=== PATIENT | female | born 1990 | race African-American/Black ===

== ENCOUNTER 2023-04-03 21:06 | Outpatient (REF) | payer BC, SELFPAY ==
[2023-04-09 07:13] LABS: Age Gdln ACOG Testing Note (.); HPV Aptima Positive (Negative); HPV Genotype 16 Negative (Negative); HPV Genotype 18,45 Negative (Negative); IGP, Aptima HPV, rfx 16/18,45 Note (.)
== END 2023-04-03 21:07 | disposition home or self-care (01) ==
LOC: LAB 21:06
PROVIDERS: Visit Provider Obstetrics & Gynecology
DX: Z12.4 Encounter for screening for malignant neoplasm of cervix (principal)
CPT/HCPCS: G0145

== ENCOUNTER 2023-09-17 10:33 | Outpatient (OUT) | payer BC, SELFPAY ==
[2023-09-17 11:14] LABS: Basophils Absolute Auto 0.1 10^3/uL (0.0-0.1); Basophils Percent Auto 1.3 % (0.2-2.0); Eosinophils Absolute Auto 0.1 10^3/uL (0.0-0.7); Eosinophils Percent Auto 1.5 % (0.9-7.0); Hematocrit 30.3 % (36.0-48.0); Hemoglobin 8.8 g/dL (12.0-16.0); Immature Granulocytes Abs Auto 0.02 10^3/uL (0.00-0.03); Immature Granulocytes Pct Auto 0.3 % (0.0-0.5); Lymphocytes Absolute Auto 2.3 10^3/uL (1.2-3.8); Lymphocytes Percent Auto 29.8 % (20.5-60.0); Mean Corpuscular Hemoglobin 23.9 pg (26.7-34.0); Mean Corpuscular Volume 82.3 fL (81.0-99.0); Mean Platelet Volume 10.5 fL (9.5-13.5); Monocytes Absolute Auto 0.7 10^3/uL (0.3-0.8); Monocytes Percent Auto 9.2 % (1.7-12.0); Neutrophils Absolute Auto 4.5 10^3/uL (1.4-6.5); Neutrophils Percent Auto 57.9 % (43.0-75.0); Platelet Count 381 10^3/uL (150-450); Red Blood Count 3.68 10^6/uL (4.20-5.40); Red Cell Distribution Width 15.2 % (11.0-15.0); White Blood Count 7.8 10^3/uL (4.0-11.0)
[2023-09-17 11:23] LABS: Estimated Average Glucose 114 mg/dL; Glycohemoglobin A1C 5.6 % (4.5-6.2)
[2023-09-17 12:00] LABS: Alanine Aminotransferase 21 U/L (14-59); Albumin Globulin Ratio 0.8; Albumin Level 3.2 g/dL (3.4-5.0); Alkaline Phosphatase 67 U/L (46-116); Anion Gap 13.1; Aspartate Amino Transferase 16 U/L (15-37); BUN Creatinine Ratio 15.6; Bilirubin Total 0.2 mg/dL (0.2-1.0); Calcium 8.5 mg/dL (8.5-10.1); Carbon Dioxide 24.8 mmol/L (21.0-32.0); Chloride 108 mmol/L (98-107); Chol HDL Ratio 3.2; Cholesterol 193 mg/dL (<=200); Estimated GFR (African America >60 (>=60); Estimated GFR (Non-African Ame >60 (>=60); Globulin 4.2 g/dL; Glucose 92 mg/dL (74-106); HDL Cholesterol 61 mg/dL (40-60); Potassium 3.9 mmol/L (3.5-5.1); Sodium 142 mmol/L (136-145); Thyroid Stimulating Hormone 0.494 uIU/mL (0.358-3.740); Total Protein 7.4 g/dL (6.4-8.2); Triglycerides 116 mg/dL (<=150); VLDL CHOLESTEROL 23.2 mg/dL
== END 2023-09-17 10:34 | disposition home or self-care (01) ==
LOC: LAB 10:35
PROVIDERS: Visit Provider Nurse Practitioner
DX: Z00.00 Encounter for general adult medical examination without abnormal findings (principal)
CPT/HCPCS: 36415; 80053; 80061; 83036; 84443; 85025

== ENCOUNTER 2023-09-20 03:13 | Outpatient (OUT) | payer BC, SELFPAY ==
--- OUTSIDE RECORDS SUMMARY | 2023-09-20 03:17 | XMS_ITS | CCD ---
Author Name Unknown Address [address] [place] [id number] Organization [facility] Care Team Providers Care Spool Tender Name Role Phone Alice Tamez Unavailable DIPESH, DR JANET Johnson Primary Care Unavailable KARASIK, DR MENJIVAR Admitting Unavailable KARASIK, DR MENJIVAR Attending Unavailable KARASIK, DR MENJIVAR Consulting Unavailable LANDON, DR JANET Johnson Primary Care Unavailable KARASIK, DR MENJIVAR Admitting Unavailable KARASIK, DR MENJIVAR Attending Unavailable KARASIK, DR MENJIVAR Consulting Unavailable HOY, DR SOSA Consulting Unavailable LANDON, DR JANET Johnson Primary Care Unavailable HOY, DR SOSA Admitting Unavailable HOY, DR SOSA Attending Unavailable LANDON, DR JANET Johnson Admitting Unavailable LANDON, DR JANET Johnson Attending Unavailable LANDON, DR JANET Johnson Consulting Unavailable DIPESH, DR JANET Johnson Primary Care Unavailable Oly Reed Unavailable KASSANDRA HODGES Attending Unavailable Medications Current Medications Medication Drug Class(es) Dates Sig (Normalized) Sig (Original) 08/10 (3 sources) 08/10 No t-Taking 08/10 Ac tive montelukast 10 mg oral tablet (5 sources) Leukotriene Receptor Antagonist Start: 06-11-2023 take 1 tablet by mouth every twenty-four hours Montelukast Sodium 10 MG 1 tablet Orally Once a day for 30 day(s) May, Active predniSONE 20 mg oral tablet (3 sources) Start: 06-11-2023 take 1 tablet by mouth every twelve hours predniSONE 20 MG 1 tablet Orally bid for 5 day(s) Jun, Active Completed/Discontinued Medications Medication Drug Class(es) Dates Sig (Normalized) Sig (Original) dextromethorphan hydrobromide 1.5 mg/ml / pyrilamine maleate 1.5 mg/ml oral solution (2 sources) Uncompetitive U-vdhyks-F-aspartat e Receptor Antagonist, Sigma-1 Agonist Start: 06-11-2023 take 10 mL by mouth every eight hours [place] DM 7.5-7.5 MG/5ML 10 mL Orally every 8 hours for 5 days May, Not-Taking {21 (ethinyl estradiol 0.035 MG / ethynodiol diacetate 1 MG Oral Tablet) / (inert ingredients 1 MG Oral Tablet) } Pack [Kelnor 1/35 Day] (2 sources) Progestin, Estrogen take 1 tablet by mouth every twenty-four hours Kelnor 1/35 1-35 MG-MCG 1 tablet Orally Once a day Not-Taking take 1 tablet by connie th every twenty-four hours Kelnor 1/35 1-35 MG-MCG 1 tablet Orally Once a day Active methylPREDNISolone (3 sources) Corticosteroid Start: 06-07-2017 Depo-Medrol 40 mg May, 40 mg penicillin v potassium 500 mg oral tablet (3 sources) Start: 10-12-2021 take 1 tablet by mouth every twelve hours Penicillin V Potassium 500 MG 1 tablet Orally Twice a day for 10 day(s) Sep, Not-Taking Problems Active Problems Problem Classification Problem Date Documented Date Episodic/Chronic Other female genital disorders (4 sources) Other specified noninflammatory disorders of vagina; Translations: [OTH SPEC NONINFLAMMATORY D/O VAGINA] Onset: 08-01-2022 Episodic Other upper respiratory infections (4 sources) Streptococcal pharyngitis; Translations: [Acute upper respiratory infection, unspecified] Onset: 10-12-2021 Resolved: 10-12-2021 Episodic Past or Other Problems Problem Classification Problem Date Documented Date Episodic/Chronic Immunizations and screening for infectious disease (6 sources) Contact with and (suspected) exposure to other viral communicable diseases; Translations: [Encounter for screening for human papillomavirus (HPV)] Onset: 10-05-2021 Resolved: 10-12-2021 Episodic Other screening for suspected conditions (not mental disorders or infectious disease) (4 sources) Encounter for screening for malignant neoplasm of cervix; Translations: [ENC SCREENING MALIG NEOPLASM CERV] Onset: 03-05-2022 Episodic Unclassified (1 source) Contact with and (suspected) exposure to covid-19 Z20.822 Results Test Name Value Interpretation Reference Range Facility [facility] 06-24-2023 S. pyogenes Org specific cx Ql (Throat) Negative [facility] [employer] Other Quick Strep [facility] [employer] Other COVID/FLU/RSV RT-PCRon 06-11 SARS-CoV-2 (COVID-19) RNA NATALIIA+probe Ql (Unsp spec) Negative [facility] [employer] Other COVID/FLU/RSV RT-PCR Negative [facility] [employer] Other CHLAMYDIA/GONOCOCCUS NATALIIA (SW AB/URINE/PAPon 08-03-2022 Chlamydia trachomatis, NATALIIA Negative Normal Negative [facility] Comment on above: Performed By: #### C T/NGNA #### [facility] [address] [place] [address] Dr. Anahy Sarah Neisseria gonorrhoeae, NATALIIA Negative Normal Negative [facility] Comment on above: Performed By: #### C T/NGNA #### [facility] [address] [place] [address] Dr. Anahy Sarah VAGINITIS/VAGINOSIS DNA PROB Omar 08-02-2022 Radha species Positive Abnormal Negative [facility] Comment on above: Performed By: #### V AGINT #### [facility] [address] [place] [address] Dr. Anahy Sarah Gardnerella vaginalis Negative Normal Negative [facility] Comment on above: Performed By: #### V AGINT #### [facility] [address] [place] [address] Dr. Anahy Sarah Trichomonas vaginalis Negative Normal Negative [facility] Comment on above: Performed By: #### V AGINT #### [facility] [address] [place] [address] Dr. Anahy Sarah CBC AUTO DIFFon 04-12-2022 BASO # 0.1 103/ul Normal 0.0-0.1 [facility] Comment on above: Performed By: #### C BC #### [facility] [address] [place] [address] Dr. Anahy Sarah Basophils/100 WBC (Bld) 0.9 % Normal 0.2-2.0 [facility] Comment on above: Performed By: #### C BC #### [facility] [address] [place] [address] Dr. Anahy Sarah EO # 0.1 103/ul Normal 0.0-0.7 [facility] Comment on above: Performed By: #### C BC #### [facility] [address] [place] [address] Dr. Anahy Sarah Eosinophils/100 WBC (Bld) 1.3 % Normal 0.9-7.0 [facility] Comment on above: Performed By: #### C BC #### [facility] [address] [place] [address] Dr. Anahy Sarah Erythrocyte distribution width (RBC) [Ratio] 12.6 % Normal 11.0-15.0 [facility] Comment on above: Performed By: #### C BC #### [facility] [address] [place] [address] Dr. Anahy Sarah Hematocrit (Bld) [Volume fraction] 35.5 % Critically low 36.0-48.0 [facility] Comment on above: Performed By: #### C BC #### [facility] [address] [place] [address] Dr. Anahy Sarah Hemoglobin (Bld) [Mass/Vol] 11.5 g/dL Critically low 12.0-16.0 [facility] Comment on above: Performed By: #### C BC #### [facility] [address] [place] [address] Dr. Anahy Sarah IG # 0.02 10e3/ul Normal 0.00-0.03 [facility] Comment on above: Performed By: #### C BC #### [facility] [address] [place] [address] Dr. Anahy Sarah IG % 0.2 % Normal 0.0-0.5 [facility] Comment on above: Performed By: #### C BC #### [facility] [address] [place] [address] Dr. Anahy Sarah LYMPH # 2.5 103/ul Normal 1.2-3.8 [facility] Comment on above: Performed By: #### C BC #### [facility] [address] [place] [address] Dr. Anahy Sarah Lymphocytes/100 WBC (Bld) 26.3 % Normal 20.5-60.0 [facility] Comment on above: Performed By: #### C BC #### [facility] [address] [place] [address] Dr. Anahy Sarah MANUAL DIFF REQ NO Normal [facility] Comment on above: Performed By: #### C BC #### [facility] [address] [place] [address] Dr. Anahy Sarah MCH (RBC) [Entitic mass] 28.8 pg Normal 26.7-34.0 [facility] Comment on above: Performed By: #### C BC #### [facility] [address] [place] [address] Dr. Anahy Sarah MCHC (RBC) [Mass/Vol] 32.4 g/dL Normal 29.9-35.2 [facility] Comment on above: Performed By: #### C BC #### [facility] [address] [place] [address] Dr. Anahy Sarah MCV (RBC) [Entitic vol] 88.8 fL Normal 81.0-99.0 [facility] Comment on above: Performed By: #### C BC #### [facility] [address] [place] [address] Dr. Anahy Sarah MONO # 0.7 103/ul Normal 0.3-0.8 [facility] Comment on above: Performed By: #### C BC #### [facility] [address] [place] [address] Dr. Anahy Sarah Monocytes/100 WBC (Bld) 7.1 % Normal 1.7-12.0 [facility] Comment on above: Performed By: #### C BC #### [facility] [address] [place] [address] Dr. Anahy Sarah NEUT # 6.0 103/ul Normal 1.4-6.5 [facility] Comment on above: Performed By: #### C BC #### [facility] [address] [place] [address] Dr. Anahy Sarah Neutrophils/100 WBC (Bld) 64.2 % Normal 43.0-75.0 [facility] Comment on above: Performed By: #### C BC #### [facility] [address] [place] [address] Dr. Anahy Sarah Platelet mean volume (Bld) [Entitic vol] 10.1 fL Normal 9.5-13.5 [facility] Comment on above: Performed By: #### C BC #### [facility] [address] [place] [address] Dr. Anahy Sarah PLT 287 103/ul Normal 150-450 [facility] Comment on above: Performed By: #### C BC #### [facility] [address] [place] [address] Dr. Anahy Sarah RBC 4.00 106/ul Critically low 4.20-5.40 [facility] Comment on above: Performed By: #### C BC #### [facility] [address] [place] [address] Dr. Anahy Sarah WBC 9.4 103/ul Normal 4.0-11.0 [facility] Comment on above: Performed By: #### C BC #### [facility] [address] [place] [address] Dr. Anahy Sarah GLYCOHEMOGLOBIN A1Con 2021 ADA RECOMMENDATION SEE BELOW Normal [facility] Comment on above: Result Comment: ADA RECOMMENDED LIMIT 4.0 - 6.0 ADA THERAPEUTIC TARGET < 7.0 ACTION SUGGESTED > 7.0 Performed By: #### A 1C #### [facility] [address] [place] [address] Dr. Anahy Sarah Glucose [Mass/Vol] 111 mg/dL Normal [facility] Comment on above: Performed By: #### A 1C #### [facility] [address] [place] [address] Dr. Anahy Sarah HbA1c (Bld) [Mass fraction] 5.5 % Normal 4.5-6.2 [facility] Comment on above: Performed By: #### A 1C #### [facility] [address] [address] [address] Anahy Sarah LIPID PROFILEon 04-12-2022 CHOL-HDL RATIO NORM SEE BELOW Normal [facility] Comment on above: Result Comment: 3.3 - 4.4 LOW RISK 4.4 - 7.1 AVERAGE RISK 7.1 - 11.0 MODERATE RISK >11.0 HIGH RISK Performed By: #### C MP, LIPID #### [facility] [address] [address] [address] Anahy Sarah Cholesterol [Mass/Vol] 168 mg/dL Normal <=200 [facility] Comment on above: Performed By: #### C MP, LIPID #### [facility] [address] [address] [address] Anahy Sarah Cholesterol in HDL [Mass/Vol] 47 mg/dL Normal 40-60 [facility] Comment on above: Performed By: #### C MP, LIPID #### [facility] [address] [address] [address] Anahy Sarah Cholesterol in LDL [Mass/Vol] 81.8 mg/dL Normal [facility] Comment on above: Performed By: #### C MP, LIPID #### [facility] [address] [address] [address] Anahy Sarah Cholesterol.total/Ch olesterol in HDL [Mass ratio] 3.6 {ratio} Normal [facility] Comment on above: Performed By: #### C MP, LIPID #### [facility] [address] [address] [address] Anahy Sarah HDL NORMAL > or = 60 mg/dl - LOW CARDIOVASCULAR RISK <40 mg/dl - HIGH CARDIOVASCULAR RISK Normal [facility] Comment on above: Performed By: #### C MP, LIPID #### [facility] [address] [address] [address] Anahy Sarah LDL CALC NORMAL SEE BELOW Normal [facility] Comment on above: Result Comment: <100 mg/dl OPTIMAL 100 - 129 mg/dl NEAR OR ABOVE OPTIMAL 130 - 159 mg/dl BORDERLINE HIGH 160 - 189 mg/dl HIGH >190 mg/dl VERY HIGH Performed By: #### C MP, LIPID #### [facility] [address] [place] [address] Dr. Anahy Sarah Triglyceride [Mass/Vol] 196 mg/dL Critically high <=150 [facility] Comment on above: Performed By: #### C MP, LIPID #### [facility] [address] [place] [address] Dr. Anahy Sarah VLDL CALC 39.2 mg/dL Normal [facility] Comment on above: Performed By: #### C MP, LIPID #### [facility] [address] [place] [address] Dr. Anahy Sarah PROF 14(COMP METB)on 022 Albumin [Mass/Vol] 3.5 g/dL Normal 3.4-5.0 [facility] Comment on above: Performed By: #### C MP, LIPID #### [facility] [address] [place] [address] Dr. Anahy Sarah Albumin/Globulin [Mass ratio] 0.9 {ratio} Normal [facility] Comment on above: Performed By: #### C MP, LIPID #### [facility] [address] [place] [address] Dr. Anahy Sarah ALP [Catalytic activity/Vol] 54 U/L Normal 46-116 [facility] Comment on above: Performed By: #### C MP, LIPID #### [facility] [address] [place] [address] Dr. Anahy Sarah ALT [Catalytic activity/Vol] 21 U/L Normal 14-59 [facility] Comment on above: Performed By: #### C MP, LIPID #### [facility] [address] [place] [address] Dr. Anahy Sarah Anion gap [Moles/Vol] 13.3 mmol/L Normal [facility] Comment on above: Performed By: #### C MP, LIPID #### [facility] [address] [place] [address] Dr. Anahy Sarah AST [Catalytic activity/Vol] 14 U/L Critically low 15-37 [facility] Comment on above: Performed By: #### C MP, LIPID #### [facility] [address] [place] [address] Dr. Anahy Sarah Bilirubin [Mass/Vol] 0.4 mg/dL Normal 0.2-1.0 [facility] Comment on above: Performed By: #### C MP, LIPID #### [facility] [address] [place] [address] Dr. Anahy Sarah Calcium [Mass/Vol] 8.5 mg/dL Normal 8.5-10.1 [facility] Comment on above: Performed By: #### C MP, LIPID #### [facility] [address] [place] [address] Dr. Anahy Sarah Chloride [Moles/Vol] 105 mmol/L Normal 98-107 [facility] Comment on above: Performed By: #### C MP, LIPID #### [facility] [address] [place] [address] Dr. Anahy Sarah CO2 [Moles/Vol] 23.4 mmol/L Normal 21.0-32.0 [facility] Comment on above: Performed By: #### C MP, LIPID #### [facility] [address] [place] [address] Dr. Anahy Sarah Creatinine [Mass/Vol] 0.74 mg/dL Normal 0.55-1.02 [facility] Comment on above: Performed By: #### C MP, LIPID #### [facility] [address] [place] [address] Dr. Anahy Sarah EGFR-AF GAMBIAN >60 Normal >=60 [facility] Comment on above: Performed By: #### C MP, LIPID #### [facility] [address] [place] [address] Dr. Anahy Sarah EGFR-NON AF GAMBIAN >60 Normal >=60 [facility] Comment on above: Performed By: #### C MP, LIPID #### [facility] [address] [place] [address] Dr. Anahy Sarah Globulin (S) [Mass/Vol] 3.7 g/dL Normal [facility] Comment on above: Performed By: #### C MP, LIPID #### [facility] [address] [place] [address] Dr. Anahy Sarah Glucose [Mass/Vol] 96 mg/dL Normal 74-106 [facility] Comment on above: Performed By: #### C MP, LIPID #### [facility] [address] [place] [address] Dr. Anahy Sarah Potassium [Moles/Vol] 3.7 mmol/L Normal 3.5-5.1 [facility] Comment on above: Performed By: #### C MP, LIPID #### [facility] [address] [place] [address] Dr. Anahy Sarah Protein [Mass/Vol] 7.2 g/dL Normal 6.4-8.2 [facility] Comment on above: Performed By: #### C MP, LIPID #### [facility] [address] [place] [address] Dr. Anahy Sarah Sodium [Moles/Vol] 138 mmol/L Normal 136-145 [facility] Comment on above: Performed By: #### C MP, LIPID #### [facility] [address] [place] [address] Dr. Anahy Sarah Urea nitrogen [Mass/Vol] 6.0 mg/dL Critically low 7.0-18.0 [facility] Comment on above: Performed By: #### C MP, LIPID #### [facility] [address] [place] [address] Dr. Anahy Sarah Urea nitrogen/Creatinine [Mass ratio] 8.1 mg/mg Normal [facility] Comment on above: Performed By: #### C MP, LIPID #### [facility] [address] [place] [address] Dr. Anahy Sarah PAP ACOG PANEL 2: 30 to 65on 03-09-2022 . . Normal [facility] Comment on above: Result Comment: Perf ormed at: WB Performed By: #### [id number] #### [facility] [address] [place] [address] Dr. Anahy Sarah Age Gdln ACOG Testing 30-65 Normal [facility] Comment on above: Performed By: #### [id number] #### [facility] [address] [place] [address] Dr. Anahy Sarah DIAGNOSIS: Comment Normal [facility] Comment on above: Result Comment: NEGA TIVE FOR INTRAEPITHELIAL LESION OR MALIGNANCY. Performed at: WB Performed By: #### [id number] #### [facility] [address] [place] [address] Dr. Anahy Sarah HPV Aptima Negative Normal Negative [facility] Comment on above: Result Comment: This nucleic acid amplification test detects fourteen high-risk HPV types (16,18,31,33,35,39,45,51,52,56,58,59,66,68) without differentiation. Performed at: =G Performed By: #### [id number] #### [facility] [address] [place] [address] Dr. Anahy Sarah Methodology: Comment Normal [facility] Comment on above: Result Comment: This liquid based ThinPrep(R) pap test was screened with the use of an image guided system. Performed at: WB Performed By: #### [id number] #### [facility] [address] [place] [address] Dr. Anahy Sarah Note: Comment Normal [facility] Comment on above: Result Comment: The Pap smear is a screening test designed to aid in the detection of premalignant and malignant conditions of the uterine cervix. It is not a diagnostic procedure and should not be used as the sole means of detecting cervical cancer. Both false-positive and false-negative reports do occur. . Performed at: WB Performed By: #### [id number] #### [facility] [address] [place] [address] Dr. Anahy Sarah Performed by: Comment Normal [facility] Comment on above: Result Comment: Nayla Gacria, Bird Raiser (ASCP) Performed at: WB Performed By: #### [id number] #### [facility] [address] [place] [address] Dr. Anahy Sarah Specimen adequacy: Comment Normal [facility] Comment on above: Result Comment: Sati sfactory for evaluation. Endocervical and/or squamous metaplastic cells (endocervical component) are present. Performed at: WB Performed By: #### [id number] #### [facility] [address] [address] [address] Anahy Sarah COVID Quick Testingon 2021 Result Negative [facility] Other Quick Fluon 10-12-2021 FLUAV Ab CF (S) [Titer] Negative [facility] Other FLUBV Ab CF (S) [Titer] Negative [facility] Other S. pyogenes Ag Ql (Throat)on 10-12-2021 S. pyogenes Org specific cx Ql (Throat) Positive [facility] Other Vital Signs Date Time Vital Sign Value Performing Clinician Facility 06-24-2023 11:15-0500 Body height 167.64 cm Oly Cervantesmond Other [facility] Other 06-24-2023 11:15-0500 Body mass index (BMI) [Ratio] 38.73 kg/m2 Oly Brianna Other [facility] Other 06-24-2023 11:15-0500 Body temperature 99.8 [degF] Olytrent Reed Other [facility] Other 06-24-2023 11:15-0500 Body weight 108.86 kg Oly Brianna Other [facility] Other 06-24-2023 11:15-0500 Respiratory rate 19 /min Oly Reed Other [facility] Other 06-24-2023 11:15-0500 SaO2% (BldA) [Mass fraction] 98 % Oly Reed Other [facility] Other 06-11-2023 12:20-0500 Body height 167.64 cm Alice Tamez Other [facility] Other 06-11-2023 12:20-0500 Body mass index (BMI) [Ratio] 39.25 kg/m2 Alice Tamez Other [facility] Other 06-11-2023 12:20-0500 Body temperature 98.4 [degF] Alcie Tamez Other [facility] Other 06-11-2023 12:20-0500 Body weight 110.32 kg Alice Tamez Other [facility] Other 06-11-2023 12:20-0500 Diastolic blood pressure 93 mm[Hg] Alice Atmez Other [facility] Other 06-11-2023 12:20-0500 Respiratory rate 18 /min Alice Tamez Other [facility] Other 06-11-2023 12:20-0500 SaO2% (BldA) [Mass fraction] 97 % Alice Tamez Other [facility] Other 06-11-2023 12:20-0500 Systolic blood pressure 144 mm[Hg] Alice Tamez Other [facility] Other 10-12-2021 10:20-0400 Body height 167.64 cm Alice Tamez Other [facility] Other 10-12-2021 10:20-0400 Body mass index (BMI) [Ratio] 38.73 kg/m2 Alice Taemz Other [facility] Other 10-12-2021 10:20-0400 Body temperature 98.3 [degF] Alice Tamez Other [facility] Other 10-12-2021 10:20-0400 Body weight 108.86 kg Alice Tamez Other [facility] Other 10-12-2021 10:20-0400 Respiratory rate 18 /min Alice Forteler Other [facility] Other 10-12-2021 10:20-0400 SaO2% (BldA) [Mass fraction] 97 % Alice Forteler Other [facility] Other Encounters Encounter Date Encounter Type Care Provider Facility Start: 08-22-2023 End: 08-22-2023 ambulatory KASSANDRA SPARKSSILVANO Not Available Start: 06-24-2023 End: 06-24-2023 ambulatory Oly Reed Other [facility] Other Start: 06-24-2023 Office outpatient vi sit 15 minutes Oly Reed [facility] Start: 06-11-2023 End: 06-11-2023 ambulatory Alice Tamez Other [facility] Other Start: 06-11-2023 Office outpatient vi sit 25 minutes Alice Tamez [facility] Start: 08-01-2022 End: 08-01-[address] JANET LANDON Facility:[facility] Start: 04-17-2022 Encounter for genera l adult medical examination without abnormal findings DR JANET LANDON [facility] Start: 04-12-2022 End: 04-13-[address] JANET LANDON Facility:[facility] Start: 04-12-2022 End: 04-13-2022 Encounter for general adult medical examination without abnormal findings DR JANET LANDON Facility:[facility] Start: 03-05-2022 End: 03-05-[address] JANET LANDON Facility:[facility] Start: 10-12-2021 End: 10-12-2021 ambulatory Alice Tamez Other [facility] Other Start: 10-12-2021 Office outpatient vi sit 15 minutes Alice Tamez [facility] Start: 10-05-2021 End: 10-06-[address] SHEILA LYONS Facility:[facility] Payers Date Payer Category Payer Unknown [id number] 2019 Unknown [id number] 1991 Unknown [id number] 2.16.84 [id number] 1991 Unknown [id number] 2.16.84 [id number] 1991 Unknown [id number] 2.16.84 [id number] 1991 Unknown [id number] 2.16.84 [id number] 1959 Self-pay [id number] Unknown [id number] 2.16.84 [id number] Social History Date Type Detail Facility Unknown if ever smoked [facility] [employer] Other Sex Assigned At Sex Assigned At Bir th [employer] Other Evaluation note 06-24-2023 Note Date & Type Note Facility 06-24-2023 Evaluation note Encounter Date Diagnosis Assessment Notes Jun, Sore throat (ICD-10 - J02.9) Jun, Laryngitis (ICD-10 - J04.0) Laryngitis home care material was printed Drink plenty fluids, get plenty of rest. Take the prednisone as prescribed until gone. Take Tylenol or Motrin as needed for aches pains or fevers. Run a coolmist humidifier at the bedside. Follow-up with your family physician if no improvement in 2 to 3 days [employer] Other Evaluation note 06-11-2023 Note Date & Type Note Facility 06-11-2023 Evaluation note Encounter Date Diagnosis Assessment Notes May, Contact with and (suspected) exposure to covid-19 (ICD-10 - Z20.822) May, Viral URI with cough (ICD-10 - J06.9) Advised patient that COVID/Influenza A/B/RSV PCR test was negative today in office. Advised that we will treat as viral URI. Advised that viral illnesses may last 7-10 days, antibiotics are not indicated at this time. Encouraged supportive care as directed, increase fluids and rest, Tylenol as directed, rx of [place] and prednisone, OTC Flonase, cool mist humidifier, throat lozenges. Patient requested refill of Singulair, states that PCP has retired and that she is on a wait list for a new one. Will send in 30-day supply with no refills. Discussed infection control practices such as good hand washing and mask wearing. Work note provided, no extension allowed. Patient to follow up with PCP if symptoms persist or worsen despite treatment. Immediate eval for SOB, difficulty breathing, chest pain, fevers that do not break with antipyretic or any other concerning symptoms as reviewed on patient education handout. Patient verbalizes understanding and is agreeable to treatment plan. Patient left in stable condition [employer] Other Evaluation note 10-12-2021 Note Date & Type Note Facility 10-12-2021 Evaluation note Encounter Date Diagnosis Assessment Notes Sep, Contact with and (suspected) exposure to other viral communicable diseases (ICD-10 - Z20.828) Sep, Strep pharyngitis (ICD-10 - J02.0) Advised patient that rapid strep test was positive. Advised that rapid COVID antigen and Influenza A/B test was negative. Will treat today with antibiotic. Reviewed allergies and recent antibiotic use. Instructed patient to take antibiotic as prescribed, with food and plenty of water, complete entire course even if feeling better. Advised patient that they are contagious for 24 hours after starting antibiotic. Discussed infection control and good hand hygiene. New tooth brush in 2-3 days after starting antibiotic. Supportive care as directed. Push fluids and rest, Tylenol or Motrin as needed for fever or discomfort, warm salt water gargles, throat lozenges as needed. Patients symptoms should improve in the next 48 hours, eval by PCP or UC if symptoms have not improved with treatment. Discussed in depth warning symptoms that require immediate eval. Patient verbalizes understanding and is agreeable to treatment plan Sep, Other Additional time spent conducting pre-visit phone call, screening for symptoms, instructions on social distancing, application and removal of PPE, and cleaning of examination room, equipment and supplies was preformed. Patient education given for testing methodology and results. Patient care instructions given in writting by [facility] At Home document [employer] Other History general Narrative - Reported Note Date & Type Note Facility History general Narrative - Reported Type Medical History asthma Surgical History cyst removal 2004 Hospitalization History See Above Hospitalization History covid 2020 [employer] Other Summary Purpose Family History No Family History Records FoundNo Family History Records Found Advance Directives No Advanced Directives Records FoundNo Advanced Directives Records Found Additional Source Comments REASON FOR VISIT (unrecogniz ed section and content) BLACK JOURDAN, SORE THRAOT, B/A, FEVERWHEEZING AND SORE THROAT, COUGHSORE THROAT, VOICE IS LEAVING INFORMATION SOURCE (unrecogn ized section and content) DATE CREATED AUTHOR 08/03/2022 [facility] DATE CREATED AUTHOR 'S ORGANIZ ATION 08/23/2023 [facility] FOR RECORDS PERTAINING TO PATIENTS WHO ARE OR HAVE BEEN ENROLLED IN A CHEMICAL DEPENDENCY/SUBSTANCEABUSE PROGRAM, SOME INFORMATION MAY BE OMITTED. This clinical summary was aggregated from multiple sources. Caution should be exercised in using it in the provision of clinical care. This summary normalizes information from multiple sources, and as a consequence, information in this document may materially change the coding, format and clinical context of patient data. In addition, data may be omitted in some cases. CLINICAL DECISIONS SHOULD BE BASED ON THE PRIMARY CLINICAL RECORDS. [facility] [employer] [facility]. provides no warranty or guarantee of the accuracy or completeness of information in this document.
== END 2023-09-20 03:14 | disposition home or self-care (01) ==
LOC: LAB 03:14
PROVIDERS: Visit Provider Nurse Practitioner
DX: D64.89 Other specified anemias (principal)
CPT/HCPCS: 36415; 82607; 82728; 83540

== ENCOUNTER 2023-10-17 10:53 | Outpatient (OUT) | payer BC, SELFPAY ==
--- NOTE | 2023-10-17 10:55 | US_ITS ---
The [address] [address] Patient Name: CHRIS GARIBAY MRN: [id number] date: 1990 Sex: F Assigned Patient Location: [facility] Current Patient Location: [facility] Accession/Order Number: [id number] Exam Date: 10/17/2023 10:56 Report Date: 10/17/2023 13:47 At the request of: JENNY HAMMER Procedure: US pelvis w/ transvaginal EXAMINATION: US pelvis w/ transvaginal HISTORY: HEAVY IRREGULAR PERIODS COMPARISON: No relevant comparison available. FINDINGS: Transabdominal and transvaginal images The uterus is prominent in size, normal in contour, the uterus measures 10.4 x 4.8 x 7.2 cm. the uterus is anteverted, anteflexed. Heterogeneous myometrium with a 1.2 cm hypoechogenic mass in the fundal myometrium The endometrium measures 15 mm, heterogeneous. The right ovary measures 3.0 x 1.8 x 2.9. Normal color flow. Normal subcentimeter follicles. The left ovary is seen on transabdominal imaging only measuring 3.2 x 2.2 x 2.9 cm. Normal color flow US/US pelvis w/ transvaginal IMPRESSION: Heterogeneous myometrium is a 1.2 cm fundal mass. Fibroid is favored Prominent heterogeneous endometrium, correlate with the menstrual cycle Electronically authenticated by: MAREN STEPHENSON Date: 10/17/2023 13:47
== END 2023-10-17 10:54 | disposition home or self-care (01) ==
LOC: NOMS 10:54
PROVIDERS: PCP Family Medicine; Visit Provider Obstetrics & Gynecology
DX: N92.6 Irregular menstruation, unspecified (principal); E88.819 Insulin resistance, unspecified
CPT/HCPCS: 76830; 76856

== ENCOUNTER 2023-10-24 10:39 | Outpatient (OUT) | payer BC, SELFPAY ==
[2023-10-24 11:07] LABS: Basophils Absolute Auto 0.1 10^3/uL (0.0-0.1); Basophils Percent Auto 1.2 % (0.2-2.0); Eosinophils Absolute Auto 0.1 10^3/uL (0.0-0.7); Eosinophils Percent Auto 1.4 % (0.9-7.0); Hematocrit 34.4 % (36.0-48.0); Hemoglobin 10.4 g/dL (12.0-16.0); Immature Granulocytes Abs Auto 0.01 10^3/uL (0.00-0.03); Immature Granulocytes Pct Auto 0.1 % (0.0-0.5); Lymphocytes Absolute Auto 2.3 10^3/uL (1.2-3.8); Lymphocytes Percent Auto 29.1 % (20.5-60.0); Mean Corpuscular HGB Conc 30.2 g/dL (29.9-35.2); Mean Corpuscular Hemoglobin 26.2 pg (26.7-34.0); Mean Corpuscular Volume 86.6 fL (81.0-99.0); Mean Platelet Volume 10.3 fL (9.5-13.5); Monocytes Absolute Auto 0.7 10^3/uL (0.3-0.8); Neutrophils Absolute Auto 4.6 10^3/uL (1.4-6.5); Neutrophils Percent Auto 59.2 % (43.0-75.0); Platelet Count 259 10^3/uL (150-450); Red Blood Count 3.97 10^6/uL (4.20-5.40); Red Cell Distribution Width 18.8 % (11.0-15.0); White Blood Count 7.8 10^3/uL (4.0-11.0)
== END 2023-10-24 10:40 | disposition home or self-care (01) ==
PROVIDERS: PCP Nurse Practitioner; Visit Provider Nurse Practitioner
DX: D50.9 Iron deficiency anemia, unspecified (principal)
CPT/HCPCS: 36415; 85025

== ENCOUNTER 2023-11-12 11:12 | Outpatient (REF) | payer BC, SELFPAY | END 2023-11-12 11:13 | disposition home or self-care (01) | LOC: LAB 11:12 | PROVIDERS: PCP Nurse Practitioner; Visit Provider Obstetrics & Gynecology | DX: N92.0 Excessive and frequent menstruation with regular cycle (principal) | CPT/HCPCS: 88305 ==

== ENCOUNTER 2023-12-25 10:01 | Outpatient (OUT) | payer BC, SELFPAY ==
--- NOTE | 2023-12-25 10:05 | US_ITS ---
[address] [address] Patient Name: CHRIS GARIBAY MRN: [id number] date: 1990 Sex: F Assigned Patient Location: [facility] Current Patient Location: [facility] Accession/Order Number: [id number] Exam Date: 12/25/2023 10:05 Report Date: 12/25/2023 11:26 At the request of: JENNY HAMMER Procedure: US pelvis transvaginal EXAMINATION: US pelvis transvaginal HISTORY: IRREGULAR BLEEDING WITH IUD COMPARISON: No relevant comparison available. TECHNIQUE: Transabdominal and/or transvaginal sonographic examination was performed as indicated by examination type. FINDINGS: UTERUS: Contains multiple myometrial masses suspected represent leiomyomas, please include a 6.0 cm, 5.9 cm, 3.2 cm, 1.9 cm and a 1.6 cm mass. The largest mass is suspected to contact the endometrial lining. Uterus size: 10.5 x 5.2 x 7.0 cm ENDOMETRIUM: Abnormally thickened. Endometrial thickness: 18 mm RIGHT OVARY: Normal size and appearance. Duplex Doppler demonstrates normal waveform and flow; resistive index 0.5. Ovary size: 3.5 x 2.4 x 3.6 cm LEFT OVARY: Not seen. CUL-DE-SAC: Unremarkable. No significant free fluid. BLADDER: Unremarkable. OTHER: None. US/US pelvis transvaginal IMPRESSION: 1. Multiple masses within the uterus favoring leiomyomas. One of these appears to contact the endometrial lining which could contribute to patient's irregular bleeding. 2. Abnormally thickened endometrial, 18 mm. 3. No IUD visible within the endometrial cavity. Electronically authenticated by: BULMARO MEJIAS Date: 12/25/2023 11:26
== END 2023-12-25 10:02 | disposition home or self-care (01) ==
LOC: NOMS 10:02
PROVIDERS: PCP Nurse Practitioner; Visit Provider Obstetrics & Gynecology
DX: N92.6 Irregular menstruation, unspecified (principal); Z30.431 Encounter for routine checking of intrauterine contraceptive device; N93.9 Abnormal uterine and vaginal bleeding, unspecified; D25.9 Leiomyoma of uterus, unspecified
CPT/HCPCS: 76830

== ENCOUNTER 2023-12-30 12:52 | Outpatient (OUT) | payer BC, SELFPAY ==
--- OUTSIDE RECORDS SUMMARY | 2023-12-30 12:57 | XMS_ITS ---
Patient Summarization (C-CDA 2.1 CCD) Created on: December 30, 2023 CHRIS GARIBAY~PHOENIX PEREZ : 1990 Sex: Female Author Organization Sample organization Care Team Providers Care Linux System Administrator Name Role Phone Alice Tamez Unavailable DIPESH, DR JANET Johnson Primary Care Unavailable KARASIK, DR MENJIVAR Admitting Unavailable KARASIK, DR MENJIVAR Attending Unavailable KARASIK, DR MENJIVAR Consulting Unavailable LANDON, DR JANET Johnson Primary Care Unavailable KARASIK, DR MENJIVAR Admitting Unavailable KARASIK, DR MENJIVAR Attending Unavailable KARASIK, DR MENJIVAR Consulting Unavailable HOY, DR SOSA Consulting Unavailable DIPESH, DR JANET Johnson Primary Care Unavailable HOY, DR SOSA Admitting Unavailable HOY, DR SOSA Attending Unavailable LANDON, DR JANET Johnson Admitting Unavailable LANDON, DR JANET Johnson Attending Unavailable LANDON, DR JANET Johnson Consulting Unavailable LANDON, DR JANET Johnson Primary Care Unavailable Oly Reed Unavailable NO FAMILY, PHYSICIAN Primary Care Provider Unava ilable Jenny Alvarez Attending Provider NO FAMILY, PHYSICIAN Primary Care Unavailable Jenny Alvarez Attending Unavailable Adrienne Alvarezy Admitting Unavailable KASSANDRA HODGES Attending Unavailable KASSANDRA HODGES Attending Unavailable HARMANADRIENNEY Attending Unavailable HARMAN, JENNY Attending Unavailable HARMAN, JENNY Attending Unavailable HARMAN, JENNY Attending Unavailable Encounters Encounter Date Encounter Type Care Provider Facility Start: 12-23-2023 End: 12-23-2023 ambulatory JENNY HARMAN Not Available Start: 11-25-2023 End: 11-25-2023 ambulatory JENNY HARMAN Not Available Start: 11-12-2023 End: 11-12-2023 ambulatory PHYSICIAN NO [facility] Facility:[facility] Start: 11-12-2023 End: 11-12-2023 Departed Referred PHYSICIAN NO [facility] Start: 11-12-2023 End: 11-12-2023 ambulatory PHYSICIAN TWIN [facility] Work Phone: Start: 10-14-2023 End: 10-14-2023 ambulatory JENNY ALVAREZ Not Available Start: 10-01-2023 End: 10-01-2023 ambulatory KASSANDRA AICHHOLZ Not Available Start: 08-22-2023 End: 08-22-2023 ambulatory KASSANDRA AICHHOLZ Not Available Start: 06-24-2023 End: 06-24-2023 ambulatory Oly Reed Other [facility] Other Start: 06-24-2023 Office outpatient vi sit 15 minutes Oly Reed [facility] Start: 06-11-2023 End: 06-11-2023 ambulatory Alice Tamez Other [facility] Other Start: 06-11-2023 Office outpatient vi sit 25 minutes Alice Tamez [facility] Start: 08-01-2022 End: 08-01-[address] JANET LANDON Facility:[facility] Start: 04-17-2022 Encounter for genera l adult medical examination without abnormal findings DR JANET LANDON [facility] Start: 04-12-2022 End: 04-13-[address] JANET LANDON Facility:[facility] Start: 04-12-2022 End: 04-13-2022 Encounter for general adult medical examination without abnormal findings DR JANET LANDON Facility:[facility] Start: 03-05-2022 End: 03-05-[address] JANET LANDON Facility:[facility] Start: 10-12-2021 End: 10-12-2021 ambulatory Alice Tamez Other [facility] Other Start: 10-12-2021 Office outpatient vi sit 15 minutes Alice Tamez [facility] Start: 10-05-2021 End: 10-06-[address] SHEILA LYONS Facility:[facility] Medications Current Medications Medication Drug Class(es) Dates [...] 1.5 mg/ml oral solution (2 sources) Uncompetitive I-otfkuq-Z-aspartat e Receptor Antagonist, Sigma-1 Agonist Start: 06-11-2023 take 10 mL by mouth every eight hours [place] DM 7.5-7.5 MG/5ML 10 mL Orally every 8 hours for 5 days May, Not-Taking { (ethinyl estradiol 0.035 MG / ethynodiol diacetate [...] a day for 10 day(s) Sep, Not-Taking Payers Date Payer Category Payer Self-pay 2022 Unknown [id number] 2019 Unknown [id number] 2. [id number] 1990 Unknown [id number] 2.16.84 [id number] 1990 Unknown [id number] 2.16.84 [id number] 1990 Unknown [id number] 2.16.84 [id number] 1990 Unknown [id number] 2.16.84 [id number] 1990 Unknown [id number] 2.16.84 [id number] 1990 Unknown [id number] 2.16.84 [id number] 1990 Unknown [id number] 2.16.84 [id number] 1990 Unknown [id number] 2.16.84 [id number] 1990 Unknown [id number] 2.16.84 [id number] 1958 Self-pay [id number] Unknown [id number] 2.16.84 [id number] Problems Active Problems Problem Classification Problem Date [...] Test Name Value Interpretation Reference Range Facility [facility] 11-12-2023 L Specimen: [id number] Received: 11/13/23 Status: AGNES Brown Num: [id number] Spec Type: Surgical Subm Dr: Jenny Alvarez Tissues: A Endometrium - Biopsy (EMB) Procedures: HE/2, Gross/Micro L4 Age/ Patient Sex Location Account Attending Physician Chris Garibay Juan 33/F [place] [id number] Jenny Alvarez SPEC NUM: [id number] RECD: 11/13/23 STATUS: AGNES BROWN NUM: [id number] LASHELL: 11/12/23 DR: Jenny Alvarez ENTERED: 11/13/[address] [facility] [address]: Laurie,Lab SPEC TYPE: Surgical DEPT: JEANE SILVERIO ORDERED: HE/2, Gross/Micro L4 ORDERED: HE/2, Gross/Micro L4 Pathological Diagnosis Endometrium, biopsy: Benign endometrium with stromal breakdown. Gross Description The specimen is received in formalin, labeled with the patient's name and endometrial biopsy (per requisition). It consist of an aggregate of trujillo tissue, blood clot and mucus collectively measuring 2.0 x 1.3 x 0.3 cm, entirely submitted in A1. Clinical history: Menorrhagia CPT Codes 14957 Specimen: [id number] Received: 11/13/23 Status: AGNES Brown Num: [id number] Spec Type: Surgical Subm Dr: Jenny Alvarez Tissues: A Endometrium - Biopsy (EMB) Procedures: HE/2, Gross/Micro L4 Patient: Chris Garibay [id number] (Continued) Signed (signature on file) Jazmin Andrews MD 11/14/23 1547 Normal [facility] Quick Strepon 06-24-2023 S. pyogenes Org specific cx Ql (Throat) Negative [facility] Other Quick Strep [facility] Other COVID/FLU/RSV RT-PCRon 06-11 SARS-CoV-2 (COVID-19) RNA NATALIIA+probe Ql (Unsp spec) Negative [facility] Other COVID/FLU/RSV RT-PCR Negative [facility] [place] Other CHLAMYDIA/GONOCOCCUS NATALIIA (SW AB/URINE/PAPon 08-03-2022 Chlamydia trachomatis, NATALIIA Negative Normal Negative [facility] Comment on above: Performed By: #### C T/NGNA #### [facility] [address] [place] [address] Dr. Anahy Sarah Neisseria gonorrhoeae, NATALIIA Negative Normal Negative [facility] Comment on above: Performed By: #### C T/NGNA #### [facility] [address] [place] [address] Dr. Anahy Sarah VAGINITIS/VAGINOSIS DNA PROB Omar 08-02-2022 Radha species Positive Abnormal Negative [facility] Comment on above: Performed By: #### V AGINT #### [facility] [address] [place] [address] Dr. Anahy Sarah Gardnerella vaginalis Negative Normal Negative [facility] Comment on above: Performed By: #### V AGINT #### [facility] [address] [place] [address] Dr. Anahy Sarah Trichomonas vaginalis Negative Normal Negative [facility] Comment on above: Performed By: #### V AGINT #### [facility] [address] [place] [address] Dr. Anahy Sarah CBC AUTO DIFFon 04-12-2022 BASO # 0.1 103/ul Normal 0.0-0.1 [facility] Comment on above: Performed By: #### C BC #### [facility] [address] [place] [address] Dr. Anahy Sarah Basophils/100 WBC (Bld) 0.9 % Normal 0.2-2.0 [facility] Comment on above: Performed By: #### C BC #### [facility] [address] [place] [address] Dr. Anahy Sarah EO # 0.1 103/ul Normal 0.0-0.[address] [facility] Comment on above: Performed By: #### C BC #### [facility] [address] [place] [address] Dr. Anahy Sarah Eosinophils/100 WBC (Bld) 1.3 % Normal 0.9-7.0 [facility] Comment on above: Performed By: #### C BC #### [facility] [address] [place] [address] Dr. Anahy Sarah Erythrocyte distribution width (RBC) [Ratio] 12.6 % Normal 11.0-15.0 [facility] Comment on above: Performed By: #### C BC #### [facility] [address] [place] [address] Dr. Anahy Sarah Hematocrit (Bld) [Volume fraction] 35.5 % Critically low 36.0-48.0 [facility] Comment on above: Performed By: #### C BC #### [facility] [address] [place] [address] Dr. Anahy Sarah Hemoglobin (Bld) [Mass/Vol] 11.5 g/dL Critically low 12.0-16.0 [facility] Comment on above: Performed By: #### C BC #### [facility] [address] [place] [address] Dr. Anahy Sarah IG # 0.02 10e3/ul Normal 0.00-0.03 [facility] Comment on above: Performed By: #### C BC #### [facility] [address] [place] [address] Dr. Anahy Sarah IG % 0.2 % Normal 0.0-0.5 [facility] Comment on above: Performed By: #### C BC #### [facility] [address] [place] [address] Dr. Anahy Sarah LYMPH # 2.5 103/ul Normal 1.2-3.[address] [facility] Comment on above: Performed By: #### C BC #### [facility] [address] [place] [address] Dr. Anahy Sarah Lymphocytes/100 WBC (Bld) 26.3 % Normal 20.5-60.[address] [facility] Comment on above: Performed By: #### C BC #### [facility] [address] [place] [address] Dr. Anahy Sarah MANUAL DIFF REQ NO Normal [facility] Comment on above: Performed By: #### C BC #### [facility] [address] [place] [address] Dr. Anahy Sarah MCH (RBC) [Entitic mass] 28.8 pg Normal 26.7-34.0 [facility] Comment on above: Performed By: #### C BC #### [facility] [address] [place] [address] Dr. Anahy Sarah MCHC (RBC) [Mass/Vol] 32.4 g/dL Normal 29.9-35.2 [facility] Comment on above: Performed By: #### C BC #### [facility] [address] [place] [address] Dr. Anahy Sarah MCV (RBC) [Entitic vol] 88.8 fL Normal 81.0-99.0 [facility] Comment on above: Performed By: #### C BC #### [facility] [address] [place] [address] Dr. Anahy Sarah MONO # 0.7 103/ul Normal 0.3-0.8 [facility] Comment on above: Performed By: #### C BC #### [facility] [address] [place] [address] Dr. Anahy Sarah Monocytes/100 WBC (Bld) 7.1 % Normal 1.7-12.0 [facility] Comment on above: Performed By: #### C BC #### [facility] [address] [place] [address] Dr. Anahy Sarah NEUT # 6.0 103/ul Normal 1.4-6.5 [facility] Comment on above: Performed By: #### C BC #### [facility] [address] [place] [address] Dr. Anahy Sarah Neutrophils/100 WBC (Bld) 64.2 % Normal 43.0-75.[address] [facility] Comment on above: Performed By: #### C BC #### [facility] [address] [place] [address] Dr. Anahy Sarah Platelet mean volume (Bld) [Entitic vol] 10.1 fL Normal 9.5-13.[address] [facility] Comment on above: Performed By: #### C BC #### [facility] [address] [place] [address] Dr. Anahy Sarah PLT 287 103/ul Normal 150-[address] [facility] Comment on above: Performed By: #### C BC #### [facility] [address] [address] [address] Anahy Sarah RBC 4.00 106/ul Critically low 4.20-5.40 [facility] Comment on above: Performed By: #### C BC #### [facility] [address] [address] [address] Anahy Sarah WBC 9.4 103/ul Normal 4.0-11.0 [facility] Comment on above: Performed By: #### C BC #### [facility] [address] [place] [address] Dr. Anahy Sarah GLYCOHEMOGLOBIN A1Con 2021 ADA RECOMMENDATION SEE BELOW Normal [facility] Comment on above: Result Comment: ADA RECOMMENDED LIMIT 4.0 - 6.0 ADA THERAPEUTIC TARGET < 7.0 ACTION SUGGESTED > 7.0 Performed By: #### A 1C #### [facility] [address] [place] [address] Dr. Anahy Sarah Glucose [Mass/Vol] 111 mg/dL Normal [facility] Comment on above: Performed By: #### A 1C #### [facility] [address] [place] [address] Dr. Anahy Sarah HbA1c (Bld) [Mass fraction] 5.5 % Normal 4.5-6.2 [facility] Comment on above: Performed By: #### A 1C #### [facility] [address] [place] [address] Dr. Anahy Sarah LIPID PROFILEon 04-12-2022 CHOL-HDL RATIO NORM SEE BELOW Normal [facility] Comment on above: Result Comment: 3.3 - 4.4 LOW RISK 4.4 - 7.1 AVERAGE RISK 7.1 - 11.0 MODERATE RISK >11.0 HIGH RISK Performed By: #### C MP, LIPID #### [facility] [address] [place] [address] Dr. Anahy Sarah Cholesterol [Mass/Vol] 168 mg/dL Normal <=200 [facility] Comment on above: Performed By: #### C MP, LIPID #### [facility] [address] [address] [address] Anahy Sarah Cholesterol in HDL [Mass/Vol] 47 mg/dL Normal 40-60 [facility] Comment on above: Performed By: #### C MP, LIPID #### [facility] [address] [address] [address] Anahy Sarah Cholesterol in LDL [Mass/Vol] 81.8 mg/dL Normal [facility] Comment on above: Performed By: #### C MP, LIPID #### [facility] [address] [address] [address] Anahy Sarah Cholesterol.total/Ch olesterol in HDL [Mass ratio] 3.6 {ratio} Normal [facility] Comment on above: Performed By: #### C MP, LIPID #### [facility] [address] [address] [address] Anahy Sarah HDL NORMAL > or = 60 mg/dl - LOW CARDIOVASCULAR RISK <40 mg/dl - HIGH CARDIOVASCULAR RISK Normal [facility] Comment on above: Performed By: #### C MP, LIPID #### [facility] [address] [place] [address] Dr. Anahy Sarah LDL CALC NORMAL SEE BELOW Normal [facility] Comment on above: Result Comment: <100 mg/dl OPTIMAL 100 - 129 mg/dl NEAR OR ABOVE OPTIMAL 130 - 159 mg/dl BORDERLINE HIGH 160 - 189 mg/dl HIGH >190 mg/dl VERY HIGH Performed By: #### C MP, LIPID #### [facility] [address] [address] [address] Anahy Sarah Triglyceride [Mass/Vol] 196 mg/dL Critically high <=[address] [facility] Comment on above: Performed By: #### C MP, LIPID #### [facility] [address] [address] [address] Anahy Sarah VLDL CALC 39.2 mg/dL Normal [facility] Comment on above: Performed By: #### C MP, LIPID #### [facility] [address] [address] [address] Anahy Sarah PROF 14(COMP METB)on 022 Albumin [Mass/Vol] 3.5 g/dL Normal 3.4-5.[address] [facility] Comment on above: Performed By: #### C MP, LIPID #### [facility] [address] [address] [address] Anahy Sarah Albumin/Globulin [Mass ratio] 0.9 {ratio} Normal [facility] Comment on above: Performed By: #### C MP, LIPID #### [facility] [address] [address] [address] Anahy Sarah ALP [Catalytic activity/Vol] 54 U/L Normal 46-116 [facility] Comment on above: Performed By: #### C MP, LIPID #### [facility] [address] [place] [address] Dr. Anahy Sarah ALT [Catalytic activity/Vol] 21 U/L Normal 14-59 [facility] Comment on above: Performed By: #### C MP, LIPID #### [facility] [address] [address] [address] Anahy Sarah Anion gap [Moles/Vol] 13.3 mmol/L Normal [facility] Comment on above: Performed By: #### C MP, LIPID #### [facility] [address] [address] [address] Anahy Sarah AST [Catalytic activity/Vol] 14 U/L Critically low 15-37 [facility] Comment on above: Performed By: #### C MP, LIPID #### [facility] [address] [address] [address] Anahy Sarah Bilirubin [Mass/Vol] 0.4 mg/dL Normal 0.2-1.0 [facility] Comment on above: Performed By: #### C MP, LIPID #### [facility] [address] [address] [address] Anahy Sarah Calcium [Mass/Vol] 8.5 mg/dL Normal 8.5-10.1 [facility] Comment on above: Performed By: #### C MP, LIPID #### [facility] [address] [address] [address] Anahy Sarah Chloride [Moles/Vol] 105 mmol/L Normal 98-107 [facility] Comment on above: Performed By: #### C MP, LIPID #### [facility] [address] [place] [address] Dr. Anahy Sarah CO2 [Moles/Vol] 23.4 mmol/L Normal 21.0-32.0 [facility] Comment on above: Performed By: #### C MP, LIPID #### [facility] [address] [place] [address] Dr. Anahy Sarah Creatinine [Mass/Vol] 0.74 mg/dL Normal 0.55-1.[address] [facility] Comment on above: Performed By: #### C MP, LIPID #### [facility] [address] [place] [address] Dr. Anahy Sarah EGFR-AF TURKS AND CAICOS ISLANDER >60 Normal >=60 [facility] Comment on above: Performed By: #### C MP, LIPID #### [facility] [address] [place] [address] Dr. Anahy Sarah EGFR-NON AF TURKS AND CAICOS ISLANDER >60 Normal >=60 [facility] Comment on above: Performed By: #### C MP, LIPID #### [facility] [address] [place] [address] Dr. Anahy Sarah Globulin (S) [Mass/Vol] 3.7 g/dL Normal [facility] Comment on above: Performed By: #### C MP, LIPID #### [facility] [address] [address] [address] Anahy Sarah Glucose [Mass/Vol] 96 mg/dL Normal 74-106 [facility] Comment on above: Performed By: #### C MP, LIPID #### [facility] [address] [place] [address] Dr. Anahy Sarah Potassium [Moles/Vol] 3.7 mmol/L Normal 3.5-5.1 [facility] Comment on above: Performed By: #### C MP, LIPID #### [facility] [address] [place] [address] Dr. Anahy Sarah Protein [Mass/Vol] 7.2 g/dL Normal 6.4-8.[address] [facility] Comment on above: Performed By: #### C MP, LIPID #### [facility] [address] [place] [address] Dr. Anahy Sarah Sodium [Moles/Vol] 138 mmol/L Normal 136-145 [facility] Comment on above: Performed By: #### C MP, LIPID #### [facility] [address] [address] [address] Anahy Sarah Urea nitrogen [Mass/Vol] 6.0 mg/dL Critically low 7.0-18.0 [facility] Comment on above: Performed By: #### C MP, LIPID #### [facility] [address] [place] [address] Dr. Anahy Sarah Urea nitrogen/Creatinine [Mass ratio] 8.1 mg/mg Normal [facility] Comment on above: Performed By: #### C MP, LIPID #### [facility] [address] [place] [address] Dr. Anahy Sarah PAP ACOG PANEL 2: 30 to 65on 03-09-2022 . . Normal [facility] Comment on above: Result Comment: Perf ormed at: WB Performed By: #### [id number] #### [facility] [address] [place] [address] Dr. Anahy Sarah Age Gdln ACOG Testing 30-65 Normal [facility] Comment on above: Performed By: #### [id number] #### [facility] [address] [place] [address] Dr. Anahy Sarah DIAGNOSIS: Comment Normal [facility] Comment on above: Result Comment: NEGA TIVE FOR INTRAEPITHELIAL LESION OR MALIGNANCY. Performed at: WB Performed By: #### [id number] #### [facility] [address] [place] [address] Dr. Anahy Sarah HPV Aptima Negative Normal Negative [facility] Comment on above: Result Comment: This nucleic acid amplification test detects fourteen high-risk HPV types (16,18,31,33,35,39,45,51,52,56,58,59,66,68) without differentiation. Performed at: =G Performed By: #### [id number] #### [facility] [address] [place] [address] Dr. Anahy Sarah Methodology: Comment Normal [facility] Comment on above: Result Comment: This liquid based ThinPrep(R) pap test was screened with the use of an image guided system. Performed at: WB Performed By: #### [id number] #### [facility] [address] [place] [address] Dr. Anahy Sarah Note: Comment Normal [facility] Comment on above: Result Comment: The Pap smear is a screening test designed to aid in the detection of premalignant and malignant conditions of the uterine cervix. It is not a diagnostic procedure and should not be used as the sole means of detecting cervical cancer. Both false-positive and false-negative reports do occur. . Performed at: WB Performed By: #### [id number] #### [facility] [address] [place] [address] Dr. Anahy Sarah Performed by: Comment Normal [facility] Comment on above: Result Comment: Nayla Garcia, Powder Blender (ASCP) Performed at: WB Performed By: #### [id number] #### [facility] [address] [place] [address] Dr. Anahy Sarah Specimen adequacy: Comment Normal [facility] Comment on above: Result Comment: Sati sfactory for evaluation. Endocervical and/or squamous metaplastic cells (endocervical component) are present. Performed at: WB Performed By: #### [id number] #### [facility] [address] [place] [address] Dr. Anahy Sarah COVID Quick Testingon 2021 Result Negative [facility] Other Quick Fluon 10-12-2021 FLUAV Ab CF (S) [Titer] Negative [facility] Other FLUBV Ab CF (S) [Titer] Negative [facility] Other S. pyogenes Ag Ql (Throat)on 10-12-2021 S. pyogenes Org specific cx Ql (Throat) Positive [facility] Other Social History Date Type Detail Facility Start: 11-13-2023 Tobacco smoking status NHIS Never smoked tobacco (finding) [facility] Start: 1990 Sex Assigned At Female F [facility] Unknown if ever smoked [facility] Other Sex Assigned At Sex Assigned At Bir th [facility] Other Vital Signs Date Time Vital Sign Value Performing Clinician Facility 06-24-2023 11:15-0500 Body height 167.64 cm Oly Brianna Other [facility] Other 06-24-2023 11:15-0500 Body mass index (BMI) [Ratio] 38.73 kg/m2 Oly Brianna Other [facility] Other 06-24-2023 11:15-0500 Body temperature 99.8 [degF] Oly Reed Other [facility] Other 06-24-2023 11:15-0500 Body weight 108.86 kg Oly Cervantesmond Other [facility] Other 06-24-2023 11:15-0500 Respiratory rate 19 /min Oly Brianna Other [facility] Other 06-24-2023 11:15-0500 SaO2% (BldA) [Mass fraction] 98 % Oly Cervantesmond Other [facility] Other 06-11-2023 12:20-0500 Body height 167.64 cm Alice Tamez Other [facility] Other 06-11-2023 12:20-0500 Body mass index (BMI) [Ratio] 39.25 kg/m2 Alice Tamez Other [facility] Other 06-11-2023 12:20-0500 Body temperature 98.4 [degF] Alice Tamez Other [facility] Other 06-11-2023 12:20-0500 Body weight 110.32 kg Alice Tamez Other [facility] Other 06-11-2023 12:20-0500 Diastolic blood pressure 93 mm[Hg] Alice Tamez Other [facility] Other 06-11-2023 12:20-0500 Respiratory rate 18 /min Alice Tamez Other [facility] Other 06-11-2023 12:20-0500 SaO2% (BldA) [Mass fraction] 97 % Alice Tamez Other [facility] Other 06-11-2023 12:20-0500 Systolic blood pressure 144 mm[Hg] Alice Tamez Other [facility] Other 10-12-2021 10:20-0400 Body height 167.64 cm Alice Tamez Other [facility] Other 10-12-2021 10:20-0400 Body mass index (BMI) [Ratio] 38.73 kg/m2 Alice Tamez Other [facility] Other 10-12-2021 10:20-0400 Body temperature 98.3 [degF] Alice Tamez Other [facility] Other 10-12-2021 10:20-0400 Body weight 108.86 kg Alice Tamez Other [facility] Other 10-12-2021 10:20-0400 Respiratory rate 18 /min Alice Tamez Other [facility] Other 10-12-2021 10:20-0400 SaO2% (BldA) [Mass fraction] 97 % Alice Tamez Other [facility] Other Evaluation note 06-24-2023 Note Date & [...] no improvement in 2 to 3 days [facility] Other Evaluation note 06-11-2023 Note Date & [...] and rest, Tylenol as directed, rx of [place] and prednisone, OTC Flonase, cool mist humidifier, [...] treatment plan. Patient left in stable condition [facility] Other Evaluation note 10-12-2021 Note Date & [...] Patient care instructions given in writting by [facility] document [facility] Other Evaluation note Note Date & Type Note Facility Evaluation note No assessment information availa [facility] Work Phone: History general Narrative - Reported Note Date & Type Note Facility History general Narrative - Reported Type Medical History asthma Surgical History cyst removal 2004 Hospitalization History See Above Hospitalization History covid 2020 [facility] Other Summary Purpose Family History No Family History Records Found Relationship Condition Age at Onset Recorded Date/T boubacar father Hypertension Unknown Advance Directives No Advanced Directives Records FoundNo Advanced Directives Records FoundNo Advanced Directives Records Found Additional Source Comments REASON FOR VISIT (unrecogniz ed section and content) BLACK JOURDAN, SORE THRAOT, B/A, FEVERWHEEZING AND SORE THROAT, COUGHSORE THROAT, VOICE IS LEAVING INFORMATION SOURCE (unrecogn ized section and content) DATE CREATED AUTHOR 08/03/2022 [facility] DATE CREATED AUTHOR AUTHOR'S ORGANIZ ATION 11/15/2023 [facility] DATE CREATED AUTHOR AUTHOR'S ORGANIZ ATION 12/23/2023 [facility] EPIC Care Teams (unrecognized sec tion and content) Team Status: Active Member Role Status Dates PHYSICIAN NO FAMILY Primary Care Provider Active Team Status: Inactive Member Role Status Dates PHYSICIAN NO FAMILY Primary Care Provider Active Start: November 12, 2023 End: November 12, 2023 Jenny Alvarez Attending Provider Active Start: 2023 End: November 12, 2023 Goals (unrecognized section and content) Goals may be documented in a n alternate section FOR RECORDS PERTAINING TO PATIENTS WHO ARE [...] BE BASED ON THE PRIMARY CLINICAL RECORDS. [facility] [employer] [facility]. provides no warranty or guarantee of the accuracy or completeness of information in this document.
--- NOTE | 2023-12-30 13:06 | XR_ITS ---
The [address] [address] Patient Name: CHRIS GARIBAY MRN: [id number] date: 1990 Sex: F Assigned Patient Location: [place] Current Patient Location: Accession/Order Number: [id number] Exam Date: 12/30/2023 13:18 Report Date: 12/31/2023 07:04 At the request of: JENNY HAMMER Procedure: XR abdomen 1V EXAMINATION: XR abdomen 1V HISTORY: Fibroids, Heavy Bleeding COMPARISON: No relevant comparison available. FINDINGS: BOWEL GAS PATTERN: No abnormal dilation or deviation. CALCIFICATIONS: None significant. OTHER: IUD projects over the mid pelvis XR/XR abdomen 1V IMPRESSION: Nonobstructive bowel gas pattern Electronically authenticated by: MAREN STEPHENSON Date: 12/31/2023 07:04
== END 2023-12-30 12:53 | disposition home or self-care (01) ==
LOC: US 12:52
PROVIDERS: PCP Nurse Practitioner; Visit Provider Obstetrics & Gynecology
DX: N93.9 Abnormal uterine and vaginal bleeding, unspecified (principal); D21.9 Benign neoplasm of connective and other soft tissue, unspecified
CPT/HCPCS: 74018

== ENCOUNTER 2024-01-08 14:20 | Outpatient (OUT) | payer BC, SELFPAY ==
--- OUTSIDE RECORDS SUMMARY | 2024-01-08 14:43 | XMS_ITS | CCD ---
Author Organization [facility] CliniSyaz Care Team Providers Care Retail Gift Card Merchandising Name Role Phone Alice Tamez Unavailable DIPESH, [...] Provider Unava ilable Jenny Alvarez Attending Provider [phone] NO FAMILY, PHYSICIAN Primary Care Unavailable Jenny Alvarez Attending Unavailable Jenny Alvarez Admitting Unavailable KASSANDRA HODGES Attending Unavailable KASSANDRA HODGES Attending Unavailable JENNY ALVAREZ Attending Unavailable JENNY ALVAREZ Attending Unavailable JENNY ALVAREZ Attending Unavailable JENNY ALVAREZ Attending Unavailable Medications Current Medications Medication Drug [...] 1.5 mg/ml oral solution (2 sources) Uncompetitive X-ztymuo-G-aspartat e Receptor Antagonist, Sigma-1 Agonist Start: 06-11-2023 take 10 mL by mouth every eight hours [place] DM 7.5-7.5 MG/5ML 10 mL Orally every [...] Test Name Value Interpretation Reference Range Facility [facility] 11-12-2023 L Specimen: [id number] Received: 11/13/23 Status: AGNES Conroyeliane Num: [id number] Spec Type: Surgical Subm Dr: Jenny Alvarez Tissues: A Endometrium - Biopsy (EMB) Procedures: HE/2, Gross/Micro L4 Age/ Patient Sex Location Account Attending Physician Chris Garibay 33/F [place] [id number] Jenny Alvarez SPEC NUM: [id number] RECD: 11/13/23 STATUS: AGNES CONROYElaine NUM: [id number] LASHELL: 11/12/23- SUBM DR: Jenny Alvarez ENTERED: 11/13/[address] [facility] DR: Laurie,Lab SPEC TYPE: Surgical DEPT: JEANE [...] in A1. Clinical history: Menorrhagia CPT Codes 11833 Specimen: [id number] Received: 11/13/23 Status: AGNES Brown Num: [id number] Spec Type: Surgical Subm Dr: Jenny Alvarez Tissues: A Endometrium - Biopsy (EMB) Procedures: HE/Elizabeth, Felicia/Amanda L4 Patient: Chris Garibay [id number] (Continued) Signed (signature on file) Jazmin Andrews MD 11/14/23 1547 Normal [facility] Quick Strepon 06-24-2023 S. pyogenes Org specific cx Ql (Throat) Negative [facility] Other Quick Strep [facility] Other COVID/FLU/RSV RT-PCRon 06-11 SARS-CoV-2 (COVID-19) RNA NATALIIA+probe Ql (Unsp spec) Negative [facility] Other COVID/FLU/RSV RT-PCR Negative [facility] Other CHLAMYDIA/GONOCOCCUS NATALIIA (SW AB/URINE/PAPon 08-03-2022 Chlamydia trachomatis, NATALIIA Negative Normal Negative [facility] Comment on above: Performed By: #### C T/NGNA #### [facility] [address] [place] [address] Dr. Anahy Sarah Neisseria gonorrhoeae, NATALIIA Negative Normal Negative [facility] Comment on above: Performed By: #### C T/NGNA #### [facility] [address] [place] [address] Dr. Anahy Sarah VAGINITIS/VAGINOSIS DNA PROB Omar 08-02-2022 Radha species Positive Abnormal Negative [facility] Comment on above: Performed By: #### V AGINT #### [facility] [address] [place] [address] Dr. Anahy Sarah Gardnerella vaginalis Negative Normal Negative [facility] Comment on above: Performed By: #### V AGINT #### [facility] [address] [place] [address] Dr. Anahy Sarah Trichomonas vaginalis Negative Normal Negative [facility] Comment on above: Performed By: #### V AGINT #### [facility] [address] [place] [address] Dr. Anahy Sarah CBC AUTO DIFFon 04-12-2022 BASO # 0.1 103/ul Normal 0.0-0.1 [facility] Comment on above: Performed By: #### C BC #### [facility] [address] [place] [address] Dr. Anahy Sarah Basophils/100 WBC (Bld) 0.9 % Normal 0.2-2.0 [facility] Comment on above: Performed By: #### C BC #### [facility] [address] [place] [address] Dr. Anahy Sarah EO # 0.1 103/ul Normal 0.0-0.7 [facility] Comment on above: Performed By: #### C BC #### [facility] [address] [place] [address] Dr. Anahy Sarah Eosinophils/100 WBC (Bld) 1.3 % Normal 0.9-7.0 [facility] Comment on above: Performed By: #### C BC #### [facility] [address] [place] [address] Dr. Anahy Sarah Erythrocyte distribution width (RBC) [Ratio] 12.6 % Normal 11.0-15.0 [facility] Comment on above: Performed By: #### C BC #### [facility] [address] [place] [address] Dr. Anahy Sarah Hematocrit (Bld) [Volume fraction] 35.5 % Critically low 36.0-48.0 [facility] Comment on above: Performed By: #### C BC #### [facility] [address] [place] [address] Dr. Anahy Sarah Hemoglobin (Bld) [Mass/Vol] 11.5 g/dL Critically low 12.0-16.0 [facility] Comment on above: Performed By: #### C BC #### [facility] [address] [place] [address] Dr. Anahy Sarah IG # 0.02 10e3/ul Normal 0.00-0.03 [facility] Comment on above: Performed By: #### C BC #### [facility] [address] [place] [address] Dr. Anahy Sarah IG % 0.2 % Normal 0.0-0.5 [facility] Comment on above: Performed By: #### C BC #### [facility] [address] [place] [address] Dr. Anahy Sarah LYMPH # 2.5 103/ul Normal 1.2-3.8 [facility] Comment on above: Performed By: #### C BC #### [facility] [address] [place] [address] Dr. Anahy Sarah Lymphocytes/100 WBC (Bld) 26.3 % Normal 20.5-60.0 [facility] Comment on above: Performed By: #### C BC #### [facility] [address] [place] [address] Dr. Anahy Sarah MANUAL DIFF REQ NO Normal [facility] Comment on above: Performed By: #### C BC #### [facility] [address] [place] [address] Dr. Anahy Sarah MCH (RBC) [Entitic mass] 28.8 pg Normal 26.7-34.0 [facility] Comment on above: Performed By: #### C BC #### [facility] [address] [place] [address] Dr. Anahy Sarah MCHC (RBC) [Mass/Vol] 32.4 g/dL Normal 29.9-35.2 [facility] Comment on above: Performed By: #### C BC #### [facility] [address] [place] [address] Dr. Anahy Sarah MCV (RBC) [Entitic vol] 88.8 fL Normal 81.0-99.0 [facility] Comment on above: Performed By: #### C BC #### [facility] [address] [place] [address] Dr. Anahy Sarah MONO # 0.7 103/ul Normal 0.3-0.8 [facility] Comment on above: Performed By: #### C BC #### [facility] [address] [place] [address] Dr. Anahy Sarah Monocytes/100 WBC (Bld) 7.1 % Normal 1.7-12.0 [facility] Comment on above: Performed By: #### C BC #### [facility] [address] [place] [address] Dr. Anahy Sarah NEUT # 6.0 103/ul Normal 1.4-6.5 [facility] Comment on above: Performed By: #### C BC #### [facility] [address] [place] [address] Dr. Anahy Sarah Neutrophils/100 WBC (Bld) 64.2 % Normal 43.0-75.0 [facility] Comment on above: Performed By: #### C BC #### [facility] [address] [place] [address] Dr. Anahy Sarah Platelet mean volume (Bld) [Entitic vol] 10.1 fL Normal 9.5-13.5 [facility] Comment on above: Performed By: #### C BC #### [facility] [address] [address] [address] Anahy Sarah PLT 287 103/ul Normal 150-450 [facility] Comment on above: Performed By: #### C BC #### [facility] [address] [id number] [address] Anahy Sarah RBC 4.00 106/ul Critically low 4.20-5.40 [facility] Comment on above: Performed By: #### C BC #### [facility] [address] [address] [address] Anahy Sarah WBC 9.4 103/ul Normal 4.0-11.0 [facility] Comment on above: Performed By: #### C BC #### [facility] [address] [address] [address] Anahy Sarah GLYCOHEMOGLOBIN A1Con 2021 ADA RECOMMENDATION SEE BELOW Normal [facility] Comment on above: Result Comment: ADA RECOMMENDED LIMIT 4.0 - 6.0 ADA THERAPEUTIC TARGET < 7.0 ACTION SUGGESTED > 7.0 Performed By: #### A 1C #### [facility] [address] [place] [address] Dr. Anahy Sarah Glucose [Mass/Vol] 111 mg/dL Normal [facility] Comment on above: Performed By: #### A 1C #### [facility] [address] [address] [address] Anahy Sarah HbA1c (Bld) [Mass fraction] 5.5 % Normal 4.5-6.2 [facility] Comment on above: Performed By: #### A 1C #### [facility] [address] [address] [address] Anahy Sarah LIPID PROFILEon 04-12-2022 CHOL-HDL RATIO NORM SEE BELOW Normal [facility] Comment on above: Result Comment: 3.3 - 4.4 LOW RISK 4.4 - 7.1 AVERAGE RISK 7.1 - 11.0 MODERATE RISK >11.0 HIGH RISK Performed By: #### C MP, LIPID #### [facility] [address] [address] [address] Anahy Sarah Cholesterol [Mass/Vol] 168 mg/dL Normal <=200 [facility] Comment on above: Performed By: #### C MP, LIPID #### [facility] [address] [address] [address] Anahy Sarah Cholesterol in HDL [Mass/Vol] 47 mg/dL Normal 40-60 [facility] Comment on above: Performed By: #### C MP, LIPID #### [facility] [address] [address] [address] Anahy Sarah Cholesterol in LDL [Mass/Vol] 81.8 mg/dL Normal [facility] Comment on above: Performed By: #### C MP, LIPID #### [facility] [address] [address] [address] Anahy Sarah Cholesterol.total/Ch olesterol in HDL [Mass ratio] 3.6 {ratio} Normal [facility] Comment on above: Performed By: #### C MP, LIPID #### [facility] [address] [place] [address] Dr. Anahy Sarah HDL NORMAL > or = 60 mg/dl - LOW CARDIOVASCULAR RISK <40 mg/dl - HIGH CARDIOVASCULAR RISK Normal [facility] Comment on above: Performed By: #### C MP, LIPID #### [facility] [address] [place] [address] Dr. Anahy Sarah LDL CALC NORMAL SEE BELOW Normal [facility] Comment on above: Result Comment: <100 mg/dl OPTIMAL 100 - 129 mg/dl NEAR OR ABOVE OPTIMAL 130 - 159 mg/dl BORDERLINE HIGH 160 - 189 mg/dl HIGH >190 mg/dl VERY HIGH Performed By: #### C MP, LIPID #### [facility] [address] [address] [address] Anahy Sarah Triglyceride [Mass/Vol] 196 mg/dL Critically high <=150 [facility] Comment on above: Performed By: #### C MP, LIPID #### [facility] [address] [address] [address] Anahy Sarah VLDL CALC 39.2 mg/dL Normal [facility] Comment on above: Performed By: #### C MP, LIPID #### [facility] [address] [address] [address] Anahy Sarah PROF 14(COMP METB)on 022 Albumin [Mass/Vol] 3.5 g/dL Normal 3.4-5.0 [facility] Comment on above: Performed By: #### C MP, LIPID #### [facility] [address] [address] [address] Anahy Sarah Albumin/Globulin [Mass ratio] 0.9 {ratio} Normal [facility] Comment on above: Performed By: #### C MP, LIPID #### [facility] [address] [place] [address] Dr. Anahy Sarah ALP [Catalytic activity/Vol] 54 U/L Normal 46-116 [facility] Comment on above: Performed By: #### C MP, LIPID #### [facility] [address] [place] [address] Dr. Anahy Sarah ALT [Catalytic activity/Vol] 21 U/L Normal 14-59 [facility] Comment on above: Performed By: #### C MP, LIPID #### [facility] [address] [place] [address] Dr. Anahy Sarah Anion gap [Moles/Vol] 13.3 mmol/L Normal [facility] Comment on above: Performed By: #### C MP, LIPID #### [facility] [address] [address] [address] Anahy Sarah AST [Catalytic activity/Vol] 14 U/L Critically low 15-37 [facility] Comment on above: Performed By: #### C MP, LIPID #### [facility] [address] [address] [address] Anahy Sarah Bilirubin [Mass/Vol] 0.4 mg/dL Normal 0.2-1.0 [facility] Comment on above: Performed By: #### C MP, LIPID #### [facility] [address] [place] [address] Dr. Anahy Sarah Calcium [Mass/Vol] 8.5 mg/dL Normal 8.5-10.1 [facility] Comment on above: Performed By: #### C MP, LIPID #### [facility] [address] [address] [address] Anahy Sarah Chloride [Moles/Vol] 105 mmol/L Normal 98-107 [facility] Comment on above: Performed By: #### C MP, LIPID #### [facility] [address] [address] [address] Anahy Sarah CO2 [Moles/Vol] 23.4 mmol/L Normal 21.0-32.[address] [facility] Comment on above: Performed By: #### C MP, LIPID #### [facility] [address] [address] [address] Anahy Sarah Creatinine [Mass/Vol] 0.74 mg/dL Normal 0.55-1.02 [facility] Comment on above: Performed By: #### C MP, LIPID #### [facility] [address] [address] [address] Anahy Sarah EGFR-AF SRI LANKAN >60 Normal >=60 [facility] Comment on above: Performed By: #### C MP, LIPID #### [facility] [address] [address] [address] Anahy Sarah EGFR-NON AF SRI LANKAN >60 Normal >=60 [facility] Comment on above: Performed By: #### C MP, LIPID #### [facility] [address] [address] [address] nAahy Sarah Globulin (S) [Mass/Vol] 3.7 g/dL Normal [facility] Comment on above: Performed By: #### C MP, LIPID #### [facility] [address] [address] [address] Anahy Sarah Glucose [Mass/Vol] 96 mg/dL Normal 74-106 [facility] Comment on above: Performed By: #### C MP, LIPID #### [facility] [address] [address] [address] Anahy Sarah Potassium [Moles/Vol] 3.7 mmol/L Normal 3.5-5.1 [facility] Comment on above: Performed By: #### C MP, LIPID #### [facility] [address] [address] [address] Anahy Sarah Protein [Mass/Vol] 7.2 g/dL Normal 6.4-8.2 [facility] Comment on above: Performed By: #### C MP, LIPID #### [facility] [address] [address] [address] Anahy Sarah Sodium [Moles/Vol] 138 mmol/L Normal 136-145 [facility] Comment on above: Performed By: #### C MP, LIPID #### [facility] [address] [address] [address] Anahy Sarah Urea nitrogen [Mass/Vol] 6.0 mg/dL Critically low 7.0-18.0 [facility] Comment on above: Performed By: #### C MP, LIPID #### [facility] [address] [address] [address] Anahy Sarah Urea nitrogen/Creatinine [Mass ratio] 8.1 mg/mg [facility] Comment on above: Performed By: #### C MP, LIPID #### [facility] [address] [address] [address] Anahy Sarah PAP ACOG PANEL 2: 30 to 65on 03-09-2022 . . Normal [facility] Comment on above: Result Comment: Perf ormed at: WB Performed By: #### [id number] #### [facility] [address] [address] [address] Anahy Sarah Age Gdln ACOG Testing -66 Normal [facility] Comment on above: Performed By: #### [id number] #### [facility] [address] [address] [address] Anahy Sarah DIAGNOSIS: Comment Normal [facility] Comment on above: Result Comment: NEGA TIVE FOR INTRAEPITHELIAL LESION OR MALIGNANCY. Performed at: [facility] Performed By: #### [id number] #### [facility] [address] [address] [address] Anahy Sarah HPV Aptima Negative Normal Negative [facility] Comment on above: Result Comment: This nucleic acid amplification test detects fourteen high-risk HPV types (16,18,31,33,35,39,45,51,52,56,58,59,66,68) without differentiation. Performed at: =G Performed By: #### [id number] #### [facility] [address] [place] [address] Dr. Anahy Sarah Methodology: Comment Normal [facility] Comment on above: Result Comment: This liquid based ThinPrep(R) pap test was screened with the use of an image guided system. Performed at: WB Performed By: #### [id number] #### [facility] [address] [place] [address] Dr. Anahy Sarah Note: Comment Normal [facility] Comment on above: Result Comment: The Pap smear is a screening test designed to aid in the detection of premalignant and malignant conditions of the uterine cervix. It is not a diagnostic procedure and should not be used as the sole means of detecting cervical cancer. Both false-positive and false-negative reports do occur. . Performed at: WB Performed By: #### [id number] #### [facility] [address] [place] [address] Dr. Anahy Sarah Performed by: Comment Normal [facility] Comment on above: Result Comment: Nayla Garcia, Computer Customer Support Specialist (ASCP) Performed at: WB Performed By: #### [id number] #### [facility] [address] [place] [address] Dr. Anahy Sarah Specimen adequacy: Comment Normal [facility] Comment on above: Result Comment: Sati sfactory for evaluation. Endocervical and/or squamous metaplastic cells (endocervical component) are present. Performed at: WB Performed By: #### [id number] #### [facility] [address] [place] [address] Dr. Anahy Sarah COVID Quick Testingon 2021 Result Negative [facility] Other Quick Fluon 10-12-2021 FLUAV Ab CF (S) [Titer] Negative [facility] Other FLUBV Ab CF (S) [Titer] Negative [facility] Other S. pyogenes Ag Ql (Throat)on 10-12-2021 S. pyogenes Org specific cx Ql (Throat) Positive [facility] Other Vital Signs Date Time Vital Sign Value Performing Clinician Facility 06-24-2023 11:15-0500 Body height 167.64 cm Oly Reed Other [facility] Other 06-24-2023 11:15-0500 Body mass index (BMI) [Ratio] 38.73 kg/m2 Oly Reed Other [facility] Other 06-24-2023 11:15-0500 Body temperature 99.8 [degF] Oly Reed Other [facility] Other 06-24-2023 11:15-0500 Body weight 108.86 kg Oly Reed Other [facility] Other 06-24-2023 11:15-0500 Respiratory rate 19 /min Oly Reed Other [facility] Other 06-24-2023 11:15-0500 SaO2% (BldA) [Mass fraction] 98 % Oly Cervantesmond Other [facility] Other 06-11-2023 12:20-0500 Body height 167.64 cm Alice Tamez Other [facility] Other 06-11-2023 12:20-0500 Body mass index (BMI) [Ratio] 39.25 kg/m2 Alice Tamez Other [facility] Other 06-11-2023 12:20-0500 Body temperature 98.4 [degF] Alice Tamez Other [facility] Other 06-11-2023 12:20-0500 Body weight 110.32 kg Alice Tamez Other [facility] Other 06-11-2023 12:20-0500 Diastolic blood pressure 93 mm[Hg] Alice Tamez Other [facility] Other 06-11-2023 12:20-0500 Respiratory rate 18 /min Alice Tamez Other [facility] Other 06-11-2023 12:20-0500 SaO2% (BldA) [Mass fraction] 97 % Alice Tamez Other [facility] Other 06-11-2023 12:20-0500 Systolic blood pressure 144 mm[Hg] Alice Tamez Other [facility] Other 10-12-2021 10:20-0400 Body height 167.64 cm Alice Tamez Other [facility] Other 10-12-2021 10:20-0400 Body mass index (BMI) [Ratio] 38.73 kg/m2 Alice Tamez Other [facility] Other 10-12-2021 10:20-0400 Body temperature 98.3 [degF] Alice Tamez Other [facility] Other 10-12-2021 10:20-0400 Body weight 108.86 kg Alice Tamez Other [facility] Other 10-12-2021 10:20-0400 Respiratory rate 18 /min Laice Tamez Other [facility] Other 10-12-2021 10:20-0400 SaO2% (BldA) [Mass fraction] 97 % Alice Tamez Other [facility] Other Encounters Encounter Date Encounter Type Care Provider Facility Start: 12-23-2023 End: 12-23-2023 ambulatory JENNY HARMAN Not Available Start: 11-25-2023 End: 11-25-2023 ambulatory JENNY HARMAN Not Available Start: 11-12-2023 End: 11-12-2023 ambulatory PHYSICIAN NO FAMILY Facility:[facility] Start: 11-12-2023 End: 11-12-2023 Departed Referred PHYSICIAN NO [facility] Start: 11-12-2023 End: 11-12-2023 ambulatory PHYSICIAN NO [facility] Work Phone: Start: 10-14-2023 End: 10-14-2023 ambulatory JENNY HARMAN Not Available Start: 10-01-2023 End: 10-01-2023 ambulatory KASSANDRA AICHHOLZ Not Available Start: 08-22-2023 End: 08-22-2023 ambulatory KASSANDRA AICHHOLZ Not Available Start: 06-24-2023 End: 06-24-2023 ambulatory Oly Reed Other [facility] Other Start: 06-24-2023 Office outpatient vi sit 15 minutes Oly Reed [facility] Start: 06-11-2023 End: 06-11-2023 ambulatory Alice Tamez Other [facility] Other Start: 06-11-2023 Office outpatient vi sit 25 minutes Alice Tamez [facility] Start: 08-01-2022 End: 08-01-[address] JANET LANDON Facility:[facility] Start: 04-17-2022 Encounter for genera l adult medical examination without abnormal findings DR JANET LANDON [facility] Start: 04-12-2022 End: 04-13-[address] JANET LANDON Facility:[facility] Start: 04-12-2022 End: 04-13-2022 Encounter for general adult medical examination without abnormal findings DR JANET LANDON Facility:[facility] Start: 03-05-2022 End: 03-05-[address] JANET LANDON Facility:[facility] Start: 10-12-2021 End: 10-12-2021 ambulatory Alice Tamez Other [facility] Other Start: 10-12-2021 Office outpatient vi sit 15 minutes Alice Tamez [facility] Start: 10-05-2021 End: 10-06-[address] SHEILA LYONS Facility:[facility] Payers Date Payer Category Payer Self-pay 2022 Unknown [id number] 2019 Unknown [id number] 1991 Unknown [id number] 1991 Unknown [id number] 2.16.84 0.1.002018.3.579.2.593 1991 Unknown [id number] 2.16.84 0.1.608113.3.579.2.593 1991 Unknown [id number] 2.16.84 0.1.648736.3.579.2.1259 1991 Unknown [id number] 2.16.84 0.1.119405.3.579.2.1259 1991 Unknown [id number] 2.16.84 0.1.522809.3.579.2.1258 1991 Unknown [id number] 2.16.84 0.1.707704.3.579.2.1259 1991 Unknown [id number] 2.16.84 0.1.964561.3.579.2.9 1991 Unknown [id number] 2.16.84 0.1.868356.3.579.2.1259 1959 Self-pay [id number] Unknown [id number] 2.16.84 0.1.328772.3.579.2.593 Social History Date Type Detail Facility Unknown if ever smoked [facility] Other Sex Assigned At Sex Assigned At Bir th [facility] Other Start: 11-13-2023 Tobacco smoking status NHIS Never smoked tobacco (finding) [facility] Start: 1990 Sex Assigned At Female F [facility] Evaluation note 06-24-2023 Note Date & Type [...] no improvement in 2 to 3 days [facility] Other Evaluation note 06-11-2023 Note Date & [...] and rest, Tylenol as directed, [facility] [place] and prednisone, OTC Flonase, cool mist humidifier, [...] treatment plan. Patient left in stable condition [facility] Other Evaluation note 10-12-2021 Note Date & [...] Patient care instructions given in writting by [facility] At Home document [facility] Other Evaluation note Note Date & Type Note Facility Evaluation note No assessment information availa [facility] Work Phone: History general Narrative - Reported Note Date & Type Note Facility History general Narrative - Reported Type Medical History asthma Surgical History cyst removal 2004 Hospitalization History See Above Hospitalization History covid 2020 [facility] [employer] Other Summary Purpose Family History No Family [...] and content) DATE CREATED AUTHOR 08/03/2022 [facility] DATE CREATED AUTHOR AUTHOR'S ORGANIZ ATION 11/15/2023 [facility] DATE CREATED AUTHOR AUTHOR'S ORGANIZ ATION 12/23/2023 [facility] [employer] Care Teams (unrecognized sec tion and content) Team Status: Active Member Role Status Dates PHYSICIAN NO FAMILY Primary Care Provider Active Team Status: Inactive Member Role Status Dates PHYSICIAN NO FAMILY Primary Care Provider Active Start: November 12, 2023 End: November 12, 2023 Jenny Alvarez Attending Provider Active Start: Ap 2023 End: November 12, 2023 Goals (unrecognized [...] BE BASED ON THE PRIMARY CLINICAL RECORDS. [facility] [employer] [facility]. provides no warranty or guarantee of the accuracy or completeness of information in this document.
[2024-01-08 15:03] LABS: Basophils Absolute Auto 0.1 10^3/uL (0.0-0.1); Basophils Percent Auto 1.1 % (0.2-2.0); Eosinophils Absolute Auto 0.1 10^3/uL (0.0-0.7); Eosinophils Percent Auto 2.1 % (0.9-7.0); Hematocrit 31.3 % (36.0-48.0); Immature Granulocytes Abs Auto 0.01 10^3/uL (0.00-0.03); Immature Granulocytes Pct Auto 0.2 % (0.0-0.5); Lymphocytes Absolute Auto 2.1 10^3/uL (1.2-3.8); Lymphocytes Percent Auto 30.8 % (20.5-60.0); Mean Corpuscular HGB Conc 31.9 g/dL (29.9-35.2); Mean Corpuscular Hemoglobin 28.2 pg (26.7-34.0); Mean Corpuscular Volume 88.2 fL (81.0-99.0); Mean Platelet Volume 10.1 fL (9.5-13.5); Monocytes Absolute Auto 0.5 10^3/uL (0.3-0.8); Monocytes Percent Auto 7.1 % (1.7-12.0); Neutrophils Absolute Auto 3.9 10^3/uL (1.4-6.5); Neutrophils Percent Auto 58.7 % (43.0-75.0); Platelet Count 296 10^3/uL (150-450); Red Blood Count 3.55 10^6/uL (4.20-5.40); Red Cell Distribution Width 13.4 % (11.0-15.0); White Blood Count 6.7 10^3/uL (4.0-11.0)
== END 2024-01-08 14:21 | disposition home or self-care (01) ==
LOC: PST 14:21
PROVIDERS: PCP Nurse Practitioner; Visit Provider Obstetrics & Gynecology
DX: Z01.812 Encounter for preprocedural laboratory examination (principal)
CPT/HCPCS: 85025

== ENCOUNTER 2024-01-17 06:48 | Day surgery (SDC) | payer BC, SELFPAY ==
[2024-01-08 14:32] VITALS: BP 124/86; PULSE 92; TEMP 36.5; O2SAT 98; BMI 39.4
--- OUTSIDE RECORDS SUMMARY | 2024-01-17 06:50 | XMS_ITS ---
Patient Summarization (C-CDA 2.1 CCD) Created on: January 17, 2024 CHRIS GARIBAY~PHOEN[place] PEREZ : 1990 Sex: Female Author Organization Sample organization Care Team Providers Care Fine Unhairer Name Role Phone Alice Tamez Unavailable DIPESH, [...] Provider NO FAMILY, PHYSICIAN Primary Care Unavailable Kim, Jenny Attending Unavailable Kim, Jenny Admitting Unavailable AICHHOLZ KASSANDRA Attending Unavailable AICHHOLZ KASSANDRA Attending Unavailable KIM, EJNNY Attending Unavailable KIM, JENNY Attending Unavailable KIM, JENNY Attending Unavailable KIM, JENNY Attending Unavailable KIM, JENNY Attending Unavailable Encounters Encounter Date Encounter Type Care Provider Facility Start: 01-07-2024 End: 01-07-2024 ambulatory JENNY KIM Not Available Start: 12-23-2023 End: 12-23-2023 ambulatory JENNY KIM Not Available Start: 11-25-2023 End: 11-25-2023 ambulatory JENNY KIM Not Available Start: 11-12-2023 End: 11-12-2023 ambulatory PHYSICIAN NO FAMILY Facility:[facility] Start: 11-12-2023 End: 11-12-2023 Departed Referred PHYSICIAN NO [facility] Path Spec [facility] Start: 11-12-2023 End: 11-12-2023 ambulatory PHYSICIAN NO [facility] Work Phone: Start: 10-14-2023 End: 10-14-2023 ambulatory JENNY ALVAREZ Not Available Start: 10-01-2023 End: 10-01-2023 ambulatory KASSANDRA AICJazminHOLZ Not Available Start: 08-22-2023 End: 08-22-2023 ambulatory KASSANDRA AICHHOLZ Not Available Start: 06-24-2023 End: 06-24-2023 ambulatory Oly Reed Other [facility] Other Start: 06-24-2023 Office outpatient vi sit 15 minutes Olytrent Reed [facility] Start: 06-11-2023 End: 06-11-2023 ambulatory Alice Tamez Other [facility] Other Start: 06-11-2023 Office outpatient vi sit 25 minutes Alice Dashawn [facility] Start: 08-01-2022 End: 08-01-[address] JANET LANDON Facility:[facility] Start: 04-17-2022 Encounter for genera l adult medical examination without abnormal findings DR JANET LANDON [facility] Start: 04-12-2022 End: 04-13-[address] JANET LANDON Facility:[facility] Start: 04-12-2022 End: 04-13-2022 Encounter for general adult medical examination without abnormal findings DR JANET LANDON Facility:[facility] Start: 03-05-2022 End: 03-05-[address] JANET LANDON Facility:[facility] Start: 10-12-2021 End: 10-12-2021 ambulatory Alice Tamez Other [facility] Other Start: 10-12-2021 Office outpatient vi sit [...] 1.5 mg/ml oral solution (2 sources) Uncompetitive E-tydhud-D-aspartat e Receptor Antagonist, Sigma-1 Agonist Start: 06-11-2023 take 10 mL by mouth every eight hours [place] DM 7.5-7.5 MG/5ML 10 mL Orally every [...] Date Payer Category Payer Self-pay 2022 Unknown [id number] 2019 Unknown [id number] 2. [id number] 1990 Unknown [id number] 2.16.84 [id number] 1990 Unknown [id number] 2.16.84 [id number] 1990 Unknown [id number] 2.16.84 [id number] 1990 Unknown [id number] 2.16.84 [id number] 1990 Unknown [id number] 2.16.84 0.1.263261.3.579.2.9 1990 Unknown [id number] 2.16.84 0.1.025759.3.579.2.9 1990 Unknown [id number] 2.16.84 0.1.365859.3.579.2.9 1990 Unknown [id number] 2.16.84 [id number] 1990 Unknown [id number] 2.16.84 0.1.158908.3.579.2.9 1990 Unknown [id number] 2.16.84 [id number] 1958 Self-pay [id number] Unknown [id number] 2.16.84 [id number] Problems Active Problems Problem Classification Problem Date [...] Test Name Value Interpretation Reference Range Facility [facility] 11-12-2023 L Specimen: [id number] Received: 11/13/23 Status: AGNES Brown Num: [id number] Spec Type: Surgical Subm Dr: Jenny Alvarez Tissues: A Endometrium - Biopsy (EMB) Procedures: HE/2, Gross/Micro L4 Age/ Patient Sex Location Account Attending Physician Chris Garibay 33/F LABELL [id number] Jenny Alvarez SPEC NUM: [id number] RECD: 11/13/23 STATUS: AGNES BROWN NUM: [id number] LASHELL: 11/12/23 DR: Jenny Alvarez ENTERED: 11/13/[address] [facility] [address]: Laurie,Lab SPEC TYPE: Surgical DEPT: JEANE [...] in A1. Clinical history: Menorrhagia CPT Codes 86209 Specimen: [id number] Received: 11/13/23 Status: AGNES Brown Num: [id number] Spec Type: Surgical Subm Dr: Jenny Alvarez Tissues: A Endometrium - Biopsy (EMB) Procedures: HE/2, Gross/Micro L4 Patient: Chris Garibay [id number] (Continued) Signed (signature on file) Jazmin Andrews MD 11/14/23 1547 Normal [facility] Quick Strepon 06-24-2023 S. pyogenes Org specific cx Ql (Throat) Negative [facility] Other Quick Strep [facility] Other COVID/FLU/RSV RT-PCRon 06-11 SARS-CoV-2 (COVID-19) RNA NATALIIA+probe Ql (Unsp spec) Negative [facility] Other COVID/FLU/RSV RT-PCR Negative [employer] Lot18 Other CHLAMYDIA/GONOCOCCUS NATALIIA (SW AB/URINE/PAPon 08-03-2022 Chlamydia trachomatis, NATALIIA Negative Normal Negative [facility] Comment on above: Performed By: #### C T/NGNA #### [facility] [address] [place] [address] Dr. Anahy Sarah Neisseria gonorrhoeae, NATALIIA Negative Normal Negative [facility] Comment on above: Performed By: #### C T/NGNA #### [facility] [address] [place] [address] Dr. Anahy Sarah VAGINITIS/VAGINOSIS DNA PROB Omar 08-02-2022 Radha species Positive Abnormal Negative [facility] Comment on above: Performed By: #### V AGINT #### [facility] [address] [place] [address] Dr. Anahy Sarah Gardnerella vaginalis Negative Normal Negative [facility] Comment on above: Performed By: #### V AGINT #### [facility] [address] [place] [address] Dr. Anahy Sarah Trichomonas vaginalis Negative Normal Negative [facility] Comment on above: Performed By: #### V AGINT #### [facility] [address] [place] [address] Dr. Anahy Sarah CBC AUTO DIFFon 04-12-2022 BASO # 0.1 103/ul Normal 0.0-0.1 [facility] Comment on above: Performed By: #### C BC #### [facility] [address] [place] [address] Dr. Anahy Sarah Basophils/100 WBC (Bld) 0.9 % Normal 0.2-2.0 [facility] Comment on above: Performed By: #### C BC #### [facility] [address] [place] [address] Dr. Anahy Sarah EO # 0.1 103/ul Normal 0.0-0.7 [facility] Comment on above: Performed By: #### C BC #### [facility] [address] [place] [address] Dr. Anahy Sarah Eosinophils/100 WBC (Bld) 1.3 % Normal 0.9-7.0 [facility] Comment on above: Performed By: #### C BC #### [facility] [address] [place] [address] Dr. Anahy Sarah Erythrocyte distribution width (RBC) [Ratio] 12.6 % Normal 11.0-15.0 [facility] Comment on above: Performed By: #### C BC #### [facility] [address] [place] [address] Dr. Anahy Sarah Hematocrit (Bld) [Volume fraction] 35.5 % Critically low 36.0-48.0 [facility] Comment on above: Performed By: #### C BC #### [facility] [address] [place] [address] Dr. Anahy Sarah Hemoglobin (Bld) [Mass/Vol] 11.5 g/dL Critically low 12.0-16.0 [facility] Comment on above: Performed By: #### C BC #### [facility] [address] [place] [address] Dr. Anahy Sarah IG # 0.02 10e3/ul Normal 0.00-0.03 [facility] Comment on above: Performed By: #### C BC #### [facility] [address] [place] [address] Dr. Anahy Sarah IG % 0.2 % Normal 0.0-0.5 [facility] Comment on above: Performed By: #### C BC #### [facility] [address] [place] [address] Dr. Anahy Sarah LYMPH # 2.5 103/ul Normal 1.2-3.8 [facility] Comment on above: Performed By: #### C BC #### [facility] [address] [place] [address] Dr. Anahy Sarah Lymphocytes/100 WBC (Bld) 26.3 % Normal 20.5-60.0 [facility] Comment on above: Performed By: #### C BC #### [facility] [address] [place] [address] Dr. Anahy Sarah MANUAL DIFF REQ NO Normal [facility] Comment on above: Performed By: #### C BC #### [facility] [address] [place] [address] Dr. Anahy Sarah MCH (RBC) [Entitic mass] 28.8 pg Normal 26.7-34.0 [facility] Comment on above: Performed By: #### C BC #### [facility] [address] [place] [address] Dr. Anahy Sarah MCHC (RBC) [Mass/Vol] 32.4 g/dL Normal 29.9-35.2 [facility] Comment on above: Performed By: #### C BC #### [facility] [address] [place] [address] Dr. Anahy Sarah MCV (RBC) [Entitic vol] 88.8 fL Normal 81.0-99.0 [facility] Comment on above: Performed By: #### C BC #### [facility] [address] [place] [address] Dr. Anahy Sarah MONO # 0.7 103/ul Normal 0.3-0.8 [facility] Comment on above: Performed By: #### C BC #### [facility] [address] [place] [address] Dr. Anahy Sarah Monocytes/100 WBC (Bld) 7.1 % Normal 1.7-12.0 [facility] Comment on above: Performed By: #### C BC #### [facility] [address] [place] [address] Dr. Anahy Sarah NEUT # 6.0 103/ul Normal 1.4-6.5 [facility] Comment on above: Performed By: #### C BC #### [facility] [address] [place] [address] Dr. Anahy Sarah Neutrophils/100 WBC (Bld) 64.2 % Normal 43.0-75.0 [facility] Comment on above: Performed By: #### C BC #### [facility] [address] [place] [address] Dr. Anahy Sarah Platelet mean volume (Bld) [Entitic vol] 10.1 fL Normal 9.5-13.5 [facility] Comment on above: Performed By: #### C BC #### [facility] [address] [place] [address] Dr. Anahy Sarah PLT 287 103/ul Normal 150-450 [facility] Comment on above: Performed By: #### C BC #### [facility] [address] [place] [address] Dr. Anahy Sarah RBC 4.00 106/ul Critically low 4.20-5.40 [facility] Comment on above: Performed By: #### C BC #### [facility] [address] [place] [address] Dr. Anahy Sarah WBC 9.4 103/ul Normal 4.0-11.0 [facility] Comment on above: Performed By: #### C BC #### [facility] [address] [place] [address] Dr. Anahy Sarah GLYCOHEMOGLOBIN A1Con 2021 ADA RECOMMENDATION SEE BELOW Normal [facility] Comment on above: Result Comment: ADA RECOMMENDED LIMIT 4.0 - 6.0 ADA THERAPEUTIC TARGET < 7.0 ACTION SUGGESTED > 7.0 Performed By: #### A 1C #### [facility] [address] [place] [address] Dr. Anahy Sarah Glucose [Mass/Vol] 111 mg/dL Normal The [facility] Comment on above: Performed By: #### A 1C #### [facility] [address] [place] [address] Dr. Anahy Sarah HbA1c (Bld) [Mass fraction] 5.5 % Normal 4.5-6.2 [facility] Comment on above: Performed By: #### A 1C #### [facility] [address] [place] [address] Dr. Anahy Sarah LIPID PROFILEon 04-12-2022 CHOL-HDL RATIO NORM SEE BELOW Normal [facility] Comment on above: Result Comment: 3.3 - 4.4 LOW RISK 4.4 - 7.1 AVERAGE RISK 7.1 - 11.0 MODERATE RISK >11.0 HIGH RISK Performed By: #### C MP, LIPID #### [facility] [address] [address] [address] Anahy Sarah Cholesterol [Mass/Vol] 168 mg/dL Normal <=200 [facility] Comment on above: Performed By: #### C MP, LIPID #### [facility] [address] [address] [address] Anahy Sarah Cholesterol in HDL [Mass/Vol] 47 mg/dL Normal 40-60 [facility] Comment on above: Performed By: #### C MP, LIPID #### [facility] [address] [address] [address] Anahy Sarah Cholesterol in LDL [Mass/Vol] 81.8 mg/dL Normal [facility] Comment on above: Performed By: #### C MP, LIPID #### [facility] [address] [place] [address] Dr. Anahy Sarah Cholesterol.total/Ch olesterol in HDL [Mass ratio] 3.6 {ratio} Normal [facility] Comment on above: Performed By: #### C MP, LIPID #### [facility] [address] [address] [address] Anahy Sarah HDL NORMAL > or = 60 mg/dl - LOW CARDIOVASCULAR RISK <40 mg/dl - HIGH CARDIOVASCULAR RISK Normal [facility] Comment on above: Performed By: #### C MP, LIPID #### [facility] [address] [address] [address] Anahy Sarah LDL CALC NORMAL SEE BELOW Normal [facility] Comment on above: Result Comment: <100 mg/dl OPTIMAL 100 - 129 mg/dl NEAR OR ABOVE OPTIMAL 130 - 159 mg/dl BORDERLINE HIGH 160 - 189 mg/dl HIGH >190 mg/dl VERY HIGH Performed By: #### C MP, LIPID #### [facility] [address] [place] [address] Dr. Anahy Sarah Triglyceride [Mass/Vol] 196 mg/dL Critically high <=150 [facility] Comment on above: Performed By: #### C MP, LIPID #### [facility] [address] [place] [address] Dr. Anahy Sarah VLDL CALC 39.2 mg/dL Normal [facility] Comment on above: Performed By: #### C MP, LIPID #### [facility] [address] [place] [address] Dr. Anahy Sarah PROF 14(COMP METB)on 022 Albumin [Mass/Vol] 3.5 g/dL Normal 3.4-5.0 [facility] Comment on above: Performed By: #### C MP, LIPID #### [facility] [address] [place] [address] Dr. Anahy Sarah Albumin/Globulin [Mass ratio] 0.9 {ratio} Normal [facility] Comment on above: Performed By: #### C MP, LIPID #### [facility] [address] [place] [address] Dr. Anahy Sarah ALP [Catalytic activity/Vol] 54 U/L Normal 46-116 [facility] Comment on above: Performed By: #### C MP, LIPID #### [facility] [address] [place] [address] Dr. Anahy Sarah ALT [Catalytic activity/Vol] 21 U/L Normal 14-59 [facility] Comment on above: Performed By: #### C MP, LIPID #### [facility] [address] [place] [address] Dr. Anahy Sarah Anion gap [Moles/Vol] 13.3 mmol/L Normal [facility] Comment on above: Performed By: #### C MP, LIPID #### [facility] [address] [place] [address] Dr. Anahy Sarah AST [Catalytic activity/Vol] 14 U/L Critically low 15-37 [facility] Comment on above: Performed By: #### C MP, LIPID #### [facility] [address] [place] [address] Dr. Anahy Sarah Bilirubin [Mass/Vol] 0.4 mg/dL Normal 0.2-1.0 [facility] Comment on above: Performed By: #### C MP, LIPID #### [facility] [address] [place], [place] [id number] Dr. Anahy Sarah Calcium [Mass/Vol] 8.5 mg/dL Normal 8.5-10.1 [facility] Comment on above: Performed By: #### C MP, LIPID #### [facility] [address] [place] [address] Dr. Anahy Sarah Chloride [Moles/Vol] 105 mmol/L Normal 98-107 [facility] Comment on above: Performed By: #### C MP, LIPID #### [facility] [address] [place] [address] Dr. Anahy Sarah CO2 [Moles/Vol] 23.4 mmol/L Normal 21.0-32.0 [facility] Comment on above: Performed By: #### C MP, LIPID #### [facility] [address] [place] [address] Dr. Anahy Sarah Creatinine [Mass/Vol] 0.74 mg/dL Normal 0.55-1.02 [facility] Comment on above: Performed By: #### C MP, LIPID #### [facility] [address] [place] [address] Dr. Anahy Sarah EGFR-AF MICRONESIAN >60 Normal >=60 [facility] Comment on above: Performed By: #### C MP, LIPID #### [facility] [address] [place] [address] Dr. Anahy Sarah EGFR-NON AF MICRONESIAN >60 Normal >=60 [facility] Comment on above: Performed By: #### C MP, LIPID #### [facility] [address] [place] [address] Dr. Anahy Sarah Globulin (S) [Mass/Vol] 3.7 g/dL Normal [facility] Comment on above: Performed By: #### C MP, LIPID #### [facility] [address] [place] [address] Dr. Anahy Sarah Glucose [Mass/Vol] 96 mg/dL Normal 74-106 [facility] Comment on above: Performed By: #### C MP, LIPID #### [facility] [address] [place] [address] Dr. Anahy Sarah Potassium [Moles/Vol] 3.7 mmol/L Normal 3.5-5.1 [facility] Comment on above: Performed By: #### C MP, LIPID #### [facility] [address] [address] [address] Anahy Sarah Protein [Mass/Vol] 7.2 g/dL Normal 6.4-8.2 [facility] Comment on above: Performed By: #### C MP, LIPID #### [facility] [address] [address] [address] Anahy Sarah Sodium [Moles/Vol] 138 mmol/L Normal 136-145 [facility] Comment on above: Performed By: #### C MP, LIPID #### [facility] [address] [address] [address] Anahy Sarah Urea nitrogen [Mass/Vol] 6.0 mg/dL Critically low 7.0-18.0 [facility] Comment on above: Performed By: #### C MP, LIPID #### [facility] [address] [place] [address] Dr. Anahy Sarah Urea nitrogen/Creatinine [Mass ratio] 8.1 mg/mg Normal [facility] Comment on above: Performed By: #### C MP, LIPID #### [facility] [address] [place] [address] Dr. Anahy Sarah PAP ACOG PANEL 2: 30 to 65on 03-09-2022 . . Normal [facility] Comment on above: Result Comment: Perf ormed at: WB Performed By: #### [id number] #### [facility] [address] [place] [address] Dr. Anahy Sarah Age Gdln ACOG Testing 30-65 [facility] Comment on above: Performed By: #### [id number] #### [facility] [address] [place] [address] Dr. Anahy Sarah DIAGNOSIS: Comment Normal [facility] Comment on above: Result Comment: NEGA TIVE FOR INTRAEPITHELIAL LESION OR MALIGNANCY. Performed at: WB Performed By: #### [id number] #### [facility] [address] [place] [address] Dr. Anahy Sarah HPV Aptima Negative Normal Negative [facility] Comment on above: Result Comment: This nucleic acid amplification test detects fourteen high-risk HPV types (16,18,31,33,35,39,45,51,52,56,58,59,66,68) without differentiation. Performed at: =G Performed By: #### [id number] #### [facility] [address] [place] [address] Dr. Anahy Sarah Methodology: Comment Normal [facility] Comment on above: Result Comment: This liquid based ThinPrep(R) pap test was screened with the use of an image guided system. Performed at: WB Performed By: #### [id number] #### [facility] [address] [place] [address] Dr. Anahy Sarah Note: Comment Normal [facility] Comment on above: Result Comment: The Pap smear is a screening test designed to aid in the detection of premalignant and malignant conditions of the uterine cervix. It is not a diagnostic procedure and should not be used as the sole means of detecting cervical cancer. Both false-positive and false-negative reports do occur. . Performed at: WB Performed By: #### [id number] #### [facility] [address] [place] [address] Dr. Anahy Sarah Performed by: Comment Normal [facility] Comment on above: Result Comment: Nayla Garcia, Radio Interference Trouble Shooter (ASCP) Performed at: WB Performed By: #### [id number] #### [facility] [address] [place] [address] Dr. Anahy Sarah Specimen adequacy: Comment Normal [facility] Comment on above: Result Comment: Sati sfactory for evaluation. Endocervical and/or squamous metaplastic cells (endocervical component) are present. Performed at: WB Performed By: #### [id number] #### [facility] [address] [place] [address] Dr. Anahy Sarah COVID Quick Testingon 2021 Result Negative [facility] Other Quick Fluon 10-12-2021 FLUAV Ab CF (S) [Titer] Negative [facility] Other FLUBV Ab CF (S) [Titer] Negative [facility] Other S. pyogenes Ag Ql (Throat)on 10-12-2021 S. pyogenes Org specific cx Ql (Throat) Positive [facility] Other Social History Date Type Detail Facility Start: 11-13-2023 Tobacco smoking status NHIS Never smoked tobacco (finding) [facility] Start: 1990 Sex Assigned At Female [facility] Unknown if ever smoked [facility] Other Sex Assigned At Sex Assigned At Bir th [facility] Other Vital Signs Date Time Vital Sign Value Performing Clinician Facility 06-24-2023 11:15-0500 Body height 167.64 cm Oly Brianna Other [facility] Other 06-24-2023 11:15-0500 Body mass index (BMI) [Ratio] 38.73 kg/m2 Oly Brianna Other [facility] Other 06-24-2023 11:15-0500 Body temperature 99.8 [degF] Oyl Cervantesmond Other [facility] Other 06-24-2023 11:15-0500 Body weight 108.86 kg Oly Brianna Other [facility] Other 06-24-2023 11:15-0500 Respiratory rate 19 /min Oly Brianna Other [facility] Other 06-24-2023 11:15-0500 SaO2% (BldA) [Mass fraction] 98 % Oly Brianna Other [facility] Other 06-11-2023 12:20-0500 Body height 167.64 cm Alice Tamez Other [facility] Other 06-11-2023 12:20-0500 Body mass index (BMI) [Ratio] 39.25 kg/m2 Alice Tamez Other [facility] Other 06-11-2023 12:20-0500 Body temperature 98.4 [degF] Alice Tamez Other [facility] Other 06-11-2023 12:20-0500 Body weight 110.32 kg Alice Tamez Other [facility] Other 06-11-2023 12:20-0500 Diastolic blood pressure 93 mm[Hg] Alice Tamez Other [facility] Other 06-11-2023 12:20-0500 Respiratory rate 18 /min Alice Tamez Other [facility] Other 06-11-2023 12:20-0500 SaO2% (BldA) [Mass fraction] 97 % Alice Tamez Other [facility] Other 06-11-2023 12:20-0500 Systolic blood pressure 144 mm[Hg] Alice Tamez Other [facility] Other 10-12-2021 10:20-0400 Body height 167.64 cm Alice Tamez Other [facility] Other 10-12-2021 10:20-0400 Body mass index (BMI) [Ratio] 38.73 kg/m2 Alice Tamez Other [facility] Other 10-12-2021 10:20-0400 Body temperature 98.3 [degF] Alice Tamez Other [facility] Other 10-12-2021 10:20-0400 Body weight 108.86 kg Alice Tamez Other [facility] Other 10-12-2021 10:20-0400 Respiratory rate 18 /min Alice Tamez Other [facility] Other 10-12-2021 10:20-0400 SaO2% (BldA) [Mass fraction] 97 % Alice Tamez Other [facility] Other Evaluation note 06-24-2023 Note Date & [...] no improvement in 2 to 3 days [facility] Other Evaluation note 06-11-2023 Note Date & [...] and rest, Tylenol as directed, rx of [place] and prednisone, OTC Flonase, cool mist humidifier, [...] treatment plan. Patient left in stable condition [facility] Other Evaluation note 10-12-2021 Note Date & [...] Patient care instructions given in writting by [facility] At Home document [facility] Other Evaluation note Note Date & Type Note Facility Evaluation note No assessment information availa [facility] Work Phone: History general Narrative - Reported Note Date & Type Note Facility History general Narrative - Reported Type Medical History asthma Surgical History cyst removal 2004 Hospitalization History See Above Hospitalization History covid 2020 [facility] Other Summary Purpose Family History No Family [...] CREATED AUTHOR AUTHOR'S ORGANIZ ATION 11/15/2023 [facility] DATE CREATED AUTHOR AUTHOR'S ORGANIZ ATION 01/09/2024 [facility] EPIC Care Teams (unrecognized sec tion and content) Team Status: Active Member Role Status Dates PHYSICIAN NO FAMILY Primary Care Provider Active Team Status: Inactive Member Role Status Dates PHYSICIAN NO FAMILY Primary Care Provider Active Start: November 12, 2023 End: November 12, 2023 Jenny Alvarez Attending Provider Active Start: [facility] 2023 End: November 12, 2023 Goals (unrecognized [...] BE BASED ON THE PRIMARY CLINICAL RECORDS. [employer] provides no warranty or guarantee of the accuracy or completeness of information in this document.
[2024-01-17 06:59] LABS: Basophils Percent Auto 0.1 % (0.2-2.0); Hematocrit 35.2 % (36.0-48.0); Hemoglobin 11.1 g/dL (12.0-16.0); Immature Granulocytes Abs Auto 0.05 10^3/uL (0.00-0.03); Immature Granulocytes Pct Auto 0.3 % (0.0-0.5); Lymphocytes Absolute Auto 1.6 10^3/uL (1.2-3.8); Lymphocytes Percent Auto 10.8 % (20.5-60.0); Mean Corpuscular HGB Conc 31.5 g/dL (29.9-35.2); Mean Corpuscular Hemoglobin 28.3 pg (26.7-34.0); Mean Corpuscular Volume 89.8 fL (81.0-99.0); Mean Platelet Volume 10.5 fL (9.5-13.5); Monocytes Absolute Auto 0.3 10^3/uL (0.3-0.8); Monocytes Percent Auto 2.1 % (1.7-12.0); Neutrophils Absolute Auto 12.9 10^3/uL (1.4-6.5); Neutrophils Percent Auto 86.7 % (43.0-75.0); Platelet Count 341 10^3/uL (150-450); Red Blood Count 3.92 10^6/uL (4.20-5.40); Red Cell Distribution Width 14.5 % (11.0-15.0); White Blood Count 14.9 10^3/uL (4.0-11.0)
[2024-01-17 07:00] VITALS: BP 149/93; PULSE 92; TEMP 36.2; O2SAT 95; BMI 40.0
[2024-01-17 07:17] LABS: Glucometer 118 mg/dL (74-106)
[2024-01-17 07:19] LABS: HCG Quantitative 2 mIU/mL
[2024-01-17] MEDS: LACTATED RINGER'S SOLUTION 1,000 ML 50 ML IV (07:28)
--- NOTE | 2024-01-27 13:52 | PC.NURSE ---
Addendum entered by Amy Solis 01/27/24 13:55: 01/17/2024 Original Note: pt cancelled per due to pts elevated WBC. spoke with pt and explained the risks of proceeding due to elevated WBC count, pt voices understanding. pt to be reschedule at a later date.
== END 2024-01-17 12:00 | disposition home or self-care (01) ==
PROVIDERS: PCP Nurse Practitioner; Visit Provider Obstetrics & Gynecology
DX: R93.89 Abnormal findings on diagnostic imaging of other specified body structures (principal); Z53.8 Procedure and treatment not carried out for other reasons; D25.9 Leiomyoma of uterus, unspecified; N92.1 Excessive and frequent menstruation with irregular cycle
CPT/HCPCS: 49320; 36415; 82948; 84702; 85025

== ENCOUNTER 2024-01-22 05:25 | Outpatient (OUT) | payer BC, SELFPAY ==
--- OUTSIDE RECORDS SUMMARY | 2024-01-22 05:28 | XMS_ITS | CCD ---
Author Organization [facility] Care Team Providers Care Makeup Instructor Name Role Phone Alice Tamez Unavailable DIPESH, [...] 1.5 mg/ml oral solution (2 sources) Uncompetitive I-kncgiq-N-aspartat e Receptor Antagonist, Sigma-1 Agonist Start: 06-11-2023 take 10 mL by mouth every eight hours Sumrall DM 7.5-7.5 MG/5ML 10 mL Orally every [...] Name Value Interpretation Reference Range Facility [facility] 11-12-2023 L Specimen: [id number] Received: 11/13/23 Status: AGNES Reelaine Num: [id number] Spec Type: Surgical Subm Dr: Jenny Alvarez Tissues: A Endometrium - Biopsy (EMB) Procedures: HE/2, Gross/Micro L4 Age/ Patient Sex Location Account Attending Physician Chris Garibay 33/F LABELL [id number] Jenny Alvarez SPEC NUM: [id number] RECD: 11/13/23 STATUS: AGNES BROWN NUM: [id number] LASHELL: 11/12/23- SUBM DR: Jenny Alvarez ENTERED: 11/13/23 [facility] DR: Laurie,Lab SPEC TYPE: Surgical DEPT: JEANE [...] in A1. Clinical history: Menorrhagia CPT Codes 30362 Specimen: [id number] Received: 11/13/23 Status: AGNES Brown Num: [id number] Spec Type: Surgical Subm Dr: Jenny Alvarez Tissues: A Endometrium - Biopsy (EMB) Procedures: Felicia ADDISON/Amanda L4 Patient: Chris Garibay [id number] (Continued) Signed (signature on file) Jazmin Andrews MD 11/14/23 1547 Normal [facility] Quick Strepon 06-24-2023 S. pyogenes Org specific cx Ql (Throat) Negative [facility] Other Quick Strep [facility] Other COVID/FLU/RSV RT-PCRon 06-11 SARS-CoV-2 (COVID-19) RNA NATALIIA+probe Ql (Unsp spec) Negative [facility] Other COVID/FLU/RSV RT-PCR Negative [facility] Other CHLAMYDIA/GONOCOCCUS NATALIIA (SW AB/URINE/PAPon 08-03-2022 Chlamydia trachomatis, NATALIIA Negative Normal Negative [facility] Comment on above: Performed By: #### C T/NGNA #### [facility] [address] [place] [address] Dr. Anahy Sarah Neisseria gonorrhoeae, NATALIIA Negative Normal Negative [facility] Comment on above: Performed By: #### C T/NGNA #### [facility] [address] [place] [address] Dr. Anahy Sarah VAGINITIS/VAGINOSIS DNA PROB Omar 08-02-2022 Radha species Positive Abnormal Negative [facility] Comment on above: Performed By: #### V AGINT #### [facility] [address] [place] [address] Dr. Anahy Sarah Gardnerella vaginalis Negative Normal Negative [facility] Comment on above: Performed By: #### V AGINT #### [facility] [address] [place] [address] Dr. Anahy Sarah Trichomonas vaginalis Negative Normal Negative [facility] Comment on above: Performed By: #### V AGINT #### [facility] [address] [place] [address] Dr. Anahy Sarah CBC AUTO DIFFon 04-12-2022 BASO # 0.1 103/ul Normal 0.0-0.1 [facility] Comment on above: Performed By: #### C BC #### [facility] [address] [place] [address] Dr. Anahy Sarah Basophils/100 WBC (Bld) 0.9 % Normal 0.2-2.0 [facility] Comment on above: Performed By: #### C BC #### [facility] [address] [place] [address] Dr. Anahy Sarah EO # 0.1 103/ul Normal 0.0-0.7 [facility] Comment on above: Performed By: #### C BC #### [facility] [address] [place] [address] Dr. Anahy Sarah Eosinophils/100 WBC (Bld) 1.3 % Normal 0.9-7.0 [facility] Comment on above: Performed By: #### C BC #### [facility] [address] [place] [address] Dr. Anahy Sarah Erythrocyte distribution width (RBC) [Ratio] 12.6 % Normal 11.0-15.0 [facility] Comment on above: Performed By: #### C BC #### [facility] [address] [place] [address] Dr. Anahy Sarah Hematocrit (Bld) [Volume fraction] 35.5 % Critically low 36.0-48.0 [facility] Comment on above: Performed By: #### C BC #### [facility] [address] [place] [address] Dr. Anahy Sarah Hemoglobin (Bld) [Mass/Vol] 11.5 g/dL Critically low 12.0-16.0 [facility] Comment on above: Performed By: #### C BC #### [facility] [address] [place] [address] Dr. Anahy Sarah IG # 0.02 10e3/ul Normal 0.00-0.03 [facility] Comment on above: Performed By: #### C BC #### [facility] [address] [place] [address] Dr. Anahy Sarah IG % 0.2 % Normal 0.0-0.5 [facility] Comment on above: Performed By: #### C BC #### [facility] [address] [place] [address] Dr. Anahy Sarah LYMPH # 2.5 103/ul Normal 1.2-3.8 [facility] Comment on above: Performed By: #### C BC #### [facility] [address] [place] [address] Dr. Anahy Sarah Lymphocytes/100 WBC (Bld) 26.3 % Normal 20.5-60.0 [facility] Comment on above: Performed By: #### C BC #### [facility] [address] [place] [address] Dr. Anahy Sarah MANUAL DIFF REQ NO Normal [facility] Comment on above: Performed By: #### C BC #### [facility] [address] [address] [address] Anahy Sarah MCH (RBC) [Entitic mass] 28.8 pg Normal 26.7-34.0 [facility] Comment on above: Performed By: #### C BC #### [facility] [address] [address] [address] Anahy Sarah MCHC (RBC) [Mass/Vol] 32.4 g/dL Normal 29.9-35.2 [facility] Comment on above: Performed By: #### C BC #### [facility] [address] [place] [address] Dr. Anahy Sarah MCV (RBC) [Entitic vol] 88.8 fL Normal 81.0-99.0 [facility] Comment on above: Performed By: #### C BC #### [facility] [address] [place] [address] Dr. Anahy Sarah MONO # 0.7 103/ul Normal 0.3-0.8 [facility] Comment on above: Performed By: #### C BC #### [facility] [address] [place] [address] Dr. Anahy Sarah Monocytes/100 WBC (Bld) 7.1 % Normal 1.7-12.0 [facility] Comment on above: Performed By: #### C BC #### [facility] [address] [place] [address] Dr. Anahy Sarah NEUT # 6.0 103/ul Normal 1.4-6.5 [facility] Comment on above: Performed By: #### C BC #### [facility] [address] [place] [address] Dr. Anahy Sarah Neutrophils/100 WBC (Bld) 64.2 % Normal 43.0-75.0 [facility] Comment on above: Performed By: #### C BC #### [facility] [address] [place] [address] Dr. Anahy Sarah Platelet mean volume (Bld) [Entitic vol] 10.1 fL Normal 9.5-13.5 [facility] Comment on above: Performed By: #### C BC #### [facility] [address] [address] [address] Anahy Sarah PLT 287 103/ul Normal 150-450 [facility] Comment on above: Performed By: #### C BC #### [facility] [address] [address] [address] Anahy Sarah RBC 4.00 106/ul Critically low 4.20-5.40 [facility] Comment on above: Performed By: #### C BC #### [facility] [address] [address] [address] Anahy Sarah WBC 9.4 103/ul Normal 4.0-11.0 [facility] Comment on above: Performed By: #### C BC #### [facility] [address] [address] [address] Anahy Sarah GLYCOHEMOGLOBIN A1Con 2021 ADA RECOMMENDATION SEE BELOW Normal [facility] Comment on above: Result Comment: ADA RECOMMENDED LIMIT 4.0 - 6.0 ADA THERAPEUTIC TARGET < 7.0 ACTION SUGGESTED > 7.0 Performed By: #### A 1C #### [facility] [address] [address] [address] Anahy Sarah Glucose [Mass/Vol] 111 mg/dL Normal [facility] Comment on above: Performed By: #### A 1C #### [facility] [address] [address] [address] Anahy Sarah HbA1c (Bld) [Mass fraction] 5.5 % Normal 4.5-6.2 [facility] Comment on above: Performed By: #### A 1C #### [facility] [address] [address] [address] Anahy Sarah LIPID PROFILEon 04-12-2022 CHOL-HDL RATIO NORM SEE BELOW Normal [facility] Comment on above: Result Comment: 3.3 - 4.4 LOW RISK 4.4 - 7.1 AVERAGE RISK 7.1 - 11.0 MODERATE RISK >11.0 HIGH RISK Performed By: #### C MP, LIPID #### [facility] [address] [address] [address] Anahy Sarah Cholesterol [Mass/Vol] 168 mg/dL Normal <=200 [facility] Comment on above: Performed By: #### C MP, LIPID #### [facility] [address] [address] [address] Anahy Sarah Cholesterol in HDL [Mass/Vol] 47 mg/dL Normal 40-60 [facility] Comment on above: Performed By: #### C MP, LIPID #### [facility] [address] [address] [address] Anahy Sarah Cholesterol in LDL [Mass/Vol] 81.8 mg/dL Normal [facility] Comment on above: Performed By: #### C MP, LIPID #### [facility] [address] [address] [address] Anahy Sarah Cholesterol.total/Ch olesterol in HDL [Mass ratio] 3.6 {ratio} Normal [facility] Comment on above: Performed By: #### C MP, LIPID #### [facility] [address] [address] [address] Anahy Sarah HDL NORMAL > or = 60 mg/dl - LOW CARDIOVASCULAR RISK <40 mg/dl - HIGH CARDIOVASCULAR RISK Normal [facility] Comment on above: Performed By: #### C MP, LIPID #### [facility] [address] [address] [address] Anahy Sarah LDL CALC NORMAL SEE BELOW Normal [facility] Comment on above: Result Comment: <100 mg/dl OPTIMAL 100 - 129 mg/dl NEAR OR ABOVE OPTIMAL 130 - 159 mg/dl BORDERLINE HIGH 160 - 189 mg/dl HIGH >190 mg/dl VERY HIGH Performed By: #### C MP, LIPID #### [facility] [address] [address] [address] Anahy Sarah Triglyceride [Mass/Vol] 196 mg/dL Critically high <=150 [facility] Comment on above: Performed By: #### C MP, LIPID #### [facility] [address] [address] [address] Anahy Sarah VLDL CALC 39.2 mg/dL Normal [facility] Comment on above: Performed By: #### C MP, LIPID #### [facility] [address] [address] [address] Anahy Sarah PROF 14(COMP METB)on 022 Albumin [Mass/Vol] 3.5 g/dL Normal 3.4-5.0 [facility] Comment on above: Performed By: #### C MP, LIPID #### [facility] [address] [place] [address] Dr. Anahy Sarah Albumin/Globulin [Mass ratio] 0.9 {ratio} Normal [facility] Comment on above: Performed By: #### C MP, LIPID #### [facility] [address] [place] [address] Dr. Anahy Sarah ALP [Catalytic activity/Vol] 54 U/L Normal 46-116 [facility] Comment on above: Performed By: #### C MP, LIPID #### [facility] [address] [place] [address] Dr. Anahy Sarah ALT [Catalytic activity/Vol] 21 U/L Normal 14-59 [facility] Comment on above: Performed By: #### C MP, LIPID #### [facility] [address] [place] [address] Dr. Aanhy Sarah Anion gap [Moles/Vol] 13.3 mmol/L Normal [facility] Comment on above: Performed By: #### C MP, LIPID #### [facility] [address] [place] [address] Dr. Anahy Sarah AST [Catalytic activity/Vol] 14 U/L Critically low 15-37 [facility] Comment on above: Performed By: #### C MP, LIPID #### [facility] [address] [place] [address] Dr. Anahy Sarah Bilirubin [Mass/Vol] 0.4 mg/dL Normal 0.2-1.0 [facility] Comment on above: Performed By: #### C MP, LIPID #### [facility] [address] [place] [address] Dr. Anahy Sarah Calcium [Mass/Vol] 8.5 mg/dL Normal 8.5-10.1 [facility] Comment on above: Performed By: #### C MP, LIPID #### [facility] [address] [place] [address] Dr. Anahy Sarah Chloride [Moles/Vol] 105 mmol/L Normal 98-107 [facility] Comment on above: Performed By: #### C MP, LIPID #### [facility] [address] [address] [address] Anahy Sarah CO2 [Moles/Vol] 23.4 mmol/L Normal 21.0-32.0 [facility] Comment on above: Performed By: #### C MP, LIPID #### [facility] [address] [place] [address] Dr. Anahy Sarah Creatinine [Mass/Vol] 0.74 mg/dL Normal 0.55-1.02 [facility] Comment on above: Performed By: #### C MP, LIPID #### [facility] [address] [place] [address] Dr. Anahy Sarah EGFR-AF TUVALUAN >60 Normal >=60 [facility] Comment on above: Performed By: #### C MP, LIPID #### [facility] [address] [place] [address] Dr. Anahy Sarah EGFR-NON AF TUVALUAN >60 Normal >=60 [facility] Comment on above: Performed By: #### C MP, LIPID #### [facility] [address] [place] [address] Dr. Anahy Sarah Globulin (S) [Mass/Vol] 3.7 g/dL Normal [facility] Comment on above: Performed By: #### C MP, LIPID #### [facility] [address] [place] [address] Dr. Anahy Sarah Glucose [Mass/Vol] 96 mg/dL Normal 74-106 [facility] Comment on above: Performed By: #### C MP, LIPID #### [facility] [address] [place] [address] Dr. Anahy Sarah Potassium [Moles/Vol] 3.7 mmol/L Normal 3.5-5.1 [facility] Comment on above: Performed By: #### C MP, LIPID #### [facility] [address] [address] [address] Anahy Sarah Protein [Mass/Vol] 7.2 g/dL Normal 6.4-8.2 [facility] Comment on above: Performed By: #### C MP, LIPID #### [facility] [address] [address] [address] Anahy Sarah Sodium [Moles/Vol] 138 mmol/L Normal 136-145 [facility] Comment on above: Performed By: #### C MP, LIPID #### [facility] [address] [address] [address] Anahy Sarah Urea nitrogen [Mass/Vol] 6.0 mg/dL Critically low 7.0-18.0 [facility] Comment on above: Performed By: #### C MP, LIPID #### [facility] [address] [address] [address] Anahy Sarah Urea nitrogen/Creatinine [Mass ratio] 8.1 mg/mg Normal [facility] Comment on above: Performed By: #### C MP, LIPID #### [facility] [address] [address] [address] Anahy Sarah PAP ACOG PANEL 2: 30 to 65on 03-09-2022 . . Normal [facility] Comment on above: Result Comment: Perf ormed at: WB Performed By: #### [id number] #### [facility] [address] [address] [address] Anahy Sarah Age Gdln ACOG Testing 30-65 Normal [facility] Comment on above: Performed By: #### [id number] #### [facility] [address] [address] [address] Anahy Sarah DIAGNOSIS: Comment Normal [facility] Comment on above: Result Comment: NEGA TIVE FOR INTRAEPITHELIAL LESION OR MALIGNANCY. Performed at: WB Performed By: #### [id number] #### [facility] [address] [address] [address] Anahy Sarah HPV Aptima Negative Normal Negative [facility] Comment on above: Result Comment: This nucleic acid amplification test detects fourteen high-risk HPV types (16,18,31,33,35,39,45,51,52,56,58,59,66,68) without differentiation. Performed at: =G Performed By: #### [id number] #### [facility] [address] [place] [address] Dr. Anahy Sarah Methodology: Comment Normal [facility] Comment on above: Result Comment: This liquid based ThinPrep(R) pap test was screened with the use of an image guided system. Performed at: WB Performed By: #### [id number] #### [facility] [address] [place] [address] Dr. Anahy Sarah Note: Comment Normal [facility] Comment on above: Result Comment: The Pap smear is a screening test designed to aid in the detection of premalignant and malignant conditions of the uterine cervix. It is not a diagnostic procedure and should not be used as the sole means of detecting cervical cancer. Both false-positive and false-negative reports do occur. . Performed at: WB Performed By: #### [id number] #### [facility] [address] [place] [address] Dr. Anahy Sarah Performed by: Comment Normal [facility] Comment on above: Result Comment: Nayla Garcia, Lien Searcher (ASCP) Performed at: WB Performed By: #### [id number] #### [facility] [address] [place] [address] Dr. Anahy Sarah Specimen adequacy: Comment Normal [facility] Comment on above: Result Comment: Sati sfactory for evaluation. Endocervical and/or squamous metaplastic cells (endocervical component) are present. Performed at: WB Performed By: #### [id number] #### [facility] [address] [place] [address] Dr. Anahy Sarah COVID Quick Testingon 2021 Result Negative [facility] Other Quick Fluon 10-12-2021 FLUAV Ab CF (S) [Titer] Negative [facility] Other FLUBV Ab CF (S) [Titer] Negative [facility] Other S. pyogenes Ag Ql (Throat)on 10-12-2021 S. pyogenes Org specific cx Ql (Throat) Positive [facility] Other Vital Signs Date Time Vital Sign Value Performing Clinician Facility 06-24-2023 11:15-0500 Body height 167.64 cm Oly Reed Other [facility] Other 06-24-2023 11:15-0500 Body mass index (BMI) [Ratio] 38.73 kg/m2 Oly Reed Other [facility] Other 06-24-2023 11:15-0500 Body temperature 99.8 [degF] Oly Reed Other [facility] Other 06-24-2023 11:15-0500 Body weight 108.86 kg Oly Reed Other [facility] Other 06-24-2023 11:15-0500 Respiratory rate 19 /min Oly Reed Other [facility] Other 06-24-2023 11:15-0500 SaO2% (BldA) [Mass fraction] 98 % Oly Reed Other [facility] Other 06-11-2023 12:20-0500 Body height 167.64 cm Alice Tamez Other [facility] Other 06-11-2023 12:20-0500 Body mass index (BMI) [Ratio] 39.25 kg/m2 Alice Tamez Other [facility] Other 06-11-2023 12:20-0500 Body temperature 98.4 [degF] Alice Tamez Other [facility] Other 06-11-2023 12:20-0500 Body weight 110.32 kg Alice Tamez Other [facility] Other 06-11-2023 12:20-0500 Diastolic blood pressure 93 mm[Hg] Alice Tamez Other [facility] Other 06-11-2023 12:20-0500 Respiratory rate 18 /min Alice Tamez Other [facility] Other 06-11-2023 12:20-0500 SaO2% (BldA) [Mass fraction] 97 % Alice Tamez Other [facility] Other 06-11-2023 12:20-0500 Systolic blood pressure 144 mm[Hg] Alice Tamez Other [facility] Other 10-12-2021 10:20-0400 Body height 167.64 cm Alice Tamez Other [facility] Other 10-12-2021 10:20-0400 Body mass index (BMI) [Ratio] 38.73 kg/m2 Alice Tamez Other [facility] Other 10-12-2021 10:20-0400 Body temperature 98.3 [degF] Alice Tamez Other [facility] Other 10-12-2021 10:20-0400 Body weight 108.86 kg Alice Tamez Other [facility] Other 10-12-2021 10:20-0400 Respiratory rate 18 /min Alice Tamez Other [facility] Other 10-12-2021 10:20-0400 SaO2% (BldA) [Mass fraction] 97 % Alice Tamez Other [facility] Other Encounters Encounter Date Encounter Type Care Provider Facility Start: 01-07-2024 End: 01-07-2024 ambulatory JENNY HARMAN Not Available Start: 12-23-2023 End: 12-23-2023 ambulatory JENNY HARMAN Not Available Start: 11-25-2023 End: 11-25-2023 ambulatory JENNY HARMAN Not Available Start: 11-12-2023 End: 11-12-2023 ambulatory PHYSICIAN NO [facility] Facility:[facility] Start: 11-12-2023 End: 11-12-2023 Departed Referred PHYSICIAN [facility] Start: 11-12-2023 End: 11-12-2023 ambulatory PHYSICIAN [facility] Work Phone: Start: 10-14-2023 End: 10-14-2023 ambulatory JENNY HARMAN Not Available Start: 10-01-2023 End: 10-01-2023 ambulatory KASSANDRA AICHHOLZ Not Available Start: 08-22-2023 End: 08-22-2023 ambulatory KASSANDRA AICHHOLZ Not Available Start: 06-24-2023 End: 06-24-2023 ambulatory Oly Reed Other [facility] Other Start: 06-24-2023 Office outpatient vi sit 15 minutes Oly Reed [facility] Start: 06-11-2023 End: 06-11-2023 ambulatory Alice Tamez Other [facility] Other Start: 06-11-2023 Office outpatient vi sit 25 minutes Alice Tamez [facility] Start: 08-01-2022 End: 08-01-[address] JANET LANDON Facility:[facility] Start: 04-17-2022 Encounter for genera l adult medical examination without abnormal findings DR JANET LANDON [facility] Start: 04-12-2022 End: 04-13-[address] JANET LANDON Facility:[facility] Start: 04-12-2022 End: 04-13-2022 Encounter for general adult medical examination without abnormal findings DR JANET LANDON Facility:[facility] Start: 03-05-2022 End: 03-05-[address] JANET LANDON Facility:[facility] Start: 10-12-2021 End: 10-12-2021 ambulatory Alice Tamez Other [facility] Other Start: 10-12-2021 Office outpatient vi sit 15 minutes Aliec Tamez [facility] Start: 10-05-2021 End: 10-06-[address] SHEILA LYONS Facility:[facility] Payers Date Payer Category Payer Self-pay 2022 Unknown [id number] 2019 Unknown [id number] 2. [id number] 1991 Unknown [id number] 2.16.84 [id number] 1991 Unknown [id number] 2.16.84 [id number] 1991 Unknown [id number] 2.16.84 [id number] 1991 Unknown [id number] 2.16.84 [id number] 1991 Unknown [id number] 2.16.84 [id number] 1991 Unknown [id number] 2.16.84 [id number] 1991 Unknown [id number] 2.16.84 0.1.548034.3.579.2.9 1991 Unknown [id number] 2.16.84 [id number] 1991 Unknown [id number] 2.16.84 [id number] 1991 Unknown [id number] 2.16.84 [id number] 1959 Self-pay [id number] Unknown [id number] 2.16.84 [id number] Social History Date Type Detail Facility Unknown if ever smoked [facility] Other Sex Assigned At Sex Assigned At Bir th [facility] Other Start: 11-13-2023 Tobacco smoking status NHIS Never smoked tobacco (finding) [facility] Start: 1990 Sex Assigned At Female F [facility] Evaluation note 06-24-2023 Note Date & Type [...] no improvement in 2 to 3 days [employer] Other Evaluation note 06-11-2023 Note Date & [...] and rest, Tylenol as directed, rx of Sumrall and prednisone, OTC Flonase, cool mist humidifier, [...] treatment plan. Patient left in stable condition [employer] Other Evaluation note 10-12-2021 Note Date & [...] Patient care instructions given in writting by [facility] document [employer] Other Evaluation note Note Date & Type Note Facility Evaluation note No assessment information availa [facility] Work Phone: History general Narrative - Reported Note Date & Type Note Facility History general Narrative - Reported Type Medical History asthma Surgical History cyst removal 2004 Hospitalization History See Above Hospitalization History covid 2020 [facility] [employer] Other Summary Purpose Family History No Family [...] CREATED AUTHOR AUTHOR'S ORGANIZ ATION 11/15/2023 [facility] DATE CREATED AUTHOR AUTHOR'S ORGANIZ ATION 01/09/2024 [facility] [employer] Care Teams (unrecognized sec tion and content) Team Status: Active Member Role Status Dates PHYSICIAN NO FAMILY Primary Care Provider Active Team Status: Inactive Member Role Status Dates PHYSICIAN NO FAMILY Primary Care Provider Active Start: November 12, 2023 End: November 12, 2023 Jenny Alvarez Attending Provider Active Start: [facility] 2023 End: November 12, 2023 Goals (unrecognized [...] BE BASED ON THE PRIMARY CLINICAL RECORDS. [employer] provides no warranty or guarantee of the accuracy or completeness of information in this document.
[2024-01-22 05:39] LABS: Basophils Absolute Auto 0.1 10^3/uL (0.0-0.1); Basophils Percent Auto 0.7 % (0.2-2.0); Eosinophils Absolute Auto 0.2 10^3/uL (0.0-0.7); Eosinophils Percent Auto 1.5 % (0.9-7.0); Hematocrit 36.5 % (36.0-48.0); Hemoglobin 11.6 g/dL (12.0-16.0); Immature Granulocytes Abs Auto 0.01 10^3/uL (0.00-0.03); Immature Granulocytes Pct Auto 0.1 % (0.0-0.5); Lymphocytes Percent Auto 24.9 % (20.5-60.0); Mean Corpuscular HGB Conc 31.8 g/dL (29.9-35.2); Mean Corpuscular Hemoglobin 28.8 pg (26.7-34.0); Mean Corpuscular Volume 90.6 fL (81.0-99.0); Mean Platelet Volume 9.9 fL (9.5-13.5); Monocytes Percent Auto 8.2 % (1.7-12.0); Neutrophils Absolute Auto 7.8 10^3/uL (1.4-6.5); Neutrophils Percent Auto 64.6 % (43.0-75.0); Platelet Count 323 10^3/uL (150-450); Red Blood Count 4.03 10^6/uL (4.20-5.40); Red Cell Distribution Width 13.9 % (11.0-15.0)
== END 2024-01-22 05:26 | disposition home or self-care (01) ==
LOC: LAB 05:26
PROVIDERS: PCP Nurse Practitioner; Visit Provider Obstetrics & Gynecology
DX: D72.829 Elevated white blood cell count, unspecified (principal)
CPT/HCPCS: 36415; 85025

== ENCOUNTER 2024-01-24 08:47 | Day surgery (SDC) | payer BC, SELFPAY ==
[2024-01-24] VITALS (9 sets, daily range): BP systolic 107–134; BP diastolic 46–93; PULSE 82–98; TEMP 36.3–36.8; O2SAT 89–96; BMI 39.5
--- OUTSIDE RECORDS SUMMARY | 2024-01-24 08:51 | XMS_ITS | CCD ---
Author Organization [facility] Care Team Providers Care Plate Corrector Name Role Phone Alice Tamez Unavailable DIPESH, [...] Admitting Unavailable HOY, DR SOSA Attending Unavailable LNADON, DR JANET Johnson Admitting Unavailable LANDON, DR [...] 1.5 mg/ml oral solution (2 sources) Uncompetitive P-vimsgh-C-aspartat e Receptor Antagonist, Sigma-1 Agonist Start: 06-11-2023 take 10 mL by mouth every eight hours [place] DM 7.5-7.5 MG/5ML 10 mL Orally every [...] Test Name Value Interpretation Reference Range Facility [facility] 11-12-2023 L Specimen: [id number] Received: 11/13/23 Status: AGNES Reelaine Num: [id number] Spec Type: Surgical Subm Dr: Jenny Alvarez Tissues: A Endometrium - Biopsy (EMB) Procedures: HE/2, Gross/Micro L4 Age/ Patient Sex Location Account Attending Physician Chris Garibay 33/F LABE[facility] [id number] Jenny Alvarez SPEC NUM: [id number] RECD: 11/13/23 STATUS: AGNES BROWN NUM: [id number] LASHELL: 11/12/23- SUBM DR: Jenny Alvarez ENTERED: 11/13/[address] [facility] DR: Laurie,Lab SPEC TYPE: Surgical DEPT: JEANE [...] in A1. Clinical history: Menorrhagia CPT Codes 48897 Specimen: [id number] Received: 11/13/23 Status: AGNES Brown Num: [id number] Spec Type: Surgical Subm Dr: Jenny Alvarez Tissues: A Endometrium - Biopsy (EMB) Procedures: Felicia ADDISON/Amanda L4 Patient: Chris Garibay [id number] (Continued) Signed (signature on file) Jazmin Andrews MD 11/14/23 1547 Normal [facility] Quick Strepon 06-24-2023 S. pyogenes Org specific cx Ql (Throat) Negative [facility] Other Quick Strep [facility] Other COVID/FLU/RSV RT-PCRon 06-11 SARS-CoV-2 (COVID-19) RNA NATALIIA+probe Ql (Unsp spec) Negative [facility] Other COVID/FLU/RSV RT-PCR Negative [facility] Other CHLAMYDIA/GONOCOCCUS NATALIIA (SW AB/URINE/PAPon 08-03-2022 Chlamydia trachomatis, NATALIIA Negative Normal Negative [facility] Comment on above: Performed By: #### C T/NGNA #### [facility] [address] [place] [address] Dr. Anahy Sarah Neisseria gonorrhoeae, NATALIIA Negative Normal Negative [facility] Comment on above: Performed By: #### C T/NGNA #### [facility] [address] [place] [address] Dr. Anahy Sarah VAGINITIS/VAGINOSIS DNA PROB Omar 08-02-2022 Radha species Positive Abnormal Negative [facility] Comment on above: Performed By: #### V AGINT #### [facility] [address] [place] [address] Dr. Anahy Sarah Gardnerella vaginalis Negative Normal Negative [facility] Comment on above: Performed By: #### V AGINT #### [facility] [address] [place] [address] Dr. Anahy Sarah Trichomonas vaginalis Negative Normal Negative [facility] Comment on above: Performed By: #### V AGINT #### [facility] [address] [place] [address] Dr. Anahy Sarah CBC AUTO DIFFon 04-12-2022 BASO # 0.1 103/ul Normal 0.0-0.1 [facility] Comment on above: Performed By: #### C BC #### [facility] [address] [place] [address] Dr. Anahy Sarah Basophils/100 WBC (Bld) 0.9 % Normal 0.2-2.0 [facility] Comment on above: Performed By: #### C BC #### [facility] [address] [place] [address] Dr. Anahy Sarah EO # 0.1 103/ul Normal 0.0-0.7 [facility] Comment on above: Performed By: #### C BC #### [facility] [address] [place] [address] Dr. Anahy Sarah Eosinophils/100 WBC (Bld) 1.3 % Normal 0.9-7.0 [facility] Comment on above: Performed By: #### C BC #### [facility] [address] [place] [address] Dr. Anahy Sarah Erythrocyte distribution width (RBC) [Ratio] 12.6 % Normal 11.0-15.0 [facility] Comment on above: Performed By: #### C BC #### [facility] [address] [place] [address] Dr. Anahy Sarah Hematocrit (Bld) [Volume fraction] 35.5 % Critically low 36.0-48.0 [facility] Comment on above: Performed By: #### C BC #### [facility] [address] [place] [address] Dr. Anahy Sarah Hemoglobin (Bld) [Mass/Vol] 11.5 g/dL Critically low 12.0-16.0 [facility] Comment on above: Performed By: #### C BC #### [facility] [address] [place] [address] Dr. Anahy Sarah IG # 0.02 10e3/ul Normal 0.00-0.03 [facility] Comment on above: Performed By: #### C BC #### [facility] [address] [place] [address] Dr. Anahy Sarah IG % 0.2 % Normal 0.0-0.5 [facility] Comment on above: Performed By: #### C BC #### [facility] [address] [place] [address] Dr. Anahy Sarah LYMPH # 2.5 103/ul Normal 1.2-3.8 [facility] Comment on above: Performed By: #### C BC #### [facility] [address] [place] [address] Dr. Anahy Sarah Lymphocytes/100 WBC (Bld) 26.3 % Normal 20.5-60.0 [facility] Comment on above: Performed By: #### C BC #### [facility] [address] [place] [address] Dr. Anahy Sarah MANUAL DIFF REQ NO Normal [facility] Comment on above: Performed By: #### C BC #### [facility] [address] [address] [address] Anahy Sarah MCH (RBC) [Entitic mass] 28.8 pg Normal 26.7-34.0 [facility] Comment on above: Performed By: #### C BC #### [facility] [address] [address] [address] Anahy Sarah MCHC (RBC) [Mass/Vol] 32.4 g/dL Normal 29.9-35.2 [facility] Comment on above: Performed By: #### C BC #### [facility] [address] [place] [address] Dr. Anahy Sarah MCV (RBC) [Entitic vol] 88.8 fL Normal 81.0-99.0 [facility] Comment on above: Performed By: #### C BC #### [facility] [address] [place] [address] Dr. Anahy Sarah MONO # 0.7 103/ul Normal 0.3-0.8 [facility] Comment on above: Performed By: #### C BC #### [facility] [address] [place] [address] Dr. Anahy Sarah Monocytes/100 WBC (Bld) 7.1 % Normal 1.7-12.0 [facility] Comment on above: Performed By: #### C BC #### [facility] [address] [place] [address] Dr. Anahy Sarah NEUT # 6.0 103/ul Normal 1.4-6.5 [facility] Comment on above: Performed By: #### C BC #### [facility] [address] [place] [address] Dr. Anahy Sarah Neutrophils/100 WBC (Bld) 64.2 % Normal 43.0-75.0 [facility] Comment on above: Performed By: #### C BC #### [facility] [address] [place] [address] Dr. Anahy Sarah Platelet mean volume (Bld) [Entitic vol] 10.1 fL Normal 9.5-13.5 [facility] Comment on above: Performed By: #### C BC #### [facility] [address] [address] [address] Anahy Sarah PLT 287 103/ul Normal 150-450 [facility] Comment on above: Performed By: #### C BC #### [facility] [address] [address] [address] Anahy Sarah RBC 4.00 106/ul Critically low 4.20-5.40 [facility] Comment on above: Performed By: #### C BC #### [facility] [address] [address] [address] Anahy Sarah WBC 9.4 103/ul Normal 4.0-11.0 [facility] Comment on above: Performed By: #### C BC #### [facility] [address] [address] [address] Anahy Sarah GLYCOHEMOGLOBIN A1Con 2021 ADA RECOMMENDATION SEE BELOW Normal [facility] Comment on above: Result Comment: ADA RECOMMENDED LIMIT 4.0 - 6.0 ADA THERAPEUTIC TARGET < 7.0 ACTION SUGGESTED > 7.0 Performed By: #### A 1C #### [facility] [address] [address] [address] Anahy Sarah Glucose [Mass/Vol] 111 mg/dL Normal [facility] Comment on above: Performed By: #### A 1C #### [facility] [address] [address] [address] Anahy Sarah HbA1c (Bld) [Mass fraction] 5.5 % Normal 4.5-6.2 [facility] Comment on above: Performed By: #### A 1C #### [facility] [address] [address] [address] Anahy Sarah LIPID PROFILEon 04-12-2022 CHOL-HDL RATIO NORM SEE BELOW Normal [facility] Comment on above: Result Comment: 3.3 - 4.4 LOW RISK 4.4 - 7.1 AVERAGE RISK 7.1 - 11.0 MODERATE RISK >11.0 HIGH RISK Performed By: #### C MP, LIPID #### [facility] [address] [address] [address] Anahy Sarah Cholesterol [Mass/Vol] 168 mg/dL Normal <=200 [facility] Comment on above: Performed By: #### C MP, LIPID #### [facility] [address] [address] [address] Anahy Sarah Cholesterol in HDL [Mass/Vol] 47 mg/dL Normal 40-60 [facility] Comment on above: Performed By: #### C MP, LIPID #### [facility] [address] [address] [address] Anahy Sarah Cholesterol in LDL [Mass/Vol] 81.8 mg/dL Normal [facility] Comment on above: Performed By: #### C MP, LIPID #### [facility] [address] [address] [address] Anahy Sarah Cholesterol.total/Ch olesterol in HDL [Mass ratio] 3.6 {ratio} Normal [facility] Comment on above: Performed By: #### C MP, LIPID #### [facility] [address] [address] [address] Anahy Sarah HDL NORMAL > or = 60 mg/dl - LOW CARDIOVASCULAR RISK <40 mg/dl - HIGH CARDIOVASCULAR RISK Normal [facility] Comment on above: Performed By: #### C MP, LIPID #### [facility] [address] [address] [address] Anahy Sarah LDL CALC NORMAL SEE BELOW Normal [facility] Comment on above: Result Comment: <100 mg/dl OPTIMAL 100 - 129 mg/dl NEAR OR ABOVE OPTIMAL 130 - 159 mg/dl BORDERLINE HIGH 160 - 189 mg/dl HIGH >190 mg/dl VERY HIGH Performed By: #### C MP, LIPID #### [facility] [address] [address] [address] Anahy Sarah Triglyceride [Mass/Vol] 196 mg/dL Critically high <=150 [facility] Comment on above: Performed By: #### C MP, LIPID #### [facility] [address] [address] [address] Anahy Sarah VLDL CALC 39.2 mg/dL Normal [facility] Comment on above: Performed By: #### C MP, LIPID #### [facility] [address] [address] [address] Anahy Sarah PROF 14(COMP METB)on 022 Albumin [Mass/Vol] 3.5 g/dL Normal 3.4-5.0 [facility] Comment on above: Performed By: #### C MP, LIPID #### [facility] [address] [place] [address] Dr. Anahy Sarah Albumin/Globulin [Mass ratio] 0.9 {ratio} Normal [facility] Comment on above: Performed By: #### C MP, LIPID #### [facility] [address] [place] [address] Dr. Anahy Sarah ALP [Catalytic activity/Vol] 54 U/L Normal 46-116 [facility] Comment on above: Performed By: #### C MP, LIPID #### [facility] [address] [place] [address] Dr. Anahy Sarah ALT [Catalytic activity/Vol] 21 U/L Normal 14-59 [facility] Comment on above: Performed By: #### C MP, LIPID #### [facility] [address] [place] [address] Dr. Anahy Sarah Anion gap [Moles/Vol] 13.3 mmol/L Normal [facility] Comment on above: Performed By: #### C MP, LIPID #### [facility] [address] [place] [address] Dr. Anahy Sarah AST [Catalytic activity/Vol] 14 U/L Critically low 15-37 [facility] Comment on above: Performed By: #### C MP, LIPID #### [facility] [address] [place] [address] Dr. Anahy Sarah Bilirubin [Mass/Vol] 0.4 mg/dL Normal 0.2-1.0 [facility] Comment on above: Performed By: #### C MP, LIPID #### [facility] [address] [place] [address] Dr. Anahy Sarah Calcium [Mass/Vol] 8.5 mg/dL Normal 8.5-10.1 [facility] Comment on above: Performed By: #### C MP, LIPID #### [facility] [address] [place] [address] Dr. Anahy Sarah Chloride [Moles/Vol] 105 mmol/L Normal 98-107 [facility] Comment on above: Performed By: #### C MP, LIPID #### [facility] [address] [address] [address] Anahy Sarah CO2 [Moles/Vol] 23.4 mmol/L Normal 21.0-32.0 [facility] Comment on above: Performed By: #### C MP, LIPID #### [facility] [address] [place] [address] Dr. Anahy Sarah Creatinine [Mass/Vol] 0.74 mg/dL Normal 0.55-1.02 [facility] Comment on above: Performed By: #### C MP, LIPID #### [facility] [address] [place] [address] Dr. Anahy Sarah EGFR-AF [place]THER[place]ISH >60 Normal >=60 [facility] Comment on above: Performed By: #### C MP, LIPID #### [facility] [address] [place] [address] Dr. Anahy Sarah EGFR-NON AF [place]THER[place]ISH >60 Normal >=60 [facility] Comment on above: Performed By: #### C MP, LIPID #### [facility] [address] [place] [address] Dr. Anahy Sarah Globulin (S) [Mass/Vol] 3.7 g/dL Normal [facility] Comment on above: Performed By: #### C MP, LIPID #### [facility] [address] [place] [address] Dr. Anahy Sarah Glucose [Mass/Vol] 96 mg/dL Normal 74-106 [facility] Comment on above: Performed By: #### C MP, LIPID #### [facility] [address] [place] [address] Dr. Anahy Sarah Potassium [Moles/Vol] 3.7 mmol/L Normal 3.5-5.1 [facility] Comment on above: Performed By: #### C MP, LIPID #### [facility] [address] [address] [address] Anahy Sarah Protein [Mass/Vol] 7.2 g/dL Normal 6.4-8.2 [facility] Comment on above: Performed By: #### C MP, LIPID #### [facility] [address] [address] [address] Anahy Sarah Sodium [Moles/Vol] 138 mmol/L Normal 136-145 [facility] Comment on above: Performed By: #### C MP, LIPID #### [facility] [address] [address] [address] Anahy Sarah Urea nitrogen [Mass/Vol] 6.0 mg/dL Critically low 7.0-18.0 [facility] Comment on above: Performed By: #### C MP, LIPID #### [facility] [address] [address] [address] Anahy Sarah Urea nitrogen/Creatinine [Mass ratio] 8.1 mg/mg Normal [facility] Comment on above: Performed By: #### C MP, LIPID #### [facility] [address] [address] [address] Anahy Sarah PAP ACOG PANEL 2: 30 to 65on 03-09-2022 . . Normal [facility] Comment on above: Result Comment: Perf ormed at: WB Performed By: #### [id number] #### [facility] [address] [address] [address] Anahy Sarah Age Gdln ACOG Testing 30-65 Normal [facility] Comment on above: Performed By: #### [id number] #### [facility] [address] [address] [address] Anahy Sarah DIAGNOSIS: Comment Normal [facility] Comment on above: Result Comment: NEGA TIVE FOR INTRAEPITHELIAL LESION OR MALIGNANCY. Performed at: [facility] Performed By: #### [id number] #### [facility] [address] [address] [address] Anahy Sarah HPV Aptima Negative Normal Negative [facility] Comment on above: Result Comment: This nucleic acid amplification test detects fourteen high-risk HPV types (16,18,31,33,35,39,45,51,52,56,58,59,66,68) without differentiation. Performed at: =G Performed By: #### [id number] #### [facility] [address] [place] [address] Dr. Anahy Sarah Methodology: Comment Normal [facility] Comment on above: Result Comment: This liquid based ThinPrep(R) pap test was screened with the use of an image guided system. Performed at: WB Performed By: #### [id number] #### [facility] [address] [place] [address] Dr. Anahy Sarah Note: Comment Normal [facility] Comment on above: Result Comment: The Pap smear is a screening test designed to aid in the detection of premalignant and malignant conditions of the uterine cervix. It is not a diagnostic procedure and should not be used as the sole means of detecting cervical cancer. Both false-positive and false-negative reports do occur. . Performed at: WB Performed By: #### [id number] #### [facility] [address] [place] [address] Dr. Anahy Sarah Performed by: Comment Normal [facility] Comment on above: Result Comment: Nayla Garcia, Aircraft Restorer (ASCP) Performed at: WB Performed By: #### [id number] #### [facility] [address] [place] [address] Dr. Anahy Sarah Specimen adequacy: Comment Normal [facility] Comment on above: Result Comment: Sati sfactory for evaluation. Endocervical and/or squamous metaplastic cells (endocervical component) are present. Performed at: WB Performed By: #### [id number] #### [facility] [address] [place] [address] Dr. Anahy Sarah COVID Quick Testingon 2021 Result Negative [facility] Other Quick Fluon 10-12-2021 FLUAV Ab CF (S) [Titer] Negative [facility] Other FLUBV Ab CF (S) [Titer] Negative [facility] Other S. pyogenes Ag Ql (Throat)on 10-12-2021 S. pyogenes Org specific cx Ql (Throat) Positive [facility] Other Vital Signs Date Time Vital Sign Value Performing Clinician Facility 06-24-2023 11:15-0500 Body height 167.64 cm Oly Reed Other [facility] Other 06-24-2023 11:15-0500 Body mass index (BMI) [Ratio] 38.73 kg/m2 Oly Reed Other [facility] Other 06-24-2023 11:15-0500 Body temperature 99.8 [degF] Oly Reed Other [facility] Other 06-24-2023 11:15-0500 Body weight 108.86 kg Oly Reed Other [facility] Other 06-24-2023 11:15-0500 Respiratory rate 19 /min Oly Reed Other [facility] Other 06-24-2023 11:15-0500 SaO2% (BldA) [Mass fraction] 98 % Oly Reed Other [facility] Other 06-11-2023 12:20-0500 Body height 167.64 cm Alice Tamez Other [facility] Other 06-11-2023 12:20-0500 Body mass index (BMI) [Ratio] 39.25 kg/m2 Alice Tamez Other [facility] Other 06-11-2023 12:20-0500 Body temperature 98.4 [degF] Alice Tamez Other [facility] Other 06-11-2023 12:20-0500 Body weight 110.32 kg Alice Tamez Other [facility] Other 06-11-2023 12:20-0500 Diastolic blood pressure 93 mm[Hg] Alice Tamez Other [facility] Other 06-11-2023 12:20-0500 Respiratory rate 18 /min Alice Tamez Other [facility] Other 06-11-2023 12:20-0500 SaO2% (BldA) [Mass fraction] 97 % Alice Tamez Other [facility] Other 06-11-2023 12:20-0500 Systolic blood pressure 144 mm[Hg] Alice Tamez Other [facility] Other 10-12-2021 10:20-0400 Body height 167.64 cm Alice Tamez Other [facility] Other 10-12-2021 10:20-0400 Body mass index (BMI) [Ratio] 38.73 kg/m2 Alice Tamez Other [facility] Other 10-12-2021 10:20-0400 Body temperature 98.3 [degF] Alice Tamez Other [facility] Other 10-12-2021 10:20-0400 Body weight 108.86 kg Alice Tamez Other [facility] Other 10-12-2021 10:20-0400 Respiratory rate 18 /min Alice Tamez Other [facility] Other 10-12-2021 10:20-0400 SaO2% (BldA) [Mass fraction] 97 % Alice Tamez Other [facility] Other Encounters Encounter Date Encounter Type Care Provider Facility Start: 01-07-2024 End: 01-07-2024 ambulatory JENNY HARMAN Not Available Start: 12-23-2023 End: 12-23-2023 ambulatory JENNY HARMAN Not Available Start: 11-25-2023 End: 11-25-2023 ambulatory JENNY HARMAN Not Available Start: 11-12-2023 End: 11-12-2023 ambulatory PHYSICIAN NO [facility] Facility:[facility] Start: 11-12-2023 End: 11-12-2023 Departed Referred PHYSICIAN NO [facility] Start: 11-12-2023 End: 11-12-2023 ambulatory PHYSICIAN NO [facility] Work Phone: Start: 10-14-2023 End: 10-14-2023 ambulatory JENNY HARMAN Not Available Start: 10-01-2023 End: 10-01-2023 ambulatory KASSANDRA AICHHOLZ Not Available Start: 08-22-2023 End: 08-22-2023 ambulatory KASSANDRA AICHHOLZ Not Available Start: 06-24-2023 End: 06-24-2023 ambulatory Oly Reed Other [facility] Other Start: 06-24-2023 Office outpatient vi sit 15 minutes Oly Reed [facility] Start: 06-11-2023 End: 06-11-2023 ambulatory Alice Tamez Other [facility] Other Start: 06-11-2023 Office outpatient vi sit 25 minutes Alice Tamez [facility] Start: 08-01-2022 End: 08-01-[address] JANET LANDON Facility:[facility] Start: 04-17-2022 Encounter for genera l adult medical examination without abnormal findings DR JANET LANDON [facility] Start: 04-12-2022 End: 04-13-[address] JANET LANDON Facility:[facility] Start: 04-12-2022 End: 04-13-2022 Encounter for general adult medical examination without abnormal findings DR JANET LANDON Facility:[facility] Start: 03-05-2022 End: 03-05-[address] JANET LANDON Facility:[facility] Start: 10-12-2021 End: 10-12-2021 ambulatory Alice Tamez Other [facility] Other Start: 10-12-2021 Office outpatient vi sit 15 minutes Alice Tamez [facility] Start: 10-05-2021 End: 10-06-[address] SHEILA LYONS Facility:[facility] Payers Date Payer Category Payer Self-pay 2022 Unknown [id number] 2019 Unknown [id number]. [id number] 1991 Unknown [id number] 2.16.84 [id number] 1991 Unknown [id number] 2.16.84 [id number] 1991 Unknown [id number] 2.16.84 [id number] 1991 Unknown [id number] 2.16.84 [id number] 1991 Unknown [id number] 2.16.84 [id number] 1991 Unknown [id number] 2.16.84 [id number] 1991 Unknown [id number] 2.16.84 0.1.697901.3.579.2.9 1991 Unknown [id number] 2.16.84 0.1.037090.3.579.2.1259 1991 Unknown [id number] 2.16.84 0.1.396820.3.579.2.1259 1991 Unknown [id number] 2.16.84 [id number] 1959 Self-pay [id number] Unknown [id number] 2.16.84 [id number] Social History Date Type Detail Facility Unknown if ever smoked [facility] Other Sex Assigned At Sex Assigned At Bir th [facility] Other Start: 11-13-2023 Tobacco smoking status NHIS Never smoked tobacco (finding) [facility] Start: 1990 Sex Assigned At Female F [facility] Evaluation note 06-24-2023 Note Date & Type [...] no improvement in 2 to 3 days [facility] Other Evaluation note 06-11-2023 Note Date & [...] and rest, Tylenol as directed, rx of [place] and prednisone, OTC Flonase, cool mist humidifier, [...] treatment plan. Patient left in stable condition [facility] Other Evaluation note 10-12-2021 Note Date & [...] Patient care instructions given in writting by [facility] document [facility] Other Evaluation note Note Date & Type Note Facility Evaluation note No assessment information availa juma [facility] Work Phone: History general Narrative - Reported Note Date & Type Note Facility History general Narrative - Reported Type Medical History asthma Surgical History cyst removal 2004 Hospitalization History See Above Hospitalization History covid 2020 [facility] Other Summary Purpose Family History No Family [...] CREATED AUTHOR AUTHOR'S ORGANIZ ATION 11/15/2023 [facility] DATE CREATED AUTHOR AUTHOR'S ORGANIZ ATION 01/09/2024 [facility] Care Teams (unrecognized sec tion and content) Team Status: Active Member Role Status Dates PHYSICIAN NO FAMILY Primary Care Provider Active Team Status: Inactive Member Role Status Dates PHYSICIAN NO FAMILY Primary Care Provider Active Start: November 12, 2023 End: November 12, 2023 Jenny Alvarez Attending Provider Active Start: [facility] 2023 End: November 12, 2023 Goals (unrecognized [...] BE BASED ON THE PRIMARY CLINICAL RECORDS. [email or web address] provides no warranty or guarantee of the accuracy or completeness of information in this document.
[2024-01-24 08:56] LABS: Basophils Absolute Auto 0.1 10^3/uL (0.0-0.1); Basophils Percent Auto 0.9 % (0.2-2.0); Eosinophils Absolute Auto 0.1 10^3/uL (0.0-0.7); Eosinophils Percent Auto 1.4 % (0.9-7.0); Hematocrit 35.7 % (36.0-48.0); Hemoglobin 11.4 g/dL (12.0-16.0); Immature Granulocytes Abs Auto 0.02 10^3/uL (0.00-0.03); Immature Granulocytes Pct Auto 0.2 % (0.0-0.5); Lymphocytes Absolute Auto 2.1 10^3/uL (1.2-3.8); Lymphocytes Percent Auto 22.5 % (20.5-60.0); Mean Corpuscular HGB Conc 31.9 g/dL (29.9-35.2); Mean Corpuscular Hemoglobin 29.3 pg (26.7-34.0); Mean Corpuscular Volume 91.8 fL (81.0-99.0); Mean Platelet Volume 9.6 fL (9.5-13.5); Monocytes Absolute Auto 0.8 10^3/uL (0.3-0.8); Monocytes Percent Auto 8.4 % (1.7-12.0); Neutrophils Absolute Auto 6.1 10^3/uL (1.4-6.5); Neutrophils Percent Auto 66.6 % (43.0-75.0); Platelet Count 258 10^3/uL (150-450); Red Blood Count 3.89 10^6/uL (4.20-5.40); Red Cell Distribution Width 13.6 % (11.0-15.0); White Blood Count 9.2 10^3/uL (4.0-11.0)
[2024-01-24 09:16] LABS: HCG Quantitative <1 mIU/mL
[2024-01-24] MEDS: LACTATED RINGER'S SOLUTION 1,000 ML 50 ML IV ×2 (09:56→13:37)
--- NOTE | 2024-01-24 13:53 | PM.ONB ---
Brief Operative Note Date of procedure: 01/24/24 Pre-op diagnosis general: aub, pelvic pain, uterine fibroids Post-op diagnosis: other (multiple large intramural uterine fibroid, muliple large subserosal uterine fibroids) Procedure: NAME OF PROCEDURE: [ D&c hysteroscopy with myosure, diagnostic laparoscopy findings-several large intramural uterine fiboids, along with large fibroids seen that were punduculated and subserosal PROCEDURE: The patient was taken back to the Operating Room where she was prepped and draped in normal sterile fashion after being placed under general anesthesia without difficulty. She was also placed in the dorsal lithotomy position. A weighted speculum was placed in the patient?s vagina. The anterior lip of the cervix was identified and grasped with a single tooth tenaculum. The patient?s uterus was then sounded roughly to [? 9] cm. The patient was then gently dilated using Hegar dilators. The hysteroscope was passed through the patient?s cervix into the uterus. Both ostia were identified. fluffy appearing endometrium. several large intramural uterine fiboids were identified. The myosure apparatus was placed through the scope, The myosure was engaged and endometrial curretting were removed. however dt how fracisco the firoids the myosure could not be used. The hysteroscope was then removed from the uterus. The endometrial curettings were sent out to pathology. The single tooth tenaculum was then removed from the patient's anterior lip of the cervix where excellent hemostasis was noted. All instruments were removed from the patient?s vagina. A sponge stick was placed into the patient's vagina. Attention was turned to the patient's abdomen, where a small umbilical incision was made. The fascia was tented using Teri clamps and the fascia was entered sharply. Confirmation of intraabdominal placement of the 10 mm port was confirmed under direct visualization using a laparoscope. The patient's abdomen was then insufflated using CO2 gas with approximately 4 liters. A second port was placed left laterally, this was done under direct visualization with a 5 mm port. Survey of the patient's abdomen demonstrated normal liver and gallbladder. Survey of the patient's pelvic anatomy demonstrated normal appearing rt and lt ovary and tubes as well as several large uterine fibroids in the fundal region as well as a large pendunculated fibroid. No endometrial implants could be noted, no evidence of any pelvic disease was seen, normal appearing pelvic cavity. All instruments were removed from the patient's abdomen. The patient's abdomen was deinsufflated of CO2 gas. The patient tolerated the procedure well. Sponge stick was removed from the patient's vagina. The patient's infraumbilical fascia was closed using #0 Vicryl on a GI needle. The patient's skin was closed laterally and infraumbilically using 4-0 Vicryl. The patient tolerated the procedure well. Sponge, lap and needle counts were correct x 2. The patient was taken to Recovery Room in stable condition. Anesthesia: PETERSON Surgeon: Abel Alvarez Primary Special Educator: Lo Noriega Estimated blood loss (mL): 10 Pathology: other (endometrial currettings) Condition: stable Disposition: PACU Urinary Catheter Management Urinary Catheter Management Urethral: Cath placed during this visit: no
[2024-01-24] MEDS: HYDROCODONE/ACET 5-325 MG TABLET 1 TAB PO (14:31)
--- NOTE | 2024-01-24 15:34 | PC.NURSE ---
Up to bathroom and voids without dificulty clear yellow; peripad changed for medium amount bleeding without clots
== END 2024-01-24 15:35 | disposition home or self-care (01) ==
PROVIDERS: PCP Nurse Practitioner; Visit Provider Obstetrics & Gynecology
PROC: (CPT 840; principal; 2024-01-24 10:15)
PROC: (CPT 840; 2024-01-24 10:15)
DX: R93.89 Abnormal findings on diagnostic imaging of other specified body structures (principal); D25.9 Leiomyoma of uterus, unspecified; N92.1 Excessive and frequent menstruation with irregular cycle; N93.9 Abnormal uterine and vaginal bleeding, unspecified; E78.5 Hyperlipidemia, unspecified; D64.9 Anemia, unspecified; Z86.16 Personal history of COVID-19; J45.20 Mild intermittent asthma, uncomplicated
CPT/HCPCS: 49320; 58558; 36415; 84702; 85025; 88305; J1100; J1170; J1885; J2250; J2405; J2704; J3010

== ENCOUNTER 2024-03-18 06:38 | Outpatient (OUT) | payer BC, SELFPAY ==
--- OUTSIDE RECORDS SUMMARY | 2024-03-18 06:41 | XMS_ITS | CCD ---
Author Organization [facility] Care Team Providers Care Speech Therapy Teacher Name Role Phone Alice Tamez Unavailable DIPESH, [...] Provider Unava ilable Jenny Alvarez Attending Provider [phone] DO Jenny Alvarez Attending Provider Jenny Alvarez Attending Unavailable NO FAMILY, PHYSICIAN Primary Care Unavailable Jenny Alvarez Admitting Unavailable NO FAMILY, PHYSICIAN Primary Care Unavailable Jenny Alvarez Admitting Unavailable Jenny Alvarez Attending Unavailable KASSANDRA HODGES Attending Unavailable KASSANDRA HODGES Attending Unavailable JENNY ALVAREZ Attending Unavailable JENNY ALVAREZ Attending Unavailable JENNY ALVAREZ Attending Unavailable JENNY ALVAREZ Attending Unavailable JENNY ALVAREZ Attending Unavailable BENJI MURRAY Attending Unavailable KASSANDRA HODGES Attending Unavailable Medications Current [...] 1.5 mg/ml oral solution (2 sources) Uncompetitive G-atskfx-Y-aspartat e Receptor Antagonist, Sigma-1 Agonist Start: 06-11-2023 take 10 mL by mouth every eight hours [place] DM 7.5-7.5 MG/5ML 10 mL Orally every [...] Name Value Interpretation Reference Range Facility [facility] 01-24-2024 L Specimen: [id number] Received: 01/27/24 Status: AGNES Brown Num: [id number] Spec Type: Surgical Subm Dr: Jenny Alvarez Tissues: A Endometrium - Curettings (EMC) Procedures: HE/2, Gross/Micro L4 Age/ Patient Sex Location Account Attending Physician Chris Garibay 33/F [place] [id number] Jenny Alvarez SPEC NUM: [id number] RECD: 01/27/24 STATUS: AGNES BROWN NUM: [id number] LASHELL: 01/24/[address]: Jenny Alvarez ENTERED: 01/27/24 [facility] DR: Laurie,Lab SPEC TYPE: Surgical DEPT: JEANE SILVERIO ORDERED: HE/2, Gross/Micro L4 ORDERED: HE/2, Gross/Micro L4 Pathological Diagnosis Endometrial curettings: -Blood clot with multiple small biopsy strips of submucosal fibroid leiomyoma, and only scant limited portions of benign endometrial and endocervical glandular elements for assessment, and without hyperplasia or atypia identified Clinical Information Uterine fibroids, pelvic pain, abnormal bleeding Gross Description Received in formalin labeled with the patient's name, date of and endometrial curettings are multiple trujillo-brown tissue fragments admixed with clotted blood on a Telfa pad measuring in aggregate 2.6 x 2.1 x 0.3 cm, entirely submitted in A1. Microscopic Description Microscopic examinations are performed supporting the above interpretation Specimen: [id number] Received: 01/27/24 Status: AGNES Leyvaelaine Num: [id number] Spec Type: Surgical Subm Dr: Jenny Alvarez Tissues: A Endometrium - Curettings (EMC) Procedures: HE/2, Gross/Micro L4 Patient: Chris Garibay [id number] (Continued) Specimen: [id number] Received: 01/27/24 (Continued) Signed (signature on file) Ani Sarah MD 01/28/24 1607 Specimen: [id number] Received: 01/27/24 Status: AGNES Brown Num: [id number] Spec Type: Surgical Subm Dr: Jenny Rubio: A Endometrium - Curettings (EMC) Procedures: HE/2, Gross/Amanda L4 Patient: [place] [id number] (Continued) Specimen: [id number] Received: 01/27/24 (Continued) CPT Codes 68433 Specimen: [id number] Received: 01/27/24 Status: AGNES Brown Num: [id number] Spec Type: Surgical Subm Dr: Jenny Kim Tissues: A Endometrium - Curettings (EMC) Procedures: HE/2, Gross/Micro L4 Patient: Chris Garibay [id number] (Continued) Signed (signature on file) Ani Sarah MD 01/28/24 1607 [facility] 11-12-2023 L Specimen: [id number] Received: 11/13/23 Status: AGNES Brown Num: [id number] Spec Type: Surgical Subm Dr: Jenny Alvarez Tissues: A Endometrium - Biopsy (EMB) Procedures: HE/2, Gross/Micro L4 Age/ Patient Sex Location Account Attending Physician Chris Garibay 33/F [place] [id number] Jenny Alvarez SPEC NUM: [id number] RECD: 11/13/23 STATUS: AGNES BROWN NUM: [id number] LASHELL: 11/12/23- SUBM DR: Jenny Alvarez ENTERED: 11/13/23 [facility] DR: Laurie,Lab SPEC TYPE: Surgical DEPT: [...] in A1. Clinical history: Menorrhagia CPT Codes 08738 Specimen: [id number] Received: 11/13/23 Status: AGNES Leyvaelaine Num: [id number] Spec Type: Surgical Subm Dr: Jenny Alvarez Tissues: A Endometrium - Biopsy (EMB) Procedures: CYN, Felicia/Amanda L4 Patient: Chris Garibay [id number] (Continued) Signed (signature on file) Jazmin Andrews MD 11/14/23 1547 Normal [facility] Quick Strepon 06-24-2023 S. pyogenes Org specific cx Ql (Throat) Negative [facility] Other Quick Strep [facility] Other COVID/FLU/RSV RT-PCRon 06-11 SARS-CoV-2 (COVID-19) RNA NATALIIA+probe Ql (Unsp spec) Negative [facility] Other COVID/FLU/RSV RT-PCR Negative [facility] Other CHLAMYDIA/GONOCOCCUS NATALIIA (SW AB/URINE/PAPon 08-03-2022 Chlamydia trachomatis, NATALIIA Negative Normal Negative [facility] Comment on above: Performed By: #### C T/NGNA #### [facility] [address] [place] [address] Dr. Anahy Sarah Neisseria gonorrhoeae, NATALIIA Negative Normal Negative [facility] Comment on above: Performed By: #### C T/NGNA #### [facility] [address] [place] [address] Dr. Anahy Sarah VAGINITIS/VAGINOSIS DNA PROB Omar 08-02-2022 Radha species Positive Abnormal Negative [facility] Comment on above: Performed By: #### V AGINT #### [facility] [address] [place] [address] Dr. Anahy Sarah Gardnerella vaginalis Negative Normal Negative [facility] Comment on above: Performed By: #### V AGINT #### [facility] [address] [place] [address] Dr. Anahy Sarah Trichomonas vaginalis Negative Normal Negative [facility] Comment on above: Performed By: #### V AGINT #### [facility] [address] [place] [address] Dr. Anahy Sarah CBC AUTO DIFFon 04-12-2022 BASO # 0.1 103/ul Normal 0.0-0.1 [facility] Comment on above: Performed By: #### C BC #### [facility] [address] [address] [address] nAahy Sarah Basophils/100 WBC (Bld) 0.9 % Normal 0.2-2.0 [facility] Comment on above: Performed By: #### C BC #### [facility] [address] [address] [address] Anahy Sarah EO # 0.1 103/ul Normal 0.0-0.7 [facility] Comment on above: Performed By: #### C BC #### [facility] [address] [address] [address] Anahy Sarah Eosinophils/100 WBC (Bld) 1.3 % Normal 0.9-7.0 [facility] Comment on above: Performed By: #### C BC #### [facility] [address] [place] [address] Dr. Anahy Sarah Erythrocyte distribution width (RBC) [Ratio] 12.6 % Normal 11.0-15.0 [facility] Comment on above: Performed By: #### C BC #### [facility] [address] [place] [address] Dr. Anahy Sarah Hematocrit (Bld) [Volume fraction] 35.5 % Critically low 36.0-48.0 [facility] Comment on above: Performed By: #### C BC #### [facility] [address] [place] [address] Dr. Anahy Sarah Hemoglobin (Bld) [Mass/Vol] 11.5 g/dL Critically low 12.0-16.0 [facility] Comment on above: Performed By: #### C BC #### [facility] [address] [place] [address] Dr. Anahy Sarah IG # 0.02 10e3/ul Normal 0.00-0.03 [facility] Comment on above: Performed By: #### C BC #### [facility] [address] [address] [address] Anahy Sarah IG % 0.2 % Normal 0.0-0.5 [facility] Comment on above: Performed By: #### C BC #### [facility] [address] [place] [address] Dr. Anahy Sarah LYMPH # 2.5 103/ul Normal 1.2-3.8 [facility] Comment on above: Performed By: #### C BC #### [facility] [address] [place] [address] Dr. Anahy Sarah Lymphocytes/100 WBC (Bld) 26.3 % Normal 20.5-60.0 [facility] Comment on above: Performed By: #### C BC #### [facility] [address] [place] [address] Dr. Anahy Sarah MANUAL DIFF REQ NO Normal [facility] Comment on above: Performed By: #### C BC #### [facility] [address] [place] [address] Dr. Anahy Sarah MCH (RBC) [Entitic mass] 28.8 pg Normal 26.7-34.0 [facility] Comment on above: Performed By: #### C BC #### [facility] [address] [place] [address] Dr. Anahy Sarah MCHC (RBC) [Mass/Vol] 32.4 g/dL Normal 29.9-35.2 [facility] Comment on above: Performed By: #### C BC #### [facility] [address] [place] [address] Dr. Anahy Sarah MCV (RBC) [Entitic vol] 88.8 fL Normal 81.0-99.0 [facility] Comment on above: Performed By: #### C BC #### [facility] [address] [place] [address] Dr. Anahy Sarah MONO # 0.7 103/ul Normal 0.3-0.8 [facility] Comment on above: Performed By: #### C BC #### [facility] [address] [place] [address] Dr. Anahy Sarah Monocytes/100 WBC (Bld) 7.1 % Normal 1.7-12.0 [facility] Comment on above: Performed By: #### C BC #### [facility] [address] [address] [address] Anahy Sarah NEUT # 6.0 103/ul Normal 1.4-6.5 [facility] Comment on above: Performed By: #### C BC #### [facility] [address] [address] [address] Anahy Sarah Neutrophils/100 WBC (Bld) 64.2 % Normal 43.0-75.0 [facility] Comment on above: Performed By: #### C BC #### [facility] [address] [address] [address] Anahy Sarah Platelet mean volume (Bld) [Entitic vol] 10.1 fL Normal 9.5-13.5 [facility] Comment on above: Performed By: #### C BC #### [facility] [address] [place] [address] Dr. Anahy Sarah PLT 287 103/ul Normal 150-450 [facility] Comment on above: Performed By: #### C BC #### [facility] [address] [place] [address] Dr. Anahy Sarah RBC 4.00 106/ul Critically low 4.20-5.40 [facility] Comment on above: Performed By: #### C BC #### [facility] [address] [place] [address] Dr. Anahy Sarah WBC 9.4 103/ul Normal 4.0-11.0 [facility] Comment on above: Performed By: #### C BC #### [facility] [address] [place] [address] Dr. Anahy Sarah GLYCOHEMOGLOBIN A1Con 2021 ADA RECOMMENDATION SEE BELOW Normal [facility] Comment on above: Result Comment: ADA RECOMMENDED LIMIT 4.0 - 6.0 ADA THERAPEUTIC TARGET < 7.0 ACTION SUGGESTED > 7.0 Performed By: #### A 1C #### [facility] [address] [place] [address] Dr. Anahy Sarah Glucose [Mass/Vol] 111 mg/dL Normal [facility] Comment on above: Performed By: #### A 1C #### [facility] [address] [place] [address] Dr. Anahy Sarah HbA1c (Bld) [Mass fraction] 5.5 % Normal 4.5-6.2 [facility] Comment on above: Performed By: #### A 1C #### [facility] [address] [place] [address] Dr. Anahy Sarah LIPID PROFILEon 04-12-2022 CHOL-HDL RATIO NORM SEE BELOW Normal [facility] Comment on above: Result Comment: 3.3 - 4.4 LOW RISK 4.4 - 7.1 AVERAGE RISK 7.1 - 11.0 MODERATE RISK >11.0 HIGH RISK Performed By: #### C MP, LIPID #### [facility] [address] [place] [address] Dr. Anahy Sarah Cholesterol [Mass/Vol] 168 mg/dL Normal <=200 [facility] Comment on above: Performed By: #### C MP, LIPID #### [facility] [address] [place] [address] Dr. Anahy Sarah Cholesterol in HDL [Mass/Vol] 47 mg/dL Normal 40-60 [facility] Comment on above: Performed By: #### C MP, LIPID #### [facility] [address] [place] [address] Dr. Anahy Sarah Cholesterol in LDL [Mass/Vol] 81.8 mg/dL Normal [facility] Comment on above: Performed By: #### C MP, LIPID #### [facility] [address] [place] [address] Dr. Anahy Sarah Cholesterol.total/Ch olesterol in HDL [Mass ratio] 3.6 {ratio} Normal [facility] Comment on above: Performed By: #### C MP, LIPID #### [facility] [address] [place] [address] Dr. Anahy Sarah HDL NORMAL > or = 60 mg/dl - LOW CARDIOVASCULAR RISK <40 mg/dl - HIGH CARDIOVASCULAR RISK Normal [facility] Comment on above: Performed By: #### C MP, LIPID #### [facility] [address] [place] [address] Dr. Anahy Sarah LDL CALC NORMAL SEE BELOW Normal [facility] Comment on above: Result Comment: <100 mg/dl OPTIMAL 100 - 129 mg/dl NEAR OR ABOVE OPTIMAL 130 - 159 mg/dl BORDERLINE HIGH 160 - 189 mg/dl HIGH >190 mg/dl VERY HIGH Performed By: #### C MP, LIPID #### [facility] [address] [address] [address] Anahy Sarah Triglyceride [Mass/Vol] 196 mg/dL Critically high <=150 [facility] Comment on above: Performed By: #### C MP, LIPID #### [facility] [address] [address] [address] Anahy Sarah VLDL CALC 39.2 mg/dL Normal [facility] Comment on above: Performed By: #### C MP, LIPID #### [facility] [address] [address] [address] Anahy Sarah PROF 14(COMP METB)on 022 Albumin [Mass/Vol] 3.5 g/dL Normal 3.4-5.0 [facility] Comment on above: Performed By: #### C MP, LIPID #### [facility] [address] [address] [address] Anahy Sarah Albumin/Globulin [Mass ratio] 0.9 {ratio} Normal [facility] Comment on above: Performed By: #### C MP, LIPID #### [facility] [address] [address] [address] Anahy Sarah ALP [Catalytic activity/Vol] 54 U/L Normal 46-116 [facility] Comment on above: Performed By: #### C MP, LIPID #### [facility] [address] [address] [address] Anahy Sarah ALT [Catalytic activity/Vol] 21 U/L Normal 14-59 [facility] Comment on above: Performed By: #### C MP, LIPID #### [facility] [address] [address] [address] Anahy Sarah Anion gap [Moles/Vol] 13.3 mmol/L Normal [facility] Comment on above: Performed By: #### C MP, LIPID #### [facility] [address] [address] [address] Anahy Sarah AST [Catalytic activity/Vol] 14 U/L Critically low 15-37 [facility] Comment on above: Performed By: #### C MP, LIPID #### [facility] [address] [address] [address] Anahy Sarah Bilirubin [Mass/Vol] 0.4 mg/dL Normal 0.2-1.0 [facility] Comment on above: Performed By: #### C MP, LIPID #### [facility] [address] [address] [address] Anahy Sarah Calcium [Mass/Vol] 8.5 mg/dL Normal 8.5-10.1 [facility] Comment on above: Performed By: #### C MP, LIPID #### [facility] [address] [address] [address] Anahy Sarah Chloride [Moles/Vol] 105 mmol/L Normal 98-107 [facility] Comment on above: Performed By: #### C MP, LIPID #### [facility] [address] [address] [address] Anahy Sarah CO2 [Moles/Vol] 23.4 mmol/L Normal 21.0-32.0 [facility] Comment on above: Performed By: #### C MP, LIPID #### [facility] [address] [address] [address] Anahy Sarah Creatinine [Mass/Vol] 0.74 mg/dL Normal 0.55-1.02 [facility] Comment on above: Performed By: #### C MP, LIPID #### [facility] [address] [address] [address] Anahy Sarah EGFR-AF FRENCH >60 Normal >=60 [facility] Comment on above: Performed By: #### C MP, LIPID #### [facility] [address] [address] [address] Anahy Sarah EGFR-NON AF FRENCH >60 Normal >=60 [facility] Comment on above: Performed By: #### C MP, LIPID #### [facility] [address] [address] [address] Anahy Sarah Globulin (S) [Mass/Vol] 3.7 g/dL Normal [facility] Comment on above: Performed By: #### C MP, LIPID #### [facility] [address] [address] [address] Anahy Sarah Glucose [Mass/Vol] 96 mg/dL Normal 74-106 [facility] Comment on above: Performed By: #### C MP, LIPID #### [facility] [address] [address] [address] Anahy Sarah Potassium [Moles/Vol] 3.7 mmol/L Normal 3.5-5.1 [facility] Comment on above: Performed By: #### C MP, LIPID #### [facility] [address] [place] [address] Dr. Anahy Sarah Protein [Mass/Vol] 7.2 g/dL Normal 6.4-8.2 [facility] Comment on above: Performed By: #### C MP, LIPID #### [facility] [address] [address] [address] Anahy Sarah Sodium [Moles/Vol] 138 mmol/L Normal 136-145 [facility] Comment on above: Performed By: #### C MP, LIPID #### [facility] [address] [place] [address] Dr. Anahy Sarah Urea nitrogen [Mass/Vol] 6.0 mg/dL Critically low 7.0-18.0 [facility] Comment on above: Performed By: #### C MP, LIPID #### [facility] [address] [place] [address] Dr. Anahy Sarah Urea nitrogen/Creatinine [Mass ratio] 8.1 mg/mg Normal [facility] Comment on above: Performed By: #### C MP, LIPID #### [facility] [address] [place] [address] Dr. Anahy Sarah PAP ACOG PANEL 2: 30 to 65on 03-09-2022 . . Normal [facility] Comment on above: Result Comment: Perf ormed at: WB Performed By: #### [id number] #### [facility] [address] [address] [address] Anahy Sarah Age Gdln ACOG Testing 30-65 Normal [facility] Comment on above: Performed By: #### [id number] #### [facility] [address] [place] [address] Dr. Anahy Sarah DIAGNOSIS: Comment Normal [facility] Comment on above: Result Comment: NEGA TIVE FOR INTRAEPITHELIAL LESION OR MALIGNANCY. Performed at: WB Performed By: #### [id number] #### [facility] [address] [place] [address] Dr. Anahy Sarah HPV Aptima Negative Normal Negative [facility] Comment on above: Result Comment: This nucleic acid amplification test detects fourteen high-risk HPV types (16,18,31,33,35,39,45,51,52,56,58,59,66,68) without differentiation. Performed at: =G Performed By: #### [id number] #### [facility] [address] [place] [address] Dr. Anahy Sarah Methodology: Comment Normal [facility] Comment on above: Result Comment: This liquid based ThinPrep(R) pap test was screened with the use of an image guided system. Performed at: WB Performed By: #### [id number] #### [facility] [address] [place] [address] Dr. Anahy Sarah Note: Comment Normal [facility] Comment on above: Result Comment: The Pap smear is a screening test designed to aid in the detection of premalignant and malignant conditions of the uterine cervix. It is not a diagnostic procedure and should not be used as the sole means of detecting cervical cancer. Both false-positive and false-negative reports do occur. . Performed at: WB Performed By: #### [id number] #### [facility] [address] [place] [address] Dr. Anahy Sarah Performed by: Comment Normal [facility] Comment on above: Result Comment: Nayla Garcia, Hot Air Furnace Installer And Repairer (ASCP) Performed at: WB Performed By: #### [id number] #### [facility] [address] [address] [address] Anahy Sarah Specimen adequacy: Comment Normal [facility] Comment on above: Result Comment: Sati sfactory for evaluation. Endocervical and/or squamous metaplastic cells (endocervical component) are present. Performed at: WB Performed By: #### [id number] #### [facility] [address] [address] [address] Anahy Sarah COVID Quick Testingon 2021 Result Negative [facility] Other Quick Fluon 10-12-2021 FLUAV Ab CF (S) [Titer] Negative [facility] Other FLUBV Ab CF (S) [Titer] Negative [facility] Other S. pyogenes Ag Ql (Throat)on 10-12-2021 S. pyogenes Org specific cx Ql (Throat) Positive [facility] Other Vital Signs Date Time Vital Sign Value Performing Clinician Facility 06-24-2023 11:15-0500 Body height 167.64 cm Oly Brianna Other [facility] Other 06-24-2023 11:15-0500 Body mass index (BMI) [Ratio] 38.73 kg/m2 Oly Reed Other [facility] Other 06-24-2023 11:15-0500 Body temperature 99.8 [degF] Oly Brianna Other [facility] Other 06-24-2023 11:15-0500 Body weight 108.86 kg Oly Brianna Other [facility] Other 06-24-2023 11:15-0500 Respiratory rate 19 /min Oly Reed Other [facility] Other 06-24-2023 11:15-0500 SaO2% (BldA) [Mass fraction] 98 % Oly Reed Other [facility] Other 06-11-2023 12:20-0500 Body height 167.64 cm Alice Tamez Other [facility] Other 06-11-2023 12:20-0500 Body mass index (BMI) [Ratio] 39.25 kg/m2 Alice Tamez Other [facility] Other 06-11-2023 12:20-0500 Body temperature 98.4 [degF] Alice Tamez Other [facility] Other 06-11-2023 12:20-0500 Body weight 110.32 kg Alice Tamez Other [facility] Other 06-11-2023 12:20-0500 Diastolic blood pressure 93 mm[Hg] Alice Tamez Other [facility] Other 06-11-2023 12:20-0500 Respiratory rate 18 /min Alice Tamez Other [facility] Other 06-11-2023 12:20-0500 SaO2% (BldA) [Mass fraction] 97 % Alice Tamez Other [facility] Other 06-11-2023 12:20-0500 Systolic blood pressure 144 mm[Hg] Alice Tamez Other [facility] Other 10-12-2021 10:20-0400 Body height 167.64 cm Alice Tamez Other [facility] Other 10-12-2021 10:20-0400 Body mass index (BMI) [Ratio] 38.73 kg/m2 Alice Tamez Other [facility] Other 10-12-2021 10:20-0400 Body temperature 98.3 [degF] Alice Tamez Other [facility] Other 10-12-2021 10:20-0400 Body weight 108.86 kg Alice Tamez Other [facility] Other 10-12-2021 10:20-0400 Respiratory rate 18 /min Alice Tamez Other [facility] Other 10-12-2021 10:20-0400 SaO2% (BldA) [Mass fraction] 97 % Alice Tamez Other [facility] Other Encounters Encounter Date Encounter Type Care Provider Facility Start: 03-12-2024 End: 03-12-2024 ambulatory KASSANDRADestiney HODGES Not Available Start: 02-03-2024 End: 02-03-2024 ambulatory BENJI MURRAY Not Available Start: 01-24-2024 End: 01-24-2024 ambulatory PHYSICIAN NO [facility] Work Phone: Start: 01-24-2024 End: 01-24-2024 Departed Referred PHYSICIAN NO [facility] [facility] Start: 01-07-2024 End: 01-07-2024 ambulatory JENNY KIM Not Available Start: 12-23-2023 End: 12-23-2023 ambulatory JENNY KIM Not Available Start: 11-25-2023 End: 11-25-2023 ambulatory JENNY KIM Not Available Start: 11-12-2023 End: 11-12-2023 Departed Referred PHYSICIAN NO [facility] Start: 11-12-2023 End: 11-12-2023 ambulatory PHYSICIAN TWIN [facility] Work Phone: Start: 10-14-2023 End: 10-14-2023 ambulatory JENNY ALVAREZ Not Available Start: 10-01-2023 End: 10-01-2023 ambulatory KASSANDRA AICHHOLZ Not Available Start: 08-22-2023 End: 08-22-2023 ambulatory KASSANDRA AICHHOLZ Not Available Start: 06-24-2023 End: 06-24-2023 ambulatory Oly Reed Other [facility] Other Start: 06-24-2023 Office outpatient vi sit 15 minutes Olytrent Reed [facility] Start: 06-11-2023 End: 06-11-2023 ambulatory Alice Tamez Other [facility] Other Start: 06-11-2023 Office outpatient vi sit 25 minutes Alice Tamez [facility] Start: 08-01-2022 End: 08-01-[address] JANET LANDON Facility:[facility] Start: 04-17-2022 Encounter for genera l adult medical examination without abnormal findings DR JANET LANDON [facility] Start: 04-12-2022 End: 04-13-[address] JANET LANDON Facility:[facility] Start: 04-12-2022 End: 04-13-2022 Encounter for general adult medical examination without abnormal findings DR JANET LANDON Facility:[facility] Start: 03-05-2022 End: 03-05-[address] JANET LANDON Facility:[facility] Start: 10-12-2021 End: 10-12-2021 ambulatory Alice Tamez Other [facility] Other Start: 10-12-2021 Office outpatient vi sit 15 minutes Alice Tamez [facility] Start: 10-05-2021 End: 10-06-[address] SHEILA LYONS Facility:[facility] Payers Date Payer Category Payer Self-pay 2022 Unknown [id number] 2019 Unknown [id number]. [id number] 1991 Unknown [id number] 2.16.84 [id number] 1991 Unknown [id number] 2.16.84 0.1.360186.3.579.2.593 1991 Unknown [id number] 2.16.84 0.1.005787.3.579.2.593 1991 Unknown [id number] 2.16.84 0.1.535976.3.579.2.1259 1991 Unknown [id number] 2.16.84 0.1.384055.3.579.2.1259 1991 Unknown [id number] 2.16.84 0.1.264555.3.579.2.1259 1991 Unknown [id number] 2.16.84 0.1.927398.3.579.2.1259 1991 Unknown [id number] 2.16.84 0.1.557772.3.579.2.1259 1991 Unknown [id number] 2.16.84 0.1.521022.3.579.2.1259 1991 Unknown [id number] 2.16.84 0.1.105012.3.579.2.1259 1991 Unknown [id number] 2.16.84 0.1.886616.3.579.2.1259 1991 Unknown [id number] 2.16.84 0.1.545283.3.579.2.1259 1959 Self-pay [id number] Unknown [id number] 2.16.84 0.1.793507.3.579.2.593 Social History Date Type Detail Facility Unknown if ever smoked [facility] Other Sex Assigned At Sex Assigned At Bir th [facility] Other Start: 11-13-2023 Tobacco smoking status NHIS Never smoked tobacco (finding) [facility] Start: 1990 Sex Assigned At Female F [facility] Evaluation note 06-24-2023 Note Date & [...] no improvement in 2 to 3 days [facility] Other Evaluation note 06-11-2023 Note Date & [...] and rest, Tylenol as directed, rx of [place] and prednisone, OTC Flonase, cool mist humidifier, [...] treatment plan. Patient left in stable condition [facility] Other Evaluation note 10-12-2021 Note Date & [...] Patient care instructions given in writting by [facility] Care At Home document [facility] Other Evaluation note Note Date & Type Note Facility Evaluation note No assessment information [facility] Work Phone: History general Narrative - Reported Note Date & Type Note Facility History general Narrative - Reported Type Medical History asthma Surgical History cyst removal 2004 Hospitalization History See Above Hospitalization History covid 2020 [facility] Other Summary Purpose Family History No Family [...] pital DATE CREATED AUTHOR AUTHOR'S ORGANIZ ATION 02/03/2024 [facility] DATE CREATED AUTHOR AUTHOR'S ORGANIZ ATION 03/14/2024 [facility] [employer] Care Teams (unrecognized sec tion and content) Team Status: Active Member Role Status Dates PHYSICIAN NO FAMILY Primary Care Provider Active Team Status: Inactive Member Role Status Dates PHYSICIAN NO FAMILY Primary Care Provider Active Start: November 12, 2023 End: November 12, 2023 Jenny Alvarez Attending Provider Active Start: Ap 2023 End: November 12, 2023 Team Status: Inactive Member Role Status Dates PHYSICIAN NO FAMILY Primary Care Provider Active Start: November 12, 2023 End: November 12, 2023 Jenny Alvarez DO Attending Provider Active Start : November 12, 2023 End: November 12, 2023 Team Status: Inactive Member Role Status Dates PHYSICIAN NO FAMILY Primary Care Provider Active Start: January 24, 2024 End: January 24, 2024 Jenny Alvarez DO Attending Provider Active Start : January 24, 2024 End: January 24, 2024 Goals (unrecognized section and content) Goals may [...] BE BASED ON THE PRIMARY CLINICAL RECORDS. [employer] provides no warranty or guarantee of the accuracy or completeness of information in this document.
[2024-03-18 08:10] LABS: Basophils Absolute Auto 0.1 10^3/uL (0.0-0.1); Basophils Percent Auto 1.3 % (0.2-2.0); Eosinophils Absolute Auto 0.2 10^3/uL (0.0-0.7); Eosinophils Percent Auto 2.5 % (0.9-7.0); Hematocrit 35.8 % (36.0-48.0); Hemoglobin 11.5 g/dL (12.0-16.0); Immature Granulocytes Abs Auto 0.01 10^3/uL (0.00-0.03); Immature Granulocytes Pct Auto 0.1 % (0.0-0.5); Lymphocytes Absolute Auto 2.4 10^3/uL (1.2-3.8); Lymphocytes Percent Auto 29.8 % (20.5-60.0); Mean Corpuscular HGB Conc 32.1 g/dL (29.9-35.2); Mean Corpuscular Volume 90.4 fL (81.0-99.0); Mean Platelet Volume 11.4 fL (9.5-13.5); Monocytes Absolute Auto 0.7 10^3/uL (0.3-0.8); Monocytes Percent Auto 8.3 % (1.7-12.0); Neutrophils Absolute Auto 4.6 10^3/uL (1.4-6.5); Platelet Count 305 10^3/uL (150-450); Red Blood Count 3.96 10^6/uL (4.20-5.40); Red Cell Distribution Width 12.7 % (11.0-15.0); White Blood Count 7.9 10^3/uL (4.0-11.0)
== END 2024-03-18 06:39 | disposition home or self-care (01) ==
LOC: LAB 06:39
PROVIDERS: PCP Nurse Practitioner; Visit Provider Nurse Practitioner
DX: D50.9 Iron deficiency anemia, unspecified (principal)
CPT/HCPCS: 36415; 82728; 83540; 85025

== ENCOUNTER 2024-06-02 09:37 | Emergency (ER) | payer BC, SELFPAY ==
[2024-06-02 09:41] VITALS: BP 146/97; PULSE 97; TEMP 36.7; O2SAT 100; BMI 40.6
[2024-06-02] MEDS: KETOROLAC TROMETHAMINE 60 MG/2 ML VIAL IM (10:10)
[2024-06-02] MEDS: ORPHENADRINE 60 MG/ 2 ML VIAL IM (10:10)
[2024-06-02 10:20] VITALS: BP 136/88; PULSE 88; O2SAT 98
--- OUTSIDE RECORDS SUMMARY | 2024-06-02 10:23 | XMS_ITS | CCD ---
Author Organization [facility] Care Team Providers Care Senior Engineering Technician Name Role Phone Alice Tamez Unavailable DIPESH, [...] Provider Unava ilable Jenny Alvarez Attending Provider DO Jenny Alvarez Attending Provider [phone] Jenny Alvarez Attending Unavailable NO FAMILY, PHYSICIAN [...] MURRAY Attending Unavailable KASSANDRA HODGES Attending Unavailable Cathy Wood LPN Unavailable Unavailab le Medications Current Medications Medication Drug Class(es) Dates Sig (Normalized) Sig (Original) [id number] 200 actuat albuterol 0.09 mg/actuat metered dose inhaler (1 source) beta2-Adrenergic Agonist Start: 08-22-2023 take 2 puff(s) by inhalation every six hours albuterol 90 mcg/actuation inhaler Inhale 2 puffs every 6 hours if needed. 08/22/2023 Active ferrous sulfate 325 mg delayed release oral tablet (1 source) take 1 tablet by mouth three times daily ferrous sulfate 325 (65 Fe) MG EC tablet Take 65 mg by mouth 3 times daily (morning, midday, late afternoon). Do not crush, chew, or split. Active 08/10 (3 sources) 08/10 Not-Taking 08/10 Ac tive 24 hr metFORMIN hydrochloride 500 mg extended release oral tablet (1 source) Biguanide take 1 tablet by mouth every twenty-four hours at mealtime metFORMIN XR 500 mg 24 hr tablet TAKE 1 TABLET (500 MG) BY MOUTH IN THE EVENING. TAKE WITH MEALS DO NOT CRUSH, CHEW, OR SPLIT. Active montelukast 10 mg oral tablet (6 sources) Leukotriene Receptor Antagonist Start: 02-20-20 End: 05-20-20 24 take 1 tablet by mouth once daily at bedtime montelukast (Singulair) 10 mg tablet Take 1 tablet (10 mg) by mouth once daily at bedtime. 02/20/2024 05/20/2024 Active Start: 06-11-2023 take 1 tablet by connie th every twenty-four hours Montelukast Sodium 10 MG 1 tablet Orally Once a day for 30 day(s) May, Active predniSONE 20 mg oral tablet (3 sources) Start: 06-11-2023 take 1 tablet by mouth every twelve hours predniSONE 20 MG 1 tablet Orally bid for 5 day(s) Jun, Active vitamin b12 1 mg oral capsule (1 source) Vitamin B12 cyanocobalamin, vitamin B-12, 1,000 mcg capsule Take by mouth. Active Completed/Discontinued Medications Medication Drug Class(es) Dates Sig (Normalized) Sig (Original) dextromethorphan hydrobromide 1.5 mg/ml / pyrilamine maleate 1.5 mg/ml oral solution (2 sources) Uncompetitive D-fznvqh-Y-aspartat e Receptor Antagonist, Sigma-1 Agonist Start: 06-11-2023 take 10 mL by mouth every eight hours [place] DM 7.5-7.5 MG/5ML 10 mL Orally every 8 hours for 5 days May, Not-Taking {21 (ethinyl estradiol 0.035 MG / ethynodiol diacetate 1 MG Oral Tablet) / (inert ingredients 1 MG Oral Tablet) } Pack [Kelnor 1/35 28 Day] (2 sources) Progestin, Estrogen take 1 [...] Problem Classification Problem Date Documented Date Episodic/Chronic Benign neoplasm of uterus (2 sources) Uterine leiomyoma; Translations: [Leiomyoma of uterus, unspecified] 05-18-2024 Episodic Contraceptive and procreative management (1 source) Patient encounter status; Translations: [Encounter for fertility testing] 05-18-2024 Episodic Other endocrine disorders (1 source) Polycystic ovary syndrome; Translations: [Polycystic ovarian syndrome] 05-18-2024 Chronic Other female genital disorders (1 source) Abnormal uterine bleeding; Translations: [Abnormal uterine and vaginal bleeding, unspecified] 05-18-2024 Chronic Other female genital disorders (4 sources) Other specified noninflammatory disorders of vagina; Translations: [OTH SPEC NONINFLAMMATORY D/O VAGINA] Onset: 08-01-2022 Episodic Other screening for suspected conditions (not mental disorders or infectious disease) (5 sources) Encounter for screening for malignant neoplasm of cervix; Translations: [Patient encounter status] Onset: 03-05-2022 Episodic Other upper respiratory infections (4 sources) Streptococcal pharyngitis; Translations: [Acute upper respiratory infection, unspecified] Onset: 10-12-2021 Resolved: 10-12-2021 Episodic Past or Other Problems Problem Classification Problem Date Documented Date Episodic/Chronic Immunizations and screening for infectious disease (6 sources) Contact with and (suspected) exposure to other viral communicable diseases; Translations: [Encounter for screening for human papillomavirus (HPV)] Onset: 10-05-2021 Resolved: 10-12-2021 Episodic Unclassified (1 source) Contact with and (suspected) exposure to covid-19 Z20.822 Results Test Name Value Interpretation Reference Range Facility [facility] 01-24-2024 L Specimen: [id number] Received: 01/27/24 Status: AGNES Brown Num: [id number] Spec Type: Surgical Subm Dr: Jenny Alvarez Tissues: A Endometrium - Curettings (EMC) Procedures: HE/2, Gross/Micro L4 Age/ Patient Sex Location Account Attending Physician Barb Estrada 33/F [place] [id number] Jenny Alvarez SPEC NUM: [id number] RECD: 01/27/24 STATUS: AGNES BROWN NUM: [id number] LASHELL: 01/24/[address]: Jenny Alvarez ENTERED: 01/27/[address] [facility] [address]: Laurie,Lab SPEC TYPE: Surgical DEPT: [...] are performed supporting the above interpretation Specimen: [id number] Received: 01/27/24 Status: AGNES Brown Num: [id number] Spec Type: Surgical Subm Dr: Jenny Alvarez Tissues: A Endometrium - Curettings (EMC) Procedures: Felicia ADDISON/Micro L4 Patient: Barb Estrada [id number] (Continued) Specimen: [id number] Received: 01/27/24 (Continued) Signed (signature on file) Ani Sarah MD 01/28/24 1607 Specimen: [id number] Received: 01/27/24 Status: AGNES Brown Num: [id number] Spec Type: Surgical Subm Dr: Jenny Rubio: A Endometrium - Curettings (EMC) Procedures: Felicia ADDISON/Micro L4 Patient: Barb Estrada [id number] (Continued) Specimen: [id number] Received: 01/27/24 (Continued) CPT Codes 16695 Specimen: [id number] Received: 01/27/24 Status: AGNES Brown Num: [id number] Spec Type: Surgical Subm Dr: Jenny Alvarez Tissues: A Endometrium - Curettings (EMC) Procedures: HE/2, Gross/Micro L4 Patient: Barb Estrada [id number] (Continued) Signed (signature on file) Ani Sarah MD 01/28/24 1607 [facility] 11-12-2023 L Specimen: [id number] Received: 11/13/23 Status: AGNES Brown Num: [id number] Spec Type: Surgical Subm Dr: Jenny Alvarez Tissues: A Endometrium - Biopsy (EMB) Procedures: HE/2, Gross/Micro L4 Age/ Patient Sex Location Account Attending Physician Barb Estrada Juan 33/F [place] [id number] Jenny Alvarez SPEC NUM: [id number] RECD: 11/13/23 STATUS: AGNES BROWN NUM: [id number] LASHELL: 11/12/23- SUBM DR: Jenny Alvarez ENTERED: 11/13/[address] [facility] [address]: Laurie,Lab SPEC TYPE: Surgical DEPT: [...] in A1. Clinical history: Menorrhagia CPT Codes 24708 Specimen: [id number] Received: 11/13/23 Status: AGNES Brown Num: [id number] Spec Type: Surgical Subm Dr: Jenny Alvarez Tissues: A Endometrium - Biopsy (EMB) Procedures: Felicia ADDISON/Amanda L4 Patient: Barb Estrada [id number] (Continued) Signed (signature on file) Jazmin Andrews MD 11/14/23 1547 Normal [facility] Tahira Strepjagdish 06-24-2023 S. pyogenes Org specific cx Ql (Throat) Negative [employer] Other Quick Strep STYLIGHT [facility] [employer] Other COVID/FLU/RSV RT-PCRon 06-11 SARS-CoV-2 (COVID-19) RNA NATALIIA+probe Ql (Unsp spec) Negative [facility] [employer] Other COVID/FLU/RSV RT-PCR Negative [facility] [employer] Other CHLAMYDIA/GONOCOCCUS NATALIIA (SW AB/URINE/PAPon 08-03-2022 Chlamydia trachomatis, NATALIIA Negative Normal Negative [facility] Comment on above: Performed By: #### C T/NGNA #### [facility] [address] [place] [address] Dr. Anahy Sarah Neisseria gonorrhoeae, NATALIIA Negative Normal Negative [facility] Comment on above: Performed By: #### C T/NGNA #### [facility] [address] [place] [address] Dr. Anahy Sarah VAGINITIS/VAGINOSIS DNA PROB Omar 08-02-2022 Radha species Positive Abnormal Negative [facility] Comment on above: Performed By: #### V AGINT #### [facility] [address] [place] [address] Dr. Anahy Sarah Gardnerella vaginalis Negative Normal Negative [facility] Comment on above: Performed By: #### V AGINT #### [facility] [address] [place] [address] Dr. Anahy Sarah Trichomonas vaginalis Negative Normal Negative [facility] Comment on above: Performed By: #### V AGINT #### [facility] [address] [place] [address] Dr. Anahy Sarah CBC AUTO DIFFon 04-12-2022 BASO # 0.1 103/ul Normal 0.0-0.1 [facility] Comment on above: Performed By: #### C BC #### [facility] [address] [place] [address] Dr. Anahy Sarah Basophils/100 WBC (Bld) 0.9 % Normal 0.2-2.0 [facility] Comment on above: Performed By: #### C BC #### [facility] [address] [place] [address] Dr. Anahy Sarah EO # 0.1 103/ul Normal 0.0-0.7 [facility] Comment on above: Performed By: #### C BC #### [facility] [address] [place] [address] Dr. Anahy Sarah Eosinophils/100 WBC (Bld) 1.3 % Normal 0.9-7.0 [facility] Comment on above: Performed By: #### C BC #### [facility] [address] [place] [address] Dr. Anahy Sarah Erythrocyte distribution width (RBC) [Ratio] 12.6 % Normal 11.0-15.0 [facility] Comment on above: Performed By: #### C BC #### [facility] [address] [place] [address] Dr. Anahy Sarah Hematocrit (Bld) [Volume fraction] 35.5 % Critically low 36.0-48.0 [facility] Comment on above: Performed By: #### C BC #### [facility] [address] [place] [address] Dr. Anahy Sarah Hemoglobin (Bld) [Mass/Vol] 11.5 g/dL Critically low 12.0-16.0 [facility] Comment on above: Performed By: #### C BC #### [facility] [address] [place] [address] Dr. Anahy Sarah IG # 0.02 10e3/ul Normal 0.00-0.03 [facility] Comment on above: Performed By: #### C BC #### [facility] [address] [place] [address] Dr. Anahy Sarah IG % 0.2 % Normal 0.0-0.5 [facility] Comment on above: Performed By: #### C BC #### [facility] [address] [place] [address] Dr. Anahy Sarah LYMPH # 2.5 103/ul Normal 1.2-3.8 [facility] Comment on above: Performed By: #### C BC #### [facility] [address] [place] [address] Dr. Anahy Sarah Lymphocytes/100 WBC (Bld) 26.3 % Normal 20.5-60.0 [facility] Comment on above: Performed By: #### C BC #### [facility] [address] [place] [address] Dr. Anahy Sarah MANUAL DIFF REQ NO Normal [facility] Comment on above: Performed By: #### C BC #### [facility] [address] [place] [address] Dr. Anahy Sarah MCH (RBC) [Entitic mass] 28.8 pg Normal 26.7-34.0 [facility] Comment on above: Performed By: #### C BC #### [facility] [address] [place] [address] Dr. Anahy Sarah MCHC (RBC) [Mass/Vol] 32.4 g/dL Normal 29.9-35.2 [facility] Comment on above: Performed By: #### C BC #### [facility] [address] [place] [address] Dr. Anahy Sarah MCV (RBC) [Entitic vol] 88.8 fL Normal 81.0-99.0 [facility] Comment on above: Performed By: #### C BC #### [facility] [address] [place] [address] Dr. Anahy Sarah MONO # 0.7 103/ul Normal 0.3-0.8 [facility] Comment on above: Performed By: #### C BC #### [facility] [address] [place] [address] Dr. Anahy Sarah Monocytes/100 WBC (Bld) 7.1 % Normal 1.7-12.0 [facility] Comment on above: Performed By: #### C BC #### [facility] [address] [place] [address] Dr. Anahy Sarah NEUT # 6.0 103/ul Normal 1.4-6.5 [facility] Comment on above: Performed By: #### C BC #### [facility] [address] [address] [address] Anahy Sarah Neutrophils/100 WBC (Bld) 64.2 % Normal 43.0-75.0 [facility] Comment on above: Performed By: #### C BC #### [facility] [address] [address] [address] Anahy Sarah Platelet mean volume (Bld) [Entitic vol] 10.1 fL Normal 9.5-13.5 [facility] Comment on above: Performed By: #### C BC #### [facility] [address] [address] [address] Anahy Sarah PLT 287 103/ul Normal 150-450 [facility] Comment on above: Performed By: #### C BC #### [facility] [address] [place] [address] Dr. Anahy Sarah RBC 4.00 106/ul Critically low 4.20-5.40 [facility] Comment on above: Performed By: #### C BC #### [facility] [address] [address] [address] Anahy Sarah WBC 9.4 103/ul Normal 4.0-11.0 [facility] Comment on above: Performed By: #### C BC #### [facility] [address] [place] [address] Dr. Anahy Sarah GLYCOHEMOGLOBIN A1Con 2021 ADA RECOMMENDATION SEE BELOW Normal [facility] Comment on above: Result Comment: ADA RECOMMENDED LIMIT 4.0 - 6.0 ADA THERAPEUTIC TARGET < 7.0 ACTION SUGGESTED > 7.0 Performed By: #### A 1C #### [facility] [address] [address] [address] Anahy Sarah Glucose [Mass/Vol] 111 mg/dL Normal [facility] Comment on above: Performed By: #### A 1C #### [facility] [address] [place] [address] Dr. Anahy Sarah HbA1c (Bld) [Mass fraction] 5.5 % Normal 4.5-6.2 [facility] Comment on above: Performed By: #### A 1C #### [facility] [address] [address] [address] Anahy Sarah LIPID PROFILEon 04-12-2022 CHOL-HDL RATIO NORM SEE BELOW Normal [facility] Comment on above: Result Comment: 3.3 - 4.4 LOW RISK 4.4 - 7.1 AVERAGE RISK 7.1 - 11.0 MODERATE RISK >11.0 HIGH RISK Performed By: #### C MP, LIPID #### [facility] [address] [address] [address] Anahy Sarah Cholesterol [Mass/Vol] 168 mg/dL Normal <=200 [facility] Comment on above: Performed By: #### C MP, LIPID #### [facility] [address] [address] [address] Anahy Sarah Cholesterol in HDL [Mass/Vol] 47 mg/dL Normal 40-60 [facility] Comment on above: Performed By: #### C MP, LIPID #### [facility] [address] [address] [address] Anahy Sarah Cholesterol in LDL [Mass/Vol] 81.8 mg/dL Normal [facility] Comment on above: Performed By: #### C MP, LIPID #### [facility] [address] [address] [address] Anahy Sarah Cholesterol.total/Ch olesterol in HDL [Mass ratio] 3.6 {ratio} Normal [facility] Comment on above: Performed By: #### C MP, LIPID #### [facility] [address] [address] [address] Anahy Sarah HDL NORMAL > or = 60 mg/dl - LOW CARDIOVASCULAR RISK <40 mg/dl - HIGH CARDIOVASCULAR RISK Normal [facility] Comment on above: Performed By: #### C MP, LIPID #### [facility] [address] [address] [address] Anahy Sarah LDL CALC NORMAL SEE BELOW Normal [facility] Comment on above: Result Comment: <100 mg/dl OPTIMAL 100 - 129 mg/dl NEAR OR ABOVE OPTIMAL 130 - 159 mg/dl BORDERLINE HIGH 160 - 189 mg/dl HIGH >190 mg/dl VERY HIGH Performed By: #### C MP, LIPID #### [facility] [address] [address] [address] Anahy Sarah Triglyceride [Mass/Vol] 196 mg/dL Critically high <=150 [facility] Comment on above: Performed By: #### C MP, LIPID #### [facility] [address] [address] [address] Anahy Sarah VLDL CALC 39.2 mg/dL Normal [facility] Comment on above: Performed By: #### C MP, LIPID #### [facility] [address] [address] [address] Anahy Sarah PROF 14(COMP METB)on 022 Albumin [Mass/Vol] 3.5 g/dL Normal 3.4-5.0 [facility] Comment on above: Performed By: #### C MP, LIPID #### [facility] [address] [place] [address] Dr. Anahy Sarah Albumin/Globulin [Mass ratio] 0.9 {ratio} Normal [facility] Comment on above: Performed By: #### C MP, LIPID #### [facility] [address] [place] [address] Dr. Anahy Sarah ALP [Catalytic activity/Vol] 54 U/L Normal 46-116 [facility] Comment on above: Performed By: #### C MP, LIPID #### [facility] [address] [address] [address] Anahy Sarah ALT [Catalytic activity/Vol] 21 U/L Normal 14-59 [facility] Comment on above: Performed By: #### C MP, LIPID #### [facility] [address] [address] [address] Anahy Sarah Anion gap [Moles/Vol] 13.3 mmol/L Normal [facility] Comment on above: Performed By: #### C MP, LIPID #### [facility] [address] [address] [address] Anahy Sarah AST [Catalytic activity/Vol] 14 U/L Critically low 15-37 [facility] Comment on above: Performed By: #### C MP, LIPID #### [facility] [address] [address] [address] Anahy Sarah Bilirubin [Mass/Vol] 0.4 mg/dL Normal 0.2-1.0 [facility] Comment on above: Performed By: #### C MP, LIPID #### [facility] [address] [place] [address] Dr. Anahy Sarah Calcium [Mass/Vol] 8.5 mg/dL Normal 8.5-10.1 [facility] Comment on above: Performed By: #### C MP, LIPID #### [facility] [address] [place] [address] Dr. Anahy Sarah Chloride [Moles/Vol] 105 mmol/L Normal 98-107 [facility] Comment on above: Performed By: #### C MP, LIPID #### [facility] [address] [place] [address] Dr. Anahy Sarah CO2 [Moles/Vol] 23.4 mmol/L Normal 21.0-32.0 [facility] Comment on above: Performed By: #### C MP, LIPID #### [facility] [address] [place] [address] Dr. Anahy Sarah Creatinine [Mass/Vol] 0.74 mg/dL Normal 0.55-1.02 [facility] Comment on above: Performed By: #### C MP, LIPID #### [facility] [address] [place] [address] Dr. Anahy Sarah EGFR-AF SPANISH >60 Normal >=60 [facility] Comment on above: Performed By: #### C MP, LIPID #### [facility] [address] [place] [address] Dr. Anahy Sarah EGFR-NON AF SPANISH >60 Normal >=60 [facility] Comment on above: Performed By: #### C MP, LIPID #### [facility] [address] [place] [address] Dr. Anahy Sarah Globulin (S) [Mass/Vol] 3.7 g/dL Normal [facility] Comment on above: Performed By: #### C MP, LIPID #### [facility] [address] [address] [address] Anahy Sarah Glucose [Mass/Vol] 96 mg/dL Normal 74-106 [facility] Comment on above: Performed By: #### C MP, LIPID #### [facility] [address] [address] [address] Anahy Sarah Potassium [Moles/Vol] 3.7 mmol/L Normal 3.5-5.1 [facility] Comment on above: Performed By: #### C MP, LIPID #### [facility] [address] [address] [address] nAahy Sarah Protein [Mass/Vol] 7.2 g/dL Normal 6.4-8.2 [facility] Comment on above: Performed By: #### C MP, LIPID #### [facility] [address] [place] [address] Dr. Anahy Sarah Sodium [Moles/Vol] 138 mmol/L Normal 136-145 [facility] Comment on above: Performed By: #### C MP, LIPID #### [facility] [address] [place] [address] Dr. Anahy Sarah Urea nitrogen [Mass/Vol] 6.0 mg/dL Critically low 7.0-18.0 [facility] Comment on above: Performed By: #### C MP, LIPID #### [facility] [address] [place] [address] Dr. Anahy Sarah Urea nitrogen/Creatinine [Mass ratio] 8.1 mg/mg Normal [facility] Comment on above: Performed By: #### C MP, LIPID #### [facility] [address] [place] [address] Dr. Anahy Sarah PAP ACOG PANEL 2: 30 to 65on 03-09-2022 . . Normal [facility] Comment on above: Result Comment: Perf ormed at: WB Performed By: #### [id number] #### [facility] [address] [place] [address] Dr. nAahy Sarah Age Gdln ACOG Testing 30-65 [facility] Comment on above: Performed By: #### [id number] #### [facility] [address] [address] [address] Anahy Sarah DIAGNOSIS: Comment Normal [facility] Comment on above: Result Comment: NEGA TIVE FOR INTRAEPITHELIAL LESION OR MALIGNANCY. Performed at: WB Performed By: #### [id number] #### [facility] [address] [address] [address] Anahy Sarah HPV Aptima Negative Normal Negative [facility] Comment on above: Result Comment: This nucleic acid amplification test detects fourteen high-risk HPV types (16,18,31,33,35,39,45,51,52,56,58,59,66,68) without differentiation. Performed at: =G Performed By: #### [id number] #### [facility] [address] [place] [address] Dr. Anahy Sarah Methodology: Comment Normal [facility] Comment on above: Result Comment: This liquid based ThinPrep(R) pap test was screened with the use of an image guided system. Performed at: WB Performed By: #### [id number] #### [facility] [address] [place] [address] Dr. Anahy Sarah Note: Comment Normal [facility] Comment on above: Result Comment: The Pap smear is a screening test designed to aid in the detection of premalignant and malignant conditions of the uterine cervix. It is not a diagnostic procedure and should not be used as the sole means of detecting cervical cancer. Both false-positive and false-negative reports do occur. . Performed at: WB Performed By: #### [id number] #### [facility] [address] [address] [address] Anahy Sarah Performed by: Comment Normal [facility] Comment on above: Result Comment: Nayla Garcia, Cigarette Vendor (ASCP) Performed at: WB Performed By: #### [id number] #### [facility] [address] [address] [address] Anahy Sarah Specimen adequacy: Comment Normal [facility] Comment on above: Result Comment: Sati sfactory for evaluation. Endocervical and/or squamous metaplastic cells (endocervical component) are present. Performed at: WB Performed By: #### [id number] #### [facility] [address] [place] [address] Dr. Anahy BALDWIN Quick Testingon 2021 Result Negative [employer] Other Quick Fluon 10-12-2021 FLUAV Ab CF (S) [Titer] Negative [employer] Other FLUBV Ab CF (S) [Titer] Negative [employer] Other S. pyogenes Ag Ql (Throat)on 10-12-2021 S. pyogenes Org specific cx Ql (Throat) Positive [employer] Other Vital Signs Date Time Vital Sign Value Performing Clinician Facility 05-18-2024 08:55-0400 Body height 165.1 cm Melani Zaman MD Work Phone: [facility] 05-18-2024 08:55-0400 Body mass index (BMI) [Ratio] 40.6 kg/m2 Melani Zaman MD Work Phone: [facility] 05-18-2024 08:55-0400 Body weight 110.68 kg Melani Zaman MD Work Phone: [facility] 05-18-2024 08:55-0400 Diastolic blood pressure 89 mm[Hg] Melani Zaman MD Work Phone: [facility] 05-18-2024 08:55-0400 Heart rate 85 /min Melani Zaman MD Work Phone: [facility] 05-18-2024 08:55-0400 Systolic blood pressure 146 mm[Hg] Melani Zaman MD Work Phone: [facility] 06-24-2023 11:15-0500 Body height 167.64 cm Oly Reed Other [facility] Other 06-24-2023 11:15-0500 Body mass index (BMI) [Ratio] 38.73 kg/m2 Oly Reed Other [facility] Other 06-24-2023 11:15-0500 Body temperature 99.8 [degF] Oly Reed Other [facility] Other 06-24-2023 11:15-0500 Body weight 108.86 kg Oly Reed Other [facility] Other 06-24-2023 11:15-0500 Respiratory rate 19 /min Oly Reed Other [facility] Other 06-24-2023 11:15-0500 SaO2% (BldA) [Mass fraction] 98 % Oly Reed Other [facility] Other 06-11-2023 12:20-0500 Body height 167.64 cm Alice Tamez Other [facility] Other 06-11-2023 12:20-0500 Body mass index (BMI) [Ratio] 39.25 kg/m2 Alice Tamez Other [facility] Other 06-11-2023 12:20-0500 Body temperature 98.4 [degF] Alice Tamez Other [facility] Other 06-11-2023 12:20-0500 Body weight 110.32 kg Alice Tamez Other [facility] Other 06-11-2023 12:20-0500 Diastolic blood pressure 93 mm[Hg] Alice Tamez Other [facility] Other 06-11-2023 12:20-0500 Respiratory rate 18 /min Alice Tamez Other [facility] Other 06-11-2023 12:20-0500 SaO2% (BldA) [Mass fraction] 97 % Alice Tamez Other [facility] Other 06-11-2023 12:20-0500 Systolic blood pressure 144 mm[Hg] Alice Tamez Other [facility] Other 10-12-2021 10:20-0400 Body height 167.64 cm Alice Tamez Other [facility] Other 10-12-2021 10:20-0400 Body mass index (BMI) [Ratio] 38.73 kg/m2 Alice Tamez Other [facility] Other 10-12-2021 10:20-0400 Body temperature 98.3 [degF] Alice Tamez Other [facility] Other 10-12-2021 10:20-0400 Body weight 108.86 kg Alice Tamez Other [facility] Other 10-12-2021 10:20-0400 Respiratory rate 18 /min Alice Tamze Other [facility] Other 10-12-2021 10:20-0400 SaO2% (BldA) [Mass fraction] 97 % Alice Tamez Other [facility] Other Encounters Encounter Date Encounter Type Care Provider Facility Start: 05-18-2024 End: 05-18-2024 Patient encounter procedure Melani Zaman MD Work Phone: [facility] Comment on above: Uterine leiomyoma, u nspecified location (Primary Dx); PCOS (polycystic ovarian syndrome); Fertility testing; Screening for diabetes mellitus; Abnormal uterine bleeding Start: 03-12-2024 End: 03-12-2024 ambulatory KASSANDRA AICHHOLZ Not Available Start: 02-03-2024 End: 02-03-2024 ambulatory BENJI TERRI Not Available Start: 01-24-2024 End: 01-24-2024 ambulatory PHYSICIAN NO [facility] Work Phone: Start: 01-24-2024 End: 01-24-2024 Departed Referred PHYSICIAN NO [facility] Start: 01-07-2024 End: 01-07-2024 ambulatory JENNY KIM Not Available Start: 12-23-2023 End: 12-23-2023 ambulatory JENNY KIM Not Available Start: 11-25-2023 End: 11-25-2023 ambulatory JENNY KIM Not Available Start: 11-12-2023 End: 11-12-2023 Departed Referred PHYSICIAN NO [facility] Start: 11-12-2023 End: 11-12-2023 ambulatory PHYSICIAN NO [facility] Work Phone: Start: 10-14-2023 End: 10-14-2023 ambulatory JENNY KIM Not Available Start: 10-01-2023 End: 10-01-2023 ambulatory KASSANDRA AICHHOLZ Not Available Start: 08-22-2023 End: 08-22-2023 ambulatory KASSANDRA AICHHOLZ Not Available Start: 06-24-2023 End: 06-24-2023 ambulatory Oly Reed Other [facility] Other Start: 06-24-2023 Office outpatient vi sit 15 minutes Oly Reed [facility] Start: 06-11-2023 End: 06-11-2023 ambulatory Alice Tamez Other [facility] Other Start: 06-11-2023 Office outpatient vi sit 25 minutes Alice Tamez [facility] Start: 08-01-2022 End: 08-01-[address] JANET LANDON Facility:[facility] Start: 04-17-2022 Encounter for genera l adult medical examination without abnormal findings DR JANET LANDON [facility] Start: 04-12-2022 End: 04-13-[address] JANET LANDON Facility:[facility] Start: 04-12-2022 End: 04-13-2022 Encounter for general adult medical examination without abnormal findings DR JANET LANDON Facility:[facility] Start: 03-05-2022 End: 03-05-[address] JANET LANDON Facility:[facility] Start: 10-12-2021 End: 10-12-2021 ambulatory Alice Tamez Other [facility] Other Start: 10-12-2021 Office outpatient vi sit 15 minutes Alice Tamez [facility] Start: 10-05-2021 End: 10-06-[address] SHEILA LYONS Facility:[facility] Procedures Date Procedure Procedure Detail Performing Clinician Start: 04-16-2023 Microscopic observat ion [Identifier] in Cervix by Cyto stain Melani Zaman MD Work Phone: Plan of Treatment Date Care Activity Detail Author Start: 2041 Zoster Vaccines (1 o f 2) Zoster Vaccines (1 of 2) [facility] Start: 04-16-2026 Screening for malign ant neoplasm of cervix [facility] Start: 05-18-2024 End: 05-18-2025 CBC panel - Blood by Automated count CBC Lab Routine Abnormal uterine bleeding Expected: 05/18/2024 (Approximate), Expires: 05/18/2025 [facility] Work Phone: Comment on above: Expected: 05/18/2024 (Approximate), Expires: 05/18/2025 Start: 05-18-2024 End: 05-18-2025 Hemoglobin A1c/Hemoglobin.total in Blood Hemoglobin A1C Lab Routine Screening for diabetes mellitus Expected: 05/18/2024 (Approximate), Expires: 05/18/2025 [facility] Work Phone: Comment on above: Expected: 05/18/2024 (Approximate), Expires: 05/18/2025 Start: 05-18-2024 End: 05-18-2025 MR Pelvis WO and W contrast IV MR pelvis w and wo IV contrast Imaging Routine Uterine leiomyoma, unspecified location Expected: 05/18/2024, Expires: 05/18/2025 [facility] Work Phone: Comment on above: Expected: 05/18/2024 , Expires: 05/18/2025 Start: 05-18-2024 End: 05-18-2025 Mullerian inhibiting substance [Mass/volume] in Serum or Plasma Antimullerian Hormone (Amh) Lab Routine PCOS (polycystic ovarian syndrome) Expected: 05/18/2024 (Approximate), Expires: 05/18/2025 [facility] Service Area Work Phone: Comment on above: Expected: 05/18/2024 (Approximate), Expires: 05/18/2025 Start: 03-22-2024 COVID-19 Vaccine ( season) COVID-19 Vaccine ( season) [facility] Start: 12-30-2021 DTaP/Tdap/Td Vaccine s (2 - Td or Tdap) DTaP/Tdap/Td Vaccines (2 - Td or Tdap) [facility] Start: 02-19-2012 Screening for malign ant neoplasm of cervix HPV/Cotest [facility] Start: 2009 Hepatitis C screening Hepatitis C [facility] Start: 02-19-2004 Varicella vaccination Varicell a Vaccines (1 of 2 - 13+ 2-dose series) [facility] Start: 1997 Pneumococcal Vaccine : Pediatrics (0 to 5 Years) and At-Risk Patients (6 to 64 Years) (1 of 2 - PCV) Pneumococcal Vaccine: Pediatrics (0 to 5 Years) and At-Risk Patients (6 to 64 Years) (1 of 2 - PCV) [facility] Start: 02-19-1992 MMR Vaccines (1 of 1 - Standard series) MMR Vaccines (1 of 1 - Standard series) [facility] Start: 1991 HIV screening HIV Screening [facility] Start: 1991 Lipid panel Lipid Panel [facility] Start: 1991 Yearly Adult Physical Yearly Adult P [facility] Chromotubation ovidu ct w/materials Exploration Laparoscopy with Chromopertubation Intramural, submucous, and subserous leiomyoma of uterus [facility] Hysteroscopy diagnos tic separate procedure HYSTEROSCOPY, DIAGNOSTIC Intramural, submucous, and subserous leiomyoma of uterus [facility] Laps myomectomy exc 5/> myomas >250 grams MYOMECTOMY, LAPAROSCOPIC Intramural, submucous, and subserous leiomyoma of uterus [facility] Payers Date Payer Category Payer Self-pay 2022 [employer] Blue [employer] Managed Care [facility] [id number] 2022 Unknown [id number] 2019 Unknown [id number] 1991 Unknown [id number] [id number]. 593 1991 Unknown [id number] [id number]. 593 1991 Unknown [id number] [id number]. 593 1991 Unknown [id number] [id number]. 1259 1991 Unknown [id number] 2.16.840.1.803787.3.579.2. 9 1991 Unknown [id number] 2.16.840.1.023016.3.579.2. 9 1991 Unknown [id number] 2.16.840.1.531891.3.579.2. 9 1991 Unknown [id number] 2.16.840.1.533747.3.579.2. 1258 1991 Unknown [id number] 2.16.840.1.004549.3.579.2. 9 1991 Unknown [id number] 2.16.840.1.507035.3.579.2. 1258 1991 Unknown [id number] 2.16.840.1.428119.3.579.2. 9 1991 Unknown [id number] [id number]. 9 1959 Self-pay [id number] Unknown [id number] [id number]. 593 Social History Date Type Detail Facility Unknown if ever smoked [facility] [employer] Other Sex Assigned At Sex Assigned At Bir th [facility] Other Start: 11-13-2023 End: 05-18-2024 Tobacco smoking status NHIS Never smoked tobacco (finding) [facility] Start: 1990 Sex Assigned At Female [facility] Start: 05-18-2024 Tobacco use and exposure Smokeless tobacco non-user [facility] Work Phone: Start: 05-18-2024 Alcoholic beverage intake Current drinker of alcohol (finding) [facility] Work Phone: Start: 05-11-2024 Gender identity Identifies as female gender (finding) [facility] Work Phone: Start: 05-11-2024 Sexual orientation Heterosexual (finding) [facility] Work Phone: Start: 05-08-2024 End: 05-18-2024 Exposure to SARS-CoV-2 (event) Not sure [facility] History of Present illness Narrative 05-18-2024 Melani Zaman MD - 05/18/2024 9:00 AM EDT Note Date & Type Note Facility 05-18-2024 History of Present illness Narrative Images from the original note were not included. Visit Type: In Person NEW FERTILITY PATIENT VISIT Referred by: Dr. Alvarez Accompanied today by: Mother Barb Estrada is a 34 y.o. female who presents with Fibroids, heavy irregular periods Patient has been experiencing heavy menses since 2020. She noticed starting in 2020 she was having heavy but regular menses with OCPs. Then in 09/2023 started having irregular/heavy bleeding even on OCPs ([place])- bleeding x 2 weeks. She discontinued OCPs and got IUD in 11/2023, removed in 01/2024 due to worsened bleeding. Then in 01/24/[address] Jenny Alvarez she underwent LSC and HSC with EMB due to thickened EMS (18 mm) and reportedly path was normal. Dx LSC noted multifibroid uterus and [facility] referred the patient for further surgical intervention. Patient also diagnosed previously with PCOS. Have you had any concerns about your fertility treatments so far? What are you goals for today's visit? Referred from hat liner, how to fix irregular heavy bleeding and fibroids PRIOR EVALUATION / TREATMENT [facility] Pelvic Ultrasound: 12/25/2023 FINDINGS: UTERUS: Contains multiple myometrial masses suspected represent leiomyomas, please include a 6.0 cm, 5.9 cm, 3.2 cm, 1.9 cm and a 1.6 cm mass. The largest mass is suspected to contact the endometrial lining. Uterus size: 10.5 x 5.2 x 7.0 cm ENDOMETRIUM: Abnormally thickened. Endometrial thickness: 18 mm Prior Labs Hb 8.8 prior to iron supp (started in October 2023), then 03/18/2024 increased to 11.5 HbA1c 5.6% in 08/2023 OB Hx G0 [facility] HISTORY Have you ever been diagnosed with a sexually transmitted disease? No Please select all that are applicable: Have you ever had Pelvic Inflammatory Disease? No Have you had an abnormal PAP smear? No Date & Result of last PAP smear: 03/2023 normal per patient Have you ever had an abnormal Mammogram? No Date & result of your last mammogram: never Do you have pelvic pain? No How many times per week do you have intercourse? Do you have pain with intercourse? No Do you use lubricants with intercourse? Do you have pain with bowel movements? No Do you have pain with a full bladder? No MENSTRUAL HISTORY LMP: Bled every day of March, stopped early April, then 05/17/2024 Menarche: 5th grade Contraception: none Cycle length: irregular Describe your bleeding: Heavy Dysmenorrhea: Yes ENDOCRINE/INFERTILITY HISTORY Duration of infertility: Not applicable Coital Activity/week: Nipple Discharge: No Vision changes: No Headaches: No Excess hair growth: No Excessive hair loss: No Acne: Yes Oily skin: Yes Recent weight change Weight gain: No Weight loss: No Exercise more than 3 times a week: No PMH Past Medical History: Diagnosis Date Anemia Asthma Fibroids Heavy menstrual period Insulin resistance MEDICATIONS Current Outpatient Medications on File Prior to Visit Medication Sig Dispense Refill albuterol 90 mcg/actuation inhaler Inhale 2 puffs every 6 hours if needed. cyanocobalamin, vitamin B-12, 1,000 mcg capsule Take by mouth. ferrous sulfate 325 (65 Fe) MG EC tablet Take 65 mg by mouth 3 times daily (morning, midday, late afternoon). Do not crush, chew, or split. metFORMIN XR 500 mg 24 hr tablet TAKE 1 TABLET (500 MG) BY MOUTH IN THE EVENING. TAKE WITH MEALS DO NOT CRUSH, CHEW, OR SPLIT. montelukast (Singulair) 10 mg tablet Take 1 tablet (10 mg) by mouth once daily at bedtime. No current facility-administered medications on file prior to visit. PSH Past Surgical History: Procedure Laterality Date CYST REMOVAL In middle school DILATION AND CURETTAGE OF UTERUS 01/24/2024 Laparoscopy and hysteroscopy with EMB in 01/2024 PSYCH HISTORY Have you ever been diagnosed with a mental health Issue? No Have you ever been hospitalized for a mental health disorder? 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 No Do you have a history of domestic violence? No Do you feel safe at home? Yes Do you have a history of any negative sexual experience such as incest or rape? No FAMILY HISTORY Family History Problem Relation Name Age of Onset Ovarian cancer Maternal Grandmother CANCER HISTORY Breast: No Ovarian: Diagnosed in 40s, Grandmother Colon: No Endometrial: No FAMILY VTE HISTORY Family History of Blood Clots: No GENETIC HISTORY Ethnic Background Patient: Bi racial, and white Genetic Disease in Family Patient: No Defects in Family Patient: No Genetic screening performed previously: none BMI: BMI Readings from Last 1 Encounters: 05/18/24 40.60 kg/m VITALS: BP 146/89 (BP Location: Right arm, Patient Position: Sitting, BP Cuff Size: Adult) Pulse 85 Ht 1.651 m (5' 5 ) Wt 111 kg (244 lb) LMP 05/17/2024 (Exact Date) BMI 40.60 kg/m ASSESSMENT Barb Estrada is a 34 y.o. female, with AUB-L, anemia, and PCOS with desire for surgical management of uterine fibroids that preserves fertility. Plan Laparoscopic myomectomy with possible mini-laparotomy, chromopertubation, and diagnostic hysteroscopy Counseling: The patient's history and relevant imaging were discussed at length, and all questions were answered. The patient was counseled that fibroids commonly occur in women of reproductive age, and that there is an increased prevalence as women age. The patient was counseled that fibroids may continue to grow until menopause, at which point they may or may not shrink. Although the vast majority of uterine fibroids are benign, there is a small chance (estimated 1/250 - 07/999) that a malignancy could be present. Risks/benefits/alternatives and details of various treatment options were discussed including observation, medical management, and surgical management. Surgical decisions depend on the severity of symptoms and the degree to which daily life is impacted. Surgical intervention may or may not alleviate symptoms fully. Orders Placed This Encounter Procedures MR pelvis w and wo IV contrast Antimullerian Hormone (Amh) Hemoglobin A1C CBC Case request placed for above procedure Melani Zaman 05/18/2024 9:02 AM documented in this encounter [facility] Work Phone: Evaluation note 06-24-2023 Note Date & Type [...] no improvement in 2 to 3 days [facility] Other Evaluation note 06-11-2023 Note Date & [...] and rest, Tylenol as directed, rx of [place] and prednisone, OTC Flonase, cool mist humidifier, [...] treatment plan. Patient left in stable condition [facility] Other Evaluation note 10-12-2021 Note Date & [...] Patient care instructions given in writting by [facility] Care At Home document [facility] Other Evaluation note Note Date & Type Note Facility Evaluation note No assessment information [facility] Work Phone: Evaluation note Note Date & Type Note Facility Evaluation note Diagnosis Uterine leiomyoma, unspecified location- Primary PCOS (polycystic ovarian syndrome) Polycystic ovaries Fertility testing Screening for diabetes mellitus Abnormal uterine bleeding Unspecified disorder of menstruation and other abnormal bleeding from female genital tract documented in this encounter [facility] Work Phone: History general Narrative - Reported Note Date & Type Note Facility History general Narrative - Reported Type Medical History asthma Surgical History cyst removal 2004 Hospitalization History See Above Hospitalization History covid 2020 [facility] Other Summary Purpose Family History Relationship Condition Age at Onset Recorded Date/T boubacar father Hypertension Unknown Advance Directives No Advanced Directives Records FoundNo Advanced Directives Records FoundNo Advanced Directives Records Found Additional Source Comments REASON FOR VISIT (unrecogniz ed section and content) Reason Comments [facility] INFORMATION SOURCE (unrecogn ized section and content) DATE CREATED AUTHOR 08/03/2022 [facility] DATE CREATED AUTHOR AUTHOR'S ORGANIZ ATION 02/03/2024 [facility] DATE CREATED AUTHOR AUTHOR'S ORGANIZ ATION 03/14/2024 [facility] EPIC Care Teams (unrecognized sec tion and content) Team Status: Active Member Role Status Dates PHYSICIAN NO FAMILY Primary Care Provider Active Team Status: Inactive Member Role Status Dates PHYSICIAN NO FAMILY Primary Care Provider Active Start: November 12, 2023 End: November 12, 2023 Jenny Kim Attending Provider Active Start: Ap 2023 End: November 12, 2023 Team Status: Inactive Member Role Status Dates PHYSICIAN NO FAMILY Primary Care Provider Active Start: November 12, 2023 End: November 12, 2023 Jenny Alvarez , DO Attending Provider Active Start : November 12, 2023 End: November 12, 2023 Team Status: Inactive Member Role Status Dates PHYSICIAN NO FAMILY Primary Care Provider Active Start: January 24, 2024 End: January 24, 2024 Jenny Kim , DO Attending Provider Active Start : January 24, 2024 End: January 24, 2024 Senior Engineering Technician Relationship Specialty Start Date End Date Cathy Wood LPN Licensed Practical Nurse 05/18/24 Goals (unrecognized section and content) Goals may [...] BE BASED ON THE PRIMARY CLINICAL RECORDS. [employer] provides no warranty or guarantee of the accuracy or completeness of information in this document.
--- NOTE | 2024-06-02 12:18 | ED_ITS ---
HPI HPI - General Adult General Chief complaint: Neck Pain/Injury Stated complaint: NECK PAIN Time Seen by Provider: 06/02/24 09:39 Source: patient Mode of arrival: walk-in History of Present Illness HPI narrative: Patient presents ED complaining of neck pain. She said she felt like she slept wrong on it the other night and it still been bothering her. She now has tenderness with moving to the right and left but worse when looking to the right. She said the pain is sort of in the middle but seems deeper in and feels like her neck is stiff. She has worse pain when tipping her head back and it relieves more when looking forward. No trauma no fall no lifting heavy patients or any other injury. Patient has never had neck issues in the past. She denies any weakness numbness or tingling in her upper extremities. No fevers. No vision changes no headache no nausea vomiting. No other complaints at this time no signs of meningitis. Related Data Home Medications ?Medication ?Instructions ?Recorded ?Confirmed albuterol sulfate 90 mcg/actuation 2 inh inhalation Q6H PRN shortness 01/08/24 01/24/24 breath activated powder inhaler of breath or wheezing cyanocobalamin (vitamin B-12) 1,000 mcg PO DAILY 01/08/24 01/24/24 1,000 mcg capsule ferrous sulfate 325 mg (65 mg 325 mg PO BID 01/08/24 01/24/24 iron) tablet (Feosol) metformin 500 mg tablet 500 mg PO DAILY 01/17/24 01/24/24 Previous Rx's ?Medication ?Instructions ?Recorded azithromycin 500 mg tablet See Rx Instructions PO .COMPLEX #6 01/17/24 tabs hydrocodone 5 mg-acetaminophen 325 1 tab PO Q4H PRN pain 4 days #16 01/24/24 mg tablet tabs ibuprofen 800 mg tablet 800 mg PO Q8H PRN pain 14 days #40 01/24/24 tabs methylprednisolone 4 mg tablets in 4 mg PO DAILY #21 ea 06/02/24 a dose pack (Medrol (Tyler)) Allergies Allergy/AdvReac Type Severity Reaction Status Date / Time cat hair extract AdvReac Severe Unknown Uncoded 01/08/24 07:34 Opioid HPI Opioid Management Most Recent Opioid Data: Last Pain Scale 3 01/24/24 14:41 01/24/24 Review of Systems ROS Status of ROS 10 or more systems reviewed and unremark able except as noted in history and below [facility] Medical History (Updated 06/02/24 @ 09:53 by Lizet Mendoza DO) Yeast infection ?B37.9 - Candidiasis, unspecified (ICD-10) Sinus tachycardia ?R00.0 - Tachycardia, unspecified (ICD-10) Fibroids ?D21.9 - Benign neoplasm of connective and other soft tissue, unspecified (ICD-10) Insulin resistance ?E88.819 - Insulin resistance, unspecified (ICD-10) Iron deficiency anemia ?D50.9 - Iron deficiency anemia, unspecified (ICD-10) Hypertriglyceridemia ?E78.1 - Pure hyperglyceridemia (ICD-10) Mild intermittent asthma ?J45.20 - Mild intermittent asthma, uncomplicated (ICD-10) COVID-19 ?U07.1 - COVID-19 (ICD-10) Menorrhagia ?N92.0 - Excessive and frequent menstruation with regular cycle (ICD-10) Uterine leiomyoma ?D25.9 - Leiomyoma of uterus, unspecified (ICD-10) Thickened endometrium ?R93.89 - Abnormal findings on diagnostic imaging of other specified body structures (ICD-10) Surgical History (Updated 01/08/24 @ 07:32 by Ade Suero RN) H/O excision of ganglion cyst ?Z98.890 - Other specified postprocedural states (ICD-10) Family History (Updated 01/08/24 @ 07:34 by Ade Suero, RN) Other Emphysema of lung Family history of cancer Family history of hypertension Legionnaires' disease Social History (Updated 01/08/24 @ 14:38 by Ade Suero, RN) Within the past year, how often did you have a drink containing alcohol: monthly or less Smoking status: Never smoker Second hand tobacco smoke exposure: No Non-prescribed substance use: denies use 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 Respiratory: Lungs CTA, respirations non labored. Extremities: no deformity, no trauma. 5 out of 5 muscle strength x 4 extremities. No weakened lathe turner strength. Normal radial pulses bilaterally. Normal sensation bilaterally Neurological: oriented x 4, LOC appropriate for age. Mild tenderness to palpation in the paraspinal muscles on the C-spine, worse on the right. Decreased range of motion worse when looking towards the right due to pain and worse with extension of the cervical spine due to pain. No signs of meningitis on exam. Constitutional Vital Signs, click to edit/add: Last Vital Signs Temp 98.0 F 06/02/24 09:41 Pulse 88 06/02/24 10:20 Resp 18 06/02/24 10:20 BP 136/88 06/02/24 10:20 Pulse Ox 98 06/02/24 10:20 O2 Del Method Room Air 06/02/24 09:41 Course Vital Signs Vital signs: Vital Signs Temperature 98.0 F 06/02/24 09:41 Pulse Rate 97 H 06/02/24 09:41 Respiratory Rate 18 06/02/24 09:41 Blood Pressure 146/97 H 06/02/24 09:41 Pulse Oximetry 100 06/02/24 09:41 Oxygen Delivery Method Room Air 06/02/24 09:41 Temperature 98.0 F 06/02/24 09:41 Pulse Rate 88 06/02/24 10:20 Respiratory Rate 18 06/02/24 10:20 Blood Pressure 136/88 06/02/24 10:20 Pulse Oximetry 98 06/02/24 10:20 Oxygen Delivery Method Room Air 06/02/24 09:41 Medical Decision Making MDM Narrative Medical decision making narrative: Most likely a musculoskeletal issue from sleeping wrong the other night. Patient did try some anti-inflammatories at home which did not seem to be helping. She also took a muscle relaxer which did not seem to help. At this point I will send her home with a steroid taper. She is not diabetic. Continue Tylenol Motrin and muscle relaxer for pain. Take the steroids as directed. Follow-up with chiropractor or primary doctor. Patient may need PT or an MRI in the future if this is not improving. Patient is comfortable with care plan for home. Differential Diagnosis Differential Diagnosis: Cervical sprain strain cervical radiculopathy Discharge Plan Discharge Chief Complaint: Neck Pain/Injury Clinical Impression: Cervical radiculopathy, Strain of neck muscle Patient Disposition: Home, Self-Care Time of Disposition Decision: 09:53 Condition: Good Mode of Transportation: Private Vehicle Prescriptions / Home Meds: New methylprednisolone [Medrol (Tyler)] 4 mg tablets,dose pack 4 mg PO DAILY Qty: 21 0RF No Action albuterol sulfate 90 mcg/actuation aerosol powdr breath activated 2 inh inhalation Q6H PRN (Reason: shortness of breath or wheezing) cyanocobalamin (vitamin B-12) 1,000 mcg capsule 1,000 mcg PO DAILY ferrous sulfate [Feosol] 325 mg (65 mg iron) tablet 325 mg PO BID metformin 500 mg tablet 500 mg PO DAILY azithromycin 500 mg tablet See Rx Instructions .ROUTE .COMPLEX Qty: 6 0RF Rx Instructions: For 250 mg dose pack: take 500 mg today (day 1), then 250 mg for 4 days (days 2-5) ibuprofen 800 mg tablet 800 mg PO Q8H PRN (Reason: pain) 14 Days Qty: 40 0RF hydrocodone-acetaminophen 5-325 mg tablet 1 tab PO Q4H PRN (Reason: pain) 4 Days Qty: 16 0RF Print Language: Syriac Instructions: Cervical Strain (DC) Referrals: Lucinda Rodriguez PRESCRIPTION BENEFIT SPECIALIST [Primary Care Provider] - 1 week Discharge Date/Time: 06/02/24 10:43
== END 2024-06-02 10:43 | disposition home or self-care (01) ==
PROVIDERS: Emergency Provider Emergency Medicine; PCP Nurse Practitioner
DX: M54.12 Radiculopathy, cervical region (principal); S16.1XXA Strain of muscle, fascia and tendon at neck level, initial encounter; X58.XXXA Exposure to other specified factors, initial encounter
CPT/HCPCS: 96372; 99284; J1885; J2360

== ENCOUNTER 2024-09-23 19:49 | Outpatient (REF) | payer BC, SELFPAY ==
--- OUTSIDE RECORDS SUMMARY | 2024-09-23 19:52 | XMS_ITS | CCD ---
Author Organization [facility] Care Team Providers Care Tufter Hand Name Role Phone Alice Tamez Unavailable DIPESH, [...] FAMILY, PHYSICIAN Primary Care Provider Unava ilable Abel Alvarez Attending Provider DO Abel Alvarez Attending Provider Abel Alvarez Attending Unavailable NO FAMILY, PHYSICIAN Primary Care Unavailable Aebl Alvarez Admitting Unavailable NO FAMILY, PHYSICIAN Primary Care Unavailable Abel Alvarez Admitting Unavailable Abel Alvarez Attending Unavailable Cathy Wood LPN Unavailable Unavailab willie Rodriguez ARMATURE WINDER REPAIR-POWER AND RECOVERY SHIFT ENGINEER, Lucinda Bradley Primary Care Provider Marisol WELCH, Katlyn Cabello Unavailable Casandra WELCH, Chet Primary Care Provider Jennifer CONTINUOUS PROCESS COFFEE ROASTER, Lucinda Unavailable Jennifer CONTINUOUS PROCESS COFFEE ROASTER, Lucinda Unavailable MELANI ZAMAN Referring Unavailable LUCINDA RODRIGUEZ Primary Care Unavailable MELANI ZAMAN Admitting Unavailable MELANI ZAMAN Attending Unavailable MELANI ZAMAN Admitting Unavailable MELANI ZAMAN Attending Unavailable [facility] Primary Care Unavailable AICJazminHOLDavid, LUCINDA Attending Unavailable AICJazminHOLDavid, LUCINDA Attending Unavailable KIM, ABEL Attending Unavailable KIM, ABEL Attending Unavailable KIM, ABEL Attending Unavailable KIM, ABEL Attending Unavailable KIM, ABEL Attending Unavailable SHAMA ASH Attending Unavailable AICHOLDavid, LUCINDA Attending Unavailable Cathy Wood LPN Unavailable Unavailab MELANI Baez Attending Unavailable [facility]A Primary Care Unavailable DARLENE JULIEN Attending Unavailable ADRIANAOLEGARIO, LUCINDA CORA Primary Care Unavailable DARLENE JULIEN Attending Unavailable MELANI ZAMAN Referring Unavailable [facility] Primary Care Unavailable MELANI ZAMAN [facility]ending [facility] Primary Care Unavailable DARLENE JULIEN Attending [facility]available [facility] Primary Care Unavailable MELANI ZAMAN Attending Unavailable [facility] Primary Care Unavailable Allergies Allergy Classification Reported Allergen(s) Allergy Type Date of Onset Reaction(s) Facility (14 sources) Cat Hair Extract Propensity to adverse reactions 4 [facility] Medications Current Medications Medication Drug Class(es) Dates Sig (Normalized) Sig (Original) [id number] 200 actuat albuterol 0.09 mg/actuat metered dose inhaler (20 sources) beta2-Adrenergic Agonist Start: 08-22-2023 take 2 puff(s) by inhalation every six hours albuterol 90 mcg/actuation inhaler Inhale 2 puffs every 6 hours if needed. 08/22/2023 Active Start: 08-22-2023 take 2 puff(s) by in halation every six hours for wheezing albuterol HFA 90 mcg/act inhaler Indications: Mild intermittent asthma, unspecified whether complicated ([facility]) Inhale 2 puffs every 6 (six) hours if needed for wheezing or shortness of breath 18 g 08/22/2023 Active calcium chloride 0.0014 meq/ml / potassium chloride 0.004 meq/ml / sodium chloride 0.103 meq/ml / sodium lactate 0.028 meq/ml injectable solution (1 source) Start: 08-21-2024 End: 08-21-2024 take 100 mL intravenously every hour 100 mL/hr, intravenous, Continuous, Starting on Sat08/21/24 at 1430, For 2 hours, Recovery (only) 2 ml droperidol 2.5 mg/ml injection (1 source) Dopamine-2 Receptor Antagonist Start: 08-21-2024 0.625 mg, intravenous, Once as needed, nausea/vomiting, second line, Starting on Sat08/21/24 at 1413, For 1 dose, Recovery (only), Monitor QTc while on therapy (2 lead monitoring) DO NOT GIVE IF PATIENT HAS PARKINSON'S DISEASE. Ethinyl Estradiol / ethynodiol (3 sources) Progestin, Estrogen Start: 09-15-2024 End: 09-15-2025 ethynodiol diac-eth estradioL (Kelnor 1/35, 28,) 1-35 mg-mcg tablet Indications: Uses control Take 1 tablet by mouth once daily. 28 tablet 2 09/15/2024 09/15/2025 Active take 1 tablet by connie th every twenty-four hours Kelnor 1/35 1-35 MG-MCG 1 tablet Orally Once a day Not-Taking take 1 tablet by connie th every twenty-four hours Kelnor 1/35 1-35 MG-MCG 1 tablet Orally Once a day Active Ethinyl Estradiol / norgestimate (5 sources) Progestin, Estrogen Start: 07-30-2024 End: 07-30-2025 norgestimate-ethinyl estradiol (Ortho-Cyclen) 0.25-35 MG-MCG tablet Take 1 tablet by mouth in the morning. 07/30/2024 07/30/2025 Active Start: 07-30-2024 End: 07-30-2025 take 1 tablet by mouth once daily norgestimate-ethinyl estradiol (Ortho-Cyclen) 0.25-35 mg-mcg tablet Indications: Female infertility Take 1 tablet by mouth once daily. Take active pills only as directed per provider 28 tablet 2 07/30/2024 07/30/2025 Active ferrous sulfate 325 mg oral tablet (18 sources) Start: 09-07-2024 End: 12-06-2024 take 1 tablet by mouth in the morning ferrous sulfate 325 (65 Fe) MG tablet Indications: Iron deficiency anemia, unspecified iron deficiency anemia type Take 1 tablet (325 mg) by mouth in the morning and 1 tablet (325 mg) in the evening. Take before meals. Take with food.. 180 tablet 09/07/2024 12/06/2024 Active Start: 03-09-2024 End: 06-07-2024 take 1 tablet by mouth in the morning Iron, Ferrous Sulfate, 325 (65 Fe) MG tablet Indications: Iron deficiency anemia, unspecified iron deficiency anemia type Take 325 mg by mouth in the morning and 325 mg in the evening. Take with meals. 180 tablet 03/09/2024 06/07/2024 Active take 1 tablet by connie th three times daily ferrous sulfate 325 (65 Fe) MG EC tablet Take 65 mg by mouth 3 times daily (morning, midday, late afternoon). Do not crush, chew, or split. Active 1 ml hydrALAZINE hydrochloride 20 mg/ml injection (1 source) Arteriolar Vasodilator Start: 08-21-2024 5 mg, intravenous, Administer over 2 Minutes, Every 30 min PRN, systolic blood pressure greater than 180 mmHg and heart rate less than 60 BPM, Starting on Sat08/21/24 at 1413, For 2 doses, Recovery (only) 0.5 ml HYDROmorphone hydrochloride 1 mg/ml prefilled syringe (4 sources) Opioid Agonist Start: 08-21-2024 0.5 mg, intrav enous, Every 5 min PRN, pain severe (7-10), first line, Starting on Sat08/21/24 at 1413, Recovery (only), Max total of 4 mg regardless of dose. Start: 08-21-2024 0.25 mg, intra venous, Every 5 min PRN, pain moderate (4-6), first line, Starting on Sat08/21/24 at 1413, Recovery (only), Max total of 4 mg regardless of dose. Start: 06-26-2024 0.5 mg, intrav enous, Every 5 min PRN, pain severe (7-10), first line, Starting on Sat06/26/24 at 1251, Recovery (only), Max total of 4 mg regardless of dose. Start: 06-26-2024 0.2 mg, intrav enous, Every 5 min PRN, pain moderate (4-6), first line, Starting on Sat06/26/24 at 1251, Recovery (only), Max total of 4 mg regardless of dose. 08/10 (3 sources) 08/10 No t-Taking 08/10 Ac tive Meperidine (1 source) Opioid Agonist Start: 06-26-2024 12.5 mg, intravenous, Every 10 min PRN, shivering, Starting on Sat06/26/24 at 1251, Recovery (only) 24 hr metFORMIN hydrochloride 500 mg extended release oral tablet (20 sources) Biguanide Start: 01-20-2024 End: 01-19-2025 take 1 tablet by mouth every twenty-four hours at mealtime metFORMIN XR (Glucophage-XR) 500 MG 24 hr tablet Indications: Encounter for weight management Take 1 tablet (500 mg) by mouth in the evening. Take with meals Do not crush, chew, or split. 30 tablet 01/20/2024 01/19/2025 Active montelukast 10 mg oral tablet (20 sources) Leukotriene Receptor Antagonist Start: 02-20-2024 End: 11-11-2024 take 1 tablet by mouth once daily at bedtime montelukast (Singulair) 10 mg tablet Take 1 tablet (10 mg) by mouth once daily at bedtime. 02/20/2024 Active Start: 06-11-2023 take 1 tablet by connie th every twenty-four hours Montelukast Sodium 10 MG 1 tablet Orally Once a day for 30 day(s) May, Active 2 ml ondansetron 2 mg/ml injection (6 sources) Serotonin-3 Receptor Antagonist Start: 08-21-2024 4 mg, intravenous, O nce as needed, nausea/vomiting, first line, Starting on Sat08/21/24 at 1413, For 1 dose, Recovery (only), When administering via IV Push, administer over 3-5 minutes. Start: 08-21-2024 End: 09-14-2024 take 1 tablet by mouth every six hours for nausea ondansetron (Zofran) 4 mg tablet Indications: Post-operative state Take 1 tablet (4 mg) by mouth every 6 hours if needed for nausea for up to 20 doses. 20 tablet 08/21/2024 09/14/2024 Discontinued (Therapy completed) Start: 06-26-2024 End: 07-07-2024 take 1 tablet by mouth every six hours for nausea ondansetron (Zofran) 4 mg tablet Indications: Post-operative state Take 1 tablet (4 mg) by mouth every 6 hours if needed for nausea for up to 20 doses. 20 tablet 06/26/2024 07/07/2024 Discontinued (Therapy completed) Start: 06-26-2024 4 mg, intraven ous, Once as needed, nausea/vomiting, first line, Starting on Sat06/26/24 at 1251, For 1 dose, Recovery (only), When administering via IV Push, administer over 3-5 minutes. oxyCODONE hydrochloride 5 mg oral tablet (4 sources) Opioid Agonist Start: 08-21-2024 5 mg, oral, Ev gavino 15 min PRN, pain mild (1-3), first line, pain mild (1-3), second line, Starting on Sat08/21/24 at 1413, For 2 doses, Recovery (only), When able to take oral medications., If ordered PRN for pain, nurse is permitted to administer this medication for higher pain scores based on patient preference? Yes Start: 06-26-2024 End: 07-07-2024 take 1 tablet by mouth every six hours for pain oxyCODONE (Roxicodone) 5 mg immediate release tablet Indications: Post-operative state Take 1 tablet (5 mg) by mouth every 6 hours if needed for severe pain (7 - 10) for up to 10 doses. 10 tablet 06/26/2024 07/07/2024 Discontinued (Therapy completed) Start: 06-26-2024 take 1 tablet by connie th every four hours as needed 5 mg, oral, Every 4 hours PRN, pain mild (1-3), first line, Starting on Sat06/26/24 at 1251, Recovery (only), When able to take oral medications., If ordered PRN for pain, nurse is permitted to administer this medication for higher pain scores based on patient preference? Yes oxygen (O2) therapy (2 sources) Start: 08-21-2024 inhalation, Co ntinuous PRN - O2/gases, other, Starting on Sat08/21/24 at 1413, Recovery (only), Titrate to nasal cannula., Device: Simple Face Mask, Rate in Liters per minute: 6 LPM, Keep O2 Sat Above: 92% Start: 06-26-2024 inhalation, Co ntinuous - 02/gases, First dose on Sat06/26/24 at 1315, Recovery (only), Device: Nasal Cannula, Rate in liters per minute: 3 LPM, Keep O2 Sat Above: 92% predniSONE 20 mg oral tablet (3 sources) Start: 06-11-2023 take 1 tablet by mouth every twelve hours predniSONE 20 MG 1 tablet Orally bid for 5 day(s) Jun, Active prochlorperazine 5 mg/ml injectable solution (1 source) Phenothiazine Start: 08-21-2024 5 mg, intravenous, Once as needed, nausea/vomiting, third line, persistent post-op nausea/vomiting, Starting on Sat08/21/24 at 1413, For 1 dose, Recovery (only), DO NOT GIVE IF THE PATIENT HAS PARKINSON'S DISEASE. promethazine (Phenergan) 6.25 mg in sodium chloride 0.9% 50 mL IV (1 source) Start: 06-26-2024 6.25 mg, intravenous, Administer over 15 Minutes, Once as needed, Nausea/vomiting, second line, Starting on Sat06/26/24 at 1251, For 1 dose, Recovery (only) vitamin b12 1 mg oral capsule (20 sources) Vitamin B12 cyanocobalamin, vitamin B-12, 1,000 mcg capsule Take by mouth. Active Completed/Discontinued Medications Medication Drug Class(es) Dates Sig (Normalized) Sig (Original) acetaminophen 325 mg oral tablet (7 sources) Start: 08-21-2024 End: 09-14-2024 take 2 tablets by mouth every six hours for pain acetaminophen (Tylenol) 325 mg tablet Indications: Post-operative state Take 2 tablets (650 mg) by mouth every 6 hours if needed for mild pain (1 - 3) for up to 20 doses. 20 tablet 08/21/2024 09/14/2024 Discontinued (Therapy completed) Start: 08-21-2024 End: 08-21-2024 take 975 mg by mouth once as needed for pain 975 mg, oral, Once, On Sat08/21/24 at 1245, For 1 dose, Preprocedure, If ordered PRN for pain, nurse is permitted to administer this medication for higher pain scores based on patient preference? Yes Start: 06-26-2024 End: 07-07-2024 take 2 tablets by mouth every six hours for pain acetaminophen (Tylenol) 325 mg tablet Indications: Post-operative state Take 2 tablets (650 mg) by mouth every 6 hours if needed for mild pain (1 - 3) for up to 20 doses. 20 tablet 06/26/2024 07/07/2024 Discontinued (Therapy completed) Start: 06-26-2024 End: 06-26-2024 take 1 tablet by mouth once as needed for pain 650 mg, oral, Once, On Sat06/26/24 at 1345, For 1 dose, Administer tablet or oral liquid per patient preference., If ordered PRN for pain, nurse is permitted to administer this medication for higher pain scores based on patient preference? Yes Start: 06-26-2024 End: 06-26-2024 take 975 mg by mouth once as needed for pain 975 mg, oral, Once, On 06/26/24 at 0630, For 1 dose, Preprocedure, If ordered PRN for pain, nurse is permitted to administer this medication for higher pain scores based on patient preference? Yes celecoxib 200 mg oral capsule (2 sources) Nonsteroidal Anti-inflammatory Drug Start: 08-21-2024 End: 08-21-2024 take 1 capsule by mouth once 400 mg, oral, Once, On 08/21/24 at 1245, For 1 dose, Preprocedure, Capsules may be opened and sprinkled on a spoonful of cold or room temperature applesauce. Start: 06-26-2024 End: 06-26-2024 take 1 capsule by mouth once 400 mg, oral, Once, On Fr i 06/26/24 at 0630, For 1 dose, Preprocedure, Capsules may be opened and sprinkled on a spoonful of cold or room temperature applesauce. dextromethorphan hydrobromide 1.5 mg/ml / pyrilamine maleate 1.5 mg/ml oral solution (2 sources) Uncompetitive O-tqzsng-M-aspartate Receptor Antagonist, Sigma-1 Agonist Start: 06-11-2023 take 10 mL by mouth every eight hours [place] DM 7.5-7.5 MG/5ML 10 mL Orally every 8 hours for 5 days May, Not-Taking gabapentin 300 mg oral capsule (2 sources) Anti-epileptic Agent Start: 08-21-2024 End: 08-21-2024 take 1 capsule by mouth once 600 mg, oral, Once, On Sat08/21/24 at 1245, For 1 dose, Preprocedure, Capsules may be opened and sprinkled on food (eg, applesauce, orange juice, pudding). Capsules may be opened and sprinkled on food (eg, applesauce, orange juice, pudding Start: 06-26-2024 End: 06-26-2024 take 1 capsule by mouth once 600 mg, oral, Once, On Fr i 06/26/24 at 0630, For 1 dose, Preprocedure, Capsules may be opened and sprinkled on food (eg, applesauce, orange juice, pudding). Capsules may be opened and sprinkled on food (eg, applesauce, orange juice, pudding gadoterate meglumine (Dotarem) 0.5 mmol/mL contrast injection 22 mL (1 source) Start: 06-03-2024 End: 06-03-2024 22 mL (rounded from 22.2 mL = 0.2 mL/kg 111 kg Order-specific weight), intravenous, Once in imaging, Starting on Sat06/03/24 at 1301, For 1 dose, Administer undiluted as rapid I.V. bolus injection ibuprofen 600 mg oral tablet (6 sources) Nonsteroidal Anti-inflammatory Drug Start: 08-21-2024 End: 09-14-2024 take 1 tablet by mouth every six hours for pain ibuprofen 600 mg tablet Indications: Post-operative state Take 1 tablet (600 mg) by mouth every 6 hours if needed for moderate pain (4 - 6) for up to 20 doses. 20 tablet 08/21/2024 09/14/2024 Discontinued (Therapy completed) Start: 06-26-2024 End: 07-07-2024 take 1 tablet by mouth every six hours for pain ibuprofen 600 mg tablet Indications: Post-operative state Take 1 tablet (600 mg) by mouth every 6 hours if needed for moderate pain (4 - 6) for up to 20 doses. 20 tablet 06/26/2024 07/07/2024 Discontinued (Therapy completed) Start: 01-24-2024 End: 03-12-2024 take 1 tablet by mouth every eight hours ibuprofen 800 MG tablet Take 800 mg by mouth every 8 (eight) hours 01/24/2024 03/12/2024 Discontinued (Therapy completed) levonorgestrel 0.917667 mg/hr intrauterine system (3 sources) Progestin, Progestin-containing Intrauterine Device Start: 11-25-2023 End: 11-23-2028 Levonorgestrel intrauterine device 52 mg methylPREDNISolone (3 sources) Corticosteroid Start: 06-07-2017 Depo-Medrol 40 mg May, 40 mg penicillin v potassium 500 mg oral tablet (3 sources) Start: 10-12-2021 take 1 tablet by mouth every twelve hours Penicillin V Potassium 500 MG 1 tablet Orally Twice a day for 10 day(s) Sep, Not-Taking polyethylene glycol 3350 11534 mg powder for oral solution (4 sources) Osmotic Laxative Start: 08-21-2024 End: 09-14-2024 polyethylene glycol (Glycolax, Miralax) 17 gram packet Indications: Post-operative state Take 17 g by mouth once daily as needed (for constipation) for up to 10 doses. 10 packet 08/21/2024 09/14/2024 Discontinued (Therapy completed) Start: 06-26-2024 End: 07-07-2024 polyethylene glycol (Glycola x, Miralax) 17 gram packet Indications: Post-operative state Take 17 g by mouth once daily as needed (for constipation) for up to 10 doses. 10 packet 06/26/2024 07/07/2024 Discontinued (Therapy completed) Problems Active Problems Problem Classification Problem Date Documented Date Episodic/Chronic Asthma (20 sources) Mild intermittent asthma; Translations: [Mild intermittent asthma, uncomplicated] Onset: 07-25-2023 07-25-2023 Chronic Benign neoplasm of uterus (20 sources) Uterine leiomyoma; Translations: [Leiomyoma of uterus, unspecified] Onset: 05-18-2024 05-18-2024 Episodic Chronic kidney disease (7 sources) Chronic renal insufficiency; Translations: [Chronic kidney disease, unspecified] Onset: 06-26-2024 Resolved: 06-26-2024 06-26-2024 Chronic Disorders of lipid metabolism (14 sources) Hypertriglyceridemia; Translations: [Pure hyperglyceridemia] Onset: 09-18-2023 09-18-2023 Chronic Menstrual disorders (20 sources) Menorrhagia; Translations: [Excessive and frequent menstruation with regular cycle] Onset: 08-22-2023 08-22-2023 Chronic Other aftercare (3 sources) Surgical follow-up; Translations: [Encounter for follow-up examination after completed treatment for conditions other than malignant neoplasm] 07-07-2024 Episodic Other endocrine disorders (15 sources) Polycystic ovary syndrome; Translations: [Polycystic ovarian syndrome] Onset: 06-26-2024 05-18-2024 Chronic Other endocrine disorders (2 sources) Polycystic ovarian syndrome; Translations: [Polycystic ovarian syndrome] Onset: 05-18-2024 Chronic Other female genital disorders (1 source) Abnormal uterine bleeding; Translations: [Abnormal uterine and vaginal bleeding, unspecified] 05-18-2024 Chronic Other female genital disorders (14 sources) Heavy episode of vaginal bleeding; Translations: [Abnormal uterine and vaginal bleeding, unspecified] Onset: 12-25-2023 12-25-2023 Chronic Other female genital disorders (2 sources) Abnormal uterine and vaginal bleeding, unspecified; Translations: [Abnormal uterine and vaginal bleeding, unspecified] Onset: 05-18-2024 Chronic Other female genital disorders (4 sources) Other specified noninflammatory disorders of vagina; Translations: [OTH SPEC NONINFLAMMATORY D/O VAGINA] Onset: 08-01-2022 Episodic Other nutritional; endocrine; and metabolic disorders (16 sources) Insulin resistance; Translations: [Insulin resistance] Onset: 10-14-2023 10-14-2023 Chronic Other nutritional; endocrine; and metabolic disorders (17 sources) Obesity caused by energy imbalance; Translations: [Class 2 obesity due to excess calories without serious comorbidity with body mass index (BMI) of 39.0 to 39.9 in adult] Onset: 03-12-2024 03-12-2024 Chronic Other nutritional; endocrine; and metabolic disorders (8 sources) Obesity; Translations: [Obesity, unspecified] Onset: 06-26-2024 06-26-2024 Chronic Other nutritional; endocrine; and metabolic disorders (6 sources) Body mass index 30+ - obesity; Translations: [Body mass index (BMI) 39.0-39.9, adult] Onset: 09-10-2024 09-10-2024 Chronic Other upper respiratory infections (4 sources) Streptococcal pharyngitis; Translations: [Acute upper respiratory infection, unspecified] Onset: 10-12-2021 Resolved: 10-12-2021 Episodic Residual codes; unclassified (2 sources) Postoperative state; Translations: [Other specified postprocedural states] 06-26-2024 Episodic Unclassified (2 sources) Postop Visit; Translations: [Postop Visit] Onset: 07-07-2024 Past or Other Problems Problem Classification Problem Date Documented Date Episodic/Chronic Cardiac dysrhythmias (14 sources) Sinus tachycardia; Translations: [Tachycardia, unspecified] Onset: 07-25-2023 Resolved: 08-22-2023 08-22-2023 Episodic Contraceptive and procreative management (3 sources) Patient encounter status; Translations: [Encounter for fertility testing] Onset: 05-18-2024 05-18-2024 Episodic Deficiency and other anemia (14 sources) Anemia; Translations: [Other specified anemias] Onset: 09-17-2023 09-17-2023 Episodic Deficiency and other anemia (20 sources) Iron deficiency anemia; Translations: [Iron deficiency anemia, unspecified] Onset: 09-20-2023 09-20-2023 Episodic Immunizations and screening for infectious disease (6 sources) Contact with and (suspected) exposure to other viral communicable diseases; Translations: [Encounter for screening for human papillomavirus (HPV)] Onset: 10-05-2021 Resolved: 10-12-2021 Episodic Other and unspecified benign neoplasm (14 sources) Leiomyoma; Translations: [Benign neoplasm of connective and other soft tissue, unspecified] Onset: 12-25-2023 12-25-2023 Episodic Other circulatory disease (16 sources) Elevated blood pressure; Translations: [Elevated blood-pressure reading, without diagnosis of hypertension] Onset: 08-22-2023 08-22-2023 Episodic Other infections; including parasitic (14 sources) Personal history of other infectious and parasitic diseases; Translations: [History of COVID-19] Onset: 07-25-2023 07-25-2023 Episodic Other nutritional; endocrine; and metabolic disorders (14 sources) Body mass index 40+ - severely obese; Translations: [Body mass index (BMI) 40.0-44.9, adult] Onset: 08-22-2023 Resolved: 03-12-2024 03-12-2024 Chronic Other nutritional; endocrine; and metabolic disorders (14 sources) Severe obesity; Translations: [Class 3 severe obesity with body mass index (BMI) of 40.0 to 44.9 in adult] Onset: 10-01-2023 Resolved: 03-12-2024 03-12-2024 Chronic Other screening for suspected conditions (not mental disorders or infectious disease) (7 sources) Encounter for screening for malignant neoplasm of cervix; Translations: [Patient encounter status] Onset: 03-05-2022 Episodic Unclassified (1 source) Contact with and (suspected) exposure to covid-19 Z20.822 Unclassified (5 sources) Onset: 07-07-2024 Resolved: 09-14-2024 07-07-2024 Results Test Name Value Interpretation Reference Range Facility US SONOHYSTEROGRAMon 025 Source Facility: [facility] Interpreted by: Summer Jacinto Indication ======== Fertility Testing Impression ========= Upon instillation of saline, there are two submucous fibroids noted. Unremarkable pelvic survey otherwise. Transabdominal images were acquired in addition to transvaginal images for optimal visualization of pelvic structures. Follow-up ======== Interval procedure is planned. Uterus ====== Uterus: Visualized Uterus position: anteverted Myometrium: normal Endometrium: trilaminar Cervix details: normal Uterus length 75.5 mm Uterus width 55.4 mm Uterus height 41.6 mm Endometrial thickness, total 6.6 mm Fibroids: Fibroids identified Uterine fibroid D1 17 mm Uterine fibroid D2 14 mm Uterine fibroid D3 14 mm Uterine fibroid mean 15.0 mm Uterine fibroid vol 1.745 cm??? Uterine fibroids findings: Submucosal Uterine fibroid D1 27 mm Uterine fibroid D2 19 mm Uterine fibroid D3 23 mm Uterine fibroid mean 23.0 mm Uterine fibroid vol 6.178 cm??? Uterine fibroids findings: Submucosal Right Ovary ========= Rt ovary: Visualized Rt ovary morphology: normal Rt ovary D1 40.1 mm Rt ovary D2 25.0 mm Rt ovary D3 24.6 mm Rt ovary Vol 12.9 cm??? Rt ovarian follicle(s): Follicles identified Rt ovarian follicles other findings: Antral Follicles 10+<10mm Left Ovary ======== Lt ovary: Visualized Lt ovary morphology: normal Lt ovary D1 29.7 mm Lt ovary D2 29.8 mm Lt ovary D3 23.1 mm Lt ovary Vol 10.7 cm??? Lt ovarian follicle(s): Follicles identified Lt ovarian follicles other findings: Antral Follicles 10+<10mm [place] ========= Visualized. No free fluid visualized Method ====== Transabdominal and transvaginal ultrasound examination. View: Sufficient Radiology, Radiologist, - 09/10/2024 Source Facility: [facility] Interpreted by: Summer Jacinto Indication ======== Fertility Testing Impression ========= Upon instillation of saline, there are two submucous fibroids noted. Unremarkable pelvic survey otherwise. Transabdominal images were acquired in addition to transvaginal images for optimal visualization of pelvic structures. Follow-up ======== Interval procedure is planned. Uterus ====== Uterus: Visualized Uterus position: anteverted Myometrium: normal Endometrium: trilaminar Cervix details: normal Uterus length 75.5 mm Uterus width 55.4 mm Uterus height 41.6 mm Endometrial thickness, total 6.6 mm Fibroids: Fibroids identified Uterine fibroid D1 17 mm Uterine fibroid D2 14 mm Uterine fibroid D3 14 mm Uterine fibroid mean 15.0 mm Uterine fibroid vol 1.745 cm??? Uterine fibroids findings: Submucosal Uterine fibroid D1 27 mm Uterine fibroid D2 19 mm Uterine fibroid D3 23 mm Uterine fibroid mean 23.0 mm Uterine fibroid vol 6.178 cm??? Uterine fibroids findings: Submucosal Right Ovary ========= Rt ovary: Visualized Rt ovary morphology: normal Rt ovary D1 40.1 mm Rt ovary D2 25.0 mm Rt ovary D3 24.6 mm Rt ovary Vol 12.9 cm??? Rt ovarian follicle(s): Follicles identified Rt ovarian follicles other findings: Antral Follicles 10+<10mm Left Ovary ======== Lt ovary: Visualized Lt ovary morphology: normal Lt ovary D1 29.7 mm Lt ovary D2 29.8 mm Lt ovary D3 23.1 mm Lt ovary Vol 10.7 cm??? Lt ovarian follicle(s): Follicles identified Lt ovarian follicles other findings: Antral Follicles 10+<10mm [place] ========= Visualized. No free fluid visualized Method ====== Transabdominal and transvaginal ultrasound examination. View: Sufficient [facility] US SONOHYSTEROGRAMOrdered By : Radiologist Radiology on 09-10-2024 [facility] Work Phone: No Panel Informationon 08-26 SURG1 [facility] SURG SEE COMMENT [facility] SURGICAL PATHOLOGY EXAMon SURG Pathology report.total [facility] SURG Surgical Pathology Case: [id number] [facility] SURG Authorizing Provider: Melani Zaman MD Collected: 08/21/2024 1350 [facility] SURG1 Ordering Location: [facility] OR Received: 08/21/2024 1432 [facility] SURG Pathologist: Flavio Melara MD [facility] SURG Specimen: FIBROID MYOMECTOMY, UTERINE FIBROID [facility] SURG1 Path report.final diagnosis [facility] SURG1 A. Uterine fibroid, myomectomy: [facility] SURG1 --Secretory pattern endometrium [facility] SURG1 --Fragments of smooth muscle with ischemic changes and hyalinization [facility] SURG1 Attending: Bhavani Blackwood S. Avril, R. Redline. [facility] SURG1 [facility] SURG1 Laboratory comment [facility] SURG1 By the signature on this report, the individual or group listed as making the Final Interpretation/Joann gnosis certifies that they have reviewed this case. [facility] SURG1 Path report.relevant Hx [facility] SURG1 Pre-op diagnosis: [facility] SURG1 Submucous uterine fibroid [D25.0] [facility] SURG1 Path report.gross observation [facility] SURG1 A: Received in formalin in 3 mesh socks, labeled with the patient's name and hospital number and UTERINE FIBROID , are multiple friable trujillo-white to yellow fragments of tissue, and minimal clotted blood and mucus, aggregating to 5.0 x 4.0 x 1.2 cm and weighing 8.30 grams. Areas of calcification, necrosis, or softening, are not identified. [facility] Of Pharmacy sections are submitted in 2 cassettes. [facility] SURG1 [facility] Pre-op diagnosis: Submucous uterine fibroid [D25.0] Original Ordering Provider: MELANI ZAMAN [facility] HCG ( test) Ql (U)o n 08-21-2024 Interpretation and review of laboratory results Normal [facility] Work Phone: Preg Test, Ur Negative Negative [facility] Work Phone: [facility] Work Phone: Surgical pathology studyon 0 08-21-2024 Surgical pathology study Pathology report.total SEE COMMENT Surgical Pathology Case: [id number] Authorizing Provider: Melani Zaman MD Collected: 08/21/2024 1350 Ordering Location: [facility] OR Received: 08/21/2024 1432 Pathologist: Flavio Melara MD Specimen: FIBROID MYOMECTOMY, UTERINE FIBROID Path report.final diagnosis SEE COMMENT A. Uterine fibroid, myomectomy: --Secretory pattern endometrium --Fragments of smooth muscle with ischemic changes and hyalinization This case has been reviewed at the [facility] TAPING MACHINE OPERATOR consensus conference via Zoom on 08/26/24. Attending: Bhavani Blackwood S. Avril, R. Redline. Laboratory comment By the signature on this report, the individual or group listed as making the Final Interpretation/Joann gnosis certifies that they have reviewed this case. Path report.relevant Hx SEE COMMENT Pre-op diagnosis: Submucous uterine fibroid [D25.0] Path report.gross observation SEE COMMENT A: Received in formalin in 3 mesh socks, labeled with the patient's name and hospital number and UTERINE FIBROID , are multiple friable trujillo-white to yellow fragments of tissue, and minimal clotted blood and mucus, aggregating to 5.0 x 4.0 x 1.2 cm and weighing 8.30 grams. Areas of calcification, necrosis, or softening, are not identified. Corporate Director Of Pharmacy sections are submitted in 2 cassettes. [facility] Comment on above: Order Comment: Pre-o p diagnosis: Submucous uterine fibroid [D25.0] Basic metabolic 2000 panelon 08-18-2024 Anion gap [Moles/Vol] 12 mmol/L Normal 10-20 [facility] Comment on above: Performed By: #### 2 4321-2 #### KIMBERLY LESTER ([id number]) [facility] [address] [place] [address] 59989 Calcium [Mass/Vol] 9.2 mg/dL Normal 8.6-10.3 [facility] Comment on above: Performed By: #### 2 4321-2 #### KIMBERLY LESTER ([id number]) [facility] [address] [place] [address] 00338 Chloride [Moles/Vol] 106 mmol/L Normal 98-107 [facility] Comment on above: Performed By: #### 2 4321-2 #### KIMBERLY LESTER ([id number]) [facility] [address] [place] [address] 45447 CO2 [Moles/Vol] 23 mmol/L Normal 21-32 [facility] Comment on above: Performed By: #### 2 4321-2 #### KIMBERLY LESTER ([id number]) [facility] [address] [place] [address] 98694 Creatinine [Mass/Vol] 0.72 mg/dL Normal 0.50-1.05 [facility] Comment on above: Performed By: #### 2 4321-2 #### KIMBERLY LESTER ([id number]) [facility] [address] [place] [address] 18158 GFR/1.73 sq M.predicted MDRD (S/P/Bld) [Vol rate/Area] mL/min/{1.73_m2} Normal >60 [facility] Comment on above: Result Comment: Calc ulations of estimated GFR are performed using the 2020 CKD-EPI Study Refit equation without the race variable for the IDMS-Traceable creatinine methods. https://jasn.asnjournals.org/content/ASN.979 2480772 Performed By: #### 2 4321-2 #### KIMEBRLY LESTER ([id number]) [facility] [address] [place] [address] 33143 Glucose [Mass/Vol] 91 mg/dL Normal 74-99 [facility] Comment on above: Performed By: #### 2 4321-2 #### KIMBERLY LESTER ([id number]) [facility] [address] [place] [address] 93979 Potassium [Moles/Vol] 4.2 mmol/L Normal 3.5-5.3 [facility] Comment on above: Performed By: #### 2 4321-2 #### KIMBERLY LESTER ([id number]) [facility] [address] [place] [address] 88212 Sodium [Moles/Vol] 137 mmol/L Normal 136-145 [facility] Comment on above: Performed By: #### 2 4321-2 #### KIMBERLY LESTER ([id number]) [facility] [address] [place] [address] 90667 Urea nitrogen [Mass/Vol] 7 mg/dL Normal 6-23 [facility] Comment on above: Performed By: #### 2 4321-2 #### KIMBERLY LESTER ([id number]) [facility] [address] [place] [address] 67987 Blood type and Indirect anti body screen panel (Bld)on 08-18-2024 ABO group Nom (Bld) O Normal [facility] Comment on above: Performed By: #### 3 4532-2 #### ROBERT NOEL ([id number]) [facility] [address] [place] [address] [place] Blood group antibody screen Ql Negative [facility] Comment on above: Performed By: #### 3 4532-2 #### ROBERT NOEL ([id number]) [facility] ([facility] [address] [place] [address] US D Ag Ql (Bld) Positive [facility] Comment on above: Performed By: #### 3 4532-2 #### ROBERT NOEL ([id number]) [facility] ([facility]) [address] [place] [address] US CBC panel Auto (Bld)on 08-18 Erythrocyte distribution width (RBC) [Ratio] 12.5 % Normal 11.5-14.5 [facility] Comment on above: Performed By: #### 5 8410-2 #### KIMBERLY LESTER ([id number]) [facility] [address] [place] [address] 69669 Hematocrit (Bld) [Volume fraction] 37.3 % Normal 36.0-46.0 [facility] Comment on above: Performed By: #### 5 8410-2 #### KIMBERLY LESTER ([id number]) [facility] ([facility]) [address] [place] [address] 54224 Hemoglobin (Bld) [Mass/Vol] 12.1 g/dL Normal 12.0-16.0 [facility] Comment on above: Performed By: #### 5 8410-2 #### KIMBERLY LESTER ([id number]) [facility] ([facility]) [address] [place] [address] 39987 MCH (RBC) [Entitic mass] 29.3 pg Normal 26.0-34.0 [facility] Comment on above: Performed By: #### 5 8410-2 #### KIMBERLY LESTER ([id number]) [facility] [address] [place] [address] 12570 MCHC (RBC) [Mass/Vol] 32.4 g/dL Normal 32.0-36.0 [facility] Comment on above: Performed By: #### 5 8410-2 #### KIMBERLY LESTER ([id number]) [facility] [address] [place] [address] 44038 MCV (RBC) [Entitic vol] 90 fL Normal 80-100 U [facility] Comment on above: Performed By: #### 5 8410-2 #### KIMBERLY LESTER ([id number]) [facility] [address] [place] [address] 05458 Nucleated RBC/100 WBC (Bld) [Ratio] 0.0 /100 WBCs Normal 0.0-0.0 [facility] Comment on above: Performed By: #### 5 8410-2 #### KIMBERLY LESTER ([id number]) [facility] [address] [place] [address] 23321 Platelets (Bld) [#/Vol] 271 x10*3/uL Normal 150-450 [facility] Comment on above: Performed By: #### 5 8410-2 #### KIMBERLY LESTER ([id number]) [facility] [address] [place] [address] 58668 RBC (Bld) [#/Vol] 4.13 x10*6/uL Normal 4.00-5.20 [facility] Comment on above: Performed By: #### 5 8410-2 #### KIMBERLY LESTER ([id number]) [facility] [address] [place] [address] 50888 WBC (Bld) [#/Vol] 7.9 x10*3/uL Normal 4.4-11.3 [facility] Comment on above: Performed By: #### 5 8410-2 #### KIMBERLY LESTER ([id number]) [facility] [address] [place] [address] HCG ( test) Ql (U)o n 07-24-2024 Preg Test, Ur Negative Negative [facility] Work Phone: No Panel Informationon 07-24 [facility] Work Phone: Sonohysterogramon 07-24-2024 RETA Stratton 07/24/2024 5:15 PM Sonohysterogram Date/Time: 07/24/2024 1:20 PM Performed by: RETA Stratton Authorized by: RETA Stratton Consent: Consent obtained: Verbal and written Consent given by: Patient Patient questions answered: yes Patient agrees, verbalizes understanding, and wants to proceed: yes Instructions and paperwork completed: yes Pre-procedure: Pre-procedure timeout performed: yes Prepped with: Betadine Procedure: Cervix cleaned and prepped: yes Catheter inserted: yes Uterine cavity distended with saline: yes Post-procedure: No complications: no Estimated blood loss (mL): minimal. Post procedure instructions given to patient: yes Patient tolerated procedure well with no complications: yes Comments: Prior to the procedure, the patient was counseled regarding risks, benefits, and alternatives. Saline Ultrasound Findings: Uterus Visualized. Size 75.5 mm x 55.4 mm x 41.6 mm Position: anteverted Myometrium: normal Endometrium: trilaminar. Endometrial thickness, total 6.6 mm Cervix details: normal Fibroid(s) 1. Size 17 mm x 14 mm x 14 mm. Mean 15.0 mm. Vol 1.745 cm . Submucosal 2. Size 27 mm x 19 mm x 23 mm. Mean 23.0 mm. Vol 6.178 cm . Submucosal Right Ovary Visualized. Morphology: normal. Size 40.1 mm x 25.0 mm x 24.6 mm. Vol 12.9 cm Follicle(s) Antral Follicles 10+<10mm Left Ovary Visualized. Morphology: normal. Size 29.7 mm x 29.8 mm x 23.1 mm. Vol 10.7 cm Follicle(s) Antral Follicles 10+<10mm Uterus: normal contour with 2 filling defects/fibroids noted: 1 attached to submucosal fibroids noted: 1 left lateral uterine wall with positive color doppler and 1 not attached mid cavity Bubble Test performed: No Additional Findings: Follow up: Follow up required, chart forwarded to primary MD. Dr. Zaman reviewed the images. Patient is s/p Hysteroscopic myomectomy, Laparoscopic myomectomy, Chromopertubation on 06-26-[address] Zaman- not able to remove all of the fibroids- will need a 2nd staging surgery- patient prefers to have done with Dr. Zaman. Dr. Zaman does not need to see for another pre-op visit. Dr. Zaman will place orders for surgery and food service helper will reach back with date and details. Darlene Julien CNP 07/24/24 5:13 PM [facility] US SONOHYSTEROGRAMon 025 US SONOHYSTEROGRAM Interpreted by: Summer Jacinto Indication ======== Fertility Testing Impression ========= Upon instillation of saline, there are two submucous fibroids noted. Unremarkable pelvic survey otherwise. Transabdominal images were acquired in addition to transvaginal images for optimal visualization of pelvic structures. Follow-up ======== Interval procedure is planned. Uterus ====== Uterus: Visualized Uterus position: anteverted Myometrium: normal Endometrium: trilaminar Cervix details: normal Uterus length 75.5 mm Uterus width 55.4 mm Uterus height 41.6 mm Endometrial thickness, total 6.6 mm Fibroids: Fibroids identified Uterine fibroid D1 17 mm Uterine fibroid D2 14 mm Uterine fibroid D3 14 mm Uterine fibroid mean 15.0 mm Uterine fibroid vol 1.745 cm??? Uterine fibroids findings: Submucosal Uterine fibroid D1 27 mm Uterine fibroid D2 19 mm Uterine fibroid D3 23 mm Uterine fibroid mean 23.0 mm Uterine fibroid vol 6.178 cm??? Uterine fibroids findings: Submucosal Right Ovary ========= Rt ovary: Visualized Rt ovary morphology: normal Rt ovary D1 40.1 mm Rt ovary D2 25.0 mm Rt ovary D3 24.6 mm Rt ovary Vol 12.9 cm??? Rt ovarian follicle(s): Follicles identified Rt ovarian follicles other findings: Antral Follicles 10+<10mm Left Ovary ======== Lt ovary: Visualized Lt ovary morphology: normal Lt ovary D1 29.7 mm Lt ovary D2 29.8 mm Lt ovary D3 23.1 mm Lt ovary Vol 10.7 cm??? Lt ovarian follicle(s): Follicles identified Lt ovarian follicles other findings: Antral Follicles 10+<10mm [place] ========= Visualized. No free fluid visualized Method ====== Transabdominal and transvaginal ultrasound examination. View: Sufficient Normal [facility] Radiology Study observation (narrative) [facility] HCG ( test) Ql (U)o n 06-26-2024 Interpretation and review of laboratory results Abnormal [facility] Work Phone: Preg Test, Ur Negative Abnormal Negative [facility] Work Phone: [facility] Work Phone: Surgical pathology studyon 1 08-27-2023 Surgical pathology study Pathology report.total SEE COMMENT Surgical Pathology Case: [id number] Authorizing Provider: Melani Zaman MD Collected: 06/26/2024 1043 Ordering Location: [facility] OR Received: 06/26/2024 1300 Pathologist: Chelsey Garland MD, MS Specimens: A) - FIBROID MYOMECTOMY, Uterine Fibroid B) - CYST FALLOPIAN TUBE, Left paratubal cyst Path report.final diagnosis SEE COMMENT A. Fibroid myomectomy: - Leiomyoma. - Extensively fragmented proliferative pattern endometrium. See comment. B. Left fallopian tube cyst, excision: - Fragment of fallopian tube with paratubal cysts. Laboratory comment By the signature on this report, the individual or group listed as making the Final Interpretation/Joann gnosis certifies that they have reviewed this case. Path report.comments SEE COMMENT Select slide (A6) was shown at the [facility] TAPING MACHINE OPERATOR consensus conference via Zoom on 07/16/2024 Attending: Jose Almazan, Jose Carr, Nestor Dave. Path report.relevant Hx SEE COMMENT Pre-op diagnosis: Intramural, submucous, and subserous leiomyoma of uterus [D25.1, D25.0, D25.2] Path report.gross observation SEE COMMENT A. Received in formalin, labeled with the patient???s name and hospital number and Uterine fibroid are multiple fragments of nodular tissue, the individual pieces ranging from 0.3 cm diameter to 5.2 x 4 x 3 cm. They measure 10 x 9 x 3 cm and weigh 115 grams in aggregate. The cut surface is trujillo-white, whorled, rubbery, and bulging. Areas of calcification, necrosis, softening, or hemorrhage are not identified. Corporate Director Of Pharmacy sections are submitted in 4 cassettes. In addition, a gauze sac containing multiple white to red soft tissue fragments aggregating to 4 x 2 x 0.3 cm is present. These tissue fragments are entirely submitted in A5 and A6. [facility] Summary of Cassettes: Specimen Label Site A 1-4 Corporate Director Of Pharmacy sections of fibroid A 5-6 Multiple tissue fragments, likely [facility]. [facility] Department of Pathology [address] [place] [address] B. Received in formalin, labeled with the patient???s name and hospital number and Left paratubal cyst is a collapsed translucent cyst 0.7 cm in its collapsed state. The pedicle of the cyst measures 1 x 0.2 x 0.2 cm. No solid areas or excrescences are identified. Cyst wall is 0.1 cm or less in thickness. The tissue fragment is entirely submitted in B1. [facility] Department of Pathology [address] [place] [address] [facility] Comment on above: Order Comment: Pre-o p diagnosis: Intramural, submucous, and subserous leiomyoma of uterus [D25.1, D25.0, D25.2] Blood type and Indirect anti body screen panel (Bld)on 06-25-2024 ABO group Nom (Bld) O Normal [facility] Comment on above: Order Comment: Speci men for compatibility testing requires full first and last name, MRN, , date, time of collection, and dry finisher/bill collector's signature on tube(s) or it will be rejected. Please collect 1 lavender top-KEDTA OR 1 pink top-KEDTA and sign, date and time with the patient's full first and last name, MRN and . Performed By: #### 3 4532-2 #### ROBERT NOEL ([id number]) [facility] [address] [place] [address] Blood group antibody screen Ql Negative [facility] Comment on above: Order Comment: Speci men for compatibility testing requires full first and last name, MRN, , date, time of collection, and dry finisher/bill collector's signature on tube(s) or it will be rejected. Please collect 1 lavender top-KEDTA OR 1 pink top-KEDTA and sign, date and time with the patient's full first and last name, MRN and . Performed By: #### 3 4532-2 #### ROBERT NOEL ([id number]) [facility] [address] [place] [address] US D Ag Ql (Bld) Positive [facility] Comment on above: Order Comment: Speci men for compatibility testing requires full first and last name, MRN, , date, time of collection, and dry finisher/bill collector's signature on tube(s) or it will be rejected. Please collect 1 lavender top-KEDTA OR 1 pink top-KEDTA and sign, date and time with the patient's full first and last name, MRN and . Performed By: #### 3 4532-2 #### ROBERT NOEL ([id number]) [facility] [address] [place] [address] US CBC W Auto Differential pane l (Bld)on 06-25-2024 Basophils (Bld) [#/Vol] 0.07 x10*3/uL Normal 0.00-0.10 [facility] Comment on above: Performed By: #### 5 7021-8 #### ROBERT NOEL ([id number]) [facility] ([facility]) [address] [place] [address] Basophils/100 WBC (Bld) 1.0 % Normal 0.0-2.0 [facility] Comment on above: Performed By: #### 5 7021-8 #### ROBERT NOEL ([id number]) [facility] ([facility]) [address] [place] [address] Eosinophils (Bld) [#/Vol] 0.08 x10*3/uL Normal 0.00-0.70 [facility] Comment on above: Performed By: #### 5 7021-8 #### ROBERT NOEL ([id number]) [facility] ([facility]) [address] [place] [address] Eosinophils/100 WBC (Bld) 1.1 % Normal 0.0-6.0 [facility] Comment on above: Performed By: #### 5 7021-8 #### ROBERT NOEL ([id number]) [facility] ([facility]) [address] [place] [address] Erythrocyte distribution width (RBC) [Ratio] 12.9 % Normal 11.5-14.5 [facility] Comment on above: Performed By: #### 5 7021-8 #### ROBERT NOEL ([id number]) [facility] ([facility]) [address] [place] [address] Hematocrit (Bld) [Volume fraction] 37.9 % Normal 36.0-46.0 [facility] Comment on above: Performed By: #### 5 7021-8 #### ROBERT NOEL ([id number]) [facility] ([facility]) [address] [place] [address] Hemoglobin (Bld) [Mass/Vol] 12.2 g/dL Normal 12.0-16.0 [facility] Comment on above: Performed By: #### 5 7021-8 #### ROBERT NOEL ([id number]) [facility] ([facility]) [address] [place] [address] Immature granulocytes (Bld) [#/Vol] 0.02 x10*3/uL Normal 0.00-0.70 [facility] Comment on above: Performed By: #### 5 7021-8 #### ROBERT NOEL ([id number]) [facility] ([facility]) [address] [place] [address] Immature granulocytes/100 WBC (Bld) 0.3 % Normal 0.0-0.9 [facility] Comment on above: Result Comment: Tamiko ture Granulocyte Count (IG) includes promyelocytes, myelocytes and metamyelocytes but does not include bands. Percent differential counts (%) should be interpreted in the context of the absolute cell counts (cells/UL). Performed By: #### 5 7021-8 #### ROBERT NOEL ([id number]) [facility] ([facility]) [address] [place] [address] Lymphocytes (Bld) [#/Vol] 1.74 x10*3/uL Normal 1.20-4.80 [facility] Comment on above: Performed By: #### 5 7021-8 #### ROBERT NOLE ([id number]) [facility] ([facility]) [address] [place] [address] Lymphocytes/100 WBC (Bld) 24.6 % Normal 13.0-44.0 [facility] Comment on above: Performed By: #### 5 7021-8 #### ROBERT NOEL ([id number]) [facility] ([facility]) [address] [place] [address] MCH (RBC) [Entitic mass] 28.8 pg Normal 26.0-34.0 [facility] Comment on above: Performed By: #### 5 7021-8 #### ROBERT NOEL ([id number]) [facility] ([facility]) [address] [place] [address] MCHC (RBC) [Mass/Vol] 32.2 g/dL Normal 32.0-36.0 [place] Comment on above: Performed By: #### 5 7021-8 #### ROBERT NOEL ([id number]) [facility] LAB ([facility]) [address] [place] [address] MCV (RBC) [Entitic vol] 90 fL Normal 80-100 U [facility] Comment on above: Performed By: #### 5 7021-8 #### ROBERT NOEL ([id number]) [facility] LAB ([facility]) [address] [place] [address] Monocytes (Bld) [#/Vol] 0.61 x10*3/uL Normal 0.10-1.00 [facility] Comment on above: Performed By: #### 5 7021-8 #### ROBERT NOEL ([id number]) [facility] LAB ([facility]) [address] [place] [address] Monocytes/100 WBC (Bld) 8.6 % Normal 2.0-10.0 U [facility] Comment on above: Performed By: #### 5 7021-8 #### ROBERT NOEL ([id number]) [facility] LAB ([facility]) [address] [place] [address] Neutrophils (Bld) [#/Vol] 4.54 x10*3/uL Normal 1.20-7.70 [facility] Comment on above: Result Comment: Perc ent differential counts (%) should be interpreted in the context of the absolute cell counts (cells/uL). Performed By: #### 5 7021-8 #### ROBERT NOEL ([id number]) [facility] LAB ([facility]) [address] [place] [address] Neutrophils/100 WBC (Bld) 64.4 % Normal 40.0-80.0 [facility] Comment on above: Performed By: #### 5 7021-8 #### ROBERT NOEL ([id number]) [facility] LAB ([facility]) [address] [place] [address] Nucleated RBC/100 WBC (Bld) [Ratio] 0.0 /100 WBCs Normal 0.0-0.0 [facility] Comment on above: Performed By: #### 5 7021-8 #### ROBERT NOEL ([id number]) [facility] LAB ([facility]) [address] [place] [address] Platelets (Bld) [#/Vol] 319 x10*3/uL Normal 150-450 [facility] Comment on above: Performed By: #### 5 7021-8 #### ROBERT NOEL ([id number]) [facility] LAB ([facility]) [address] [place] [address] RBC (Bld) [#/Vol] 4.23 x10*6/uL Normal 4.00-5.20 [facility] Comment on above: Performed By: #### 5 7021-8 #### ROBERT NOEL ([id number]) [facility] LAB ([facility]) [address] [place] [address] WBC (Bld) [#/Vol] 7.1 x10*3/uL Normal 4.4-11.3 [facility] Comment on above: Performed By: #### 5 7021-8 #### ROBERT NOEL ([id number]) [facility] LAB ([facility]) [address] CBC AND DIFFERENTIALon Basophils/100 WBC (Bld) 1 % 0.0 - 2.0 % [facility] Eosinophils/100 WBC (Bld) 1.1 % 0.0 - 6.0 % [facility] Erythrocyte distribution width (RBC) [Ratio] 12.9 % 11.5 - 14.5 % [facility] Hematocrit (Bld) [Volume fraction] 37.9 % 36.0 - 46.0 % [facility] Hemoglobin (Bld) [Mass/Vol] 12.2 g/dL 12.0 - 16.0 g/dL [facility] Lymphocytes/100 WBC (Bld) 24.6 % 13.0 - 44.0 % [facility] MCH (RBC) [Entitic mass] 28.8 pg 26. 0 - 34.0 pg [facility] MCHC (RBC) [Mass/Vol] 32.2 g/dL 32.0 - 36.0 g/dL [facility] MCV (RBC) [Entitic vol] 90 fL 80 - 100 fL [facility] Monocytes/100 WBC (Bld) 8.6 % 2.0 - 10.0 % [facility] Neutrophils/100 WBC (Bld) 64.4 % 40.0 - 80.0 % [facility] % AUTOMATED IMMATURE GRAN 0.3 % 0.0 - 0.9 % [facility] Comment on above: Immature Granulocyte Count (IG) includes promyelocytes, myelocytes and metamyelocytes but does not include bands. Percent differential counts (%) should be interpreted in the context of the absolute cell counts (cells/UL). [facility] AUTOMATED IMMATURE GRAN 0.02 [facility] BASOPHIL 0.07 [facility] EOSINOPHIL 0.08 [facility] LYMPHOCYTE 1.74 [facility] MONOCYTE 0.61 [facility] NEUTROPHIL 4.54 [facility] Comment on above: Percent differential counts (%) should be interpreted in the context of the absolute cell counts (cells/uL). 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 ,D25.9 Leiomyoma of uterus, unspecified COMPARISON: None. ACCESSION NUMBER(S): [id number] ORDERING CLINICIAN: MELANI ZAMAN TECHNIQUE: Multiplanar MRI of the pelvis was obtained including axial, sagittal and coronal T2 weighted SSFSE, (para)axial, (para)coronal and sagittal T2 FSE , axial DWI, pre and post gadolinium dynamic T1 GRE sequences in 3 planes. MR angiographic acquisitions were obtained. 22 ML of Dotarem was administered intravenously without complication. FINDINGS: UTERUS: The uterus is anteverted and measures about 10 x 7 x 7 cm. The thickness of the junctional zone is within normal limits estimated at about 5 mm sagittal T2 haste image 11/06.. The endometrium has normal thickness estimated at 3 mm image /18. There is distortion of the endometrial widening due to adjacent leiomyomas.. Multiple marginated enhancing observations related to the uterus compatible with leiomyomatous uterus ranging from subserosal to intracavitary. Findings include a subserosal dominant mass measuring about 6 cm right anterior uterine body axial T2 haste image 318. There is a dominant left-sided fundal region intramural observation estimated about 4 cm image 3. There are 2 adjacent intracavitary observations including fundal region observation measuring about 15 mm sagittal image 4/16 and uterine body intracavitary observation measuring about 3 cm image /18. The vagina and vulva are unremarkable. OVARIES/ADNEXA: The ovaries demonstrate PCOS morphology. The right ovary measures about 4.8 x 2.7 x 4.0 cm coronal T2 image 2/16. The left ovary measures about 3.2 x 2.8 x 2.4 cm image 2/. No suspicious adnexal mass PERITONEAL FLUID: Trace, physiologic amount of pelvic free fluid. PELVIC LYMPH NODES: No abnormally enlarged pelvic lymph nodes are identified. BOWEL: No significant abnormality. The visualized portion of the abdomen demonstrates no significant abnormality. BONES: No focal lesions are noted in the bone. IMPRESSION: 1. Leiomyomatous uterus with leiomyomas ranging from subserosal to intracavitary. 2. PCOS ovary morphology. MACRO: None Signed by: Nicola Multani 06/03/2024 2:50 PM Dictation workstation: [facility] MR Pelvis WO and W contrast Aria 06-03-2024 1. Leiomyomatous uterus with leiomyomas ranging from subserosal to intracavitary. 2. PCOS ovary morphology. 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 ,D25.9 Leiomyoma of uterus, unspecified COMPARISON: None. ACCESSION NUMBER(S): [id number] ORDERING CLINICIAN: MELANI ZAMAN TECHNIQUE: Multiplanar MRI of the pelvis was obtained including axial, sagittal and coronal T2 weighted SSFSE, (para)axial, (para)coronal and sagittal T2 FSE , axial DWI, pre and post gadolinium dynamic T1 GRE sequences in 3 planes. MR angiographic acquisitions were obtained. 22 ML of Dotarem was administered intravenously without complication. FINDINGS: UTERUS: The uterus is anteverted and measures about 10 x 7 x 7 cm. The thickness of the junctional zone is within normal limits estimated at about 5 mm sagittal T2 haste image 11/06.. The endometrium has normal thickness estimated at 3 mm image 4/18. There is distortion of the endometrial widening due to adjacent leiomyomas.. Multiple marginated enhancing observations related to the uterus compatible with leiomyomatous uterus ranging from subserosal to intracavitary. Findings include a subserosal dominant mass measuring about 6 cm right anterior uterine body axial T2 haste image 3/. There is a dominant left-sided fundal region intramural observation estimated about 4 cm image 3/. There are 2 adjacent intracavitary observations including fundal region observation measuring about 15 mm sagittal image /16 and uterine body intracavitary observation measuring about 3 cm image /18. The vagina and vulva are unremarkable. OVARIES/ADNEXA: The ovaries demonstrate PCOS morphology. The right ovary measures about 4.8 x 2.7 x 4.0 cm coronal T2 image 2/. The left ovary measures about 3.2 x 2.8 x 2.4 cm image 2/. No suspicious adnexal mass PERITONEAL FLUID: Trace, physiologic amount of pelvic free fluid. PELVIC LYMPH NODES: No abnormally enlarged pelvic lymph nodes are identified. BOWEL: No significant abnormality. The visualized portion of the abdomen demonstrates no significant abnormality. BONES: No focal lesions are noted in the bone. 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 ,D25.9 Leiomyoma of uterus, unspecified COMPARISON: None. ACCESSION NUMBER(S): [id number] ORDERING CLINICIAN: MELANI ZAMAN TECHNIQUE: Multiplanar MRI of the pelvis was obtained including axial, sagittal and coronal T2 weighted SSFSE, (para)axial, (para)coronal and sagittal T2 FSE , axial DWI, pre and post gadolinium dynamic T1 GRE sequences in 3 planes. MR angiographic acquisitions were obtained. 22 ML of Dotarem was administered intravenously without complication. FINDINGS: UTERUS: The uterus is anteverted and measures about 10 x 7 x 7 cm. The thickness of the junctional zone is within normal limits estimated at about 5 mm sagittal T2 haste image 11/06.. The endometrium has normal thickness estimated at 3 mm image /18. There is distortion of the endometrial widening due to adjacent leiomyomas.. Multiple marginated enhancing observations related to the uterus compatible with leiomyomatous uterus ranging from subserosal to intracavitary. Findings include a subserosal dominant mass measuring about 6 cm right anterior uterine body axial T2 haste image 10/06. There is a dominant left-sided fundal region intramural observation estimated about 4 cm image 09/30. There are 2 adjacent intracavitary observations including fundal region observation measuring about 15 mm sagittal image 11/04 and uterine body intracavitary observation measuring about 3 cm image 11/06. The vagina and vulva are unremarkable. OVARIES/ADNEXA: The ovaries demonstrate PCOS morphology. The right ovary measures about 4.8 x 2.7 x 4.0 cm coronal T2 image 09/06. The left ovary measures about 3.2 x 2.8 x 2.4 cm image 08/30. No suspicious adnexal mass PERITONEAL FLUID: Trace, physiologic amount of pelvic free fluid. PELVIC LYMPH NODES: No abnormally enlarged pelvic lymph nodes are identified. BOWEL: No significant abnormality. The visualized portion of the abdomen demonstrates no significant abnormality. BONES: No focal lesions are noted in the bone. IMPRESSION: 1. Leiomyomatous uterus with leiomyomas ranging from subserosal to intracavitary. 2. PCOS ovary morphology. MACRO: None Signed by: Nicola Multani 06/03/2024 2:50 PM Dictation workstation: [id number] [facility] Work Phone: Radiology Study observation (narrative) [facility] Work Phone: MR Pelvis WO and W contrast IVOrdered By: Nicola Multani on 06-03-2024 [facility] Work Phone: Blood type and Indirect anti body screen panel (Bld)on 05-18-2024 ABO group Nom (Bld) O Normal [facility] Comment on above: Performed By: #### 3 4532-2 #### ROBERT NOEL ([id number]) [facility] (UBB) [address] [place] [address] Blood group antibody screen Ql Negative Normal [facility] Comment on above: Performed By: #### 3 4532-2 #### ROBERT NOEL ([id number]) [facility] (UBB) [address] [place] [address] US D Ag Ql (Bld) Positive Normal [facility] Comment on above: Performed By: #### 3 4532-2 #### ROBERT NOEL ([id number]) [facility] ([facility]BB) [address] [place] [address] US CBC panel Auto (Bld)on 05-18 Erythrocyte distribution width (RBC) [Ratio] 12.8 % Normal 11.5-14.5 [facility] Comment on above: Performed By: #### 5 8410-2 #### ENRIQUE Martinez ([id number]) [facility] [place] [facility] ([facility]) [address] [place] [address] Hematocrit (Bld) [Volume fraction] 37.5 % Normal 36.0-46.0 [facility] Comment on above: Performed By: #### 5 8410-2 #### ENRIQUE Martinez ([id number]) [facility] [place] [facility] ([facility]) [address] [place] [address] Hemoglobin (Bld) [Mass/Vol] 12.1 g/dL Normal 12.0-16.0 [facility] Comment on above: Performed By: #### 5 8410-2 #### ENRIQUE Martinez ([id number]) [facility] [place] [facility] ([facility]) [address] [place] [address] MCH (RBC) [Entitic mass] 29.0 pg Normal 26.0-34.0 [facility] Comment on above: Performed By: #### 5 8410-2 #### ENRIQUE Martinez ([id number]) [facility] [place] [facility] ([facility]) [address] [place] [address] MCHC (RBC) [Mass/Vol] 32.3 g/dL Normal 32.0-36.0 [place] Comment on above: Performed By: #### 5 8410-2 #### ENRIQUE Martinez ([id number]) [facility] [place] [facility] ([facility]) [address] [place] [address] MCV (RBC) [Entitic vol] 90 fL Normal 80-100 U [facility] Comment on above: Performed By: #### 5 8410-2 #### ENRIQUE Martinez ([id number]) [facility] [place] [facility] ([facility]) [address] [place] [address] Nucleated RBC/100 WBC (Bld) [Ratio] 0.0 /100 WBCs Normal 0.0-0.0 [facility] Comment on above: Performed By: #### 5 8410-2 #### ENRIQUE Martinez ([id number]) [facility] [place] [facility] ([facility]) [address] [place] [address] Platelets (Bld) [#/Vol] 275 x10*3/uL Normal 150-450 [facility] Comment on above: Performed By: #### 5 8410-2 #### ENRIQUE Martinez ([id number]) [facility] [place] [facility] ([facility]) [address] [place] [address] RBC (Bld) [#/Vol] 4.17 x10*6/uL Normal 4.00-5.20 [facility] Comment on above: Performed By: #### 5 8410-2 #### ENRIQUE Martinez ([id number]) [facility] [place] [facility] ([facility]) [address] [place] [address] WBC (Bld) [#/Vol] 10.9 x10*3/uL Normal 4.4-11.3 [facility] Comment on above: Performed By: #### 5 8410-2 #### ENRIQUE Martinez ([id number]) [facility] [place] [facility] ([facility]) [address] [place] [address] HbA1c (Bld) [Mass fraction]o n 05-18-2024 Average glucose Estimated from glycated hemoglobin (Bld) [Mass/Vol] 105 mg/dL Normal Not Established [facility] Comment on above: Order Comment: Diagn osis of Diabetes-Adults Non-Diabetic: < or = 5.6% Increased risk for developing diabetes: 5.7-6.4% Diagnostic of diabetes: > or = 6.5% Performed By: #### 4 548-4 #### ENRIQUE Martinez ([id number]) [facility] [place] [facility] ([facility]) [address] [place] [address] Hemoglobin A1c/Hemoglobin.to farideh 05-18-2024 HbA1c (Bld) [Mass fraction] 5.3 % Normal See comment [facility] Comment on above: Order Comment: Diagn osis of Diabetes-Adults Non-Diabetic: < or = 5.6% Increased risk for developing diabetes: 5.7-6.4% Diagnostic of diabetes: > or = 6.5% Performed By: #### 4 548-4 #### ENRIQUE Martinez ([id number]) [facility] [place] [facility] ([facility]) [address] [place] [address] Mullerian inhibiting substan ceon 05-18-2024 Mullerian inhibiting substance [Mass/Vol] 12.400 ng/mL High 0.176-11.705 [facility] Comment on above: Result Comment: INTE RPRETIVE INFORMATION: Anti-Mullerian Hormone FEMALE: 6 months - 14 years: 0.256 - 6.345 ng/mL 15-17 years: 0.861 - 10.451 ng/mL 18-29 years: 0.401 - 16.015 ng/mL 30-39 years: 0.176 - 11.705 ng/mL 40-45 years: 6.282 ng/mL or less 46-50 years: 0.064 ng/mL or less Post-menopausal: 0.003 ng/mL or less MALE: 6-11 months: 56.677 - 495.299 ng/mL 1-6 years: 33.442 - 342.450 ng/mL 7-9 years: 20.245 - 189.781 ng/mL 10-12 years: 2.903 - 178.243 ng/mL 13 years and older: 2.079 - 30.656 ng/mL This test was developed and its performance characteristics determined by [facility]. It has not been cleared or approved by the [place] Food and Drug Administration. This test was performed in a CLIA certified laboratory and is intended for clinical purposes. Performed By: [facility] [address] [place] [address] [place] [address] Front Desk Administrator: Edward Cruz MD, PhD CLIA Number: [id number] Performed By: #### 3 8476-8 #### [facility]) ([id number]) [address] [place] [address] ALL CBC WITH AUTO DIFFon BASOPHILS ABSOLUTE AUTO 0.1 N [facility] Basophils/100 WBC (Bld) 1.3 % 0.2 - 2.0 % [facility] Eosinophils/100 WBC (Bld) 2.5 % 0.9 - 7.0 % [facility] Erythrocyte distribution width (RBC) [Ratio] 12.7 % 11.0 - 15.0 % [facility] Hematocrit (Bld) [Volume fraction] 35.8 % Low 36.0 - 48.0 % [facility] Hemoglobin (Bld) [Mass/Vol] 11.5 g/dL Low 12.0 - 16.0 g/dL [facility] IMMATURE GRANULOCYTES ABS AUTO 0.01 [facility] Immature granulocytes/100 WBC (Bld) 0.1 % 0.0 - 0.5 % [facility] Interpretation and review of laboratory results Abnormal [facility] LYMPHOCYTES ABSOLUTE AUTO 2.4 [facility] Lymphocytes/100 WBC (Bld) 29.8 % 20.5 - 60.0 % [facility] MCH (RBC) [Entitic mass] 29.0 pg 26. 7 - 34.0 pg [facility] MCHC (RBC) [Mass/Vol] 32.1 g/dL 29.9 - 35.2 g/dL [facility] MCV (RBC) [Entitic vol] 90.4 fL 81.0 - 99.0 fL [facility] MONOCYTES ABSOLUTE AUTO 0.7 N [facility] Monocytes/100 WBC (Bld) 8.3 % 1.7 - 12.0 % [facility] NEUTROPHILS ABSOLUTE AUTO 4.6 [facility] Neutrophils/100 WBC (Bld) 58.0 % 43.0 - 75.0 % [facility] Platelet mean volume (Bld) [Entitic vol] 11.4 fL 9.5 - 13.5 fL [facility] TBH EO # 0.2 [facility] PLT 305 [facility] TB RBC 3.96 Low [facility] TB WBC 7.9 [facility] Silas 01-24-2024 L Specimen: [id number] Received: 01/27/24 Status: AGNES Kevin Num: [id number] Spec Type: Surgical Subm Dr: Abel Alvarez Tissues: A Endometrium - Curettings (EMC) Procedures: HE/2, Gross/Micro L4 Age/ Patient Sex Location Account Attending Physician Barb Estrada 33/F LABELL [id number] Abel Alvarez SPEC NUM: [id number] RECD: 01/27/24 STATUS: AGNES MORENO NUM: [id number] LASHELL: 01/24/[address]: Abel Alvarez ENTERED: 01/27/24 [facility] DR: Laurie,Lab SPEC TYPE: Surgical [...] examinations are performed supporting the above interpretation -- Specimen: [id number] Received: 01/27/24 Status: AGNES Moreon Num: [id number] Spec Type: Surgical Subm Dr: Abel Alvarez Tissues: A Endometrium - Curettings (EMC) Procedures: HE/2, Gross/Micro L4 -- Patient: NatalieBarb [id number] (Continued) -- Specimen: [id number] Received: 01/27/24 (Continued) Signed (signatu re on file) Ani Sarah MD 01/28/24 1607 -- Specimen: [id number] Received: 01/27/24 Status: AGNES Moreno Num: [id number] Spec Type: Surgical Subm Dr: Abel Alvarez Tissues: A Endometrium - Curettings (EMC) Procedures: HE/2, Gross/Micro L4 -- Patient: Barb Estrada [id number] (Continued) -- Specimen: [id number] Received: 01/27/24 (Continued) CPT Codes 02162 -- -- Specimen: [id number] Received: 01/27/24 Status: AGNES Moreno Num: [id number] Spec Type: Surgical Subm Dr: Abel Alvarez Tissues: A Endometrium - Curettings (EMC) Procedures: HE/2, Felicia/Amanda L4 -- Patient: Barb Estrada [id number] (Continued) -- Signed (signatu re on file) Ani Sarah MD 01/28/24 1607 Normal [facility] Silas 11-12-2023 L Specimen: [id number] Received: 11/13/23 Status: AGNES Conroysonu Num: [id number] Spec Type: Surgical Subm Dr: Abel Alvarez Tissues: A Endometrium - Biopsy (EMB) Procedures: HE/2, Gross/Micro L4 Age/ Patient Sex Location Account Attending Physician Barb Estrada 33/F LABE[facility] [id number] Abel Alvarez SPEC NUM: [id number] RECD: 11/13/23 STATUS: AGNES CONROYSonu NUM: [id number] LASHELL: 11/12/23 DR: Abel Alvarez ENTERED: 11/13/23 [facility] DR: Laurie,Lab SPEC TYPE: Surgical [...] in A1. Clinical history: Menorrhagia CPT Codes 83007 -- -- Specimen: [id number] Received: 11/13/23 Status: AGNES Kevin Num: [id number] Spec Type: Surgical Subm Dr: Abel Alvarez Tissues: A Endometrium - Biopsy (EMB) Procedures: HE/2, Gross/Micro L4 -- Patient: Barb Estrada [id number] (Continued) -- Signed (signatu re on file) Jazmin Andrews MD 11/14/23 1547 Normal [facility] Quick Strepon 06-24-2023 S. pyogenes Org specific cx Ql (Throat) Negative [facility] Other Quick Strep [facility] Other COVID/FLU/RSV RT-PCRon 06-11 SARS-CoV-2 (COVID-19) RNA NATALIIA+probe Ql (Unsp spec) Negative [facility] Other COVID/FLU/RSV RT-PCR Negative [facility] [employer] Other CHLAMYDIA/GONOCOCCUS NATALIIA (SW AB/URINE/PAPon 08-03-2022 Chlamydia trachomatis, NATALIIA Negative Normal Negative [facility] Comment on above: Performed By: #### C T/NGNA #### [facility] [address] [place] [address] Dr. Anahy Sarah Neisseria gonorrhoeae, NATALIIA Negative Normal Negative [facility] Comment on above: Performed By: #### C T/NGNA #### [facility] [address] [place] [address] Dr. Anahy Sarah VAGINITIS/VAGINOSIS DNA PROB Omar 08-02-2022 Radha species Positive Abnormal Negative [facility] Comment on above: Performed By: #### V AGINT #### [facility] [address] [place] [address] Dr. Anahy Sarah Gardnerella vaginalis Negative Normal Negative [facility] Comment on above: Performed By: #### V AGINT #### [facility] [address] [place] [address] Dr. Anahy Sarah Trichomonas vaginalis Negative Normal Negative [facility] Comment on above: Performed By: #### V AGINT #### [facility] [address] [place] [address] Dr. Anahy Sarah CBC AUTO DIFFon 04-12-2022 BASO # 0.1 103/ul Normal 0.0-0.1 [facility] Comment on above: Performed By: #### C BC #### [facility] [address] [place] [address] Dr. Anahy Sarah Basophils/100 WBC (Bld) 0.9 % Normal 0.2-2.0 [facility] [facility] Comment on above: Performed By: #### C BC #### [facility] [address] [place] [address] Dr. Anahy Sarah EO # 0.1 103/ul Normal 0.0-0.7 [facility] Comment on above: Performed By: #### C BC #### [facility] [address] [place] [address] Dr. Anahy Sarah Eosinophils/100 WBC (Bld) 1.3 % Normal 0.9-7.0 [facility] Comment on above: Performed By: #### C BC #### [facility] [address] [place] [address] Dr. Anahy Sarah Erythrocyte distribution width (RBC) [Ratio] 12.6 % Normal 11.0-15.0 [facility] Comment on above: Performed By: #### C BC #### [facility] [address] [place] [address] Dr. Anahy Sarah Hematocrit (Bld) [Volume fraction] 35.5 % Critically low 36.0-48.0 [facility] Comment on above: Performed By: #### C BC #### [facility] [address] [place] [address] Dr. Anahy Sarah Hemoglobin (Bld) [Mass/Vol] 11.5 g/dL Critically low 12.0-16.0 [facility] Comment on above: Performed By: #### C BC #### [facility] [address] [place] [address] Dr. Anahy Sarah IG # 0.02 10e3/ul Normal 0.00-0.03 [facility] Comment on above: Performed By: #### C BC #### [facility] [address] [place] [address] Dr. Anahy Sarah IG % 0.2 % Normal 0.0-0.5 [facility] Comment on above: Performed By: #### C BC #### [facility] [address] [place] [address] Dr. Anahy Sarah LYMPH # 2.5 103/ul Normal 1.2-3.8 [facility] Comment on above: Performed By: #### C BC #### [facility] [address] [place] [address] Dr. Anahy Sarah Lymphocytes/100 WBC (Bld) 26.3 % Normal 20.5-60.0 [facility] Comment on above: Performed By: #### C BC #### [facility] [address] [place] [address] Dr. Anahy Sarah MANUAL DIFF REQ NO Normal [facility] Comment on above: Performed By: #### C BC #### [facility] [address] [place] [address] Dr. Anahy Sarah MCH (RBC) [Entitic mass] 28.8 pg Normal 26.7-34.0 [facility] Comment on above: Performed By: #### C BC #### [facility] [address] [place] [address] Dr. Anahy Sarah MCHC (RBC) [Mass/Vol] 32.4 g/dL Normal 29.9-35.2 [facility] Comment on above: Performed By: #### C BC #### [facility] [address] [place] [address] Dr. Anahy Sarah MCV (RBC) [Entitic vol] 88.8 fL Normal 81.0-99.0 [facility] Comment on above: Performed By: #### C BC #### [facility] [address] [place] [address] Dr. Anahy Sarah MONO # 0.7 103/ul Normal 0.3-0.8 [facility] Comment on above: Performed By: #### C BC #### [facility] [address] [place] [address] Dr. Anahy Sarah Monocytes/100 WBC (Bld) 7.1 % Normal 1.7-12.0 [facility] Comment on above: Performed By: #### C BC #### [facility] [address] [place] [address] Dr. Anahy Sarah NEUT # 6.0 103/ul Normal 1.4-6.5 [facility] Comment on above: Performed By: #### C BC #### [facility] [address] [place] [address] Dr. Anahy Sarah Neutrophils/100 WBC (Bld) 64.2 % Normal 43.0-75.0 [facility] Comment on above: Performed By: #### C BC #### [facility] [address] [address] [address] Anahy Sarah Platelet mean volume (Bld) [Entitic vol] 10.1 fL Normal 9.5-13.5 [facility] Comment on above: Performed By: #### C BC #### [facility] [address] [address] [address] Anahy Sarah PLT 287 103/ul Normal 150-450 [facility] Comment on above: Performed By: #### C BC #### [facility] [address] [address] [address] Anahy Sarah RBC 4.00 106/ul Critically low 4.20-5.40 [facility] Comment on above: Performed By: #### C BC #### [facility] [address] [place] [address] Dr. Anahy Sarah WBC 9.4 103/ul Normal 4.0-11.0 [facility] Comment on above: Performed By: #### C BC #### [facility] [address] [place] [address] Dr. Anahy Sarah GLYCOHEMOGLOBIN A1Con 2021 ADA RECOMMENDATION SEE BELOW Normal [facility] Comment on above: Result Comment: ADA RECOMMENDED LIMIT 4.0 - 6.0 ADA THERAPEUTIC TARGET < 7.0 ACTION SUGGESTED > 7.0 Performed By: #### A 1C #### [facility] [address] [place] [address] Dr. Anahy Sarah Glucose [Mass/Vol] 111 mg/dL Normal [facility] Comment on above: Performed By: #### A 1C #### [facility] [address] [place] [address] Dr. Anahy Sarah HbA1c (Bld) [Mass fraction] 5.5 % Normal 4.5-6.2 [facility] Comment on above: Performed By: #### A 1C #### [facility] [address] [place] [address] Dr. Anahy Sarah LIPID PROFILEon 04-12-2022 CHOL-HDL RATIO NORM SEE BELOW Normal [facility] Comment on above: Result Comment: 3.3 - 4.4 LOW RISK 4.4 - 7.1 AVERAGE RISK 7.1 - 11.0 MODERATE RISK >11.0 HIGH RISK Performed By: #### C MP, LIPID #### [facility] [address] [address] [address] Anahy Sarah Cholesterol [Mass/Vol] 168 mg/dL Normal <=200 [facility] Comment on above: Performed By: #### C MP, LIPID #### [facility] [address] [address] [address] Anahy Sarah Cholesterol in HDL [Mass/Vol] 47 mg/dL Normal 40-60 [facility] Comment on above: Performed By: #### C MP, LIPID #### [facility] [address] [place] [address] Dr. Anahy Sarah Cholesterol in LDL [Mass/Vol] 81.8 mg/dL Normal [facility] Comment on above: Performed By: #### C MP, LIPID #### [facility] [address] [place] [address] Dr. Anahy Sarah Cholesterol.total/Choles terol in HDL [Mass ratio] 3.6 {ratio} Normal [facility] Comment on above: Performed By: #### C MP, LIPID #### [facility] [address] [place] [address] Dr. Anahy Sarah HDL NORMAL > or = 60 mg/dl - LOW CARDIOVASCULAR RISK <40 mg/dl - HIGH CARDIOVASCULAR RISK Normal [facility] Comment on above: Performed By: #### C MP, LIPID #### [facility] [address] [place] [address] Dr. Anahy Sarah LDL CALC NORMAL SEE BELOW Normal [facility] Comment on above: Result Comment: <100 mg/dl OPTIMAL 100 - 129 mg/dl NEAR OR ABOVE OPTIMAL 130 - 159 mg/dl BORDERLINE HIGH 160 - 189 mg/dl HIGH >190 mg/dl VERY HIGH Performed By: #### C MP, LIPID #### [facility] [address] [place] [address] Dr. Anahy Sarah Triglyceride [Mass/Vol] 196 mg/dL Critically high <=150 [facility] Comment on above: Performed By: #### C MP, LIPID #### [facility] [address] [address] [address] Anahy Sarah VLDL CALC 39.2 mg/dL Normal [facility] Comment on above: Performed By: #### C MP, LIPID #### [facility] [address] [address] [address] Anahy Sarah PROF 14(COMP METB)on 022 Albumin [Mass/Vol] 3.5 g/dL Normal 3.4-5.0 [facility] Comment on above: Performed By: #### C MP, LIPID #### [facility] [address] [place] [address] Dr. Anahy Sarah Albumin/Globulin [Mass ratio] 0.9 {ratio} Normal [facility] Comment on above: Performed By: #### C MP, LIPID #### [facility] [address] [place] [address] Dr. Anahy Sarah ALP [Catalytic activity/Vol] 54 U/L Normal 46-116 [facility] Comment on above: Performed By: #### C MP, LIPID #### [facility] [address] [place] [address] Dr. Anahy Sarah ALT [Catalytic activity/Vol] 21 U/L Normal 14-59 [facility] Comment on above: Performed By: #### C MP, LIPID #### [facility] [address] [place] [address] Dr. Anahy Sarah Anion gap [Moles/Vol] 13.3 mmol/L Normal [facility] Comment on above: Performed By: #### C MP, LIPID #### [facility] [address] [place] [address] Dr. Anahy Sarah AST [Catalytic activity/Vol] 14 U/L Critically low 15-37 [facility] Comment on above: Performed By: #### C MP, LIPID #### [facility] [address] [address] [address] Anahy Sarah Bilirubin [Mass/Vol] 0.4 mg/dL Normal 0.2-1.0 [facility] Comment on above: Performed By: #### C MP, LIPID #### [facility] [address] [address] [address] Anahy Sarah Calcium [Mass/Vol] 8.5 mg/dL Normal 8.5-10.1 [facility] Comment on above: Performed By: #### C MP, LIPID #### [facility] [address] [address] [address] Anahy Sarah Chloride [Moles/Vol] 105 mmol/L Normal 98-107 [facility] Comment on above: Performed By: #### C MP, LIPID #### [facility] [address] [place] [address] Dr. Anahy Sarah CO2 [Moles/Vol] 23.4 mmol/L Normal 21.0-32.0 [facility] Comment on above: Performed By: #### C MP, LIPID #### [facility] [address] [place] [address] Dr. Anahy Sarah Creatinine [Mass/Vol] 0.74 mg/dL Normal 0.55-1.02 [facility] Comment on above: Performed By: #### C MP, LIPID #### [facility] [address] [place] [address] Dr. Anahy Sarah EGFR-AF [facility] LUCIAN >60 Normal >=60 [facility] Comment on above: Performed By: #### C MP, LIPID #### [facility] [address] [place] [address] Dr. Anahy Sarah EGFR-NON AF [facility] LUCIAN >60 Normal >=60 [facility] Comment on above: Performed By: #### C MP, LIPID #### [facility] [address] [place] [address] Dr. Anahy Sarah Globulin (S) [Mass/Vol] 3.7 g/dL Normal [facility] Comment on above: Performed By: #### C MP, LIPID #### [facility] [address] [place] [address] Dr. Anahy Sarah Glucose [Mass/Vol] 96 mg/dL Normal 74-106 [facility] Comment on above: Performed By: #### C MP, LIPID #### [facility] [address] [address] [address] Anahy Sarah Potassium [Moles/Vol] 3.7 mmol/L Normal 3.5-5.1 [facility] Comment on above: Performed By: #### C MP, LIPID #### [facility] [address] [address] [address] Anahy Sarah Protein [Mass/Vol] 7.2 g/dL Normal 6.4-8.2 [facility] Comment on above: Performed By: #### C MP, LIPID #### [facility] [address] [address] [address] Anahy Sarah Sodium [Moles/Vol] 138 mmol/L Normal 136-145 [facility] Comment on above: Performed By: #### C MP, LIPID #### [facility] [address] [place] [address] Dr. Anahy Sarah Urea nitrogen [Mass/Vol] 6.0 mg/dL Critically low 7.0-18. 0 [facility] Comment on above: Performed By: #### C MP, LIPID #### [facility] [address] [place] [address] Dr. Anahy Sarah Urea nitrogen/Creatinine [Mass ratio] 8.1 mg/mg [facility] Comment on above: Performed By: #### C MP, LIPID #### [facility] [address] [place] [address] Dr. Anahy Sarah PAP ACOG PANEL 2: 30 to 65on 03-09-2022 . . Normal [facility] Comment on above: Result Comment: Perf ormed at: WB Performed By: #### [id number] #### [facility] [address] [place] [address] Dr. Anahy Sarah Age Gdln ACOG Testing - [facility] Comment on above: Performed By: #### [id number] #### [facility] [address] [place] [address] Dr. Anahy Sarah DIAGNOSIS: Comment Normal [facility] Comment on above: Result Comment: NEGA TIVE FOR INTRAEPITHELIAL LESION OR MALIGNANCY. Performed at: WB Performed By: #### [id number] #### [facility] [address] [place] [address] Dr. Anahy Sarah HPV Aptima Negative Normal Negative [facility] Comment on above: Result Comment: This nucleic acid amplification test detects fourteen high-risk HPV types (16,18,31,33,35,39,45,51,52,56,58,59,66,68) without differentiation. Performed at: =G Performed By: #### [id number] #### [facility] [address] [place] [address] Dr. Anahy Sarah Methodology: Comment Normal [facility] Comment on above: Result Comment: This liquid based ThinPrep(R) pap test was screened with the use of an image guided system. Performed at: WB Performed By: #### [id number] #### [facility] [address] [place] [address] Dr. Anahy Sarah Note: Comment Normal [facility] Comment on above: Result Comment: The Pap smear is a screening test designed to aid in the detection of premalignant and malignant conditions of the uterine cervix. It is not a diagnostic procedure and should not be used as the sole means of detecting cervical cancer. Both false-positive and false-negative reports do occur. . Performed at: WB Performed By: #### [id number] #### [facility] [address] [place] [address] Dr. Anahy Sarah Performed by: Comment Normal [facility] Comment on above: Result Comment: Nayla Garcia, Field Test Engineer (ASCP) Performed at: WB Performed By: #### [id number] #### [facility] [address] [place] [address] Dr. Anahy Sarah Specimen adequacy: Comment Normal [facility] Comment on above: Result Comment: Sati sfactory for evaluation. Endocervical and/or squamous metaplastic cells (endocervical component) are present. Performed at: WB Performed By: #### [id number] #### [facility] [address] [place] [address] Dr. Anahy Sarah COVID Quick Testingon 2021 Result Negative [employer] Other Quick Fluon 10-12-2021 FLUAV Ab CF (S) [Titer] Negative N [employer] Other FLUBV Ab CF (S) [Titer] Negative N [employer] Other S. pyogenes Ag Ql (Throat)on 10-12-2021 S. pyogenes Org specific cx Ql (Throat) Positive [facility] Other Vital Signs Date Time Vital Sign Value Performing Clinician Facility 09-14-2024 10:26-0500 Body height 165.1 cm Darlene Julien [employer] ENGINEER Work Phone: [facility] 09-14-2024 10:26-0500 Body mass index (BMI) [Ratio] 39.27 kg/m2 Darlene Julien [employer] SH[employer] ENGINEER Work Phone: [facility] 09-14-2024 10:26-0500 Body weight 107.05 kg Darlene Armond [employer] SHIFT ENGINEER Work Phone: [facility] 09-10-2024 09:47-0500 Body mass index (BMI) [Ratio] 40.4 kg/m2 Lucinda Rodriguez CONT[employer]OUS [employer]ESS [employer]EE ROASTER Work Phone: [facility] 09-10-2024 09:47-0500 Body temperature 98.29 [degF] Lucinda Rodriguez [employer] RO[employer]ER Work Phone: [facility] 09-10-2024 09:47-0500 Body weight 110.13 kg Lucinda Rodriguez [employer] RO[employer]ER Work Phone: [facility] 09-10-2024 09:47-0500 Diastolic blood pressure 98 mm[Hg] Lucinda Rodriguez [employer] RO[employer]ER Work Phone: [facility] 09-10-2024 09:47-0500 Heart rate 98 /min Lucinda Rodriguez [employer] RO[employer]ER Work Phone: [facility] 09-10-2024 09:47-0500 Respiratory rate 18 /min Lucinda Rodriguez [employer] RO[employer]ER Work Phone: [facility] 09-10-2024 09:47-0500 SaO2% (BldA) [Mass fraction] 98 % Lucinda Jennifer [employer] RO[employer]ER Work Phone: [facility] 09-10-2024 09:47-0500 Systolic blood pressure 128 mm[Hg] Lucinda Jennifer [employer] RO[employer]ER Work Phone: [facility] 08-21-2024 15:00-0500 SaO2% (BldA) [Mass fraction] 96 % Melani Zaman MD Work Phone: [facility] 08-21-2024 14:45-0500 Diastolic blood pressure 88 mm[Hg] Melani Zaman MD Work Phone: [facility] 08-21-2024 14:45-0500 Heart rate 90 /min Melani Zaman MD Work Phone: [facility] 08-21-2024 14:45-0500 Respiratory rate 19 /min Melani Zaman MD Work Phone: [facility] 08-21-2024 14:45-0500 Systolic blood pressure 142 mm[Hg] Melani Zaman MD Work Phone: [facility] 08-21-2024 14:19-0500 Body temperature 97 [degF] Melani Zaman MD Work Phone: [facility] 08-21-2024 12:22-0500 Body height 165.1 cm Melani Zaman MD Work Phone: [facility] 08-21-2024 12:22-0500 Body mass index (BMI) [Ratio] 39.25 kg/m2 Melani Zaman MD Work Phone: [facility] 08-21-2024 12:22-0500 Body weight 107 kg Melani Zaman MD Work Phone: [facility] 07-07-2024 11:31-0500 Body height 165.1 cm Darlene Armond [employer] SHIFT ENGINEER Work Phone: [facility] 07-07-2024 11:31-0500 Body mass index (BMI) [Ratio] 39.27 kg/m2 Darlene Julien [employer] SHIFT ENGINEER Work Phone: [facility] 07-07-2024 11:31-0500 Body weight 107.05 kg Darlene Armond [employer] SHIFT ENGINEER Work Phone: [facility] 06-26-2024 14:26-0500 Body temperature 97.2 [degF] Melani Zaman MD Work Phone: [facility] 06-26-2024 14:26-0500 Diastolic blood pressure 72 mm[Hg] Melani Zaman MD Work Phone: [facility] 06-26-2024 14:26-0500 Heart rate 97 /min Melani Zaman MD Work Phone: [facility] 06-26-2024 14:26-0500 Respiratory rate 18 /min Melani Zaman MD Work Phone: [facility] 06-26-2024 14:26-0500 SaO2% (BldA) [Mass fraction] 95 % Melani Zaman MD Work Phone: [facility] 06-26-2024 14:26-0500 Systolic blood pressure 124 mm[Hg] Melani Zaman MD Work Phone: [facility] 06-26-2024 06:27-0500 Body height 165.1 cm Melani Zaman MD Work Phone: [facility] 06-26-2024 06:27-0500 Body mass index (BMI) [Ratio] 39.47 kg/m2 Melani Zaman MD Work Phone: [facility] 06-26-2024 06:27-0500 Body weight 107.6 kg Melani Zaman MD Work Phone: [facility] 05-18-2024 08:55-0400 Body height 165.1 cm Melani Zaman MD Work Phone: [facility] 05-18-2024 08:55-0400 Body mass index (BMI) [Ratio] 40.6 kg/m2 Melani Zaman MD Work Phone: [facility] 05-18-2024 08:55-0400 Body weight 110.68 kg Melani Zaman MD Work Phone: [facility] 05-18-2024 08:55-0400 Diastolic blood pressure 89 mm[Hg] Melani Zaman MD Work Phone: [facility] 05-18-2024 08:55-0400 Heart rate 85 /min Melani Zaman MD Work Phone: [facility] 05-18-2024 08:55-0400 Systolic blood pressure 146 mm[Hg] Melani Zaman MD Work Phone: [facility] 03-12-2024 09:33-0400 Body height 165.1 cm Lucinda Aichholz CONTIN[employer]OUS [employer] RO[employer]ER Work Phone: [facility] 03-12-2024 09:33-0400 Body mass index (BMI) [Ratio] 39.8 kg/m2 Lucinda Aichholz [employer] RO[employer]ER Work Phone: [facility] 03-12-2024 09:33-0400 Body temperature 98.49 [degF] Lucinda Aichholz [employer] RO[employer]ER Work Phone: [facility] 03-12-2024 09:33-0400 Body weight 108.5 kg Lucinda Aichholz CONTIN[employer] RO[employer]ER Work Phone: [facility] 03-12-2024 09:33-0400 Diastolic blood pressure 88 mm[Hg] Lucinda Aichholz [employer]IN[employer] RO[employer]ER Work Phone: [facility] 03-12-2024 09:33-0400 Heart rate 83 /min Lucinda Aichholz [employer]IN[employer] RO[employer]ER Work Phone: [facility] 03-12-2024 09:33-0400 Respiratory rate 18 /min Lucinda Rodriguez [employer]IN[employer] RO[employer]ER Work Phone: [facility] 03-12-2024 09:33-0400 SaO2% (BldA) [Mass fraction] 99 % Lucinda Rodriguez [employer] RO[employer]ER Work Phone: [facility] 03-12-2024 09:33-0400 Systolic blood pressure 118 mm[Hg] Lucinda Rodriguez CONTIN[employer]OUS PROCESS [employer]FFEE ROASTER Work Phone: [facility] [employer] 06-24-2023 11:15-0500 Body height 167.64 cm Oly Cervantesmond Other [employer] Other 06-24-2023 11:15-0500 Body mass index (BMI) [Ratio] 38.73 kg/m2 Oly Brianna Other [employer] Other 06-24-2023 11:15-0500 Body temperature 99.8 [degF] Oly Cervantesmond Other [employer] Other 06-24-2023 11:15-0500 Body weight 108.86 kg Oly Cervantesmond Other [facility] Other 06-24-2023 11:15-0500 Respiratory rate 19 /min Oly Brianna Other [employer] Other 06-24-2023 11:15-0500 SaO2% (BldA) [Mass fraction] 98 % Oly Brianna Other [facility] Other 06-11-2023 12:20-0500 Body height 167.64 cm Alice Tamez Other [employer] Other 06-11-2023 12:20-0500 Body mass index (BMI) [Ratio] 39.25 kg/m2 Alice Tamez Other [employer] Other 06-11-2023 12:20-0500 Body temperature 98.4 [degF] Alice Tamez Other [employer] Other 06-11-2023 12:20-0500 Body weight 110.32 kg Alice Tamez Other [employer] Other 06-11-2023 12:20-0500 Diastolic blood pressure 93 mm[Hg] Alice Tamez Other [employer] Other 06-11-2023 12:20-0500 Respiratory rate 18 /min Alice Tamez Other [facility] Other 06-11-2023 12:20-0500 SaO2% (BldA) [Mass fraction] 97 % Alice Tamez Other [employer] Other 06-11-2023 12:20-0500 Systolic blood pressure 144 mm[Hg] Alice Tamez Other [employer] Other 10-12-2021 10:20-0400 Body height 167.64 cm Alice Tamez Other [employer] Other 10-12-2021 10:20-0400 Body mass index (BMI) [Ratio] 38.73 kg/m2 Alice Tamez Other [employer] Other 10-12-2021 10:20-0400 Body temperature 98.3 [degF] Alice Tamez Other [employer] Other 10-12-2021 10:20-0400 Body weight 108.86 kg Alice Tamez Other [facility] Other 10-12-2021 10:20-0400 Respiratory rate 18 /min Alice Tamez Other [employer] Other 10-12-2021 10:20-0400 SaO2% (BldA) [Mass fraction] 97 % Alice Tamez Other [employer] Other Encounters Encounter Date Encounter Type Care Provider Facility Start: 09-21-2024 End: 09-21-2024 Telemedicine consultation with patient Melani Zaman MD Work Phone: [facility] Comment on above: PCOS (polycystic ova rajendra syndrome) (Primary Dx); Postop check Start: 09-21-2024 End: 09-21-2024 ambulatory MELANI ZAMAN [facility] Start: 09-14-2024 End: 09-14-2024 Telemedicine consultation with patient Darlene Julien [employer]OV[employer] SHIFT ENGINEER Work Phone: [facility] Comment on above: Postop check (Primar y Dx) Start: 09-14-2024 End: 09-14-2024 ambulatory DARLENE JULIEN [facility] Start: 09-10-2024 End: 09-10-2024 Bamboo flowsheet Lucinda Rodriguez CONTINUOUS PROCESS COFFEE ROASTER Work Phone: [facility] Start: 09-10-2024 End: 09-10-2024 Bamboo flowsheet Lucinda Rodriguez CONTINUOUS PROCESS COFFEE ROASTER Work Phone: [facility] Start: 09-10-2024 End: 09-10-2024 Patient encounter status Lucinda Rodriguez CONTINUOUS PROCESS COFFEE ROASTER Work Phone: [facility] Start: 09-10-2024 End: 09-10-2024 Periodic preventive med est patient 18-39 yrs Lucinda Rodriguez CONTINUOUS PROCESS COFFEE ROASTER Work Phone: [facility] Comment on above: Encounter for wellne ss examination in adult (Primary Dx); Morbid (severe) obesity due to excess calories (CMS/HCC); Body mass index (BMI) 39.0-39.9, adult; Mild intermittent asthma without complication (CMS/HCC); Insulin resistance; PCOS (polycystic ovarian syndrome); Iron deficiency anemia, unspecified iron deficiency anemia type; Elevated blood pressure reading Start: 09-10-2024 End: 09-10-2024 ambulatory LUCINDA JENNIFER Not Available Start: 09-05-2024 End: 09-07-2024 Refill Lucinda Jennifer CONTINUOUS PROCESS COFFEE ROASTER Work Phone: [facility] Comment on above: Iron deficiency anem ia, unspecified iron deficiency anemia type Start: 08-21-2024 End: 08-26-2024 Clinisync Result Encounter Generic External Data Provider [facility] External Department Unsolicited Start: 08-21-2024 End: 08-26-2024 Clinisync Result Encounter Generic External Data Provider [facility] External Department Unsolicited Start: 08-21-2024 End: 08-21-2024 Subsequent hospital visit by physician Melani Zaman MD Work Phone: [facility] [place] Comment on above: Submucous uterine fi broid (Primary Dx); Post-operative state Start: 08-13-2024 End: 08-13-2024 Refill Lucinda Rodriguez CONTINUOUS PROCESS COFFEE ROASTER Work Phone: [facility] Comment on above: Mild intermittent as thma, unspecified whether complicated (CMS/HCC) Start: 08-10-2024 End: 08-10-2024 ambulatory MELANI ZAMAN [facility] Start: 07-29-2024 ambulatory MELANI ZAMAN [facility] Start: 07-24-2024 End: 09-10-2024 Clinisync Result Encounter Generic External Data Provider [facility] External Department Unsolicited Start: 07-24-2024 End: 09-10-2024 Clinisync Result Encounter Generic External Data Provider [facility] External Department Unsolicited Start: 07-24-2024 End: 07-24-2024 Patient encounter procedure Darlene R Armond ARMATURE WINDER REPAIR-POWER AND RECOVERY SHIFT ENGINEER Work Phone: [facility] Comment on above: Intramural, submucou s, and subserous leiomyoma of uterus (Primary Dx); Encounter for preprocedural laboratory examination Start: 07-24-2024 End: 07-24-2024 Patient encounter status Darlene Julien ARMATURE WINDER REPAIR-POWER AND RECOVERY SHIFT ENGINEER Work Phone: [facility] Start: 07-24-2024 End: 07-24-2024 ambulatory DARLENE JULIEN [facility] Start: 07-24-2024 End: 07-24-2024 Encounter for preprocedural laboratory examination DARLENE JULIEN [facility] Start: 07-07-2024 End: 07-07-2024 Telemedicine consultation with patient Darlene Julien ARMATURE WINDER REPAIR-POWER AND RECOVERY SHIFT ENGINEER Work Phone: [facility] Comment on above: Postop check (Primar y Dx) Start: 07-07-2024 End: 07-07-2024 ambulatory DARLENE JULIEN [facility] Start: 06-26-2024 End: 06-26-2024 Subsequent hospital visit by physician Melani Zaman MD Work Phone: [facility] [place] Comment on above: Intramural, submucou s, and subserous leiomyoma of uterus (Primary Dx); Post-operative state Start: 06-25-2024 End: 06-25-2024 ambulatory LUCINDA SPARKSOLEGARIO [facility] Start: 06-25-2024 End: 06-25-2024 Clinisync Result Encounter Generic External Data Provider [facility] External Department Unsolicited Start: 06-25-2024 End: 06-25-2024 Clinisync Result Encounter Generic External Data Provider [facility] External Department Unsolicited Start: 06-03-2024 End: 06-03-2024 Subsequent hospital visit by physician Kandy Huff M[facility] Comment on above: Uterine leiomyoma, u nspecified location Start: 06-03-2024 End: 06-03-2024 ambulatory MELANI ZAMAN [facility] Start: 05-19-2024 ambulatory MELANI ZAMAN [facility] Start: 05-18-2024 End: 05-18-2024 ambulatory MELANI AUSTYN [facility] Start: 05-18-2024 End: 05-18-2024 Encounter for other preprocedural examination MELANI AUSTYN [facility] Start: 05-18-2024 End: 05-18-2024 Patient encounter procedure Melani Zaman MD Work Phone: [facility] Comment on above: Uterine leiomyoma, u nspecified location (Primary Dx); PCOS (polycystic ovarian syndrome); Fertility testing; Screening for diabetes mellitus; Abnormal uterine bleeding Start: 05-18-2024 End: 05-18-2024 ambulatory MELANI ZAMAN [facility] Start: 03-25-2024 End: 03-25-2024 Refill Lucinda Rodriguez CONTINUOUS PROCESS COFFEE ROASTER Work Phone: [facility] Comment on above: Iron deficiency anem ia, unspecified iron deficiency anemia type (Primary Dx) Start: 03-18-2024 End: 03-18-2024 Clinisync Result Encounter Lucinda Rodriguez NP Work Phone: [facility] External Department Unsolicited Start: 03-18-2024 End: 03-18-2024 Clinisync Result Encounter Lucinda Rodriguez NP Work Phone: [facility] Department Unsolicited Start: 03-12-2024 End: 03-12-2024 Bamboo flowsheet Lucinda Rodriguez CONTINUOUS PROCESS COFFEE ROASTER Work Phone: [facility] Start: 03-12-2024 End: 03-12-2024 Bamboo flowsheet Lucinda Rodriguez CONTINUOUS PROCESS COFFEE ROASTER Work Phone: [facility] Start: 03-12-2024 End: 03-12-2024 Office outpatient visit 15 minutes Lucinda Rodriguez NP Work Phone: [facility] Comment on above: Iron deficiency anem ia, unspecified iron deficiency anemia type (Primary Dx); Class 2 obesity due to excess calories without serious comorbidity with body mass index (BMI) of 39.0 to 39.9 in adult; Mild intermittent asthma, unspecified whether complicated ([facility]) Start: 03-12-2024 End: 03-12-2024 ambulatory LUCINDA ADRIANAJazminOLEGARIO Not Available Start: 02-03-2024 End: 02-03-2024 ambulatory SHAMA ASH Not Available Start: 01-24-2024 End: 01-24-2024 ambulatory PHYSICIAN NO [facility] Work Phone: Start: 01-24-2024 End: 01-24-2024 Departed Referred PHYSICIAN NO [facility] Start: 01-07-2024 End: 01-07-2024 ambulatory ABEL KIM Not Available Start: 12-23-2023 End: 12-23-2023 ambulatory ABEL KIM Not Available Start: 11-25-2023 End: 11-25-2023 ambulatory ABEL KIM Not Available Start: 11-12-2023 End: 11-12-2023 Departed Referred PHYSICIAN NO [facility] Start: 11-12-2023 End: 11-12-2023 ambulatory PHYSICIAN NO [facility] Work Phone: Start: 10-14-2023 End: 10-14-2023 ambulatory ABEL KIM Not Available Start: 10-01-2023 End: 10-01-2023 ambulatory LUCINDA ADRIANAJazminSUHAZ Not Available Start: 08-22-2023 Patient encounter status Lucinda Adrianajazminolegario CONTINUOUS PROCESS COFFEE ROASTER Work Phone: [facility] Start: 06-24-2023 End: 06-24-2023 ambulatory Oly Reed Other [facility] Other Start: 06-24-2023 Office outpatient vi sit 15 minutes Oly Reed [facility] Start: 06-11-2023 End: 06-11-2023 ambulatory Alice Tamez Other [facility] Other Start: 06-11-2023 Office outpatient vi sit 25 minutes Alice Tamez [facility] Start: 08-01-2022 End: 08-01-[address] JANET LANDON Facility:[facility] Start: 04-17-2022 Encounter for genera l adult medical examination without abnormal findings DR JANET LANDON [facility] Start: 04-12-2022 End: 04-13-[address] JANET LANDON Facility:[facility] Start: 04-12-2022 End: 04-13-2022 Encounter for general adult medical examination without abnormal findings DR JANET LANDON Facility:[facility] Start: 03-05-2022 End: 03-05-[address] JANET LANDON Facility:[facility] Start: 10-12-2021 End: 10-12-2021 ambulatory Alice Tamez Other [facility] Other Start: 10-12-2021 Office outpatient vi sit 15 minutes Alice Tamez [facility] Start: 10-05-2021 End: 10-06-[address] SHEILA LYONS Facility:[facility] Procedures Date Procedure Procedure Detail Performing Clinician Start: 08-21-2024 PULSE OXIMETRY, CONTINUOUS Bailey Gaviria MD Work Phone: Start: 08-21-2024 SURGICAL PATHOLOGY EXAM Generic External Data Provider Start: 08-21-2024 Urine test visual color cmprsankit Zaman MD Work Phone: Start: 07-24-2024 Urine test visual color cmprsn marian Price MD Work Phone: Start: 07-24-2024 TAPING MACHINE OPERATOR SONOHYSTEROGRAM Chleo Julien ARMATURE WINDER REPAIR-POWER AND RECOVERY SHIFT ENGINEER Work Phone: Start: 07-24-2024 US SONOHYSTEROGRAM Gene hussein External Data Provider Start: 06-26-2024 PULSE OXIMETRY, CONTINUOUS Parish Moreno MD Work Phone: Start: 06-26-2024 Urine test visual color mary ellen Zaman MD Work Phone: Start: 06-25-2024 UH CBC AND DIFFERENTIAL Generic External Data Provider Start: 06-03-2024 Mri pelvis w/o & w/c ontrast material Melani Zaman MD Work Phone: Start: 03-18-2024 ALL CBC WITH AUTO DIFF Lucinda Rodriguez CONTINUOUS PROCESS COFFEE ROASTER Work Phone: Start: 04-16-2023 Microscopic observat ion [Identifier] in Cervix by Cyto stain Lucinda Rodriguez NP Work Phone: Plan of Treatment Date Care Activity Detail Author Start: 2041 Zoster Vaccines (1 o f 2) Zoster Vaccines (1 of 2) [facility] Start: 04-16-2028 Screening for malign ant neoplasm of cervix [facility] Start: 04-16-2026 Screening for malign ant neoplasm of cervix [facility] Start: 05-21-2025 Influenza vaccination Influenza Vacc ine (#1) [facility] Comment on above: Postponed from 03/22 (Patient Does Not Have Time) Start: 03-10-2025 End: 03-10-2025 Patient encounter procedure 03/10/2025 9:40 AM EDT Office Visit [facility] [address] [place] [address] Lucinda Rodriguez NP [address] [place] [address] [facility] Start: 09-23-2024 End: 09-23-2024 Patient encounter procedure 09/23/2024 2:00 PM EST Office Visit [facility] [address] [place] [address] Abel Alvarez, [address] [place] [address] [facility] Start: 09-21-2024 End: 09-21-2024 Telemedicine consultation with patient 09/21/2024 8:30 AM EST Telemedicine [facility] [address] [facility] [address] [place] [phone] Melani Zaman MD [address] [place] Banks, [facility] [address] [place] [address] [facility] Start: 09-14-2024 End: 09-14-2024 Telemedicine consultation with patient 09/14/2024 11:45 AM EST Telemedicine [facility] Fernandez[facility]agd[facility] [address] [facility] [address] [place] [phone] Darlene Julien, ARMATURE WINDER REPAIR-POWER AND RECOVERY SHIFT ENGINEER [address] [place] [address] [facility] Start: 09-10-2024 End: 09-10-2025 CBC W Auto Differential panel - Blood CBC and differential Lab Routine Encounter for wellness examination in adult Expected: 09/10/2024 (Approximate), Expires: 09/10/2025 [facility] Work Phone: Comment on above: Expected: 09/10/2024 (Approximate), Expires: 09/10/2025 Start: 09-10-2024 End: 09-10-2025 Cobalamin (Vitamin B12) [Mass/volume] in Serum or Plasma Vitamin B12 Lab Routine Iron deficiency anemia, unspecified iron deficiency anemia type Expected: 09/10/2024 (Approximate), Expires: 09/10/2025 [facility] Comment on above: Expected: 09/10/2024 (Approximate), Expires: 09/10/2025 Start: 09-10-2024 End: 09-10-2025 Comprehensive metabolic 2000 panel - Serum or Plasma Comprehensive metabolic panel Lab Routine Encounter for wellness examination in adult Expected: 09/10/2024 (Approximate), Expires: 09/10/2025 [facility] Comment on above: Expected: 09/10/2024 (Approximate), Expires: 09/10/2025 Start: 09-10-2024 End: 09-10-2025 Ferritin [Mass/volume] in Serum or Plasma Ferritin Lab Routine Iron deficiency anemia, unspecified iron deficiency anemia type Expected: 09/10/2024 (Approximate), Expires: 09/10/2025 [facility] Comment on above: Expected: 09/10/2024 (Approximate), Expires: 09/10/2025 Start: 09-10-2024 End: 09-10-2025 Hemoglobin A1c/Hemoglobin.total in Blood Hemoglobin A1c Lab Routine Insulin resistance PCOS (polycystic ovarian syndrome) Encounter for wellness examination in adult Expected: 09/10/2024 (Approximate), Expires: 09/10/2025 [facility] Comment on above: Expected: 09/10/2024 (Approximate), Expires: 09/10/2025 Start: 09-10-2024 End: 09-10-2025 Insulin, random Insulin, random Lab Routine Insulin resistance PCOS (polycystic ovarian syndrome) Expected: 09/10/2024 (Approximate), Expires: 09/10/2025 [facility] Comment on above: Expected: 09/10/2024 (Approximate), Expires: 09/10/2025 Start: 09-10-2024 End: 09-10-2025 Iron + transferrin + TIBC Iron + transferrin + TIBC Lab Routine Iron deficiency anemia, unspecified iron deficiency anemia type Expected: 09/10/2024 (Approximate), Expires: 09/10/2025 [facility] Comment on above: Expected: 09/10/2024 (Approximate), Expires: 09/10/2025 Start: 09-10-2024 End: 09-10-2025 Lipid 1996 panel - Serum or Plasma Lipid panel Lab Routine Encounter for wellness examination in adult Expected: 09/10/2024 (Approximate), Expires: 09/10/2025 [facility] Comment on above: Expected: 09/10/2024 (Approximate), Expires: 09/10/2025 Start: 09-10-2024 End: 09-10-2025 Thyrotropin [Units/volume] in Serum or Plasma TSH Lab Routine Encounter for wellness examination in adult Expected: 09/10/2024 (Approximate), Expires: 09/10/2025 [facility] Comment on above: Expected: 09/10/2024 (Approximate), Expires: 09/10/2025 Start: 09-10-2024 End: 09-10-2024 Patient encounter procedure [facility] Comment on above: Mild intermittent as thma without complication (CMS/HCC) (Primary Dx); Morbid (severe) obesity due to excess calories (CMS/HCC); Body mass index (BMI) 39.0-39.9, adult; Insulin resistance; PCOS (polycystic ovarian syndrome); Iron deficiency anemia, unspecified iron deficiency anemia type; Encounter for wellness examination in adult Start: 08-21-2024 End: 08-21-2024 Hysteroscopy removal leiomyomata HYSTEROSCOPY, WITH UTERINE MYOMECTOMY Submucous uterine fibroid 08/21/2024 12:53 PM EST [facility] Start: 08-10-2024 End: 08-10-2024 Telemedicine consultation with patient 08/10/2024 12:00 PM EST Telemedicine [facility] [address] [facility] [address] [place] [address] Melani Zaman MD [address] [address] [facility] Start: 07-24-2024 End: 07-24-2024 Patient encounter procedure 07/24/2024 1:30 PM EST Office Visit MELISSA Banks [address] [place] [address] Darlene Julien, ARMATURE WINDER REPAIR-POWER AND RECOVERY SHIFT ENGINEER [address] [place] [address] [facility] Start: 07-07-2024 End: 07-07-2024 Telemedicine consultation with patient 07/07/2024 11:30 AM EST Telemedicine [facility] [address] [place] [phone] Darlene Julien, ARMATURE WINDER REPAIR-POWER AND RECOVERY SHIFT ENGINEER [address] [place] [address] [facility] Start: 06-26-2024 End: 06-26-2024 Admission to same day surgery center 06/26/2024 11:30 AM EST - 06/26/2024 3:30 PM EST Surgery [facility] [place] [address] [place] [address] Melani Zaman MD [address] [facility] Daisy Banks, [facility] [address] [place] [address] Laparoscopic Myomectomy [37819 (CPT )] [facility] [place] Comment on above: Laparoscopic Myomect raza [16399 (CPT )] Start: 06-26-2024 End: 06-26-2024 Chromotubation oviduct w/materials Exploration Laparoscopy with Chromopertubation Intramural, submucous, and subserous leiomyoma of uterus 06/26/2024 11:30 AM EST [facility] Start: 06-26-2024 End: 06-26-2024 Hysteroscopy diagnostic separate procedure HYSTEROSCOPY, DIAGNOSTIC Intramural, submucous, and subserous leiomyoma of uterus 06/26/2024 11:30 AM EST [facility] Start: 06-26-2024 End: 06-26-2024 Laps myomectomy exc 5/> myomas >250 grams MYOMECTOMY, LAPAROSCOPIC Intramural, submucous, and subserous leiomyoma of uterus 06/26/2024 11:30 AM EST [facility] [place] Start: 06-26-2024 Subsequent hospital visit by physician 06/26/2024 10:00 AM EST Hospital Encounter [facility] [place] [address] [place] [address] Melani Zaman MD [address] Banks, [address] [address] [facility] [place] Start: 06-26-2024 End: 06-26-2024 Chromotubation oviduct w/materials Exploration Laparoscopy with Chromopertubation Intramural, submucous, and subserous leiomyoma of uterus 06/26/2024 7:41 AM EST [facility] Start: 06-26-2024 End: 06-26-2024 Hysteroscopy diagnostic separate procedure HYSTEROSCOPY, DIAGNOSTIC Intramural, submucous, and subserous leiomyoma of uterus 06/26/2024 7:41 AM EST [facility] Start: 06-26-2024 End: 06-26-2024 Laps myomectomy exc 5/> myomas >250 grams MYOMECTOMY, LAPAROSCOPIC Intramural, submucous, and subserous leiomyoma of uterus 06/26/2024 7:41 AM EST [facility] [place] Start: 05-18-2024 End: 05-18-2025 CBC panel - Blood by Automated count CBC Lab Routine Abnormal uterine bleeding Expected: 05/18/2024 (Approximate), Expires: 05/18/2025 [facility] Work Phone: Comment on above: Expected: 05/18/2024 (Approximate), Expires: 05/18/2025 Start: 05-18-2024 End: 05-18-2025 Hemoglobin A1c/Hemoglobin.total in Blood Hemoglobin A1C Lab Routine Screening for diabetes mellitus Expected: 05/18/2024 (Approximate), Expires: 05/18/2025 [facility] Work Phone: Comment on above: Expected: 05/18/2024 (Approximate), Expires: 05/18/2025 Start: 05-18-2024 End: 05-18-2025 MR Pelvis WO and W contrast IV MR pelvis w and wo IV contrast Imaging Routine Uterine leiomyoma, unspecified location Expected: 05/18/2024, Expires: 05/18/2025 [facility] Work Phone: Comment on above: Expected: 05/18/2024 , Expires: 05/18/2025 Start: 05-18-2024 End: 05-18-2025 Mullerian inhibiting substance [Mass/volume] in Serum or Plasma Antimullerian Hormone (Amh) Lab Routine PCOS (polycystic ovarian syndrome) Expected: 05/18/2024 (Approximate), Expires: 05/18/2025 [facility] Service Area Work Phone: Comment on above: Expected: 05/18/2024 (Approximate), Expires: 05/18/2025 Start: 05-06-2024 End: 05-06-2024 Patient encounter procedure 05/06/2024 9:00 AM EDT Office Visit [facility] [address] [facility] [address] [place] [phone] Shama Ash PA [address] [facility] [facility] [address] [place], [place] [id number] [facility] OB Start: 04-08-2024 End: 04-08-2024 Patient encounter procedure 04/08/2024 3:00 PM EDT Office Visit [facility] [address] [facility] [place] [address] Abel Alvarez DO [address] [facility] [facility] [address] [place], [place] [id number] [facility] OB Start: 03-25-2024 End: 03-25-2025 Measurement of occult blood in single stool specimen Occult blood x 1, stool Lab Routine Iron deficiency anemia, unspecified iron deficiency anemia type Expected: 03/25/2024 (Approximate), Expires: 03/25/2025 [facility] Work Phone: Comment on above: Expected: 03/25/2024 (Approximate), Expires: 03/25/2025 Start: 03-22-2024 COVID-19 Vaccine ( season) COVID-19 Vaccine ( season) [facility] Start: 03-22-2024 COVID-19 Vaccine ( season) COVID-19 Vaccine ( season) [facility] Start: 03-22-2024 Influenza vaccination Influenza Vacc ine (#1) [facility] Start: 03-12-2024 End: 03-12-2025 CBC W Auto Differential panel - Blood CBC and differential Lab Routine Iron deficiency anemia, unspecified iron deficiency anemia type Expected: 03/12/2024 (Approximate), Expires: 03/12/2025 [facility] Work Phone: Comment on above: Expected: 03/12/2024 (Approximate), Expires: 03/12/2025 Start: 03-12-2024 End: 03-12-2025 Ferritin [Mass/volume] in Serum or Plasma Ferritin Lab Routine Iron deficiency anemia, unspecified iron deficiency anemia type Expected: 03/12/2024 (Approximate), Expires: 03/12/2025 [facility] Comment on above: Expected: 03/12/2024 (Approximate), Expires: 03/12/2025 Start: 03-12-2024 End: 03-12-2025 Iron and Iron binding capacity panel - Serum or Plasma Iron level Lab Routine Iron deficiency anemia, unspecified iron deficiency anemia type Expected: 03/12/2024 (Approximate), Expires: 03/12/2025 [facility] Comment on above: Expected: 03/12/2024 (Approximate), Expires: 03/12/2025 Start: 03-12-2024 End: 03-12-2024 Patient encounter procedure 03/12/2024 9:20 AM EDT Office Visit [facility] [address] [place] [address] Lucinda Rodriguez NP [address] [place] [address] Iron deficiency anemia, unspecified iron deficiency anemia type (Primary Dx); Insulin resistance [facility] Comment on above: Iron deficiency anem ia, unspecified iron deficiency anemia type (Primary Dx); Insulin resistance Start: 12-30-2021 DTaP/Tdap/Td Vaccine s (2 - Td or Tdap) DTaP/Tdap/Td Vaccines (2 - Td or Tdap) [facility] Start: 02-19-2012 Screening for malign ant neoplasm of cervix HPV/Cotest [facility] Start: 2010 Pneumococcal Vaccine : Pediatrics and At-Risk Adult Patients (1 of 2 - PCV) Pneumococcal Vaccine: Pediatrics and At-Risk Adult Patients (1 of 2 - PCV) [facility] Start: 2010 Urine screening for protein CKD: Urine Protein Screening [facility] Start: 2009 Hepatitis C screening Hepatitis C Sc reening [facility] Start: 02-19-2004 Varicella vaccination Varicell a Vaccines (1 of 2 - 13+ 2-dose series) [facility] Start: 1997 Pneumococcal Vaccine : Pediatrics (0 to 5 Years) and At-Risk Patients (6 to 64 Years) (1 of 2 - PCV) Pneumococcal Vaccine: Pediatrics (0 to 5 Years) and At-Risk Patients (6 to 64 Years) (1 of 2 - PCV) [facility] Start: 02-19-1992 MMR Vaccines (1 of 1 - Standard series) MMR Vaccines (1 of 1 - Standard series) [facility] Start: 1991 HIV screening HIV Screening [facility] Start: 1991 Lipid panel Lipid Panel [facility] Start: 1991 Yearly Adult Physical Yearly Adult P hysical [facility] End: 06-26-2024 Blood type and Indirect antibody screen panel - Blood Type And Screen Lab Timed As needed (Lab) until discontinued starting 06/26/2024 [facility] Service Area Work Phone: Comment on above: As needed (Lab) unti l discontinued starting 06/26/2024 End: 08-21-2024 Blood type and Indirect antibody screen panel - Blood Type And Screen Lab Timed As needed (Lab) until discontinued starting 08/21/2024 [facility] Service Area Work Phone: Comment on above: As needed (Lab) unti l discontinued starting 08/21/[address] w/materials Exploration Laparoscopy with Chromopertubation Intramural, submucous, and subserous leiomyoma of uterus [facility] [place] Hysteroscopy diagnos tic separate procedure HYSTEROSCOPY, DIAGNOSTIC Intramural, submucous, and subserous leiomyoma of uterus Virtual AHU A OR Hysteroscopy removal leiomyomata HYSTEROSCOPY, WITH UTERINE MYOMECTOMY Submucous uterine fibroid Virtual AHU A OR Laps myomectomy exc 5/> myomas >250 grams MYOMECTOMY, LAPAROSCOPIC Intramural, submucous, and subserous leiomyoma of uterus Virtual AHU A OR Surgical pathology study [facility] Work Phone: Comment on above: Release Upon Orderin g for 1 Occurrences starting 06/26/2024, 1 completed Surgical pathology study [facility] Work Phone: Comment on above: Release Upon Orderin g for 1 Occurrences starting 08/21/2024, 1 completed US.doppler Uterus an d Fallopian tubes W saline IU US sonohysterogram Imaging Routine Intramural, submucous, and subserous leiomyoma of uterus 07/24/2024 2:36 PM EST [facility] Service Area Work Phone: End: 08-21-2024 VERIFY ABO/Rh Group Test VERIFY ABO/Rh Group Test Lab Routine Once (Lab) for 1 Occurrences starting 08/21/2024 until 08/21/2024 [facility] Work Phone: Comment on above: Once (Lab) for 1 Occ urrences starting 08/21/2024 until 08/21/2024 Immunizations Immunization Date Immunization Notes Care Provider Mahsa weinberg 05-04-2024 influenza virus vacc ine, unspecified formulation Lucinda Aichholz CONTINUOUS PROCESS COFFEE ROASTER Work Phone: [facility] 04-21-2023 influenza virus vacc ine, unspecified formulation Lucinda Aichholz CONTINUOUS PROCESS COFFEE ROASTER Work Phone: [facility] 10-05-2021 Pfizer Purple Cap SARS-CoV-2 Vaccination Lucinda Aichholz CONTINUOUS PROCESS COFFEE ROASTER Work Phone: [facility] 04-04-2021 Pfizer Purple Cap SARS-CoV-2 Vaccination Lucinda Aichholz CONTINUOUS PROCESS COFFEE ROASTER Work Phone: [facility] 03-14-2021 Pfizer Purple Cap SARS-CoV-2 Vaccination Lucinda Aichholz CONTINUOUS PROCESS COFFEE ROASTER Work Phone: [facility] 04-18-2020 influenza, seasonal, injectable Lucinda Aichholz CONTINUOUS PROCESS COFFEE ROASTER Work Phone: [facility] 05-02-2017 influenza, seasonal, injectable Lucinda Aichholz CONTINUOUS PROCESS COFFEE ROASTER Work Phone: [facility] 04-17-2013 influenza, seasonal, injectable Lucinda Aichholz CONTINUOUS PROCESS COFFEE ROASTER Work Phone: [facility] 07-17-2012 hepatitis B vaccine, adult dosage Lucinda Aichholz CONTINUOUS PROCESS COFFEE ROASTER Work Phone: [facility] 01-31-2012 hepatitis B vaccine, adult dosage Lucinda Florecitaholz CONTINUOUS PROCESS COFFEE ROASTER Work Phone: [facility] 12-31-2011 hepatitis B vaccine, adult dosage Lucinda Aicjazminholz CONTINUOUS PROCESS COFFEE ROASTER Work Phone: [facility] 12-31-2011 tetanus toxoid, redu lashanda diphtheria toxoid, and acellular pertussis vaccine, adsorbed Lucinda Aichholz CONTINUOUS PROCESS COFFEE ROASTER Work Phone: [facility] Payers Date Payer Category Payer Self-pay 2022 [facility] BCBS [id number] 2022 [facility] [id number] 2022 Unknown BCBS BCBS [id number] 2022-Present [phone] [id number] 2022 Unknown [id number] 2019 Unknown [id number] 2.16.840.1.637003.19 1991 Unknown [id number] 2.16.840.1.503071.3.579.2. 593 1991 Unknown [id number] 2.16.840.1.247749.3.579.2. 593 1991 Unknown [id number] 2.16.840.1.224127.3.579.2. 593 1991 Unknown [id number] 2.16.840.1.529011.3.579.2. 6 1991 Unknown [id number] 2.16.840.1.736718.3.579.2. 2 1991 Unknown [id number] 2.16.840.1.040404.3.579.2. 1242 1991 Unknown [id number] 2.16.840.1.884718.3.579.2. 1259 1991 Unknown [id number] 2.16.840.1.304547.3.579.2. 1258 1991 Unknown [id number] 2.16.840.1.547180.3.579.2. 9 1991 Unknown [id number] 2.16.840.1.532851.3.579.2. 9 1991 Unknown [id number] 2.16.840.1.396940.3.579.2. 1259 1991 Unknown [id number] 2.16.840.1.673912.3.579.2. 9 1991 Unknown [id number] 2.16.840.1.588081.3.579.2. 9 1991 Unknown [id number] 2.16.840.1.984413.3.579.2. 9 1991 Unknown [id number] 2.16.840.1.673577.3.579.2. 1259 1991 Unknown [id number] 2.16.840.1.430023.3.579.2. 1244 1991 Unknown [id number] 2.16.840.1.561980.3.579.2. 1244 1991 Unknown [id number] 2.16.840.1.088232.3.579.2. 1244 1991 Unknown [id number] 2.16.840.1.859565.3.579.2. 1244 1991 Unknown [id number] 2.16.840.1.311067.3.579.2. 1244 1991 Unknown [id number] 2.16.840.1.204001.3.579.2. 1244 1991 Unknown [id number] 2.16.840.1.959795.3.579.2. 1244 1991 Unknown [id number] 2.16.840.1.345361.3.579.2. 124 1959 Self-pay [id number] Unknown [id number] 2.16.840.1.145869.3.579.2. 593 Social History Date Type Detail Facility Unknown if ever smoked [facility] Other Start: 05-18-2024 End: 09-14-2024 Sex Assigned At [facility] Start: 11-13-2023 End: 07-07-2024 Tobacco smoking status NVIS Never smoked tobacco (finding) [facility] Start: 1990 Sex Assigned At Female F [facility] Start: 05-18-2024 End: 07-07-2024 Tobacco use and exposure Smokeless tobacco non-user [facility] Start: 05-18-2024 End: 09-14-2024 Alcoholic beverage intake Current drinker of alcohol (finding) [facility] Start: 05-11-2024 Gender identity Identifies as female gender (finding) [facility] Work Phone: Start: 05-11-2024 Sexual orientation Heterosexua l (finding) [facility] Work Phone: Start: 05-08-2024 End: 09-21-2024 Exposure to SARS-CoV-2 (event) Not sure [facility] Start: 05-18-2024 End: 09-14-2024 History of Social function [facility] Within the last year , have you been afraid of your partner or ex-partner? No [facility] How often do you attend meetings of the clubs or organizations you belong to? Patient declined [facility] Are you now , , , , never or living with a partner? Never [facility] How often to you hav e a drink containing alcohol? 2-4 times a month [facility] How many standard drinks containing alcohol do you have on a typical day? 3 or 4 [facility] How often do you hav e 6 or more drinks on 1 occasion? Never [facility] Do you feel stress - tense, restless, nervous, or anxious, or unable to sleep at night because your mind is troubled all the time - these days [OSQ] Not at all [facility] (I/We) worried wheth er (my/our) food would run out before (I/we) got money to buy more. Never true [facility] Start: 10-13-2023 Alcohol Comment occasional alc ohol use [facility] Start: 1990 Sex assigned at Not on file [facility] Start: 06-27-2024 End: 09-14-2024 Exposure to SARS-CoV-2 (event) Unable to assess [facility] How hard is it for y ou to pay for the very basics like food, housing, medical care, and heating Not very hard [facility] NEGATED: Highlighted rowStart: NINF History of tobacco use Passive smoker [facility] Work Phone: Clinical Notes 10-12-2021 to 09-21-2024 Melani Zaman MD - 09/21/2024 8:30 AM Grover Julien APRN-NICHOLAS - 09/14/2024 11:45 AM Wing Rodriguez NP - 09/10/2024 10:26 AM Wing Rodriguez, CONTINUOUS PROCESS COFFEE ROASTER - 09/10/2024 10:25 AM ESTPatient Instructions Note Date & Type Note Facility 09-21-2024 History of Present illness Narrative Virtual or Telephone Consent: An interactive audio and video telecommunication system which permits real time communications between the patient (at the originating site) and provider (at the distant site) was utilized to provide this telehealth service Post Op Visit Barb Estrada 34 yo G0 s/p second stage hysteroscopic myomectomy on 08/21/2024 with me. Patient has recovered well without any postoperative issues. She reports her bleeding is much improved even since her first stage procedure (06/26/2024). Reports she had light bleeding after this second stage procedure for about a week. She is currently on placebo pills and plans to restart Kelnor on Saturday. Vitals: LMP 08/21/2024 (Approximate) Abdomen: soft, non-tender, 4 abdominal incisions healing: no redness, swelling,or drainage- noted dried blood/glue at umbilical incision, was experiencing itching- will observe and if it increases will come in for evaluation Prior labs: CBC Date: 08/18/2024 Plt: 271 (Ref range: 150 - 450 x10*3/uL) Hct: 37.3 (Ref range: 36.0 - 46.0 %) Reviewed surgery report: Findings: Hysteroscopy: One submucosal fibroid connect with small stalk, second free floating fibroid Normal uterine cavity otherwise Reviewed pathology report: A. Uterine fibroid, myomectomy: --Secretory pattern endometrium --Fragments of smooth muscle with ischemic changes and hyalinization Assessment: 34 yo G0 s/p second stage hysteroscopic myomectomy on 08/21/2024 with me where the submucosal fibroids were completely removed and the cavity was normal in appearance at the conclusion of the case. Patient has recovered well without any postoperative issues. She reports her bleeding is much improved since surgery even her first surgery. Plan: No further indication for any repeat imaging given normal uterine cavity upon conclusion of case, and no further intervention required Counseled on continued OCP use given c/f PCOS ([facility] 12.4) Advised patient may return to office when ready to attempt to conceive if experiences oligomenorrhea when discontinuing OCPs May also call office if any recurrence of abnormal uterine bleeding or other issues Due to superficial uterine incisions from first staged procedure that included laparoscopic myomectomy, the patient will NOT require section for delivery, but does require extensive counseling Melani Zaman 09/21/2024 8:59 AM documented in this encounter [facility] Work Phone: 09-14-2024 History of Present illness Narrative Virtual or Telephone Consent: An interactive audio and video telecommunication system which permits real time communications between the patient (at the originating site) and provider (at the distant site) was utilized to provide this telehealth service MD reviewed, Authorization status not noted. Post Op Visit Seen Barb Estrada s/p Hysteroscopic myomectomy on [address] Zaman. Doing well. No issues with bowel or bladder. No nausea, vomiting, fever or chills 0/10, not taking any pain medications. No vaginal discharge or abnormal bleeding. Vitals: Ht 1.651 m (5' 5 ) Wt 107 kg (236 lb) LMP 08/21/2024 (Approximate) BMI 39.27 kg/m Abdomen: soft, non-tender per pt Prior labs: CBC Date: 08/18/2024 Plt: 271 (Ref range: 150 - 450 x10*3/uL) Hct: 37.3 (Ref range: 36.0 - 46.0 %) CMP Date: 08/18/2024 BUN: 7 (Ref range: 6 - 23 mg/dL) Cre: 0.72 (Ref range: 0.50 - 1.05 mg/dL) AST: No results found for requested labs within last 365 days. ALT: No results found for requested labs within last 365 days. Intimate Exam Performed: No, an intimate exam was not performed at this encounter. Assessment: Normal post op, uncomplicated recovery Plan: Reviewed surgery report: Findings: one pedunculated fibroid, second free floating fibroid Normal uterine cavity otherwise Reviewed pathology report: FINAL DIAGNOSIS A. Uterine fibroid, myomectomy: --Secretory pattern endometrium --Fragments of smooth muscle with ischemic changes and hyalinization This case has been reviewed at the [facility] TAPING MACHINE OPERATOR consensus conference via Zoom on 08/26/24. Schedule Follow up with DR. Zaman RTW on 08-24-2024 C/O acne after starting OCP, has taken Kelnor and Micro-gestin in past without side effect- will reach back to change OCP Darlene Julien CNP 09/14/24 6:06 PM documented in this encounter [facility] Work Phone: 09-10-2024 History of Present illness Narrative Associated Problem(s): PCOS (polycystic ovarian syndrome) Taking metformin Check insulin /A1c levels Kim prescribing Associated Problem(s): Elevated blood pressure reading Recheck: large cuff, sitting LUE: 140/100, RUE 128/96 DASH diet Exercises Recommend weight loss even 10-15 pounds would significantly impact her blood pressure Images from the original note were not included. Barb Estrada is a 34 y.o. female presents with chief complaint of No chief complaint on file. HPI: Diet: no, does not like dairy Activity: none Mental Health Concerns: none Falls in the last year: none Any hearing problems: none Any Vision problems: none Any Hospitalizations in the last year: none Specialist: TAPING MACHINE OPERATOR and Traffic Officer Concerns: none Asthma There is no cough, frequent throat clearing, shortness of breath or wheezing. This is a chronic problem. The current episode started more than 1 year ago. The problem occurs rarely. The problem has been unchanged. Pertinent negatives include no appetite change, chest pain, ear pain, fever, headaches, myalgias or sore throat. Her symptoms are aggravated by nothing. Her symptoms are alleviated by leukotriene antagonist and beta-agonist. She reports significant improvement on treatment. There are no known risk factors for lung disease. Her past medical history is significant for asthma. SUBJECTIVE: MEDICATIONS: Current Outpatient Medications Medication Instructions albuterol HFA 90 mcg/act inhaler 2 puffs, Inhalation, Every 6 hours PRN Cyanocobalamin (B-12) 1000 MCG capsule Take by mouth ferrous sulfate 325 mg, Oral, 2 times daily before meals, Take with food. metFORMIN XR (GLUCOPHAGE-XR) 500 mg, Oral, Daily with evening meal, Do not crush, chew, or split. montelukast (SINGULAIR) 10 mg, Oral, Nightly norgestimate-ethinyl estradiol (Ortho-Cyclen) 0.25-35 MG-MCG tablet 1 tablet, Daily RT ALLERGIES: Allergies Allergen Reactions Cat Dander REVIEW OF SYMPTOMS: Review of Systems Constitutional: Negative for appetite change, chills and fever. HENT: Negative for congestion, ear pain and sore throat. Eyes: Negative for pain, discharge, redness and visual disturbance. Respiratory: Negative for cough, shortness of breath and wheezing. Cardiovascular: Negative for chest pain, palpitations and leg swelling. Gastrointestinal: Negative for abdominal pain, blood in stool, constipation, diarrhea, nausea and vomiting. Genitourinary: Negative for difficulty urinating, dysuria and frequency. Musculoskeletal: Negative for arthralgias, back pain, joint swelling and myalgias. Skin: Negative for rash and wound. Neurological: Negative for dizziness, tremors, seizures, syncope and headaches. Psychiatric/Behavioral: Negative for behavioral problems, self-injury and suicidal ideas. The patient is not nervous/anxious. Hematological: Does not bruise/bleed easily. Endocrine: Negative for polydipsia, polyphagia and polyuria. Allergic/Immunologic: Negative for environmental allergies and food allergies. 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 OBJECTIVE: Visit Vitals BP (!) 128/98 (BP Location: Left arm, Patient Position: Sitting, BP Cuff Size: Adult long) Pulse 98 Temp 98.3 F (Temporal) Resp 18 Wt 242 lb 12.8 oz SpO2 98% BMI 40.40 kg/m OB Status Having periods Smoking Status Never BSA 2.25 m Physical Exam Vitals and nursing note reviewed. Constitutional: General: She is not in acute distress. Appearance: Normal appearance. She is obese. She is not ill-appearing or diaphoretic. HENT: Head: Normocephalic and atraumatic. Right Ear: Tympanic membrane, ear canal and external ear normal. Left Ear: Tympanic membrane, ear canal and external ear normal. Nose: Nose normal. No congestion or rhinorrhea. Mouth/Throat: Mouth: Mucous membranes are moist. Pharynx: No oropharyngeal exudate or posterior oropharyngeal erythema. Eyes: Extraocular Movements: Extraocular movements intact. Conjunctiva/sclera: Conjunctivae normal. Neck: Vascular: No carotid bruit. Cardiovascular: Rate and Rhythm: Normal rate and regular rhythm. Pulses: Normal pulses. Heart sounds: Normal heart sounds. Pulmonary: Effort: Pulmonary effort is normal. Breath sounds: Normal breath sounds. No wheezing or rales. Abdominal: General: Bowel sounds are normal. There is no distension. Palpations: Abdomen is soft. There is no mass. Tenderness: There is no abdominal tenderness. Musculoskeletal: General: Normal range of motion. Cervical back: Normal range of motion and neck supple. Right lower leg: No edema. Left lower leg: No edema. Lymphadenopathy: Cervical: No cervical adenopathy. Skin: General: Skin is warm and dry. Capillary Refill: Capillary refill takes 2 to 3 seconds. Findings: No rash. Neurological: General: No focal deficit present. Mental Status: She is alert and oriented to person, place, and time. Psychiatric: Mood and Affect: Mood normal. Behavior: Behavior normal. Thought Content: Thought content normal. Judgment: Judgment normal. ASSESSMENT AND PLAN: No follow-ups on file. Problem List Items Addressed This Visit Mild intermittent asthma (CMS/HCC) Medication: singulair, albuterol No weekly use, minimal in general Encounter for wellness examination in adult - Primary Reviewed Ht/Wt/BMI Recommend eye exam yearly Recommend dental exams twice a year Balance work/leisure activities Exercises is recommended most days of the week (appropriate as chronic conditions allow) Follow up yearly and prn Relevant Orders CBC and differential Comprehensive metabolic panel Lipid panel TSH Hemoglobin A1c Elevated blood pressure reading Recheck: large cuff, sitting LUE: 140/100, RUE 128/96 DASH diet Exercises Recommend weight loss even 10-15 pounds would significantly impact her blood pressure EMILY (iron deficiency anemia) Takes ferrous sulfate Check labs yearly and prn sxs changes Menses is a lot clinical practitioner now d/t removal of fibroids, will continue the ferrous sulfate and recheck labs end october and if good consider stopped ferrous sulfate Relevant Orders Iron + transferrin + TIBC Ferritin Vitamin B12 Insulin resistance Is currently taking metformin Check insulin and A1c toward 11/13 Relevant Orders Hemoglobin A1c Insulin, random Morbid (severe) obesity due to excess calories (CMS/HCC) Discussed with patient their BMI (actual, verses recommended). We have also discussed lifestyle modifications: attempts to perform physical activity as chronic conditions allow, also to monitor dietary intake: increasing protein/fruits/veggies and lowering carb intake (unless contraindicated). Limit sodas, juices, and sugary drinks. Body mass index (BMI) 39.0-39.9, adult PCOS (polycystic ovarian syndrome) Taking metformin Check insulin /A1c levels Kim prescribing Relevant Orders Hemoglobin A1c Insulin, random Associated Problem(s): Encounter for wellness examination in adult Reviewed Ht/Wt/BMI Recommend eye exam yearly Recommend dental exams twice a year Balance work/leisure activities Exercises is recommended most days of the week (appropriate as chronic conditions allow) Follow up yearly and prn Associated Problem(s): EMILY (iron deficiency anemia) Takes ferrous sulfate Check labs yearly and prn sxs changes Menses is a lot clinical practitioner now d/t removal of fibroids, will continue the ferrous sulfate and recheck labs end october and if good consider stopped ferrous sulfate Associated Problem(s): Insulin resistance Is currently taking metformin Check insulin and A1c toward 11/13 Associated Problem(s): Morbid (severe) obesity due to excess calories (CMS/HCC) Discussed with patient their BMI (actual, verses recommended). We have also discussed lifestyle modifications: attempts to perform physical activity as chronic conditions allow, also to monitor dietary intake: increasing protein/fruits/veggies and lowering carb intake (unless contraindicated). Limit sodas, juices, and sugary drinks. Associated Problem(s): Mild intermittent asthma (CMS/HCC) Medication: singulair, albuterol No weekly use, minimal in general documented in this encounter [facility] 09-10-2024 Instructions Lucinda Rodriguez NP - 09/10/2024 9:40 AM EST Recommend exercise 2-3 times weekly DASH diet Get labs completed toward end October 2024 documented in this encounter [facility] 08-26-2024 Note [facility] SURG1 This case has b een reviewed at the [facility] TAPING MACHINE OPERATOR consensus conference via Zoom on 08/26/24. 08-21-2024 Note Formatting of this n ote might be different from the original. 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 who presents with two intrauterine fibroids documented on SIS. The proposed procedure, risks, benefits, and alternatives were discussed with the patient in detail including bleeding, infection, and damage to surrounding structures. All the patient's questions were answered, and the patient voiced understanding. The patient desires to proceed with surgery. The consents were signed. OPERATIVE PROCEDURE: Patient was taken to the OR, placed on the operative table in dorsolithotomy position with Olegario stirrups. Patient was prepped and draped in the usual fashion. A sterile speculum was placed into the patient's vagina and cervix was grasped anteriorly with a single-toothed tenaculum. The Aveta hysteroscope was introduced through the cervix and into the uterus. The uterus was distended with normal saline fluid. At this point, there was noted to be two uterine fibroids (one pedunculated and another free floating from previous aborted hysteroscopic myomectomy). The fibroids were adequately resected using the Aveta resector. Images were taken and placed in the medical record. Inspection, at this point, of endometrial cavity revealed that it was clear. Tubal ostium were identified bilaterally. There was no evidence at this point of uterine perforation. Resectoscope was removed and patient then received a curettage of the endometrial cavity in the usual fashion. There was minimal bleeding noted after a Ray-Julissa was used to clean the vaginal vault and good hemostasis was noted. All equipment was removed from the vaginal vault. Patient tolerated the procedure well and was taken to the PACU in stable condition. Counts: Sponge, Lap, and Needle counts correct x 2 at the conclusion of the case. Dr. Zaman was present and scrubbed for the entire procedure. Vaginal sweep was performed and was negative Signature: Deborah Price MD Date: August 21, 2024 Time: 2:18 PM Cosigned by Melani Zaman MD at 08/21/2024 2:21 PM EST Associated attestation - Melani Zaman MD - 08/21/2024 2:21 PM EST I was present for the entirety of the procedure(s). Melani Zaman 08/21/24 2:21 PM documented in this encounter [facility] Work Phone: 08-21-2024 Note Formatting of this n ote might be different from the original. OPERATIVE REPORT Patient Name: Barb Estrada Log ID: [id number] Surgery Date: 08/21/2024 * Melani Zaman - Primary Deborah Price - Fellow Pre-op Diagnosis: Intrauterine fibroid Post-op Diagnosis: same Procedure(s): Hysteroscopic myomectomy Anesthesia: General LMA Findings: one pedunculated fibroid, second free floating fibroid Normal uterine cavity otherwise Estimated Blood Loss: 5cc IVF: 500cc UOP: NR Specimens: uterine fibroid Deficit Complications: None Indications: This is a 34 y.o. who presents with two intrauterine fibroids documented on SIS. The proposed procedure, risks, benefits, and alternatives were discussed with the patient in detail including bleeding, infection, and damage to surrounding structures. All the patient's questions were answered, and the patient voiced understanding. The patient desires to proceed with surgery. The consents were signed. OPERATIVE PROCEDURE: Patient was taken to the OR, placed on the operative table in dorsolithotomy position with Olegario stirrups. Patient was prepped and draped in the usual fashion. A sterile speculum was placed into the patient's vagina and cervix was grasped anteriorly with a single-toothed tenaculum. The Aveta hysteroscope was introduced through the cervix and into the uterus. The uterus was distended with normal saline fluid. At this point, there was noted to be two uterine fibroids (one pedunculated and another free floating from previous aborted hysteroscopic myomectomy). The fibroids were adequately resected using the Aveta resector. Images were taken and placed in the medical record. Inspection, at this point, of endometrial cavity revealed that it was clear. Tubal ostium were identified bilaterally. There was no evidence at this point of uterine perforation. Resectoscope was removed and patient then received a curettage of the endometrial cavity in the usual fashion. There was minimal bleeding noted after a Ray-Julissa was used to clean the vaginal vault and good hemostasis was noted. All equipment was removed from the vaginal vault. Patient tolerated the procedure well and was taken to the PACU in stable condition. Counts: Sponge, Lap, and Needle counts correct x 2 at the conclusion of the case. Dr. Zaman was present and scrubbed for the entire procedure. Vaginal sweep was performed and was negative Signature: Deborah Price MD Date: August 21, 2024 Time: 2:18 PM Cosigned by Melani Zaman MD at 08/21/2024 2:21 PM EST Associated attestation - Melani Zaman MD - 08/21/2024 2:21 PM EST I was present for the entirety of the procedure(s). Melani Zamna 08/21/24 2:21 PM [facility] Work Phone: 08-21-2024 Attending History and physical note H&P below written by me and up to date. Deborah price MD PGY 5 Reproductive Endocrinology and Infertility Fellow 08/21/24 12:29 PM Cosigned by Melani Zaman MD at 08/21/2024 12:44 PM EST Associated attestation - Melani Zaman MD - 08/21/2024 12:44 PM EST Attestation: I reviewed the valdovinos and critical portions of the history and physical exam and/or was physically present for valdovinos and critical portions performed by the resident/fellow. I reviewed the resident/fellow's documentation and discussed the patient with the resident/fellow. I agree with the resident/fellow's medical decision making as documented in the resident/fellow's note. Melani Zaman 08/21/24 12:44 PM Source Note - Melani Zaman MD - 08/10/2024 12:00 PM EST Virtual or Telephone Consent: An interactive audio and video telecommunication system which permits real time communications between the patient (at the originating site) and provider (at the distant site) was utilized to provide this telehealth service Post Op Visit Barb Estrada 34 yo G0 s/p Hysteroscopic myomectomy, Laparoscopic myomectomy, Chromopertubation on 06-26-2024 with me. Patient has recovered well without any postoperative issues. She reports her bleeding is much improved since surgery. Patient underwent SIS 07/24/2024 to assess remaining submucosal fibroid, which demonstrated two residual fibroids (one with small stalk remaining, and the other free floating). Patient is scheduled 08/21/2024 for second stage hysteroscopic myomectomy. Vitals: There were no vitals taken for this visit. Abdomen: soft, non-tender, 4 abdominal incisions healing: no redness, swelling,or drainage- noted dried blood/glue at umbilical incision, was experiencing itching- will observe and if it increases will come in for evaluation Prior labs: CBC Date: 06/25/2024 Plt: 319 (Ref range: 150 - 450 x10*3/uL) Hct: 37.9 (Ref range: 36.0 - 46.0 %) Reviewed surgery report: Findings: Hysteroscopy: Uterine cavity: large (3 cm) intracavitary fibroid Bilateral ostia: unable to be visualized given size of myoma Laparoscopy: The uterus: multifibroid uterus (large pedunculated from right anterior fundus, large subserosal on left cornua, two small at right anterior cornua The fallopian tubes: normal appearing right tube with patency confirmed on chromopertubation; grossly normal appearing left tube with paratubal cyst (removed); left tube without flow on chromopertubation (neither before nor after myomectomy) The ovaries: normal Liver: normal Other: small necrotic epiploic appendage Reviewed pathology report: A. Fibroid myomectomy: - Leiomyoma. - Extensively fragmented proliferative pattern endometrium. See comment. B. Left fallopian tube cyst, excision: - Fragment of fallopian tube with paratubal cysts. Assessment: 34 yo G0 s/p Hysteroscopic myomectomy, Laparoscopic myomectomy, Chromopertubation on 06-26-2024 with me. Patient has recovered well without any postoperative issues. She reports her bleeding is much improved since surgery. Patient underwent SIS 07/24/2024 to assess remaining submucosal fibroid, which demonstrated two residual fibroids (one with small stalk remaining, and the other free floating). Patient is scheduled 08/21/2024 for second stage hysteroscopic myomectomy. Plan: Due to superficial uterine incisions, the patient will NOT require section for delivery, but does require extensive counseling. s/p SIS on 07-24-2024 Scheduled for 2nd stage hysteroscopic myomectomy on 08/21/2024 with me Counseled on continued OCP use after surgery given c/f PCOS ([facility] 12.4) Melani Zaman 08/10/2024 8:[address] [facility] Work Phone: 08-21-2024 History and physical note H&P below written by me and up to date. Deborah price MD PGY 5 Reproductive Endocrinology and Infertility Fellow 08/21/24 12:29 PM Cosigned by Melani Zaman MD at 08/21/2024 12:44 PM EST Associated attestation - Melani Zaman MD - 08/21/2024 12:44 PM EST Attestation: I reviewed the valdovinos and critical portions of the history and physical exam and/or was physically present for valdovinos and critical portions performed by the resident/fellow. I reviewed the resident/fellow's documentation and discussed the patient with the resident/fellow. I agree with the resident/fellow's medical decision making as documented in the resident/fellow's note. Melani Zaman 08/21/24 12:44 PM Source Note - Melani Zaman MD - 08/10/2024 12:00 PM EST Virtual or Telephone Consent: An interactive audio and video telecommunication system which permits real time communications between the patient (at the originating site) and provider (at the distant site) was utilized to provide this telehealth service Post Op Visit Barb Estrada 34 yo G0 s/p Hysteroscopic myomectomy, Laparoscopic myomectomy, Chromopertubation on 06-26-2024 with me. Patient has recovered well without any postoperative issues. She reports her bleeding is much improved since surgery. Patient underwent SIS 07/24/2024 to assess remaining submucosal fibroid, which demonstrated two residual fibroids (one with small stalk remaining, and the other free floating). Patient is scheduled 08/21/2024 for second stage hysteroscopic myomectomy. Vitals: There were no vitals taken for this visit. Abdomen: soft, non-tender, 4 abdominal incisions healing: no redness, swelling,or drainage- noted dried blood/glue at umbilical incision, was experiencing itching- will observe and if it increases will come in for evaluation Prior labs: CBC Date: 06/25/2024 Plt: 319 (Ref range: 150 - 450 x10*3/uL) Hct: 37.9 (Ref range: 36.0 - 46.0 %) Reviewed surgery report: Findings: Hysteroscopy: Uterine cavity: large (3 cm) intracavitary fibroid Bilateral ostia: unable to be visualized given size of myoma Laparoscopy: The uterus: multifibroid uterus (large pedunculated from right anterior fundus, large subserosal on left cornua, two small at right anterior cornua The fallopian tubes: normal appearing right tube with patency confirmed on chromopertubation; grossly normal appearing left tube with paratubal cyst (removed); left tube without flow on chromopertubation (neither before nor after myomectomy) The ovaries: normal Liver: normal Other: small necrotic epiploic appendage Reviewed pathology report: A. Fibroid myomectomy: - Leiomyoma. - Extensively fragmented proliferative pattern endometrium. See comment. B. Left fallopian tube cyst, excision: - Fragment of fallopian tube with paratubal cysts. Assessment: 34 yo G0 s/p Hysteroscopic myomectomy, Laparoscopic myomectomy, Chromopertubation on 06-26-2024 with me. Patient has recovered well without any postoperative issues. She reports her bleeding is much improved since surgery. Patient underwent SIS 07/24/2024 to assess remaining submucosal fibroid, which demonstrated two residual fibroids (one with small stalk remaining, and the other free floating). Patient is scheduled 08/21/2024 for second stage hysteroscopic myomectomy. Plan: Due to superficial uterine incisions, the patient will NOT require section for delivery, but does require extensive counseling. s/p SIS on 07-24-2024 Scheduled for 2nd stage hysteroscopic myomectomy on 08/21/2024 with me Counseled on continued OCP use after surgery given c/f PCOS ([facility] 12.4) Melani Zaman 08/10/2024 8:59 AM Reviewed my prior note and patient's history is up to date. Proceed with plan for second stage hysteroscopic procedure for removal of submucosal fibroid remnants as described above. Melani Zaman 08/21/24 12:26 PM Source Note - Melani Zaman MD - 08/10/2024 12:00 PM EST Virtual or Telephone Consent: An interactive audio and video telecommunication system which permits real time communications between the patient (at the originating site) and provider (at the distant site) was utilized to provide this telehealth service Post Op Visit Barb Estrada 34 yo G0 s/p Hysteroscopic myomectomy, Laparoscopic myomectomy, Chromopertubation on 06-26-2024 with me. Patient has recovered well without any postoperative issues. She reports her bleeding is much improved since surgery. Patient underwent SIS 07/24/2024 to assess remaining submucosal fibroid, which demonstrated two residual fibroids (one with small stalk remaining, and the other free floating). Patient is scheduled 08/21/2024 for second stage hysteroscopic myomectomy. Vitals: There were no vitals taken for this visit. Abdomen: soft, non-tender, 4 abdominal incisions healing: no redness, swelling,or drainage- noted dried blood/glue at umbilical incision, was experiencing itching- will observe and if it increases will come in for evaluation Prior labs: CBC Date: 06/25/2024 Plt: 319 (Ref range: 150 - 450 x10*3/uL) Hct: 37.9 (Ref range: 36.0 - 46.0 %) Reviewed surgery report: Findings: Hysteroscopy: Uterine cavity: large (3 cm) intracavitary fibroid Bilateral ostia: unable to be visualized given size of myoma Laparoscopy: The uterus: multifibroid uterus (large pedunculated from right anterior fundus, large subserosal on left cornua, two small at right anterior cornua The fallopian tubes: normal appearing right tube with patency confirmed on chromopertubation; grossly normal appearing left tube with paratubal cyst (removed); left tube without flow on chromopertubation (neither before nor after myomectomy) The ovaries: normal Liver: normal Other: small necrotic epiploic appendage Reviewed pathology report: A. Fibroid myomectomy: - Leiomyoma. - Extensively fragmented proliferative pattern endometrium. See comment. B. Left fallopian tube cyst, excision: - Fragment of fallopian tube with paratubal cysts. Assessment: 34 yo G0 s/p Hysteroscopic myomectomy, Laparoscopic myomectomy, Chromopertubation on 06-26-2024 with me. Patient has recovered well without any postoperative issues. She reports her bleeding is much improved since surgery. Patient underwent SIS 07/24/2024 to assess remaining submucosal fibroid, which demonstrated two residual fibroids (one with small stalk remaining, and the other free floating). Patient is scheduled 08/21/2024 for second stage hysteroscopic myomectomy. Plan: Due to superficial uterine incisions, the patient will NOT require section for delivery, but does require extensive counseling. s/p SIS on 07-24-2024 Scheduled for 2nd stage hysteroscopic myomectomy on 08/21/2024 with me Counseled on continued OCP use after surgery given c/f PCOS ([facility] 12.4) Melani Zaman 08/10/2024 8:59 AM documented in this encounter [facility] Work Phone: 08-21-2024 Attending History and physical note Reviewed my prior note and patient's history is up to date. Proceed with plan for second stage hysteroscopic procedure for removal of submucosal fibroid remnants as described above. Melani Zaman 08/21/24 12:26 PM Source Note - Melani Zaman MD - 08/10/2024 12:00 PM EST Virtual or Telephone Consent: An interactive audio and video telecommunication system which permits real time communications between the patient (at the originating site) and provider (at the distant site) was utilized to provide this telehealth service Post Op Visit Barb Estrada 34 yo G0 s/p Hysteroscopic myomectomy, Laparoscopic myomectomy, Chromopertubation on 06-26-2024 with me. Patient has recovered well without any postoperative issues. She reports her bleeding is much improved since surgery. Patient underwent SIS 07/24/2024 to assess remaining submucosal fibroid, which demonstrated two residual fibroids (one with small stalk remaining, and the other free floating). Patient is scheduled 08/21/2024 for second stage hysteroscopic myomectomy. Vitals: There were no vitals taken for this visit. Abdomen: soft, non-tender, 4 abdominal incisions healing: no redness, swelling,or drainage- noted dried blood/glue at umbilical incision, was experiencing itching- will observe and if it increases will come in for evaluation Prior labs: CBC Date: 06/25/2024 Plt: 319 (Ref range: 150 - 450 x10*3/uL) Hct: 37.9 (Ref range: 36.0 - 46.0 %) Reviewed surgery report: Findings: Hysteroscopy: Uterine cavity: large (3 cm) intracavitary fibroid Bilateral ostia: unable to be visualized given size of myoma Laparoscopy: The uterus: multifibroid uterus (large pedunculated from right anterior fundus, large subserosal on left cornua, two small at right anterior cornua The fallopian tubes: normal appearing right tube with patency confirmed on chromopertubation; grossly normal appearing left tube with paratubal cyst (removed); left tube without flow on chromopertubation (neither before nor after myomectomy) The ovaries: normal Liver: normal Other: small necrotic epiploic appendage Reviewed pathology report: A. Fibroid myomectomy: - Leiomyoma. - Extensively fragmented proliferative pattern endometrium. See comment. B. Left fallopian tube cyst, excision: - Fragment of fallopian tube with paratubal cysts. Assessment: 34 yo G0 s/p Hysteroscopic myomectomy, Laparoscopic myomectomy, Chromopertubation on 06-26-2024 with me. Patient has recovered well without any postoperative issues. She reports her bleeding is much improved since surgery. Patient underwent SIS 07/24/2024 to assess remaining submucosal fibroid, which demonstrated two residual fibroids (one with small stalk remaining, and the other free floating). Patient is scheduled 08/21/2024 for second stage hysteroscopic myomectomy. Plan: Due to superficial uterine incisions, the patient will NOT require section for delivery, but does require extensive counseling. s/p SIS on 07-24-2024 Scheduled for 2nd stage hysteroscopic myomectomy on 08/21/2024 with me Counseled on continued OCP use after surgery given c/f PCOS ([facility] 12.4) Melani Zaman 08/10/2024 8:59 AM [facility] Work Phone: 07-24-2024 History of Present illness Narrative Associated Order(s): Sonohysterogram Patient ID: Barb Estrada is a 34 y.o. female. Sonohysterogram Date/Time: 07/24/2024 1:20 PM Performed by: RETA Stratton Authorized by: RETA Stratton Consent: Consent obtained: Verbal and written Consent given by: Patient Patient questions answered: yes Patient agrees, verbalizes understanding, and wants to proceed: yes Instructions and paperwork completed: yes Pre-procedure: Pre-procedure timeout performed: yes Prepped with: Betadine Procedure: Cervix cleaned and prepped: yes Catheter inserted: yes Uterine cavity distended with saline: yes Post-procedure: No complications: no Estimated blood loss (mL): minimal. Post procedure instructions given to patient: yes Patient tolerated procedure well with no complications: yes Comments: Prior to the procedure, the patient was counseled regarding risks, benefits, and alternatives. Saline Ultrasound Findings: Uterus Visualized. Size 75.5 mm x 55.4 mm x 41.6 mm Position: anteverted Myometrium: normal Endometrium: trilaminar. Endometrial thickness, total 6.6 mm Cervix details: normal Fibroid(s) 1. Size 17 mm x 14 mm x 14 mm. Mean 15.0 mm. Vol 1.745 cm . Submucosal 2. Size 27 mm x 19 mm x 23 mm. Mean 23.0 mm. Vol 6.178 cm . Submucosal Right Ovary Visualized. Morphology: normal. Size 40.1 mm x 25.0 mm x 24.6 mm. Vol 12.9 cm Follicle(s) Antral Follicles 10+<10mm Left Ovary Visualized. Morphology: normal. Size 29.7 mm x 29.8 mm x 23.1 mm. Vol 10.7 cm Follicle(s) Antral Follicles 10+<10mm Uterus: normal contour with 2 filling defects/fibroids noted: 1 attached to submucosal fibroids noted: 1 left lateral uterine wall with positive color doppler and 1 not attached mid cavity Bubble Test performed: No Additional Findings: Follow up: Follow up required, chart forwarded to primary MD. Dr. Zaman reviewed the images. Patient is s/p Hysteroscopic myomectomy, Laparoscopic myomectomy, Chromopertubation on 06-26-[address] Zaman- not able to remove all of the fibroids- will need a 2nd staging surgery- patient prefers to have done with Dr. Zaman. Dr. Zaman does not need to see for another pre-op visit. Dr. Zaman will place orders for surgery and food service helper will reach back with date and details. Darlene Julien CNP 07/24/24 5:13 PM documented in this encounter [facility] Work Phone: 07-07-2024 History of Present illness Narrative Virtual or Telephone Consent: An interactive audio and video telecommunication system which permits real time communications between the patient (at the originating site) and provider (at the distant site) was utilized to provide this telehealth service Post Op Visit Seen Barb Estrada s/p Hysteroscopic myomectomy, Laparoscopic myomectomy, Chromopertubation on 06-26-[address] Zaman. Doing well. 4 abdominal Incisions are healing well: 1 @ umbilicus, 1 LLQ, 1 Left Lateral, & 1 RLQ: denies any redness, swelling, or drainage- was experiencing itching from umbilical incision- notes there is some dried blood/glue at umbilical incision- encouraged to not pick and let water work it off. Some glue at other incisions as well No issues with bowel or bladder. No nausea, vomiting, fever or chills 0/10 pain, not taking any medications. No vaginal discharge or abnormal bleeding. Initially bleeding and stopped, no menses yet Vitals: There were no vitals taken for this visit. Abdomen: soft, non-tender, 4 abdominal incisions healing: no redness, swelling,or drainage- noted dried blood/glue at umbilical incision, was experiencing itching- will observe and if it increases will come in for evaluation Prior labs: CBC Date: 06/25/2024 Plt: 319 (Ref range: 150 - 450 x10*3/uL) Hct: 37.9 (Ref range: 36.0 - 46.0 %) CMP Date: No results found for requested labs within last 365 days. BUN: No results found for requested labs within last 365 days. Cre: No results found for requested labs within last 365 days. AST: No results found for requested labs within last 365 days. ALT: No results found for requested labs within last 365 days. Assessment: Normal post op, uncomplicated recovery Plan: Reviewed surgery report: Findings: Hysteroscopy: Uterine cavity: large (3 cm) intracavitary fibroid Bilateral ostia: unable to be visualized given size of myoma Laparoscopy: The uterus: multifibroid uterus (large pedunculated from right anterior fundus, large subserosal on left cornua, two small at right anterior cornua The fallopian tubes: normal appearing right tube with patency confirmed on chromopertubation; grossly normal appearing left tube with paratubal cyst (removed); left tube without flow on chromopertubation (neither before nor after myomectomy) The ovaries: normal Liver: normal Other: small necrotic epiploic appendage Reviewed pathology report: still in process Per DR. Zaman opinion, due to superficial incisions, the patient will NOT require section for delivery, but does require extensive counseling. SIS with me on 07-24-2024 Follow up 08-10-[address] Zaman RTW after 08-10-2024 Darlene Julien CNP 07/07/24 12:08 PM documented in this encounter [facility] Work Phone: 06-26-2024 Miscellaneous Notes Operative Report Indications: Barb Estrada is a 34 y.o. female with multifibroid uterus. Pre-operative Diagnosis: multi fibroid uterus Post-operative Diagnosis: same Procedures: Hysteroscopic myomectomy Laparoscopic myomectomy Chromopertubation Surgeon: Attending: Melani Zaman MD Fellow: Deborah Price MD Residents: Kell Villa MD and Tita Tao MD Anesthesia: General ASA Class: II Findings: Hysteroscopy: Uterine cavity: large (3 cm) intracavitary fibroid Bilateral ostia: unable to be visualized given size of myoma Laparoscopy: The uterus: multifibroid uterus (large pedunculated from right anterior fundus, large subserosal on left cornua, two small at right anterior cornua The fallopian tubes: normal appearing right tube with patency confirmed on chromopertubation; grossly normal appearing left tube with paratubal cyst (removed); left tube without flow on chromopertubation (neither before nor after myomectomy) The ovaries: normal Liver: normal Other: small necrotic epiploic appendage Estimated Blood Loss: 20cc Total IV Fluids: 700mL Specimens: uterine fibroids Complications: None; patient tolerated the procedure well. Disposition: PACU - hemodynamically stable. Condition: stable Procedure Details The patient was seen in the Holding Room. The risks, benefits, complications, treatment options, and expected outcomes were discussed with the patient. The possibilities of reaction to medication, pulmonary aspiration, perforation of viscus, bleeding, recurrent infection, the need for additional procedures, failure to diagnose a condition, and creating a complication requiring transfusion or operation were discussed with the patient. The patient concurred with the proposed plan, giving informed consent. The patient was taken to the Operating Room, identified as Barb Estrada. A Time Out was held and the above information confirmed. After induction of general anesthesia, the patient was placed in modified dorsal lithotomy position where she was prepped, draped, and catheterized in the normal, sterile fashion. A guevara was placed in the bladder and a speculum was placed in the vagina. The cervix was visualized and grasped with a tenaculum. The Aveta hysteroscope was advanced into the uterus. The above findings were noted; we began hysteroscopic resection and were able to detach the fibroid from uterine wall. However, given fluid shortage in the hospital we were not able to complete the hysteroscopic resection, and remants of the released intracavitary fibroid remained within the uterine cavity. The hysteroscope was removed. A nando manipulator was then inserted into the uterus. The tenaculum and speculum were removed from the vagina. Attention was turned to the abdomen. The umbilicus was injected with 0.25% marcaine. A small intraumbilical skin incision then was made with the scalpel and the 5 mm trocar was used to enter the abdomen with optical guidance. Following intra-abdominal confirmation, the abdomen was insufflated with CO2 gas. Three 5 mm trocars were placed in the right and left lower quadrant and one 5 mm trocar was placed on the left lateral to the umbilicus. All of these ports were placed under direct visualization with no complications. The findings noted above were observed. Bilateral chromopertubation was then performed with flow through right tube but no flow noted on left. Dilute (20 units in 100 ml saline) vasopressin was injected into the pedunculated myoma bed. After blanching was achieved, the L-hook Bovie was used to create an incision over the myoma. The 5mm laparoscopic tenaculum was used to grasp the fibroid, and the LigaSure was then used to transect the myoma completely off of the uterus. We were able to grasp another fibroid through the same incision with the laparoscopic tenaculum and using gentle traction, the fibers surrounding the fibroid were released and the fibroid was removed from its stalk with the LigaSure device. We then transected that fibroid with the LigaSure in order to remove it from the laparoscopic port under direct visualization in pieces. Another small fibroid was identified and carefully enucleated and removed from a lateral port in a similar fashion. We then moved to the large left subserosal fibroid and injected Vasopressin as described above. We made an incision using the L hook Bovie and this was carried down into the capsule, and when the myoma was identified, a 5 mm tenaculum was placed through the lateral port for traction. Using the monopolar hook and the graspers, the fibroid was enucleated with the assistance of the 5 mm tenaculum. We were very careful to not place excessive traction on the myoma and instead pushed the myometrial fibers down and away. We then extended our umbilical incision to allow for placement of the GelPoint retractor. We then closed the largest myoma bed using 0 Stratafix suture in multiple layers. The two smaller incisions were closed with 2-0 Stratafix with excellent hemostasis. A 10mm EndoCatch bag was then placed into the abdominal cavity and the two large fibroids were placed inside. The bag was brought to the anterior abdominal wall and the fibroids were morcellated leaving the bag intact. The umbilical incision was closed with 0-Vicryl in a running fashion and after this, all of the skin incisions were closed using 4-0 Vicryl in a subcuticular fashion. In my opinion, due to superficial incisions, the patient will NOT require section for delivery, but does require extensive counseling. The intrauterine manipulator and guevara catheter were then removed. Instrument, sponge, and needle counts were correct prior to abdominal closure and at the conclusion of the case. Deborah Price MD Reproductive Endocrinology & Infertility Fellow Cosigned by Melani Zaman MD at 06/26/2024 1:01 PM EST Associated attestation - Melani Zaman MD - 06/26/2024 1:01 PM EST I was present for the entirety of the procedure(s). Melani Zaman 06/26/24 1:01 PM documented in this encounter [facility] Work Phone: 06-26-2024 Note Formatting of this n ote might be different from the original. Operative Report Indications: Barb Estrada is a 34 y.o. female with multifibroid uterus. Pre-operative Diagnosis: multi fibroid uterus Post-operative Diagnosis: same Procedures: Hysteroscopic myomectomy Laparoscopic myomectomy Chromopertubation Surgeon: Attending: Melani Zaman MD Fellow: Deborah Price MD Residents: Kell Villa MD and Tita Tao MD Anesthesia: General ASA Class: II Findings: Hysteroscopy: Uterine cavity: large (3 cm) intracavitary fibroid Bilateral ostia: unable to be visualized given size of myoma Laparoscopy: The uterus: multifibroid uterus (large pedunculated from right anterior fundus, large subserosal on left cornua, two small at right anterior cornua The fallopian tubes: normal appearing right tube with patency confirmed on chromopertubation; grossly normal appearing left tube with paratubal cyst (removed); left tube without flow on chromopertubation (neither before nor after myomectomy) The ovaries: normal Liver: normal Other: small necrotic epiploic appendage Estimated Blood Loss: 20cc Total IV Fluids: 700mL Specimens: uterine fibroids Complications: None; patient tolerated the procedure well. Disposition: PACU - hemodynamically stable. Condition: stable Procedure Details The patient was seen in the Holding Room. The risks, benefits, complications, treatment options, and expected outcomes were discussed with the patient. The possibilities of reaction to medication, pulmonary aspiration, perforation of viscus, bleeding, recurrent infection, the need for additional procedures, failure to diagnose a condition, and creating a complication requiring transfusion or operation were discussed with the patient. The patient concurred with the proposed plan, giving informed consent. The patient was taken to the Operating Room, identified as Barb Estrada. A Time Out was held and the above information confirmed. After induction of general anesthesia, the patient was placed in modified dorsal lithotomy position where she was prepped, draped, and catheterized in the normal, sterile fashion. A guevara was placed in the bladder and a speculum was placed in the vagina. The cervix was visualized and grasped with a tenaculum. The Aveta hysteroscope was advanced into the uterus. The above findings were noted; we began hysteroscopic resection and were able to detach the fibroid from uterine wall. However, given fluid shortage in the hospital we were not able to complete the hysteroscopic resection, and remants of the released intracavitary fibroid remained within the uterine cavity. The hysteroscope was removed. A nando manipulator was then inserted into the uterus. The tenaculum and speculum were removed from the vagina. Attention was turned to the abdomen. The umbilicus was injected with 0.25% marcaine. A small intraumbilical skin incision then was made with the scalpel and the 5 mm trocar was used to enter the abdomen with optical guidance. Following intra-abdominal confirmation, the abdomen was insufflated with CO2 gas. Three 5 mm trocars were placed in the right and left lower quadrant and one 5 mm trocar was placed on the left lateral to the umbilicus. All of these ports were placed under direct visualization with no complications. The findings noted above were observed. Bilateral chromopertubation was then performed with flow through right tube but no flow noted on left. Dilute (20 units in 100 ml saline) vasopressin was injected into the pedunculated myoma bed. After blanching was achieved, the L-hook Bovie was used to create an incision over the myoma. The 5mm laparoscopic tenaculum was used to grasp the fibroid, and the LigaSure was then used to transect the myoma completely off of the uterus. We were able to grasp another fibroid through the same incision with the laparoscopic tenaculum and using gentle traction, the fibers surrounding the fibroid were released and the fibroid was removed from its stalk with the LigaSure device. We then transected that fibroid with the LigaSure in order to remove it from the laparoscopic port under direct visualization in pieces. Another small fibroid was identified and carefully enucleated and removed from a lateral port in a similar fashion. We then moved to the large left subserosal fibroid and injected Vasopressin as described above. We made an incision using the L hook Bovie and this was carried down into the capsule, and when the myoma was identified, a 5 mm tenaculum was placed through the lateral port for traction. Using the monopolar hook and the graspers, the fibroid was enucleated with the assistance of the 5 mm tenaculum. We were very careful to not place excessive traction on the myoma and instead pushed the myometrial fibers down and away. We then extended our umbilical incision to allow for placement of the GelPoint retractor. We then closed the largest myoma bed using 0 Stratafix suture in multiple layers. The two smaller incisions were closed with 2-0 Stratafix with excellent hemostasis. A 10mm EndoCatch bag was then placed into the abdominal cavity and the two large fibroids were placed inside. The bag was brought to the anterior abdominal wall and the fibroids were morcellated leaving the bag intact. The umbilical incision was closed with 0-Vicryl in a running fashion and after this, all of the skin incisions were closed using 4-0 Vicryl in a subcuticular fashion. In my opinion, due to superficial incisions, the patient will NOT require section for delivery, but does require extensive counseling. The intrauterine manipulator and guevara catheter were then removed. Instrument, sponge, and needle counts were correct prior to abdominal closure and at the conclusion of the case. Deborah Price MD Reproductive Endocrinology & Infertility Fellow Cosigned by Melani Zaamn MD at 06/26/2024 1:01 PM EST Associated attestation - Austyn, Melani Cantor MD - 06/26/2024 1:01 PM EST I was present for the entirety of the procedure(s). Melani Zaman 06/26/24 1:01 PM [facility] Work Phone: 06-26-2024 History and physical note PreOp H+P History Of Present Illness Barb Estrada is a 34 y.o. female presenting for scheduled surgery: hysteroscopy, bilateral chromopertubation, laparoscopic myomectomy. Past Medical History She has a past medical history of Anemia, Asthma, Fibroids, Heavy menstrual period, and Insulin resistance. Surgical History She has a past surgical history that includes Dilation and curettage of uterus (01/24/2024) and Cyst Removal. OB History OB History Para Term AB Living 0 0 0 0 0 0 SAB IAB Ectopic Multiple Live Births 0 0 0 0 0 Review of Systems Constitutional: Negative for chills and fever. Respiratory: Negative for cough and chest tightness. Cardiovascular: Negative for chest pain. Gastrointestinal: Negative for abdominal pain. Neurological: Negative for syncope and weakness. Psychiatric/Behavioral: Negative for decreased concentration. Physical Exam Vitals reviewed. Constitutional: Appearance: Normal appearance. HENT: Head: Normocephalic and atraumatic. Eyes: Pupils: Pupils are equal, round, and reactive to light. Cardiovascular: Rate and Rhythm: Regular rhythm. Pulmonary: Effort: Pulmonary effort is normal. Abdominal: Palpations: Abdomen is soft. Skin: General: Skin is warm. Neurological: General: No focal deficit present. Mental Status: She is alert and oriented to person, place, and time. Psychiatric: Mood and Affect: Mood normal. Behavior: Behavior normal. Last Recorded Vitals: to be done on admission Relevant Results Medications No current facility-administered medications for this encounter. Labs CBC WBC Date Value Ref Range Status 06/25/2024 7.1 4.4 - 11.3 x10*3/uL Final nRBC Date Value Ref Range Status 06/25/2024 0.0 0.0 - 0.0 /100 WBCs Final RBC Date Value Ref Range Status 06/25/2024 4.23 4.00 - 5.20 x10*6/uL Final Hemoglobin Date Value Ref Range Status 06/25/2024 12.2 12.0 - 16.0 g/dL Final Hematocrit Date Value Ref Range Status 06/25/2024 37.9 36.0 - 46.0 % Final MCV Date Value Ref Range Status 06/25/2024 90 80 - 100 fL Final MCH Date Value Ref Range Status 06/25/2024 28.8 26.0 - 34.0 pg Final MCHC Date Value Ref Range Status 06/25/2024 32.2 32.0 - 36.0 g/dL Final RDW Date Value Ref Range Status 06/25/2024 12.9 11.5 - 14.5 % Final Platelets Date Value Ref Range Status 06/25/2024 319 150 - 450 x10*3/uL Final CMP No results found for: GLUCOSE , NA , K , CL , CO2 , ANIONGAP , BUN , CREATININE , EGFR , CALCIUM , ALBUMIN , ALKPHOS , PROT , AST , BILITOT , ALT Coagulation No results found for: PROTIME , INR , APTT , FIBRINOGEN Tests No results found for: HCGQUANT , HCGURINE Imaging No results found for this or any previous visit. UTERUS: The uterus is anteverted and measures about 10 x 7 x 7 cm. The thickness of the junctional zone is within normal limits estimated at about 5 mm sagittal T2 haste image 11/06.. The endometrium has normal thickness estimated at 3 mm image 18. There is distortion of the endometrial widening due to adjacent leiomyomas.. Multiple marginated enhancing observations related to the uterus compatible with leiomyomatous uterus ranging from subserosal to intracavitary. Findings include a subserosal dominant mass measuring about 6 cm right anterior uterine body axial T2 haste image 10/06. There is a dominant left-sided fundal region intramural observation estimated about 4 cm image 09/30. There are 2 adjacent intracavitary observations including fundal region observation measuring about 15 mm sagittal image 16 and uterine body intracavitary observation measuring about 3 cm image 18. Assessment/Plan Assessment & Plan Intramural, submucous, and subserous leiomyoma of uterus Asthma PCOS (polycystic ovarian syndrome) Obesity Plan to proceed with above procedure Deborah Price MD Cosigned by Melani Zaman MD at 06/26/2024 7:29 AM EST Associated attestation - Melani Zaman MD - 06/26/2024 7:29 AM EST I saw and evaluated the patient. I personally obtained the valdovinos and critical portions of the history and physical exam or was physically present for valdovinos and critical portions performed by the resident/fellow. I reviewed the resident/fellow's documentation and discussed the patient with the resident/fellow. I agree with the resident/fellow's medical decision making as documented in the note. Melani Zaman 06/26/24 7:29 AM [facility] Work Phone: 06-26-2024 History and physical note PreOp H+P History Of Present Illness Barb Estrada is a 34 y.o. female presenting for scheduled surgery: hysteroscopy, bilateral chromopertubation, laparoscopic myomectomy. Past Medical History She has a past medical history of Anemia, Asthma, Fibroids, Heavy menstrual period, and Insulin resistance. Surgical History She has a past surgical history that includes Dilation and curettage of uterus (01/24/2024) and Cyst Removal. OB History OB History Para Term AB Living 0 0 0 0 0 0 SAB IAB Ectopic Multiple Live Births 0 0 0 0 0 Review of Systems Constitutional: Negative for chills and fever. Respiratory: Negative for cough and chest tightness. Cardiovascular: Negative for chest pain. Gastrointestinal: Negative for abdominal pain. Neurological: Negative for syncope and weakness. Psychiatric/Behavioral: Negative for decreased concentration. Physical Exam Vitals reviewed. Constitutional: Appearance: Normal appearance. HENT: Head: Normocephalic and atraumatic. Eyes: Pupils: Pupils are equal, round, and reactive to light. Cardiovascular: Rate and Rhythm: Regular rhythm. Pulmonary: Effort: Pulmonary effort is normal. Abdominal: Palpations: Abdomen is soft. Skin: General: Skin is warm. Neurological: General: No focal deficit present. Mental Status: She is alert and oriented to person, place, and time. Psychiatric: Mood and Affect: Mood normal. Behavior: Behavior normal. Last Recorded Vitals: to be done on admission Relevant Results Medications No current facility-administered medications for this encounter. Labs CBC WBC Date Value Ref Range Status 06/25/2024 7.1 4.4 - 11.3 x10*3/uL Final nRBC Date Value Ref Range Status 06/25/2024 0.0 0.0 - 0.0 /100 WBCs Final RBC Date Value Ref Range Status 06/25/2024 4.23 4.00 - 5.20 x10*6/uL Final Hemoglobin Date Value Ref Range Status 06/25/2024 12.2 12.0 - 16.0 g/dL Final Hematocrit Date Value Ref Range Status 06/25/2024 37.9 36.0 - 46.0 % Final MCV Date Value Ref Range Status 06/25/2024 90 80 - 100 fL Final MCH Date Value Ref Range Status 06/25/2024 28.8 26.0 - 34.0 pg Final MCHC Date Value Ref Range Status 06/25/2024 32.2 32.0 - 36.0 g/dL Final RDW Date Value Ref Range Status 06/25/2024 12.9 11.5 - 14.5 % Final Platelets Date Value Ref Range Status 06/25/2024 319 150 - 450 x10*3/uL Final CMP No results found for: GLUCOSE , NA , K , CL , CO2 , ANIONGAP , BUN , CREATININE , EGFR , CALCIUM , ALBUMIN , ALKPHOS , PROT , AST , BILITOT , ALT Coagulation No results found for: PROTIME , INR , APTT , FIBRINOGEN Tests No results found for: HCGQUANT , HCGURINE Imaging No results found for this or any previous visit. UTERUS: The uterus is anteverted and measures about 10 x 7 x 7 cm. The thickness of the junctional zone is within normal limits estimated at about 5 mm sagittal T2 haste image 11/06.. The endometrium has normal thickness estimated at 3 mm image 11/06. There is distortion of the endometrial widening due to adjacent leiomyomas.. Multiple marginated enhancing observations related to the uterus compatible with leiomyomatous uterus ranging from subserosal to intracavitary. Findings include a subserosal dominant mass measuring about 6 cm right anterior uterine body axial T2 haste image 10/06. There is a dominant left-sided fundal region intramural observation estimated about 4 cm image 09/30. There are 2 adjacent intracavitary observations including fundal region observation measuring about 15 mm sagittal image 11/04 and uterine body intracavitary observation measuring about 3 cm image 11/06. Assessment/Plan Assessment & Plan Intramural, submucous, and subserous leiomyoma of uterus Asthma PCOS (polycystic ovarian syndrome) Obesity Plan to proceed with above procedure Deborah Price MD Cosigned by Melani Zaman MD at 06/26/2024 7:29 AM EST Associated attestation - Melani Zaman MD - 06/26/2024 7:29 AM EST I saw and evaluated the patient. I personally obtained the valdovinos and critical portions of the history and physical exam or was physically present for valdovinos and critical portions performed by the resident/fellow. I reviewed the resident/fellow's documentation and discussed the patient with the resident/fellow. I agree with the resident/fellow's medical decision making as documented in the note. Melani Zaman 06/26/24 7:29 AM documented in this encounter [facility] Work Phone: 05-18-2024 History of Present illness Narrative Images [...] worsened bleeding. Then in 01/24/[address] Abel Alvarez she underwent LSC and HSC with EMB due to thickened EMS (18 mm) and reportedly path was normal. 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 Patient also diagnosed previously with PCOS. Have you had any concerns about your fertility treatments so far? What are you goals for today's visit? 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 [...] 05/18/2024 9:02 AM documented in this encounter [facility] Work Phone: 03-12-2024 History of Present illness Narrative Associated Problem(s): Mild intermittent asthma (CMS/HCC) Cont w cathy Juliocesar in 6 months Associated Problem(s): EMILY (iron deficiency anemia) Continues with ferrous sulfate, Will check labs Cont with GI Pt is being referred to [place] for fibroids removal-end of apr () for consultation. Images from the original note were not included. Barb Estrada is a 34 y.o. female presents with chief complaint of No chief complaint on file. HPI: EMILY: no chest pain, dyspnea, fatigue, or leg cramps Asthma There is no chest tightness, cough, difficulty breathing, frequent throat clearing, hemoptysis, hoarse voice, shortness of breath, sputum production or wheezing. This is a chronic problem. The current episode started more than 1 year ago. The problem occurs intermittently. The problem has been unchanged. Pertinent negatives include no appetite change, chest pain, ear pain, fever, headaches, myalgias or sore throat. There are no known risk factors for lung disease. Her past medical history is significant for asthma. SUBJECTIVE: MEDICATIONS: Current Outpatient Medications Medication Instructions albuterol HFA 90 mcg/act inhaler 2 puffs, Inhalation, Every 6 hours PRN Cyanocobalamin (B-12) 1000 MCG capsule Oral Iron (Ferrous Sulfate) 325 mg, Oral, 2 times daily with meals metFORMIN XR (GLUCOPHAGE-XR) 500 mg, Oral, Daily with evening meal, Do not crush, chew, or split. montelukast (SINGULAIR) 10 mg, Oral, Nightly ALLERGIES: Allergies Allergen Reactions Cat Hair Extract REVIEW OF SYMPTOMS: Review of Systems Constitutional: Negative for appetite change, chills and fever. HENT: Negative for congestion, ear pain, hoarse voice and sore throat. Eyes: Negative for pain, discharge, redness and visual disturbance. Respiratory: Negative for cough, hemoptysis, sputum production, shortness of breath and wheezing. Cardiovascular: Negative for chest pain, palpitations and leg swelling. Gastrointestinal: Negative for abdominal pain, blood in stool, constipation, diarrhea, nausea and vomiting. Genitourinary: Negative for difficulty urinating, dysuria and frequency. Musculoskeletal: Negative for arthralgias, back pain, joint swelling and myalgias. Skin: Negative for rash and wound. Neurological: Negative for dizziness, tremors, seizures, syncope and headaches. Psychiatric/Behavioral: Negative for behavioral problems, self-injury and suicidal ideas. The patient is not nervous/anxious. Hematological: Does not bruise/bleed easily. Endocrine: Negative for polydipsia, polyphagia and polyuria. Allergic/Immunologic: Negative for environmental allergies and food allergies. PAST MEDICAL HISTORY Past Medical History: Diagnosis Date Encounter for gynecological examination (general) (routine) without abnormal findings History of COVID-19 longterm current use of inhaled steroid Menorrhagia with regular cycle Mild intermittent asthma (CMS/HCC) Sinus tachycardia Yeast infection Past Surgical History: Procedure Laterality Date DILATION AND CURETTAGE OF UTERUS 01/24/2024 GANGLION CYST EXCISION Right PAP SMEAR 03/05/2022 Normal family history includes Cancer in her maternal grandmother and paternal grandmother; Emphysema in her father; Hypertension in her father; Legionnaire's Disease in her father; No Known Problems in her brother and mother; Pancreatic cancer in her maternal grandmother. OBJECTIVE: Visit Vitals BP 118/88 (BP Location: Left arm, Patient Position: Sitting, BP Cuff Size: Adult long) Pulse 83 Temp 98.5 F (Temporal) Resp 18 Ht 5' 5 Wt 239 lb 3.2 oz SpO2 99% BMI 39.80 kg/m OB Status Having periods Smoking Status Never BSA 2.24 m Physical Exam Vitals and nursing note reviewed. Constitutional: General: She is not in acute distress. Appearance: Normal appearance. HENT: Head: Normocephalic and atraumatic. Right Ear: External ear normal. Left Ear: External ear normal. Nose: Nose normal. Mouth/Throat: Mouth: Mucous membranes are moist. Eyes: Extraocular Movements: Extraocular movements intact. Conjunctiva/sclera: Conjunctivae normal. Cardiovascular: Rate and Rhythm: Normal rate and regular rhythm. Pulses: Normal pulses. Heart sounds: Normal heart sounds. Pulmonary: Effort: Pulmonary effort is normal. Breath sounds: Normal breath sounds. Abdominal: General: Bowel sounds are normal. There is no distension. Palpations: Abdomen is soft. There is no mass. Tenderness: There is no abdominal tenderness. Musculoskeletal: General: Normal range of motion. Cervical back: Normal range of motion and neck supple. Skin: General: Skin is warm and dry. Capillary Refill: Capillary refill takes 2 to 3 seconds. Findings: No rash. Neurological: General: No focal deficit present. Mental Status: She is alert and oriented to person, place, and time. Psychiatric: Mood and Affect: Mood normal. Behavior: Behavior normal. Thought Content: Thought content normal. Judgment: Judgment normal. ASSESSMENT AND PLAN: No follow-ups on file. Problem List Items Addressed This Visit Mild intermittent asthma (CMS/HCC) Cont w singulair Fu in 6 months EMILY (iron deficiency anemia) - Primary Continues with ferrous sulfate, Will check labs Cont with GI Relevant Orders CBC and differential Iron level Ferritin Class 2 obesity due to excess calories without serious comorbidity with body mass index (BMI) of 39.0 to 39.9 in adult documented in this encounter [facility] 06-24-2023 Evaluation note Encounter Date Diagnosis Assessment [...] no improvement in 2 to 3 days [facility] Other 11-21-2023 Evaluation note* Encounter Date Diagnosis Assessment Notes Treatment Notes Treatment Clinical Notes May, Contact with and (suspected) exposure [...] and rest, Tylenol as directed, rx of [place] and prednisone, OTC Flonase, cool mist humidifier, [...] treatment plan. Patient left in stable condition [facility] Other 03-24-2022 Evaluation note* Encounter Date Diagnosis Assessment Notes Treatment Notes Treatment Clinical Notes Sep, Contact with and (suspected) exposure [...] Patient care instructions given in writting by [facility] Care At Home document [facility] Other Evaluation noteNo assessment information available [facility] Work Phone: Evaluation note* Diagnosis Uterine leiomyoma, unspecified location- Primary PCOS (polycystic ovarian syndrome) Polycystic ovaries Fertility testing Screening for diabetes mellitus Abnormal uterine bleeding Unspecified disorder of menstruation and other abnormal bleeding from female genital tract documented in this encounter [facility] Work Phone: Evaluation note* Diagnosis Intramural, submucous, and subserous leiomyoma of uterus- Primary Uterine leiomyoma, unspecified location Intramural, submucous, and subserous leiomyoma of uterus documented in this encounter [facility] Work Phone: Evaluation note* Diagnosis Intramural, submucous, and subserous leiomyoma of uterus- Primary Intramural, submucous, and subserous leiomyoma of uterus Post-operative state Other postprocedural status Asthma Unspecified asthma Chronic renal insufficiency Chronic kidney disease, unspecified PCOS (polycystic ovarian syndrome) Polycystic ovaries Obesity Obesity, unspecified documented in this encounter [facility] Work Phone: Evaluation note* Diagnosis Postop check- Primary Follow-up examination, following unspecified surgery documented in this encounter [facility] Work Phone: Evaluation note* Diagnosis Iron deficiency anemia, unspecified iron deficiency anemia type- Primary Class 2 obesity due to excess calories without serious comorbidity with body mass index (BMI) of 39.0 to 39.9 in adult Mild intermittent asthma, unspecified whether complicated (CMS/HCC) [facility] Diagnosis Iron deficiency anemia, unspecified iron deficiency anemia type- Primary [facility] Diagnosis Intramural, submucous, and subserous leiomyoma of uterus- Primary Encounter for preprocedural laboratory examination documented in this encounter [facility] Work Phone: Evaluation note* Diagnosis Encounter for wellness examination in adult- Primary Mild intermittent asthma, unspecified whether complicated (CMS/HCC) BMI 40.0-44.9, adult (CMS/[facility]) Elevated blood pressure reading Elevated blood pressure reading without diagnosis of hypertension Iron deficiency anemia, unspecified iron deficiency anemia type- Primary Elevated blood pressure reading Elevated blood pressure reading without diagnosis of hypertension Menorrhagia with regular cycle Class 3 severe obesity due to excess calories without serious comorbidity with body mass index (BMI) of 40.0 to 44.9 in adult (CMS/HCC) Iron deficiency anemia, unspecified iron deficiency anemia type- Primary Class 2 obesity due to excess calories without serious comorbidity with body mass index (BMI) of 39.0 to 39.9 in adult Mild intermittent asthma, unspecified whether complicated (CMS/HCC) Mild intermittent asthma, unspecified whether complicated (CMS/HCC) [facility] Diagnosis Submucous uterine fibroid- Primary Submucous uterine fibroid Post-operative state Other postprocedural status Class 2 obesity in adult documented in this encounter [facility] Work Phone: Evaluation note* Diagnosis Encounter for wellness examination in adult- Primary Mild intermittent asthma, unspecified whether complicated (CMS/HCC) BMI 40.0-44.9, adult (CMS/HCC) Elevated blood pressure reading Elevated blood pressure reading without diagnosis of hypertension Iron deficiency anemia, unspecified iron deficiency anemia type- Primary Elevated blood pressure reading Elevated blood pressure reading without diagnosis of hypertension Menorrhagia with regular cycle Class 3 severe obesity due to excess calories without serious comorbidity with body mass index (BMI) of 40.0 to 44.9 in adult (CMS/HCC) Iron deficiency anemia, unspecified iron deficiency anemia type- Primary Class 2 obesity due to excess calories without serious comorbidity with body mass index (BMI) of 39.0 to 39.9 in adult Mild intermittent asthma, unspecified whether complicated (CMS/[facility]) Iron deficiency anemia, unspecified iron deficiency anemia type [facility] Diagnosis Encounter for wellness examination in adult- Primary Mild intermittent asthma, unspecified whether complicated (CMS/HCC) BMI 40.0-44.9, adult ([facility]) Elevated blood pressure reading Elevated blood pressure reading without diagnosis of hypertension Iron deficiency anemia, unspecified iron deficiency anemia type- Primary Elevated blood pressure reading Elevated blood pressure reading without diagnosis of hypertension Menorrhagia with regular cycle Class 3 severe obesity due to excess calories without serious comorbidity with body mass index (BMI) of 40.0 to 44.9 in adult ([facility]) Iron deficiency anemia, unspecified iron deficiency anemia type- Primary Class 2 obesity due to excess calories without serious comorbidity with body mass index (BMI) of 39.0 to 39.9 in adult Mild intermittent asthma, unspecified whether complicated ([facility]) Encounter for wellness examination in adult- Primary Morbid (severe) obesity due to excess calories ([facility]) Body mass index (BMI) 39.0-39.9, adult Mild intermittent asthma without complication ([facility]) Insulin resistance Other abnormal glucose PCOS (polycystic ovarian syndrome) Polycystic ovaries Iron deficiency anemia, unspecified iron deficiency anemia type Elevated blood pressure reading Elevated blood pressure reading without diagnosis of hypertension [facility] Diagnosis PCOS (polycystic ovarian syndrome)- Primary Polycystic ovaries Postop check Follow-up examination, following unspecified surgery documented in this encounter [facility] Work Phone: History general Narrative - Reported* Type Description Date Medical History asthma Surgical History cyst removal 2004 Hospitalization History See Above Hospitalization History covid 2020 [facility] Other Reason for visit Narrative* Imaging (Routine) - Authorized Specialty Diagnoses / Procedures Referred By Rhoda t Referred To Contact Radiology Diagnoses Uterine leiomyoma, unspecified location Procedures MR pelvis w and wo IV contrast MR pelvis w and wo IV contrast Melani Zaman MD [address] [place] [address] Phone: tel: fax: Referral ID Status Reason Start Date Expiration Date Visits Requested Visits Authorized [id number] Authorized Perform Procedure 4 05/18/2025 1 1 [facility] Work Phone: reason for visit Narrative* Auth/Cert Specialty Diagnoses / Procedures Referred By Rhoda hewitt Referred To Contact Diagnoses Intramural, submucous, and subserous leiomyoma of uterus Intramural, submucous, and subserous leiomyoma of uterus [D25.1, D25.0, D25.2] Procedures MD LAPS MYOMECTOMY EXC 5/> MYOMAS >250 GRAMS MD CHROMOTUBATION OVIDUCT W/MATERIALS MD HYSTEROSCOPY DIAGNOSTIC SEPARATE PROCEDURE Laparoscopic Myomectomy Exploration Laparoscopy; Bilateral Chromopertubation Diagnostic Hysteroscopy Melani Zaman MD [address] [facility] [address] Phone: tel: fax: [facility] [place] [address] [place] [address] fax: Referral ID Status Reason Start Date Expiration Date Visits Re quested Visits Authorized [id number] 1 1 [facility] Work Phone: reason for visit Narrative* Imaging (Routine) - Authorized Specialty Diagnoses / Procedures Referred By Rhoda t Referred To Contact Radiology Diagnoses Intramural, submucous, and subserous leiomyoma of uterus Procedures US sonohysterogram Melani Zaman MD [address] [facility] [place], [address] [address] Phone: tel: fax: Referral ID Status Reason Start Date Expiration Date Visits Requested Visits Authorized [id number] Authorized Perform Procedure 06/26/2024 06/26/2025 1 1 [facility] Work Phone: Reason for visit Narrative* Auth/Cert Specialty Diagnoses / Procedures Referred By Rhoda t Referred To Contact Diagnoses Submucous uterine fibroid Submucous uterine fibroid [D25.0] Procedures MD HYSTEROSCOPY REMOVAL LEIOMYOMATA Hysteroscopy; Uterine Myomectomy Melani Zaman MD [address] [facility] [address] [place] [address] Phone: tel: fax: [facility] [place] [address] [place] [address] fax: Referral ID Status Reason Start Date Expiration Date Visits Re quested Visits Authorized [id number] 1 1 [facility] Work Phone: Summary Purpose Family History No Family History Records Found Relationship Condition Age at Onset Recorded Date/T boubacar father Hypertension Unknown Advance Directives No Advanced Directives Records Found Date Activated Date Inactivated Comments 06/26/2024 6:10 AM Question Answer Comments Plan of Care: Code Status Discussion Completed Decision Maker: Patient Date Activated Date Inactivated Comments 06/26/2024 6:10 AM Question Answer Comments Plan of Care: Code Status Discussion Completed Decision Maker: Patient Additional Source Comments REASON FOR VISIT (unrecogniz ed section and content) Reason Comments New [facility] Fertility Consultation Reason Comments Postop Visit Reason Onset Date Comments Med Refill 08/13/2024 Reason Comments Med Refill INFORMATION SOURCE (unrecogn ized section and content) DATE CREATED AUTHOR 08/03/2022 [facility] DATE CREATED AUTHOR AUTHOR'S ORGANIZ ATION 02/03/2024 [facility] DATE CREATED AUTHOR AUTHOR'S ORGANIZ ATION 08/20/2024 [facility] DATE CREATED AUTHOR AUTHOR'S ORGANIZ ATION 08/28/2024 [facility] DATE CREATED AUTHOR AUTHOR'S ORGANIZ ATION 09/12/2024 [facility] EPIC DATE CREATED AUTHOR AUTHOR'S ORGANIZ ATION 09/21/[address] [place] [address] Care Teams (unrecognized sec tion and content) Team Status: Active Member Role Status Dates PHYSICIAN NO FAMILY Primary Care Provider Active Team Status: Inactive Member Role Status Dates PHYSICIAN NO FAMILY Primary Care Provider Active Start: November 12, 2023 End: November 12, 2023 Abel Alvarez Attending Provider Active Start: 2023 End: November 12, 2023 Team Status: Inactive Member Role Status Dates PHYSICIAN NO FAMILY Primary Care Provider Active Start: November 12, 2023 End: November 12, 2023 Abel Alvarez DO Attending Provider Active Start : November 12, 2023 End: November 12, 2023 Team Status: Inactive Member Role Status Dates PHYSICIAN NO FAMILY Primary Care Provider Active Start: January 24, 2024 End: January 24, 2024 Abel Alvarez DO Attending Provider Active Start : January 24, 2024 End: January 24, 2024 [employer] Relationship Specialty Start Date End Date Cathy Wood LPN Licensed Practical Nurse 05/18/24 [employer] Relationship Specialty Start Date End Date Lucinda Rodriguez, ARMATURE WINDER REPAIR-POWER AND RECOVERY SHIFT ENGINEER [address] [place] [phone] PCP - General 06/03/24 Cathy Wood LPN Licensed Practical Nurse 05/18/24 [employer] Relationship Specialty Start Date End Date Katlyn Damon MD [address] [place] [address] PCP - External PCP Family Medicine 12/29/22 Chet Guajardo MD [address] [place] [address] PCP - General Family Medicine 10/01/23 Lucinda Rodriguez NP [address] [place] [address] PCP - [facility] 10/21/23 Lucinda Rodriguez NP [address] [place] [phone] Nurse Practitioner Family Medicine 10/01/23 [employer] Relationship Specialty Start Date End Date Lucinda Rodriguez, ARMATURE WINDER REPAIR-POWER AND RECOVERY SHIFT ENGINEER [address] [place] [phone] PCP - General 06/03/24 Cathy Wood, CHANDAN Licensed Practical Nurse 05/18/24 [employer] Relationship Specialty Start Date End Date Lucinda Rodriguez, ARMATURE WINDER REPAIR-POWER AND RECOVERY SHIFT ENGINEER [address] [place] [phone] PCP - General 06/03/24 Cathy Wood LPN Licensed Practical Nurse 05/18/24 [employer] Relationship Specialty Start Date End Date Katlyn Damon MD [address] [place] [phone] PCP - External PCP Family Medicine 12/29/22 Chet Guajardo MD [address] [place] [phone] PCP - General Family Medicine 10/01/23 Lucinda Rodriguez NP [address] [place] [address] PCP - [facility] 10/21/23 Lucinda Rodriguez NP [address] [place] [address] Nurse Practitioner Family Medicine 10/01/23 [employer] Relationship Specialty Start Date End Date Katlyn Damon MD [address] [phone] PCP - External PCP Family Medicine 12/29/22 Chet Guajardo MD [address] [place] [address] PCP - General Family Medicine 10/01/23 Lucinda Rodriguez NP [address] [place] [phone] PCP - [facility] 10/21/23 Lucinda Rodriguez NP [address] [place] [address] Nurse Practitioner Family Medicine 10/01/23 Tufter Hand Relationship Specialty Start Date End Date Katlyn Damon MD [address] [phone] PCP - External PCP Family Medicine 12/29/22 Chet Guajardo MD [address] [place] [address] PCP - General Family Medicine 10/01/23 Lucinda Rodriguez NP [address] [place] [address] PCP - [facility] [employer] 10/21/23 Lucinda Rodriguez NP [address] [place] [address] Nurse Practitioner Family Medicine 10/01/23 Tufter Hand Relationship Specialty Start Date End Date Katlyn Damon MD [address] [phone] PCP - External PCP Family Medicine 12/29/22 Chet Guajardo MD [address] [place] [address] PCP - General Family Medicine 10/01/23 Lucinda Rodriguez NP [address] [place] [phone] PCP - [facility] [employer] 10/21/23 Lucinda Rodriguez NP [address] [place] [address] Nurse Practitioner Family Medicine 10/01/23 Tufter Hand Relationship Specialty Start Date End Date Katlyn Damon MD [address] [phone] PCP - External PCP Family Medicine 12/29/22 Chet Guajardo MD [address] [place] [phone] PCP - General Family Medicine 10/01/23 Lucinda Rodriguez NP [address] [place] [address] PCP - [facility] [employer] 10/21/23 Lucinda Rodriguez NP [address] [place] [address] Nurse Practitioner Family Medicine 10/01/23 [employer] Relationship Specialty Start Date End Date Lucinda Rodriguez APRN-POWER AND RECOVERY SHIFT ENGINEER [address] [place] [address] PCP - General 06/03/24 Cathy Wood LPN Licensed Practical Nurse 05/18/24 [employer] Relationship Specialty Start Date End Date Katlyn Damon MD [address] [place] [phone] PCP - External PCP Family Medicine 12/29/22 Chet Guajardo MD [address] [place] [phone] PCP - General Family Medicine 10/01/23 Lucinda Rodriguez NP [address] [place] [phone] PCP - [facility] 10/21/23 Lucinda Rodriguez CONTINUOUS PROCESS COFFEE ROASTER [address] [place] [phone] Nurse Practitioner Family Medicine 10/01/23 Tu[employer] Hand Relationship Specialty Start Date End Date Katlyn Damon MD [address] [place] [address] PCP - External PCP Family Medicine 12/29/22 Chet Guajardo MD [address] [place] [address] PCP - General Family Medicine 10/01/23 Lucinda Rodriguez NP [address] [place] [address] PCP - [facility] [employer] 10/21/23 Lucinda Rodriguez NP [address] [place] [address] Nurse Practitioner Family Medicine 10/01/23 Tufter Hand Relationship Specialty Start Date End Date Katlyn Damon MD [address] [place] [address] PCP - External PCP Family Medicine 12/29/22 Chet Guajardo MD [address] [place] [address] PCP - General Family Medicine 10/01/23 Lucinda Rodriguez NP [address] [place] [address] PCP - [facility] [employer] 10/21/23 Lucinda Rodriguez NP [address] [place] [address] Nurse Practitioner Family Medicine 10/01/23 Tu[employer] Hand Relationship Specialty Start Date End Date Katlyn Damon MD [address] [place] [phone] PCP - External PCP Family Medicine 12/29/22 hCet Guajardo MD [address] [place] [address] PCP - General Family Medicine 10/01/23 Lucinda Rodriguez NP [address] [place] [phone] PCP - [facility] 10/21/23 Lucinda Rodriguez NP [address] [place] [address] Nurse Practitioner Family Medicine 10/01/23 [employer] Relationship Specialty Start Date End Date Lucinda Rodriguez APRN-POWER AND RECOVERY SHIFT ENGINEER [address] [place] [address] PCP - General 06/03/24 Cathy Wood LPN Licensed Practical Nurse 05/18/24 Goals (unrecognized section and content) Goals may be documented in a n alternate section Scheduled Active and Recently Administ ered Medications (unrecognized section and content) Medication Order 06/24/2024 06/25/2024 06/26/2024 acetaminophen (Tylenol) tablet 650 mg (COMPLETED) 650 mg, oral, Once, On Sat06/26/24 at 1345, For 1 dose, Administer tablet or oral liquid per patient preference., If ordered PRN for pain, nurse is permitted to administer this medication for higher pain scores based on patient preference? Yes 1327 (Given - Provid er: Nell Real RN) acetaminophen (Tylenol) tablet 975 mg (COMPLETED) 975 mg, oral, Once, On Sat06/26/24 at 0630, For 1 dose, Preprocedure, If ordered PRN for pain, nurse is permitted to administer this medication for higher pain scores based on patient preference? Yes 8949 (Given - Provid er: Luly Salas RN) celecoxib (CeleBREX) capsule 400 mg (COMPLETED) 400 mg, oral, Once, On Sat06/26/24 at 0630, For 1 dose, Preprocedure, Capsules may be opened and sprinkled on a spoonful of cold or room temperature applesauce. 0638 (Given - Provid er: Luly Salas RN) gabapentin (Neurontin) capsule 600 mg (COMPLETED) 600 mg, oral, Once, On Sat06/26/24 at 0630, For 1 dose, Preprocedure, Capsules may be opened and sprinkled on food (eg, applesauce, orange juice, pudding). Capsules may be opened and sprinkled on food (eg, applesauce, orange juice, pudding 0638 (Given - Provid er: Luly Salas RN) lidocaine PF (Xylocaine) 10 mg/mL (1 %) injection 1 mg 1 mg (0.1 mL), subcutaneous, Once, On Sat06/26/24 at 1315, For 1 dose, Recovery (only), To be used for IV insertion ONLY 1259 (Not Given - Pr ovider: Nell Real RN - Reason: Other - Comment: per provider) oxygen (O2) therapy inhalation, Continuous - , First dose on Sat06/26/24 at 1315, Recovery (only), Device: Nasal Cannula, Rate in liters per minute: 3 LPM, Keep O2 Sat Above: 92% 1241 (Stopped - Prov ider: Nell Real RN)1315 (Due) PRN Medication Order 06/24/2024 06/25/2024 06/26/2024 BUPivacaine HCl (Marcaine) 0.25 % (2.5 mg/mL) injection (CANCELED) As needed, Starting on Sat06/26/24 at 1232, Intraprocedure 1232 (Given - Provid er: Melani Zaman MD) HYDROmorphone (Dilaudid) injection 0.2 mg 0.2 mg, intravenous, Every 5 min PRN, pain moderate (4-6), first line, Starting on Sat06/26/24 at 1251, Recovery (only), Max total of 4 mg regardless of dose. HYDROmorphone (Dilaudid) injection 0.5 mg 0.5 mg, intravenous, Every 5 min PRN, pain severe (7-10), first line, Starting on Sat06/26/24 at 1251, Recovery (only), Max total of 4 mg regardless of dose. 1258 (Given - Provid er: Nell Real RN)1318 (Given - Provider: Nell Real RN) meperidine PF (Demerol) injection 12.5 mg 12.5 mg, intravenous, Every 10 min PRN, shivering, Starting on Sat06/26/24 at 1251, Recovery (only) methylene blue (Provayblue) 4 mL in sodium chloride 0.9% 500 mL mixture (CANCELED) As needed, Starting on Sat06/26/24 at 0951, Intraprocedure 0951 (Given - Provid er: Melani Zaman MD - Comment: used for chromopertubation) ondansetron (Zofran) injection 4 mg 4 mg, intravenous, Once as needed, nausea/vomiting, first line, Starting on Sat06/26/24 at 1251, For 1 dose, Recovery (only), When administering via IV Push, administer over 3-5 minutes. oxyCODONE (Roxicodone) immediate release tablet 5 mg 5 mg, oral, Every 4 hours PRN, pain mild (1-3), first line, Starting on Sat06/26/24 at 1251, Recovery (only), When able to take oral medications., If ordered PRN for pain, nurse is permitted to administer this medication for higher pain scores based on patient preference? Yes 1314 (Given - Provid er: Nell Real RN) promethazine (Phenergan) 6.25 mg in sodium chloride 0.9% 50 mL IV 6.25 mg, intravenous, Administer over 15 Minutes, Once as needed, Nausea/vomiting, second line, Starting on Sat06/26/24 at 1251, For 1 dose, Recovery (only) sodium chloride 0.9 % irrigation solution (CANCELED) As needed, Starting on Sat06/26/24 at 1131, Intraprocedure 1131 (Given - Provid er: Melain Zaman MD - Comment: normal saline hysteroscopic deficit - 200ml)1203 (Given - Provider: Melani Zaman MD) vasopressin (Vasostrict) 20 Units in sodium chloride (PF) 0.9% 100 mL mixture (CANCELED) As needed, Starting on Sat06/26/24 at 0951, Intraprocedure 1130 (Given - Provid er: Melani Zaman MD) Scheduled Medication Order 08/19/2024 08/20/2024 08/21/2024 acetaminophen (Tylenol) tablet 975 mg (COMPLETED) 975 mg, oral, Once, On Sat08/21/24 at 1245, For 1 dose, Preprocedure, If ordered PRN for pain, nurse is permitted to administer this medication for higher pain scores based on patient preference? Yes 1234 (Given - Provid er: Negin Prince RN) celecoxib (CeleBREX) capsule 400 mg (COMPLETED) 400 mg, oral, Once, On Sat08/21/24 at 1245, For 1 dose, Preprocedure, Capsules may be opened and sprinkled on a spoonful of cold or room temperature applesauce. 1234 (Given - Provid er: Negin Prince RN) gabapentin (Neurontin) capsule 600 mg (COMPLETED) 600 mg, oral, Once, On Sat08/21/24 at 1245, For 1 dose, Preprocedure, Capsules may be opened and sprinkled on food (eg, applesauce, orange juice, pudding). Capsules may be opened and sprinkled on food (eg, applesauce, orange juice, pudding 1234 (Given - Provid er: Negin Prince RN) Continuous Medication Order 08/19/2024 08/20/2024 08/21/2024 lactated Ringer's infusion 100 mL/hr, intravenous, Continuous, Starting on Sat08/21/24 at 1430, For 2 hours, Recovery (only) 1419 (Continued from OR - Provider: Liane Rashid RN)1500 (Stopped - Provider: Liane Rashid RN) PRN Medication Order 08/19/2024 08/20/2024 08/21/2024 droperidol (Inapsine) injection 0.625 mg 0.625 mg, intravenous, Once as needed, nausea/vomiting, second line, Starting on Sat08/21/24 at 1413, For 1 dose, Recovery (only), Monitor QTc while on therapy (2 lead monitoring) DO NOT GIVE IF PATIENT HAS PARKINSON'S DISEASE. hydrALAZINE (Apresoline) injection 5 mg 5 mg, intravenous, Administer over 2 Minutes, Every 30 min PRN, systolic blood pressure greater than 180 mmHg and heart rate less than 60 BPM, Starting on Sat08/21/24 at 1413, For 2 doses, Recovery (only) HYDROmorphone (Dilaudid) injection 0.25 mg 0.25 mg, intravenous, Every 5 min PRN, pain moderate (4-6), first line, Starting on Sat08/21/24 at 1413, Recovery (only), Max total of 4 mg regardless of dose. HYDROmorphone (Dilaudid) injection 0.5 mg 0.5 mg, intravenous, Every 5 min PRN, pain severe (7-10), first line, Starting on Sat08/21/24 at 1413, Recovery (only), Max total of 4 mg regardless of dose. ondansetron (Zofran) injection 4 mg 4 mg, intravenous, Once as needed, nausea/vomiting, first line, Starting on Sat08/21/24 at 1413, For 1 dose, Recovery (only), When administering via IV Push, administer over 3-5 minutes. oxyCODONE (Roxicodone) immediate release tablet 5 mg 5 mg, oral, Every 15 min PRN, pain mild (1-3), first line, pain mild (1-3), second line, Starting on Sat08/21/24 at 1413, For 2 doses, Recovery (only), When able to take oral medications., If ordered PRN for pain, nurse is permitted to administer this medication for higher pain scores based on patient preference? Yes oxygen (O2) therapy inhalation, Continuous PRN - O2/gases, other, Starting on Sat08/21/24 at 1413, Recovery (only), Titrate to nasal cannula., Device: Simple Face Mask, Rate in Liters per minute: 6 LPM, Keep O2 Sat Above: 92% prochlorperazine (Compazine) injection 5 mg 5 mg, intravenous, Once as needed, nausea/vomiting, third line, persistent post-op nausea/vomiting, Starting on Sat08/21/24 at 1413, For 1 dose, Recovery (only), DO NOT GIVE IF THE PATIENT HAS PARKINSON'S DISEASE. FOR RECORDS PERTAINING TO PATIENTS WHO ARE [...] BE BASED ON THE PRIMARY CLINICAL RECORDS. [facility] provides no warranty or guarantee of the accuracy or completeness of information in this document.
[2024-09-29 14:10] LABS: Age Gdln ACOG Testing Note (.); HPV Aptima Positive (Negative); IGP, Aptima HPV, rfx 16/18,45 Note (.)
== END 2024-09-23 19:50 | disposition home or self-care (01) ==
LOC: LAB 19:49
PROVIDERS: PCP Nurse Practitioner; Visit Provider Obstetrics & Gynecology
DX: Z01.419 Encounter for gynecological examination (general) (routine) without abnormal findings (principal)
CPT/HCPCS: 87624; 88175

== ENCOUNTER 2024-10-13 15:59 | Outpatient (REF) | payer BC, SELFPAY | END 2024-10-13 16:00 | disposition home or self-care (01) | LOC: LAB 15:59 | PROVIDERS: PCP Nurse Practitioner; Visit Provider Obstetrics & Gynecology | DX: R87.610 Atypical squamous cells of undetermined significance on cytologic smear of cervix (ASC-US) (principal) | CPT/HCPCS: 88305 ==

== ENCOUNTER 2024-11-10 10:19 | Outpatient (OUT) | payer BC, SELFPAY ==
[2024-11-10 10:57] LABS: Basophils Absolute Auto 0.1 10^3/uL (0.0-0.1); Basophils Percent Auto 0.9 % (0.2-2.0); Eosinophils Absolute Auto 0.1 10^3/uL (0.0-0.7); Eosinophils Percent Auto 1.4 % (0.9-7.0); Hematocrit 37.4 % (36.0-48.0); Hemoglobin 12.5 g/dL (12.0-16.0); Immature Granulocytes Abs Auto 0.02 10^3/uL (0.00-0.03); Immature Granulocytes Pct Auto 0.3 % (0.0-0.5); Lymphocytes Absolute Auto 1.9 10^3/uL (1.2-3.8); Lymphocytes Percent Auto 23.5 % (20.5-60.0); Mean Corpuscular HGB Conc 33.4 g/dL (29.9-35.2); Mean Corpuscular Hemoglobin 29.8 pg (26.7-34.0); Mean Platelet Volume 10.3 fL (9.5-13.5); Monocytes Absolute Auto 0.6 10^3/uL (0.3-0.8); Monocytes Percent Auto 7.4 % (1.7-12.0); Neutrophils Absolute Auto 5.3 10^3/uL (1.4-6.5); Neutrophils Percent Auto 66.5 % (43.0-75.0); Platelet Count 228 10^3/uL (150-450); Red Cell Distribution Width 12.3 % (11.0-15.0)
[2024-11-10 11:11] LABS: Estimated Average Glucose 114 mg/dL; Glycohemoglobin A1C 5.6 % (4.5-6.2)
[2024-11-10 11:28] LABS: Alanine Aminotransferase 24 U/L (14-59); Albumin Globulin Ratio 0.9; Albumin Level 3.3 g/dL (3.4-5.0); Alkaline Phosphatase 56 U/L (46-116); Anion Gap 13.5; Aspartate Amino Transferase 14 U/L (15-37); BUN Creatinine Ratio 13.9; Bilirubin Total 0.4 mg/dL (0.2-1.0); Calcium 8.6 mg/dL (8.5-10.1); Carbon Dioxide 24.3 mmol/L (21.0-32.0); Chloride 104 mmol/L (98-107); Chol HDL Ratio 3.6; Cholesterol 185 mg/dL (<=200); Estimated GFR (African America >60 (>=60 mL/min/1.73m^2); Estimated GFR (Non-African Ame >60 (>=60 mL/min/1.73m^2); Globulin 3.6 g/dL; Glucose 94 mg/dL (74-106); HDL Cholesterol 52 mg/dL (40-60); Potassium 3.8 mmol/L (3.5-5.1); Sodium 138 mmol/L (136-145); Thyroid Stimulating Hormone 0.791 uIU/mL (0.358-3.740); Total Protein 6.9 g/dL (6.4-8.2); Triglycerides 170 mg/dL (<=150)
[2024-11-10 11:36] LABS: Percent Iron Saturation 34.7 %
[2024-11-11 04:07] LABS: Transferrin 266 mg/dL (192-364); Vitamin B12 1182 pg/mL (232-1245)
[2024-11-11 16:09] LABS: Insulin 20.7 uIU/mL (2.6-24.9)
== END 2024-11-10 10:20 | disposition home or self-care (01) ==
LOC: LAB 10:21
PROVIDERS: PCP Nurse Practitioner; Visit Provider Nurse Practitioner
DX: Z00.00 Encounter for general adult medical examination without abnormal findings (principal); E88.819 Insulin resistance, unspecified; E28.2 Polycystic ovarian syndrome; D50.9 Iron deficiency anemia, unspecified
CPT/HCPCS: 36415; 80053; 80061; 82607; 82728; 83036; 83525; 83540; 83550; 84443; 84466; 85025

== ENCOUNTER 2025-03-08 06:39 | Outpatient (OUT) | payer BC, SELFPAY ==
--- OUTSIDE RECORDS SUMMARY | 2025-03-08 06:43 | XMS_ITS | CCD ---
Author Organization [facility] CliniSysd Care Team Providers Care Director Regulatory Compliance Name Role Phone Alice Tamez Unavailable DIPESH, [...] Attending Provider DO Abel Alvarez Attending Provider Cathy Wood LPN Unavailable Unavailab Lucinda Arauz Primary Care Provider Katlyn Damon MD Unavailable Chet Guajardo MD Primary Care Provider [phone] Jennifer EMPLOYMENT ADVISOR, Lucinda Unavailable Jennifer EMPLOYMENT ADVISOR, Lucinda Unavailable MELANI ZAMAN Referring Unavailable LUCINDA RODRIGUEZ Primary Care Unavailable MELANI ZAMAN Admitting Unavailable MELANI ZAMAN Attending Unavailable MELANI ZAMAN Admitting Unavailable MELANI ZAMAN Attending Unavailable JENNIFER LUCINDA SHEPHERD Primary Care Unavailable Israel FABRIC SOURCER, Cathy M Unavailable Unavailab MELANI Baez Attending Unavailable AICSILVANO, LUCINDA SHEPHERD Primary Care Unavailable DARLENE JULIEN Attending Unavailable AICHOLEGARIO, LUCINDA CORA Primary Care Unavailable DARLENE JULIEN Attending Unavailable MELANI ZAMAN Referring Unavailable AICSILVANO, LUCINDA SHEPHERD Primary Care Unavailable MELANI ZAMAN Attending Unavailable AICHHOLDavid, LUCINDA CORA Primary Care Unavailable DARLENE JULIEN Attending Unavailable AICHHOLDavid, LUCINDA CORA Primary Care Unavailable MELANI ZAMAN Attending Unavailable FLORECITAHOLDavid, LUCINDA CORA Primary Care Unavailable JENNIFER, LUCINDA Attending Unavailable KIM, ABEL Attending Unavailable KIM, ABEL Attending Unavailable KIM, ABEL Attending Unavailable KIM, ABEL Attending Unavailable KIM, ABEL Attending Unavailable KIM, ABEL Attending Unavailable SHAMA ASH Attending Unavailable JENNIFER, LUCINDA Attending Unavailable KimAbel abdul DO Attending Provider [phone] Kim, Abel Admitting Unavailable Kim, Abel Attending Unavailable Kim, Abel Admitting Unavailable NO FAMILY, PHYSICIAN Primary Care Unavailable Kim, Abel Attending Unavailable Kim, Abel Admitting Unavailable NO FAMILY, PHYSICIAN Primary Care Unavailable Kim, Abel Attending Unavailable Allergies Allergy Classification Reported Allergen(s) Allergy Type Date of Onset Reaction(s) Facility (20 sources) Cat Hair Extract Propensity to adverse reactions 4 [facility] Medications Current Medications Medication Drug Class(es) Dates Sig (Normalized) Sig (Original) [id number] 200 actuat albuterol 0.09 mg/actuat metered dose inhaler (20 sources) beta2-Adrenergic Agonist Start: 08-22-2023 take 2 puff(s) by inhalation every six hours for wheezing albuterol HFA 90 mcg/act inhaler Indications: Mild intermittent asthma, unspecified whether complicated (HCC) Inhale 2 puffs every 6 (six) hours if needed for wheezing or shortness of breath 18 g 08/22/2023 Active Start: 08-22-2023 take 2 puff(s) by in halation every six hours albuterol 90 mcg/actuation inhaler Inhale 2 puffs every 6 hours if needed. 08/22/2023 Active calcium chloride 0.0014 meq/ml / [...] HAS PARKINSON'S DISEASE. Ethinyl Estradiol / ethynodiol (7 sources) Progestin, Estrogen Start: 12-11-2024 End: 12-11-2025 ethynodiol-ethinyl estradiol (Kelnor, Zovia) 1-35 MG-MCG tablet Indications: control counseling Take 1 tablet by mouth in the morning. 28 tablet 12 12/11/2024 12/11/2025 Active Start: 09-15-2024 End: 09-15-2025 ethynodiol diac-eth estradio L (Kelnor 1/35, 28,) 1-35 mg-mcg tablet Indications: Uses control Take 1 tablet by mouth once daily. 28 tablet 2 09/15/2024 09/15/2025 Active take 1 tablet by connie th every twenty-four hours Kelnor 1/35 1-35 MG-MCG 1 tablet Orally Once a day Not-Taking take 1 tablet by connie th every twenty-four hours Kelnor 1/35 1-35 MG-MCG 1 tablet Orally Once a day Active Ethynodiol Diac-Eth Estradiol (KELNOR 1/35 PO) (4 sources) Start: 09-27-2024 Ethynodiol Joann c-Eth Estradiol (KELNOR 1/35 PO) Take 1 tablet by mouth Daily 09/27/2024 Active ferrous sulfate 325 mg oral tablet (20 sources) Start: 09-07-2024 End: 12-06-2024 take 1 [...] tablet (20 sources) Biguanide Start: 01-20-2024 End: 11-10-2025 take 1 tablet by mouth every twenty-four hours at mealtime metFORMIN XR (Glucophage-XR) 500 MG 24 hr tablet Indications: Encounter for weight management TAKE 1 TABLET (500 MG) BY MOUTH IN THE EVENING. TAKE WITH MEALS DO NOT CRUSH, CHEW, OR SPLIT. 90 tablet 3 11/10/2024 11/10/2025 Active montelukast 10 mg oral tablet (20 sources) Leukotriene Receptor Antagonist Start: 02-20-2024 End: 05-08-2025 take 1 tablet by mouth at bedtime montelukast (Singulair) 10 MG tablet Indications: Mild intermittent asthma, unspecified whether complicated (HCC) Take 1 tablet (10 mg) by mouth at bedtime 90 tablet 02/07/2025 05/08/2025 Active Start: 06-11-2023 take 1 tablet by connie th every twenty-four hours Montelukast Sodium 10 MG 1 tablet Orally Once a day for 30 day(s) May, Active nystatin 100 unt/mg topical ointment (1 source) Polyene Antifungal Start: 01-04-2025 End: 01-18-2025 nystatin (Mycostatin) ointment Indications: Candidiasis of breast Apply topically in the morning and before bedtime. Do all this for 14 days. Apply to affected area twice a day for 14 days. 30 g 01/04/2025 01/18/2025 Active 2 ml ondansetron 2 mg/ml injection [...] Start: 06-26-2024 take 1 tablet by connie every four hours as needed 5 mg, [...] Above: 92% predniSONE 20 mg oral tablet (4 sources) Start: 02-09-2025 predniSONE (De ltasone) 20 MG tablet Indications: Rash 1 pill three times a day for 3 days, then 1 pill twice a day for 3 days, then 1 pill once a day for 3 days. Take with food 18 tablet 02/09/2025 Active Start: 06-11-2023 take 1 tablet by [facility] every twelve hours predniSONE 20 MG 1 tablet Orally bid for 5 day(s) Jun, Active prochlorperazine 5 mg/ml injectable solution (1 source) Phenothiazine Start: 08-21-2024 5 mg, intraven ous, Once as needed, nausea/vomiting, third line, persistent post-op nausea/vomiting, Starting on Sat08/21/24 at 1413, For 1 dose, Recovery (only), DO NOT GIVE IF THE PATIENT HAS PARKINSON'S DISEASE. promethazine (Phenergan) 6.25 mg in sodium chloride 0.9% 50 mL IV (1 source) Start: 06-26-2024 6.25 mg, intra venous, Administer over 15 Minutes, Once as needed, Nausea/vomiting, second line, Starting on Sat06/26/24 at 1251, For 1 dose, Recovery (only) triamcinolone acetonide 1 mg/ml topical cream (3 sources) Corticosteroid Start: 02-01-2025 End: 02-11-2025 triamcinolone (Kenalog) 0.1 % cream Indications: Poison carlos Apply topically every 12 (twelve) hours if needed for irritation or rash for up to 10 days Apply to affected area 1-2 times daily as needed. Avoid face and groin. 30 g 02/01/2025 02/11/2025 Active vitamin b12 1 mg oral capsule (20 sources) Vitamin B12 Cyanocobalamin ( B-12) 1000 MCG capsule Take by mouth Active Completed/Discontinued Medications Medication Drug Class(es) Dates [...] 1.5 mg/ml oral solution (2 sources) Uncompetitive K-iytqpv-J-aspartate Receptor Antagonist, Sigma-1 Agonist Start: 06-11-2023 take 10 mL by mouth every eight hours [place] DM 7.5-7.5 MG/5ML 10 mL Orally every 8 hours for 5 days May, Not-Taking ethinyl estradiol 0.035 mg / norgestimate 0.25 mg oral tablet (10 sources) Progestin, Estrogen Start: 07-30-2024 End: 07-30-2025 norgestimate-eth inyl estradiol (Ortho-Cyclen) 0.25-35 MG-MCG tablet Take 1 tablet by mouth in the morning. 07/30/2024 10/13/2024 Discontinued Start: 07-30-2024 End: 07-30-2025 take 1 tablet by mouth once daily norgestimate-ethinyl estradiol (Ortho-Cyclen) 0.25-35 mg-mcg tablet Indications: Female infertility Take 1 tablet by mouth once daily. Take active pills only as directed per provider 28 tablet 2 07/30/2024 07/30/2025 Active gabapentin 300 mg oral capsule (2 sources) Anti-epileptic Agent Start: 08-21-2024 End: 08-21-2024 take 1 capsule by mouth once 600 mg, oral, Once, On 08/21/24 at 1245, [...] hours 01/24/2024 03/12/2024 Discontinued (Therapy completed) levonorgestrel 0.227048 mg/hr intrauterine system (3 sources) Progestin, Progestin-containing [...] 10 day(s) Sep, Not-Taking polyethylene glycol 3350 97757 mg powder for oral solution (4 sources) [...] Problem Classification Problem Date Documented Date Episodic/Chronic Allergic reactions (4 sources) Contact dermatitis due to poison carlos; Translations: [Allergic contact dermatitis due to plants, except food] Onset: 02-01-2025 02-01-2025 Episodic Asthma (20 sources) Mild intermittent asthma; Translations: [Mild intermittent asthma, uncomplicated] Onset: 07-25-2023 07-25-2023 Chronic Cancer of cervix (1 source) Atypical squamous cells of undetermined significance on cervical Papanicolaou smear; Translations: [Atypical squamous cells of undetermined significance on cytologic smear of cervix (ASC-US)] 10-13-2024 Episodic Chronic kidney disease (7 sources) Chronic renal insufficiency; Translations: [Chronic kidney disease, unspecified] Onset: 06-26-2024 Resolved: 06-26-2024 06-26-2024 Chronic Disorders of lipid metabolism (20 sources) Hypertriglyceridemia; Translations: [Pure hyperglyceridemia] Onset: 09-18-2023 09-18-2023 Chronic Immunizations and screening for infectious disease (8 sources) Contact with and (suspected) exposure to other viral communicable diseases; Translations: [Encounter for screening for human papillomavirus (HPV)] Onset: 10-05-2021 Resolved: 10-12-2021 Episodic Menstrual disorders (20 sources) Menorrhagia; Translations: [Excessive and frequent menstruation with regular cycle] Onset: 08-22-2023 08-22-2023 Chronic Mycoses (5 sources) Candidiasis; Translations: [Other sites of candidiasis] Onset: 01-04-2025 01-04-2025 Episodic Other aftercare (3 sources) Surgical follow-up; Translations: [Encounter for follow-up examination after completed treatment for conditions other than malignant neoplasm] 07-07-2024 Episodic Other endocrine disorders (20 sources) Polycystic ovary syndrome; Translations: [Polycystic ovarian syndrome] Onset: 06-26-2024 05-18-2024 Chronic Other endocrine disorders (2 sources) Polycystic ovarian syndrome; Translations: [Polycystic ovarian syndrome] Onset: 05-18-2024 Chronic Other female genital disorders (1 source) Abnormal uterine bleeding; Translations: [Abnormal uterine and vaginal bleeding, unspecified] 05-18-2024 Chronic Other female genital disorders (20 sources) Heavy episode of vaginal bleeding; Translations: [...] Episodic Other nutritional; endocrine; and metabolic disorders (20 sources) Insulin resistance; Translations: [Insulin resistance] Onset: 10-14-2023 10-14-2023 Chronic Other nutritional; endocrine; and metabolic disorders (20 sources) Obesity caused by energy imbalance; Translations: [Class 2 obesity due to excess calories without serious comorbidity with body mass index (BMI) of 39.0 to 39.9 in adult] Onset: 03-12-2024 03-12-2024 Chronic Other nutritional; endocrine; and metabolic disorders (8 sources) Obesity; Translations: [Obesity, unspecified] Onset: 06-26-2024 06-26-2024 Chronic Other nutritional; endocrine; and metabolic disorders (18 sources) Body mass index 30+ - obesity; Translations: [Body mass index (BMI) 39.0-39.9, adult] Onset: 09-10-2024 09-10-2024 Chronic Other skin disorders (2 sources) Eruption; Translations: [Rash and other nonspecific skin eruption] Onset: 02-09-2025 02-09-2025 Episodic Other upper respiratory infections (4 sources) Streptococcal pharyngitis; Translations: [Acute upper respiratory infection, unspecified] Onset: 10-12-2021 Resolved: 10-12-2021 Episodic Residual codes; unclassified (2 sources) Postoperative state; Translations: [Other specified postprocedural states] 06-26-2024 Episodic Unclassified (2 sources) Postop Visit; Translations: [Postop Visit] Onset: 07-07-2024 Past or Other Problems Problem Classification Problem Date Documented Da te Episodic/Chronic Benign neoplasm of uterus (20 sources) Uterine leiomyoma; Translations: [Leiomyoma of uterus, unspecified] Onset: 05-18-2024 05-18-2024 Episodic Cardiac dysrhythmias (20 sources) Sinus tachycardia; Translations: [Tachycardia, unspecified] Onset: 07-25-2023 Resolved: 08-22-2023 08-22-2023 Episodic Contraceptive and procreative management (3 sources) Patient encounter status; Translations: [Encounter for fertility testing] Onset: 05-18-2024 05-18-2024 Episodic Deficiency and other anemia (20 sources) Anemia; Translations: [Other specified anemias] Onset: 09-17-2023 09-17-2023 Episodic Deficiency and other anemia (20 sources) Iron deficiency anemia; Translations: [Iron deficiency anemia, unspecified] Onset: 09-20-2023 09-20-2023 Episodic Other and unspecified benign neoplasm (20 sources) Leiomyoma; Translations: [Benign neoplasm of connective and other soft tissue, unspecified] Onset: 12-25-2023 12-25-2023 Episodic Other circulatory disease (20 sources) Elevated blood pressure; Translations: [Elevated blood-pressure reading, without diagnosis of hypertension] Onset: 08-22-2023 08-22-2023 Episodic Other infections; including parasitic (20 sources) Personal history of other infectious and parasitic diseases; Translations: [History of COVID-19] Onset: 07-25-2023 07-25-2023 Episodic Other nutritional; endocrine; and metabolic disorders (20 sources) Body mass index 40+ - severely obese; Translations: [Body mass index (BMI) 40.0-44.9, adult] Onset: 08-22-2023 Resolved: 03-12-2024 03-12-2024 Chronic Other nutritional; endocrine; and metabolic disorders (20 sources) Severe obesity; Translations: [Class 3 severe [...] Test Name Value Interpretation Reference Range Facility ALL CBC WITH AUTO DIFFon BASOPHILS ABSOLUTE AUTO 0.1 [facility] Basophils/100 WBC (Bld) 0.9 % 0.2 - 2.0 % [facility] Eosinophils/100 WBC (Bld) 1.4 % 0.9 - 7.0 % [facility] Erythrocyte distribution width (RBC) [Ratio] 12.3 % 11.0 - 15.0 % [facility] Hematocrit (Bld) [Volume fraction] 37.4 % 36.0 - 48.0 % [facility] Hemoglobin (Bld) [Mass/Vol] 12.5 g/dL 12.0 - 16.0 g/dL [facility] IMMATURE GRANULOCYTES ABS AUTO 0.02 [facility] Immature granulocytes/100 WBC (Bld) 0.3 % 0.0 - 0.5 % [facility] LYMPHOCYTES ABSOLUTE AUTO 1.9 [facility] Lymphocytes/100 WBC (Bld) 23.5 % 20.5 - 60.0 % [facility] MCH (RBC) [Entitic mass] 29.8 pg 26. 7 - 34.0 pg [facility] MCHC (RBC) [Mass/Vol] 33.4 g/dL 29.9 - 35.2 g/dL [facility] MCV (RBC) [Entitic vol] 89 fL 81.0 - 99.0 fL [facility] MONOCYTES ABSOLUTE AUTO 0.6 N [facility] Monocytes/100 WBC (Bld) 7.4 % 1.7 - 12.0 % [facility] NEUTROPHILS ABSOLUTE AUTO 5.3 [facility] Neutrophils/100 WBC (Bld) 66.5 % 43.0 - 75.0 % [facility] Platelet mean volume (Bld) [Entitic vol] 10.3 fL 9.5 - 13.5 fL [facility]H EO # 0.1 [facility] PLT 228 [facility] RBC 4.2 [facility] WBC 8 [facility] Colposcopyon 10-13-2024 Keyonnamadiha Burleson LPN 10/18/2024 12:19 PM Colposcopy Date/Time: 10/13/2024 3:40 PM Performed by: Abel Alvarez DO Authorized by: Abel Alvarez DO Consent: Patient questions answered: yes Risks and benefits of the procedure and its alternatives discussed: yes Procedural risks discussed: Bleeding and infection Consent obtained: Written Consent given by: Patient Indication: Other indication(s): clinical abnormality Pre-procedure: Prep solution(s): acetic acid Procedure: Colposcopy details: Colposcopy: Patient is doing well and has no complaints. Pap results have been reviewed with the patient in great detail and patient voiced understanding. Patient presents today for a Colposcopy with ECC and 10 oclock biopsy. Patient was placed in dorsal lithotomy position with feet in stirrups, a sterile speculum was placed into the vagina and the cervix was visualized. Cervix was cleansed with vinegar. Postprocedural instructions given. All if patients questions answered and she expressed understanding. Advised to call in interim with questions or concerns. Follow Up: Patient is to return in 6 months for Repeat Pap. Cervix visibility: fully visualized Lesion visualized: fully visualized [facility] HCG ( test) Ql (U)o n 10-13-2024 Interpretation and review of laboratory results Normal [facility] Preg Test, Ur Negative Negative [facility] Silas 10-13-2024 L -- Specimen: [id number] Received: 10/14/24 Status: AGNES Leyvaelaine Num: [id number] Spec Type: Surgical Subm Dr: Abel Alvarez Tissues: A Endocervix - Curettings (ECC) B Cervical Biopsy/Leep Biopsy (CERVICAL BX) Procedures: HE/Benjamin, Gross/Micro L4/2 -- Age/ Patient Sex Location Account Attending Physician -- Barb Estrada 34/F LABELL [id number] Abel Alvarez -- SPEC NUM: [id number] RECD: 10/14/24 STATUS: AGNES MORENO NUM: [id number] LASHELL: 10/13/24-[address]: Abel Alvarez ENTERED: 10/14/[address] [facility] [address]: Laurie,Lab SPEC TYPE: Surgical DEPT: JEANE SILVERIO ENTERED BY: [id number] RECV BY: [id number] ORDERED: HE/4, Gross/Micro L4/2 ORDERED: HE/4, Gross/Micro L4/2 Pathological Diagnosis A. Endocervix, curettings: - Fragments of benign endocervical mucosa with mucoid material. - No ectocervical tissue present. B. Cervix, 10:00, biopsy: - Scant benign squamous epithelium. - No endocervical mucosa present. - No evidence of dysplasia or malignancy identified. - See Comment. Comment: This specimen is suboptimal for evaluation due to the absence of transformation zone component/endocerv ical mucosa. Recommend repeat cervical biopsy as clinically indicated. Clinical Information Atypical squamous cells of undetermined significance, human papilloma virus positive -- Specimen: [id number] Received: 10/14/24 Status: AGNES Josh Num: [id number] Spec Type: Surgical Subm Dr: Abel Alvarez Tissues: A Endocervix - Curettings (ECC) B Cervical Biopsy/Leep Biopsy (CERVICAL BX) Procedures: HE/4, Gross/Micro L4/2 -- Patient: Barb Estrada [id number] (Continued) -- Specimen: [id number] Received: 10/14/24 (Continued) Signed (signatu re on file) Hung Rincon MD 10/15/24 1205 -- Specimen: [id number] Received: 10/14/24 Status: AGNES Moreno Num: [id number] Spec Type: Surgical Subm Dr: Abel Alvraez Tissues: A Endocervix - Curettings (ECC) B Cervical Biopsy/Leep Biopsy (CERVICAL BX) Procedures: Felicia TORRES/Amanda L4/2 -- Patient: Barb Estrada [id number] (Continued) -- Specimen: [id number] Received: 10/14/24 (Continued) Gross Description Part A is received in formalin labeled with the patients name, date of , and ECC is a pale pedro, mucoid material, admixed with pedro-pink feathery tissue fragments, 0.8 x 0.5 x 0.1 cm in aggregate. The specimen is filtered and entirely submitted in a single cassette. (1, ns, [id number] A) Part B is received in formalin labeled with the patients name, date of , and Cervix, 10:00 BX is a pale pedro, feathery, 0.3 cm in greatest dimension tissue bit. The specimen is entirely submitted in a single cassette. (1, ns, [id number] B) Microscopic Description A B: Microscopic examination is performed. CPT Codes 35091 x2 -- -- Specimen: [id number] Received: 10/14/24 Status: AGNES Moreno Num: [id number] Spec Type: Surgical Subm Dr: Abel Alvarez Tissues: A Endocervix - Curettings (ECC) B Cervical Biopsy/Leep Biopsy (CERVICAL BX) Procedures: HE/4, Gross/Micro L4/2 -- Patient: Barb Estrada [id number] (Continued) -- Signed (signatu re on file) Hung Rincon MD 10/15/24 1205 Normal [facility] IGP,APTIMA HPV,AGE GDLNon AGE GDLN ACOG TESTING Note . [facility] Comment on above: TESTS RESULT FLAG UN ITS REF RANGE LAB Clinician Provided Cytology Information Source.............Cervix;Endocervix No. of containers..01 ThinPrep Vial Age Algo ACOG Shanita... 31 FLAG LEGEND: L-Low Normal,H-High Normal,LL-Alert Low,HH-Alert High <-Panic Low,>-Panic High,A-Abnormal,AA-Critical Abnormal Performed at: 01 =[address] [place] [address] Loida Olivares MD, HPV APTIMA Positive Abnormal Negative [facility] Comment on above: This nucleic acid am plification test detects fourteen high- risk HPV types (16,18,31,33,35,39,45,51,52,56,58,59,66,68) without differentiation. Performed at: =[address], [place] [id number] Medical Biller Coder: Loida Olivares MD, Phone: [phone] Performed at: [address] [id number] Medical Biller Coder: Loida Olivares MD, Phone: [phone] IGP, APTIMA HPV, RFX 16/18,45 Note Abnormal . [facility] Comment on above: TESTS RESULT FLAG UN ITS REF RANGE LAB DIAGNOSIS: [A] 02 EPITHELIAL CELL ABNORMALITY. ATYPICAL SQUAMOUS CELLS OF UNDETERMINED SIGNIFICANCE (ASC-US). Specimen adequacy: 02 Satisfactory for evaluation. Endocervical and/or squamous metaplastic cells (endocervical component) are present. Performed by: 02 Sarahy Burnham, Women[facility] Nurse Practitioner (ASC) Electronically si... 02 Holly Moya MD, Pathologist . 02 Pathologist ICD10: 02 R87.610 Note: Note 02 The Pap smear is a screening test designed to aid in the detection of premalignant and malignant conditions of the uterine cervix. It is not a diagnostic procedure and should not be used as the sole means of detecting cervical cancer. Both false-positive and false-negative reports do occur. Test Methodology: Note 02 This liquid based ThinPrep(R) pap test was screened with the use of an image guided system. HPV Genotype Reflex Note 02 Criteria not met, HPV Genotype not performed. FLAG LEGEND: L-Low Normal,H-High Normal,LL-Alert Low,HH-Alert High <-Panic Low,>-Panic High,A-Abnormal,AA-Critical Abnormal Performed at: [address] [facility] [address] Loida Olivares MD, Interpretation and review of laboratory results Abnormal [employer] BRUSH-SPATULA CERVIX ENDOCERVIX [facility] [employer] US SONOHYSTEROGRAMon 025 Source Facility: [facility] Interpreted by: Summer Jacinto Indication ======== Fertility [...] transvaginal ultrasound examination. View: Sufficient Radiology, Radiologist, MD - 09/10/2024 Source Facility: [facility] Interpreted by: Summer Jacinto Indication ======== Fertility [...] Transabdominal and transvaginal ultrasound examination. View: Sufficient [facility] US SONOHYSTEROGRAMOrdered By : Radiologist Radiology on 09-10-2024 [facility] Work Phone: No Panel Informationon 08-26 SURG1 [facility] SURG1 SEE COMMENT [facility] SURGICAL PATHOLOGY EXAMon SURG Pathology report.total [facility] SURG Surgical Pathology Case: [id number] [facility] SURG1 Authorizing Provider: Melani Zaman MD Collected: 08/21/2024 1350 [facility] SURG1 Ordering Location: [facility] [place] Received: 08/21/2024 1432 [facility] SURG1 Pathologist: Flavio Melara MD [facility] SURG Specimen: FIBROID MYOMECTOMY, UTERINE FIBROID [facility] SURG1 Path report.final diagnosis [facility] SURG1 A. Uterine fibroid, myomectomy: [facility] SURG1 --Secretory pattern endometrium [facility] SURG1 --Fragments of smooth muscle with ischemic changes and hyalinization [facility] SURG1 Attending: Bhavani Blackwood S. Avril, R. Redline. [facility] SURG1 [facility] SURG1 Laboratory comment [facility] SURG1 By the signature on this report, the individual or group listed as making the Final Interpretation/Joann gnosis certifies that they have reviewed this case. [facility] SURG1 Path report.relevant Hx [facility] SURG1 Pre-op diagnosis: [facility] SURG1 Submucous uterine fibroid [D25.0] [facility] SURG1 Path report.gross observation [facility] SURG1 A: Received in formalin in 3 mesh socks, labeled with the patient's name and hospital number and UTERINE FIBROID , are multiple friable trujillo-white to yellow fragments of tissue, and minimal clotted blood and mucus, aggregating to 5.0 x 4.0 x 1.2 cm and weighing 8.30 grams. Areas of calcification, necrosis, or softening, are not identified. Wool Fleece Sorter sections are submitted in 2 cassettes. [facility] SURG1 MAD [facility] Pre-op diagnosis: Submucous uterine fibroid [D25.0] Original Ordering Provider[facility] ( test) Ql (U)o n 08-21-2024 Interpretation and review of laboratory results Normal [facility] Work Phone: Preg Test, Ur Negative Negative [facility] Work Phone: [facility] Work Phone: Surgical pathology studyon 0 08-21-2024 Surgical pathology study Pathology report.total SEE COMMENT Surgical Pathology Case: [id number] Authorizing Provider: Melani Zaman MD Collected: 08/21/2024 1350 Ordering Location: [facility] [place] OR Received: 08/21/2024 1432 Pathologist: Flavio Melara MD Specimen: FIBROID MYOMECTOMY, UTERINE FIBROID Path report.final diagnosis SEE COMMENT A. Uterine fibroid, myomectomy: --Secretory pattern endometrium --Fragments of smooth muscle with ischemic changes and hyalinization This case has been reviewed at the [facility] consensus conference via Zoom on 08/26/24. Attending: Bhavani Blackwood, Ambika Avila. Laboratory comment By the signature on this [...] calcification, necrosis, or softening, are not identified. Wool Fleece Sorter sections are submitted in 2 cassettes. [facility] Comment on above: Order Comment: Pre-o p diagnosis: Submucous uterine fibroid [D25.0] Basic metabolic 2000 panelon 08-18-2024 Anion gap [Moles/Vol] 12 mmol/L Normal 10-20 [facility] Comment on above: Performed By: #### 2 4321-2 #### KWESIIBROGELIO LESTER ([id number]) [facility] ([facility]) [address] [place] [address] 43060 Calcium [Mass/Vol] 9.2 mg/dL Normal 8.6-10.3 [facility] Comment on above: Performed By: #### 2 4321-2 #### KWESIIBROGELIO LESTER ([id number]) [facility] ([facility]) [address] [place] [address] 70842 Chloride [Moles/Vol] 106 mmol/L Normal 98-107 [facility] Comment on above: Performed By: #### 2 4321-2 #### KWESIIBELIFERNY LESTER ([id number]) [facility] ([facility]) [address] [place] [address] 39719 CO2 [Moles/Vol] 23 mmol/L Normal 21-32 [facility] Comment on above: Performed By: #### 2 4321-2 #### KWESIIBELIFERNY LESTER ([id number]) [facility] ([facility]) [address] [place] [address] 26007 Creatinine [Mass/Vol] 0.72 mg/dL Normal 0.50-1.05 [facility] Comment on above: Performed By: #### 2 4321-2 #### ANAIBELIFERNY ROB MCKAYLA ([id number]) [facility] ([facility]) [address] [place] [address] 40323 GFR/1.73 sq M.predicted MDRD (S/P/Bld) [Vol rate/Area] mL/min/{1.73_m2} Normal >[address] [facility] Comment on above: Result Comment: Calc ulations of estimated GFR are performed using the 2020 CKD-EPI Study Refit equation without the race variable for the IDMS-Traceable creatinine methods. https://jasn.asnjournals.org/content/early//ASN.372 5061843 Performed By: #### 2 4321-2 #### KIMBERLY LESTER ([id number]) [facility] ([facility]) [address] [place] [address] 77367 Glucose [Mass/Vol] 91 mg/dL Normal 74-99 [facility] Comment on above: Performed By: #### 2 4321-2 #### KIMBERLY LESTER ([id number]) [facility] ([facility]) [address] [place] [address] 77803 Potassium [Moles/Vol] 4.2 mmol/L Normal 3.5-5.3 [facility] Comment on above: Performed By: #### 2 4321-2 #### KIMBERLY LESTER ([id number]) [facility] ([facility]) [address] [place] [address] 22837 Sodium [Moles/Vol] 137 mmol/L Normal 136-145 [facility] Comment on above: Performed By: #### 2 4321-2 #### KIMBERLY LESTER ([id number]) [facility] ([facility]) [address] [place] [address] 45578 Urea nitrogen [Mass/Vol] 7 mg/dL Normal 6-[address] [facility] Comment on above: Performed By: #### 2 4321-2 #### KIMBERLY LESTER ([id number]) [facility] ([facility]) [address] [place] [address] 69453 Blood type and Indirect anti body screen panel (Bld)on 08-18-2024 ABO group Nom (Bld) O Normal [facility] Comment on above: Performed By: #### 3 4532-2 #### ROBERT NOEL ([id number]) [facility] ([facility]) [address] [place] [address] [place] Blood group antibody screen Ql Negative [facility] Comment on above: Performed By: #### 3 4532-2 #### ROBERT NOEL ([id number]) [facility] ([facility]) [address] [place] [address] [place] D Ag Ql (Bld) Positive [facility] Comment on above: Performed By: #### 3 4532-2 #### ROBERT NOEL ([id number]) [facility] ([facility]) [address] [place] [address] [place] CBC panel Auto (Bld)on 08-18 Erythrocyte distribution width (RBC) [Ratio] 12.5 % Normal 11.5-14.[address] [facility] Comment on above: Performed By: #### 5 8410-2 #### KIMBERLY LESTER ([id number]) [facility] ([facility]) [address] [place] [address] 98008 Hematocrit (Bld) [Volume fraction] 37.3 % Normal 36.0-46.[address] [facility] Comment on above: Performed By: #### 5 8410-2 #### KIMBERLY LESTER ([id number]) [facility] ([facility]) [address] [place] [address] 69486 Hemoglobin (Bld) [Mass/Vol] 12.1 g/dL Normal 12.0-16.[address] [facility] Comment on above: Performed By: #### 5 8410-2 #### KIMBERLY LESTER ([id number]) [facility] ([facility]) [address] [place] [address] 13198 MCH (RBC) [Entitic mass] 29.3 pg Normal 26.0-34.[address] [facility] Comment on above: Performed By: #### 5 8410-2 #### KIMBERLY LESTER ([id number]) [facility] ([facility]) [address] [place] [address] 69088 MCHC (RBC) [Mass/Vol] 32.4 g/dL Normal 32.0-36.0 [facility] Comment on above: Performed By: #### 5 8410-2 #### KIMBERLY LESTER ([id number]) [facility] ([facility]) [address] [place] [address] 80101 MCV (RBC) [Entitic vol] 90 fL Normal 80-100 U [facility] Comment on above: Performed By: #### 5 8410-2 #### KIMBERLY LESTER ([id number]) [facility] ([facility]) [address] [place] [address] 10970 Nucleated RBC/100 WBC (Bld) [Ratio] 0.0 /100 WBCs Normal 0.0-0.[address] [facility] Comment on above: Performed By: #### 5 8410-2 #### KIMBERLY LESTER ([id number]) [facility] ([facility]) [address] [place] [address] 17619 Platelets (Bld) [#/Vol] 271 x10*3/uL Normal 150-[address] [facility] Comment on above: Performed By: #### 5 8410-2 #### KIMBERLY LESTER ([id number]) [facility] ([facility]) [address] [place] [address] 74980 RBC (Bld) [#/Vol] 4.13 x10*6/uL Normal 4.00-5.20 [facility] Comment on above: Performed By: #### 5 8410-2 #### KIMBERLY LESTER ([id number]) [facility] ([facility]) [address] [place] [address] 53564 WBC (Bld) [#/Vol] 7.9 x10*3/uL Normal 4.4-11.3 [facility] Comment on above: Performed By: #### 5 8410-2 #### KIMBERLY LESTER ([id number]) [facility] ([facility]) [address] [place] [address] 23620 HCG ( test) Ql (U)o n 07-24-2024 Preg Test, Ur Negative Negative [facility] Work Phone: No Panel Informationon 07-24 [facility] Work Phone: Sonohysterogramon 07-24-2024 RETA [place] 07/24/2024 [...] Zaman will place orders for surgery and sock examiner will reach back with date and details. [...] and transvaginal ultrasound examination. View: Sufficient Normal [facility] Radiology Study observation (narrative) [facility] HCG ( test) Ql (U)o n 06-26-2024 Interpretation and review of laboratory results Abnormal [facility] Work Phone: Preg Test, Ur Negative Abnormal Negative [facility] Work Phone: [facility] Work Phone: Surgical pathology studyon 1 08-27-2023 Surgical pathology study Pathology report.total SEE COMMENT Surgical Pathology Case: [id number] Authorizing Provider: Melani Zaman MD Collected: 06/26/2024 1043 Ordering Location: [facility] [place] OR Received: 06/26/2024 1300 Pathologist: Chelsey Garland [...] Select slide (A6) was shown at the [facility] consensus conference via Zoom on 07/16/2024 Attending: [...] necrosis, softening, or hemorrhage are not identified. Wool Fleece Sorter sections are submitted in 4 cassettes. In addition, a gauze sac containing multiple white to red soft tissue fragments aggregating to 4 x 2 x 0.3 cm is present. These tissue fragments are entirely submitted in A5 and A6. [facility] Summary of Cassettes: Specimen Label Site A 1-4 Wool Fleece Sorter sections of fibroid A 5-6 Multiple tissue fragments, likely [facility]. [facility] Department of Pathology [address] [place] [address] B. Received in formalin, labeled with the patient???s name and hospital number and Left paratubal cyst is a collapsed translucent cyst 0.7 cm in its collapsed state. The pedicle of the cyst measures 1 x 0.2 x 0.2 cm. No solid areas or excrescences are identified. Cyst wall is 0.1 cm or less in thickness. The tissue fragment is entirely submitted in B1. [facility] Department of Pathology [address] [place] [address] Normal [facility] Comment on above: Order Comment: Pre-o p diagnosis: Intramural, submucous, and subserous leiomyoma of uterus [D25.1, D25.0, D25.2] Blood type and Indirect anti body screen panel (Bld)on 06-25-2024 ABO group Nom (Bld) O Normal [facility] Comment on above: Order Comment: Speci men for compatibility testing requires full first and last name, MRN, , date, time of collection, and violin repairer/coin box collector's signature on tube(s) or it will be rejected. Please collect 1 lavender top-KEDTA OR 1 pink top-KEDTA and sign, date and time with the patient's full first and last name, MRN and . Performed By: #### 3 4532-2 #### ROBERT NOEL ([id number]) [facility] [address] [place] [address] [place] Blood group antibody screen Ql Negative [facility] Comment on above: Order Comment: Speci men for compatibility testing requires full first and last name, MRN, , date, time of collection, and violin repairer/coin box collector's signature on tube(s) or it will be rejected. Please collect 1 lavender top-KEDTA OR 1 pink top-KEDTA and sign, date and time with the patient's full first and last name, MRN and . Performed By: #### 3 4532-2 #### ROBERT NOEL ([id number]) [facility] ([facility]) [address] [place] [address] [place] D Ag Ql (Bld) Positive [facility] Comment on above: Order Comment: Speci men for compatibility testing requires full first and last name, MRN, , date, time of collection, and violin repairer/coin box collector's signature on tube(s) or it will be rejected. Please collect 1 lavender top-KEDTA OR 1 pink top-KEDTA and sign, date and time with the patient's full first and last name, MRN and . Performed By: #### 3 4532-2 #### ROBERT NOEL ([id number]) [facility] [address] [place] [address] [place] CBC W Auto Differential pane l (Bld)on 06-25-2024 Basophils (Bld) [#/Vol] 0.07 x10*3/uL Normal 0.00-0.10 [facility] Comment on above: Performed By: #### 5 7021-8 #### ROBERT NOEL ([id number]) [facility] ([facility] [address] [place] [address] Basophils/100 WBC (Bld) 1.0 % Normal 0.0-2.0 [facility] Comment on above: Performed By: #### 5 7021-8 #### ROBERT NOEL ([id number]) [facility] ([facility] [address] [place] [address] Eosinophils (Bld) [#/Vol] 0.08 x10*3/uL Normal 0.00-0.70 [facility] Comment on above: Performed By: #### 5 7021-8 #### ROBERT NOEL ([id number]) [facility] ([facility] [address] [place] [address] Eosinophils/100 WBC (Bld) 1.1 % Normal 0.0-6.0 [facility] Comment on above: Performed By: #### 5 7021-8 #### ROBERT NOEL ([id number]) [facility] ([facility] [address] [place] [address] Erythrocyte distribution width (RBC) [Ratio] 12.9 % Normal 11.5-14.5 [facility] Comment on above: Performed By: #### 5 7021-8 #### ROBERT NOEL ([id number]) [facility] ([facility]) [address] [place] [phone] Hematocrit (Bld) [Volume fraction] 37.9 % Normal 36.0-46.0 [facility] Comment on above: Performed By: #### 5 7021-8 #### ROBERT NOEL ([id number]) [facility] ([facility] [address] [place] [phone] Hemoglobin (Bld) [Mass/Vol] 12.2 g/dL Normal 12.0-16.0 [facility] Comment on above: Performed By: #### 5 7021-8 #### ROBERT NOEL ([id number]) [facility] ([facility]) [address] [place] [address] Immature granulocytes (Bld) [#/Vol] 0.02 x10*3/uL Normal 0.00-0.70 [facility] Comment on above: Performed By: #### 5 7021-8 #### ROBERT NOEL ([id number]) [facility] ([facility] [address] [place] [phone] Immature granulocytes/100 WBC (Bld) 0.3 % Normal 0.0-0.9 [facility] Comment on above: Result Comment: Tamiko ture Granulocyte Count (IG) includes promyelocytes, myelocytes and metamyelocytes but does not include bands. Percent differential counts (%) should be interpreted in the context of the absolute cell counts (cells/UL). Performed By: #### 5 7021-8 #### ROBERT NOEL ([id number]) [facility] ([facility] [address] [place] [address] Lymphocytes (Bld) [#/Vol] 1.74 x10*3/uL Normal 1.20-4.80 [facility] Comment on above: Performed By: #### 5 7021-8 #### ROBERT NOEL ([id number]) [facility] ([facility]) [address] [place] [address] Lymphocytes/100 WBC (Bld) 24.6 % Normal 13.0-44.0 [facility] Comment on above: Performed By: #### 5 7021-8 #### ROBERT NOEL ([id number]) [facility] ([facility] [address] [place] [phone] MCH (RBC) [Entitic mass] 28.8 pg Normal 26.0-34.0 [facility] Comment on above: Performed By: #### 5 7021-8 #### ROBERT NOEL ([id number]) [facility] ([facility]) [address] [place] [phone] MCHC (RBC) [Mass/Vol] 32.2 g/dL Normal 32.0-36.0 [facility] Comment on above: Performed By: #### 5 7021-8 #### ROBERT NOEL ([id number]) [facility] ([facility]) [address] [place] [address] MCV (RBC) [Entitic vol] 90 fL Normal 80-100 U [facility] Comment on above: Performed By: #### 5 7021-8 #### ROBERT NOEL ([id number]) [facility] ([facility]) [address] [place] [address] Monocytes (Bld) [#/Vol] 0.61 x10*3/uL Normal 0.10-1.00 [facility] Comment on above: Performed By: #### 5 7021-8 #### ROBERT NOEL ([id number]) [facility] ([facility] [address] [place] [phone] Monocytes/100 WBC (Bld) 8.6 % Normal 2.0-10.0 U [facility] Comment on above: Performed By: #### 5 7021-8 #### ROBERT NOEL ([id number]) [facility] ([facility]) [address] [place], [place] [phone] Neutrophils (Bld) [#/Vol] 4.54 x10*3/uL Normal 1.20-7.70 [facility] Comment on above: Result Comment: Perc ent differential counts (%) should be interpreted in the context of the absolute cell counts (cells/uL). Performed By: #### 5 7021-8 #### ROBERT NOEL ([id number]) [facility] ([facility]) [address] [place] [address] Neutrophils/100 WBC (Bld) 64.4 % Normal 40.0-80.0 [facility] Comment on above: Performed By: #### 5 7021-8 #### ROBERT NOEL ([id number]) [facility] ([facility]) [address] [place] [address] Nucleated RBC/100 WBC (Bld) [Ratio] 0.0 /100 WBCs Normal 0.0-0.0 [facility] Comment on above: Performed By: #### 5 7021-8 #### ROBERT NOEL ([id number]) [facility] ([facility] [address] [place] [address] Platelets (Bld) [#/Vol] 319 x10*3/uL Normal 150-450 [facility] Comment on above: Performed By: #### 5 7021-8 #### ROBERT NOEL ([id number]) [facility] ([facility] [address] [place] [address] RBC (Bld) [#/Vol] 4.23 x10*6/uL Normal 4.00-5.20 [facility] Comment on above: Performed By: #### 5 7021-8 #### ROBERT NOEL ([id number]) [facility] ([facility]) [address] [place] [address] WBC (Bld) [#/Vol] 7.1 x10*3/uL Normal 4.4-11.3 [facility] Comment on above: Performed By: #### 5 7021-8 #### ROBERT NOEL ([id number]) [facility] ([facility]) [address] CBC AND DIFFERENTIALon Basophils/100 WBC (Bld) 1 % 0.0 - 2.0 % [facility] Eosinophils/100 WBC (Bld) 1.1 % 0.0 - 6.0 % [facility] Erythrocyte distribution width (RBC) [Ratio] 12.9 % 11.5 - 14.5 % [facility] Hematocrit (Bld) [Volume fraction] 37.9 % 36.0 - 46.0 % [facility] Hemoglobin (Bld) [Mass/Vol] 12.2 g/dL 12.0 - 16.0 g/dL [facility] Lymphocytes/100 WBC (Bld) 24.6 % 13.0 - 44.0 % [facility] MCH (RBC) [Entitic mass] 28.8 pg 26. 0 - 34.0 pg [facility] MCHC (RBC) [Mass/Vol] 32.2 g/dL 32.0 - 36.0 g/dL [facility] MCV (RBC) [Entitic vol] 90 fL 80 - [facility] Monocytes/100 WBC (Bld) 8.6 % 2.0 - 10.0 % [facility] Neutrophils/100 WBC (Bld) 64.4 % 40.0 - 80.0 % [facility] % AUTOMATED IMMATURE GRAN 0.3 % 0.0 - 0.9 % [facility] Comment on above: Immature Granulocyte Count (IG) includes promyelocytes, myelocytes and metamyelocytes but does not include bands. Percent differential counts (%) should be interpreted in the context of the absolute cell counts (cells/UL). [facility] AUTOMATED IMMATURE GRAN 0.02 [facility] BASOPHIL 0.07 [facility] EOSINOPHIL 0.08 [facility] LYMPHOCYTE 1.74 [facility] MONOCYTE 0.61 [facility] NEUTROPHIL 4.54 [facility] Comment on above: Percent differential counts (%) should be interpreted in the context of the absolute cell counts (cells/uL). NUCLEATED RBC 0 [facility] PLT 319 [facility] RBC 4.23 [facility] WBC 7.1 [facility] Original Ordering Provider: MICHELLE WHITAKER [facility] MR PELVIS W AND WO IV CONTRDestiney Blair 06-03-2024 MR PELVIS W AND WO IV CONTRAST Interpreted By: Nicola Multani, STUDY: MR PELVIS W AND WO IV CONTRAST; 06/03/2024 1:37 pm INDICATION: Signs/Symptoms:ARBORIST diagnosis and treatment planning. ,D25.9 Leiomyoma of uterus, unspecified COMPARISON: None. ACCESSION NUMBER(S): [id number] ORDERING CLINICIAN: MELANI ZAMAN TECHNIQUE: Multiplanar MRI [...] Nicola Multani 06/03/2024 2:50 PM Dictation workstation: [employer] [facility] MR Pelvis WO and W contrast Aria 06-03-2024 1. Leiomyomatous uterus with leiomyomas ranging from subserosal to intracavitary. 2. PCOS ovary morphology. MACRO: None Signed by: Nicola Multani 06/03/2024 2:50 PM Dictation workstation: [id number] Interpreted By: Nicola Multani, STUDY: MR PELVIS W AND WO IV CONTRAST; 06/03/2024 1:37 pm INDICATION: Signs/Symptoms:ARBORIST diagnosis and treatment planning. ,D25.9 Leiomyoma of uterus, unspecified COMPARISON: None. ACCESSION NUMBER(S): [id number] ORDERING CLINICIAN: MELANI ZAMAN TECHNIQUE: Multiplanar MRI [...] about 5 mm sagittal T2 haste image 4/18.. The endometrium has normal thickness estimated at 3 mm image 4/18. There is distortion of the endometrial widening due to adjacent leiomyomas.. Multiple marginated enhancing observations related to the uterus compatible with leiomyomatous uterus ranging from subserosal to intracavitary. Findings include a subserosal dominant mass measuring about 6 cm right anterior uterine body axial T2 haste image 3/18. There is a dominant left-sided fundal region intramural observation estimated about 4 cm image 3/12. There are 2 adjacent intracavitary observations including fundal region observation measuring about 15 mm sagittal image 4/16 and uterine body intracavitary observation measuring about 3 cm image 4/18. The vagina and vulva are unremarkable. OVARIES/ADNEXA: The ovaries demonstrate PCOS morphology. The right ovary measures about 4.8 x 2.7 x 4.0 cm coronal T2 image 2/16. The left ovary measures about 3.2 x 2.8 x 2.4 cm image 2/9. No suspicious adnexal mass PERITONEAL FLUID: Trace, [...] WO IV CONTRAST; 06/03/2024 1:37 pm INDICATION: Signs/Symptoms:ARBORIST diagnosis and treatment planning. ,D25.9 Leiomyoma of uterus, unspecified COMPARISON: None. ACCESSION NUMBER(S): [id number] ORDERING CLINICIAN: MELANI ZAMAN TECHNIQUE: Multiplanar MRI [...] about 5 mm sagittal T2 haste image 4/18.. The endometrium has normal thickness estimated at 3 mm image 4/18. There is distortion of the endometrial widening due to adjacent leiomyomas.. Multiple marginated enhancing observations related to the uterus compatible with leiomyomatous uterus ranging from subserosal to intracavitary. Findings include a subserosal dominant mass measuring about 6 cm right anterior uterine body axial T2 haste image 3/18. There is a dominant left-sided fundal region intramural observation estimated about 4 cm image 3/12. There are 2 adjacent intracavitary observations including fundal region observation measuring about 15 mm sagittal image 4/16 and uterine body intracavitary observation measuring about 3 cm image 4/18. The vagina and vulva are unremarkable. OVARIES/ADNEXA: [...] Nicola Multani 06/03/2024 2:50 PM Dictation workstation: [id number] [facility] Work Phone: Radiology Study observation (narrative) [facility] Work Phone: MR Pelvis WO and W contrast IVOrdered By: Nicola Multani on 06-03-2024 [facility] Work Phone: Blood type and Indirect anti body screen panel (Bld)on 05-18-2024 ABO group Nom (Bld) O Normal [facility] Comment on above: Performed By: #### 3 4532-2 #### ROBERT BERT ([id number]) [facility] ([facility]) [address] [place] [address] [place] Blood group antibody screen Ql Negative [facility] Comment on above: Performed By: #### 3 4532-2 #### ROBERT NOEL ([id number]) [facility] [address] [place] [address] [place] D Ag Ql (Bld) Positive [facility] Comment on above: Performed By: #### 3 4532-2 #### ROBERT NOEL ([id number]) [facility] [address] [place] [address] [place] CBC panel Auto (Bld)on 05-18 Erythrocyte distribution width (RBC) [Ratio] 12.8 % Normal 11.5-14.5 [facility] [facility] Comment on above: Performed By: #### 5 8410-2 #### ENRIQUE Martinez ([id number]) [facility] ([facility]) [address] [place] [address] 89145 Hematocrit (Bld) [Volume fraction] 37.5 % Normal 36.0-46.0 [facility] Comment on above: Performed By: #### 5 8410-2 #### ENRIQUE Martinez ([id number]) [facility] ([facility]) [address] [place] [address] 83467 Hemoglobin (Bld) [Mass/Vol] 12.1 g/dL Normal 12.0-16.0 [facility] Comment on above: Performed By: #### 5 8410-2 #### ENRIQUE Martinez ([id number]) [facility] ([facility]) [address] [place] [address] 43763 MCH (RBC) [Entitic mass] 29.0 pg Normal 26.0-34.0 [facility] Comment on above: Performed By: #### 5 8410-2 #### ENRIQUE Martinez ([id number]) [facility] ([facility]) [address] [place] [address] 93644 MCHC (RBC) [Mass/Vol] 32.3 g/dL Normal 32.0-36.0 [facility] Comment on above: Performed By: #### 5 8410-2 #### ENRIQUE Martinez ([id number]) [facility] ([facility]) [address] [place] [address] 61247 MCV (RBC) [Entitic vol] 90 fL Normal 80-100 [facility] Comment on above: Performed By: #### 5 8410-2 #### ENRIQUE Martinez ([id number]) [facility] ([facility]) [address] [place] [address] 20537 Nucleated RBC/100 WBC (Bld) [Ratio] 0.0 /100 WBCs Normal 0.0-0.0 [facility] Comment on above: Performed By: #### 5 8410-2 #### ENRIQUE Martinez ([id number]) [facility] ([facility]) [address] [place] [address] 22783 Platelets (Bld) [#/Vol] 275 x10*3/uL Normal 150-450 [facility] Comment on above: Performed By: #### 5 8410-2 #### ENRIQUE Martinez ([id number]) [facility] ([facility]) [address] [place] [address] 13870 RBC (Bld) [#/Vol] 4.17 x10*6/uL Normal 4.00-5.20 [facility] Comment on above: Performed By: #### 5 8410-2 #### ENRIQUE Martinez ([id number]) [facility] ([facility]) [address] [place] [address] 69182 WBC (Bld) [#/Vol] 10.9 x10*3/uL Normal 4.4-11.3 [facility] Comment on above: Performed By: #### 5 8410-2 #### ENRIQUE Martinez ([id number]) [facility] ([facility]) [address] [place] [address] 14149 HbA1c (Bld) [Mass fraction]o n 05-18-2024 Average glucose Estimated from glycated hemoglobin (Bld) [Mass/Vol] 105 mg/dL Normal Not Established [facility] Comment on above: Order Comment: Diagn osis of Diabetes-Adults Non-Diabetic: < or = 5.6% Increased risk for developing diabetes: 5.7-6.4% Diagnostic of diabetes: > or = 6.5% Performed By: #### 4 548-4 #### ENRIQUE Martinez ([id number]) [facility] ([facility]) [address] [place], [place] [id number] Hemoglobin A1c/Hemoglobin.to farideh 05-18-2024 HbA1c (Bld) [Mass fraction] 5.3 % Normal See comment [facility] Comment on above: Order Comment: Diagn osis of Diabetes-Adults Non-Diabetic: < or = 5.6% Increased risk for developing diabetes: 5.7-6.4% Diagnostic of diabetes: > or = 6.5% Performed By: #### 4 548-4 #### ENRIQUE Martinez ([id number]) [facility] ([facility]) [address] [place], [place] [id number] Mullerian inhibiting substan ceon 05-18-2024 Mullerian inhibiting substance [Mass/Vol] 12.400 ng/mL High 0.176-11.705 [facility] Comment on above: Result Comment: INTE RPRETIVE [...] developed and its performance characteristics determined by [facility]. It has not been cleared or approved by the [place] Food and Drug Administration. This test was performed in a CLIA certified laboratory and is intended for clinical purposes. Performed By: [facility] [employer] [address] [place] [address] [employer] Program Technician: Edward Cruz MD, PhD CLIA Number: [id number] Performed By: #### 3 8476-8 #### [facility] ([id number]) [address] [place], [place] [id number] ALL CBC WITH AUTO DIFFon BASOPHILS ABSOLUTE AUTO 0.1 N [facility] Basophils/100 WBC (Bld) 1.3 % 0.2 - 2.0 % [facility] Eosinophils/100 WBC (Bld) 2.5 % 0.9 - 7.0 % [facility] Erythrocyte distribution width (RBC) [Ratio] 12.7 % 11.0 - 15.0 % [facility] Hematocrit (Bld) [Volume fraction] 35.8 % Low 36.0 - 48.0 % [facility] Hemoglobin (Bld) [Mass/Vol] 11.5 g/dL Low 12.0 - 16.0 g/dL [facility] IMMATURE GRANULOCYTES ABS AUTO 0.01 [facility] Immature granulocytes/100 WBC (Bld) 0.1 % 0.0 - 0.5 % [facility] Interpretation and review of laboratory results Abnormal [facility] LYMPHOCYTES ABSOLUTE AUTO 2.4 [facility] Lymphocytes/100 WBC (Bld) 29.8 % 20.5 - 60.0 % [facility] MCH (RBC) [Entitic mass] 29.0 pg 26. 7 - 34.0 pg [facility] MCHC (RBC) [Mass/Vol] 32.1 g/dL 29.9 - 35.2 g/dL [facility] MCV (RBC) [Entitic vol] 90.4 fL 81.0 - 99.0 fL [facility] MONOCY[facility] ABSOLUTE AUTO 0.7 [facility] Monocytes/100 WBC (Bld) 8.3 % 1.7 - 12.0 % [facility] NEUTROPHILS ABSOLUTE AUTO 4.6 [facility] Neutrophils/100 WBC (Bld) 58.0 % 43.0 - 75.0 % [facility] Platelet mean volume (Bld) [Entitic vol] 11.4 fL 9.5 - 13.5 fL [facility] EO # 0.2 [facility] PLT [address] [facility] RBC 3.96 Low [facility] WBC 7.9 [facility] Silas 01-24-2024 L Specimen: [id number] Received: 01/27/24 Status: AGNES Moreno Num: [id number] Spec Type: Surgical Subm Dr: Abel Alvarez Tissues: A Endometrium - Curettings (EMC) Procedures: HE/2, Gross/Micro L4 Age/ Patient Sex Location Account Attending Physician Barb Estrada 33/F [place] [id number] Abel Alvarez SPEC NUM: [id number] RECD: 01/27/24 STATUS: AGNES MORENO NUM: [id number] LASHELL: 01/24/[address]: Abel Alvarez ENTERED: 01/27/[address] [facility] [address]: Juliette Sullivan SPEC TYPE: Surgical DEPT: JEANE SILVERIO ORDERED: [...] performed supporting the above interpretation -- Specimen: [id number] Received: 01/27/24 Status: AGNES Moreno Num: [id number] Spec Type: Surgical Subm Dr: Abel Alvarez Tissues: A Endometrium - Curettings (EMC) Procedures: CARROLLFelicia Johnson/Amanda L4 -- Patient: Barb Estrada [id number] (Continued) -- Specimen: [id number] Received: 01/27/24 (Continued) Signed (signatu re on file) Ani Sarah MD 01/28/24 1607 -- Specimen: [id number] Received: 01/27/24 Status: AGNES Moreno Num: [id number] Spec Type: Surgical Subm Dr: Abel Rubio: A Endometrium - Curettings (EMC) Procedures: CARROLLFelicia Johnson/Amanda L4 -- Patient: Barb Estrada [id number] (Continued) -- Specimen: [id number] Received: 01/27/24 (Continued) CPT Codes 29293 -- -- Specimen: [id number] Received: 01/27/24 Status: AGNES Moreno Num: [id number] Spec Type: Surgical Subm Dr: Abel Alvarez Tissues: A Endometrium - Curettings (EMC) Procedures: HE/2, Gross/Micro L4 -- Patient: Barb Estrada [id number] (Continued) -- Signed (signatu re on file) Ani Sarah MD 01/28/24 1607 [facility] 11-12-2023 L Specimen: [id number] Received: 11/13/23 Status: AGNES Moreno Num: [id number] Spec Type: Surgical Subm Dr: Abel Alvarez Tissues: A Endometrium - Biopsy (EMB) Procedures: HE/2, Gross/Micro L4 Age/ Patient Sex Location Account Attending Physician Barb Estrada 33/F [place] [id number] Abel Alvarez SPEC NUM: [id number] RECD: 11/13/23 STATUS: AGNES JOSH NUM: [id number] LASHELL: 11/12/23- SUBM DR: Abel Alvarez ENTERED: 11/13/[address] [facility] [address]: Laurie,Lab SPEC TYPE: Surgical [...] in A1. Clinical history: Menorrhagia CPT Codes 07926 -- -- Specimen: [id number] Received: 11/13/23 Status: AGNES Moreno Num: [id number] Spec Type: Surgical Subm Dr: Abel Alvarez Tissues: A Endometrium - Biopsy (EMB) Procedures: HE/2, Gross/Micro L4 -- Patient: Barb Estrada [id number] (Continued) -- Signed (signatu re on file) Jazmin Andrews MD 11/14/23 1547 Normal [facility] Quick Strepon 06-24-2023 S. pyogenes Org specific cx Ql (Throat) Negative [facility] Other [facility] Other COVID/FLU/RSV RT-PCRon 06-11 SARS-CoV-2 (COVID-19) RNA NATALIIA+probe Ql (Unsp spec) Negative [facility] [employer] Other COVID/FLU/RSV RT-PCR Negative [facility] [employer] Other CHLAMYDIA/GONOCOCCUS NATALIIA (SW AB/URINE/PAPon 08-03-2022 Chlamydia trachomatis, NATALIIA Negative Normal Negative [facility] Comment on above: Performed By: #### C T/NGNA #### [facility] [address] [place] [address] Dr. Anahy Sarah Neisseria gonorrhoeae, NATALIIA Negative Normal Negative [facility] Comment on above: Performed By: #### C T/NGNA #### [facility] [address] [place] [address] Dr. Anahy Sarah VAGINITIS/VAGINOSIS DNA PROB Omar 08-02-2022 Radha species Positive Abnormal Negative [facility] Comment on above: Performed By: #### V AGINT #### [facility] [address] [place] [address] Dr. Anahy Sarah Gardnerella vaginalis Negative Normal Negative [facility] Comment on above: Performed By: #### V AGINT #### [facility] [address] [place] [address] Dr. Anahy Sarah Trichomonas vaginalis Negative Normal Negative [facility] Comment on above: Performed By: #### V AGINT #### [facility] [address] [place] [address] Dr. Anahy Sarah CBC AUTO DIFFon 04-12-2022 BASO # 0.1 103/ul Normal 0.0-0.1 [facility] Comment on above: Performed By: #### C BC #### [facility] [address] [place] [address] Dr. Anahy Sarah Basophils/100 WBC (Bld) 0.9 % Normal 0.2-2.0 [facility] Comment on above: Performed By: #### C BC #### [facility] [address] [place] [address] Dr. Anahy Sarah EO # 0.1 103/ul Normal 0.0-0.7 [facility] Comment on above: Performed By: #### C BC #### [facility] [address] [place] [address] Dr. Anahy Sarah Eosinophils/100 WBC (Bld) 1.3 % Normal 0.9-7.0 [facility] Comment on above: Performed By: #### C BC #### [facility] [address] [place] [address] Dr. Anahy Sarah Erythrocyte distribution width (RBC) [Ratio] 12.6 % Normal 11.0-15.0 [facility] Comment on above: Performed By: #### C BC #### [facility] [address] [place] [address] Dr. Anahy Sarah Hematocrit (Bld) [Volume fraction] 35.5 % Critically low 36.0-48.0 [facility] Comment on above: Performed By: #### C BC #### [facility] [address] [place] [address] Dr. Anahy Sarah Hemoglobin (Bld) [Mass/Vol] 11.5 g/dL Critically low 12.0-16.0 [facility] Comment on above: Performed By: #### C BC #### [facility] [address] [place] [address] Dr. Anahy Sarah IG # 0.02 10e3/ul Normal 0.00-0.03 [facility] Comment on above: Performed By: #### C BC #### [facility] [address] [place] [address] Dr. Anahy Sarah IG % 0.2 % Normal 0.0-0.5 [facility] Comment on above: Performed By: #### C BC #### [facility] [address] [place] [address] Dr. Anahy Sarah LYMPH # 2.5 103/ul Normal 1.2-3.8 [facility] Comment on above: Performed By: #### C BC #### [facility] [address] [place] [address] Dr. Anahy Sarah Lymphocytes/100 WBC (Bld) 26.3 % Normal 20.5-60.0 [facility] Comment on above: Performed By: #### C BC #### [facility] [address] [place] [address] Dr. Anahy Sarah MANUAL DIFF REQ NO Normal [facility] Comment on above: Performed By: #### C BC #### [facility] [address] [place] [address] Dr. Anahy Sarah MCH (RBC) [Entitic mass] 28.8 pg Normal 26.7-34.0 [facility] Comment on above: Performed By: #### C BC #### [facility] [address] [place] [address] Dr. Anahy Sarah MCHC (RBC) [Mass/Vol] 32.4 g/dL Normal 29.9-35.2 [facility] Comment on above: Performed By: #### C BC #### [facility] [address] [place] [address] Dr. Anahy Sarah MCV (RBC) [Entitic vol] 88.8 fL Normal 81.0-99.0 [facility] Comment on above: Performed By: #### C BC #### [facility] [address] [place] [address] Dr. Anahy Sarah MONO # 0.7 103/ul Normal 0.3-0.8 [facility] Comment on above: Performed By: #### C BC #### [facility] [address] [place] [address] Dr. Anahy Sarah Monocytes/100 WBC (Bld) 7.1 % Normal 1.7-12.0 [facility] Comment on above: Performed By: #### C BC #### [facility] [address] [place] [address] Dr. Anahy Sarah NEUT # 6.0 103/ul Normal 1.4-6.5 [facility] Comment on above: Performed By: #### C BC #### [facility] [address] [place] [address] Dr. Anahy Sarah Neutrophils/100 WBC (Bld) 64.2 % Normal 43.0-75.0 [facility] Comment on above: Performed By: #### C BC #### [facility] [address] [place] [address] Dr. Anahy Sarah Platelet mean volume (Bld) [Entitic vol] 10.1 fL Normal 9.5-13.5 [facility] Comment on above: Performed By: #### C BC #### [facility] [address] [address] [address] Anahy aSrah PLT 287 103/ul Normal 150-450 [facility] Comment on above: Performed By: #### C BC #### [facility] [address] [place] [address] Dr. Anahy Sarah RBC 4.00 106/ul Critically low 4.20-5.40 [facility] Comment on above: Performed By: #### C BC #### [facility] [address] [place] [address] Dr. Anahy Sarah WBC 9.4 103/ul Normal 4.0-11.0 [facility] Comment on above: Performed By: #### C BC #### [facility] [address] [place] [address] Dr. Anahy Sarah GLYCOHEMOGLOBIN A1Con 2021 ADA RECOMMENDATION SEE BELOW Normal [facility] Comment on above: Result Comment: ADA RECOMMENDED LIMIT 4.0 - 6.0 ADA THERAPEUTIC TARGET < 7.0 ACTION SUGGESTED > 7.0 Performed By: #### A 1C #### [facility] [address] [place] [address] Dr. Anahy Sarah Glucose [Mass/Vol] 111 mg/dL Normal [facility] Comment on above: Performed By: #### A 1C #### [facility] [address] [place] [address] Dr. Anahy Sarah HbA1c (Bld) [Mass fraction] 5.5 % Normal 4.5-6.2 [facility] Comment on above: Performed By: #### A 1C #### [facility] [address] [place] [address] Dr. Anahy Sarah LIPID PROFILEon 04-12-2022 CHOL-HDL RATIO NORM SEE BELOW Normal [facility] Comment on above: Result Comment: 3.3 - 4.4 LOW RISK 4.4 - 7.1 AVERAGE RISK 7.1 - 11.0 MODERATE RISK >11.0 HIGH RISK Performed By: #### C MP, LIPID #### [facility] [address] [address] [address] Anahy Sarah Cholesterol [Mass/Vol] 168 mg/dL Normal <=200 [facility] Comment on above: Performed By: #### C MP, LIPID #### [facility] [address] [address] [address] Anahy Sarah Cholesterol in HDL [Mass/Vol] 47 mg/dL Normal 40-60 [facility] Comment on above: Performed By: #### C MP, LIPID #### [facility] [address] [address] [address] Anahy Sarah Cholesterol in LDL [Mass/Vol] 81.8 mg/dL Normal [facility] Comment on above: Performed By: #### C MP, LIPID #### [facility] [address] [address] [address] Anahy Sarah Cholesterol.total/Choles terol in HDL [Mass ratio] 3.6 {ratio} Normal [facility] Comment on above: Performed By: #### C MP, LIPID #### [facility] [address] [address] [address] Anahy Sarah HDL NORMAL > or = 60 mg/dl - LOW CARDIOVASCULAR RISK <40 mg/dl - HIGH CARDIOVASCULAR RISK Normal [facility] Comment on above: Performed By: #### C MP, LIPID #### [facility] [address] [address] [address] Anahy Sarah LDL CALC NORMAL SEE BELOW Normal [facility] Comment on above: Result Comment: <100 mg/dl OPTIMAL 100 - 129 mg/dl NEAR OR ABOVE OPTIMAL 130 - 159 mg/dl BORDERLINE HIGH 160 - 189 mg/dl HIGH >190 mg/dl VERY HIGH Performed By: #### C MP, LIPID #### [facility] [address] [place] [address] Dr. Anahy Sarah Triglyceride [Mass/Vol] 196 mg/dL Critically high <=150 [facility] Comment on above: Performed By: #### C MP, LIPID #### [facility] [address] [place] [address] Dr. Anahy Sarah VLDL CALC 39.2 mg/dL Normal [facility] Comment on above: Performed By: #### C MP, LIPID #### [facility] [address] [address] [address] Anahy Sarah PROF 14(COMP METB)on 022 Albumin [Mass/Vol] 3.5 g/dL Normal 3.4-5.0 [facility] Comment on above: Performed By: #### C MP, LIPID #### [facility] [address] [place] [address] Dr. Anahy Sarah Albumin/Globulin [Mass ratio] 0.9 {ratio} Normal [facility] Comment on above: Performed By: #### C MP, LIPID #### [facility] [address] [place] [address] Dr. Anahy Sarah ALP [Catalytic activity/Vol] 54 U/L Normal 46-116 [facility] Comment on above: Performed By: #### C MP, LIPID #### [facility] [address] [place] [address] Dr. Anahy Sarah ALT [Catalytic activity/Vol] 21 U/L Normal 14-59 [facility] Comment on above: Performed By: #### C MP, LIPID #### [facility] [address] [place] [address] Dr. Anahy Sarah Anion gap [Moles/Vol] 13.3 mmol/L Normal [facility] Comment on above: Performed By: #### C MP, LIPID #### [facility] [address] [place] [address] Dr. Anahy Sarah AST [Catalytic activity/Vol] 14 U/L Critically low 15-37 [facility] Comment on above: Performed By: #### C MP, LIPID #### [facility] [address] [place] [address] Dr. Anahy Sarah Bilirubin [Mass/Vol] 0.4 mg/dL Normal 0.2-1.0 [facility] Comment on above: Performed By: #### C MP, LIPID #### [facility] [address] [place] [address] Dr. Anahy Sarah Calcium [Mass/Vol] 8.5 mg/dL Normal 8.5-10.1 [facility] Comment on above: Performed By: #### C MP, LIPID #### [facility] [address] [place] [address] Dr. Anahy Sarah Chloride [Moles/Vol] 105 mmol/L Normal 98-107 [facility] Comment on above: Performed By: #### C MP, LIPID #### [facility] [address] [place] [address] Dr. Anahy Sarah CO2 [Moles/Vol] 23.4 mmol/L Normal 21.0-32.0 [facility] Comment on above: Performed By: #### C MP, LIPID #### [facility] [address] [place] [address] Dr. Anahy Sarah Creatinine [Mass/Vol] 0.74 mg/dL Normal 0.55-1.02 [facility] Comment on above: Performed By: #### C MP, LIPID #### [facility] [address] [place] [address] Dr. Anahy Sarah EGFR-AF VINCENTIAN >60 Normal >=60 [facility] Comment on above: Performed By: #### C MP, LIPID #### [facility] [address] [place] [address] Dr. Anahy Sarah EGFR-NON AF VINCENTIAN >60 Normal >=60 [facility] Comment on above: Performed By: #### C MP, LIPID #### [facility] [address] [place] [address] Dr. Anahy Sarah Globulin (S) [Mass/Vol] 3.7 g/dL Normal [facility] Comment on above: Performed By: #### C MP, LIPID #### [facility] [address] [place] [address] Dr. Anahy Sarah Glucose [Mass/Vol] 96 mg/dL Normal 74-106 [facility] Comment on above: Performed By: #### C MP, LIPID #### [facility] [address] [place] [address] Dr. Anahy Sarah Potassium [Moles/Vol] 3.7 mmol/L Normal 3.5-5.1 [facility] Comment on above: Performed By: #### C MP, LIPID #### [facility] [address] [place] [address] Dr. Anahy Sarah Protein [Mass/Vol] 7.2 g/dL Normal 6.4-8.2 [facility] Comment on above: Performed By: #### C MP, LIPID #### [facility] [address] [place] [address] Dr. Anahy Sarah Sodium [Moles/Vol] 138 mmol/L Normal 136-145 [facility] Comment on above: Performed By: #### C MP, LIPID #### [facility] [address] [place] [address] Dr. Anahy Sarah Urea nitrogen [Mass/Vol] 6.0 mg/dL Critically low 7.0-18. 0 [facility] Comment on above: Performed By: #### C MP, LIPID #### [facility] [address] [place] [address] Dr. Anahy Sarah Urea nitrogen/Creatinine [Mass ratio] 8.1 mg/mg Normal [facility] Comment on above: Performed By: #### C MP, LIPID #### [facility] [address] [place] [address] Dr. Anahy Sarah PAP ACOG PANEL 2: 30 to 65on 03-09-2022 . . Normal [facility] Comment on above: Result Comment: Perf ormed at: WB Performed By: #### [id number] #### [facility] [address] [place] [address] Dr. Anahy Sarah Age Gdln ACOG Testing 30-65 Normal [facility] Comment on above: Performed By: #### 4 [id number] #### [facility] [address] [place] [address] Dr. Anahy Sarah DIAGNOSIS: Comment Normal [facility] Comment on above: Result Comment: NEGA TIVE FOR INTRAEPITHELIAL LESION OR MALIGNANCY. Performed at: [facility] Performed By: #### 4 [id number] #### [facility] [address] [place] [address] Dr. Anahy Sarah HPV Aptima Negative Normal Negative [facility] Comment on above: Result Comment: This nucleic acid amplification test detects fourteen high-risk HPV types (16,18,31,33,35,39,45,51,52,56,58,59,66,68) without differentiation. Performed at: =G Performed By: #### [id number] #### [facility] [address] [place] [address] Dr. Anahy Sarah Methodology: Comment Normal [facility] Comment on above: Result Comment: This liquid based ThinPrep(R) pap test was screened with the use of an image guided system. Performed at: WB Performed By: #### 4 [id number] #### [facility] [address] [place] [address] Dr. Anahy Sarah Note: Comment Normal [facility] Comment on above: Result Comment: The Pap smear is a screening test designed to aid in the detection of premalignant and malignant conditions of the uterine cervix. It is not a diagnostic procedure and should not be used as the sole means of detecting cervical cancer. Both false-positive and false-negative reports do occur. . Performed at: WB Performed By: #### [id number] #### [facility] [address] [place] [address] Dr. Anahy Sarah Performed by: Comment Normal [facility] Comment on above: Result Comment: Nayla Garcia, Women'S Health Care Nurse Practitioner (ASCP) Performed at: WB Performed By: #### [id number] #### [facility] [address] [place] [address] Dr. Anahy Sarah Specimen adequacy: Comment Normal [facility] Comment on above: Result Comment: Sati sfactory for evaluation. Endocervical and/or squamous metaplastic cells (endocervical component) are present. Performed at: WB Performed By: #### [id number] #### [facility] [address] [address] [address] Anahy BALDWIN Quick Testingon 2021 Result Negative [facility] Other Quick Fluon 10-12-2021 FLUAV Ab CF (S) [Titer] Negative N [employer] Other FLUBV Ab CF (S) [Titer] Negative N [employer] Other S. pyogenes Ag Ql (Throat)on 10-12-2021 S. pyogenes Org specific cx Ql (Throat) Positive [facility] Other Vital Signs Date Time Vital Sign Value Performing Clinician Facility 10-13-2024 15:19-0400 Body mass index (BMI) [Ratio] 40.77 kg/m2 Abel Kim DO Work Phone: [facility] 10-13-2024 15:19-0400 Body weight 111.13 kg Abel Kim DO Work Phone: [facility] 10-13-2024 15:19-0400 Diastolic blood pressure 100 mm[Hg] Abel Kim DO Work Phone: [facility] 10-13-2024 15:19-0400 Systolic blood pressure 140 mm[Hg] Abel Kim DO Work Phone: [facility] 09-23-2024 14:31-0500 Body mass index (BMI) [Ratio] 41.1 kg/m2 Abel Kim DO Work Phone: [facility] 09-23-2024 14:31-0500 Body weight 112.04 kg Abel Kim DO Work Phone: [facility] 09-23-2024 14:31-0500 Diastolic blood pressure 78 mm[Hg] Abel Kim DO Work Phone: [facility] 09-23-2024 14:31-0500 Systolic blood pressure 128 mm[Hg] Abel Kim DO Work Phone: [facility] 09-14-2024 10:26-0500 Body height 165.1 cm Darlene Julien BUILDING ADMIN-DYNAMOMETER TUNER Work Phone: [facility] 09-14-2024 10:26-0500 Body mass index (BMI) [Ratio] 39.27 kg/m2 Darlene Julien BUILDING ADMIN-DYNAMOMETER TUNER Work Phone: [facility] 09-14-2024 10:26-0500 Body weight 107.05 kg Darlene Julien BUILDING ADMIN-DYNAMOMETER TUNER Work Phone: [facility] 09-10-2024 09:47-0500 Body mass index (BMI) [Ratio] 40.4 kg/m2 Lucinda Florecitaholz EMPLOYMENT ADVISOR Work Phone: [facility] 09-10-2024 09:47-0500 Body temperature 98.29 [degF] Lucinda Adrianahholz EMPLOYMENT ADVISOR Work Phone: [facility] 09-10-2024 09:47-0500 Body weight 110.13 kg Ulcinda Aichholz EMPLOYMENT ADVISOR Work Phone: [facility] 09-10-2024 09:47-0500 Diastolic blood pressure 98 mm[Hg] Lucinda Aichholz EMPLOYMENT ADVISOR Work Phone: [facility] 09-10-2024 09:47-0500 Heart rate 98 /min Lucinda Aichholz EMPLOYMENT ADVISOR Work Phone: [facility] 09-10-2024 09:47-0500 Respiratory rate 18 /min Lucinda Aichholz EMPLOYMENT ADVISOR Work Phone: [facility] 09-10-2024 09:47-0500 SaO2% (BldA) [Mass fraction] 98 % Lucinda Aichholz EMPLOYMENT ADVISOR Work Phone: [facility] 09-10-2024 09:47-0500 Systolic blood pressure 128 mm[Hg] Lucinda Aichholz EMPLOYMENT ADVISOR Work Phone: [facility] 08-21-2024 15:00-0500 SaO2% (BldA) [Mass fraction] 96 % Melani Zaman MD Work Phone: [facility] 08-21-2024 14:45-0500 Diastolic blood pressure 88 mm[Hg] Melani Zaman MD Work Phone: [facility] 08-21-2024 14:45-0500 Heart rate 90 /min Melani Zaman MD Work Phone: [facility] 08-21-2024 14:45-0500 Respiratory rate 19 /min Melani Zaman MD Work Phone: [facility] 08-21-2024 14:45-0500 Systolic blood pressure 142 mm[Hg] Melani Zaman MD Work Phone: [facility] 08-21-2024 14:19-0500 Body temperature 97 [degF] Melani Zaman MD Work Phone: [facility] 08-21-2024 12:22-0500 Body height 165.1 cm Melani Zaman MD Work Phone: [facility] 08-21-2024 12:22-0500 Body mass index (BMI) [Ratio] 39.25 kg/m2 Melani Zaman MD Work Phone: [facility] 08-21-2024 12:22-0500 Body weight 107 kg Melani Zaman MD Work Phone: [facility] 07-07-2024 11:31-0500 Body height 165.1 cm Darlene Julien BUILDING ADMIN-DYNAMOMETER TUNER Work Phone: [facility] 07-07-2024 11:31-0500 Body mass index (BMI) [Ratio] 39.27 kg/m2 Darlene Julien BUILDING ADMIN-DYNAMOMETER TUNER Work Phone: [facility] 07-07-2024 11:31-0500 Body weight 107.05 kg Darlene Julien APRN-DYNAMOMETER TUNER Work Phone: [facility] 06-26-2024 14:26-0500 Body temperature 97.2 [degF] Melani Zaman MD Work Phone: [facility] 06-26-2024 14:26-0500 Diastolic blood pressure 72 mm[Hg] Melani Zaman MD Work Phone: [facility] 06-26-2024 14:26-0500 Heart rate 97 /min Melani Zaman MD Work Phone: [facility] 06-26-2024 14:26-0500 Respiratory rate 18 /min Melani Zaman MD Work Phone: [facility] 06-26-2024 14:26-0500 SaO2% (BldA) [Mass fraction] 95 % Melani Zaman MD Work Phone: [facility] 06-26-2024 14:26-0500 Systolic blood pressure 124 mm[Hg] Melani Zaman MD Work Phone: [facility] 06-26-2024 06:27-0500 Body height 165.1 cm Melani Zaman MD Work Phone: [facility] 06-26-2024 06:27-0500 Body mass index (BMI) [Ratio] 39.47 kg/m2 Melani Zaman MD Work Phone: [facility] 06-26-2024 06:27-0500 Body weight 107.6 kg Melani Zaman MD Work Phone: [facility] 05-18-2024 08:55-0400 Body height 165.1 cm Melani Zaman MD Work Phone: [facility] 05-18-2024 08:55-0400 Body mass index (BMI) [Ratio] 40.6 kg/m2 Melani Zaman MD Work Phone: [facility] 05-18-2024 08:55-0400 Body weight 110.68 kg Melani Zaman MD Work Phone: [facility] 05-18-2024 08:55-0400 Diastolic blood pressure 89 mm[Hg] Melani Zaman MD Work Phone: [facility] 05-18-2024 08:55-0400 Heart rate 85 /min Melani Zaman MD Work Phone: [facility] 05-18-2024 08:55-0400 Systolic blood pressure 146 mm[Hg] Melani Zaman MD Work Phone: [facility] 03-12-2024 09:33-0400 Body height 165.1 cm Lucinda Aichholz EMPLOYMENT ADVISOR Work Phone: [facility] 03-12-2024 09:33-0400 Body mass index (BMI) [Ratio] 39.8 kg/m2 Lucinda Aichholz EMPLOYMENT ADVISOR Work Phone: [facility] 03-12-2024 09:33-0400 Body temperature 98.49 [degF] Lucinda Aichholz EMPLOYMENT ADVISOR Work Phone: [facility] 03-12-2024 09:33-0400 Body weight 108.5 kg Lucinda Aichholz EMPLOYMENT ADVISOR Work Phone: [facility] 03-12-2024 09:33-0400 Diastolic blood pressure 88 mm[Hg] Lucinda Aichholz EMPLOYMENT ADVISOR Work Phone: [facility] 03-12-2024 09:33-0400 Heart rate 83 /min Lucinda Aichholz EMPLOYMENT ADVISOR Work Phone: [facility] 03-12-2024 09:33-0400 Respiratory rate 18 /min Lucinda Aichholz EMPLOYMENT ADVISOR Work Phone: [facility] 03-12-2024 09:33-0400 SaO2% (BldA) [Mass fraction] 99 % Lucinda Aichholz EMPLOYMENT ADVISOR Work Phone: [facility] 03-12-2024 09:33-0400 Systolic blood pressure 118 mm[Hg] Lucinda Aichholz EMPLOYMENT ADVISOR Work Phone: [facility] 06-24-2023 11:15-0500 Body height 167.64 cm Oly Reed Other [facility] Other 06-24-2023 11:15-0500 Body mass index (BMI) [Ratio] 38.73 kg/m2 Oly Reed Other [facility] Other 06-24-2023 11:15-0500 Body temperature 99.8 [degF] Oly Reed Other [facility] Other 06-24-2023 11:15-0500 Body weight 108.86 kg Oly Reed Other [facility] Other 06-24-2023 11:15-0500 Respiratory rate 19 /min Oly Reed Other [facility] Other 06-24-2023 11:15-0500 SaO2% (BldA) [Mass fraction] 98 % Oly Reed Other [facility] Other 06-11-2023 12:20-0500 Body height 167.64 cm Alice Tamez Other [facility] Other 06-11-2023 12:20-0500 Body mass index (BMI) [Ratio] 39.25 kg/m2 Alice Tamez Other [facility] Other 06-11-2023 12:20-0500 Body temperature 98.4 [degF] Alice Tamez Other [facility] Other 06-11-2023 12:20-0500 Body weight 110.32 kg Alice Tamez Other [facility] Other 06-11-2023 12:20-0500 Diastolic blood pressure 93 mm[Hg] Alice Tamez Other [facility] Other 06-11-2023 12:20-0500 Respiratory rate 18 /min Alice Tamez Other [facility] Other 06-11-2023 12:20-0500 SaO2% (BldA) [Mass fraction] 97 % Alice Tamez Other [facility] Other 06-11-2023 12:20-0500 Systolic blood pressure 144 mm[Hg] Alice Tamez Other [facility] Other 10-12-2021 10:20-0400 Body height 167.64 cm Alice Tamez Other [facility] Other 10-12-2021 10:20-0400 Body mass index (BMI) [Ratio] 38.73 kg/m2 Alice Tamez Other [facility] Other 10-12-2021 10:20-0400 Body temperature 98.3 [degF] Alice Tamez Other [facility] Other 10-12-2021 10:20-0400 Body weight 108.86 kg Alice Tamez Other [facility] Other 10-12-2021 10:20-0400 Respiratory rate 18 /min Alice Tamez Other [facility] Other 10-12-2021 10:20-0400 SaO2% (BldA) [Mass fraction] 97 % Alice Tamez Other [facility] Other Encounters Encounter Date Encounter Type Care Provider Facility Start: 02-09-2025 End: 02-09-2025 Refill Lucinda Daz EMPLOYMENT ADVISOR Work Phone: [facility] Comment on above: Rash (Primary Dx) Start: 02-05-2025 End: 02-07-2025 Refill Lucinda Aichholz EMPLOYMENT ADVISOR Work Phone: [facility] Comment on above: Mild intermittent as thma, unspecified whether complicated (HCC) Start: 02-01-2025 End: 02-01-2025 Refill Lucinda Aichholz EMPLOYMENT ADVISOR Work Phone: [facility] Comment on above: Poison carlos (Primary Dx) Start: 01-04-2025 End: 01-04-2025 Refill Lucinda Aichholz EMPLOYMENT ADVISOR Work Phone: [facility] Comment on above: Candidiasis of breas t (Primary Dx) Start: 11-16-2024 End: 11-16-2024 Orders Only Lucinda Aichholz EMPLOYMENT ADVISOR Work Phone: [facility] Comment on above: Iron deficiency anem ia, unspecified iron deficiency anemia type (Primary Dx); Anemia due to other cause, not classified Start: 11-10-2024 End: 11-10-2024 Clinisync Result Encounter Lucinda Florecitaholz EMPLOYMENT ADVISOR Work Phone: [facility] Unsolicited Start: 11-10-2024 End: 11-10-2024 Clinisync Result Encounter Lucinda Aichholz EMPLOYMENT ADVISOR Work Phone: [facility] Unsolicited Start: 11-08-2024 End: 11-09-2024 Refill Lucinda Aichholz EMPLOYMENT ADVISOR Work Phone: [facility] Comment on above: Mild intermittent as thma, unspecified whether complicated (CMS/HCC) Start: 10-13-2024 End: 10-13-2024 Patient encounter procedure Abel Alvarez DO Work Phone: [facility] Comment on above: ASCUS with positive high risk HPV cervical Start: 10-13-2024 End: 10-13-2024 ambulatory ABEL KIM Not Available Start: 10-13-2024 End: 10-13-2024 Departed Referred Abel Kim DO Work Phone: [facility] Start: 09-23-2024 End: 09-23-2024 Bamboo flowsheet Abel Kim DO Work Phone: [facility] Start: 09-23-2024 End: 09-29-2024 Bamboo flowsheet Abel Kim DO Work Phone: [facility] Start: 09-23-2024 End: 09-29-2024 Clinisync Result Encounter Generic External Data Provider [facility] Unsolicited Start: 09-23-2024 End: 09-23-2024 Patient encounter procedure Abel Kim DO Work Phone: [facility] Start: 09-23-2024 End: 09-23-2024 Periodic preventive med est patient 18-39 yrs Abel Kim DO Work Phone: [facility] Comment on above: Well woman exam with routine gynecological exam; Screen for STD (sexually transmitted disease) Start: 09-23-2024 End: 09-23-2024 ambulatory ABEL KIM Not Available Start: 09-21-2024 End: 09-21-2024 Telemedicine consultation with patient Melani Zaman MD Work Phone: [facility] Comment on above: PCOS (polycystic ova rajendra syndrome) (Primary Dx); Postop check Start: 09-21-2024 End: 09-21-2024 ambulatory MELANI ZAMAN [facility] Start: 09-14-2024 End: 09-14-2024 Telemedicine consultation with patient Darlene Julien BUILDING ADMIN-DYNAMOMETER TUNER Work Phone: [facility] Comment on above: Postop check (Primar y Dx) Start: 09-14-2024 End: 09-14-2024 ambulatory DARLENE Mcrae WILY [facility] Start: 09-10-2024 End: 09-10-2024 Bamboo flowsheet Lucinda Adrianajazminolegario EMPLOYMENT ADVISOR Work Phone: [facility] Start: 09-10-2024 End: 09-10-2024 Bamboo flowsheet Lucinda Adrianajazminolegario EMPLOYMENT ADVISOR Work Phone: [facility] Start: 09-10-2024 End: 09-10-2024 Patient encounter status Lucinda Bernabeolegario EMPLOYMENT ADVISOR Work Phone: [facility] Start: 09-10-2024 End: 09-10-2024 Periodic preventive med est patient 18-39 yrs Lucinda Jennifer EMPLOYMENT ADVISOR Work Phone: [facility] Comment on above: Encounter for wellne ss examination in adult (Primary Dx); Morbid (severe) obesity due to excess calories (CMS/HCC); Body mass index (BMI) 39.0-39.9, adult; Mild intermittent asthma without complication (CMS/HCC); Insulin resistance; PCOS (polycystic ovarian syndrome); Iron deficiency anemia, unspecified iron deficiency anemia type; Elevated blood pressure reading Start: 09-10-2024 End: 09-10-2024 ambulatory LUCINDA ADRIANAJazminOLEGARIO Not Available Start: 09-05-2024 End: 09-07-2024 Refill Lucinda Jennifer EMPLOYMENT ADVISOR Work Phone: [facility] Comment on above: Iron deficiency anem ia, unspecified iron deficiency anemia type Start: 08-21-2024 End: 08-26-2024 Clinisync Result Encounter Generic External Data Provider [facility] Unsolicited Start: 08-21-2024 End: 08-26-2024 Clinisync Result Encounter Generic External Data Provider [facility] Unsolicited Start: 08-21-2024 End: 08-21-2024 Subsequent hospital visit by physician Melani Zaman MD Work Phone: [facility] Comment on above: Submucous uterine fi broid (Primary Dx); Post-operative state Start: 08-13-2024 End: 08-13-2024 Refill Lucinda Bernabekirstindavid EMPLOYMENT ADVISOR [facility] Phone[facility] Comment on above: Mild intermittent as thma, unspecified whether complicated (CMS/HCC) Start: 08-10-2024 End: 08-10-2024 ambulatory MELANI ZAMAN [facility] Start: 07-29-2024 ambulatory MELANI ZAMAN [facility] Start: 07-24-2024 End: 09-10-2024 Clinisync Result Encounter Generic External Data Provider [facility] Unsolicited Start: 07-24-2024 End: 09-10-2024 Clinisync Result Encounter Generic External Data Provider [facility] Unsolicited Start: 07-24-2024 End: 07-24-2024 Patient encounter procedure Darlene Julien BUILDING ADMIN-DYNAMOMETER TUNER Work Phone: [facility] Comment on above: Intramural, submucou s, and subserous leiomyoma of uterus (Primary Dx); Encounter for preprocedural laboratory examination Start: 07-24-2024 End: 07-24-2024 Patient encounter status Darlene Julien BUILDING ADMIN-DYNAMOMETER TUNER Work Phone: [facility] Start: 07-24-2024 End: 07-24-2024 ambulatory DARLENE Mcrae [facility] Start: 07-24-2024 End: 07-24-2024 Encounter for preprocedural laboratory examination DARLENE JULIEN [facility] Start: 07-07-2024 End: 07-07-2024 Telemedicine consultation with patient Darlene Julien BUILDING ADMIN-DYNAMOMETER TUNER Work Phone: [facility] Comment on above: Postop check (Primar y Dx) Start: 07-07-2024 End: 07-07-2024 ambulatory DARLENE JULIEN [facility] Start: 06-26-2024 End: 06-26-2024 Subsequent hospital visit by physician Melani Zaman MD Work Phone: [facility] [place] Comment on above: Intramural, submucou s, and subserous leiomyoma of uterus (Primary Dx); Post-operative state Start: 06-25-2024 End: 06-25-2024 ambulatory LUCINDA RODRIGUEZ [facility] Start: 06-25-2024 End: 06-25-2024 Clinisync Result Encounter Generic External Data Provider [facility] Unsolicited Start: 06-25-2024 End: 06-25-2024 Clinisync Result Encounter Generic External Data Provider [facility] Unsolicited Start: 06-03-2024 End: 06-03-2024 Subsequent hospital visit by physician Kandy Huff [facility] Comment on above: Uterine leiomyoma, u nspecified location Start: 06-03-2024 End: 06-03-2024 ambulatory MELANI [facility] Start: 05-19-2024 ambulatory MELANI ZAMAN [facility] Start: 05-18-2024 End: 05-18-2024 ambulatory [facility] Start: 05-18-2024 End: 05-18-2024 Encounter for other preprocedural examination [facility] Start: 05-18-2024 End: 05-18-2024 Patient encounter procedure Melani Zaman MD Work Phone: [facility] Comment on above: Uterine leiomyoma, u nspecified location (Primary Dx); PCOS (polycystic ovarian syndrome); Fertility testing; Screening for diabetes mellitus; Abnormal uterine bleeding Start: 05-18-2024 End: 05-18-2024 ambulatory MELANI [facility] Start: 03-25-2024 End: 03-25-2024 Refill Lucinda Rodriguez NP Work Phone: [facility] Comment on above: Iron deficiency anem ia, unspecified iron deficiency anemia type (Primary Dx) Start: 03-18-2024 End: 03-18-2024 Clinisync Result Encounter Lucinda Rodriguez NP Work Phone: [facility] Unsolicited Start: 03-18-2024 End: 03-18-2024 Clinisync Result Encounter Lucinda Bernabekirstindavid EMPLOYMENT ADVISOR Work Phone: [facility] Unsolicited Start: 03-12-2024 End: 03-12-2024 Bamboo flowsheet Lucinda Rodriguez EMPLOYMENT ADVISOR Work Phone: [facility] Start: 03-12-2024 End: 03-12-2024 Bamboo flowsheet Lucinda Rodriguez EMPLOYMENT ADVISOR Work Phone: [facility] Start: 03-12-2024 End: 03-12-2024 Office outpatient visit 15 minutes Lucinda Bernabeolegario EMPLOYMENT ADVISOR Work Phone: [facility] Comment on above: Iron deficiency anem ia, unspecified iron deficiency anemia type (Primary Dx); Class 2 obesity due to excess calories without serious comorbidity with body mass index (BMI) of 39.0 to 39.9 in adult; Mild intermittent asthma, unspecified whether complicated ([facility]) Start: 03-12-2024 End: 03-12-2024 ambulatory LUCINDA RODRIGUEZ Not Available Start: 02-03-2024 End: 02-03-2024 ambulatory SHAMA ASH Not Available Start: 01-24-2024 End: 01-24-2024 ambulatory PHYSICIAN NO [facility] Work Phone: Start: 01-24-2024 End: 01-24-2024 Departed Referred PHYSICIAN NO [facility] Start: 01-07-2024 End: 01-07-2024 ambulatory ABEL KIM Not Available Start: 12-23-2023 End: 12-23-2023 ambulatory ABEL KIM Not Available Start: 11-25-2023 End: 11-25-2023 ambulatory ABEL KIM Not Available Start: 11-12-2023 End: 11-12-2023 Departed Referred PHYSICIAN NO [facility] Start: 11-12-2023 End: 11-12-2023 ambulatory PHYSICIAN NO [facility] Work Phone: Start: 08-22-2023 Patient encounter status Lucinda Rodriguez EMPLOYMENT ADVISOR Work Phone: [facility] Start: 06-24-2023 End: 06-24-2023 ambulatory Oly Reed Other [facility] Other Start: 06-24-2023 Office outpatient vi sit 15 minutes Oly Brianna [facility] Start: 06-11-2023 End: 06-11-2023 ambulatory Alice Tamez Other [facility] Other Start: 06-11-2023 Office outpatient vi sit 25 minutes Alice Tamez [facility] Start: 08-01-2022 End: 08-01-[address] JANET LANDON Facility:[facility] Start: 04-17-2022 Encounter for genera l adult medical examination without abnormal findings DR JANET LANDON [facility] Start: 04-12-2022 End: 04-13-[address] JANET LANDON Facility:[facility] Start: 04-12-2022 End: 04-13-2022 Encounter for general adult medical examination without abnormal findings DR JANET LANDON Facility:[facility] Start: 03-05-2022 End: 03-05-[address] JANET LANDON Facility:[facility] Start: 10-12-2021 End: 10-12-2021 ambulatory Alice Tamez Other [facility] Other Start: 10-12-2021 Office outpatient vi sit 15 minutes Alice Dashawn [facility] Start: 10-05-2021 End: 10-06-[address] SHEILA LYONS Facility:[facility] Procedures Date Procedure Procedure Detail Performing Clinician Start: 11-10-2024 ALL CBC WITH AUTO DIFF Lucinda Rodriguez EMPLOYMENT ADVISOR Work Phone: Start: 10-13-2024 COLPOSCOPY Abel Fazi o DO Work Phone: Start: 10-13-2024 Urine test visual color cmprsn meths Abel Kim DO Work Phone: Start: 09-23-2024 IGP,APTIMA HPV,AGE GDLN Abel Alvarez DO Work Phone: Start: 09-23-2024 Microscopic observat ion [Identifier] in Cervix by Cyto stain Abel Alvarez DO Work Phone: Start: 08-21-2024 PULSE OXIMETRY, CONTINUOUS Bailey Gaviria MD Work Phone: Start: 08-21-2024 SURGICAL PATHOLOGY EXAM Generic External Data Provider Start: 08-21-2024 Urine test visual color mary ellen Zaman MD Work Phone: Start: 07-24-2024 Urine test visual color mary ellen Price MD Work Phone: Start: 07-24-2024 ARBORIST SONOHYSTEROGRAM Chloe Julien BUILDING ADMIN-DYNAMOMETER TUNER Work Phone: Start: 07-24-2024 US SONOHYSTEROGRAM Gene hussein External Data Provider Start: 06-26-2024 PULSE OXIMETRY, CONTINUOUS Parish Moreno MD Work Phone: Start: 06-26-2024 Urine test visual color mary ellen Zaman MD Work Phone: Start: 06-25-2024 UH CBC AND DIFFERENTIAL Generic External Data Provider Start: 06-03-2024 Mri pelvis w/o & w/c ontrast material Mealni Zaman MD Work Phone: Start: 03-18-2024 ALL CBC WITH AUTO DIFF Lucinda Rodriguez EMPLOYMENT ADVISOR Work Phone: Start: 04-16-2023 Microscopic observat ion [Identifier] in Cervix by Cyto stain Lucinda Rodriguez NP Work Phone: Plan of Treatment Date Care Activity Detail Author Start: 2041 Zoster Vaccines (1 o f 2) Zoster Vaccines (1 of 2) [facility] Start: 04-16-2028 Screening for malign ant neoplasm of cervix [facility] Start: 09-24-2027 Screening for malign ant neoplasm of cervix Pap Smear [facility] Start: 04-16-2026 Screening for malign ant neoplasm of cervix [facility] Start: 09-29-2025 End: 09-29-2025 Patient encounter procedure 09/29/2025 1:00 PM EDT Office Visit [facility] [address] [place] [id number] Abel Alvarez, DO [address] [place] [address] [facility] Start: 05-21-2025 Influenza vaccination Influenza Vacc ine (#1) [facility] Comment on above: Postponed from 03/22 (Patient Does Not Have Time) Start: 05-03-2025 End: 05-03-2025 Patient encounter procedure 05/03/2025 10:40 AM EDT Procedure Visit [facility] [address] [place] [id number] Abel Alvarez, DO [address] [place] [address] [facility] Start: 03-22-2025 Influenza vaccination Influenza Vacc ine (#1) [facility] Start: 03-10-2025 End: 03-10-2025 Patient encounter procedure 03/10/2025 9:40 AM EDT Office Visit [facility] [address] [place] [address] Lucinda Rodriguez NP [address] [place] [address] [facility] Start: 11-16-2024 End: 11-16-2025 CBC W Auto Differential panel - Blood CBC and differential Lab Routine Iron deficiency anemia, unspecified iron deficiency anemia type Expected: 11/16/2024 (Approximate), Expires: 11/16/2025 [facility] Work Phone: Comment on above: Expected: 11/16/2024 (Approximate), Expires: 11/16/2025 Start: 11-16-2024 End: 11-16-2025 Cobalamin (Vitamin B12) [Mass/volume] in Serum or Plasma Vitamin B12 Lab Routine Anemia due to other cause, not classified Expected: 11/16/2024 (Approximate), Expires: 11/16/2025 [facility] Comment on above: Expected: 11/16/2024 (Approximate), Expires: 11/16/2025 Start: 11-16-2024 End: 11-16-2025 Ferritin [Mass/volume] in Serum or Plasma Ferritin Lab Routine Iron deficiency anemia, unspecified iron deficiency anemia type Expected: 11/16/2024 (Approximate), Expires: 11/16/2025 [facility] Comment on above: Expected: 11/16/2024 (Approximate), Expires: 11/16/2025 Start: 11-16-2024 End: 11-16-2025 Iron and Iron binding capacity panel - Serum or Plasma Iron level Lab Routine Iron deficiency anemia, unspecified iron deficiency anemia type Expected: 11/16/2024 (Approximate), Expires: 11/16/2025 [facility] Comment on above: Expected: 11/16/2024 (Approximate), Expires: 11/16/2025 Start: 10-13-2024 End: 10-13-2025 Colposcopy Colposcopy Procedures Routine ASCUS with positive high risk HPV cervical Expected: 10/13/2024 (Approximate), Expires: 10/13/2025 [facility] Work Phone: Comment on above: Expected: 10/13/2024 (Approximate), Expires: 10/13/2025 Start: 09-23-2024 End: 09-23-2024 Patient encounter procedure [facility] Comment on above: Arrived Start: 09-21-2024 End: 09-21-2024 Telemedicine consultation with patient 09/21/2024 8:30 AM EST Telemedicine [facility] [address] [place] [address] Melani Zaman MD [address], [address] [place] [address] [facility] Start: 09-14-2024 End: 09-14-2024 Telemedicine consultation with patient 09/14/2024 11:45 AM EST Telemedicine G[facility]nesis Banks [address] [place] [phone] Darlene Julien, BUILDING ADMIN-DYNAMOMETER TUNER [address] [place] [address] G[facility] Banks Start: 09-10-2024 End: 09-10-2025 CBC W Auto Differential panel - Blood CBC and differential Lab Routine Encounter for wellness examination in adult Expected: 09/10/2024 (Approximate), Expires: 09/10/2025 [facility] Work Phone: Comment on above: Expected: 09/10/2024 (Approximate), Expires: 09/10/2025 Start: 09-10-2024 End: 09-10-2025 Cobalamin (Vitamin B12) [Mass/volume] in Serum or Plasma Vitamin B12 Lab Routine Iron deficiency anemia, unspecified iron deficiency anemia type Expected: 09/10/2024 (Approximate), Expires: 09/10/2025 [facility] Comment on above: Expected: 09/10/2024 (Approximate), Expires: 09/10/2025 Start: 09-10-2024 End: 09-10-2025 Comprehensive metabolic 2000 panel - Serum or Plasma Comprehensive metabolic panel Lab Routine Encounter for wellness examination in adult Expected: 09/10/2024 (Approximate), Expires: 09/10/2025 [facility] Comment on above: Expected: 09/10/2024 (Approximate), Expires: 09/10/2025 Start: 09-10-2024 End: 09-10-2025 Ferritin [Mass/volume] in Serum or Plasma Ferritin Lab Routine Iron deficiency anemia, unspecified iron deficiency anemia type Expected: 09/10/2024 (Approximate), Expires: 09/10/2025 [facility] Comment on above: Expected: 09/10/2024 (Approximate), Expires: 09/10/2025 Start: 09-10-2024 End: 09-10-2025 Hemoglobin A1c/Hemoglobin.total in Blood Hemoglobin A1c Lab Routine Insulin resistance PCOS (polycystic ovarian syndrome) Encounter for wellness examination in adult Expected: 09/10/2024 (Approximate), Expires: 09/10/2025 [facility] Comment on above: Expected: 09/10/2024 (Approximate), Expires: 09/10/2025 Start: 09-10-2024 End: 09-10-2025 Insulin, random Insulin, random Lab Routine Insulin resistance PCOS (polycystic ovarian syndrome) Expected: 09/10/2024 (Approximate), Expires: 09/10/2025 [facility] Comment on above: Expected: 09/10/2024 (Approximate), Expires: 09/10/2025 Start: 09-10-2024 End: 09-10-2025 Iron + transferrin + TIBC Iron + transferrin + TIBC Lab Routine Iron deficiency anemia, unspecified iron deficiency anemia type Expected: 09/10/2024 (Approximate), Expires: 09/10/2025 [facility] Comment on above: Expected: 09/10/2024 (Approximate), Expires: 09/10/2025 Start: 09-10-2024 End: 09-10-2025 Lipid 1996 panel - Serum or Plasma Lipid panel Lab Routine Encounter for wellness examination in adult Expected: 09/10/2024 (Approximate), Expires: 09/10/2025 [facility] Comment on above: Expected: 09/10/2024 (Approximate), Expires: 09/10/2025 Start: 09-10-2024 End: 09-10-2025 Thyrotropin [Units/volume] in Serum or Plasma TSH Lab Routine Encounter for wellness examination in adult Expected: 09/10/2024 (Approximate), Expires: 09/10/2025 [facility] Comment on above: Expected: 09/10/2024 [...] Submucous uterine fibroid 08/21/2024 12:53 PM EST [facility] A OR Start: 08-10-2024 End: 08-10-2024 Telemedicine consultation with patient 08/10/2024 12:00 PM EST Telemedicine [facility] [address] [facility] [address] [place] [address] Melani Zaman MD [address] [place] [address] [facility] Start: 07-24-2024 End: 07-24-2024 Patient encounter procedure 07/24/2024 1:30 PM EST Office Visit Génesis Banks [address] [place] [address] Darlene Julien, BUILDING ADMIN-DYNAMOMETER TUNER [address] [place], [place] [id number] G[facility]nesis Banks Start: 07-07-2024 End: 07-07-2024 Telemedicine consultation with patient 07/07/2024 11:30 AM EST Telemedicine Génesis Banks [address] [place] [address] Darlene Julien, BUILDING ADMIN-DYNAMOMETER TUNER [address] [place] [address] Génesis Banks Start: 06-26-2024 End: 06-26-2024 Admission to same day surgery center 06/26/2024 11:30 AM EST - 06/26/2024 3:[address] [facility] [place] [address] [place] [address] Melani Zaman MD [address] [facility] [address], [facility] [address] [place] [address] Laparoscopic Myomectomy [95531 (CPT )] [facility] [place] Comment on above: Laparoscopic Myomect raza [65135 (CPT )] Start: 06-26-2024 End: 06-26-2024 Chromotubation [...] physician 06/26/2024 10:00 AM EST Hospital Encounter [facility] [place] [address] [place] [address] Melani Zaman MD [address] [facility] [address], [place] [id number] [facility] [place] Start: 06-26-2024 End: 06-26-2024 Chromotubation oviduct [...] uterine bleeding Expected: 05/18/2024 (Approximate), Expires: 05/18/2025 [facility] Work Phone: Comment on above: Expected: 05/18/2024 (Approximate), Expires: 05/18/2025 Start: 05-18-2024 End: 05-18-2025 Hemoglobin A1c/Hemoglobin.total in Blood Hemoglobin A1C Lab Routine Screening for diabetes mellitus Expected: 05/18/2024 (Approximate), Expires: 05/18/2025 [facility] Work Phone: Comment on above: Expected: 05/18/2024 (Approximate), Expires: 05/18/2025 Start: 05-18-2024 End: 05-18-2025 MR Pelvis WO and W contrast IV MR pelvis w and wo IV contrast Imaging Routine Uterine leiomyoma, unspecified location Expected: 05/18/2024, Expires: 05/18/2025 [facility] Work Phone: Comment on above: Expected: 05/18/2024 , Expires: 05/18/2025 Start: 05-18-2024 End: 05-18-2025 Mullerian inhibiting substance [Mass/volume] in Serum or Plasma Antimullerian Hormone (Amh) Lab Routine PCOS (polycystic ovarian syndrome) Expected: 05/18/2024 (Approximate), Expires: 05/18/2025 [facility] Service Area Work Phone: Comment on above: Expected: 05/18/2024 (Approximate), Expires: 05/18/2025 Start: 05-06-2024 End: 05-06-2024 Patient encounter procedure 05/06/2024 9:00 AM EDT Office Visit [facility] [address] [place] [address] Shama Ash PA [address] [place] [address] [facility] Start: 04-08-2024 End: 04-08-2024 Patient encounter procedure 04/08/2024 3:00 PM EDT Office Visit [facility] [address] [place] [id number] Abel Alvarez DO [address] [facility] [address] [place] [address] [facility] Start: 03-25-2024 End: 03-25-2025 Measurement of occult blood in single stool specimen Occult blood x 1, stool Lab Routine Iron deficiency anemia, unspecified iron deficiency anemia type Expected: 03/25/2024 (Approximate), Expires: 03/25/2025 [facility] Work Phone: Comment on above: Expected: 03/25/2024 (Approximate), Expires: 03/25/2025 Start: 03-22-2024 COVID-19 Vaccine ( season) COVID-19 Vaccine ( season) [facility] Start: 03-22-2024 COVID-19 Vaccine ( season) COVID-19 Vaccine ( season) [facility] Start: 03-22-2024 Influenza vaccination Influenza Vacc ine (#1) [facility] Start: 03-12-2024 End: 03-12-2025 CBC W Auto Differential panel - Blood CBC and differential Lab Routine Iron deficiency anemia, unspecified iron deficiency anemia type Expected: 03/12/2024 (Approximate), Expires: 03/12/2025 [facility] Work Phone: Comment on above: Expected: 03/12/2024 (Approximate), Expires: 03/12/2025 Start: 03-12-2024 End: 03-12-2025 Ferritin [Mass/volume] in Serum or Plasma Ferritin Lab Routine Iron deficiency anemia, unspecified iron deficiency anemia type Expected: 03/12/2024 (Approximate), Expires: 03/12/2025 [facility] Comment on above: Expected: 03/12/2024 (Approximate), Expires: 03/12/2025 Start: 03-12-2024 End: 03-12-2025 Iron and Iron binding capacity panel - Serum or Plasma Iron level Lab Routine Iron deficiency anemia, unspecified iron deficiency anemia type Expected: 03/12/2024 (Approximate), Expires: 03/12/2025 [facility] Comment on above: Expected: 03/12/2024 (Approximate), Expires: 03/12/2025 Start: 03-12-2024 End: 03-12-2024 Patient encounter procedure 03/12/2024 9:20 AM EDT Office Visit [facility] [address] [place] [address] Lucinda Rodriguez NP [address] [place] [address] Iron deficiency anemia, unspecified iron deficiency anemia type (Primary Dx); Insulin resistance [facility] Comment on above: Iron deficiency anem ia, unspecified iron deficiency anemia type (Primary Dx); Insulin resistance Start: 12-30-2021 DTaP/Tdap/Td Vaccine s (2 - Td or Tdap) DTaP/Tdap/Td Vaccines (2 - Td or Tdap) [facility] Start: 02-19-2012 Screening for malign ant neoplasm of cervix HPV/Cotest [facility] Start: 2010 Pneumococcal Vaccine : Pediatrics and At-Risk Adult Patients (1 of 2 - PCV) Pneumococcal Vaccine: Pediatrics and At-Risk Adult Patients (1 of 2 - PCV) [facility] Start: 2010 Urine screening for protein CKD: Urine Protein Screening [facility] Start: 2009 Hepatitis C screening Hepatitis C Sc [facility] Start: 02-19-2004 Varicella vaccination Varicell a Vaccines (1 of 2 - 13+ 2-dose series) [facility] Start: 1997 Pneumococcal Vaccine : Pediatrics (0 to 5 Years) and At-Risk Patients (6 to 64 Years) (1 of 2 - PCV) Pneumococcal Vaccine: Pediatrics (0 to 5 Years) and At-Risk Patients (6 to 64 Years) (1 of 2 - PCV) [facility] Start: 02-19-1992 MMR Vaccines (1 of 1 - Standard series) MMR Vaccines (1 of 1 - Standard series) [facility] Start: 1991 HIV screening HIV Screening [facility] Start: 1991 Lipid panel Lipid Panel [facility] Start: 1991 Yearly Adult Physical Yearly Adult P hysical [facility] Bacteria identified in Urine by Culture Urine culture Microbiology Routine Screen for STD (sexually transmitted disease) Ordered: 09/23/2024 [facility] Comment on above: Ordered: 09/23/2024 End: 06-26-2024 Blood type and Indirect antibody screen panel - Blood Type And Screen Lab Timed As needed (Lab) until discontinued starting 06/26/2024 [facility] Service Area Work Phone: Comment on above: As needed (Lab) unti l discontinued starting 06/26/2024 End: 08-21-2024 Blood type and Indirect antibody screen panel - Blood Type And Screen Lab Timed As needed (Lab) until discontinued starting 08/21/2024 [facility] Service Area Work Phone: Comment on above: As needed (Lab) unti l discontinued starting 08/21/[address] w/materials Exploration Laparoscopy with Chromopertubation Intramural, submucous, and subserous leiomyoma of uterus [facility] A OR Cytology Cervical or vaginal smear or scraping study Pap Smear Pathology and Cytology Routine Well woman exam with routine gynecological exam Ordered: 09/23/2024 [facility] [employer] Work Phone: Comment on above: Ordered: 09/23/2024 Human papilloma viru s DNA [Presence] in Unspecified specimen by Probe with amplification HPV DNA probe, amplified Microbiology Routine Well woman exam with routine gynecological exam Ordered: 09/23/2024 [facility] [employer] Comment on above: Ordered: 09/23/2024 Hysteroscopy diagnos tic separate procedure HYSTEROSCOPY, DIAGNOSTIC Intramural, submucous, and subserous leiomyoma of uterus [facility] OR Hysteroscopy removal leiomyomata HYSTEROSCOPY, WITH UTERINE MYOMECTOMY Submucous uterine fibroid [facility] A OR Laps myomectomy exc 5/> myomas >250 grams MYOMECTOMY, LAPAROSCOPIC Intramural, submucous, and subserous leiomyoma of uterus Virtual U A OR Surgical pathology study [facility] Work Phone: Comment on above: Release Upon Orderin g for 1 Occurrences starting 06/26/2024, 1 completed Surgical pathology study [facility] Work Phone: Comment on above: Release Upon Orderin g for 1 Occurrences starting 08/21/2024, 1 completed US.doppler Uterus an d Fallopian tubes W saline IU US sonohysterogram Imaging Routine Intramural, submucous, and subserous leiomyoma of uterus 07/24/2024 2:36 PM EST [facility] Service Area Work Phone: End: 08-21-2024 VERIFY ABO/Rh Group Test VERIFY ABO/Rh Group Test Lab Routine Once (Lab) for 1 Occurrences starting 08/21/2024 until 08/21/2024 [facility] Work Phone: Comment on above: Once (Lab) for 1 Occ urrences starting 08/21/2024 until 08/21/2024 Immunizations Immunization Date Immunization Notes Care Provider Mahsa weinberg 05-04-2024 influenza virus vacc ine, unspecified formulation Lucinda Aichholz EMPLOYMENT ADVISOR Work Phone: [facility] 04-21-2023 influenza virus vacc ine, unspecified formulation Lucinda Aichholz EMPLOYMENT ADVISOR Work Phone: [facility] 10-05-2021 Pfizer Purple Cap SARS-CoV-2 Vaccination Lucinda Aichholz EMPLOYMENT ADVISOR Work Phone: [facility] 04-04-2021 Pfizer Purple Cap SARS-CoV-2 Vaccination Lucinda Aichholz EMPLOYMENT ADVISOR Work Phone: [facility] 03-14-2021 Pfizer Purple Cap SARS-CoV-2 Vaccination Lucinda Aichholz EMPLOYMENT ADVISOR Work Phone: [facility] 04-18-2020 influenza, seasonal, injectable Lucinda Aichholz EMPLOYMENT ADVISOR Work Phone: [facility] 05-02-2017 influenza, seasonal, injectable Lucinda Aichholz EMPLOYMENT ADVISOR Work Phone: [facility] 04-17-2013 influenza, seasonal, injectable Lucinda Aichholz EMPLOYMENT ADVISOR Work Phone: [facility] 07-17-2012 hepatitis B vaccine, adult dosage Lucinda Aichholz EMPLOYMENT ADVISOR Work Phone: [facility] 01-31-2012 hepatitis B vaccine, adult dosage Lucinda Aichholz EMPLOYMENT ADVISOR Work Phone: [facility] 12-31-2011 hepatitis B vaccine, adult dosage Lucinda Aichholz EMPLOYMENT ADVISOR Work Phone: [facility] 12-31-2011 tetanus toxoid, redu lashanda diphtheria toxoid, and acellular pertussis vaccine, adsorbed Lucinda Aichholz EMPLOYMENT ADVISOR Work Phone: [facility] Healthcare Payers Date Payer Category [facility]ayer [facility] [id number] 2022 [facility] Managed Care [facility] [id number] 2022 Unknown BCBS BCBS [id number] 2022-Present [phone] [address] [place] [address] [id number]. [id number] 2022 Unknown [id number] 2019 Unknown [id number] 2.16.840.1.771930.19 1991 Unknown [id number] 2.16.840.1.341420.3.579.2. 593 1991 Unknown [id number] 2.16.840.1.156625.3.579.2. 593 1991 Unknown [id number] 2.16.840.1.568337.3.579.2. 593 1991 Unknown [id number] 2.16.840.1.426916.3.579.2. 1246 1991 Unknown [id number] 2.16.840.1.807850.3.579.2. 2 1991 Unknown [id number] 2.16.840.1.567854.3.579.2. 1242 1991 Unknown [id number] 2.16.840.1.371313.3.579.2. 1245 1991 Unknown [id number] 2.16.840.1.002907.3.579.2. 1245 1991 Unknown [id number] 2.16.840.1.185862.3.579.2. 124 1991 Unknown [id number] 2.16.840.1.329903.3.579.2. 1245 1991 Unknown [id number] 2.16.840.1.814973.3.579.2. 124 1991 Unknown [id number] 2.16.840.1.194170.3.579.2. 5 1991 Unknown [id number] 2.16.840.1.943137.3.579.2. 1244 1991 Unknown [id number] 2.16.840.1.152962.3.579.2. 5 1991 Unknown [id number] 2.16.840.1.965915.3.579.2. 1258 1991 Unknown [id number] 2.16.840.1.263138.3.579.2. 1258 1991 Unknown [id number] 2.16.840.1.327690.3.579.2. 1258 1991 Unknown [id number] 2.16.840.1.748016.3.579.2. 1258 1991 Unknown [id number] 2.16.840.1.553712.3.579.2. 1258 1991 Unknown [id number] 2.16.840.1.866599.3.579.2. 1258 1991 Unknown [id number] 2.16.840.1.644409.3.579.2. 1258 1991 Unknown [id number] 2.16.840.1.228582.3.579.2. 9 1991 Unknown [id number] 2.16.840.1.883399.3.579.2. 9 1959 Self-pay [id number] Unknown [id number] 2.16.840.1.458549.3.579.2. 593 Social History Date Type Detail Facility Unknown if ever smoked [facility] Other Start: 05-18-2024 End: 09-10-2024 Sex Assigned At [facility] Start: 03-23-2023 End: 11-13-2023 Tobacco smoking status NEIS Never smoked tobacco (finding) [facility] Start: 1990 Sex Assigned At Female F [facility] Start: 03-23-2023 End: 05-18-2024 Tobacco use and exposure Smokeless tobacco non-user [facility] Start: 05-18-2024 End: 10-13-2024 Alcoholic beverage intake Current drinker of alcohol (finding) [facility] Start: 05-11-2024 Gender identity Identifies as female gender (finding) [facility] Work Phone: Start: 05-11-2024 Sexual orientation Heterosexua l (finding) [facility] Work Phone: Start: 05-08-2024 End: 09-21-2024 Exposure to SARS-CoV-2 (event) Not sure [facility] Start: 05-18-2024 End: 09-10-2024 History of Social function [facility] Within [...] Not at all [facility] (I/We) worried dutch er (my/our) food would run out before (I/we) got money to buy more. Never true [facility] Start: 10-13-2023 Alcohol Comment occasional alc ohol use [facility] Start: 1990 Sex assigned at Not on file [facility] Start: 06-27-2024 End: 09-14-2024 Exposure to SARS-CoV-2 (event) Unable to assess [facility] How hard is it for y ou to pay for the very basics like food, housing, medical care, and heating Not very hard [facility] Start: 10-15-2024 Sex Female (finding) [facility] NEGATED: Highlighted rowStart: MEETF History of tobacco use Passive smoker [facility] Work Phone: Clinical Notes 10-12-2021 to 10-13-2024 Keyonna Burleson LPN - 10/13/2024 2:30 PM Gabriella Burleson LPN - 09/23/2024 2:00 PM Rony Zaman MD - 09/21/2024 8:30 AM RETA [facility] - 09/14/2024 11:45 AM ESTPatient Instructions Note Date & Type Note Facility 10-13-2024 History of Present illness Narrative Associated Order(s): Colposcopy Post-Procedure Diagnose(s): ASCUS with positive high risk HPV cervical Reason for Appointment: Patient ID: Barb Estrada is a 34 y.o. female who presents for Colposcopy Patient presents today for a Colposcopy appointment. MEDICATIONS Current Outpatient Medications Medication Instructions albuterol HFA 90 mcg/act inhaler 2 puffs, Inhalation, Every 6 hours PRN Cyanocobalamin (B-12) 1000 MCG capsule Take by mouth ferrous sulfate 325 mg, Oral, 2 times daily before meals, Take with food. metFORMIN XR (GLUCOPHAGE-XR) 500 mg, Oral, Daily with evening meal, Do not crush, chew, or split. montelukast (SINGULAIR) 10 mg, Oral, Nightly ALLERGIES Allergies Allergen Reactions Cat Dander SURGICAL HISTORY Past Surgical History: Procedure Laterality Date DILATION AND CURETTAGE OF UTERUS 01/24/2024 GANGLION CYST EXCISION Right PAP SMEAR 03/05/2022 Normal REVIEW OF SYSTEMS Review of Systems: Review of Systems Constitutional: Negative. HENT: Negative. Eyes: Negative. Respiratory: Negative. Cardiovascular: Negative. Gastrointestinal: Negative. Genitourinary: Negative. Musculoskeletal: Negative. Skin: Negative. Neurological: Negative. All other systems reviewed and are negative. Hematological: Negative. Endocrine: Negative. Allergic/Immunologic: Negative. OBJECTIVE Objective: Physical Exam Constitutional: Appearance: Normal appearance. She is well-developed. Genitourinary: Vulva normal. Cardiovascular: Rate and Rhythm: Normal rate and regular rhythm. Pulmonary: Effort: Pulmonary effort is normal. Breath sounds: Normal breath sounds. Abdominal: General: Bowel sounds are normal. There is no distension. Palpations: Abdomen is soft. Tenderness: There is no abdominal tenderness. There is no guarding or rebound. Musculoskeletal: General: No swelling. Normal range of motion. Right lower leg: No edema. Left lower leg: No edema. Neurological: Mental Status: She is alert and oriented to person, place, and time. Skin: General: Skin is warm and dry. Psychiatric: Mood and Affect: Mood normal. Behavior: Behavior normal. Vitals and nursing note reviewed. Exam conducted with a price checker present. Vitals: Estimated body mass index is 40.77 kg/m as calculated from the following: Height as of 03/12/24: 5' 5 . Weight as of this encounter: 245 lb. BP: (!) 140/100 Patient's last menstrual period was 09/21/2024 (approximate). ASSESSMENT & PLAN Assessment/Plan Encounter Diagnosis: ICD-10-CM 1. ASCUS with positive high risk HPV cervical R87.610 POCT , urine manually resulted R87.810 Colposcopy Colposcopy Date/Time: 10/13/2024 3:40 PM Performed by: Abel Alvarez DO Authorized by: Abel Alvarez DO Consent: Patient questions answered: yes Risks and benefits of the procedure and its alternatives discussed: yes Procedural risks discussed: Bleeding and infection Consent obtained: Written Consent given by: Patient Indication: Other indication(s): clinical abnormality Pre-procedure: Prep solution(s): acetic acid Procedure: Colposcopy details: Colposcopy: Patient is doing well and has no complaints. Pap results have been reviewed with the patient in great detail and patient voiced understanding. Patient presents today for a Colposcopy with ECC and 10 oclock biopsy. Patient was placed in dorsal lithotomy position with feet in stirrups, a sterile speculum was placed into the vagina and the cervix was visualized. Cervix was cleansed with vinegar. Postprocedural instructions given. All if patients questions answered and she expressed understanding. Advised to call in interim with questions or concerns. Follow Up: Patient is to return in 6 months for Repeat Pap. Cervix visibility: fully visualized Lesion visualized: fully visualized Documented by Keyonna Burleson LPN on behalf of: Abel Alvarez DO documented in this encounter [facility] 09-23-2024 History of Present illness Narrative Reason for Appointment: Patient ID: Barb Estrada is a 34 y.o. female who presents for Gynecologic Exam Patient presents today for Annual Exam. MEDICATIONS Current Outpatient Medications Medication Instructions albuterol HFA [...] 0.25-35 MG-MCG tablet 1 tablet, Daily RT ALLERGIES Allergies Allergen Reactions Cat Dander PROBLEMS Active Ambulatory Problems Diagnosis Date Noted History of COVID-19 07/25/2023 Mild intermittent asthma (CMS/HCC) 07/25/2023 Menorrhagia with regular cycle 08/22/2023 Encounter for wellness examination in adult 08/22/2023 Elevated blood pressure reading 08/22/2023 Other specified anemias 09/17/2023 Hypertriglyceridemia (CMS/HCC) 09/18/2023 EMILY (iron deficiency anemia) 09/20/2023 Insulin resistance 10/14/2023 Abnormal menstrual cycle 10/14/2023 Fibroids 12/25/2023 Episode of heavy vaginal bleeding 12/25/2023 Morbid (severe) obesity due to excess calories (CMS/HCC) 03/12/2024 Body mass index (BMI) 39.0-39.9, adult 09/10/2024 PCOS (polycystic ovarian syndrome) 06/26/2024 Intramural, submucous, and subserous leiomyoma of uterus 05/18/2024 Resolved Ambulatory Problems Diagnosis Date Noted Sinus tachycardia 07/25/2023 BMI 40.0-44.9, adult (CMS/HCC) 08/22/2023 Class 3 severe obesity with body mass index (BMI) of 40.0 to 44.9 in adult (CMS/HCC) 10/01/2023 Past Medical History: Diagnosis Date Encounter for gynecological examination (general) (routine) without abnormal findings 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 Yeast infection HISTORY PAST MEDICAL HISTORY SOCIAL HISTORY Past Medical History: Diagnosis Date Encounter for gynecological examination (general) (routine) without abnormal findings History of COVID-19 alf current use of inhaled steroid Menorrhagia with regular cycle Mild intermittent asthma ([facility]) Sinus tachycardia Yeast infection Social History Tobacco Use Smoking status: Never Smokeless tobacco: Never Vaping Use Vaping status: Never Used Substance Use Topics Alcohol use: Yes Comment: occasional alcohol use Drug use: Never FAMILY HISTORY Family History Problem Relation Name Age of Onset No Known Problems Mother Hypertension Father Medardo Other (Legionnaire's Disease) Father Medardo Emphysema Father Medardo No Known Problems Brother Cancer Maternal Grandmother Poly Pancreatic cancer Maternal Grandmother Poly Cancer Paternal Grandmother Marisel SURGICAL HISTORY Past Surgical History: Procedure Laterality Date DILATION AND CURETTAGE OF UTERUS 01/24/2024 GANGLION CYST EXCISION Right PAP SMEAR 03/05/2022 Normal REVIEW OF SYSTEMS Review of Systems: Review of Systems Constitutional: Negative. HENT: Negative. Eyes: Negative. Respiratory: Negative. Cardiovascular: Negative. Gastrointestinal: Negative. Genitourinary: Negative. Musculoskeletal: Negative. Skin: Negative. Neurological: Negative. All other systems reviewed and are negative. Hematological: Negative. Endocrine: Negative. Allergic/Immunologic: Negative. OBJECTIVE Objective: Physical Exam Constitutional: Appearance: Normal appearance. She is well-developed. Genitourinary: Vulva normal. Breasts: Breasts are soft. Right: Normal. Left: Normal. Cardiovascular: Rate and Rhythm: Normal rate and regular rhythm. Pulmonary: Effort: Pulmonary effort is normal. Breath sounds: Normal breath sounds. Abdominal: General: Bowel sounds are normal. There is no distension. Palpations: Abdomen is soft. Tenderness: There is no abdominal tenderness. There is no guarding or rebound. Musculoskeletal: General: No swelling. Normal range of motion. Right lower leg: No edema. Left lower leg: No edema. Neurological: Mental Status: She is alert and oriented to person, place, and time. Skin: General: Skin is warm and dry. Psychiatric: Mood and Affect: Mood normal. Behavior: Behavior normal. Vitals and nursing note reviewed. Exam conducted with a price checker present. Vitals: Estimated body mass index is 41.1 kg/m as calculated from the following: Height as of 03/12/24: 5' 5 . Weight as of this encounter: 247 lb. BP: 128/78 Patient's last menstrual period was 09/21/2024 (approximate). ASSESSMENT & PLAN ICD-10-CM 1. Well woman exam with routine gynecological exam Z01.419 Pap Smear HPV DNA probe, amplified 2. Screen for STD (sexually transmitted disease) Z11.3 Urine culture Annual Exam: Patient presents today for an annual exam. Patient states she is doing well and has no complaints. Pap was obtained without difficulty. Discussed uterine myomectomy with pt in detail. Orders Placed This Encounter Procedures HPV DNA probe, amplified Urine culture Follow Up: Patient is to return in one year for annual unless needed otherwise. Documented by Keyonna Burleson LPN on behalf of: Abel Alvarez DO documented in this encounter [facility] 09-21-2024 History of Present illness Narrative Virtual [...] 09/21/2024 8:59 AM documented in this encounter [facility] Work Phone: 09-14-2024 History of Present illness Narrative Virtual or Telephone Consent: An interactive audio and video telecommunication system which permits real time communications between the patient (at the originating site) and provider (at the distant site) was utilized to provide this telehealth service reviewed, Authorization status not noted. Post Op Visit Seen Barb Peoria s/p Hysteroscopic myomectomy on [address] [...] This case has been reviewed at the [facility] consensus conference via Zoom on 08/26/24. Schedule Follow up with DR. 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 d/t removal of fibroids, will continue the ferrous sulfate and recheck labs end of October and if good consider stopped ferrous sulfate [...] prn sxs changes Menses is a lot consulting analyst now d/t removal of fibroids, will continue the ferrous sulfate and recheck labs end of October and if good consider stopped ferrous sulfate [...] minimal in general documented in this encounter [facility] 09-10-2024 Instructions Lucinda Rodriguez NP - 09/10/2024 9:40 AM EST Recommend exercise 2-3 times weekly DASH diet Get labs completed toward end of October 2024 documented in this encounter [facility] 08-26-2024 Note [facility] SURG1 This case has b een reviewed at the [facility] consensus conference via Zoom on 08/26/24. 08-21-2024 Note Formatting of this n ote might be different from the original. Patient arrived to [facility] after procedure with Anesthesia and supervising nurse, procedure discussed, plan reviewed, VSS [facility] 08-21-2024 Miscellaneous Notes Patient arrived to [facility] after procedure with Anesthesia and supervising nurse, procedure discussed, plan reviewed, VSS OPERATIVE REPORT Patient Name: Barb Estrada Log ID: [id number] Surgery Date: 08/21/2024 * Melani Zaman - [...] 08/21/24 2:21 PM documented in this encounter [facility] Work Phone: 08-21-2024 Note Formatting of this n ote might be different from the original. OPERATIVE REPORT Patient Name: Barb Estrada Log ID: [id number] Surgery Date: 08/21/2024 * Melani Zaman - [...] the procedure(s). Melani Zaman 08/21/24 2:21 PM [facility] Work Phone: 08-21-2024 Attending History and physical [...] ([facility] 12.4) Melani Zaman 08/10/2024 8:59 AM [facility] Work Phone: 08-21-2024 History and physical note [...] 08/10/2024 8:59 AM documented in this encounter [facility] Work Phone: 08-21-2024 Attending History and physical [...] ([facility] 12.4) Melani Zaman 08/10/2024 8:59 AM [facility] Work Phone: 07-24-2024 History of Present illness [...] Zaman will place orders for surgery and sock examiner will reach back with date and details. Darlene Julien CNP 07/24/24 5:13 PM documented in this encounter [facility] Work Phone: 07-07-2024 History of Present illness Narrative Virtual or Telephone Consent: An interactive audio and video telecommunication system which permits real time communications between the patient (at the originating site) and provider (at the distant site) was utilized to provide this telehealth service Post Op Visit Seen Barb Peoria s/p Hysteroscopic myomectomy, Laparoscopic myomectomy, Chromopertubation on [...] 07/07/24 12:08 PM documented in this encounter [facility] Work Phone: 06-26-2024 Miscellaneous Notes Operative Report [...] 06/26/24 1:01 PM documented in this encounter [facility] Work Phone: 06-26-2024 Note Formatting of this [...] to the Operating Room, identified as Barb Natalie. A Time Out was held and the [...] the procedure(s). Melani Zaman 06/26/24 1:01 PM [facility] Work Phone: 06-26-2024 History and physical note [...] anterior uterine body axial T2 haste image 3/18. There is a dominant left-sided fundal region intramural observation estimated about 4 cm image 3/. There are 2 adjacent intracavitary observations including fundal region observation measuring about 15 mm sagittal image /16 and uterine body intracavitary observation measuring about 3 cm image /18. Assessment/Plan Assessment & Plan Intramural, submucous, and [...] the note. Melani Zaman 06/26/24 7:29 AM [facility] Work Phone: 06-26-2024 History and physical note [...] about 5 mm sagittal T2 haste image 4/18.. The endometrium has normal thickness estimated at 3 mm image 4/18. There is distortion of the endometrial widening due to adjacent leiomyomas.. Multiple marginated enhancing observations related to the uterus compatible with leiomyomatous uterus ranging from subserosal to intracavitary. Findings include a subserosal dominant mass measuring about 6 cm right anterior uterine body axial T2 haste image 3/18. There is a dominant left-sided fundal region intramural observation estimated about 4 cm image 3/12. There are 2 adjacent intracavitary observations including fundal region observation measuring about 15 mm sagittal image 4/16 and uterine body intracavitary observation measuring about 3 cm image 4/18. Assessment/Plan Assessment & Plan Intramural, submucous, and [...] 06/26/24 7:29 AM documented in this encounter [facility] Work Phone: 05-18-2024 History of Present illness [...] normal. Dx LSC noted multifibroid uterus and ARBORIST referred the patient for further surgical intervention. Patient also diagnosed previously with PCOS. Have you had any concerns about your fertility treatments so far? What are you goals for today's visit? 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 [...] 05/18/2024 9:02 AM documented in this encounter [facility] Work Phone: 03-12-2024 History of Present illness Narrative Associated Problem(s): Mild intermittent asthma (CMS/HCC) Cont w singulair Fu in 6 months Associated Problem(s): EMILY (iron deficiency anemia) Continues with ferrous sulfate, Will check labs Cont with GI Pt is being referred to [facility] for fibroids removal-end of apr () for [...] (routine) without abnormal findings History of COVID-19 alf current use of inhaled steroid Menorrhagia with [...] 39.9 in adult documented in this encounter [facility] 06-24-2023 Evaluation note Encounter Date Diagnosis Assessment [...] no improvement in 2 to 3 days [facility] Other 11-21-2023 Evaluation note* Encounter Date Diagnosis [...] and rest, Tylenol as directed, rx of [place] and prednisone, OTC Flonase, cool mist humidifier, [...] treatment plan. Patient left in stable condition [facility] Other 03-24-2022 Evaluation note* Encounter Date Diagnosis [...] Patient care instructions given in writting by [facility] document [facility] Other Evaluation noteNo assessment information available [facility] Work Phone: Evaluation note* Diagnosis Uterine leiomyoma, unspecified location- Primary PCOS (polycystic ovarian syndrome) Polycystic ovaries Fertility testing Screening for diabetes mellitus Abnormal uterine bleeding Unspecified disorder of menstruation and other abnormal bleeding from female genital tract documented in this encounter [facility] Work Phone: Evaluation note* Diagnosis Intramural, submucous, and subserous leiomyoma of uterus- Primary Uterine leiomyoma, unspecified location Intramural, submucous, and subserous leiomyoma of uterus documented in this encounter [facility] Work Phone: Evaluation note* Diagnosis Intramural, submucous, and subserous leiomyoma of uterus- Primary Intramural, submucous, and subserous leiomyoma of uterus Post-operative state Other postprocedural status Asthma Unspecified asthma Chronic renal insufficiency Chronic kidney disease, unspecified PCOS (polycystic ovarian syndrome) Polycystic ovaries Obesity Obesity, unspecified documented in this encounter [facility] Work Phone: Evaluation note* Diagnosis Postop check- Primary Follow-up examination, following unspecified surgery documented in this encounter [facility] Work Phone: Evaluation note* Diagnosis Iron deficiency anemia, unspecified iron deficiency anemia type- Primary Class 2 obesity due to excess calories without serious comorbidity with body mass index (BMI) of 39.0 to 39.9 in adult Mild intermittent asthma, unspecified whether complicated (CMS/HCC) documented in this encounter [facility] HealthcareEvaluation note* Diagnosis Iron deficiency anemia, unspecified iron deficiency anemia type- Primary documented in this encounter [facility] note* Diagnosis Intramural, submucous, and subserous leiomyoma of uterus- Primary Encounter for preprocedural laboratory examination documented in this encounter [facility] Work Phone: Evaluation note* Diagnosis Encounter for [...] whether complicated (CMS/HCC) documented in this encounter [facility]Evaluation note* Diagnosis Submucous uterine fibroid- Primary Submucous uterine fibroid Post-operative state Other postprocedural status Class 2 obesity in adult documented in this encounter [facility] Work Phone: Evaluation note* Diagnosis Encounter for [...] Mild intermittent asthma, unspecified whether complicated (CMS/HCC) Iron deficiency anemia, unspecified iron deficiency anemia type documented in this encounter [facility]Evaluation note* Diagnosis Encounter for wellness examination [...] Mild intermittent asthma, unspecified whether complicated (CMS/HCC) Encounter for wellness examination in adult- Primary Morbid (severe) obesity due to excess calories (CMS/HCC) Body mass index (BMI) 39.0-39.9, adult Mild intermittent asthma without complication (CMS/HCC) Insulin resistance Other abnormal glucose PCOS (polycystic ovarian syndrome) Polycystic ovaries Iron deficiency anemia, unspecified iron deficiency anemia type Elevated blood pressure reading Elevated blood pressure reading without diagnosis of hypertension documented in this encounter [facility]Evaluation note* Diagnosis PCOS (polycystic ovarian syndrome)- Primary Polycystic ovaries Postop check Follow-up examination, following unspecified surgery documented in this encounter [facility] Work Phone: Evaluation note* Diagnosis Encounter for wellness examination in adult- Primary Mild intermittent asthma, unspecified whether complicated (CMS/HCC) BMI 40.0-44.9, adult (CMS/[facility]) Elevated blood pressure reading Elevated blood [...] adult Mild intermittent asthma, unspecified whether complicated (CMS/[facility]) Encounter for wellness examination in adult- Primary Morbid (severe) obesity due to excess calories (CMS/HCC) Body mass index (BMI) 39.0-39.9, adult Mild intermittent asthma without complication (CMS/HCC) Insulin resistance Other abnormal glucose PCOS (polycystic ovarian syndrome) Polycystic ovaries Iron deficiency anemia, unspecified iron deficiency anemia type Elevated blood pressure reading Elevated blood pressure reading without diagnosis of hypertension Well woman exam with routine gynecological exam Routine gynecological examination Screen for STD (sexually transmitted disease) Screening examination for venereal disease documented in this encounter [facility] HealthcareEvaluation note* Diagnosis Encounter for wellness examination in adult- Primary Mild intermittent asthma, unspecified whether complicated (CMS/HCC) BMI 40.0-44.9, adult (CMS/[facility]) Elevated blood pressure reading Elevated blood pressure reading without diagnosis of hypertension Iron deficiency anemia, unspecified iron deficiency anemia type- Primary Elevated blood pressure reading Elevated blood pressure reading without diagnosis of hypertension Menorrhagia with regular cycle Class 3 severe obesity due to excess calories without serious comorbidity with body mass index (BMI) of 40.0 to 44.9 in adult Iron deficiency anemia, unspecified iron deficiency anemia type- Primary Class 2 obesity due to excess calories without serious comorbidity with body mass index (BMI) of 39.0 to 39.9 in adult Mild intermittent asthma, unspecified whether complicated (CMS/HCC) Encounter for wellness examination in adult- Primary Morbid (severe) obesity due to excess calories (CMS/HCC) Body mass index (BMI) 39.0-39.9, adult Mild intermittent asthma without complication (CMS/HCC) Insulin resistance Other abnormal glucose PCOS (polycystic ovarian syndrome) Polycystic ovaries Iron deficiency anemia, unspecified iron deficiency anemia type Elevated blood pressure reading Elevated blood pressure reading without diagnosis of hypertension ASCUS with positive high risk HPV cervical documented in this encounter [facility]* [...] (BMI) of 40.0 to 44.9 in adult Iron deficiency anemia, unspecified iron deficiency anemia type- Primary Class 2 obesity due to excess calories without serious comorbidity with body mass index (BMI) of 39.0 to 39.9 in adult Mild intermittent asthma, unspecified whether complicated (CMS/HCC) Encounter for wellness examination in adult- Primary Morbid (severe) obesity due to excess calories (CMS/HCC) Body mass index (BMI) 39.0-39.9, adult Mild intermittent asthma without complication (CMS/HCC) Insulin resistance Other abnormal glucose PCOS (polycystic ovarian syndrome) Polycystic ovaries Iron deficiency anemia, unspecified iron deficiency anemia type Elevated blood pressure reading Elevated blood pressure reading without diagnosis of hypertension Mild intermittent asthma, unspecified whether complicated (CMS/HCC) [...] (BMI) of 40.0 to 44.9 in adult Iron deficiency anemia, unspecified iron deficiency anemia type- Primary Class 2 obesity due to excess calories without serious comorbidity with body mass index (BMI) of 39.0 to 39.9 in adult Mild intermittent asthma, unspecified whether complicated (CMS/[facility]) Encounter for wellness examination in adult- Primary Morbid (severe) obesity due to excess calories (CMS/HCC) Body mass index (BMI) 39.0-39.9, adult Mild intermittent asthma without complication (CMS/[facility]) Insulin resistance Other abnormal glucose PCOS (polycystic ovarian syndrome) Polycystic ovaries Iron deficiency anemia, unspecified iron deficiency anemia type Elevated blood pressure reading Elevated blood pressure reading without diagnosis of hypertension Iron deficiency anemia, unspecified iron deficiency anemia type- Primary Anemia due to other cause, not classified documented in this encounter [facility] HealthcareEvaluation note* Diagnosis Encounter for wellness examination in adult- Primary Mild intermittent asthma, unspecified whether complicated (HCC) BMI 40.0-44.9, adult (CMS-HCC) Elevated blood pressure reading Elevated blood pressure reading without diagnosis of hypertension Iron deficiency anemia, unspecified iron deficiency anemia type- Primary Elevated blood pressure reading Elevated blood pressure reading without diagnosis of hypertension Menorrhagia with regular cycle Class 3 severe obesity due to excess calories without serious comorbidity with body mass index (BMI) of 40.0 to 44.9 in adult (CMS-HCC) Iron deficiency anemia, unspecified iron deficiency anemia type- Primary Class 2 obesity due to excess calories without serious comorbidity with body mass index (BMI) of 39.0 to 39.9 in adult Mild intermittent asthma, unspecified whether complicated (HCC) Encounter for wellness examination in adult- Primary Morbid (severe) obesity due to excess calories (CMS-HCC) Body mass index (BMI) 39.0-39.9, adult Mild intermittent asthma without complication (HCC) Insulin resistance Other abnormal glucose PCOS (polycystic ovarian syndrome) Polycystic ovaries Iron deficiency anemia, unspecified iron deficiency anemia type Elevated blood pressure reading Elevated blood pressure reading without diagnosis of hypertension Candidiasis of breast- Primary documented in this encounter [facility]* Diagnosis Encounter for wellness examination in adult- Primary Mild intermittent asthma, unspecified whether complicated (HCC) BMI 40.0-44.9, adult ([facility]) Elevated blood pressure reading Elevated blood pressure reading without diagnosis of hypertension Iron deficiency anemia, unspecified iron deficiency anemia type- Primary Elevated blood pressure reading Elevated blood pressure reading without diagnosis of hypertension Menorrhagia with regular cycle Class 3 severe obesity due to excess calories without serious comorbidity with body mass index (BMI) of 40.0 to 44.9 in adult ([facility]) Iron deficiency anemia, unspecified iron deficiency anemia type- Primary Class 2 obesity due to excess calories without serious comorbidity with body mass index (BMI) of 39.0 to 39.9 in adult Mild intermittent asthma, unspecified whether complicated (HCC) Encounter for wellness examination in adult- Primary Morbid (severe) obesity due to excess calories ([facility]) Body mass index (BMI) 39.0-39.9, adult Mild intermittent asthma without complication (HCC) Insulin resistance Other abnormal glucose PCOS (polycystic ovarian syndrome) Polycystic ovaries Iron deficiency anemia, unspecified iron deficiency anemia type Elevated blood pressure reading Elevated blood pressure reading without diagnosis of hypertension Poison carlos- Primary Contact dermatitis and other eczema due to plants (except food) documented in this encounter [facility]* Diagnosis Encounter for wellness examination in adult- Primary Mild intermittent asthma, unspecified whether complicated (HCC) BMI 40.0-44.9, adult ([facility]) Elevated blood pressure reading Elevated blood pressure reading without diagnosis of hypertension Iron deficiency anemia, unspecified iron deficiency anemia type- Primary Elevated blood pressure reading Elevated blood pressure reading without diagnosis of hypertension Menorrhagia with regular cycle Class 3 severe obesity due to excess calories without serious comorbidity with body mass index (BMI) of 40.0 to 44.9 in adult ([facility]) Iron deficiency anemia, unspecified iron deficiency anemia type- Primary Class 2 obesity due to excess calories without serious comorbidity with body mass index (BMI) of 39.0 to 39.9 in adult Mild intermittent asthma, unspecified whether complicated (HCC) Encounter for wellness examination in adult- Primary Morbid (severe) obesity due to excess calories ([facility]) Body mass index (BMI) 39.0-39.9, adult Mild intermittent asthma without complication (HCC) Insulin resistance Other abnormal glucose PCOS (polycystic ovarian syndrome) Polycystic ovaries Iron deficiency anemia, unspecified iron deficiency anemia type Elevated blood pressure reading Elevated blood pressure reading without diagnosis of hypertension Mild intermittent asthma, unspecified whether complicated (HCC) documented in this encounter [facility] HealthcareEvaluation note* Diagnosis Encounter for wellness examination in adult- Primary Mild intermittent asthma, unspecified whether complicated (HCC) BMI 40.0-44.9, adult ([facility]) Elevated blood pressure reading Elevated blood pressure reading without diagnosis of hypertension Iron deficiency anemia, unspecified iron deficiency anemia type- Primary Elevated blood pressure reading Elevated blood pressure reading without diagnosis of hypertension Menorrhagia with regular cycle Class 3 severe obesity due to excess calories without serious comorbidity with body mass index (BMI) of 40.0 to 44.9 in adult ([facility]) Iron deficiency anemia, unspecified iron deficiency anemia type- Primary Class 2 obesity due to excess calories without serious comorbidity with body mass index (BMI) of 39.0 to 39.9 in adult Mild intermittent asthma, unspecified whether complicated (HCC) Encounter for wellness examination in adult- Primary Morbid (severe) obesity due to excess calories ([facility]) Body mass index (BMI) 39.0-39.9, adult Mild intermittent asthma without complication (HCC) Insulin resistance Other abnormal glucose PCOS (polycystic ovarian syndrome) Polycystic ovaries Iron deficiency anemia, unspecified iron deficiency anemia type Elevated blood pressure reading Elevated blood pressure reading without diagnosis of hypertension Rash- Primary Rash and other nonspecific skin eruption documented in this encounter [facility] HealthcareHistory general Narrative - Reported* Type Description Date Medical History asthma Surgical History cyst removal 2004 Hospitalization History See Above Hospitalization History covid 2020 [facility] Other Reason for visit Narrative* Imaging (Routine) - Authorized Specialty Diagnoses / Procedures Referred By Rhoda hewitt Referred To Contact Radiology Diagnoses Uterine leiomyoma, unspecified location Procedures MR pelvis w and wo IV contrast MR pelvis w and wo IV contrast Melani Zaman MD [address] [place] [address] Phone: tel: fax: Referral ID Status Reason Start Date Expiration Date Visits Requested Visits Authorized [id number] Authorized Perform Procedure 4 05/18/2025 1 1 [facility] Work Phone: Reason for visit Narrative* Auth/Cert Specialty Diagnoses / Procedures Referred By Rhoda hewitt Referred To Contact Diagnoses Intramural, submucous, and subserous leiomyoma of uterus Intramural, submucous, and subserous leiomyoma of uterus [D25.1, D25.0, D25.2] Procedures AZ LAPS MYOMECTOMY EXC 5/> MYOMAS >250 GRAMS AZ CHROMOTUBATION OVIDUCT W/MATERIALS AZ HYSTEROSCOPY DIAGNOSTIC SEPARATE PROCEDURE Laparoscopic Myomectomy Exploration Laparoscopy; Bilateral Chromopertubation Diagnostic Hysteroscopy Melani Zaman MD [address] [place] [address] Phone: tel: fax: [facility] [place] [address] [place] [address] fax: Referral ID Status Reason Start Date Expiration Date Visits Re quested Visits Authorized [id number] 1 1 [facility] Work Phone: reason for visit Narrative* Imaging (Routine) - Authorized Specialty Diagnoses / Procedures Referred By Rhoda hewitt Referred To Contact Radiology Diagnoses Intramural, submucous, and subserous leiomyoma of uterus Procedures US sonohysterogram Melani Zaman MD [address] [facility] [place] [address] Phone: tel: fax: Referral ID Status Reason Start Date Expiration Date Visits Requested Visits Authorized [id number] Authorized Perform Procedure 06/26/2024 06/26/2025 1 1 [facility] Work Phone: reason for visit Narrative* Auth/Cert Specialty Diagnoses / Procedures Referred By Rhoda hewitt Referred To Contact Diagnoses Submucous uterine fibroid Submucous uterine fibroid [D25.0] Procedures AZ HYSTEROSCOPY REMOVAL LEIOMYOMATA Hysteroscopy; Uterine Myomectomy Melani Zaman MD [address] [place] [address] Phone: tel: fax: [facility] [place] [address] [place] [address] fax: Referral ID Status Reason Start Date Expiration Date Visits Re quested Visits Authorized [id number] 1 1 [facility] Work Phone: Summary Purpose Family History Relationship Condition Age at Onset Recorded Date/T boubacar father Hypertension Unknown Advance Directives Date Activated Date Inactivated Comments 06/26/2024 6:10 [...] Med Refill 08/13/2024 Reason Comments Med Refill Reason Comments Gynecologic Exam Reason Comments Colposcopy INFORMATION SOURCE (unrecogn ized section and content) DATE CREATED AUTHOR 08/03/2022 [facility] DATE CREATED AUTHOR AUTHOR'S ORGANIZ ATION 08/20/2024 [facility] DATE CREATED AUTHOR AUTHOR'S ORGANIZ ATION 08/28/2024 [facility] DATE CREATED AUTHOR AUTHOR'S ORGANIZ ATION 09/21/2024 [facility] DATE CREATED AUTHOR AUTHOR'S ORGANIZ ATION 10/14/2024 [facility] EPIC DATE CREATED AUTHOR AUTHOR'S ORGANIZ ATION 10/15/2024 [facility] Care Teams (unrecognized sec tion and content) [...] January 24, 2024 End: January 24, 2024 Director Regulatory Compliance Relationship Specialty Start Date End Date Cathy Wood LPN Licensed Practical Nurse 05/18/24 Director Regulatory Compliance Relationship Specialty Start Date End Date Lucinda Rodriguez APRN-DYNAMOMETER TUNER [address] [place] [phone] PCP - General 06/03/24 Cathy Wood LPN Licensed Practical Nurse 05/18/24 Director Regulatory Compliance Relationship Specialty Start Date End Date Katlyn Damon MD [address] [place] [address] PCP - External PCP Family Medicine 12/29/22 Chet Guajardo MD [address] [place] [address] PCP - General Family Medicine 10/01/23 Lucinda Rodriguez NP [address] [place] [address] PCP - [facility] 10/21/23 Lucinda Rodriguez NP [address] [place] [address] Nurse Practitioner Family Medicine 10/01/23 Director Regulatory Compliance Relationship Specialty Start Date End Date Lucinda Rodriguez APRN-DYNAMOMETER TUNER [address] [place] [address] PCP - General 06/03/24 Cathy Wood LPN Licensed Practical Nurse 05/18/24 Director Regulatory Compliance Relationship Specialty Start Date End Date Lucinda Rodriguez APRN-DYNAMOMETER TUNER [address] [place] [address] PCP - General 06/03/24 Cathy Wood LPN Licensed Practical Nurse 05/18/24 Director Regulatory Compliance Relationship Specialty Start Date End Date Katlyn Damon MD [address] [phone] PCP - External PCP Family Medicine 12/29/22 Chet Guajardo MD [address] [place] [address] PCP - General Family Medicine 10/01/23 Lucinda Rodriguez NP [address] [place] [address] [facility] 10/21/23 Lucinda Rodriguez NP [address] [place] [address] Nurse Practitioner Family Medicine 10/01/23 Director Regulatory Compliance Relationship Specialty Start Date End Date Katlyn Damon MD [address] [phone] PCP - External PCP Family Medicine 12/29/22 Chet Guajardo MD [address] [place] [address] PCP - General Family Medicine 10/01/23 Lucinda Rodriguez NP [address] [place] [address] PCP - [facility] 10/21/23 Lucinda Rodriguez NP [address] [place] [address] Nurse Practitioner Family Medicine 10/01/23 Director Regulatory Compliance Relationship Specialty Start Date End Date Katlyn Damon MD [address] [phone] PCP - External PCP Family Medicine 12/29/22 Chet Guajardo MD [address] [place] [address] PCP - General Family Medicine 10/01/23 Lucinda Rodriguez NP [address] [place] [address] PCP - [facility] [employer] 10/21/23 Lucinda Rodriguez NP [address] [place] [address] Nurse Practitioner Family Medicine 10/01/23 Director Regulatory Compliance Relationship Specialty Start Date End Date Katlyn Damon MD [address] [place] [address] PCP - External PCP Family Medicine 12/29/22 Chet Guajardo MD [address] [place] [address] PCP - General Family Medicine 10/01/23 Lucinda Rodriguez NP [address] [place] [address] PCP - [facility] 10/21/23 Lucinda Rodriguez NP [address] [place] [address] Nurse Practitioner Family Medicine 10/01/23 Director Regulatory Compliance Relationship Specialty Start Date End Date Katlyn Damon MD [address] [place] [address] PCP - External PCP Family Medicine 12/29/22 Chet Guajardo MD [address] [place] [address] PCP - General Family Medicine 10/01/23 Lucinda Rodriguez NP [address] [place] [address] PCP - [facility] [employer] 10/21/23 Lucinda Rodriguez NP [address] [place] [address] Nurse Practitioner Family Medicine 10/01/23 Director Regulatory Compliance Relationship Specialty Start Date End Date Lucinda Rodriguez BUILDING ADMIN-DYNAMOMETER TUNER [address] [place] [address] PCP - General 06/03/24 Cathy Wood LPN Licensed Practical Nurse 05/18/24 Director Regulatory Compliance Relationship Specialty Start Date End Date Katlyn Damon MD [address] [place] [address] PCP - External PCP Family Medicine 12/29/22 Chet Guajardo MD [address] [place] [address] PCP - General Family Medicine 10/01/23 Lucinda Rodriguez NP [address] [place] [address] PCP - [facility] 10/21/23 Lucinda Rodriguez NP [address] [place] [address] Nurse Practitioner Family Medicine 10/01/23 Director Regulatory Compliance Relationship Specialty Start Date End Date Katlyn Damon MD [address] [phone] PCP - External PCP Family Medicine 12/29/22 Chet Guajardo MD [address] [place] [address] PCP - General Family Medicine 10/01/23 Lucinda Rodriguez NP [address] [place] [address] PCP - [facility] [employer] 10/21/23 Lucinda Rodriguez NP [address] [place] [address] Nurse Practitioner Family Medicine 10/01/23 Director Regulatory Compliance Relationship Specialty Start Date End Date Katlyn Damon MD [address] [phone] PCP - External PCP Family Medicine 12/29/22 Chet Guajardo MD [address] [place] [address] PCP - General Family Medicine 10/01/23 Lucinda Rodriguez NP [address] [place] [address] PCP - [facility] 10/21/23 Lucinda Rodriguez NP [address] [place] [address] Nurse Practitioner Family Medicine 10/01/23 Director Regulatory Compliance Relationship Specialty Start Date End Date Katlyn Damon MD [address] [place] [address] PCP - External PCP Family Medicine 12/29/22 Chet Guajardo MD [address] [place] [address] PCP - General Family Medicine 10/01/23 Lucinda Rodriguez NP [address] [place] [address] PCP - [facility] [employer] 10/21/23 Lucinda Rodriguez NP [address] [place] [address] Nurse Practitioner Family Medicine 10/01/23 Director Regulatory Compliance Relationship Specialty Start Date End Date Lucinda Rodriguez, BUILDING ADMIN-DYNAMOMETER TUNER [address] [place] [address] PCP - General 06/03/24 Cathy Wood LPN Licensed Practical Nurse 05/18/24 Director Regulatory Compliance Relationship Specialty Start Date End Date Katlyn Damon MD [address] [place] [address] PCP - External PCP Family Medicine 12/29/22 Chet Guajardo MD [address] [place] [address] PCP - General Family Medicine 10/01/23 Lucinda Rodriguez NP [address] [place] [address] PCP - [facility] [employer] 10/21/23 Lucinda Rodriguez NP [address] [place] [address] Nurse Practitioner Family Medicine 10/01/23 Director Regulatory Compliance Relationship Specialty Start Date End Date Katlyn Damon MD [address] [place] [address] PCP - External PCP Family Medicine 12/29/22 Chet Guajardo MD [address] [place] [address] PCP - General Family Medicine 10/01/23 Lucinda Rodriguez NP [address] [place] [address] PCP - [employer] 10/21/23 Lucinda Rodriguez NP [address] [place] [address] Nurse Practitioner Family Medicine 10/01/23 Director Regulatory Compliance Relationship Specialty Start Date End Date Katlyn Damon MD [address] [place] [address] PCP - External PCP Family Medicine 12/29/22 Chet Guajardo MD [address] [place] [address] PCP - General Family Medicine 10/01/23 Lucinda Rodriguez NP [address] [place] [address] PCP - [facility] 10/21/23 Lucinda Rodriguez NP [address] [place] [address] Nurse Practitioner Family Medicine 10/01/23 Team Status: Inactive Member Role Status Dates Abel Alvarez DO Attending Provider Active Start : October 13, 2024 End: October 13, 2024 Director Regulatory Compliance Relationship Specialty Start Date End Date Katlyn Damon MD [address] [place] [address] PCP - External PCP Family Medicine 12/29/22 Chet Guajardo MD [address] [place] [address] PCP - General Family Medicine 10/01/23 Lucinda Rodriguez NP [address] [place] [address] PCP - [employer] 10/21/23 Lucinda Rodriguez NP [address] [place] [address] Nurse Practitioner Family Medicine 10/01/23 Director Regulatory Compliance Relationship Specialty Start Date End Date Katlyn Damon MD [address] [place] [address] PCP - External PCP Family Medicine 12/29/22 Chet Guajardo MD [address] [place] [address] PCP - General Family Medicine 10/01/23 Lucinda Rodriguez NP [address] [place] [address] PCP - [facility] 10/21/23 Lucinda Rodriguez NP [address] [place] [address] Nurse Practitioner Family Medicine 10/01/23 Director Regulatory Compliance Relationship Specialty Start Date End Date Katlyn Damon MD [address] [place] [address] PCP - External PCP Family Medicine 12/29/22 Chet Guajardo MD [address] [place] [address] PCP - General Family Medicine 10/01/23 Lucinda Rodriguez NP [address] [place] [address] PCP - [employer] 10/21/23 Lucinda Rodriguez NP [address] [place] [address] Nurse Practitioner Family Medicine 10/01/23 Director Regulatory Compliance Relationship Specialty Start Date End Date Katlyn Damon MD [address] [place] [address] PCP - External PCP Family Medicine 12/29/22 Chet Guajardo MD [address] [place] [address] PCP - General Family Medicine 10/01/23 Lucinda Rodriguez NP [address] [place] [address] PCP - [employer] 10/21/23 Lucinda Rodriguez NP [address] [place] [address] Nurse Practitioner Family Medicine 10/01/23 Director Regulatory Compliance Relationship Specialty Start Date End Date Katlyn Damon MD [address] [place] [address] PCP - External PCP Family Medicine 12/29/22 Chet Guajardo MD [address] [place] [address] PCP - General Family Medicine 10/01/23 Lucinda Rodriguez NP [address] [place] [address] PCP - [facility] 10/21/23 Lucinda Rodriguez NP [address] [place] [address] Nurse Practitioner Family Medicine 10/01/23 Goals (unrecognized section and content) Goals may [...] pain scores based on patient preference? Yes 0638 (Given - Provid er: Luly Salas [...] 1131, Intraprocedure 1131 (Given - Provid er: Melani Zaman MD - Comment: normal saline hysteroscopic [...] BE BASED ON THE PRIMARY CLINICAL RECORDS. [employer] [facility]. provides no warranty or guarantee of the accuracy or completeness of information in this document.
[2025-03-08 07:20] LABS: Hematocrit 35.9 % (36.0-48.0); Hemoglobin 12.1 g/dL (12.0-16.0); Immature Granulocytes Abs Auto 0.00 10^3/uL (0.00-0.03); Immature Granulocytes Pct Auto 0.0 % (0.0-0.5); Lymphocytes Absolute Auto 2.3 10^3/uL (1.2-3.8); Mean Corpuscular HGB Conc 33.7 g/dL (29.9-35.2); Mean Corpuscular Hemoglobin 30.2 pg (26.7-34.0); Mean Corpuscular Volume 89.5 fL (81.0-99.0); Platelet Count 289 10^3/uL (150-450); Red Blood Count 4.01 10^6/uL (4.20-5.40); White Blood Count 7.7 10^3/uL (4.0-11.0)
[2025-03-08 09:42] LABS: Iron 71.0 ug/dL (50.0-170.0)
[2025-03-08 10:48] LABS: Ferritin 121.0 ng/mL (8.0-252.0)
[2025-03-09 04:07] LABS: Vitamin B12 406 pg/mL (232-1245)
== END 2025-03-08 06:40 | disposition home or self-care (01) ==
LOC: LAB 06:40
PROVIDERS: PCP Nurse Practitioner; Visit Provider Nurse Practitioner
DX: D50.9 Iron deficiency anemia, unspecified (principal); D64.89 Other specified anemias
CPT/HCPCS: 36415; 82607; 82728; 83540; 85025

== ENCOUNTER 2025-05-03 20:56 | Outpatient (REF) | payer BC, SELFPAY ==
--- OUTSIDE RECORDS SUMMARY | 2025-05-03 10:40 | XMS_ITS | Encounter Summary ---
Author Organization [facility] Address [address] [facility] [place] [address] Care Team Providers Care Hedge Trimmer Name Role Phone Katlyn Damon MD Unavailable [phone] Chet Guajardo MD Primary Care Provider [phone] Lucinda Rodriguez NP Unavailable [phone] Lucinda Rodriguez PERMASTONE INSTALLER Unavailable [phone] Reason for Visit * Reason Comments Gynecologic Exam Encounter Details Date Type Department Care Team (Late st Contact Info) Description 05/03/2025 10:40 AM EDT Procedure Visit [facility] [place] [facility] [address] [place] [address] Abel Alvarez DO [address] [place], [place] [id number] ASCUS with positive high risk HPV cervical; Encounter for repeat Papanicolaou smear of cervix; Vaginal discharge; Vaginal itching Social History Tobacco Use Types Packs/Day Years Used Date Smoking Tobacco: Never Smokeless Tobacco: Never Alcohol Use Standard Drinks/Week Comments Yes 0 (1 standard drink = 0.6 oz pur e alcohol) occasional alcohol use B1300 Health Literacy Answer Date Recor ded How often do you need to hav e someone help you when you read instructions, pamphlets, or other written material from your doctor or pharmacy? Never 09/10/2024 Humiliation, Afraid, Rape, and Kick questionnair e Answer Date Recorded Within the last year, have y ou been afraid of your partner or ex-partner? No 08/12/2023 Within the last year, have y ou been humiliated or emotionally abused in other ways by your partner or ex-partner? No Within the last year, have y ou been kicked, hit, slapped, or otherwise physically hurt by your partner or ex-partner? No 08/12/2023 Within the last year, have y ou been raped or forced to have any kind of sexual activity by your partner or ex-partner? No 08/12/2023 Social Connection and Isolation Panel Answer Date Recorded In a typical week, how many times do you talk on the phone with family, friends, or neighbors? More than three times a week 09/10/2024 How often do you get togethe r with friends or relatives? More than three times a week 09/10/2024 How often do you attend chur or roman catholic services? 1 to 4 times per year 09/10/2024 Do you belong to any clubs o r organizations such as anglican groups, unions, fraternal or athletic groups, or school groups? No 09/10/2024 How often do you attend meet ings of the clubs or organizations you belong to? Never 09/10/2024 Are you , , di vorced, , never , or living with a partner? Never 09/10/2024 AUDIT-C Answer Date Recorded Q1: How often do you have a drink containing alc ohol? 2-4 times a month 09/10/2024 Q2: How many drinks containi ng alcohol do you have on a typical day when you are drinking? 3 or 4 09/10/2024 Q3: How often do you have si x or more drinks on one occasion? Never 09/10/2024 Overall Financial Resource Strain (CARDIA) Answe r Date Recorded How hard is it for you to pa y for the very basics like food, housing, medical care, and heating? Not very hard 09/10/2024 PHQ-2 Answer Date Recorded Patient Health Questionnaire-2 Score 0 10/01/2023 [facility] - Occupational Stress Questionnaire Answer Date Recorded Do you feel stress - tense, restless, nervous, or anxious, or unable to sleep at night because your mind is troubled all the time - these days? Not at all 09/10/2024 Exercise Vital Sign Answer Date Recorde d On average, how many days pe r week do you engage in moderate to strenuous exercise (like a brisk walk)? 0 days 09/10/2024 On average, how many minutes do you engage in exercise at this level? 0 min 09/10/2024 Hunger Vital Sign Answer Date Recorded Within the past 12 months, y ou worried that your food would run out before you got the money to buy more. Never true 09/10/19 25 Within the past 12 months, t he food you bought just didn't last and you didn't have money to get more. Never true 09/10/2024 PRAPARE - Transportation Answer Date Re corded In the past 12 months, has l ack of transportation kept you from medical appointments or from getting medications? No 08/23 In the past 12 months, has l ack of transportation kept you from meetings, work, or from getting things needed for daily living? No 09/10/2024 Housing Stability Vital Sign Answer Kirit e Recorded In the last 12 months, was t here a time when you were not able to pay the mortgage or rent on time? No 08/12/2023 In the last 12 months, how many places have you lived? 1 08/12/2023 In the last 12 months, was t here a time when you did not have a steady place to sleep or slept in a detention (including now)? No 08/12/2023 Housing Stability Vital Sign Answer Kirit e Recorded In the last 12 months, was t here a time when you were not able to pay the mortgage or rent on time? No 09/10/2024 In the past 12 months, how m any times have you moved where you were living? 0 09/10/2024 At any time in the past 12 m [facility], were you homeless or living in a detention (including now)? No 09/10/2024 Comments No Sex and Gender Information Value Date Recorded Sex Assigned at Not on file Legal Sex Female 8:00 PM EDT Gender Identity Not on file Sexual Orientation Not on file documented as of this encounter Last Filed Vital Signs Vital Sign Reading Time Taken Comments Blood Pressure 140/82 05/03/2025 11:00 AM EDT Pulse - - Temperature - - Respiratory Rate - - Oxygen Saturation - - Inhaled Oxygen Concentration - - Weight 111 kg (243 lb 11.2 oz) 05/03/2025 11:00 AM EDT Height 165.1 cm (5' 5 ) 05/03/2025 11:00 AM EDT Body Mass Index 40.55 05/03/2025 11:00 AM EDT documented in this encounter Progress Notes * Ira Bentley NP - 05/03/2025 10:40 AM EDT Reason for Appointment: Patient ID: Barb Estrada is a 35 y.o. female who presents for Gynecologic Exam Patient presents today for Repeat Pap. MEDICATIONS Current Outpatient Medications Medication Instructions albuterol HFA 90 mcg/act inhaler 2 puffs, Inhalation, Every 6 hours PRN ethynodiol-ethinyl estradiol (Kelnor, Zovia) 1-35 MG-MCG tablet 1 tablet, Oral, Daily RT metFORMIN XR (GLUCOPHAGE-XR) 500 mg, Oral, Daily with evening meal, Do not crush, chew, or split. montelukast (SINGULAIR) 10 mg, Oral, Nightly ALLERGIES Allergies Allergen Reactions Cat Dander PROBLEMS Active Ambulatory Problems Diagnosis Date Noted History of COVID-19 07/25/2023 Mild intermittent asthma (HCC) 07/25/2023 Menorrhagia with regular cycle 08/22/2023 Encounter for wellness examination in adult 08/22/2023 Elevated blood pressure reading 08/22/2023 Other specified anemias 09/17/2023 Hypertriglyceridemia 09/18/2023 EMILY (iron deficiency anemia) 09/20/2023 Insulin resistance 10/14/2023 Abnormal menstrual cycle 10/14/2023 Fibroids 12/25/2023 Episode of heavy vaginal bleeding 12/25/2023 Morbid (severe) obesity due to excess calories ([facility]) 03/12/2024 Body mass index (BMI) 39.0-39.9, adult 09/10/2024 PCOS (polycystic ovarian syndrome) 06/26/2024 Intramural, submucous, and subserous leiomyoma of uterus 05/18/2024 Candidiasis of breast 01/04/2025 Rash 02/09/2025 Resolved Ambulatory Problems Diagnosis Date Noted Sinus tachycardia 07/25/2023 BMI 40.0-44.9, adult ([facility] 08/22/2023 Class 3 severe obesity with body mass index (BMI) of 40.0 to 44.9 in adult ([facility]) 10/01/2023 Poison carlos 02/01/2025 Past Medical History: Diagnosis Date Encounter for gynecological examination (general) (routine) without abnormal findings USP current use of inhaled steroid Yeast infection HISTORY PAST MEDICAL HISTORY SOCIAL HISTORY Past Medical History: Diagnosis Date Encounter for gynecological examination (general) (routine) without abnormal findings History of COVID-19 USP current use of inhaled steroid Menorrhagia with regular cycle Mild intermittent asthma ([facility]) Sinus tachycardia Yeast infection Social History Tobacco [...] Constitutional: Appearance: Normal appearance. She is well-developed. Cardiovascular: Rate and Rhythm: Normal rate and [...] nursing note reviewed. Exam conducted with a casing wringer operator present. Vitals: Estimated body mass index is 40.55 kg/m?? as calculated from the following: Height as of this encounter: 5' 5 . Weight as of this encounter: 243 lb 11.2 oz. BP: 140/82 No LMP recorded. ASSESSMENT & PLAN ICD-10-CM 1. ASCUS with positive high risk HPV cervical R87.610 Pap Smear R87.810 2. Encounter for repeat Papanicolaou smear of cervix Z12.4 Pap Smear 3. Vaginal discharge N89.8 CHLAMYDIA TRACHOMATIS (GENITO/STI) Neisseria gonorrhea DNA probe, direct SURESWAB(R) ADVANCED VAGINITIS PLUS, TMA CANCELED: SURESWAB(R) ADVANCED VAGINITIS PLUS, TMA 4. Vaginal itching N89.8 CHLAMYDIA TRACHOMATIS (GENITO/STI) Neisseria gonorrhea DNA probe, direct SURESWAB(R) ADVANCED VAGINITIS PLUS, TMA CANCELED: SURESWAB(R) ADVANCED VAGINITIS PLUS, TMA Repeat Pap: Patient presents today for a repeat pap. Previous pap results were reviewed and noted to be ASCUS and + HPV. Question regarding previous results were discussed. Repeat Pap was obtained without difficulty. Follow Up: Patient is to return to the office as advised following return of results from today's appointment. Documented by Ira Bentley NP on behalf of: Abel Alvarez DO documented in this encounter Plan of Treatment Upcoming Encounters Date Type Department Care Team (Late st Contact Info) Description 09/29/2025 1:00 PM EDT Office Visit [facility] [address] [place] [id number] Abel Alvarez DO [address] [place], [place] [id number] Scheduled Orders Name Type Priority Associated Diagnoses Orde r Schedule Pap Smear Pathology and Cytology Routine ASCUS with positive high risk HPV cervical Encounter for repeat Papanicolaou smear of cervix Ordered: 05/03/2025 CHLAMYDIA TRACHOMATIS (GENITO/STI) Lab Routine Vaginal discharge Vaginal itching Ordered: 05/03/2025 Neisseria gonorrhea DNA probe, direct Lab Routine Vaginal discharge Vaginal itching Ordered: 05/03/2025 SURESWAB(R) ADVANCED VAGINITIS PLUS, TMA Pathology and Cytology Routine Vaginal discharge Vaginal itching Ordered: 05/03/2025 documented as of this encounter Visit Diagnoses Diagnosis ASCUS with positive high risk HPV cervical Encounter for repeat Papanicolaou smear of cervix Vaginal discharge Leukorrhea, not specified as infective Vaginal itching Pruritus of genital organs documented in this encounter Care Teams Hedge Trimmer Relationship Specialty Start Date End Date Katlyn Damon MD [address] [place] [address] PCP - External PCP Family Medicine 12/29/22 Chet Guajardo MD [address] [place] [address] PCP - General Family Medicine 10/01/23 Lucinda Rodriguez NP [address] [place] [address] PCP - [facility] 10/21/23 Lucinda Rodriguez NP [address] [place] [address] Nurse Practitioner Family Medicine 10/01/23 documented as of this encounter
--- OUTSIDE RECORDS SUMMARY | 2025-05-03 21:01 | XMS_ITS | Encounter Summary ---
Author Organization [facility] Address [address] [place] [address] Care Team Providers Care Stacker Tender Name Role Phone Katlyn Damon MD Unavailable [phone] Chet Guajardo MD Primary Care Provider [phone] Lucinda Rodriguez NP Unavailable [phone] Lucinda Rodriguez NP Unavailable [phone] Encounter Details Date Type Department Care Team (Late st Contact Info) Description 06/03/2024 Clinisync Result Encounter [facility] External Department Unsolicited Provider, Generic External Data Social History Tobacco Use Types Packs/Day Years Used Date Smoking Tobacco: Never Smokeless Tobacco: Never Alcohol Use Standard Drinks/Week Comments Yes 0 (1 standard drink = 0.6 oz pur e alcohol) occasional alcohol use Humiliation, Afraid, Rape, and Kick questionnair e [...] neighbors? More than three times a week 08/12/2023 How often do you get togethe r with friends or relatives? More than three times a week 08/12/2023 How often do you attend chur or orthodox services? 1 to 4 times per year 08/12/2023 Do you belong to any clubs o r organizations such as presybeterian groups, unions, fraternal or athletic groups, or school groups? No 08/12/2023 How often do you attend meet ings of the clubs or organizations you belong to? Patient declined 08/12/2023 Are you , , di vorced, , never , or living with a partner? Never 08/12/2023 AUDIT-C Answer Date Recorded Q1: How often do you have a drink containing alc ohol? 2-4 times a month 08/12/2023 Q2: How many drinks containi ng alcohol do you have on a typical day when you are drinking? 3 or 4 08/12/2023 Q3: How often do you have si x or more drinks on one occasion? Never 08/12/2023 Overall Financial Resource Strain (CARDIA) Answe r Date Recorded How hard is it for you to pa y for the very basics like food, housing, medical care, and heating? Not hard at all 08/12/2023 PHQ-2 Answer Date Recorded Patient Health Questionnaire-2 Score 0 10/01/2023 [facility] - Occupational Stress Questionnaire Answer Date Recorded Do you feel stress - tense, restless, nervous, or anxious, or unable to sleep at night because your mind is troubled all the time - these days? Not at all 08/12/2023 Exercise Vital Sign Answer Date Recorde d On average, how many days pe r week do you engage in moderate to strenuous exercise (like a brisk walk)? 0 days 08/12/2023 On average, how many minutes do you engage in exercise at this level? 0 min 08/12/2023 Hunger Vital Sign Answer Date Recorded Within the past 12 months, y ou worried that your food would run out before you got the money to buy more. Never true 08/12/19 24 Within the past 12 months, t he food you bought just didn't last and you didn't have money to get more. Never true 08/12/2023 PRAPARE - Transportation Answer Date Re corded In the past 12 months, has l ack of transportation kept you from medical appointments or from getting medications? No 07/23 In the past 12 months, has l ack of transportation kept you from meetings, work, or from getting things needed for daily living? No 08/12/2023 Housing Stability Vital Sign Answer [...] place to sleep or slept in a chcf (including now)? No 08/12/2023 Comments No Sex and Gender Information Value Date Recorded Sex Assigned at Not on file Legal Sex Female 8:00 PM EDT Gender Identity Not on file Sexual Orientation Not on file documented as of this encounter Plan of Treatment Upcoming Encounters Date Type Department Care Team (Late st Contact Info) Description 09/29/2025 1:00 PM EDT Office Visit [facility] [address] [place] [address] Abel Alvarez DO [address] [place], [place] [id number] documented as of this encounter Procedures Procedure Name Priority Date/Time Associated Diagnosis Comments MR PELVIS W AND WO CONTRAST 06/03/2024 1:00 PM EST documented in this encounter Results * MR pelvis w and wo contrast (06/03/2024 1:00 PM EST) Anatomical Region Laterality Modality Body, Pelvis Magnetic Resonan ce 06/03/2024 1:00 PM EST Narrative 06/03/2024 2:50 PM EST Interpreted By: Nicola Multani, STUDY: MR PELVIS W AND WO IV CONTRAST; 06/03/2024 1:37 pm INDICATION: Signs/Symptoms:SENIOR RESEARCH FELLOW diagnosis and treatment planning. ,D25.9 Leiomyoma of uterus, unspecified COMPARISON: None. ACCESSION NUMBER(S): [id number] ORDERING CLINICIAN: CORNELIUS BILLINGSLEY TECHNIQUE: Multiplanar MRI of the pelvis was [...] Nicola Multani 06/03/2024 2:50 PM Dictation workstation: [id number] Procedure Note Radiology, Radiologist, - 06/03/2024 Interpreted By: Nicola Multani, STUDY: MR PELVIS W AND WO IV CONTRAST; 06/03/2024 1:37 pm INDICATION: Signs/Symptoms:SENIOR RESEARCH FELLOW diagnosis and treatment planning. ,D25.9 Leiomyoma of uterus, unspecified COMPARISON: None. ACCESSION NUMBER(S): [id number] ORDERING CLINICIAN: CORNELIUS BILLINGSLEY TECHNIQUE: Multiplanar MRI of the pelvis was [...] Nicola Multani 06/03/2024 2:50 PM Dictation workstation: [id number] us Generic External Data Provider IMG MRI PROCEDURE S Final Result documented in this encounter Visit Diagnoses Not on filedocumented in this encounter Care Teams Stacker Tender Relationship Specialty Start Date End Date Katlyn Damon MD [address] [place] [address] PCP - External PCP Family Medicine 12/29/22 Chet Guajardo MD [address] [place] [address] PCP - General Family Medicine 10/01/23 Lucinda Rodriguez NP [address] [place] [address] PCP - [facility] 10/21/23 Lucinda Rodriguez NP [address] [place] [phone] Nurse Practitioner Family Medicine 10/01/23 documented as of this encounter
--- OUTSIDE RECORDS SUMMARY | 2025-05-03 21:01 | XMS_ITS | Encounter Summary ---
Author Organization [facility] Address [address] [place] [address] Phone Care Team Providers Care Swinging Cut Off Saw Operator Name Role Phone Davidjagdish Cathy Smith YARN DYER Unavailable Unavailab Lucinda Howard SQUASH CENTRE MANAGER-REINSURANCE ANALYST Primary Care Provider Encounter Details Date Type Department Care Team (Latest Contact Info) Description 08/19/2024 Lab Requisition [facility] [address] [place] [address] Melani Zaman MD [address] [facility] Daisy Payan [place], [address] [address] Encounter for other preprocedural examination Social History Tobacco Use Types Packs/Day Years Used Date Smoking Tobacco: Never Passive Smoke Exposure: Never Smokeless Tobacco: Never Alcohol Use Standard Drinks/Week Comments Yes 0 (1 standard drink = 0.6 oz pur e alcohol) PHQ-2 Answer Date Recorded Patient Health Questionnaire-2 Score 0 07/07/2024 Comments No Sex and Gender Information Value Date Recorded Sex Assigned at Female 05/11/2024 12:06 PM EDT Legal Sex Female 1:17 PM EDT Gender Identity Female 05/11/2024 12:06 PM EDT Sexual Orientation Straight 05/11/2024 12 :06 PM EDT COVID-19 Exposure Response Date Recorded In the last 10 days, have yo u been in contact with someone who was confirmed or suspected to have Coronavirus/COVID-19? No / Unsure 08/21/2024 12:18 PM EST documented as of this encounter Functional Status * Question Answer Date of Assessment Author BP 142/88 08/21/2024 2:45 PM Liane Casillas RN Pulse 90 08/21/2024 2:45 PM Liane Casillas RN * Nava Fall Risk Question Answer Date of Assessment Author History of Falling, Immediat e or Within 3 Months 0 08/21/2024 12:21 PM Negin Ruiz RN Secondary Diagnosis 0 08/21/2024 12:21 PM E Negin Lai RN Ambulatory Aid 0 08/21/2024 12:21 PM Negin Liu RN Intravenous Therapy/Heparin Lock 20 08/21/19 12:21 PM Negin Ruiz RN Gait/Transferring 0 08/21/2024 12:21 PM Negin Ruiz RN Mental Status 0 08/21/2024 12:21 PM EST Negin Rossi RN Nava Fall Risk Score 20 08/21/2024 12:21 PM Negin Ruiz RN * Donavan Scale Question Answer Date of Assessment Author Sensory Perceptions 4 08/21/2024 2:19 PM Liane Adams RN Moisture 4 08/21/2024 2:19 PM Liane Casillas RN Activity 4 08/21/2024 2:19 PM Liane Casillas RN Mobility 4 08/21/2024 2:19 PM Liane Casillas RN Nutrition 4 08/21/2024 2:19 PM Liane Casillas RN Friction and Shear 3 08/21/2024 2:19 PM Liane Casillas RN Donavan Scale Score 23 08/21/2024 2:19 PM Liane Casillas RN * Communicable Disease Screening Question Answer Date of Assessment Author Do you have any of the following new or worsening symptoms? None of these 08/21/2024 12:18 PM Negin Ruiz RN * Question Answer Date of Assessment Author Do you feel UNSAFE going sanjiv k to the place where you live? No 08/21/2024 12:20 PM Myron Ruiz RN Are there any apparent signs of injuries/behaviors that could be related to abuse/neglect? No 08/21/2024 12:20 PM Myron Ruiz RN Ask parent or guardian: Are there times when you, your child(shilpa), or any member of your household feel unsafe, harmed, or threatened around persons with whom you know or live? No 08/21/2024 12:20 PM Negin Ruiz RN Have you had any thoughts of harming anyone else? No 08/21/2024 12:20 PM Negin Ruiz RN * Question Answer Date of Assessment Author Medical Gas Delivery Method Bag valve mask 08/21/2024 12:57 PM Vahid Vega RN * Calculated C-SSRS Risk Score (Lifetime/Recent) Answer Date of Assessment Author No Risk Indicated 08/21/2024 12:21 PM Negin Ruiz RN * Odin Suicide Severity Rating Scale (Screener/Recent Self-Report) Question Answer Date of Assessment Author 1. Wish to be (Past 1 Month) No 08/21/2024 12:21 PM Negin Ruiz RN 2. Non-Specific Active Suici hugh Thoughts (Past 1 Month) No 08/21/2024 12:21 PM Jonny Ruiz RN 6. Suicidal Behavior (Lifetime) No 12:21 PM Negin Ruiz RN documented as of this encounter Mental Status * Feature 3: Altered Level of Consciousness Answer Entry Date Author Negative 08/21/2024 3:00 PM Mariam Casillas RN documented in this encounter Plan of Treatment Not on file documented as of this encounter Procedures Procedure Name Priority Date/Time Associated Diagnosis Comments TYPE AND SCREEN Routine 08/18/2024 12:34 PM EST Encounter for other preprocedural examination documented in this encounter Results * Type And Screen (08/18/2024 12:34 PM EST) ABO TYPE O 08/19/2024 6:16 AM [facility] Rh TYPE POS 08/19/2024 6:16 AM EST [facility] ANTIBODY SCREEN NEG 6:16 AM EST [facility] Blood Venous blood specimen / Unknown 08/18/2024 12:34 PM EST 08/19/2024 6:13 AM EST us Melani Zaman MD LAB BLOOD BANK TEST ORDERABLE S Final Result Performing Organization Address City/State/[facility] Co de Phone Number [facility] [address] [place] [address], documented in this encounter Visit Diagnoses Diagnosis Encounter for other preprocedural examination documented in this encounter Additional Health Concerns Assessment Noted Time A fall risk assessment has been complete d for the patient 07/07/2024 11:32 AM EST documented as of this encounter Care Teams Swinging Cut Off Saw Operator Relationship Specialty Start Date End Date Lucinda Rodriguez, SQUASH CENTRE MANAGER-REINSURANCE ANALYST [address] [place] [address] PCP - General 06/03/24 Cathy Wood LPN Licensed Practical Nurse 05/18/24 documented as of this encounter
--- OUTSIDE RECORDS SUMMARY | 2025-05-03 21:01 | XMS_ITS | Encounter Summary ---
Author Organization [facility] Address [address] [place] [address] Phone Care Team Providers Care Brood Hatchery Manager Name Role Phone Davidjagdish Cathy Smith WEATHER STRIP MECHANIC Unavailable Unavailab Lucinda Howard CALENDER MACHINE OPERATOR-CELL REPAIRER Primary Care Provider Encounter Details Date Type Department Care Team (Latest Contact Info) Description 05/19/2024 Lab Requisition [facility] [address] [place] [address] Melani Zaman MD [address] [facility] Daisy Payan Ayden, [address] [address] Encounter for other preprocedural examination Social History Tobacco Use Types Packs/Day Years Used Date Smoking Tobacco: Never Smokeless Tobacco: Never Alcohol Use Standard Drinks/Week Comments Yes 0 (1 standard drink = 0.6 oz pur e alcohol) Comments No Sex and Gender Information Value [...] suspected to have Coronavirus/COVID-19? No / Unsure 05/18/2024 8:41 AM EDT documented as of this encounter Plan of Treatment Not on file documented as of this encounter Procedures Procedure Name Priority Date/Time Associated Diagnosis Comments TYPE AND SCREEN Routine 05/18/2024 10:09 AM EDT Encounter for other preprocedural examination documented in this encounter Results * Type And Screen (05/18/2024 10:09 AM EDT) ABO TYPE O 05/19/2024 10:50 AM EDT [facility] Rh TYPE POS 05/19/2024 10:50 AM EDT [facility] ANTIBODY SCREEN NEG 10:50 AM EDT [facility] Blood Venous blood specimen / Unknown 05/18/2024 10:09 AM EDT 05/19/2024 9:52 AM EDT us Melani aZman MD LAB BLOOD BANK TEST ORDERABLE S Final Result Performing Organization Address City/State/[facility] Co de Phone Number [facility] [address] [place] [address], documented in this encounter Visit Diagnoses Diagnosis Encounter for other preprocedural examination documented in this encounter Care Teams Brood Hatchery Manager Relationship Specialty Start Date End Date Lucinda Rodriguez CALENDER MACHINE OPERATOR-CELL REPAIRER [address] [place] [address] PCP - General 06/03/24 Cathy Wood LPN Licensed Practical Nurse 05/18/24 documented as of this encounter
--- OUTSIDE RECORDS SUMMARY | 2025-05-03 21:01 | XMS_ITS | Encounter Summary ---
Author Organization [facility] Address [address] [place] [address] Care Team Providers Care Associate Quality Engineer Name Role Phone Katlyn Damon MD Unavailable [phone] Chet Guajardo MD Primary Care Provider [phone] Lucinda Rodriguez NP Unavailable [phone] Lucinda Rodriguez NP Unavailable [phone] Encounter Details Date Type Department Care Team (Late st Contact Info) Description 12/25/2023 Abstract [facility] [address] [place] [address] [place] [address] Poly Avila LPN Social History Tobacco Use Types Packs/Day Years [...] 08/12/2023 How often do you attend chur ch or yazdanism services? 1 to 4 times per year 08/12/2023 Do you belong to any clubs o r organizations such as restoration groups, unions, fraternal or athletic groups, or [...] Recorded Patient Health Questionnaire-2 Score 0 10/01/2023 [facility] of Occupat ional Health - Occupational Stress [...] place to sleep or slept in a usp (including now)? No 08/12/2023 Comments No Sex and Gender Information Value Date Recorded Sex Assigned at Not on file Legal Sex Female 8:00 PM EDT Gender Identity Not on file Sexual Orientation Not on file documented as of this encounter Plan of Treatment Upcoming Encounters Date Type Department Care Team (Late st Contact Info) Description 09/29/2025 1:00 PM EDT Office Visit [facility] [address] [facility] [place] [address] Abel Alvarez DO [address] [facility] [place] [address] documented as of this encounter Visit Diagnoses Not on filedocumented in this encounter Care Teams Associate Quality Engineer Relationship Specialty Start Date End Date Katlyn Damon MD [address] [place] [address] PCP - External PCP Family Medicine 12/29/22 Chet Guajardo MD [address] [place] [address] PCP - General Family Medicine 10/01/23 Lucinda Rodriguez NP [address] [place] [address] PCP - [facility] 10/21/23 Lucinda Rodriguez NP [address] [place] [address] Nurse Practitioner Family Medicine 10/01/23 documented as of this encounter
--- OUTSIDE RECORDS SUMMARY | 2025-05-03 21:01 | XMS_ITS | Encounter Summary ---
Author Organization [facility] Address [address] [place] [address] Care Team Providers Care Abstract Clerk Name Role Phone Katlyn Damon MD Unavailable [phone] Chet Guajardo MD Primary Care Provider [phone] Lucinda Rodriguez NP Unavailable [phone] Lucinda Rodriguez NP Unavailable [phone] Encounter Details Date Type Department Care Team (Late st Contact Info) Description 10/17/2023 Clinisync Result Encounter [facility] External Department Unsolicited [...] How often do you attend chur or faith services? 1 to 4 times per year 08/12/2023 Do you belong to any clubs o r organizations such as oriental orthodox groups, unions, fraternal or athletic groups, or [...] Recorded Patient Health Questionnaire-2 Score 0 10/01/2023 [facility] of Occupat ional Health - Occupational Stress [...] place to sleep or slept in a skilled nursing (including now)? No 08/12/2023 Comments No Sex [...] EDT Office Visit [facility] [address] [facility] [place] [address] Jenny Alvarez DO [address] [facility] [place] [address] documented as of this encounter Procedures Procedure Name Priority Date/Time Associated Diagnosis Comments US PELVIS W/ TRANSVAGINAL 10/17/2023 1:47 PM EDT documented in this encounter Results * US PELVIS W/ TRANSVAGINAL (10/17/2023 1:47 PM EDT) Anatomical Region Laterality Modality Other 10/17/2023 1:47 PM EDT Narrative 10/17/2023 1:49 PM EDT The [address] [address] Ultrasound Report Signed Patient: BARB GARIBAY MR#: [id number] : 1990 Acct:[id number] Age/Sex: 33 / F ADM Date: 10/17/23 Loc: [facility] Attending Dr: Jenny Alvarez D.O. Ordering Physician: Jenny Alvarez D.O. Date of Service: 10/17/23 Procedure(s): US pelvis w/ transvaginal Accession Number(s): [id number] cc: Jenny Alvarez D.O.; Chet Guajardo M.D. [place] [address] Patient Name: BARB GARIBAY MRN: [id number] date: 1990 Sex: F Assigned Patient Location: [facility] Current Patient Location: [facility] Accession/Order Number: [id number] Exam Date: 10/17/2023 10:56 Report Date: 10/17/2023 13:47 At the request of: JENNY ALVAREZ Procedure: US pelvis w/ transvaginal EXAMINATION: US pelvis w/ transvaginal HISTORY: HEAVY IRREGULAR PERIODS COMPARISON: No relevant comparison available. FINDINGS: Transabdominal and transvaginal images The uterus is prominent in size, normal in contour, the uterus measures 10.4 x 4.8 x 7.2 cm. the uterus is anteverted, anteflexed. Heterogeneous myometrium with a 1.2 cm hypoechogenic mass in the fundal myometrium The endometrium measures 15 mm, heterogeneous. The right ovary measures 3.0 x 1.8 x 2.9. Normal color flow. Normal subcentimeter follicles. The left ovary is seen on transabdominal imaging only measuring 3.2 x 2.2 x 2.9 cm. Normal color flow US/US pelvis w/ transvaginal IMPRESSION: Heterogeneous myometrium is a 1.2 cm fundal mass. Fibroid is favored Prominent heterogeneous endometrium, correlate with the menstrual cycle Electronically authenticated by: MAREN STEPHENSON Date: 10/17/2023 13:47 Dictated By: Maren Stephenson M.D. Signed By: 10/17/23 1343 DD/ 1344 TD/TT: Grain Wafer Machine Operator: Procedure Note Radiology, Radiologist, MD - 10/17/2023 The [place] [id number] Ultrasound Report Signed Patient: BARB GARIBAY LMR#: [id number] : 1990Acct:[id number] Age/Sex: 33 / FADM Date: 10/17/23 Loc: [facility] Attending Dr: Jenny Alvarez D.O. Ordering Physician: Jenny Alvarez D.O. Date of Service: 10/17/23 Procedure(s): US pelvis w/ transvaginal Accession Number(s): [id number] cc: Jenny Alvarez D.O.; Chet Guajardo M.D. The [address] [address] Patient Name: BARB GARIBAY MRN: [id number] date: 1990 Sex: F Assigned Patient Location: [facility] Current Patient Location: [facility] Accession/Order Number: [id number] Exam Date: 10/17/2023 10:56 Report Date: 10/17/2023 13:47 At the request of: JENNY ALVAREZ Procedure: US pelvis w/ transvaginal EXAMINATION: US pelvis w/ transvaginal HISTORY: HEAVY IRREGULAR PERIODS COMPARISON: No relevant comparison available. FINDINGS: Transabdominal and transvaginal images The uterus is prominent in size, normal in contour, the uterus empqoxxc05.4 x 4.8 x 7.2 cm. the uterus is anteverted, anteflexed. Heterogeneousmyometrium with a 1.2 cm hypoechogenic mass in the fundal myometrium The endometrium measures 15 mm, heterogeneous. The right ovary measures 3.0 x 1.8 x 2.9. Normal color flow. Normal subcentimeter follicles. The left ovary is seen on transabdominal imaging only measuring 3.2 x 2.2x 2.9 cm. Normal color flow US/US pelvis w/ transvaginal IMPRESSION: Heterogeneous myometrium is a 1.2 cm fundal mass. Fibroid is favored Prominent heterogeneous endometrium, correlate with the menstrual cycle Electronically authenticated by: MAREN STEPHENSON Date: 10/17/2023 13:47 Dictated By: Maren Stephenson M.D. Signed By:10/17/23 1349 DD/ 1347 TD/TT: Grain Wafer Machine Operator: us Generic External Data Provider [facility] Final Result documented in this encounter Visit Diagnoses Not on filedocumented in this encounter Care Teams Abstract Clerk Relationship Specialty Start Date End Date Katlyn Damon MD [address] [place] [address] PCP - External PCP Family Medicine 12/29/22 Chet Guajardo MD [address] [place] [address] PCP - General Family Medicine 10/01/23 Lucinda Rodriguez NP [address] [place] [address] PCP - [facility] 10/21/23 Lucinda Rodriguez NP [address] [place] [address] Nurse Practitioner Family Medicine 10/01/23 documented as of this encounter
--- OUTSIDE RECORDS SUMMARY | 2025-05-03 21:01 | XMS_ITS | Encounter Summary ---
Author Organization [facility] Address [address] [place] [address] Care Team Providers Care Pearl Peller Name Role Phone Katlyn Damon MD Unavailable [phone] Chet Guajardo MD Primary Care Provider [phone] Lucinda Rodriguez NP Unavailable [phone] Lucinda Rodriguez NP Unavailable [phone] Encounter Details Date Type Department Care Team (Late st Contact Info) Description 02/05/2024 Abstract [facility] [address] [address] [place] [address] Pauline Laughlin LPN [address] [place] [address] Social History Tobacco Use Types Packs/Day Years [...] week 08/12/2023 How often do you attend [facility] or buddhism services? 1 to 4 times per year 08/12/2023 Do you belong to any clubs o r organizations such as judaism groups, unions, fraternal or athletic groups, or [...] Recorded Patient Health Questionnaire-2 Score 0 10/01/2023 [facility] of Occupat ional Health - [...] place to sleep or slept in a snf (including now)? No 08/12/2023 Comments No Sex [...] EDT Office Visit [facility] [address] [facility] [place] [address] Abel Alvarez DO [address] [facility] [place] [address] documented as of this encounter Visit Diagnoses Not on filedocumented in this encounter Care Teams Pearl Peller Relationship Specialty Start Date End Date Katlyn Damon MD [address] [place] [address] PCP - External PCP Family Medicine 12/29/22 Chet Guajardo MD [address] [place] [address] PCP - General Family Medicine 10/01/23 Lucinda Rodriguez NP [address] [place] [address] PCP - [facility] 10/21/23 Lucinda Rodriguez NP [address] [place] [address] Nurse Practitioner Family Medicine 10/01/23 documented as of this encounter
--- OUTSIDE RECORDS SUMMARY | 2025-05-03 21:01 | XMS_ITS | Clinical Summary ---
Author Organization [facility] Address [address] [place] [address] Phone Care Team Providers Care State Farm Agent Name Role Phone Cathy Wood NURSE QUALITY Unavailable Unavailab Lucinda Howard PEDIATRIC GENETICIST-BELTING CUTTER Primary Care Provider Allergies No known active allergies Medications metFORMIN XR 500 mg 24 hr tablet TAKE 1 TABLET (500 MG) BY MOUTH IN THE EVENING. TAKE WITH MEALS DO NOT CRUSH, CHEW, OR SPLIT. Active montelukast (Singulair) 10 mg tablet Take 1 tablet (10 mg) by mouth once daily at bedtime. 02/20/2024 Active cyanocobalamin, vitamin B-12, 1,000 mcg capsule Take by mouth. Active albuterol 90 mcg/actuation inhaler Inhale 2 puffs every 6 hours if needed. 08/22/2023 Active ferrous sulfate 325 (65 Fe) MG EC tablet Take 65 mg by mouth 3 times daily (morning, midday, late afternoon). Do not crush, chew, or split. Active ethynodiol diac-eth estradioL (Kelnor , 28,) 1-35 mg-mcg tabletIndication s:Uses control Take 1 tablet by mouth once daily. 28 tablet 2 09/15/2024 Active Active Problems Problem Noted Date Diagnosed Date Submucous uterine fibroid 07/24/2024 Asthma ([facility]) 06/26/2024 PCOS (polycystic ovarian syndrome) 06/26/2024 Class 2 obesity in adult 06/26/2024 Intramural, submucous, and subserous leiomyoma o f uterus 05/18/2024 Resolved Problems Problem Noted Date Diagnosed Date Resolved Date Chronic renal insufficiency 06/26/2024 06/26/2024 Family History Medical History Relation Name Comments Hypertension Father Medardo Kidney disease Father Medardo Ovarian cancer Maternal Grandmother Relation Name Status Comments Father Medardo Alive Maternal Grandmother Social History Tobacco Use Types Packs/Day Years Used Date Smoking Tobacco: Never Passive Smoke Exposure: Never Smokeless Tobacco: Never Tobacco Cessation:Counseling Given: Not Answered Alcohol Use Standard Drinks/Week Comments Yes 0 (1 standard drink = 0.6 oz pur e alcohol) PHQ-2 Answer Date Recorded Patient Health Questionnaire-2 Score 0 09/14/2024 Comments No Sex and Gender Information Value Date Recorded Sex Assigned at Female 05/11/2024 12:06 PM EDT Legal Sex Female 1:17 PM EDT Gender Identity Female 05/11/2024 12:06 PM EDT Sexual Orientation Straight 05/11/2024 12 :06 PM EDT Last Filed Vital Signs Vital Sign Reading Time Taken Comments Blood Pressure 142/88 08/21/2024 2:45 PM EST Pulse 90 08/21/2024 2:45 PM EST Temperature 36.1 C (97 F) 08/21/2024 2:19 PM EST Respiratory Rate 19 08/21/2024 2:45 PM EST Oxygen Saturation 96% 08/21/2024 3:00 PM EST Inhaled Oxygen Concentration - - Weight 107 kg (236 lb) 09/14/2024 10:26 AM EST Height 165.1 cm (5' 5 ) 09/14/2024 10:26 AM EST Body Mass Index 39.27 09/14/2024 10:26 AM EST Plan of Treatment Health Maintenance Due Date Last Done Comments HIV Screening 1990 Lipid Panel 1990 MMR Vaccines (1 of 1 - Standard series) 02/19/1992 Hepatitis C Screening 2009 Pneumococcal Vaccine: Pediatrics and At-Risk Adult Patients (1 of 2 - PCV) 2010 HPV/Cotest 02/19/2012 HPV Vaccines (1 - 3-dose standard series) 2018 DTaP/Tdap/Td Vaccines (2 - Td or Tdap) 12/30/2021 12/31/2011 COVID-19 Vaccine ( - season) 2025 Influenza Vaccine (#1) 2025 , 04/21/2023, 04/18/2020, Additional history exists Yearly Adult Physical 09/11/2025 09/10/2024 , 08/22/2023, 04/03/2023 Cervical Cancer Screening 04/16/2026 Pap Smear 04/16/2026 04/16/2023 Zoster Vaccines (1 of 2) 2041 Hepatitis B Vaccines Completed 07/17/2012, 01/31/2012, 12/31/2011 HIB Vaccines Aged Out No longer eligi ble based on patient's age to complete this topic Hepatitis A Vaccines Aged Out No long er eligible based on patient's age to complete this topic IPV Vaccines Aged Out No longer eligi ble based on patient's age to complete this topic Meningococcal Vaccine Aged Out No reji laura eligible based on patient's age to complete this topic Rotavirus Vaccines Aged Out No longer eligible based on patient's age to complete this topic Insurance [facility] Member Subscriber Plan / Payer (Ef fective 2022-Present) Name:Barb Estrada Member ID:[id number] Relation to Subscriber:Self Name:Barb Estrada Subscriber ID:[id number] Payer ID:[id number] (NAIC) Type:Not on file Address: [id number] [place] [address] [facility] Advance Directives For more information, please contact: [phone] (Available ) * Full Code (Latest Code Status on File) Date Activated Date Inactivated Comments 06/26/2024 6:10 AM Question Answer Comments Plan of Care: Code Status Discussion Completed Decision Maker: Patient Care Teams State Farm Agent Relationship Specialty Start Date End Date Lucinda Rodriguez, PEDIATRIC GENETICIST-BELTING CUTTER [address] [place] [address] PCP - General 06/03/24 Cathy Wood NURSE QUALITY Licensed Practical Nurse 05/18/24
--- OUTSIDE RECORDS SUMMARY | 2025-05-03 21:01 | XMS_ITS | Encounter Summary ---
Author Organization [facility] Address [address] [place] [address] Care Team Providers Care Customer Development Representative Name Role Phone Katlyn Damon MD Unavailable [phone] Chet Guajardo MD Primary Care Provider [phone] Lucinda Rodriguez NP Unavailable [phone] Lucinda Rodriguez NP Unavailable [phone] Encounter Details Date Type Department Care Team (Late st Contact Info) Description 05/03/2025 Bamboo flowsheet [facility] [address] [facility] [place] [address] Abel Alvarez DO [address] [facility] [address] [place], [facility] Social History Tobacco Use Types Packs/Day Years [...] How often do you attend chur or presybeterian services? 1 to 4 times per year 09/10/2024 Do you belong to any clubs o r organizations such as rastafarian groups, unions, fraternal or athletic groups, or [...] Recorded Patient Health Questionnaire-2 Score 0 10/01/2023 [facility] [place] of Occupat ional Health - Occupational Stress [...] in a chcf (including now)? No 08/12/2023 Housing Stability Vital Sign Answer Kirit e Recorded In the last 12 months, was t here a time when you were not able to pay the mortgage or rent on time? No 09/10/2024 In the past 12 months, how m any times have you moved where you were living? 0 09/10/2024 At any time in the past [address] [facility], were you homeless or living in a chcf (including now)? No 09/10/2024 Comments No Sex and Gender Information Value Date Recorded Sex Assigned at Not on file Legal Sex Female 8:00 PM EDT Gender Identity Not on file Sexual Orientation Not on file documented as of this encounter Plan of Treatment Upcoming Encounters Date Type Department Care Team (Late st Contact Info) Description 09/29/2025 1:00 PM EDT Office Visit [facility] J[facility] [address] [place] [address] [place] [address] Abel Alvarez, [address] [place] [address] documented as of this encounter Visit Diagnoses Not on filedocumented in this encounter Care Teams Customer Development Representative Relationship Specialty Start Date End Date Katlyn Damon MD [address] [place] [address] PCP - External PCP Family Medicine 12/29/22 Chet Guajardo MD [address] [place] [address] PCP - General Family Medicine 10/01/23 Lucinda Rodriguez NP [facility] [place] [address] PCP - [facility] 10/21/23 Lucinda Rodriguez NP [address] [place] [address] Nurse Practitioner Family Medicine 10/01/23 documented as of this encounter
--- OUTSIDE RECORDS SUMMARY | 2025-05-03 21:01 | XMS_ITS | Encounter Summary ---
Author Organization [facility] Address [address] [facility] [place] [address] Care Team Providers Care Group Captain Name Role Phone Katlyn Damon MD Unavailable [phone] Chet Guajardo MD Primary Care Provider [phone] Lucinda Rodriguez NP Unavailable [phone] Lucinda Rodriguez NP Unavailable [phone] Encounter Details Date Type Department Care Team (Late st Contact Info) Description 03/10/2025 Abstract [facility] [address] [place] [address] Lucinda Rodriguez BELLY PACKER [address] [place] [address] Social History Tobacco Use Types Packs/Day Years [...] How often do you attend chur or yazdanism services? 1 to 4 times per year 09/10/2024 Do you belong to any clubs o r organizations such as orthodoxy groups, unions, fraternal or athletic groups, or [...] Recorded Patient Health Questionnaire-2 Score 0 10/01/2023 [facility] of Occupat ional Health - Occupational Stress [...] money to buy more. Never true 09/10/19 Within the past 12 months, t he [...] place to sleep or slept in a halfway (including now)? No 08/12/2023 Housing Stability Vital Sign Answer Kirit e Recorded In the last 12 months, was t here a time when you were not able to pay the mortgage or rent on time? No 09/10/2024 In the past 12 months, how m any times have you moved where you were living? 0 09/10/2024 At any time in the past 12 m [facility], were you homeless or living in a halfway (including now)? No 09/10/2024 Comments No Sex and Gender Information Value Date Recorded Sex Assigned at Not on file Legal Sex Female 8:00 PM EDT Gender Identity Not on file Sexual Orientation Not on file documented as of this encounter Plan of Treatment Upcoming Encounters Date Type Department Care Team (Late st Contact Info) Description 09/29/2025 1:00 PM EDT Office Visit [facility] J[facility] [address] [place] [address] [place] [address] Abel Alvarez, [address] [place], [place] [id number] documented as of this encounter Visit Diagnoses Not on filedocumented in this encounter Care Teams Group Captain Relationship Specialty Start Date End Date Katlyn Damon MD [address] [place] [address] PCP - External PCP Family Medicine 12/29/22 Chet Guajardo MD [address] [place] [address] PCP - General Family Medicine 10/01/23 Lucinda Rodriguez NP [address] [facility] [place] [address] PCP - [facility] 10/21/23 Lucinda Rodriguez NP [address] [place] [address] Nurse Practitioner Family Medicine 10/01/23 documented as of this encounter
--- OUTSIDE RECORDS SUMMARY | 2025-05-03 21:01 | XMS_ITS | Encounter Summary ---
Author Organization [facility] Address [address] [place] [address] Care Team Providers Care Power Cutting Machine Operator Name Role Phone Katlyn Damon MD Unavailable [phone] Chet Guajardo MD Primary Care Provider [phone] Lucinda Rodriguez NP Unavailable [phone] Lucinda Rodriguez NP Unavailable [phone] Encounter Details Date Type Department Care Team (Late st Contact Info) Description 03/08/2025 Results Follow-Up [facility] [address] [place] [address] Ting Levin MA ALL CBC WITH AUTO DIFF, HMHP IRON Social History Tobacco Use Types Packs/Day Years [...] How often do you attend chur or cheondoism services? 1 to 4 times per year 09/10/2024 Do you belong to any clubs o r organizations such as orthodox groups, unions, fraternal or athletic groups, [...] Recorded Patient Health Questionnaire-2 Score 0 10/01/2023 [facility] [place] of Occupat ional Health - Occupational Stress [...] place to sleep or slept in a assisted (including now)? No 08/12/2023 Housing Stability Vital Sign Answer Kirit e Recorded In the last 12 months, was t here a time when you were not able to pay the mortgage or rent on time? No 09/10/2024 In the past 12 months, how m any times have you moved where you were living? 0 09/10/2024 At any time in the past 12 m [facility], were you homeless or living in a assisted (including now)? No 09/10/2024 Comments No Sex [...] EDT Office Visit [facility] [place] [facility] [address] [place] [address] Abel Alvarez DO [address] [place] [address] documented as of this encounter Visit Diagnoses Not on filedocumented in this encounter Care Teams Power Cutting Machine Operator Relationship Specialty Start Date End Date Katlyn Damon MD [address] [place] [address] PCP - External PCP Family Medicine 12/29/22 Chet Guajardo MD [address] [place] [address] PCP - General Family Medicine 10/01/23 Lucinda Rodriguez NP [address] [place] [address] PCP - [facility] 10/21/23 Lucinda Rodriguez NP [address] [place] [address] Nurse Practitioner Family Medicine 10/01/23 documented as of this encounter
--- OUTSIDE RECORDS SUMMARY | 2025-05-03 21:01 | XMS_ITS | Encounter Summary ---
Author Organization [facility] Address [address] [place] [address] Care Team Providers Care Technology Teacher Name Role Phone Katlyn Damon MD Unavailable [phone] Chet Guajardo MD Primary Care Provider [phone] Lucinda Rodriguez NP Unavailable [phone] Lucinda Rodriguez NP Unavailable [phone] Encounter Details Date Type Department Care Team (Late st Contact Info) Description 10/14/2024 Abstract [facility] [place] [facility] [address] [place] [address] Abel Alvarez DO [address] [facility] [address] [place], [place] [id number] Social History Tobacco Use Types Packs/Day Years [...] How often do you attend chur or congregational services? 1 to 4 times per year 09/10/2024 Do you belong to any clubs o r organizations such as pentecostalism groups, unions, fraternal or athletic groups, or [...] Recorded Patient Health Questionnaire-2 Score 0 10/01/2023 [facility] [place] of Occupat ional Health - Occupational Stress [...] any time in the past 12 m [facility], were you homeless or living [...] Description 09/29/2025 1:00 PM EDT Office Visit [facility] [place] [facility] [address] [place] [address] [place] [address] Abel Alvarez [address] [place] [address] documented as of this encounter Visit Diagnoses Not on filedocumented in this encounter Care Teams Technology Teacher Relationship Specialty Start Date End Date Katlyn Damon MD [address] [place] [address] PCP - External PCP Family Medicine 12/29/22 Chet Guajardo MD [address] [place] [address] PCP - General Family Medicine 10/01/23 Lucinda Rodriguez NP [facility] [place] [address] PCP - [facility] 10/21/23 Lucinda Rodriguez NP [address] [place] [address] Nurse Practitioner Family Medicine 10/01/23 documented as of this encounter
--- OUTSIDE RECORDS SUMMARY | 2025-05-03 21:01 | XMS_ITS | Encounter Summary ---
Author Organization [facility] Address [address] [place] [address] Care Team Providers Care Paint Brush Maker Name Role Phone Katlyn Damon MD Unavailable [phone] Chet Guajardo MD Primary Care Provider [phone] Lucinda Rodriguez NP Unavailable [phone] Lucinda Rodriguez NP Unavailable [phone] Reason for Visit * Reason Comments Med Refill Encounter Details Date Type Department Care Team (Late st Contact Info) Description 12/05/2024 Refill [facility] [address] [place] [address] Lucinda Rodriguez PHYSIATRIST [address] [place] [address] Iron deficiency anemia, unspecified iron deficiency anemia type Social History Tobacco Use Types Packs/Day Years [...] 09/10/2024 How often do you attend chur ch or presybeterian services? 1 to 4 times per year 09/10/2024 Do you belong to any clubs o r organizations such as baptist groups, unions, fraternal or athletic groups, or [...] Recorded Patient Health Questionnaire-2 Score 0 10/01/2023 [facility] of Occupat ional Health - [...] place to sleep or slept in a jail (including now)? No 08/12/2023 Housing Stability Vital Sign Answer Kirit e Recorded In the last 12 months, was t here a time when you were not able to pay the mortgage or rent on time? No 09/10/2024 In the past 12 months, how m any times have you moved where you were living? 0 09/10/2024 At any time in the past 12 m [facility], were you homeless or living in a jail (including now)? No 09/10/2024 Comments No Sex and Gender Information Value Date Recorded Sex Assigned at Not on file Legal Sex Female 8:00 PM EDT Gender Identity Not on file Sexual Orientation Not on file documented as of this encounter Plan of Treatment Upcoming Encounters Date Type Department Care Team (Late st Contact Info) Description 09/29/2025 1:00 PM EDT Office Visit [facility] [address] [place] [address] Abel Alvarez DO [address] [facility] [place] [address] documented as of this encounter Visit Diagnoses Diagnosis Iron deficiency anemia, unspecified iron deficiency anemia type documented in this encounter Care Teams Paint Brush Maker Relationship Specialty Start Date End Date Katlyn Damon MD [address] [place] [address] PCP - External PCP Family Medicine 12/29/22 Chet Guajardo MD [address] [place] [address] PCP - General Family Medicine 10/01/23 Lucinda Rodriguez NP [facility] [place] [address] PCP - [facility] 10/21/23 Lucinda Rodriguez NP [address] [place] [address] Nurse Practitioner Family Medicine 10/01/23 documented as of this encounter
--- OUTSIDE RECORDS SUMMARY | 2025-05-03 21:01 | XMS_ITS | Encounter Summary ---
Author Organization [facility] Address [address] [place] [address] Care Team Providers Care Binder Technician Name Role Phone Katlyn Damon MD Unavailable [phone] Chet Guajardo MD Primary Care Provider [phone] Lucinda Rodriguez NP Unavailable [phone] Lucinda Rodriguez NP Unavailable [phone] Encounter Details Date Type Department Care Team (Late st Contact Info) Description 11/11/2024 Results Follow-Up [facility] [address] [facility] [place] [address] Ting Levin MA ALL CBC WITH AUTO DIFF, MLR HEMOGLOBIN A1C, CCF CMP (CMP) (FOR REMOTE [facility] USE), Additional followed-up results: 4 Social History Tobacco Use Types Packs/Day Years [...] How often do you attend chur or methodist services? 1 to 4 times per year 09/10/2024 Do you belong to any clubs o r organizations such as faith groups, unions, fraternal or athletic groups, or [...] Recorded Patient Health Questionnaire-2 Score 0 10/01/2023 [facility] [place] of Occupat ional Health - Occupational Stress [...] place to sleep or slept in a care home (including now)? No 08/12/2023 Housing Stability Vital [...] the past [address] [facility], were you homeless or living in a care home (including now)? No 09/10/2024 Comments No Sex and Gender Information Value Date Recorded Sex Assigned at Not on file Legal Sex Female 8:00 PM EDT Gender Identity Not on file Sexual Orientation Not on file documented as of this encounter Plan of Treatment Upcoming Encounters Date Type Department Care Team (Late st Contact Info) Description 09/29/2025 1:00 PM EDT Office Visit [facility] [address] [place] [address] [place] [address] Abel Alvarez, [address] [place] [address] documented as of this encounter Visit Diagnoses Not on filedocumented in this encounter Care Teams Binder Technician Relationship Specialty Start Date End Date Katlyn Damon MD [address] [place] [address] PCP - External PCP Family Medicine 12/29/22 Chet Guajardo MD [address] [place] [address] PCP - General Family Medicine 10/01/23 Lucinda Rodriguez NP [facility] [place] [address] PCP - [facility] 10/21/23 Lucinda Rodriguez NP [address] [place] [address] Nurse Practitioner Family Medicine 10/01/23 documented as of this encounter
--- OUTSIDE RECORDS SUMMARY | 2025-05-03 21:01 | XMS_ITS | Clinical Summary ---
Author Organization [employer] [facility] tem Address [facility] [id number] [address] [place] [address] Care Team Providers Care Continuous Miner Operator Name Role Phone Unavailable Primary Care Provider Unavailabl e Social History Tobacco Use Types Packs/Day Years Used Date Smoking Tobacco: Never Assessed Childcare Answer Date Recorded Childcare Unknown 12/31/2018 Employment Answer Date Recorded Employment Unknown 12/31/2018 Comments Unknown Sex and Gender Information Value Date Recorded Sex Assigned at Not on file Legal Sex Female 12:06 PM EDT Gender Identity Not on file Sexual Orientation Not on file Plan of Treatment Not on file Medical Devices Not on file
--- OUTSIDE RECORDS SUMMARY | 2025-05-03 21:01 | XMS_ITS | Encounter Summary ---
Author Organization [facility] Address [address] [place] [address] Care Team Providers Care Senior Core Java Developer Name Role Phone Katlyn Damon MD Unavailable [phone] Chet Guajardo MD Primary Care Provider [phone] Lucinda Rodriguez NP Unavailable [phone] Lucinda Rodriguez NP Unavailable [phone] Encounter Details Date Type Department Care Team (Late st Contact Info) Description 12/25/2023 Clinisync Result Encounter [facility] External Department Unsolicited [...] How often do you attend chur or tenriism services? 1 to 4 times per year 08/12/2023 Do you belong to any clubs o r organizations such as scientologist groups, unions, fraternal or athletic groups, or [...] Recorded Patient Health Questionnaire-2 Score 0 10/01/2023 [facility] of Occupat ional Health - Occupational [...] place to sleep or slept in a [facility] (including now)? No 08/12/2023 Comments No Sex [...] EDT Office Visit [facility] [place] [facility] [address] [address] Jenny Alvarez DO [address] [facility] [place] [address] documented as of this encounter Procedures Procedure Name Priority Date/Time Associated Diagnosis Comments US PELVIS TRANSVAGINAL 12/25/2023 11:26 AM EDT documented in this encounter Results * US PELVIS TRANSVAGINAL (12/25/2023 11:26 AM EDT) Anatomical Region Laterality Modality Other 12/25/2023 11:2 6 AM EDT Narrative 12/25/2023 11:29 AM EDT The [address] [address] Ultrasound Report Signed Patient: BARB GARIBAY MR#: [id number] : 1990 Acct:[id number] Age/Sex: 33 / F ADM Date: 12/25/23 Loc: [facility] Attending Dr: Jenny Alvarez D.O. Ordering Physician: Jenny Alvarez D.O. Date of Service: 12/25/23 Procedure(s): US pelvis transvaginal Accession Number(s): [id number] cc: Lucinda Rodriguez CLINICAL PSYCHOLOGIST; Jenny Alvarez D.O. [place] [id number] Patient Name: BARB GARIBAY MRN: [id number] date: 1990 Sex: F Assigned Patient Location: [facility] Current Patient Location: [facility] Accession/Order Number: [id number] Exam Date: 12/25/2023 10:05 Report Date: 12/25/2023 11:26 At the request of: JENNY ALVAREZ Procedure: US pelvis transvaginal EXAMINATION: US pelvis transvaginal HISTORY: IRREGULAR BLEEDING WITH IUD COMPARISON: No relevant comparison available. TECHNIQUE: Transabdominal and/or transvaginal sonographic examination was performed as indicated by examination type. FINDINGS: UTERUS: Contains multiple myometrial masses suspected represent leiomyomas, please include a 6.0 cm, 5.9 cm, 3.2 cm, 1.9 cm and a 1.6 cm mass. The largest mass is suspected to contact the endometrial lining. Uterus size: 10.5 x 5.2 x 7.0 cm ENDOMETRIUM: Abnormally thickened. Endometrial thickness: 18 mm RIGHT OVARY: Normal size and appearance. Duplex Doppler demonstrates normal waveform and flow; resistive index 0.5. Ovary size: 3.5 x 2.4 x 3.6 cm LEFT OVARY: Not seen. CUL-DE-SAC: Unremarkable. No significant free fluid. BLADDER: Unremarkable. OTHER: None. US/US pelvis transvaginal IMPRESSION: 1. Multiple masses within the uterus favoring leiomyomas. One of these appears to contact the endometrial lining which could contribute to patient's irregular bleeding. 2. Abnormally thickened endometrial, 18 mm. 3. No IUD visible within the endometrial cavity. Electronically authenticated by: SEB OBRIEN Date: 12/25/2023 11:26 Dictated By: Seb Obrien M.D. Signed By: 12/25/23 1129 DD/ 1126 TD/TT: Rn Admit: Procedure Note Radiology, Radiologist, - 12/25/2023 [place] [address] Ultrasound Report Signed Patient: BARB GARIBAY R#: [id number] : 1990Acct:[id number] Age/Sex: 33 / FADM Date: 12/25/23 Loc: [facility] Attending Dr: Jenny Alvarez D.O. Ordering Physician: Jenny Alvarez D.O. Date of Service: 12/25/23 Procedure(s): US pelvis transvaginal Accession Number(s): [id number] cc: Lucinda Rodriguez CLINICAL PSYCHOLOGIST; Jenny Alvarez D.O. The [place] [address] Patient Name: BARB GARIBAY MRN: [id number] date: 1990 Sex: F Assigned Patient Location: [facility] Current Patient Location: [facility] Accession/Order Number: [id number] Exam Date: 12/25/2023 10:05 Report Date: 12/25/2023 11:26 At the request of: JENNY ALVAREZ Procedure: US pelvis transvaginal EXAMINATION: US pelvis transvaginal HISTORY: IRREGULAR BLEEDING WITH IUD COMPARISON: No relevant comparison available. TECHNIQUE: Transabdominal and/or transvaginal sonographic examination was performed as indicated by examination type. FINDINGS: UTERUS: Contains multiple myometrial masses suspected representleiomyomas, please include a 6.0 cm, 5.9 cm, 3.2 cm, 1.9 cm and a 1.6 cm mass. Thelargest mass is suspected to contact the endometrial lining. Uterus size: 10.5 x5.2 x 7.0 cm ENDOMETRIUM: Abnormally thickened. Endometrial thickness: 18 mm RIGHT OVARY: Normal size and appearance. Duplex Doppler demonstratesnormal waveform and flow; resistive index 0.5. Ovary size: 3.5 x 2.4 x 3.6 cm LEFT OVARY: Not seen. CUL-DE-SAC: Unremarkable. No significant free fluid. BLADDER: Unremarkable. OTHER: None. US/US pelvis transvaginal IMPRESSION: 1. Multiple masses within the uterus favoring leiomyomas. One of theseappears to contact the endometrial lining which could contribute to patient's irregular bleeding. 2. Abnormally thickened endometrial, 18 mm. 3. No IUD visible within the endometrial cavity. Electronically authenticated by: SEB OBRIEN Date: 12/25/2023 11:26 Dictated By: Seb Obrien M.D. Signed By:12/25/23 1129 DD/ 1126 TD/TT: Rn Admit: us Generic External Data Provider [facility] Final Result documented in this encounter Visit Diagnoses Not on filedocumented in this encounter Care Teams Senior Core Java Developer Relationship Specialty Start Date End Date Katlyn Damon MD [address] [place] [address] PCP - External PCP Family Medicine 12/29/22 Chet Guajardo MD [address] [place] [address] PCP - General Family Medicine 10/01/23 Lucinda Rodriguez NP [address] [place] [address] PCP - [facility] 10/21/23 Lucinda Rodriguez NP [address] [place] [address] Nurse Practitioner Family Medicine 10/01/23 documented as of this encounter
--- OUTSIDE RECORDS SUMMARY | 2025-05-03 21:01 | XMS_ITS | Encounter Summary ---
Author Organization [facility] Address [address] [facility] [place] [address] Care Team Providers Care Behavioral Therapy Coordinator Name Role Phone Katlyn Damon MD Unavailable [phone] Chet Guajardo MD Primary Care Provider [phone] Lucinda Rodriguez NP Unavailable [phone] Lucinda Rodriguez NP Unavailable [phone] Encounter Details Date Type Department Care Team (Late st Contact Info) Description 10/06/2024 Orders Only [facility] [place] [facility] [address] [place] [address] Pauline Laughlin LPN [address] [place] [address] Social History Tobacco Use Types [...] How often do you attend chur or gnosticist services? 1 to 4 times per year 09/10/2024 Do you belong to any clubs o r organizations such as denominational groups, unions, fraternal or athletic groups, or [...] Recorded Patient Health Questionnaire-2 Score 0 10/01/2023 [facility] [place] of Occupat ional Health - Occupational Stress [...] place to sleep or slept in a long-term (including now)? No 08/12/2023 Housing Stability Vital Sign Answer Kirit e Recorded In the last 12 months, was t here a time when you were not able to pay the mortgage or rent on time? No 09/10/2024 In the past 12 months, how m any times have you moved where you were living? 0 09/10/2024 At any time in the past 12 m [facility], were you homeless or living in a long-term (including now)? No 09/10/2024 Comments No Sex [...] PM EDT Office Visit [facility] [place] [facility] [address] [place] [address] [place] [address] Abel Alvarez, [address] [place] [address] documented as of this encounter Procedures Procedure Name Priority Date/Time Associated Diagnosis Comments PAP SMEAR Routine 09/23/2024 12:00 AM EST documented in this encounter Results * Pap Smear (09/23/2024 12:00 AM EST) Swab Cervical swab / Unknown Kim Nurse [facility] CYTOLOGY ORDERABLES Final Result EXTERNAL LAB documented in this encounter Visit Diagnoses Not on filedocumented in this encounter Care Teams Behavioral Therapy Coordinator Relationship Specialty Start Date End Date Katlyn Damon MD [address] [place] [address] PCP - External PCP Family Medicine 12/29/22 Chet Guajardo MD [address] [place] [address] PCP - General Family Medicine 10/01/23 Lucinda Rodriguez NP [facility] [place] [address] PCP - [facility] 10/21/23 Lucinda Rodriguez NP [address] [place] [address] Nurse Practitioner Family Medicine 10/01/23 documented as of this encounter
--- OUTSIDE RECORDS SUMMARY | 2025-05-03 21:01 | XMS_ITS | Encounter Summary ---
Author Organization [facility] Address [address] [place] [address] Care Team Providers Care Intake Manager Name Role Phone Katlyn Damon MD Unavailable [phone] Chet Guajardo MD Primary Care Provider [phone] Lucinda Rodriguez NP Unavailable [phone] Lucinda Rodriguez NP Unavailable [phone] Encounter Details Date Type Department Care Team (Late st Contact Info) Description 12/31/2023 Clinisync Result Encounter [facility] External Department Unsolicited Jenny Alvarez, DO [address] [facility] [address] [place] [address] Social History Tobacco Use Types [...] How often do you attend chur or shinto services? 1 to 4 times per year 08/12/2023 Do you belong to any clubs o r organizations such as sabianist groups, unions, fraternal or athletic groups, or [...] Recorded Patient Health Questionnaire-2 Score 0 10/01/2023 [facility] Occup[facility] - Occupational Stress [...] place to sleep or slept in a fci (including now)? No 08/12/2023 Comments No Sex and Gender Information Value Date Recorded Sex Assigned at Not on file Legal Sex Female 8:00 PM EDT Gender Identity Not on file Sexual Orientation Not on file documented as of this encounter Plan of Treatment Upcoming Encounters Date Type Department Care Team (Late st Contact Info) Description 09/29/2025 1:00 PM EDT Office Visit [facility] [address] [place] [phone] Jenny Alvarez, [address] [facility] [place], [place] [phone] documented as of this encounter Procedures Procedure Name Priority Date/Time Associated Diagnosis Comments XR ABDOMEN 1V 12/31/2023 7:04 AM EDT documented in this encounter Results * XR ABDOMEN 1V (12/31/2023 7:04 AM EDT) Anatomical Region Laterality Modality Other 12/31/2023 7:04 AM EDT Narrative 12/31/2023 7:06 AM EDT [facility] [place] [id number] XRay Report Signed Patient: BARB GARIBAY MR#: [id number] : 1990 Acct:[id number] Age/Sex: 33 / F ADM Date: 12/30/23 Loc: US Attending Dr: Jenny Alvarez D.O. Ordering Physician: Jenny Alvarez D.O. Date of Service: 12/30/23 Procedure(s): XR abdomen 1V Accession Number(s): [id number] cc: Lucinda Rodriguez SCIENTIFIC LABORATORY SUPERVISOR; Jenny Alvarez D.O. [facility] [place] [address] Patient Name: BARB GARIBAY MRN: [id number] date: 1990 Sex: F Assigned Patient Location: [place] Current Patient Location: Accession/Order Number: [id number] Exam Date: 12/30/2023 13:18 Report Date: 12/31/2023 07:04 At the request of: JENNY ALVAREZ Procedure: XR abdomen 1V EXAMINATION: XR abdomen 1V HISTORY: Fibroids, Heavy Bleeding COMPARISON: No relevant comparison available. FINDINGS: BOWEL GAS PATTERN: No abnormal dilation or deviation. CALCIFICATIONS: None significant. OTHER: IUD projects over the mid pelvis XR/XR abdomen 1V IMPRESSION: Nonobstructive bowel gas pattern Electronically authenticated by: MAREN STEPHENSON Date: 12/31/2023 07:04 Dictated By: Maren Stephenson M.D. Signed By: 12/31/23705 DD/ 3 TD/TT: Bioinformatics Engineer: Procedure Note Radiology, Radiologist, MD - 12/31/2023 [facility] [place] [id number] XRay Report Signed Patient: BARB GARIBAY LMR#: [id number] : 1990Acct:[id number] Age/Sex: 33 / FADM Date: 12/30/23 Loc: US Attending Dr: Jenny Alvarez D.O. Ordering Physician: Jenny Alvarez D.O. Date of Service: 12/30/23 Procedure(s): XR abdomen 1V Accession Number(s): [id number] cc: Lucinda Rodriguez SCIENTIFIC LABORATORY SUPERVISOR; Jenny Alvarez D.O. [address] [address] Patient Name: BARB GARIBAY MRN: [id number] date: 1990 Sex: F Assigned Patient Location: US Current Patient Location: Accession/Order Number: [id number] Exam Date: 12/30/2023 13:18 Report Date: 12/31/2023 07:04 At the request of: JENNY ALVAREZ Procedure: XR abdomen 1V EXAMINATION: XR abdomen 1V HISTORY: Fibroids, Heavy Bleeding COMPARISON: No relevant comparison available. FINDINGS: BOWEL GAS PATTERN: No abnormal dilation or deviation. CALCIFICATIONS: None significant. OTHER: IUD projects over the mid pelvis XR/XR abdomen 1V IMPRESSION: Nonobstructive bowel gas pattern Electronically authenticated by: MAREN STEPHENSON Date: 12/31/2023 07:04 Dictated By: Maren Stephenson M.D. Signed By:12/31/23705 DD/ 3 TD/TT: Bioinformatics Engineer: Jenny Alvarez DO [facility] Final Result documented in this encounter Visit Diagnoses Not on filedocumented in this encounter Care Teams Intake Manager Relationship Specialty Start Date End Date Katlyn Damon MD [address] [place] [address] PCP - External PCP Family Medicine 12/29/22 Chet Guajardo MD [address] [place] [address] PCP - General Family Medicine 10/01/23 Lucinda Rodriguez NP [address] [place] [address] PCP - [place] [employer] 10/21/23 Lucinda Rodriguez NP [address] [place] [phone] Nurse Practitioner Family Medicine 10/01/23 documented as of this encounter
--- OUTSIDE RECORDS SUMMARY | 2025-05-03 21:01 | XMS_ITS | Encounter Summary ---
Author Organization [facility] Address [address] [place] [address] Care Team Providers Care District Manager In Training Name Role Phone Katlyn Damon MD Unavailable [phone] Chet Guajardo MD Primary Care Provider [phone] Lucinda Rodriguez NP Unavailable [phone] Lucinda Rodriguez NP Unavailable [phone] Encounter Details Date Type Department Care Team (Late st Contact Info) Description 11/15/2023 Abstract [facility] [address] [place] [address] Pauline Laughlin LPN [address] [place] [address] Social History Tobacco Use Types [...] week 08/12/2023 How often do you attend [facility] or buddhist services? 1 to 4 times per year 08/12/2023 Do you belong to any clubs o r organizations such as methodist groups, unions, fraternal or athletic groups, or [...] Recorded Patient Health Questionnaire-2 Score 0 10/01/2023 [facility] - [...] place to sleep or slept in a fdc (including now)? No 08/12/2023 Comments No Sex [...] EDT Office Visit [facility] [address] [facility] [address] [address] Abel Alvarez DO [address] [facility] [facility] [place] [address] documented as of this encounter Visit Diagnoses Not on filedocumented in this encounter Care Teams District Manager In Training Relationship Specialty Start Date End Date Katlyn Damon MD [address] [place] [address] PCP - External PCP Family Medicine 12/29/22 Chet Guajardo MD [address] [place] [address] PCP - General Family Medicine 10/01/23 Lucinda Rodriguez NP [address] [place] [phone] PCP - [facility] 10/21/23 Lucinda Rodriguez NP [address] [place] [address] Nurse Practitioner Family Medicine 10/01/23 documented as of this encounter
--- OUTSIDE RECORDS SUMMARY | 2025-05-03 21:01 | XMS_ITS | Encounter Summary ---
Author Organization [facility] Address [address] [place] [address] Care Team Providers Care Product Promoter Sales Person Name Role Phone Katlyn Damon MD Unavailable [phone] Chet Guajardo MD Primary Care Provider [phone] Lucinda Rodriguez NP Unavailable [phone] Lucinda Rodriguez NP Unavailable [phone] Encounter Details Date Type Department Care Team (Late st Contact Info) Description 12/25/2023 Orders Only [facility] [address] [place] [address] Abel Alvarez, DO [address] [facility] [address] [place], [place] [address] Social History Tobacco Use Types Packs/Day Years [...] week 08/12/2023 How often do you attend [facility] or taoism services? 1 to 4 times per year 08/12/2023 Do you belong to any clubs o r organizations such as mormon groups, unions, fraternal or athletic groups, or [...] place to sleep or slept in a residential (including now)? No 08/12/2023 Comments No Sex [...] EDT Office Visit [facility] [address] [facility] [facility] [phone] Abel Alvarez DO [address] [facility] [place] [address] documented as of this encounter Procedures Procedure Name Priority Date/Time Associated Diagnosis Comments US PELVIS & TRANSVAG Routine 12/25/2023 11:46 AM EDT documented in this encounter Results * US PELVIS & TRANSVAG (12/25/2023 11:46 AM EDT) Anatomical Region Laterality Modality Radiographic Veronica ging us Abel Alvarez DO IMG XR PROCEDURES Final Result documented in this encounter Visit Diagnoses Not on filedocumented in this encounter Care Teams Product Promoter Sales Person Relationship Specialty Start Date End Date Katlyn Damon MD [address] [place] [phone] PCP - External PCP Family Medicine 12/29/22 Chet Guajardo MD [address] [place] [address] PCP - General Family Medicine 10/01/23 Lucinda Rodriguez NP [facility] [place] [address] PCP - [facility] 10/21/23 Lucinda Rodriguez NP [address] [place] [phone] Nurse Practitioner Family Medicine 10/01/23 documented as of this encounter
--- OUTSIDE RECORDS SUMMARY | 2025-05-03 21:01 | XMS_ITS | Encounter Summary ---
Author Organization [facility] Address [address] [facility] [place] [address] Care Team Providers Care Certified Real Estate Appraiser Name Role Phone Katlyn Damon MD Unavailable [phone] Chet Guajardo MD Primary Care Provider [phone] Lucinda Rodriguez JAVA SOFTWARE DEVELOPER Unavailable [phone] Lucinda Rodriguez JAVA SOFTWARE DEVELOPER Unavailable [phone] Reason for Visit * Reason Onset Date Comments Med Refill 07/25/2023 Encounter Details Date Type Department Care Team (Late st Contact Info) Description 07/25/2023 [facility] [address] [place] [address] Lucinda Rodriguez, JAVA SOFTWARE DEVELOPER [address] [place] [address] Social History Tobacco Use Types Packs/Day Years Used Date Smoking Tobacco: Never Smokeless Tobacco: Never Alcohol Use Standard Drinks/Week Comments Yes 0 (1 standard drink = 0.6 oz pur e alcohol) occasional alcohol abuse Comments No Sex and Gender Information Value Date Recorded Sex Assigned at Not on file Legal Sex Female 8:00 PM EDT Gender Identity Not on file Sexual Orientation Not on file documented as of this encounter Plan of Treatment Upcoming Encounters Date Type Department Care Team (Late st Contact Info) Description 09/29/2025 1:00 PM EDT Office Visit [facility] [address] [place] [address] [place] [address] Abel Alvarez DO [address] [place] [address] [place] [address] documented as of this encounter Visit Diagnoses Not on filedocumented in this encounter Care Teams Certified Real Estate Appraiser Relationship Specialty Start Date End Date Katlyn Damon MD [address] [place] [phone] PCP - External PCP Family Medicine 12/29/22 Chet Guajardo MD [address] [place] [phone] PCP - General Family Medicine 10/01/23 Lucinda Rodriguez NP [facility] [place] [address] PCP - [facility] 10/21/23 Lucinda Rodriguez NP [address] [place] [address] Nurse Practitioner Family Medicine 10/01/23 documented as of this encounter
--- OUTSIDE RECORDS SUMMARY | 2025-05-03 21:01 | XMS_ITS | Clinical Summary ---
Author Organization [facility] Healthcare Address [address] [place] [address] Care Team Providers Care School Janitor Name Role Phone Katlyn Damon MD Unavailable [phone] Chet Guajardo MD Primary Care Provider [phone] Lucinda Rodriguez NP Unavailable [phone] Lucinda Rodriguez NP Unavailable [phone] Allergies Active Allergy Reactions Criticality Noted Date Comments Cat Dander 08/22/2023 Medications albuterol HFA 90 mcg/act inhalerIndication s:Mild intermittent asthma, unspecified whether complicated (HCC) Inhale 2 puffs every 6 (six) hours if needed for wheezing or shortness of breath 18 g 4 Active metFORMIN XR (Glucophage-XR) 500 MG 24 hr tabletIndications :Encounter for weight management TAKE 1 TABLET (500 MG) BY MOUTH IN THE EVENING. TAKE WITH MEALS DO NOT CRUSH, CHEW, OR SPLIT. 90 tablet 3 5 11/11/19 26 Active ethynodiol-ethiny l estradiol (Kelnor, Zovia) 1-35 MG-MCG tabletIndications : control counseling Take 1 tablet by mouth in the morning. 28 tablet 12 5 12/12/19 26 Active montelukast (Singulair) 10 MG tabletIndications :Mild intermittent asthma, unspecified whether complicated (HCC) Take 1 tablet (10 mg) by mouth at bedtime 90 tablet 5 05/08/20 25 Active Active Problems Problem Noted Date Diagnosed Date Rash 02/09/2025 Candidiasis of breast 01/04/2025 Body mass index (BMI) 39.0-39.9, adult PCOS (polycystic ovarian syndrome) 06/26/2024 Assessment & Plan (09/10/2024 10:26 AM EST): Taking metformin Check insulin /A1c levels Kim prescribing Intramural, submucous, and subserous leiomyoma o f uterus 05/18/2024 Morbid (severe) obesity due to excess calories 0 03/12/2024 Assessment & Plan (03/10/2025 5:59 AM EDT): Discussed with patient their BMI (actual, verses recommended). We have also discussed lifestyle modifications: attempts to perform physical activity as chronic conditions allow, also to monitor dietary intake: increasing protein/fruits/veggies and lowering carb intake (unless contraindicated). Limit sodas, juices, and sugary drinks. Assessment & Plan (09/10/2024 6:30 AM EST): Discussed with patient their BMI (actual, verses recommended). We have also discussed lifestyle modifications: attempts to perform physical activity as chronic conditions allow, also to monitor dietary intake: increasing protein/fruits/veggies and lowering carb intake (unless contraindicated). Limit sodas, juices, and sugary drinks. Fibroids 12/25/2023 Episode of heavy vaginal bleeding 12/25/2023 Insulin resistance 10/14/2023 Assessment & Plan (09/10/2024 10:26 AM EST): Is currently taking metformin Check insulin and A1c toward 11/13 Abnormal menstrual cycle 10/14/2023 EMILY (iron deficiency anemia) 09/20/2023 Assessment & Plan (03/10/2025 10:32 AM EDT): Recent recheck of iron levels 71 (03/15) and currently on no iron, 4 months prior 105 this draw was while on iron After discussion with pt we will recheck labs again in 3 months to see if iron level stays stable or if we will need to restart supplements No family hx of anemias Assessment & Plan (09/10/2024 10:03 AM EST): Takes ferrous sulfate Check labs yearly and prn sxs changes Menses is a lot maxillofacial pathology now d/t removal of fibroids, will continue the ferrous sulfate and recheck labs end of October and if good consider stopped ferrous sulfate Assessment & Plan (03/12/2024 10:02 AM EDT): Continues with ferrous sulfate, Will check labs Cont with GI Assessment & Plan (10/01/2023 2:19 PM EDT): Continue with use of ferrous sulfate Check labs in 4 weeks Fu here in 8 weeks Hypertriglyceridemia 09/18/2023 Other specified anemias 09/17/2023 Menorrhagia with regular cycle 08/22/2023 Assessment & Plan (10/01/2023 2:20 PM EDT): Pt to call with dr martel for further evaluation into her heavy periods Which likely cause of anemia Encounter for wellness examination in adult 07/2023 Assessment & Plan (09/10/2024 6:34 AM EST): Reviewed Ht/Wt/BMI Recommend eye exam yearly Recommend dental exams twice a year Balance work/leisure activities Exercises is recommended most days of the week (appropriate as chronic conditions allow) Follow up yearly and prn Assessment & Plan (08/22/2023 11:18 AM EST): Order for wellness labs Elevated blood pressure reading 08/22/2023 Assessment & Plan (09/10/2024 10:25 AM EST): Recheck: large cuff, sitting LUE: 140/100, RUE 128/96 DASH diet Exercises Recommend weight loss even 10-15 pounds would significantly impact her blood pressure Assessment & Plan (08/22/2023 11:20 AM EST): Check labs, hand out on DASH diet given Fu in 4 weeks consider meds if still elevated Recommend weight loss as well History of COVID-19 07/25/2023 Mild intermittent asthma 07/25/2023 Assessment & Plan (03/10/2025 5:59 AM EDT): Medication: singulair, albuterol Albuterol use: Assessment & Plan (09/10/2024 10:02 AM EST): Medication: singulair, albuterol No weekly use, minimal in general Assessment & Plan (03/12/2024 10:02 AM EDT): Cont w singulair Fu in 6 months Assessment & Plan (08/22/2023 10:33 AM EST): Uses albuterol prn, but as long as taking signulair minimal symptoms Refill both Fu every 6 hours Resolved Problems Problem Noted Date Diagnosed Date Resolved Date Poison carlos 02/01/2025 03/10/2025 Class 3 severe obesity with body mass index (BMI) of 40.0 to 44.9 in adult 10/01/2023 4 BMI 40.0-44.9, adult 08/22/2023 024 Assessment & Plan (08/22/2023 11:19 AM EST): Will check labs, fu in 4 weeks Will start developing a weight loss plan with her Sinus tachycardia 07/25/2023 08/22/2023 Encounters Date Type Department Care Team Description 05/03/2025 10:40 AM EDT Procedure Visit [facility] [address] [place] [address] Abel Martel DO ASCUS with positive high risk HPV cervical; Encounter for repeat Papanicolaou smear of cervix; Vaginal discharge; Vaginal itching 05/03/2025 Bamboo flowsheet [facility] [address] [place] [address] Abel Martel DO 04/26/2025 Travel 03/10/2025 9:40 AM EDT Office Visit [facility] [address] [place] [phone] Lucinda Rodriguez NP Iron deficiency anemia, unspecified iron deficiency anemia type (Primary Dx); Morbid (severe) obesity due to excess calories ([facility]) 03/10/2025 Abstract [facility] [address] [place] [phone] Lucinda Rodriguez NP 03/10/2025 Bamboo flowsheet [facility] [address] [place] [phone] Lucinda Rodriguez NP 03/08/2025 Results Follow-Up [facility] [address] [place] [phone] Ting Levin MA ALL CBC WITH AUTO DIFF, [facility] IRON 03/08/2025 Clinisync Result Encounter [facility] External Department Unsolicited Lucinda Rodriguez NP 03/03/2025 Travel 03/01/2025 Telephone [facility] [address] [place] [phone] Lucinda Rodriguez NP 02/09/2025 Refill [facility] [address] [place] [phone] Lucinda Rodriguez NP Rash (Primary Dx) 02/05/2025 Refill [facility] [address] [place] [phone] Lucinda Rodriguez NP Mild intermittent asthma, unspecified whether complicated (HCC) 02/01/2025 Refill [facility] [address] [place] [phone] Lucinda Rodriguez NP Poison carlos (Primary Dx) 02/01/2025 Telephone [facility] [address] [place] [address] Lucinda Rodriguez NP from Last 3 Months Immunizations Immunization Administration Dates Next Due Hep B, adult 07/17/2012,01/31/2012,12/31/2011 Influenza, Unspecified 04/21/2023 Influenza, seasonal, injectable 04/18/2020,05/02,04/17/2013 Pfizer Purple Cap SARS-CoV-2 Vaccination 022,04/04/2021,03/14/2021 Tdap 12/31/2011 Family History Medical History Relation Name Comments No Known Problems Brother Emphysema Father Medardo Hypertension Father Medardo Legionnaire's Disease Father Medardo Cancer Maternal Grandmother Poly Pancreatic cancer Maternal Grandmother Poly No Known Problems Mother Cancer Paternal Grandmother Marisel Relation Name Status Comments Brother Father Medardo Maternal Grandmother Poly Mother Paternal Grandmother Marisel Social History Tobacco Use Types Packs/Day Years Used Date Smoking Tobacco: Never Smokeless Tobacco: Never Tobacco Cessation:Counseling Given: [...] How often do you attend chur or mosque services? 1 to 4 times per year 09/10/2024 Do you belong to any clubs o r organizations such as mandaen groups, unions, fraternal or athletic groups, or [...] Recorded Patient Health Questionnaire-2 Score 0 10/01/2023 [facility] Questionnaire Answer [...] in a usp (including now)? No 08/12/2023 Housing Stability Vital Sign Answer Kirit e Recorded In the last 12 months, was t here a time when you were not able to pay the mortgage or rent on time? No 09/10/2024 In the past 12 months, how m any times have you moved where you were living? 0 09/10/2024 At any time in the past 12 m [facility], were you homeless or living in a usp (including now)? No 09/10/2024 Comments No Sex and Gender Information Value Date Recorded Sex Assigned at Not on file Legal Sex Female 8:00 PM EDT Gender Identity Not on file Sexual Orientation Not on file Last Filed Vital Signs Vital Sign Reading Time Taken Comments Blood Pressure 140/82 05/03/2025 11:00 AM EDT Pulse 90 03/10/2025 9:46 AM EDT Temperature 36.6 C (97.8 F) 03/10/2025 9:46 AM EDT Respiratory Rate 18 03/10/2025 9:46 AM EDT Oxygen Saturation 97% 03/10/2025 9:46 AM EDT Inhaled Oxygen Concentration - - Weight 111 kg (243 lb 11.2 oz) 05/03/2025 11:00 AM EDT Height 165.1 cm (5' 5 ) 05/03/2025 11:00 AM EDT Body Mass Index 40.55 05/03/2025 11:00 AM EDT Plan of Treatment Upcoming Encounters Date Type Department Care Team (Late st Contact Info) Description 09/29/2025 1:00 PM EDT Office Visit [facility] [address] [place] [address] Abel Martel DO [address] [place] [address] [place] [address] Health Maintenance Due Date Last Done Comments Influenza Vaccine (#1) 2025 4, 04/21/2023, 04/18/2020, Additional history exists Pap Smear 09/24/2027 09/23/2024, 04/16/2023, 02/19 Cervical Cancer Screening 04/16/2028 HPV/Cotest 04/16/2028 04/16/2023 Procedures Procedure Name Priority Date/Time Associated Diagnosis Comments VITAMIN B12 Routine 03/08/2025 6:50 AM EDT [facility] FERRITIN Routine 03/08/2025 6:50 AM EDT [facility] IRON Routine 03/08/2025 6:50 AM EDT ALL CBC WITH AUTO DIFF Routine 03/08/2025 6:50 AM EDT PAP SMEAR Routine 09/23/2024 12:00 AM EST THINPREP PAP AND HPV MRNA E6/E7 W/RFL HPV 16,18/45 Routine 04/16/2023 2:33 PM EDT Well woman exam with routine gynecological exam from Last 3 Months or Most Recently Relevant to Health Maintenance Results * VITAMIN B12 (03/08/2025 6:50 AM EDT) VITAMIN B12 406 232 - 1245 pg/mL [facility] Comment: Performed at: - [address] [id number] Automatic Driller And Reamer: Germain Alicia PhD, Phone: [phone] 03/08/2025 6:50 AM EDT 03/08/2025 6:52 AM EDT Narrative CLINISYNC - 03/09/2025 4:07 AM EDT Lucinda Rodriguez SALES AND EVENTS COORDINATOR LAB BLOOD ORDERABLES Final Resu lt [facility] TB * HMHP IRON (03/08/2025 6:50 AM EDT) TB IRON 71.0 50.0 - 170.0 ug/dL [facility] 03/08/2025 6:50 AM EDT 03/08/2025 6:52 AM EDT Narrative CLINISYNC - 03/08/2025 9:56 AM EDT Lucinda Rodriguez SALES AND EVENTS COORDINATOR CLINISYNC Final Result Performing Organization Address [facility] Co de Phone Number CLINISYNC TB * [facility] FERRITIN (03/08/2025 6:50 AM EDT) Pathologist [facility] FERRITIN 121.0 8.0 - 252.0 ng/mL [facility] 03/08/2025 6:50 AM EDT 03/08/2025 6:52 AM EDT Narrative CLINISYNC - 03/08/2025 10:52 AM EDT Lucinda Rodriguez SALES AND EVENTS COORDINATOR CLINISYNC Final Result Performing Organization Address [facility] Co de Phone Number CLINISYNC TBH * (ABNORMAL) ALL CBC WITH AUTO DIFF (03/08/2025 6:50 AM EDT) TBH WBC 7.7 4.0 - 11.0 10 3/uL TBH TBH RBC 4.01(L) 4.20 - 5.40 10 6/uL TBH TBH HGB 12.1 12.0 - 16.0 g/dL TBH TBH HCT 35.9(L) 36.0 - 48.0 % TBH TBH MCV 89.5 81.0 - 99.0 fL TBH TBH MCH 30.2 26.7 - 34.0 pg TBH TBH MCHC 33.7 29.9 - 35.2 g/dL TBH TBH RDW 12.5 11.0 - 15.0 % TBH TBH PLT 289 150 - 450 10 3/uL TBH TBH MPV 10.4 9.5 - 13.5 fL TBH NEUTROPHILS PERCENT AUTO 57.9 43.0 - 75.0 % TBH LYMPHOCYTES PERCENT AUTO 30.0 20.5 - 60.0 % TBH MONOCYTES PERCENT AUTO 9.0 1.7 - 12.0 % TBH TBH EO % 2.3 0.9 - 7.0 % TBH BASOPHILS PERCENT AUTO 0.8 0.2 - 2.0 % TBH IMMATURE GRANULOCYTES PCT AUTO 0.0 0.0 - 0.5 % TBH NEUTROPHILS ABSOLUTE AUTO 4.5 1.4 - 6.5 10 3/uL TBH LYMPHOCYTES ABSOLUTE AUTO 2.3 1.2 - 3.8 10 3/uL TBH MONOCYTES ABSOLUTE AUTO 0.7 0.3 - 0.8 10 3/uL TBH TBH EO # 0.2 0.0 - 0.7 10 3/uL TBH BASOPHILS ABSOLUTE AUTO 0.1 0.0 - 0.1 10 3/uL TBH IMMATURE GRANULOCYTES ABS AUTO 0.00 0.00 - 0.03 10 3/uL TBH 03/08/2025 6:50 AM EDT 03/08/2025 6:52 AM EDT Narrative CLINISYNC - 03/08/2025 7:23 AM EDT us Lucinda Rodriguez SALES AND EVENTS COORDINATOR CLINISYNC Final Result [facility] * Pap Smear (09/23/2024 12:00 AM EST) Swab Cervical swab / Unknown Kim Nurse [facility] LAB CYTOLOGY ORDERABLES Final Result EXTERNAL LAB * THINPREP PAP AND HPV MRNA E6/E7 W/RFL HPV 16,18/45 (04/16/2023 2:33 PM EDT) Abel Martel DO LAB BLOOD ORDERABLES Final Resul t EXTERNAL LAB from Last 3 Months or Most Recently Relevant to Health Maintenance Insurance [employer]BS Care Teams School Janitor Relationship Specialty Start Date End Date Katlyn Damon MD [address] [place] [phone] PCP - External PCP Family Medicine 12/29/22 Chet Guajardo MD [address] [place] [phone] PCP - General Family Medicine 10/01/23 Lucinda Rodriguez NP [facility] [place] [address] PCP - [facility] 10/21/23 Lucinda Rodriguez NP [address] [place] [address] Nurse Practitioner Family Medicine 10/01/23
--- OUTSIDE RECORDS SUMMARY | 2025-05-03 21:01 | XMS_ITS | Encounter Summary ---
Author Organization [facility] Address [address] [place] [address] Care Team Providers Care Instructor Modeling Name Role Phone Katlyn Damon MD Unavailable [phone] Chet Guajardo MD Primary Care Provider [phone] Lucinda Rodriguez NP Unavailable [phone] Lucinda Rodriguez NP Unavailable [phone] Encounter Details Date Type Department Care Team (Latest Contact Info) Description 04/26/2025 Travel Social History Tobacco Use Types Packs/Day Years [...] often do you attend chur ch or scientologist services? 1 to 4 times per year 09/10/2024 Do you belong to any clubs o r organizations such as worship groups, unions, fraternal or athletic groups, or [...] Patient Health Questionnaire-2 Score 0 10/01/2023 [facility] - [...] place to sleep or slept in a fpc (including now)? No 08/12/2023 Housing Stability Vital Sign Answer Kirit e Recorded In the last 12 months, was t here a time when you were not able to pay the mortgage or rent on time? No 09/10/2024 In the past 12 months, how m any times have you moved where you were living? 0 09/10/2024 At any time in the past 12 m [facility], were you homeless or living in a fpc (including now)? No 09/10/2024 Comments No Sex [...] EDT Office Visit [facility] [address] [place] [place] [address] Abel Alvarez DO [address] [place], [place] [phone] documented as of this encounter Visit Diagnoses Not on filedocumented in this encounter Care Teams Instructor Modeling Relationship Specialty Start Date End Date Katlyn Damon MD [address] [place] [address] PCP - External PCP Family Medicine 12/29/22 Chet Guajardo MD [address] [place] [address] PCP - General Family Medicine 10/01/23 Lucinda Rodriguez NP [facility] [place] [address] PCP - [facility] 10/21/23 Lucinda Rodriguez NP [address] [place] [address] Nurse Practitioner Family Medicine 10/01/23 documented as of this encounter
--- OUTSIDE RECORDS SUMMARY | 2025-05-03 21:02 | XMS_ITS | CCD ---
Author Organization [facility]iniSytn Care Team Providers Care Long Term Name Role Phone Alice Tamez Unavailable DIPESH, [...] Primary Care Provider Katlyn Damon MD Unavailable [phone] Chet Guajardo MD Primary Care Provider Jennifer CENTRIFUGAL SEPARATOR, Lucinda Unavailable Jennifer CENTRIFUGAL SEPARATOR, Lucinda Unavailable MELANI ZAMAN Referring Unavailable LUCINDA RODRIGUEZ Primary Care Unavailable MELANI ZAMAN Admitting Unavailable MELANI ZAMAN Attending Unavailable MELANI ZAMAN Admitting Unavailable MELANI ZAMAN Attending Unavailable JENNIFER LUCINDA SHEPHERD Primary Care Unavailable Israel VALENCIANCathy M Unavailable Unavailab le MELANI ZAMAN Attending Unavailable AICSILVANO, LUCINDA SHEPHERD Primary Care Unavailable DARLENE JULIEN Attending Unavailable AICHOLEGARIO, LUCINDA CORA Primary Care Unavailable DARLENE JULIEN Attending Unavailable MELANI ZAMAN Referring Unavailable JENNIFER, LUCINDA SHEPHERD Primary Care Unavailable MELANI ZAMAN Attending Unavailable AICHHOLDavid, LUCINDA CORA Primary Care Unavailable DARLENE JULIEN Attending Unavailable AICHHOLZ, LUCINDA CROA Primary Care Unavailable MELANI ZAMAN Attending Unavailable JENNIFER, LUCINDA CORA Primary Care Unavailable Abel Alvarez DO Attending Provider Kim, Abel Admitting Unavailable Kim, Abel Attending Unavailable Kim, Abel Admitting Unavailable NO FAMILY, PHYSICIAN Primary Care Unavailable Kim, Abel Attending Unavailable Kim, Abel Admitting Unavailable NO FAMILY, PHYSICIAN Primary Care Unavailable Kim, Abel Attending Unavailable ADRIANAHHOLDavid, LUCINDA Attending Unavailable KIM, ABEL Attending Unavailable KIM, ABEL Attending Unavailable AICHHOLZ, LUCINDA Attending Unavailable AICHHOLZ, LUCINDA Attending Unavailable Allergies Allergy Classification Reported Allergen(s) Allergy Type Date of Onset Reaction(s) Facility (20 sources) Cat Hair Extract Propensity to adverse reactions 4 [facility] Medications Current Medications Medication Drug Class(es) Dates Sig (Normalized) Sig (Original) [id number] 200 actuat albuterol 0.09 mg/actuat metered dose [...] HAS PARKINSON'S DISEASE. Ethinyl Estradiol / ethynodiol (11 sources) Progestin, Estrogen Start: 12-11-2024 End: 12-11-2025 [...] Orally Once a day Active Ethynodiol Diac-Eth Estradio l (KELNOR 1/35 PO) (7 sources) Start: 09-27-2024 End: 03-10-2025 Ethynodiol Diac-Eth Estradio l (KELNOR 1/35 PO) Take 1 tablet by mouth Daily 09/27/2024 03/10/2025 Discontinued (Therapy completed) Start: 09-27-2024 Ethynodiol Joann c-Eth Estradiol (KELNOR [...] Above: 92% predniSONE 20 mg oral tablet (7 sources) Start: 02-09-2025 End: 03-10-2025 predniSONE (Deltasone) 20 MG tablet Indications: Rash 1 pill three times a day for 3 days, then 1 pill twice a day for 3 days, then 1 pill once a day for 3 days. Take with food 18 tablet 02/09/2025 03/10/2025 Discontinued (Therapy completed) Start: 06-11-2023 take 1 tablet by connie th every twelve hours predniSONE 20 MG 1 [...] mg oral capsule (20 sources) Vitamin B12 End: 03-10-2025 Cyanocobalamin (B-12) 1000 MCG capsule Take by mouth 03/10/2025 Discontinued (Therapy completed) Completed/Discontinued Medications Medication Drug Class(es) Dates Sig [...] for pain 650 mg, oral, Once, On 06/26/24 at 1345, For 1 dose, Administer tablet [...] 1.5 mg/ml oral solution (2 sources) Uncompetitive V-jddgiz-L-aspartate Receptor Antagonist, Sigma-1 Agonist Start: 06-11-2023 take 10 mL by mouth every eight hours [place] DM 7.5-7.5 MG/5ML 10 mL Orally every [...] hours 01/24/2024 03/12/2024 Discontinued (Therapy completed) levonorgestrel 0.579434 mg/hr intrauterine system (3 sources) Progestin, Progestin-containing [...] 10 day(s) Sep, Not-Taking polyethylene glycol 3350 51906 mg powder for oral solution (4 sources) [...] unspecified] Onset: 06-26-2024 Resolved: 06-26-2024 06-26-2024 Chronic Deficiency and other anemia (20 sources) Iron deficiency anemia; Translations: [Iron deficiency anemia, unspecified] Onset: 09-20-2023 09-20-2023 Episodic Disorders of lipid metabolism (20 sources) Hypertriglyceridemia; Translations: [Pure hyperglyceridemia] Onset: 09-18-2023 09-18-2023 Chronic Immunizations and screening for infectious disease (8 sources) Contact with and (suspected) exposure to other viral communicable diseases; Translations: [Encounter for screening for human papillomavirus (HPV)] Onset: 10-05-2021 Resolved: 10-12-2021 Episodic Menstrual disorders (20 sources) Menorrhagia; Translations: [Excessive and frequent menstruation with regular cycle] Onset: 08-22-2023 08-22-2023 Chronic Mycoses (9 sources) Candidiasis; Translations: [Other sites of candidiasis] [...] metabolic disorders (20 sources) Body mass index 30+ - obesity; Translations: [Body mass index (BMI) 39.0-39.9, adult] Onset: 09-10-2024 09-10-2024 Chronic Other skin disorders (6 sources) Eruption; Translations: [Rash and other nonspecific [...] Classification Problem Date Documented Da te Episodic/Chronic Allergic reactions (8 sources) Contact dermatitis due to poison carlos; Translations: [Allergic contact dermatitis due to plants, except food] Onset: 02-01-2025 Resolved: 03-10-2025 02-01-2025 Episodic Benign neoplasm of uterus (20 sources) Uterine [...] [Other specified anemias] Onset: 09-17-2023 09-17-2023 Episodic Other and unspecified benign neoplasm (20 [...] AUTO DIFFon BASOPHILS ABSOLUTE AUTO 0.1 [facility] Basophils/100 WBC (Bld) 0.8 % 0.2 - 2.0 % [facility] Eosinophils/100 WBC (Bld) 2.3 % 0.9 - 7.0 % [facility] Erythrocyte distribution width (RBC) [Ratio] 12.5 % 11.0 - 15.0 % [facility] Hematocrit (Bld) [Volume fraction] 35.9 % Low 36.0 - 48.0 % [facility] Hemoglobin (Bld) [Mass/Vol] 12.1 g/dL 12.0 - 16.0 g/dL [facility] IMMATURE GRANULOCYTES ABS AUTO 0 [facility] Immature granulocytes/100 WBC (Bld) 0 % 0.0 - 0.5 % [facility] Interpretation and review of laboratory results Abnormal [facility] LYMPHOCYTES ABSOLUTE AUTO 2.3 [facility] Lymphocytes/100 WBC (Bld) 30 % 20.5 - 60.0 % [facility] MCH (RBC) [Entitic mass] 30.2 pg 26. 7 - 34.0 pg [facility] MCHC (RBC) [Mass/Vol] 33.7 g/dL 29.9 - 35.2 g/dL [facility] MCV (RBC) [Entitic vol] 89.5 fL 81.0 - 99.0 fL [facility] MONOCYTES ABSOLUTE AUTO 0.[address] [facility] Monocytes/100 WBC (Bld) 9 % 1.7 - 12.0 % [facility] NEUTROPHILS ABSOLUTE AUTO 4.5 [facility] Neutrophils/100 WBC (Bld) 57.9 % 43.0 - 75.0 % [facility] Platelet mean volume (Bld) [Entitic vol] 10.4 fL 9.5 - 13.5 fL [facility] TBH EO # 0.2 [facility] PLT 289 [facility] RBC 4.01 Low [facility] WBC 7.7 [facility] ALL CBC WITH AUTO DIFFon BASOPHILS ABSOLUTE AUTO 0.[address] [facility] Basophils/100 WBC (Bld) 0.9 % 0.2 - 2.0 % [facility] Eosinophils/100 WBC (Bld) 1.4 % 0.9 - 7.0 % [facility] Erythrocyte distribution width (RBC) [Ratio] 12.3 % 11.0 - 15.0 % [facility] Hematocrit (Bld) [Volume fraction] 37.4 % 36.0 - 48.0 % [facility] Hemoglobin (Bld) [Mass/Vol] 12.5 g/dL 12.0 - 16.0 g/dL [facility] IMMATURE GRANULOCYTES ABS AUTO 0.02 [facility] Immature granulocytes/100 WBC (Bld) 0.3 % 0.0 - 0.5 % [facility] LYMPHOCYTES ABSOLUTE AUTO 1.9 [facility] Lymphocytes/100 WBC (Bld) 23.5 % 20.5 - 60.0 % [facility] MCH (RBC) [Entitic mass] 29.8 pg 26. 7 - 34.0 pg [facility] MCHC (RBC) [Mass/Vol] 33.4 g/dL 29.9 - 35.2 g/dL [facility] MCV (RBC) [Entitic vol] 89 fL 81.0 - 99.0 fL [facility] MONOCYTES ABSOLUTE AUTO 0.[address] [facility] Monocytes/100 WBC (Bld) 7.4 % 1.7 - 12.0 % [facility] NEUTROPHILS ABSOLUTE AUTO 5.3 [facility] Neutrophils/100 WBC (Bld) 66.5 % 43.0 - 75.0 % [facility] Platelet mean volume (Bld) [Entitic vol] 10.3 fL 9.5 - 13.5 fL [facility] TBH EO # 0.1 [facility] PLT 228 [facility] RBC 4.2 [facility] WBC 8 [facility] Colposcopyon 10-13-2024 Keyonna Burleson LPN 10/18/2024 12:19 PM Colposcopy Date/Time: [...] visibility: fully visualized Lesion visualized: fully visualized [facility] HCG ( test) Ql (U)o n 10-13-2024 Interpretation and review of laboratory results Normal [facility] Preg Test, Ur Negative Negative [facility] Silas 10-13-2024 L -- Specimen: [id number] Received: 10/14/24 Status: AGNES Conroysonu Num: [id number] Spec Type: Surgical Subm Dr: Abel Alvarez Tissues: A Endocervix - Curettings (ECC) B Cervical Biopsy/Leep Biopsy (CERVICAL BX) Procedures: HE/Benjamin, Gross/Micro L4/2 -- Age/ Patient Sex Location Account Attending Physician -- Barb Estrada 34/F LABELL [id number] Abel Alvarez -- SPEC NUM: [id number] RECD: 10/14/24 STATUS: AGNES MORENO NUM: [id number] LASHELL: 10/13/[address]: Abel Alvarez ENTERED: 10/14/24 [facility] DR: Laurie,Lab SPEC TYPE: Surgical DEPT: JEANE SILVERIO ENTERED BY: [id number] RECV BY: [id number] ORDERED: HE/4, Gross/Micro L4/2 ORDERED: HE/4, Gross/Micro [...] significance, human papilloma virus positive -- Specimen: [id number] Received: 10/14/24 Status: AGNES Kevin Num: [id number] Spec Type: Surgical Subm Dr: Abel Alvarez Tissues: A Endocervix - Curettings (ECC) B Cervical Biopsy/Leep Biopsy (CERVICAL BX) Procedures: HE/4, Gross/Micro L4/2 -- Patient: Barb Estrada [id number] (Continued) -- Specimen: [id number] Received: 10/14/24 (Continued) Signed (signatu re on file) Hung Rincon MD 10/15/24 1205 -- Specimen: [id number] Received: 10/14/24 Status: AGNES Moreno Num: [id number] Spec Type: Surgical Subm Dr: Abel Alvarez Tissues: A Endocervix - Curettings (ECC) B Cervical Biopsy/Leep Biopsy (CERVICAL BX) Procedures: Felicia TORRES/Amanda L4/2 -- Patient: Barb Estrada [id number] (Continued) -- Specimen: [id number] Received: 10/14/24 (Continued) Gross Description Part A is received in formalin labeled with the patients name, date of , and ECC is a pale pedro, mucoid material, admixed with pedro-pink feathery tissue fragments, 0.8 x 0.5 x 0.1 cm in aggregate. The specimen is filtered and entirely submitted in a single cassette. (1, ns, [id number] A) Part B is received in formalin labeled with the patients name, date of , and Cervix, 10:00 BX is a pale pedro, feathery, 0.3 cm in greatest dimension tissue bit. The specimen is entirely submitted in a single cassette. (1, ns, [id number] B) Microscopic Description A B: Microscopic examination is performed. CPT Codes 01956 x2 -- -- Specimen: [id number] Received: 10/14/24 Status: AGNES Moreno Num: [id number] Spec Type: Surgical Subm Dr: Abel Alvarez Tissues: A Endocervix - Curettings (ECC) B Cervical Biopsy/Leep Biopsy (CERVICAL BX) Procedures: HE/4, Felicia/Micro L4/2 -- Patient: Barb Estrada [id number] (Continued) -- Signed (signatu re on file) Hung Rincon MD 10/15/24 1205 Normal [facility] IGP,APTIMA HPV,AGE GDLNon AGE GDLN ACOG TESTING Note . [facility] Comment on above: TESTS RESULT FLAG UN ITS REF RANGE LAB Clinician Provided Cytology Information Source.............Cervix;Endocervix No. of containers..01 ThinPrep Vial Age Algo ACOG Shanita... 31 FLAG LEGEND: L-Low Normal,H-High Normal,LL-Alert Low,HH-Alert High <-Panic Low,>-Panic High,A-Abnormal,AA-Critical Abnormal Performed at: 01 =[address] [place] [address] Loida Olivares MD, HPV APTIMA Positive Abnormal Negative [facility] Comment on above: This nucleic acid am plification test detects fourteen high- risk HPV types (16,18,31,33,35,39,45,51,52,56,58,59,66,68) without differentiation. Performed at: =[address] [id number] Launch Leader: Loida Olivares MD, Phone: [phone] Performed at: [address] [id number] Launch Leader: Loida Olivares MD, Phone: [phone] IGP, APTIMA HPV, RFX 16/18,45 Note Abnormal . [facility] Comment on above: TESTS RESULT FLAG UN ITS REF RANGE LAB DIAGNOSIS: [A] 02 EPITHELIAL CELL ABNORMALITY. ATYPICAL SQUAMOUS CELLS OF UNDETERMINED SIGNIFICANCE (ASC-US). Specimen adequacy: 02 Satisfactory for evaluation. Endocervical and/or squamous metaplastic cells (endocervical component) are present. Performed by: 02 Sarahy Burnham, Tuber Machine Operator Helper (ASC) Electronically si... 02 Holly Moya MD, [...] Low,>-Panic High,A-Abnormal,AA-Critical Abnormal Performed at: [address] [facility] [address] Loida Olivares MD, Interpretation and review of laboratory results Abnormal [facility] [employer] BRUSH-SPATULA CERVIX ENDOCERVIX [facility] US SONOHYSTEROGRAMon 025 Source Facility: [facility] Interpreted by: Summer Jacinto Indication ======== Fertility [...] Radiology, Radiologist, MD - 09/10/2024 Source Facility: [facility] Interpreted by: Summer Jacinto Indication ======== Fertility [...] Transabdominal and transvaginal ultrasound examination. View: Sufficient [facility] US SONOHYSTEROGRAMOrdered By : Radiologist Radiology on 09-10-2024 [facility] Work Phone: No Panel Informationon 08-26 SURG1 [facility] SURG1 SEE COMMENT [facility] SURGICAL PATHOLOGY EXAMon SURG Pathology report.total [facility] SURG1 Surgical Pathology Case: [id number] [facility] SURG1 Authorizing Provider: Melani Zaman MD Collected: 08/21/2024 1350 [facility] SURG1 Ordering Location: [facility] OR Received: 08/21/2024 1432 [facility] SURG1 Pathologist: Flavio Melara MD [facility] SURG1 Specimen: FIBROID MYOMECTOMY, UTERINE FIBROID [facility] SURG1 Path report.final diagnosis [facility] SURG1 A. Uterine fibroid, myomectomy: [facility] SURG1 --Secretory pattern endometrium [facility] SURG1 --Fragments of smooth muscle with ischemic changes and hyalinization [facility] SURG1 Attending: Bhavani Blackwood S. Avril, R. Redline. [facility] SURG1 [facility] SURG1 Laboratory comment [facility] SURG1 By the signature on this report, the individual or group listed as making the Final Interpretation/Joann gnosis certifies that they have reviewed this case. [facility] SURG1 Path report.relevant Hx [facility] SURG1 Pre-op diagnosis: [facility] SURG1 Submucous uterine fibroid [D25.0] [facility] SURG1 Path report.gross observation [facility] SURG1 A: Received in formalin in 3 mesh socks, labeled with the patient's name and hospital number and UTERINE FIBROID , are multiple friable trujillo-white to yellow fragments of tissue, and minimal clotted blood and mucus, aggregating to 5.0 x 4.0 x 1.2 cm and weighing 8.30 grams. Areas of calcification, necrosis, or softening, are not identified. Kettle Girl sections are submitted in 2 cassettes. [facility] SURG1 MAD [facility] Pre-op diagnosis: Submucous uterine fibroid [D25.0] Original Ordering [facility] ( test) Ql (U)o n 08-21-2024 Interpretation and review of laboratory results Normal [facility] Work Phone: Preg Test, Ur Negative Negative [facility] Work Phone: [facility] Work Phone: Surgical pathology studyon 0 08-21-2024 Surgical pathology study Pathology report.total SEE COMMENT Surgical Pathology Case: [id number] Authorizing Provider: Melani Zaman MD Collected: 08/21/2024 1350 Ordering Location: [facility] OR Received: 08/21/2024 1432 Pathologist: Flavio Melara MD Specimen: FIBROID MYOMECTOMY, UTERINE FIBROID Path report.final diagnosis SEE COMMENT A. Uterine fibroid, myomectomy: --Secretory pattern endometrium --Fragments of smooth muscle with ischemic changes and hyalinization This case has been reviewed at the [facility] WAGE AND HOUR INVESTIGATOR consensus conference via Zoom on 08/26/24. Attending: Bhavani Blackwood, Ambiak Avila. Laboratory comment By the signature on [...] calcification, necrosis, or softening, are not identified. Kettle Girl sections are submitted in 2 cassettes. [facility] Comment on above: Order Comment: Pre-o p diagnosis: Submucous uterine fibroid [D25.0] Basic metabolic 2000 panelon 08-18-2024 Anion gap [Moles/Vol] 12 mmol/L Normal 10-20 [facility] Comment on above: Performed By: #### 2 4321-2 #### KIMBERLY LESTER ([id number]) [facility] ([facility]) [address] [place] [address]443 Calcium [Mass/Vol] 9.2 mg/dL Normal 8.6-10.3 [facility] Comment on above: Performed By: #### 2 4321-2 #### KIMBERLY LESTER ([id number]) [facility]) [address] [place] [address] 12661 Chloride [Moles/Vol] 106 mmol/L Normal 98-107 [facility] Comment on above: Performed By: #### 2 4321-2 #### KWESIIBROGELIO LESTER ([id number]) [facility]) [address] [place] [address] 92056 CO2 [Moles/Vol] 23 mmol/L Normal 21-32 [facility] Comment on above: Performed By: #### 2 4321-2 #### KIMBERLY LESTER ([id number]) [facility] ([facility]) [address] [place] [address] 21934 Creatinine [Mass/Vol] 0.72 mg/dL Normal 0.50-1.05 [facility] Comment on above: Performed By: #### 2 4321-2 #### ANAIBELITH ROB MCKAYLA ([id number]) [facility] ([facility]) [address] [place] [address] GFR/1.73 sq M.predicted MDRD (S/P/Bld) [Vol rate/Area] mL/min/{1.73_m2} Normal >60 [facility] Comment on above: Result Comment: Calc ulations of estimated GFR are performed using the 2020 CKD-EPI Study Refit equation without the race variable for the IDMS-Traceable creatinine methods. https://jasn.asnjournals.org/content/early/ASN.425 0382347 Performed By: #### 2 4321-2 #### KIMBERLY LESTER ([id number]) [facility]) [address] [place] [address] 69499 Glucose [Mass/Vol] 91 mg/dL Normal 74-99 [facility] Comment on above: Performed By: #### 2 4321-2 #### KIMBERLY LESTER ([id number]) [facility]) [address] [place] [address] 60978 Potassium [Moles/Vol] 4.2 mmol/L Normal 3.5-5.3 [facility] Comment on above: Performed By: #### 2 4321-2 #### KIMBERLY LESTER ([id number]) [facility]) [address] [place] [address] 96610 Sodium [Moles/Vol] 137 mmol/L Normal 136-145 [facility] Comment on above: Performed By: #### 2 4321-2 #### KIMBERLY LESTER ([id number]) [facility]) [address] [place] [address] 07504 Urea nitrogen [Mass/Vol] 7 mg/dL Normal 6-23 [facility] Comment on above: Performed By: #### 2 4321-2 #### KIMBERLY LESTER ([id number]) [facility]) [address] [place] [address] 83704 Blood type and Indirect anti body screen panel (Bld)on 08-18-2024 ABO group Nom (Bld) O Normal [facility] Comment on above: Performed By: #### 3 4532-2 #### ROBERT NOEL ([id number]) [facility] ([facility]) [address] [place] [address] Blood group antibody screen Ql Negative [facility] Comment on above: Performed By: #### 3 4532-2 #### ROBERT NOEL ([id number]) [facility] ([facility]) [address] [place] [address] US D Ag Ql (Bld) Positive [facility] Comment on above: Performed By: #### 3 4532-2 #### ROBERT NOEL ([id number]) [facility] ([facility]) [address] [place] [address] US CBC panel Auto (Bld)on 08-18 Erythrocyte distribution width (RBC) [Ratio] 12.5 % Normal 11.5-14.5 [facility] Comment on above: Performed By: #### 5 8410-2 #### KIMBERLY LESTER ([id number]) [facility]) [address] [place] [address] 88378 Hematocrit (Bld) [Volume fraction] 37.3 % Normal 36.0-46.0 [facility] Comment on above: Performed By: #### 5 8410-2 #### KIMBERLY LESTER ([id number]) [facility] ([facility]) [address] [place] [address] 22870 Hemoglobin (Bld) [Mass/Vol] 12.1 g/dL Normal 12.0-16.0 [facility] Comment on above: Performed By: #### 5 8410-2 #### KIMBERLY LESTER ([id number]) [facility] ([facility]) [address] [place] [address] 93827 MCH (RBC) [Entitic mass] 29.3 pg Normal 26.0-34.0 [facility] Comment on above: Performed By: #### 5 8410-2 #### KIMBERLY LESTER ([id number]) [facility] ([facility]) [address] [place] [address] 84172 MCHC (RBC) [Mass/Vol] 32.4 g/dL Normal 32.0-36.0 [facility] Comment on above: Performed By: #### 5 8410-2 #### KIMBERLY LESTER ([id number]) [facility] ([facility]) [address] [place] [address] 65497 MCV (RBC) [Entitic vol] 90 fL Normal 80-100 [facility] Comment on above: Performed By: #### 5 8410-2 #### KIMBERLY LESTER ([id number]) [facility] ([facility]) [address] [place] [address] 88114 Nucleated RBC/100 WBC (Bld) [Ratio] 0.0 /100 WBCs Normal 0.0-0.0 [facility] Comment on above: Performed By: #### 5 8410-2 #### KIMBERLY LESTER ([id number]) [facility]) [address] [place] [address] 58995 Platelets (Bld) [#/Vol] 271 x10*3/uL Normal 150-450 [facility] Comment on above: Performed By: #### 5 8410-2 #### KIMBERLY LESTER ([id number]) [facility]) [address] [place] [address] 12866 RBC (Bld) [#/Vol] 4.13 x10*6/uL Normal 4.00-5.20 [facility] Comment on above: Performed By: #### 5 8410-2 #### KIMBERLY LESTER ([id number]) [facility]) [address] [place] [address] 19230 WBC (Bld) [#/Vol] 7.9 x10*3/uL Normal 4.4-11.3 [facility] Comment on above: Performed By: #### 5 8410-2 #### KIMBERLY LESTER ([id number]) [facility]) [address] [place] [address] 30126 HCG ( test) Ql (U)o n 07-24-2024 Preg Test, Ur Negative Negative [facility] Work Phone: No Panel Informationon 07-24 [facility] Work Phone: Sonohysterogramon 07-24-2024 RETA [place] 07/24/2024 [...] Zaman will place orders for surgery and naval engineer will reach back with date and details. [...] and transvaginal ultrasound examination. View: Sufficient [facility] Radiology Study observation (narrative) [facility] HCG ( test) Ql (U)o n 06-26-2024 Interpretation and review of laboratory results Abnormal [facility] Work Phone: Preg Test, Ur Negative Abnormal Negative [facility] Work Phone: [facility] Work Phone: Surgical pathology studyon 1 08-27-2023 Surgical pathology study Pathology report.total SEE COMMENT Surgical Pathology Case: [id number] Authorizing Provider: Melani Zaman MD Collected: 06/26/2024 1043 Ordering Location: [facility] OR Received: 06/26/2024 1300 Pathologist: Chelsey [...] slide (A6) was shown at the [facility] WAGE AND HOUR INVESTIGATOR consensus conference via Zoom on 07/16/2024 Attending: [...] necrosis, softening, or hemorrhage are not identified. Kettle Girl sections are submitted in 4 cassettes. In addition, a gauze sac containing multiple white to red soft tissue fragments aggregating to 4 x 2 x 0.3 cm is present. These tissue fragments are entirely submitted in A5 and A6. [facility] Summary of Cassettes: Specimen Label Site A 1-4 Kettle Girl sections of fibroid A 5-6 Multiple tissue fragments, likely [facility]. [facility] Department of Pathology [address] [place] [address] B. Received in formalin, labeled with the patient???s name and hospital number and Left paratubal cyst is a collapsed translucent cyst 0.7 cm in its collapsed state. The pedicle of the cyst measures 1 x 0.2 x 0.2 cm. No solid areas or excrescences are identified. Cyst wall is 0.1 cm or less in thickness. The tissue fragment is entirely submitted in B1. [facility] Department of Pathology [address] [place] [address] Normal [facility] Comment on above: Order Comment: Pre-o p diagnosis: Intramural, submucous, and subserous leiomyoma of uterus [D25.1, D25.0, D25.2] Blood type and Indirect anti body screen panel (Bld)on 06-25-2024 ABO group Nom (Bld) O Normal [facility] Comment on above: Order Comment: Speci men for compatibility testing requires full first and last name, MRN, , date, time of collection, and clam shucking machine tender/turnstile collector's signature on tube(s) or it will be rejected. Please collect 1 lavender top-KEDTA OR 1 pink top-KEDTA and sign, date and time with the patient's full first and last name, MRN and . Performed By: #### 3 4532-2 #### ROBERT NOEL ([id number]) [facility] BLOOD [facility] [address] [place] [address] Blood group antibody screen Ql Negative [facility] Comment on above: Order Comment: Speci men for compatibility testing requires full first and last name, MRN, , date, time of collection, and clam shucking machine tender/turnstile collector's signature on tube(s) or it will be rejected. Please collect 1 lavender top-KEDTA OR 1 pink top-KEDTA and sign, date and time with the patient's full first and last name, MRN and . Performed By: #### 3 4532-2 #### ROBERT NOEL ([id number]) [facility] Honestly Now [facility] [address] [place] [address] US D Ag Ql (Bld) Positive [facility] Comment on above: Order Comment: Speci men for compatibility testing requires full first and last name, MRN, , date, time of collection, and clam shucking machine tender/turnstile collector's signature on tube(s) or it will be rejected. Please collect 1 lavender top-KEDTA OR 1 pink top-KEDTA and sign, date and time with the patient's full first and last name, MRN and . Performed By: #### 3 4532-2 #### ROBERT NOEL ([id number]) [facility] BLOOD [facility] [address] [place] [address] US CBC W Auto Differential pane l (Bld)on 06-25-2024 Basophils (Bld) [#/Vol] 0.07 x10*3/uL Normal 0.00-0.10 [facility] Comment on above: Performed By: #### 5 7021-8 #### ROBERT NOEL ([id number]) [facility] ([facility]) [address] [place] [address] Basophils/100 WBC (Bld) 1.0 % Normal 0.0-2.0 [facility] Comment on above: Performed By: #### 7021-8 #### ROBERT NOEL ([id number]) [facility] ([facility]) [address] [place] [address] Eosinophils (Bld) [#/Vol] 0.08 x10*3/uL Normal 0.00-0.70 [facility] Comment on above: Performed By: #### 7021-8 #### ROBERT NOEL ([id number]) [facility] ([facility]) [address] [place] [address] Eosinophils/100 WBC (Bld) 1.1 % Normal 0.0-6.0 [facility] Comment on above: Performed By: #### 5 7021-8 #### ROBERT NOEL ([id number]) [facility] ([facility]) [address] [place] [address] Erythrocyte distribution width (RBC) [Ratio] 12.9 % Normal 11.5-14.5 [facility] Comment on above: Performed By: #### 5 7021-8 #### ROBERT NOEL ([id number]) [facility] ([facility]) [address] [place] [address] Hematocrit (Bld) [Volume fraction] 37.9 % Normal 36.0-46.0 [facility] Comment on above: Performed By: #### 5 7021-8 #### ROBERT NOEL ([id number]) [facility] ([facility]) [address] [place], [place] [phone] Hemoglobin (Bld) [Mass/Vol] 12.2 g/dL Normal 12.0-16.0 [facility] Comment on above: Performed By: #### 5 7021-8 #### ROBERT NOEL ([id number]) [facility] ([facility]) [address] [place] [address] Immature granulocytes (Bld) [#/Vol] 0.02 x10*3/uL Normal 0.00-0.70 [facility] Comment on above: Performed By: #### 5 7021-8 #### ROBERT NOEL ([id number]) [facility] ([facility]) [address] [place] [phone] Immature granulocytes/100 WBC (Bld) 0.3 % Normal 0.0-0.9 [facility] Comment on above: Result Comment: Tamiko ture Granulocyte Count (IG) includes promyelocytes, myelocytes and metamyelocytes but does not include bands. Percent differential counts (%) should be interpreted in the context of the absolute cell counts (cells/UL). Performed By: #### 5 7021-8 #### ROBERT NOEL ([id number]) [facility] ([facility]) [address] [place] [address] Lymphocytes (Bld) [#/Vol] 1.74 x10*3/uL Normal 1.20-4.80 [facility] Comment on above: Performed By: #### 5 7021-8 #### ROBERT NOEL ([id number]) [facility] ([facility]) [address] [place] [phone] Lymphocytes/100 WBC (Bld) 24.6 % Normal 13.0-44.0 [facility] Comment on above: Performed By: #### 5 7021-8 #### ROBERT NOEL ([id number]) [facility] ([facility]) [address] [place], [place] [address] MCH (RBC) [Entitic mass] 28.8 pg Normal 26.0-34.0 [facility] Comment on above: Performed By: #### 5 7021-8 #### ROBERT NOEL ([id number]) [facility] ([facility]) [address] [place], [place] [address] MCHC (RBC) [Mass/Vol] 32.2 g/dL Normal 32.0-36.0 [facility] Comment on above: Performed By: #### 5 7021-8 #### ROBERT NOEL ([id number]) [facility] ([facility]) [address] [place] [address] MCV (RBC) [Entitic vol] 90 fL Normal 80-100 [facility] Comment on above: Performed By: #### 5 7021-8 #### ROBERT NOEL ([id number]) [facility] ([facility]) [address] [place] [address] Monocytes (Bld) [#/Vol] 0.61 x10*3/uL Normal 0.10-1.00 [facility] Comment on above: Performed By: #### 5 7021-8 #### ROBERT NOEL ([id number]) [facility] ([facility]) [address] [place] [address] Monocytes/100 WBC (Bld) 8.6 % Normal 2.0-10.0 [facility] Comment on above: Performed By: #### 5 7021-8 #### ROBERT NOEL ([id number]) [facility] ([facility]) [address] [place] [address] Neutrophils (Bld) [#/Vol] 4.54 x10*3/uL Normal 1.20-7.70 [facility] Comment on above: Result Comment: Perc ent differential counts (%) should be interpreted in the context of the absolute cell counts (cells/uL). Performed By: #### 5 7021-8 #### ROBERT NOEL ([id number]) [facility] ([facility]) [address] [place] [address] Neutrophils/100 WBC (Bld) 64.4 % Normal 40.0-80.0 [facility] Comment on above: Performed By: #### 5 7021-8 #### ROBERT NOEL ([id number]) [facility] ([facility]) [address] [place] [address] Nucleated RBC/100 WBC (Bld) [Ratio] 0.0 /100 WBCs Normal 0.0-0.0 [facility] Comment on above: Performed By: #### 5 7021-8 #### ROBERT NOEL ([id number]) [facility] ([facility]) [address] [place] [address] Platelets (Bld) [#/Vol] 319 x10*3/uL Normal 150-450 [facility] Comment on above: Performed By: #### 5 7021-8 #### ROBERT NOEL ([id number]) [facility] ([facility]) [address] [place] [address] RBC (Bld) [#/Vol] 4.23 x10*6/uL Normal 4.00-5.20 [facility] Comment on above: Performed By: #### 5 7021-8 #### ROBERT NOEL ([id number]) [facility] ([facility]) [address] [place] [address] WBC (Bld) [#/Vol] 7.1 x10*3/uL Normal 4.4-11.3 [facility] Comment on above: Performed By: #### 5 7021-8 #### ROBERT NOEL ([id number]) [facility] ([facility]) [address] [place] [address] CBC AND DIFFERENTIALon Basophils/100 WBC (Bld) 1 % 0.0 - 2.0 % [facility] Eosinophils/100 WBC (Bld) 1.1 % 0.0 - 6.0 % [facility] Erythrocyte distribution width (RBC) [Ratio] 12.9 % 11.5 - 14.5 % [facility] Hematocrit (Bld) [Volume fraction] 37.9 % 36.0 - 46.0 % [facility] Hemoglobin (Bld) [Mass/Vol] 12.2 g/dL 12.0 - 16.0 g/dL [facility] Lymphocytes/100 WBC (Bld) 24.6 % 13.0 - 44.0 % [facility] MCH (RBC) [Entitic mass] 28.8 pg 26. 0 - 34.0 pg [facility] MCHC (RBC) [Mass/Vol] 32.2 g/dL 32.0 - 36.0 g/dL [facility] MCV (RBC) [Entitic vol] 90 fL 80 - 100 fL [facility] Monocytes/100 WBC (Bld) 8.6 % 2.0 - 10.0 % [facility] Neutrophils/100 WBC (Bld) 64.4 % 40.0 - 80.0 % [facility] % AUTOMATED IMMATURE GRAN 0.3 % 0.0 - 0.9 % [facility] Comment on above: Immature Granulocyte Count (IG) includes promyelocytes, myelocytes and metamyelocytes but does not include bands. Percent differential counts (%) should be interpreted in the context of the absolute cell counts (cells/UL). [facility] AUTOMATED IMMATURE GRAN 0.02 [facility] BASOPHIL 0.07 [facility] EOSINOPHIL 0.08 [facility] LYMPHOCYTE 1.74 [facility] MONOCYTE 0.61 [facility] NEUTROPHIL 4.54 [facility] Comment on above: Percent differential counts (%) should be interpreted in the context of the absolute cell counts (cells/uL). 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 ,D25.9 Leiomyoma of uterus, unspecified COMPARISON: None. ACCESSION NUMBER(S): [id number] ORDERING CLINICIAN: MELANI ZAMAN TECHNIQUE: Multiplanar MRI [...] Nicola Multani 06/03/2024 2:50 PM Dictation workstation: [employer] [facility] MR Pelvis WO and W contrast Aria 06-03-2024 1. Leiomyomatous uterus with leiomyomas ranging from subserosal to intracavitary. 2. PCOS ovary morphology. 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 ,D25.9 Leiomyoma of uterus, unspecified COMPARISON: None. 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 ,D25.9 Leiomyoma of uterus, unspecified COMPARISON: None. ACCESSION NUMBER(S): [id number] ORDERING CLINICIAN: MELANI ZAMAN TECHNIQUE: Multiplanar MRI [...] Nicola Multani 06/03/2024 2:50 PM Dictation workstation: [id number] [facility] Work Phone: Radiology Study observation (narrative) [facility] Work Phone: MR Pelvis WO and W contrast IVOrdered By: Nicola Multani on 06-03-2024 [facility] Work Phone: Blood type and Indirect anti body screen panel (Bld)on 05-18-2024 ABO group Nom (Bld) O Normal [facility] Comment on above: Performed By: #### 3 4532-2 #### ROBERT NOEL ([id number]) [facility] BLOOD BANK ([facility]) [address] [place] [address] [place] Blood group antibody screen Ql Negative [facility] Comment on above: Performed By: #### 3 4532-2 #### ROBERT NOEL ([id number]) [facility] [address] [place], [place] [address] US D Ag Ql (Bld) Positive [facility] Comment on above: Performed By: #### 3 4532-2 #### ROBERT NOEL ([id number]) [facility] BLOOD BANK ([facility]) [address] [place] [address] US CBC panel Auto (Bld)on 05-18 Erythrocyte distribution width (RBC) [Ratio] 12.8 % Normal 11.5-14.5 [facility] Comment on above: Performed By: #### 5 8410-2 #### ENRIQUE Martinez ([id number]) [facility] ([facility]) [address] [place] [address] Hematocrit (Bld) [Volume fraction] 37.5 % Normal 36.0-46.0 [facility] Comment on above: Performed By: #### 5 8410-2 #### ENRIQUE Martinez ([id number]) [facility] ([facility]) [address] [place] [address] Hemoglobin (Bld) [Mass/Vol] 12.1 g/dL Normal 12.0-16.0 [facility] Comment on above: Performed By: #### 5 8410-2 #### ENRIQUE Martinez ([id number]) [facility] ([facility]) [address] [place] [address] MCH (RBC) [Entitic mass] 29.0 pg Normal 26.0-34.0 [facility] Comment on above: Performed By: #### 5 8410-2 #### ENRIQUE Martinez ([id number]) [facility] ([facility]) [address] [place] [address] MCHC (RBC) [Mass/Vol] 32.3 g/dL Normal 32.0-36.0 [facility] Comment on above: Performed By: #### 5 8410-2 #### ENRIQUE Martinez ([id number]) [facility] ([facility]) [address] [place] [address] MCV (RBC) [Entitic vol] 90 fL Normal 80-100 [facility] Comment on above: Performed By: #### 5 8410-2 #### ENRIQUE Martinez ([id number]) [facility] ([facility]) [address] [place] [address] Nucleated RBC/100 WBC (Bld) [Ratio] 0.0 /100 WBCs Normal 0.0-0.0 [facility] Comment on above: Performed By: #### 5 8410-2 #### ENRIQUE Martinez ([id number]) [facility] ([facility]) [address] [place] [address] Platelets (Bld) [#/Vol] 275 x10*3/uL Normal 150-450 [facility] Comment on above: Performed By: #### 5 8410-2 #### ENRIQUE Martinez ([id number]) [facility] ([facility]) [address] [place] [address] RBC (Bld) [#/Vol] 4.17 x10*6/uL Normal 4.00-5.20 [facility] Comment on above: Performed By: #### 5 8410-2 #### ENRIQUE Martinez ([id number]) [facility] ([facility]) [address] [place] [address] WBC (Bld) [#/Vol] 10.9 x10*3/uL Normal 4.4-11.3 [facility] Comment on above: Performed By: #### 5 8410-2 #### ENRIQUE Martinez ([id number]) [facility] ([facility]) [address] [place] [address] HbA1c (Bld) [Mass fraction]o n 05-18-2024 Average glucose Estimated from glycated hemoglobin (Bld) [Mass/Vol] 105 mg/dL Normal Not Established [facility] Comment on above: Order Comment: Diagn osis of Diabetes-Adults Non-Diabetic: < or = 5.6% Increased risk for developing diabetes: 5.7-6.4% Diagnostic of diabetes: > or = 6.5% Performed By: #### 4 548-4 #### ENRIQUE Martinez ([id number]) [facility] ([facility]) [address] [place], [place] [address] Hemoglobin A1c/Hemoglobin.to farideh 05-18-2024 HbA1c (Bld) [Mass fraction] 5.3 % Normal See comment [facility] Comment on above: Order Comment: Diagn osis of Diabetes-Adults Non-Diabetic: < or = 5.6% Increased risk for developing diabetes: 5.7-6.4% Diagnostic of diabetes: > or = 6.5% Performed By: #### 4 548-4 #### ENRIQUE Martinez ([id number]) [facility] ([facility]) [address] [place], [place] [phone] Mullerian inhibiting substan ceon 05-18-2024 Mullerian inhibiting substance [Mass/Vol] 12.400 ng/mL High 0.176-11.705 [facility] Comment on above: Result Comment: INTE [...] developed and its performance characteristics determined by [employer]. It has not been cleared or approved by the [place] Food and Drug Administration. This test was performed in a CLIA certified laboratory and is intended for clinical purposes. Performed By: [facility] [employer] [address] [place], [place] [id number] Edge Polisher: Edward Cruz MD, PhD CLIA Number: [id number] Performed By: #### 3 8476-8 #### [facility] ([facility]) ([id number]) [address] [place], [place] [id number] ALL CBC WITH AUTO DIFFon BASOPHILS ABSOLUTE AUTO 0.1 [facility] Basophils/100 WBC (Bld) 1.3 % 0.2 - 2.0 % [facility] Eosinophils/100 WBC (Bld) 2.5 % 0.9 - 7.0 % [facility] Erythrocyte distribution width (RBC) [Ratio] 12.7 % 11.0 - 15.0 % [facility] Hematocrit (Bld) [Volume fraction] 35.8 % Low 36.0 - 48.0 % [facility] Hemoglobin (Bld) [Mass/Vol] 11.5 g/dL Low 12.0 - 16.0 g/dL [facility] IMMATURE GRANULOCYTES ABS AUTO 0.01 [facility] Immature granulocytes/100 WBC (Bld) 0.1 % 0.0 - 0.5 % [facility] Interpretation and review of laboratory results Abnormal [facility] LYMPHOCYTES ABSOLUTE AUTO 2.4 [facility] Lymphocytes/100 WBC (Bld) 29.8 % 20.5 - 60.0 % [facility] MCH (RBC) [Entitic mass] 29.0 pg 26. 7 - 34.0 pg [facility] MCHC (RBC) [Mass/Vol] 32.1 g/dL 29.9 - 35.2 g/dL [facility] MCV (RBC) [Entitic vol] 90.4 fL 81.0 - 99.0 fL [facility] MONOCYTES ABSOLUTE AUTO 0.7 [facility] Monocytes/100 WBC (Bld) 8.3 % 1.7 - 12.0 % [facility] NEUTROPHILS ABSOLUTE AUTO 4.6 [facility] Neutrophils/100 WBC (Bld) 58.0 % 43.0 - 75.0 % [facility] Platelet mean volume (Bld) [Entitic vol] 11.4 fL 9.5 - 13.5 fL [facility] EO # 0.2 [facility] PLT 305 [facility] RBC 3.96 Low [facility] WBC 7.9 [facility] Silas 01-24-2024 L Specimen: [id number] Received: 01/27/24 Status: AGNES Moreno Num: [id number] Spec Type: Surgical Subm Dr: Abel Alvarez Tissues: A Endometrium - Curettings (EMC) Procedures: HE/2, Gross/Micro L4 Age/ Patient Sex Location Account Attending Physician Barb Estrada 33/F [place] [id number] Abel Alvarez SPEC NUM: [id number] RECD: 01/27/24 STATUS: AGNES MORENO NUM: [id number] LASHELL: 01/24/[address]: Abel Alvarez ENTERED: 01/27/24 [facility] DR: Laurie,Lab SPEC TYPE: Surgical [...] date of and endometrial curettings are multiple truijllo-brown tissue fragments admixed with clotted blood on a Telfa pad measuring in aggregate 2.6 x 2.1 x 0.3 cm, entirely submitted in A1. Microscopic Description Microscopic examinations are performed supporting the above interpretation -- Specimen: [id number] Received: 01/27/24 Status: AGNES Moreno Num: [id number] Spec Type: Surgical Subm Dr: Abel Alvarez Tissues: A Endometrium - Curettings (EMC) Procedures: CARROLLFelicia Johnson/Amanda L4 -- Patient: Barb Estrada [id number] (Continued) -- Specimen: [id number] Received: 01/27/24 (Continued) Signed (signatu re on file) Ani Sarah MD 01/28/24 1607 -- Specimen: [id number] Received: 01/27/24 Status: AGNES Moreno Num: [id number] Spec Type: Surgical Subm Dr: Abel Alvarez Tissues: A Endometrium - Curettings (EMC) Procedures: CARROLLFelicia Johnson/Amanda L4 -- Patient: Barb Estrada [id number] (Continued) -- Specimen: [id number] Received: 01/27/24 (Continued) CPT Codes 91462 -- -- Specimen: [id number] Received: 01/27/24 Status: AGNES Moreno Num: [id number] Spec Type: Surgical Subm Dr: Abel Alvarez Tissues: A Endometrium - Curettings (EMC) Procedures: HE/2, Gross/Micro L4 -- Patient: Barb Estrada [id number] (Continued) -- Signed (signatu re on file) Ani Sarah MD 01/28/24 1607 Normal [facility] Physician [facility] Silas 11-12-2023 L Specimen: [id number] Received: 11/13/23 Status: AGNES Moreno Num: [id number] Spec Type: Surgical Subm Dr: Abel Alvarez Tissues: A Endometrium - Biopsy (EMB) Procedures: HE/2, Gross/Micro L4 Age/ Patient Sex Location Account Attending Physician PevelyBarb Juan 33/F [place] [id number] Abel Alvarez SPEC NUM: [id number] RECD: 11/13/23 STATUS: AGNES CONROYSonu NUM: [id number] LASHELL: 11/12/23- SUBM DR: Abel Alvarez ENTERED: 11/13/23 [facility] DR: Laurie,Lab SPEC TYPE: Surgical [...] in A1. Clinical history: Menorrhagia CPT Codes 03816 -- -- Specimen: [id number] Received: 11/13/23 Status: AGNES Moreno Num: [id number] Spec Type: Surgical Subm Dr: Abel Alvarez Tissues: A Endometrium - Biopsy (EMB) Procedures: HE/Elizabeth, Gross/Micro L4 -- Patient: Barb Estrada [id number] (Continued) -- Signed (signatu re on file) Jazmin Andrews MD 11/14/23 1547 Normal [facility] Quick Strepon 06-24-2023 S. pyogenes Org specific cx Ql (Throat) Negative [facility] Other Quick Strep [facility] Other COVID/FLU/RSV RT-PCRon 06-11 SARS-CoV-2 (COVID-19) RNA NATALIIA+probe Ql (Unsp spec) Negative [facility] Other COVID/FLU/RSV RT-PCR Negative [facility] Other CHLAMYDIA/GONOCOCCUS NATALIIA (SW AB/URINE/PAPon 08-03-2022 Chlamydia trachomatis, NATALIIA Negative Normal Negative [facility] Comment on above: Performed By: #### C T/NGNA #### [facility] [address] [place] [address] Dr. Anahy Sarah Neisseria gonorrhoeae, NATALIIA Negative Normal Negative [facility] Comment on above: Performed By: #### C T/NGNA #### [facility] [address] [place] [address] Dr. Anahy Sarah VAGINITIS/VAGINOSIS DNA PROB Omar 08-02-2022 Radha species Positive Abnormal Negative [facility] Comment on above: Performed By: #### V AGINT #### [facility] [address] [place] [address] Dr. Anahy Sarah Gardnerella vaginalis Negative Normal Negative [facility] Comment on above: Performed By: #### V AGINT #### [facility] [address] [place] [address] Dr. Anayh Sarah Trichomonas vaginalis Negative Normal Negative [facility] Comment on above: Performed By: #### V AGINT #### [facility] [address] [place] [address] Dr. Anahy Sarah CBC AUTO DIFFon 04-12-2022 BASO # 0.1 103/ul Normal 0.0-0.1 [facility] Comment on above: Performed By: #### C BC #### [facility] [address] [place] [address] Dr. Anahy Sarah Basophils/100 WBC (Bld) 0.9 % Normal 0.2-2.0 [facility] Comment on above: Performed By: #### C BC #### [facility] [address] [place] [address] Dr. Anahy Sarah EO # 0.1 103/ul Normal 0.0-0.7 [facility] Comment on above: Performed By: #### C BC #### [facility] [address] [place] [address] Dr. Anahy Sarah Eosinophils/100 WBC (Bld) 1.3 % Normal 0.9-7.0 [facility] Comment on above: Performed By: #### C BC #### [facility] [address] [place] [address] Dr. Anahy Sarah Erythrocyte distribution width (RBC) [Ratio] 12.6 % Normal 11.0-15.0 [facility] Comment on above: Performed By: #### C BC #### [facility] [address] [place] [address] Dr. Anahy Sarah Hematocrit (Bld) [Volume fraction] 35.5 % Critically low 36.0-48.0 [facility] Comment on above: Performed By: #### C BC #### [facility] [address] [place] [address] Dr. Anahy Sarah Hemoglobin (Bld) [Mass/Vol] 11.5 g/dL Critically low 12.0-16.0 [facility] Comment on above: Performed By: #### C BC #### [facility] [address] [place] [address] Dr. Anahy Sarah IG # 0.02 10e3/ul Normal 0.00-0.03 [facility] Comment on above: Performed By: #### C BC #### [facility] [address] [place] [address] Dr. Anahy Sarah IG % 0.2 % Normal 0.0-0.5 [facility] Comment on above: Performed By: #### C BC #### [facility] [address] [place] [address] Dr. Anahy Sarah LYMPH # 2.5 103/ul Normal 1.2-3.8 [facility] Comment on above: Performed By: #### C BC #### [facility] [address] [place] [address] Dr. Anahy Sarah Lymphocytes/100 WBC (Bld) 26.3 % Normal 20.5-60.0 [facility] Comment on above: Performed By: #### C BC #### [facility] [address] [place] [address] Dr. Anahy Sarah MANUAL DIFF REQ NO Normal [facility] Comment on above: Performed By: #### C BC #### [facility] [address] [place] [address] Dr. Anahy Sarah MCH (RBC) [Entitic mass] 28.8 pg Normal 26.7-34.0 [facility] Comment on above: Performed By: #### C BC #### [facility] [address] [place] [address] Dr. Anahy Sarah MCHC (RBC) [Mass/Vol] 32.4 g/dL Normal 29.9-35.2 [facility] Comment on above: Performed By: #### C BC #### [facility] [address] [place] [address] Dr. Anahy Sarah MCV (RBC) [Entitic vol] 88.8 fL Normal 81.0-99.0 [facility] Comment on above: Performed By: #### C BC #### [facility] [address] [place] [address] Dr. Anahy Sarah MONO # 0.7 103/ul Normal 0.3-0.8 [facility] Comment on above: Performed By: #### C BC #### [facility] [address] [place] [address] Dr. Anahy Sarah Monocytes/100 WBC (Bld) 7.1 % Normal 1.7-12.0 [facility] Comment on above: Performed By: #### C BC #### [facility] [address] [place] [address] Dr. Anahy Sarah NEUT # 6.0 103/ul Normal 1.4-6.5 [facility] Comment on above: Performed By: #### C BC #### [facility] [address] [place] [address] Dr. Anahy Sarah Neutrophils/100 WBC (Bld) 64.2 % Normal 43.0-75.0 [facility] Comment on above: Performed By: #### C BC #### [facility] [address] [address] [address] Anahy Sarah Platelet mean volume (Bld) [Entitic vol] 10.1 fL Normal 9.5-13.5 [facility] Comment on above: Performed By: #### C BC #### [facility] [address] [address] [address] Anahy Sarah PLT 287 103/ul Normal 150-450 [facility] Comment on above: Performed By: #### C BC #### [facility] [address] [place] [address] Dr. Anahy Sarah RBC 4.00 106/ul Critically low 4.20-5.40 [facility] Comment on above: Performed By: #### C BC #### [facility] [address] [address] [address] Anahy Sarah WBC 9.4 103/ul Normal 4.0-11.0 [facility] Comment on above: Performed By: #### C BC #### [facility] [address] [place] [address] Dr. Anahy Sarah GLYCOHEMOGLOBIN A1Con 2021 ADA RECOMMENDATION SEE BELOW Normal [facility] Comment on above: Result Comment: ADA RECOMMENDED LIMIT 4.0 - 6.0 ADA THERAPEUTIC TARGET < 7.0 ACTION SUGGESTED > 7.0 Performed By: #### A 1C #### [facility] [address] [place] [address] Dr. Anahy Sarah Glucose [Mass/Vol] 111 mg/dL Normal [facility] Comment on above: Performed By: #### A 1C #### [facility] [address] [place] [address] Dr. Anahy Sarah HbA1c (Bld) [Mass fraction] 5.5 % Normal 4.5-6.2 [facility] Comment on above: Performed By: #### A 1C #### [facility] [address] [place], [place] [id number] Dr. Anahy Sarah LIPID PROFILEon 04-12-2022 CHOL-HDL RATIO NORM SEE BELOW Normal [facility] Comment on above: Result Comment: 3.3 - 4.4 LOW RISK 4.4 - 7.1 AVERAGE RISK 7.1 - 11.0 MODERATE RISK >11.0 HIGH RISK Performed By: #### C MP, LIPID #### [facility] [address] [address] [address] Anahy Sarah Cholesterol [Mass/Vol] 168 mg/dL Normal <=200 [facility] Comment on above: Performed By: #### C MP, LIPID #### [facility] [address] [address] [address] Anahy Sarah Cholesterol in HDL [Mass/Vol] 47 mg/dL Normal 40-60 [facility] Comment on above: Performed By: #### C MP, LIPID #### [facility] [address] [address] [address] Anahy Sarah Cholesterol in LDL [Mass/Vol] 81.8 mg/dL Normal [facility] Comment on above: Performed By: #### C MP, LIPID #### [facility] [address] [address] [address] Anahy Sarah Cholesterol.total/Choles terol in HDL [Mass ratio] 3.6 {ratio} Normal [facility] Comment on above: Performed By: #### C MP, LIPID #### [facility] [address] [address] [address] Anahy Sarah HDL NORMAL > or = 60 mg/dl - LOW CARDIOVASCULAR RISK <40 mg/dl - HIGH CARDIOVASCULAR RISK Normal [facility] Comment on above: Performed By: #### C MP, LIPID #### [facility] [address] [address] [address] Anahy Sarah LDL CALC NORMAL SEE BELOW Normal [facility] Comment on above: Result Comment: <100 mg/dl OPTIMAL 100 - 129 mg/dl NEAR OR ABOVE OPTIMAL 130 - 159 mg/dl BORDERLINE HIGH 160 - 189 mg/dl HIGH >190 mg/dl VERY HIGH Performed By: #### C MP, LIPID #### [facility] [address] [place] [address] Dr. Anahy Sarah Triglyceride [Mass/Vol] 196 mg/dL Critically high <=150 [facility] Comment on above: Performed By: #### C MP, LIPID #### [facility] [address] [place] [address] Dr. Anahy Sarah VLDL CALC 39.2 mg/dL Normal [facility] Comment on above: Performed By: #### C MP, LIPID #### [facility] [address] [place] [address] Dr. Anahy Sarah PROF 14(COMP METB)on 022 Albumin [Mass/Vol] 3.5 g/dL Normal 3.4-5.0 [facility] Comment on above: Performed By: #### C MP, LIPID #### [facility] [address] [place] [address] Dr. Anahy Sarha Albumin/Globulin [Mass ratio] 0.9 {ratio} Normal [facility] Comment on above: Performed By: #### C MP, LIPID #### [facility] [address] [place] [address] Dr. Anahy Sarah ALP [Catalytic activity/Vol] 54 U/L Normal 46-116 [facility] Comment on above: Performed By: #### C MP, LIPID #### [facility] [address] [place] [address] Dr. Anahy Sarah ALT [Catalytic activity/Vol] 21 U/L Normal 14-59 [facility] Comment on above: Performed By: #### C MP, LIPID #### [facility] [address] [place] [address] Dr. Anahy Sarah Anion gap [Moles/Vol] 13.3 mmol/L Normal [facility] Comment on above: Performed By: #### C MP, LIPID #### [facility] [address] [place] [address] Dr. Anahy Sarah AST [Catalytic activity/Vol] 14 U/L Critically low 15-37 [facility] Comment on above: Performed By: #### C MP, LIPID #### [facility] [address] [place] [address] Dr. Anahy Sarah Bilirubin [Mass/Vol] 0.4 mg/dL Normal 0.2-1.0 [facility] Comment on above: Performed By: #### C MP, LIPID #### [facility] [address] [place] [address] Dr. Anahy Sarah Calcium [Mass/Vol] 8.5 mg/dL Normal 8.5-10.1 [facility] Comment on above: Performed By: #### C MP, LIPID #### [facility] [address] [place] [address] Dr. Anahy Sarah Chloride [Moles/Vol] 105 mmol/L Normal 98-107 [facility] Comment on above: Performed By: #### C MP, LIPID #### [facility] [address] [place] [address] Dr. Anahy Sarah CO2 [Moles/Vol] 23.4 mmol/L Normal 21.0-32.0 [facility] Comment on above: Performed By: #### C MP, LIPID #### [facility] [address] [place] [address] Dr. Anahy Sarah Creatinine [Mass/Vol] 0.74 mg/dL Normal 0.55-1.02 [facility] Comment on above: Performed By: #### C MP, LIPID #### [facility] [address] [place] [address] Dr. Anahy Sarah EGFR-AF COMORAN >60 Normal >=60 [facility] Comment on above: Performed By: #### C MP, LIPID #### [facility] [address] [place] [address] Dr. Anahy Sarah EGFR-NON AF COMORAN >60 Normal >=60 [facility] Comment on above: Performed By: #### C MP, LIPID #### [facility] [address] [place] [address] Dr. Anahy Sarah Globulin (S) [Mass/Vol] 3.7 g/dL Normal [facility] Comment on above: Performed By: #### C MP, LIPID #### [facility] [address] [place] [address] Dr. Anahy Sarah Glucose [Mass/Vol] 96 mg/dL Normal 74-106 [facility] Comment on above: Performed By: #### C MP, LIPID #### [facility] [address] [address] [address] Anahy Sarah Potassium [Moles/Vol] 3.7 mmol/L Normal 3.5-5.1 [facility] Comment on above: Performed By: #### C MP, LIPID #### [facility] [address] [place] [address] Dr. Anahy Sarah Protein [Mass/Vol] 7.2 g/dL Normal 6.4-8.2 [facility] Comment on above: Performed By: #### C MP, LIPID #### [facility] [address] [place] [address] Dr. Anahy Sarah Sodium [Moles/Vol] 138 mmol/L Normal 136-145 [facility] Comment on above: Performed By: #### C MP, LIPID #### [facility] [address] [place] [address] Dr. Anahy Sarah Urea nitrogen [Mass/Vol] 6.0 mg/dL Critically low 7.0-18. 0 [facility] Comment on above: Performed By: #### C MP, LIPID #### [facility] [address] [place] [address] Dr. Anahy Sarah Urea nitrogen/Creatinine [Mass ratio] 8.1 mg/mg Normal [facility] Comment on above: Performed By: #### C MP, LIPID #### [facility] [address] [place] [address] Dr. Anahy Sarah PAP ACOG PANEL 2: 30 to 65on 03-09-2022 . . Normal [facility] Comment on above: Result Comment: Perf ormed at: WB Performed By: #### [id number] #### [facility] [address] [place] [address] Dr. Anahy Sarah Age Gdln ACOG Testing 30-65 Normal [facility] Comment on above: Performed By: #### [id number] #### [facility] [address] [place] [address] Dr. Anahy Sarah DIAGNOSIS: Comment Normal [facility] Comment on above: Result Comment: NEGA TIVE FOR INTRAEPITHELIAL LESION OR MALIGNANCY. Performed at: WB Performed By: #### [id number] #### [facility] [address] [place] [address] Dr. Anahy Sarah HPV Aptima Negative Normal Negative [facility] Comment on above: Result Comment: This nucleic acid amplification test detects fourteen high-risk HPV types (16,18,31,33,35,39,45,51,52,56,58,59,66,68) without differentiation. Performed at: =G Performed By: #### [id number] #### [facility] [address] [place] [address] Dr. Anahy Sarah Methodology: Comment Normal [facility] Comment on above: Result Comment: This liquid based ThinPrep(R) pap test was screened with the use of an image guided system. Performed at: WB Performed By: #### [id number] #### [facility] [address] [place] [address] Dr. Anahy Sarah Note: Comment Normal [facility] Comment on above: Result Comment: The Pap smear is a screening test designed to aid in the detection of premalignant and malignant conditions of the uterine cervix. It is not a diagnostic procedure and should not be used as the sole means of detecting cervical cancer. Both false-positive and false-negative reports do occur. . Performed at: WB Performed By: #### [id number] #### [facility] [address] [place] [address] Dr. Anahy Sarah Performed by: Comment Normal [facility] Comment on above: Result Comment: Nayla Garcia, Tuber Machine Operator Helper (ASCP) Performed at: WB Performed By: #### [id number] #### [facility] [address] [place] [address] Dr. Anahy Sarah Specimen adequacy: Comment Normal [facility] Comment on above: Result Comment: Sati sfactory for evaluation. Endocervical and/or squamous metaplastic cells (endocervical component) are present. Performed at: WB Performed By: #### [id number] #### [facility] [address] [place] [address] Dr. Anahy BALDWIN Quick Testingon 2021 Result Negative [facility] Other Quick Fluon 10-12-2021 FLUAV Ab CF (S) [Titer] Negative N [employer] Other FLUBV Ab CF (S) [Titer] Negative N [employer] Other S. pyogenes Ag Ql (Throat)on 10-12-2021 S. pyogenes Org specific cx Ql (Throat) Positive [facility] Other Vital Signs Date Time Vital Sign Value Performing Clinician Facility 03-10-2025 09:46-0400 Body mass index (BMI) [Ratio] 40 kg/m2 Lucinda Rodriguez CENTRIFUGAL SEPARATOR Work Phone: [facility] 03-10-2025 09:46-0400 Body temperature 97.81 [degF] Lucinda Rodriguez CENTRIFUGAL SEPARATOR Work Phone: [facility] 03-10-2025 09:46-0400 Body weight 109.05 kg Lucinda Rodriguez CENTRIFUGAL SEPARATOR Work Phone: [facility] 03-10-2025 09:46-0400 Diastolic blood pressure 100 mm[Hg] Lucinda Rodriguez CENTRIFUGAL SEPARATOR Work Phone: [facility] 03-10-2025 09:46-0400 Heart rate 90 /min Lucinda Rodriguez CENTRIFUGAL SEPARATOR Work Phone: [facility] 03-10-2025 09:46-0400 Respiratory rate 18 /min Lucinda Rodriguez CENTRIFUGAL SEPARATOR Work Phone: [facility] 03-10-2025 09:46-0400 SaO2% (BldA) [Mass fraction] 97 % Lucinda Rodriguez CENTRIFUGAL SEPARATOR Work Phone: [facility] 03-10-2025 09:46-0400 Systolic blood pressure 148 mm[Hg] Lucinda Rodriguez CENTRIFUGAL SEPARATOR Work Phone: [facility] 10-13-2024 15:19-0400 Body mass index (BMI) [Ratio] 40.77 kg/m2 Abel Kim DO Work Phone: [facility] 10-13-2024 15:19-0400 Body weight 111.13 kg Abel Kim DO Work Phone: [facility] 10-13-2024 15:19-0400 Diastolic blood pressure 100 mm[Hg] Abel Kim DO Work Phone: [facility] 10-13-2024 15:19-0400 Systolic blood pressure 140 mm[Hg] Abel Kim DO Work Phone: [facility] 09-23-2024 14:31-0500 Body mass index (BMI) [Ratio] 41.1 kg/m2 Abel Kim DO Work Phone: [facility] 09-23-2024 14:31-0500 Body weight 112.04 kg Abel Kim DO Work Phone: [facility] 09-23-2024 14:31-0500 Diastolic blood pressure 78 mm[Hg] Abel Kim DO Work Phone: [facility] 09-23-2024 14:31-0500 Systolic blood pressure 128 mm[Hg] Abel Kim DO Work Phone: [facility] 09-14-2024 10:26-0500 Body height 165.1 cm Darlene Julien ELECTRICAL ENGINEERING TEACHER-[employer] SERVICE TEAM MEMBER Work Phone: [facility] 09-14-2024 10:26-0500 Body mass index (BMI) [Ratio] 39.27 kg/m2 Darlene Julien ELECTRICAL ENGINEERING TEACHER-SEA[employer]OD SERVICE TEAM MEMBER Work Phone: [facility] 09-14-2024 10:26-0500 Body weight 107.05 kg Darlene Julien ELECTRICAL ENGINEERING TEACHER-SEA[employer]OD SERVICE TEAM MEMBER Work Phone: [facility] 09-10-2024 09:47-0500 Body mass index (BMI) [Ratio] 40.4 kg/m2 Lucinda Rodriguez CENTRIFUGAL SEPARATOR Work Phone: [facility] 09-10-2024 09:47-0500 Body temperature 98.29 [degF] Lucinda Robersonz CENTRIFUGAL SEPARATOR Work Phone: [facility] 09-10-2024 09:47-0500 Body weight 110.13 kg Lucinda Robersonz CENTRIFUGAL SEPARATOR Work Phone: [facility] 09-10-2024 09:47-0500 Diastolic blood pressure 98 mm[Hg] Lucinda Robersonz CENTRIFUGAL SEPARATOR Work Phone: [facility] 09-10-2024 09:47-0500 Heart rate 98 /min Lucinda Robersonz CENTRIFUGAL SEPARATOR Work Phone: [facility] 09-10-2024 09:47-0500 Respiratory rate 18 /min Lucinda Robersonz CENTRIFUGAL SEPARATOR Work Phone: [facility] 09-10-2024 09:47-0500 SaO2% (BldA) [Mass fraction] 98 % Lucindadestiney Robersonz CENTRIFUGAL SEPARATOR Work Phone: [facility] 09-10-2024 09:47-0500 Systolic blood pressure 128 mm[Hg] Lucinda Robersonz CENTRIFUGAL SEPARATOR Work Phone: [facility] 08-21-2024 15:00-0500 SaO2% (BldA) [Mass fraction] 96 % Melani Zaman MD Work Phone: [facility] 08-21-2024 14:45-0500 Diastolic blood pressure 88 mm[Hg] Melani Zaman MD Work Phone: [facility] 08-21-2024 14:45-0500 Heart rate 90 /min Melani Zaman MD Work Phone: [facility] 08-21-2024 14:45-0500 Respiratory rate 19 /min Melani Zaman MD Work Phone: [facility] 01-31-2025 14:45-0500 Systolic blood pressure 142 mm[Hg] Melani Zaman MD Work Phone: [facility] 08-21-2024 14:19-0500 Body temperature 97 [degF] Melani Zaman MD Work Phone: [facility] 08-21-2024 12:22-0500 Body height 165.1 cm Melani Zaman MD Work Phone: [facility] 08-21-2024 12:22-0500 Body mass index (BMI) [Ratio] 39.25 kg/m2 Melani Zaman MD Work Phone: [facility] 08-21-2024 12:22-0500 Body weight 107 kg Melani Zaman MD Work Phone: [facility] 07-07-2024 11:31-0500 Body height 165.1 cm Darlene Julien ELECTRICAL ENGINEERING TEACHER-[employer] SERVICE TEAM MEMBER Work Phone: [facility] 07-07-2024 11:31-0500 Body mass index (BMI) [Ratio] 39.27 kg/m2 Darlene Armond ELECTRICAL ENGINEERING TEACHER-SEA[employer] SERVICE TEAM MEMBER Work Phone: [facility] 07-07-2024 11:31-0500 Body weight 107.05 kg Darlene Olmosle ELECTRICAL ENGINEERING TEACHER-SEA[employer] SERVICE TEAM MEMBER Work Phone: [facility] 06-26-2024 14:26-0500 Body temperature 97.2 [degF] Melani Zaman MD Work Phone: [facility] 06-26-2024 14:26-0500 Diastolic blood pressure 72 mm[Hg] Melani Zaman MD Work Phone: [facility] 06-26-2024 14:26-0500 Heart rate 97 /min Melani Zaman MD Work Phone: [facility] 06-26-2024 14:26-0500 Respiratory rate 18 /min Melani Zaman MD Work Phone: [facility] 06-26-2024 14:26-0500 SaO2% (BldA) [Mass fraction] 95 % Melani Zaman MD Work Phone: [facility] 06-26-2024 14:26-0500 Systolic blood pressure 124 mm[Hg] Melani Zaman MD Work Phone: [facility] 06-26-2024 06:27-0500 Body height 165.1 cm Melani Zaman MD Work Phone: [facility] 06-26-2024 06:27-0500 Body mass index (BMI) [Ratio] 39.47 kg/m2 Melani Zaman MD Work Phone: [facility] 06-26-2024 06:27-0500 Body weight 107.6 kg Melani Zaman MD Work Phone: [facility] 05-18-2024 08:55-0400 Body height 165.1 cm Melani Zaman MD Work Phone: [facility] 05-18-2024 08:55-0400 Body mass index (BMI) [Ratio] 40.6 kg/m2 Melani Zaman MD Work Phone: [facility] 05-18-2024 08:55-0400 Body weight 110.68 kg Melani Zaman MD Work Phone: [facility] 05-18-2024 08:55-0400 Diastolic blood pressure 89 mm[Hg] Melani Zaman MD Work Phone: [facility] 05-18-2024 08:55-0400 Heart rate 85 /min Melani Zaman MD Work Phone: [facility] 05-18-2024 08:55-0400 Systolic blood pressure 146 mm[Hg] Melani Zaman MD Work Phone: [facility] 03-12-2024 09:33-0400 Body height 165.1 cm Lucinda Rodriguez NP Work Phone: [facility] 03-12-2024 09:33-0400 Body mass index (BMI) [Ratio] 39.8 kg/m2 Lucinda Rodriguez CENTRIFUGAL SEPARATOR Work Phone: [facility] 03-12-2024 09:33-0400 Body temperature 98.49 [degF] Lucinda Robersonz CENTRIFUGAL SEPARATOR Work Phone: [facility] 03-12-2024 09:33-0400 Body weight 108.5 kg Lucinda Robersonz CENTRIFUGAL SEPARATOR Work Phone: [facility] 03-12-2024 09:33-0400 Diastolic blood pressure 88 mm[Hg] Lucinda Robersonz CENTRIFUGAL SEPARATOR Work Phone: [facility] 03-12-2024 09:33-0400 Heart rate 83 /min Lucinda Robersonz CENTRIFUGAL SEPARATOR Work Phone: [facility] 03-12-2024 09:33-0400 Respiratory rate 18 /min Lucinda Rodriguez CENTRIFUGAL SEPARATOR Work Phone: [facility] 03-12-2024 09:33-0400 SaO2% (BldA) [Mass fraction] 99 % Lucinda Rodriguez CENTRIFUGAL SEPARATOR Work Phone: [facility] 03-12-2024 09:33-0400 Systolic blood pressure 118 mm[Hg] Lucinda Rodriguez CENTRIFUGAL SEPARATOR Work Phone: [facility] 06-24-2023 11:15-0500 Body height 167.64 cm Oly Reed Other [facility] Other 06-24-2023 11:15-0500 Body mass index (BMI) [Ratio] 38.73 kg/m2 Oly Reed Other [facility] Other 06-24-2023 11:15-0500 Body temperature 99.8 [degF] Oly Reed Other [facility] Other 06-24-2023 11:15-0500 Body weight 108.86 kg Oly Reed Other [facility] Other 06-24-2023 11:15-0500 Respiratory rate 19 /min Oly Reed Other [facility] Other 06-24-2023 11:15-0500 SaO2% (BldA) [Mass fraction] 98 % Oly Reed Other [facility] Other 06-11-2023 12:20-0500 Body height 167.64 cm Alice Tamez Other [facility] Other 06-11-2023 12:20-0500 Body mass index (BMI) [Ratio] 39.25 kg/m2 Alice Tamez Other [facility] Other 06-11-2023 12:20-0500 Body temperature 98.4 [degF] Alice Tamez Other [facility] Other 06-11-2023 12:20-0500 Body weight 110.32 kg Alice Tamez Other [facility] Other 06-11-2023 12:20-0500 Diastolic blood pressure 93 mm[Hg] Alice Tamez Other [facility] Other 06-11-2023 12:20-0500 Respiratory rate 18 /min Alice Tamez Other [facility] Other 06-11-2023 12:20-0500 SaO2% (BldA) [Mass fraction] 97 % Alice Tamez Other [facility] Other 06-11-2023 12:20-0500 Systolic blood pressure 144 mm[Hg] Alice Tamez Other [facility] Other 10-12-2021 10:20-0400 Body height 167.64 cm Alice Tamez Other [facility] Other 10-12-2021 10:20-0400 Body mass index (BMI) [Ratio] 38.73 kg/m2 Alice Tamez Other [facility] Other 10-12-2021 10:20-0400 Body temperature 98.3 [degF] Alice Tamez Other [facility] Other 10-12-2021 10:20-0400 Body weight 108.86 kg Alice Tamez Other [facility] Other 10-12-2021 10:20-0400 Respiratory rate 18 /min Alice Tamez Other [facility] Other 10-12-2021 10:20-0400 SaO2% (BldA) [Mass fraction] 97 % Alice Tamez Other [facility] Other Encounters Encounter Date Encounter Type Care Provider Facility Start: 03-10-2025 End: 03-10-2025 Bamboo flowsheet Lucinda Rodriguez CENTRIFUGAL SEPARATOR Work Phone: [facility] Start: 03-10-2025 End: 03-10-2025 Bamboo flowsheet Lucinda Rodriguez CENTRIFUGAL SEPARATOR Work Phone: [facility] Start: 03-10-2025 End: 03-10-2025 Office outpatient visit 15 minutes Lucinda Rodriguez CENTRIFUGAL SEPARATOR Work Phone: [facility] Comment on above: Iron deficiency anem ia, unspecified iron deficiency anemia type (Primary Dx); Morbid (severe) obesity due to excess calories ([facility]) Start: 03-10-2025 End: 03-10-2025 ambulatory LUCINDA ADRIANAHHOLZ Not Available Start: 03-08-2025 End: 03-08-2025 Clinisync Result Encounter Lucinda Daz CENTRIFUGAL SEPARATOR Work Phone: [facility] Unsolicited Start: 03-08-2025 End: 03-08-2025 Clinisync Result Encounter Lucinda Aicbishopholz CENTRIFUGAL SEPARATOR Work Phone: [facility] Unsolicited Start: 02-09-2025 End: 02-09-2025 Refill Lucinda Aichholz CENTRIFUGAL SEPARATOR Work Phone: [facility] Comment on above: Rash (Primary Dx) Start: 02-05-2025 End: 02-07-2025 Refill Lucinda Aichholz CENTRIFUGAL SEPARATOR Work Phone: [facility] Comment on above: Mild intermittent as thma, unspecified whether complicated ([facility]) Start: 02-01-2025 End: 02-01-2025 Refill Lucinda Aichholz CENTRIFUGAL SEPARATOR Work Phone: [facility] Comment on above: Poison carlos (Primary Dx) Start: 01-04-2025 End: 01-04-2025 Refill Lucinda Aichholz CENTRIFUGAL SEPARATOR Work Phone: [facility] Comment on above: Candidiasis of breas t (Primary Dx) Start: 11-16-2024 End: 11-16-2024 Orders Only Lucinda Aichholz CENTRIFUGAL SEPARATOR Work Phone: [facility] Comment on above: Iron deficiency anem ia, unspecified iron deficiency anemia type (Primary Dx); Anemia due to other cause, not classified Start: 11-10-2024 End: 11-10-2024 Clinisync Result Encounter Lucinda Aicbishopholz CENTRIFUGAL SEPARATOR Work Phone: [facility] Unsolicited Start: 11-10-2024 End: 11-10-2024 Clinisync Result Encounter Lucinda Jennifer CENTRIFUGAL SEPARATOR Work Phone: [facility] Unsolicited Start: 11-08-2024 End: 11-09-2024 Refill Lucinda Bernabeolegario CENTRIFUGAL SEPARATOR Work Phone: [facility] Comment on above: Mild intermittent as thma, unspecified whether complicated (CMS/HCC) Start: 10-13-2024 End: 10-13-2024 Patient encounter procedure Abel Kim DO Work Phone: [facility] Comment on above: ASCUS with positive high risk HPV cervical Start: 10-13-2024 End: 10-13-2024 ambulatory Abel [facility] Work Phone: Start: 10-13-2024 End: 10-13-2024 Departed Referred Abel Kim DO Work Phone: [facility] Start: 09-23-2024 End: 09-23-2024 Bamboo flowsheet Abel Kim DO Work Phone: [facility] Start: 09-23-2024 End: 09-29-2024 Bamboo flowsheet Abel Ikm DO Work Phone: [facility] Start: 09-23-2024 End: 09-29-2024 Clinisync Result Encounter Generic External Data Provider [facility] External Department Unsolicited Start: 09-23-2024 End: 09-23-2024 Patient encounter procedure Abel Kim DO Work Phone: [facility] Start: 09-23-2024 End: 09-23-2024 Periodic preventive med est patient 18-39 yrs Abel Kim DO Work Phone: [facility] Comment on above: Well woman exam with routine gynecological exam; Screen for STD (sexually transmitted disease) Start: 09-23-2024 End: 09-23-2024 ambulatory ABEL KIM Not Available Start: 09-21-2024 End: 09-21-2024 Telemedicine consultation with patient Melani Zaman MD Work Phone: [facility] Comment on above: PCOS (polycystic ova rajendra syndrome) (Primary Dx); Postop check Start: 09-21-2024 End: 09-21-2024 ambulatory [facility] Start: 09-14-2024 End: 09-14-2024 Telemedicine consultation with patient Darlene Julien ELECTRICAL ENGINEERING TEACHER-SEAFOOD SERVICE TEAM MEMBER [facility] Comment on above: Postop check (Primar y Dx) Start: 09-14-2024 End: 09-14-2024 ambulatory DARLENE JULIEN [facility] Start: 09-10-2024 End: 09-10-2024 Bamboo flowsheet Lucinda Rodriguez CENTRIFUGAL SEPARATOR Work Phone: [facility] Start: 09-10-2024 End: 09-10-2024 Bamboo flowsheet Lucinda Rodriguez CENTRIFUGAL SEPARATOR Work Phone: [facility] Start: 09-10-2024 End: 09-10-2024 Patient encounter status Lucinda Rodriguez CENTRIFUGAL SEPARATOR Work Phone: [facility] Start: 09-10-2024 End: 09-10-2024 Periodic preventive med est patient 18-39 yrs Lucinda Rodriguez CENTRIFUGAL SEPARATOR Work Phone: [facility] Comment on above: Encounter for [facility] ss examination in adult (Primary Dx); Morbid (severe) obesity due to excess calories (CMS/HCC); Body mass index (BMI) 39.0-39.9, adult; Mild intermittent asthma without complication (CMS/HCC); Insulin resistance; PCOS (polycystic ovarian syndrome); Iron deficiency anemia, unspecified iron deficiency anemia type; Elevated blood pressure reading Start: 09-10-2024 End: 09-10-2024 ambulatory LUCINDA RODRIGUEZ Not Available Start: 09-05-2024 End: 09-07-2024 Refill Lucinda Rodriguez CENTRIFUGAL SEPARATOR Work Phone: [facility] Comment on above: Iron deficiency anem ia, unspecified iron deficiency anemia type Start: 08-21-2024 End: 08-26-2024 Clinisync Result Encounter Generic External Data Provider [facility] External Department Unsolicited Start: 08-21-2024 End: 08-26-2024 Clinisync Result Encounter Generic External Data Provider [facility] External Department Unsolicited Start: 08-21-2024 End: 08-21-2024 Subsequent hospital visit by physician Melani Zaman MD Work Phone: [facility] Comment on above: Submucous uterine fi broid (Primary Dx); Post-operative state Start: 08-13-2024 End: 08-13-2024 Refill Lucinda Rodriguez NP Work Phone: [facility] Comment on above: Mild intermittent as thma, unspecified whether complicated (CMS/HCC) Start: 08-10-2024 End: 08-10-2024 ambulatory MELANI [facility] Start: 07-29-2024 ambulatory MELANI ZAMAN [facility] Start: 07-24-2024 End: 09-10-2024 Clinisync Result Encounter Generic External Data Provider [facility] External Department Unsolicited Start: 07-24-2024 End: 09-10-2024 Clinisync Result Encounter Generic External Data Provider [facility] External Department Unsolicited Start: 07-24-2024 End: 07-24-2024 Patient encounter procedure Darlene GOLDBERGSEAFOOD SERVICE TEAM MEMBER Work Phone: [facility] Comment on above: Intramural, submucou s, and subserous leiomyoma of uterus (Primary Dx); Encounter for preprocedural laboratory examination Start: 07-24-2024 End: 07-24-2024 Patient encounter status Darlene MCDUFFIE Work Phone: [facility] Start: 07-24-2024 End: 07-24-2024 ambulatory DARLENE JULIEN [facility] Start: 07-24-2024 End: 07-24-2024 Encounter for preprocedural laboratory examination DARLENE R [facility] Start: 07-07-2024 End: 07-07-2024 Telemedicine consultation with patient Darlene Julien ELECTRICAL ENGINEERING TEACHER-SEAFOOD SERVICE TEAM MEMBER Work Phone: [facility] Comment on above: Postop check (Primar y Dx) Start: 07-07-2024 End: 07-07-2024 ambulatory DARLENE JULIEN [facility] Start: 06-26-2024 End: 06-26-2024 Subsequent hospital visit by physician Melani Zaman MD Work Phone: [facility] Comment on above: Intramural, submucou s, and subserous leiomyoma of uterus (Primary Dx); Post-operative state Start: 06-25-2024 End: 06-25-2024 ambulatory LUCINDA CORA [facility] Start: 06-25-2024 End: 06-25-2024 Clinisync Result Encounter Generic External Data Provider [facility] External Department Unsolicited Start: 06-25-2024 End: 06-25-2024 Clinisync Result Encounter Generic External Data Provider [facility] External Department Unsolicited Start: 06-03-2024 End: 06-03-2024 Subsequent hospital visit by physician Kandy Huff Mri 1 [facility] Comment on above: Uterine leiomyoma, u nspecified location Start: 06-03-2024 End: 06-03-2024 ambulatory MELANI ZAMAN [facility] Start: 05-19-2024 ambulatory MELANI ZAMAN [facility] Start: 05-18-2024 End: 05-18-2024 ambulatory [facility] Start: 05-18-2024 End: 05-18-2024 Encounter for other preprocedural examination [facility]ANI [facility] Start: 05-18-2024 End: 05-18-2024 Patient encounter procedure Melani Zaman MD Work Phone: [facility] Comment on above: Uterine leiomyoma, u nspecified location (Primary Dx); PCOS (polycystic ovarian syndrome); Fertility testing; Screening for diabetes mellitus; Abnormal uterine bleeding Start: 05-18-2024 End: 05-18-20[facility] Start: 03-25-2024 End: 03-25-2024 Refill Lucinda Rodriguez CENTRIFUGAL SEPARATOR Work Phone: [facility] Comment on above: Iron deficiency anem ia, unspecified iron deficiency anemia type (Primary Dx) Start: 03-18-2024 End: 03-18-2024 Clinisync Result Encounter Lucinda Jennifer CENTRIFUGAL SEPARATOR Work Phone: [facility] External Department Unsolicited Start: 03-18-2024 End: 03-18-2024 Clinisync Result Encounter Lucinda Jennifer CENTRIFUGAL SEPARATOR Work Phone: [facility] External Department Unsolicited Start: 03-12-2024 End: 03-12-2024 Bamboo flowsheet Lucinda Rodriguez CENTRIFUGAL SEPARATOR Work Phone: [facility] Start: 03-12-2024 End: 03-12-2024 Bamboo flowsheet Lucinda Adrianabishopolegario CENTRIFUGAL SEPARATOR Work Phone: [facility] Start: 03-12-2024 End: 03-12-2024 Office outpatient visit 15 minutes Lucinda Rodriguez CENTRIFUGAL SEPARATOR Work Phone: [facility] Comment on above: Iron deficiency anem ia, unspecified iron deficiency anemia type (Primary Dx); Class 2 obesity due to excess calories without serious comorbidity with body mass index (BMI) of 39.0 to 39.9 in adult; Mild intermittent asthma, unspecified whether complicated ([facility]) Start: 03-12-2024 End: 03-12-2024 ambulatory LUCINDA RODRIGUEZ Not Available Start: 01-24-2024 End: 01-24-2024 ambulatory PHYSICIAN NO [facility] Work Phone: Start: 01-24-2024 End: 01-24-2024 Departed Referred PHYSICIAN NO [facility] Start: 11-12-2023 End: 11-12-2023 ambulatory PHYSICIAN NO [facility] Work Phone: Start: 11-12-2023 End: 11-12-2023 Departed Referred PHYSICIAN NO [facility] Path Spec [facility] Start: 08-22-2023 Patient encounter status Lucinda Rodriguez CENTRIFUGAL SEPARATOR Work Phone: [facility] Start: 06-24-2023 End: 06-24-2023 ambulatory Oly Reed Other [facility] Other Start: 06-24-2023 Office outpatient vi sit 15 minutes Olytrent Reed [facility] [place] Start: 06-11-2023 End: 06-11-2023 ambulatory Alice Tamez Other [facility] Other Start: 06-11-2023 Office outpatient vi sit 25 minutes Alice Tamez [facility] [place] Start: 08-01-2022 End: 08-01-[address] JANET LANDON Facility:[facility] Start: 04-17-2022 Encounter for genera l adult medical examination without abnormal findings DR JANET LANDON [facility] Start: 04-12-2022 End: 04-13-[address] JANET LANDON Facility:[facility] Start: 04-12-2022 End: 04-13-2022 Encounter for general adult medical examination without abnormal findings DR JANET LANDON Facility:[facility] Start: 03-05-2022 End: 03-05-[address] JANET LANDON Facility:[facility] Start: 10-12-2021 End: 10-12-2021 ambulatory Alice Tamez Other [facility] Other Start: 10-12-2021 Office outpatient vi sit 15 minutes Alice Tamez [facility] [place] Start: 10-05-2021 End: 10-06-[address] SHEILA LYONS Facility:[facility] Procedures Date Procedure Procedure Detail Performing Clinician Start: 03-08-2025 ALL CBC WITH AUTO DIFF Lucinda Rodriguez CENTRIFUGAL SEPARATOR Work Phone: Start: 11-10-2024 ALL CBC WITH AUTO DIFF Lucinda Aichkirstinz CENTRIFUGAL SEPARATOR Work Phone: Start: 10-13-[address] [facility] o DO Work Phone: Start: 10-13-2024 Urine test visual color [facility]prsn meths [facility] Work Phone: Start: 09-23-2024 IGP,APTIMA HPV,AGE GDLN [facility] Work Phone: Start: 09-23-2024 Microscopic observat ion [Identifier] in Cervix by Cyto stain [facility] DO Work Phone: Start: 08-21-2024 PULSE OXIMETRY, CONTINUOUS Bailey Gaviria MD Work Phone: Start: 08-21-2024 SURGICAL PATHOLOGY EXAM Generic External Data Provider Start: 08-21-2024 Urine test visual color cmprsn meths Melani Zaman MD Work Phone: Start: 07-24-2024 Urine test visual color cmprsn meths Deborah Price MD Work Phone: Start: 07-24-2024 WAGE AND HOUR INVESTIGATOR SONOHYSTEROGRAM Chloe Julien ELECTRICAL ENGINEERING TEACHER-SEAFOOD SERVICE TEAM MEMBER Work Phone: Start: 07-24-2024 US SONOHYSTEROGRAM Gene hussein External Data Provider Start: 06-26-2024 PULSE OXIMETRY, CONTINUOUS Parish Moreno MD Work Phone: Start: 06-26-2024 Urine test visual color cmprsn meths Melani Zaman MD Work Phone: Start: 06-25-2024 UH CBC AND DIFFERENTIAL Generic External Data Provider Start: 06-03-2024 Mri pelvis w/o & w/c ontrast material Melani Zaman MD Work Phone: Start: 03-18-2024 ALL CBC WITH AUTO DIFF Lucinda Aichholz CENTRIFUGAL SEPARATOR Work Phone: Start: 04-16-2023 Microscopic observat ion [Identifier] in Cervix by Cyto stain Lucinda Rodriguez CENTRIFUGAL SEPARATOR Work Phone: Plan of Treatment Date Care Activity Detail Author Start: 2041 Zoster Vaccines (1 o f 2) Zoster Vaccines (1 of 2) [facility] Start: 04-16-2028 Screening for malign ant neoplasm of cervix [facility] Start: 09-24-2027 Screening for malign ant neoplasm of cervix Pap Smear [facility] Start: 04-16-2026 Screening for malign ant neoplasm of cervix [facility] Start: 09-29-2025 End: 09-29-2025 Patient encounter procedure [facility] Start: 09-09-2025 End: 09-09-2025 Patient encounter procedure 09/09/2025 10:00 AM EST Office Visit [facility] [address] [place] [phone] Lucinda Rodriguez, HECTOR [address] [place] [id number] [facility] Start: 05-21-2025 Influenza vaccination Influenza Vacc ine (#1) [facility] Comment on above: Postponed from 03/22 (Patient Does Not Have Time) Start: 05-03-2025 End: 05-03-2025 Patient encounter procedure [facility] Start: 03-22-2025 Influenza vaccination Influenza Vacc ine (#1) [facility] Start: 03-10-2025 End: 03-10-2025 Patient encounter procedure [facility] Comment on above: Mild intermittent as thma without complication (HCC) (Primary Dx); Morbid (severe) obesity due to excess calories ([facility]-H[facility]); Iron deficiency anemia, unspecified iron deficiency anemia type Start: 11-16-2024 End: 11-16-2025 CBC W Auto Differential panel - Blood CBC and differential Lab Routine Iron deficiency anemia, unspecified iron deficiency anemia type Expected: 11/16/2024 (Approximate), Expires: 11/16/2025 [facility] Work Phone: Comment on above: Expected: 11/16/2024 (Approximate), Expires: 11/16/2025 Start: 11-16-2024 End: 11-16-2025 Cobalamin (Vitamin B12) [Mass/volume] in Serum or Plasma Vitamin B12 Lab Routine Anemia due to other cause, not classified Expected: 11/16/2024 (Approximate), Expires: 11/16/2025 [facility] Comment on above: Expected: 11/16/2024 (Approximate), Expires: 11/16/2025 Start: 11-16-2024 End: 11-16-2025 Ferritin [Mass/volume] in Serum or Plasma Ferritin Lab Routine Iron deficiency anemia, unspecified iron deficiency anemia type Expected: 11/16/2024 (Approximate), Expires: 11/16/2025 [facility] Comment on above: Expected: 11/16/2024 (Approximate), Expires: 11/16/2025 Start: 11-16-2024 End: 11-16-2025 Iron and Iron binding capacity panel - Serum or Plasma Iron level Lab Routine Iron deficiency anemia, unspecified iron deficiency anemia type Expected: 11/16/2024 (Approximate), Expires: 11/16/2025 [facility] Comment on above: Expected: 11/16/2024 (Approximate), Expires: 11/16/2025 Start: 10-13-2024 End: 10-13-2025 Colposcopy Colposcopy Procedures Routine ASCUS with positive high risk HPV cervical Expected: 10/13/2024 (Approximate), Expires: 10/13/2025 [facility] Work Phone: Comment on above: Expected: 10/13/2024 (Approximate), Expires: 10/13/2025 Start: 09-23-2024 End: 09-23-2024 Patient encounter procedure [facility] Comment on above: Arrived Start: 09-21-2024 End: 09-21-2024 Telemedicine consultation with patient 09/21/2024 8:30 AM EST Telemedicine [facility] [address] [facility] [address] [place] [phone] Melani Zaman MD [address], [facility] [address] [place] [address] [facility] Start: 09-14-2024 End: 09-14-2024 Telemedicine consultation with patient 09/14/2024 11:45 AM EST Telemedicine [facility]awilder[facility] [address] [place] [address] Darlene Julien, ELECTRICAL ENGINEERING TEACHER-SEAFOOD SERVICE TEAM MEMBER [address] [place] [address] [facility] Start: 09-10-2024 End: 09-10-2025 CBC W Auto Differential panel - Blood CBC and differential Lab Routine Encounter for wellness examination in adult Expected: 09/10/2024 (Approximate), Expires: 09/10/2025 [facility] Work Phone: Comment on above: Expected: 09/10/2024 (Approximate), Expires: 09/10/2025 Start: 09-10-2024 End: 09-10-2025 Cobalamin (Vitamin B12) [Mass/volume] in Serum or Plasma Vitamin B12 Lab Routine Iron deficiency anemia, unspecified iron deficiency anemia type Expected: 09/10/2024 (Approximate), Expires: 09/10/2025 [facility] Comment on above: Expected: 09/10/2024 (Approximate), Expires: 09/10/2025 Start: 09-10-2024 End: 09-10-2025 Comprehensive metabolic 2000 panel - Serum or Plasma Comprehensive metabolic panel Lab Routine Encounter for wellness examination in adult Expected: 09/10/2024 (Approximate), Expires: 09/10/2025 [facility] Comment on above: Expected: 09/10/2024 (Approximate), Expires: 09/10/2025 Start: 09-10-2024 End: 09-10-2025 Ferritin [Mass/volume] in Serum or Plasma Ferritin Lab Routine Iron deficiency anemia, unspecified iron deficiency anemia type Expected: 09/10/2024 (Approximate), Expires: 09/10/2025 [facility] Comment on above: Expected: 09/10/2024 (Approximate), Expires: 09/10/2025 Start: 09-10-2024 End: 09-10-2025 Hemoglobin A1c/Hemoglobin.total in Blood Hemoglobin A1c Lab Routine Insulin resistance PCOS (polycystic ovarian syndrome) Encounter for wellness examination in adult Expected: 09/10/2024 (Approximate), Expires: 09/10/2025 [facility] Comment on above: Expected: 09/10/2024 (Approximate), Expires: 09/10/2025 Start: 09-10-2024 End: 09-10-2025 Insulin, random Insulin, random Lab Routine Insulin resistance PCOS (polycystic ovarian syndrome) Expected: 09/10/2024 (Approximate), Expires: 09/10/2025 [facility] Comment on above: Expected: 09/10/2024 (Approximate), Expires: 09/10/2025 Start: 09-10-2024 End: 09-10-2025 Iron + transferrin + TIBC Iron + transferrin + TIBC Lab Routine Iron deficiency anemia, unspecified iron deficiency anemia type Expected: 09/10/2024 (Approximate), Expires: 09/10/2025 [facility] Comment on above: Expected: 09/10/2024 (Approximate), Expires: 09/10/2025 Start: 09-10-2024 End: 09-10-2025 Lipid 1996 panel - Serum or Plasma Lipid panel Lab Routine Encounter for wellness examination in adult Expected: 09/10/2024 (Approximate), Expires: 09/10/2025 [facility] Comment on above: Expected: 09/10/2024 (Approximate), Expires: 09/10/2025 Start: 09-10-2024 End: 09-10-2025 Thyrotropin [Units/volume] in Serum or Plasma TSH Lab Routine Encounter for wellness examination in adult Expected: 09/10/2024 (Approximate), Expires: 09/10/2025 [facility] Comment on above: Expected: 09/10/2024 (Approximate), Expires: [...] uterine fibroid 08/21/2024 12:53 PM EST Virtual [facility] Start: 08-10-2024 End: 08-10-2024 Telemedicine consultation with patient 08/10/2024 12:00 PM EST Telemedicine [facility] [address] [facility] [address] [place] [address] Melani Zaman MD [address] [facility] [address] [place], [place] [id number] [facility] Start: 07-24-2024 End: 07-24-2024 Patient encounter procedure 07/24/2024 1:30 PM EST Office Visit [facility] [address] [place] [phone] Darlene Julien, ELECTRICAL ENGINEERING TEACHER-SEAFOOD SERVICE TEAM MEMBER [address] [place], [place] [id number] [facility] Start: 07-07-2024 End: 07-07-2024 Telemedicine consultation with patient 07/07/2024 11:30 AM EST Telemedicine [facility] [address] [place] [phone] Darlene Julien, ELECTRICAL ENGINEERING TEACHER-SEAFOOD SERVICE TEAM MEMBER [address] [place] [address] [facility] Start: 06-26-2024 End: 06-26-2024 Admission to same day surgery center 06/26/2024 11:30 AM EST - 06/26/2024 3:30 PM EST Surgery [facility] [address] [place] [address] Melani Zaman MD [address] [facility] [address] [place] [address] Laparoscopic Myomectomy [43395 (CPT )] [facility] Comment on above: Laparoscopic Myomect raza [91264 (CPT )] Start: 06-26-2024 End: 06-26-2024 Chromotubation [...] physician 06/26/2024 10:00 AM EST Hospital Encounter [facility] [address] [place] [address] Melani Zaman MD [address] [place] [address] [address] Banks, [address] [address] [facility] Start: 06-26-2024 End: 06-26-2024 Chromotubation [...] uterine bleeding Expected: 05/18/2024 (Approximate), Expires: 05/18/2025 [facility] Work Phone: Comment on above: Expected: 05/18/2024 (Approximate), Expires: 05/18/2025 Start: 05-18-2024 End: 05-18-2025 Hemoglobin A1c/Hemoglobin.total in Blood Hemoglobin A1C Lab Routine Screening for diabetes mellitus Expected: 05/18/2024 (Approximate), Expires: 05/18/2025 [facility] Work Phone: Comment on above: Expected: 05/18/2024 (Approximate), Expires: 05/18/2025 Start: 05-18-2024 End: 05-18-2025 MR Pelvis WO and W contrast IV MR pelvis w and wo IV contrast Imaging Routine Uterine leiomyoma, unspecified location Expected: 05/18/2024, Expires: 05/18/2025 [facility] Work Phone: Comment on above: Expected: 05/18/2024 , Expires: 05/18/2025 Start: 05-18-2024 End: 05-18-2025 Mullerian inhibiting substance [Mass/volume] in Serum or Plasma Antimullerian Hormone (Amh) Lab Routine PCOS (polycystic ovarian syndrome) Expected: 05/18/2024 (Approximate), Expires: 05/18/2025 [facility] Service Area Work Phone: Comment on above: Expected: 05/18/2024 (Approximate), Expires: 05/18/2025 Start: 05-06-2024 End: 05-06-2024 Patient encounter procedure 05/06/2024 9:00 AM EDT Office Visit [facility] [address] [place] [phone] Shama Ash PA [address] [place] [address] [facility] Start: 04-08-2024 End: 04-08-2024 Patient encounter procedure 04/08/2024 3:00 PM EDT Office Visit [facility] [address] [place] [phone] Abel Alvarez, DO [address] [facility] [address] [place] [address] [facility] Start: 03-25-2024 End: 03-25-2025 Measurement of occult blood in single stool specimen Occult blood x 1, stool Lab Routine Iron deficiency anemia, unspecified iron deficiency anemia type Expected: 03/25/2024 (Approximate), Expires: 03/25/2025 [facility] Work Phone: Comment on above: Expected: 03/25/2024 (Approximate), Expires: 03/25/2025 Start: 03-22-2024 COVID-19 Vaccine ( season) COVID-19 Vaccine ( season) [facility] Start: 03-22-2024 COVID-19 Vaccine ( season) COVID-19 Vaccine ( season) [facility] Start: 03-22-2024 Influenza vaccination Influenza Vacc ine (#1) [facility] Start: 03-12-2024 End: 03-12-2025 CBC W Auto Differential panel - Blood CBC and differential Lab Routine Iron deficiency anemia, unspecified iron deficiency anemia type Expected: 03/12/2024 (Approximate), Expires: 03/12/2025 [facility] Work Phone: Comment on above: Expected: 03/12/2024 (Approximate), Expires: 03/12/2025 Start: 03-12-2024 End: 03-12-2025 Ferritin [Mass/volume] in Serum or Plasma Ferritin Lab Routine Iron deficiency anemia, unspecified iron deficiency anemia type Expected: 03/12/2024 (Approximate), Expires: 03/12/2025 [facility] Comment on above: Expected: 03/12/2024 (Approximate), Expires: 03/12/2025 Start: 03-12-2024 End: 03-12-2025 Iron and Iron binding capacity panel - Serum or Plasma Iron level Lab Routine Iron deficiency anemia, unspecified iron deficiency anemia type Expected: 03/12/2024 (Approximate), Expires: 03/12/2025 [facility] Comment on above: Expected: 03/12/2024 (Approximate), Expires: 03/12/2025 Start: 03-12-2024 End: 03-12-2024 Patient encounter procedure 03/12/2024 9:20 AM EDT Office Visit [facility] [address] [place] [address] Lucinda Rodriguez NP [address] [place] [address] Iron deficiency anemia, unspecified iron deficiency anemia type (Primary Dx); Insulin resistance [facility] Comment on above: Iron deficiency anem ia, unspecified iron deficiency anemia type (Primary Dx); Insulin resistance Start: 12-30-2021 DTaP/Tdap/Td Vaccine s (2 - Td or Tdap) DTaP/Tdap/Td Vaccines (2 - Td or Tdap) [facility] Start: 02-19-2012 Screening for malign ant neoplasm of cervix HPV/Cotest [facility] Start: 2010 Pneumococcal Vaccine : Pediatrics and At-Risk Adult Patients (1 of 2 - PCV) Pneumococcal Vaccine: Pediatrics and At-Risk Adult Patients (1 of 2 - PCV) [facility] Start: 2010 Urine screening for protein CKD: Urine Protein Screening [facility] Start: 2009 Hepatitis C screening Hepatitis C Sc reening [facility] Start: 02-19-2004 Varicella vaccination Varicell a Vaccines (1 of 2 - 13+ 2-dose series) [facility] Start: 1997 Pneumococcal Vaccine : Pediatrics (0 to 5 Years) and At-Risk Patients (6 to 64 Years) (1 of 2 - PCV) Pneumococcal Vaccine: Pediatrics (0 to 5 Years) and At-Risk Patients (6 to 64 Years) (1 of 2 - PCV) [facility] Start: 02-19-1992 MMR Vaccines (1 of 1 - Standard series) MMR Vaccines (1 of 1 - Standard series) [facility] Start: 1991 HIV screening HIV Screening [facility] Start: 1991 Lipid panel Lipid Panel [facility] Start: 1991 Yearly Adult Physical Yearly Adult P hysical [facility] Bacteria identified in Urine by Culture Urine culture Microbiology Routine Screen for STD (sexually transmitted disease) Ordered: 09/23/2024 [facility] Comment on above: Ordered: 09/23/2024 End: 06-26-2024 Blood type and Indirect antibody screen panel - Blood Type And Screen Lab Timed As needed (Lab) until discontinued starting 06/26/2024 [facility] Service Area Work Phone: Comment on above: As needed (Lab) unti l discontinued starting 06/26/2024 End: 08-21-2024 Blood type and Indirect antibody screen panel - Blood Type And Screen Lab Timed As needed (Lab) until discontinued starting 08/21/2024 [facility] Service Area Work Phone: Comment on above: As needed (Lab) unti l discontinued starting 08/21/[address] w/materials Exploration Laparoscopy with Chromopertubation Intramural, submucous, and subserous leiomyoma of uterus Virtual U A OR Cytology Cervical or vaginal smear or scraping study Pap Smear Pathology and Cytology Routine Well woman exam with routine gynecological exam Ordered: 09/23/2024 [facility] Work Phone: Comment on above: Ordered: 09/23/2024 Human papilloma viru s DNA [Presence] in Unspecified specimen by Probe with amplification HPV DNA probe, amplified Microbiology Routine Well woman exam with routine gynecological exam Ordered: 09/23/2024 [facility] Comment on above: Ordered: 09/23/2024 Hysteroscopy diagnos tic separate procedure HYSTEROSCOPY, DIAGNOSTIC Intramural, submucous, and subserous leiomyoma of uterus Virtual AHU A OR Hysteroscopy removal leiomyomata HYSTEROSCOPY, WITH UTERINE MYOMECTOMY Submucous uterine fibroid Virtual AHU A OR Laps myomectomy exc 5/> myomas >250 grams MYOMECTOMY, LAPAROSCOPIC Intramural, submucous, and subserous leiomyoma of uterus Virtual AHU A OR Surgical pathology study [facility] Work Phone: Comment on above: Release Upon Orderin g for 1 Occurrences starting 06/26/2024, 1 completed Surgical pathology study [facility] Work Phone: Comment on above: Release Upon Orderin g for 1 Occurrences starting 08/21/2024, 1 completed US.doppler Uterus an d Fallopian tubes W saline IU US sonohysterogram Imaging Routine Intramural, submucous, and subserous leiomyoma of uterus 07/24/2024 2:36 PM EST [facility] Service Area Work Phone: End: 08-21-2024 VERIFY ABO/Rh Group Test VERIFY ABO/Rh Group Test Lab Routine Once (Lab) for 1 Occurrences starting 08/21/2024 until 08/21/2024 [facility] Work Phone: Comment on above: Once (Lab) for 1 Occ urrences starting 08/21/2024 until 08/21/2024 Immunizations Immunization Date Immunization Notes Care Provider Mahsa alarcon 05-04-2024 influenza virus vacc ine, unspecified formulation Lucinda Aichholz CENTRIFUGAL SEPARATOR Work Phone: [facility] 04-21-2023 influenza virus vacc ine, unspecified formulation Lucinda Aichholz CENTRIFUGAL SEPARATOR Work Phone: [facility] 10-05-2021 Pfizer Purple Cap SARS-CoV-2 Vaccination Lucinda Aichholz CENTRIFUGAL SEPARATOR Work Phone: [facility] 04-04-2021 Pfizer Purple Cap SARS-CoV-2 Vaccination Lucinda Aichholz CENTRIFUGAL SEPARATOR Work Phone: [facility] 03-14-2021 Pfizer Purple Cap SARS-CoV-2 Vaccination Lucinda Aichholz CENTRIFUGAL SEPARATOR Work Phone: [facility] 04-18-2020 influenza, seasonal, injectable Lucinda Aichholz CENTRIFUGAL SEPARATOR Work Phone: [facility] 05-02-2017 influenza, seasonal, injectable Lucinda Aichholz CENTRIFUGAL SEPARATOR Work Phone: [facility] 04-17-2013 influenza, seasonal, injectable Lucinda Aichholz CENTRIFUGAL SEPARATOR Work Phone: [facility] 07-17-2012 hepatitis B vaccine, adult dosage Lucinda Aichholz CENTRIFUGAL SEPARATOR Work Phone: [facility] 01-31-2012 hepatitis B vaccine, adult dosage Lucinda Aichholz CENTRIFUGAL SEPARATOR Work Phone: [facility] 12-31-2011 hepatitis B vaccine, adult dosage Lucinda Aichholz CENTRIFUGAL SEPARATOR Work Phone: [facility] 12-31-2011 tetanus toxoid, redu lashanda diphtheria toxoid, and acellular pertussis vaccine, adsorbed Lucinda Aichholz CENTRIFUGAL SEPARATOR Work Phone: [facility] Payers Date Payer Category P[facility] / [facility]ayer (Effective 2022-Present) Name: Barb Estrada Member ID: [id number] Relation to Subscriber: Self Name: Barb Estrada Subscriber ID: [id number] Payer ID: Not on file Type: Not on file Address: [address] [id number] 2022 [facility] [id number] 2022 Unknown BCBS BCBS [id number] 2022-Present [phone] [address] [place] [address] [id number] 2022 Unknown [id number] 2019 Unknown [id number] [id number] 1991 Unknown [id number] 2.16.840.1.156874.3.579.2. 593 1991 Unknown [id number] 2.16.840.1.628147.3.579.2. 593 1991 Unknown [id number] 2.16.840.1.481405.3.579.2. 593 1991 Unknown [id number] 2.16.840.1.468922.3.579.2. 1246 1991 Unknown [id number] 2.16.840.1.763434.3.579.2. 124 1991 Unknown [id number] 2.16.840.1.469121.3.579.2. 2 1991 Unknown [id number] 2.16.840.1.281189.3.579.2. 124 1991 Unknown [id number] 2.16.840.1.714187.3.579.2. 124 1991 Unknown [id number] 2.16.840.1.155368.3.579.2. 124 1991 Unknown [id number] 2.16.840.1.054710.3.579.2. 1244 1991 Unknown [id number] 2.16.840.1.293753.3.579.2. 124 1991 Unknown [id number] 2.16.840.1.723291.3.579.2. 1245 1991 Unknown [id number] 2.16.840.1.727493.3.579.2. 5 1991 Unknown [id number] 2.16.840.1.533274.3.579.2. 5 1991 Unknown [id number] 2.16.840.1.763345.3.579.2. 9 1991 Unknown [id number] 2.16.840.1.737752.3.579.2. 9 1991 Unknown [id number] 2.16.840.1.085880.3.579.2. 1258 1991 Unknown [id number] 2.16.840.1.976246.3.579.2. 9 1991 Unknown [id number] 2.16.840.1.124625.3.579.2. 9 1959 Self-pay [id number] Unknown [id number] 2.16.840.1.458721.3.579.2. 593 Social History Date Type Detail Facility Unknown if ever smoked [facility] Other Start: 05-18-2024 End: 09-10-2024 Sex Assigned At [facility] Start: 03-23-2023 End: 11-13-2023 Tobacco smoking status TNIS Never smoked tobacco (finding) [facility] Start: 1991 Sex Assigned At Female [facility] Start: 03-23-2023 End: 05-18-2024 Tobacco use and exposure Smokeless tobacco non-user [facility] Start: 05-18-2024 End: 03-10-2025 Alcoholic beverage intake Current drinker of alcohol (finding) [facility] Start: 05-11-2024 Gender identity Identifies as female gender (finding) [facility] Work Phone: Start: 05-11-2024 Sexual orientation Heterosexua l (finding) [facility] Work Phone: Start: 05-08-2024 End: 09-21-2024 Exposure to SARS-CoV-2 (event) Not sure [facility] Start: 05-18-2024 End: 09-10-2024 History of Social [...] Not at all [facility] (I/We) worried whepolo er (my/our) food would run out before (I/we) got money to buy more. Never true [facility] Start: 10-13-2023 Alcohol Comment occasional alc ohol use [facility] Start: 1990 Sex assigned at Not on file [facility] Start: 06-27-2024 End: 09-14-2024 Exposure to SARS-CoV-2 (event) Unable to assess [facility] How hard is it for y ou to pay for the very basics like food, housing, medical care, and heating Not very hard [facility] Start: 10-15-2024 Sex Female (finding) [facility] NEGATED: Highlighted rowStart: NINF History of tobacco use Passive smoker [facility] Work Phone: Clinical Notes 10-12-2021 to 03-10-2025 Lucinda Rodriguez NP - 03/10/2025 9:40 AM Edilberto Rodriguez NP - 03/10/2025 6:01 AM Edilberto Rodriguez NP - 03/10/2025 5:59 AM Edilberto Rodriguez NP - 03/10/2025 5:59 AM EDTPatient Instructions Note Date & Type Note Facility 03-10-2025 History of Present illness Narrative Images from the original note were not included. Barb Estrada is a 35 y.o. female presents with chief complaint of Iron Deficiency HPI: Stopped taking her supplements in late october Anemia Presents for follow-up visit. There has been no abdominal pain, anorexia, bruising/bleeding easily, fever, leg swelling, light-headedness, malaise/fatigue, pallor, palpitations, paresthesias, pica or weight loss. Signs of blood loss that are not present include hematemesis, hematochezia, melena and menorrhagia. SUBJECTIVE: MEDICATIONS: Current Outpatient Medications Medication Instructions albuterol HFA 90 mcg/act inhaler 2 puffs, Inhalation, Every 6 hours PRN ethynodiol-ethinyl estradiol (Kelnor, Zovia) 1-35 MG-MCG tablet 1 tablet, Oral, Daily RT metFORMIN XR (GLUCOPHAGE-XR) 500 mg, Oral, Daily with evening meal, Do not crush, chew, or split. montelukast (SINGULAIR) 10 mg, Oral, Nightly ALLERGIES: Allergies Allergen Reactions Cat Dander REVIEW OF SYMPTOMS: Review of Systems Constitutional: Negative for appetite change, chills, fever, malaise/fatigue and weight loss. HENT: Negative for congestion, ear pain and sore throat. Eyes: Negative for pain, discharge, redness and visual disturbance. Respiratory: Negative for cough, shortness of breath and wheezing. Cardiovascular: Negative for chest pain, palpitations and leg swelling. Gastrointestinal: Negative for abdominal pain, anorexia, blood in stool, constipation, diarrhea, hematemesis, hematochezia, melena, nausea and vomiting. Genitourinary: Negative for difficulty urinating, dysuria, frequency and menorrhagia. Musculoskeletal: Negative for arthralgias, back pain, joint swelling and myalgias. Skin: Negative for pallor, rash and wound. Neurological: Negative for dizziness, tremors, seizures, syncope, light-headedness, headaches and paresthesias. Psychiatric/Behavioral: Negative for behavioral problems, self-injury and suicidal ideas. The patient is not nervous/anxious. Hematological: Does not bruise/bleed easily. Endocrine: Negative for polydipsia, polyphagia and polyuria. Allergic/Immunologic: Negative for environmental allergies and food allergies. PAST MEDICAL HISTORY Past Medical History: Diagnosis Date Encounter for gynecological examination (general) (routine) without abnormal findings History of COVID-19 long term current use of inhaled steroid Menorrhagia with regular cycle Mild intermittent asthma (HCC) Sinus tachycardia Yeast infection Past Surgical History: [...] maternal grandmother. OBJECTIVE: Visit Vitals BP (!) 148/100 (BP Location: Left arm, Patient Position: Sitting, BP Cuff Size: Large adult) Pulse 90 Temp 97.8 F (Temporal) Resp 18 Wt 240 lb 6.4 oz SpO2 97% BMI 40.00 kg/m OB Status Having periods Smoking Status [...] Normal pulses. Heart sounds: Normal heart sounds. No murmur heard. Pulmonary: Effort: Pulmonary effort is normal. Breath sounds: Normal breath sounds. No wheezing or rhonchi. Abdominal: General: Bowel sounds are normal. There [...] file. Problem List Items Addressed This Visit EMILY (iron deficiency anemia) Recent recheck of iron levels 71 (03/15) and currently on no iron, 4 months prior 105 this draw was while on iron After discussion with pt we will recheck labs again in 3 months to see if iron level stays stable or if we will need to restart supplements No family hx of anemias Morbid (severe) obesity due to excess calories ([facility]-HCC) - Primary Discussed with patient their BMI (actual, verses recommended). We have also discussed lifestyle modifications: attempts to perform physical activity as chronic conditions allow, also to monitor dietary intake: increasing protein/fruits/veggies and lowering carb intake (unless contraindicated). Limit sodas, juices, and sugary drinks. Associated Problem(s): EMILY (iron deficiency anemia) Recent recheck of iron levels 71 (03/15) and currently on no iron, 4 months prior 105 this draw was while on iron After discussion with pt we will recheck labs again in 3 months to see if iron level stays stable or if we will need to restart supplements No family hx of anemias Associated Problem(s): Morbid (severe) obesity due to excess calories ([facility]-HCC) Discussed with patient their BMI (actual, verses recommended). We have also discussed lifestyle modifications: attempts to perform physical activity as chronic conditions allow, also to monitor dietary intake: increasing protein/fruits/veggies and lowering carb intake (unless contraindicated). Limit sodas, juices, and sugary drinks. Associated Problem(s): Mild intermittent asthma (HCC) Medication: singulair, albuterol Albuterol use: documented in this encounter [facility] 03-10-2025 Instructions Lucinda Rodriguez NP - 03/10/2025 9:40 AM EDT Will check labs again in 06/15 documented in this encounter [facility] 10-13-2024 History of Present illness Narrative Associated [...] nursing note reviewed. Exam conducted with a engine hostler present. Vitals: Estimated body mass index is [...] Abel Alvarez DO documented in this encounter [facility] 09-23-2024 History of Present illness Narrative Reason [...] (BMI) of 40.0 to 44.9 in adult ([facility]) 10/01/2023 Past Medical History: Diagnosis Date Encounter for gynecological examination (general) (routine) without abnormal findings long term current use of inhaled steroid Yeast infection HISTORY PAST MEDICAL HISTORY SOCIAL HISTORY Past Medical History: Diagnosis Date Encounter for gynecological examination (general) (routine) without abnormal findings History of COVID-19 long term current use of inhaled steroid Menorrhagia with regular cycle Mild intermittent asthma ([facility]) Sinus tachycardia Yeast infection Social [...] nursing note reviewed. Exam conducted with a engine hostler present. Vitals: Estimated body mass index is [...] Abel Alvarez DO documented in this encounter [facility] 09-21-2024 History of Present illness Narrative Virtual [...] 09/21/2024 8:59 AM documented in this encounter [facility] Work Phone: 09-14-2024 History of Present illness Narrative Virtual or Telephone Consent: An interactive audio and video telecommunication system which permits real time communications between the patient (at the originating site) and provider (at the distant site) was utilized to provide this telehealth service reviewed, Authorization status not noted. Post Op Visit Seen Barb Pevely s/p Hysteroscopic myomectomy on [address] Zmaan. Doing well. No issues with bowel or [...] case has been reviewed at the [facility] WAGE AND HOUR INVESTIGATOR consensus conference via Zoom on 08/26/24. Schedule Follow up with DR. 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 d/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 08-21-2024 Note Formatting of this n ote might be different from the original. Patient arrived to [place] after procedure with Anesthesia and water valve repairer, procedure discussed, plan reviewed, VSS [facility] 08-21-2024 Miscellaneous Notes Patient arrived to [place] after procedure with Anesthesia and water valve repairer, procedure discussed, plan reviewed, VSS OPERATIVE REPORT Patient Name: Barb Estrada Log ID: [id number] Surgery Date: 08/21/2024 * Melani Zaman - [...] 08/21/24 2:21 PM documented in this encounter [facility] Work Phone: 08-21-2024 Note Formatting of this n ote might be different from the original. OPERATIVE REPORT Patient Name: Barb Estrada Log ID: [id number] Surgery Date: 08/21/2024 * Melani Zaman - [...] the procedure(s). Melani Zaman 08/21/24 2:21 PM [facility] Work Phone: 08-21-2024 Attending History and physical [...] ([facility] 12.4) Melani Zaman 08/10/2024 8:59 AM [facility] Work Phone: 08-21-2024 History and physical [...] 08/10/2024 8:59 AM documented in this encounter [facility] Work Phone: 08-21-2024 Attending History and physical [...] ([facility] 12.4) Melani Zaman 08/10/2024 8:59 AM [facility] Work Phone: 07-24-2024 History of Present illness [...] Zaman will place orders for surgery and naval engineer will reach back with date and details. Darlene Julien CNP 07/24/24 5:13 PM documented in this encounter [facility] Work Phone: 07-07-2024 History of Present illness [...] with Dr. Zaman RTW after 08-10-2024 Darlene Julien, NICHOLAS 07/07/24 12:08 PM documented in this encounter [facility] Work Phone: 06-26-2024 Miscellaneous Notes Operative Report [...] 06/26/24 1:01 PM documented in this encounter [facility] Work Phone: 06-26-2024 Note Formatting of this [...] the procedure(s). Melani Zaman 06/26/24 1:01 PM [facility] Work Phone: 06-26-2024 History and physical note [...] the note. Melani Zaman 06/26/24 7:29 AM [facility] Work Phone: 06-26-2024 History and physical note [...] about 5 mm sagittal T2 haste image /18.. The endometrium has normal thickness estimated at [...] intramural observation estimated about 4 cm image /. There are 2 adjacent intracavitary observations including [...] 06/26/24 7:29 AM documented in this encounter [facility] Work Phone: 05-18-2024 History of Present illness [...] normal. Dx LSC noted multifibroid uterus and WAGE AND HOUR INVESTIGATOR referred the patient for further surgical intervention. Patient also diagnosed previously with PCOS. Have you had any concerns about your fertility treatments so far? What are you goals for today's visit? 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 [...] 05/18/2024 9:02 AM documented in this encounter [facility] Work Phone: 03-12-2024 History of Present illness Narrative Associated Problem(s): Mild intermittent asthma (CMS/HCC) Cont w cathy Gandara in 6 months Associated Problem(s): EMILY (iron deficiency anemia) Continues with ferrous sulfate, Will check labs Cont with GI Pt is being referred [facility] fibroids removal-end of apr () for [...] (routine) without abnormal findings History of COVID-19 long term current use of inhaled steroid Menorrhagia with [...] 39.9 in adult documented in this encounter [facility] 06-24-2023 Evaluation note Encounter Date Diagnosis Assessment [...] no improvement in 2 to 3 days [facility] Other 11-21-2023 Evaluation note* Encounter Date Diagnosis [...] and rest, Tylenol as directed, rx of [place] and prednisone, OTC Flonase, cool mist humidifier, [...] treatment plan. Patient left in stable condition [facility] Other 03-24-2022 Evaluation note* Encounter Date Diagnosis [...] Patient care instructions given in writting by [facility] Care At Home document [facility] Other Evaluation noteNo assessment information available [facility] Work Phone: Evaluation note* Diagnosis Uterine leiomyoma, unspecified location- Primary PCOS (polycystic ovarian syndrome) Polycystic ovaries Fertility testing Screening for diabetes mellitus Abnormal uterine bleeding Unspecified disorder of menstruation and other abnormal bleeding from female genital tract documented in this encounter [facility] Work Phone: Evaluation note* Diagnosis Intramural, submucous, and subserous leiomyoma of uterus- Primary Uterine leiomyoma, unspecified location Intramural, submucous, and subserous leiomyoma of uterus documented in this encounter [facility] Work Phone: Evaluation note* Diagnosis Intramural, submucous, and subserous leiomyoma of uterus- Primary Intramural, submucous, and subserous leiomyoma of uterus Post-operative state Other postprocedural status Asthma Unspecified asthma Chronic renal insufficiency Chronic kidney disease, unspecified PCOS (polycystic ovarian syndrome) Polycystic ovaries Obesity Obesity, unspecified documented in this encounter [facility] Work Phone: Evaluation note* Diagnosis Postop check- Primary Follow-up examination, following unspecified surgery documented in this encounter [facility] Work Phone: Evaluation note* Diagnosis Iron deficiency anemia, unspecified iron deficiency anemia type- Primary Class 2 obesity due to excess calories without serious comorbidity with body mass index (BMI) of 39.0 to 39.9 in adult Mild intermittent asthma, unspecified whether complicated (CMS/HCC) documented in this encounter [facility] HealthcareEvaluation note* Diagnosis Iron deficiency anemia, unspecified iron deficiency anemia type- Primary documented in this encounter [facility] HealthcareEvaluation note* Diagnosis Intramural, submucous, and subserous leiomyoma of uterus- Primary Encounter for preprocedural laboratory examination documented in this encounter [facility] Work Phone: Evaluation note* Diagnosis Encounter for [...] obesity in adult documented in this encounter [facility] Work Phone: Evaluation note* Diagnosis Encounter for [...] deficiency anemia type documented in this encounter [facility] HealthcareEvaluation note* Diagnosis Encounter for wellness [...] diagnosis of hypertension documented in this encounter [facility] HealthcareEvaluation note* Diagnosis PCOS (polycystic ovarian syndrome)- Primary Polycystic ovaries Postop check Follow-up examination, following unspecified surgery documented in this encounter [facility] Work Phone: Evaluation note* Diagnosis Encounter for [...] for venereal disease documented in this encounter [facility] HealthcareEvaluation note* Diagnosis Encounter for wellness [...] unspecified whether complicated (CMS/HCC) BMI 40.0-44.9, adult ([facility]) Elevated blood pressure reading Elevated blood pressure [...] adult Mild intermittent asthma, unspecified whether complicated ([facility]) Encounter for wellness examination in adult- Primary Morbid (severe) obesity due to excess calories ([facility]) Body mass index (BMI) 39.0-39.9, adult Mild intermittent asthma without complication ([facility]) Insulin resistance Other abnormal glucose PCOS (polycystic ovarian syndrome) Polycystic ovaries Iron deficiency anemia, unspecified iron deficiency anemia type Elevated blood pressure reading Elevated blood pressure reading without diagnosis of hypertension Iron deficiency anemia, unspecified iron deficiency anemia type- Primary Anemia due to other cause, not classified documented in this encounter [facility] HealthcareEvaluation note* Diagnosis Encounter for wellness examination in adult- Primary Mild intermittent asthma, unspecified whether complicated (HCC) BMI 40.0-44.9, adult ([facility]) Elevated blood pressure reading Elevated blood pressure reading without diagnosis of hypertension Iron deficiency anemia, unspecified iron deficiency anemia type- Primary Elevated blood pressure reading Elevated blood pressure reading without diagnosis of hypertension Menorrhagia with regular cycle Class 3 severe obesity due to excess calories without serious comorbidity with body mass index (BMI) of 40.0 to 44.9 in adult ([facility]) Iron deficiency anemia, unspecified iron deficiency anemia type- Primary Class 2 obesity due to excess calories without serious comorbidity with body mass index (BMI) of 39.0 to 39.9 in adult Mild intermittent asthma, unspecified whether complicated ([facility]) Encounter for wellness examination in adult- Primary Morbid (severe) obesity due to excess calories ([facility]) Body mass index (BMI) 39.0-39.9, adult Mild [...] unspecified whether complicated (HCC) BMI 40.0-44.9, adult ([facility]) Elevated blood pressure reading Elevated blood pressure reading without diagnosis of hypertension Iron deficiency anemia, unspecified iron deficiency anemia type- Primary Elevated blood pressure reading Elevated blood pressure reading without diagnosis of hypertension Menorrhagia with regular cycle Class 3 severe obesity due to excess calories without serious comorbidity with body mass index (BMI) of 40.0 to 44.9 in adult ([facility]) Iron deficiency anemia, unspecified iron deficiency anemia type- Primary Class 2 obesity due to excess calories without serious comorbidity with body mass index (BMI) of 39.0 to 39.9 in adult Mild intermittent asthma, unspecified whether complicated (HCC) Encounter for wellness examination in adult- Primary Morbid (severe) obesity due to excess calories ([facility]) Body mass index (BMI) 39.0-39.9, adult Mild intermittent asthma without complication (HCC) Insulin resistance Other abnormal glucose PCOS (polycystic ovarian syndrome) Polycystic ovaries Iron deficiency anemia, unspecified iron deficiency anemia type Elevated blood pressure reading Elevated blood pressure reading without diagnosis of hypertension Poison carlos- Primary Contact dermatitis and other eczema due to plants (except food) documented in this encounter [facility] HealthcareEvaluation note* Diagnosis Encounter for wellness examination in adult- Primary Mild intermittent asthma, unspecified whether complicated (HCC) BMI 40.0-44.9, adult ([facility]) Elevated blood pressure reading Elevated blood pressure reading without diagnosis of hypertension Iron deficiency anemia, unspecified iron deficiency anemia type- Primary Elevated blood pressure reading Elevated blood pressure reading without diagnosis of hypertension Menorrhagia with regular cycle Class 3 severe obesity due to excess calories without serious comorbidity with body mass index (BMI) of 40.0 to 44.9 in adult ([facility]) Iron deficiency anemia, unspecified iron deficiency anemia type- Primary Class 2 obesity due to excess calories without serious comorbidity with body mass index (BMI) of 39.0 to 39.9 in adult Mild intermittent asthma, unspecified whether complicated (HCC) Encounter for wellness examination in adult- Primary Morbid (severe) obesity due to excess calories ([facility]) Body mass index (BMI) 39.0-39.9, adult Mild intermittent asthma without complication (HCC) Insulin resistance Other abnormal glucose PCOS (polycystic ovarian syndrome) Polycystic ovaries Iron deficiency anemia, unspecified iron deficiency anemia type Elevated blood pressure reading Elevated blood pressure reading without diagnosis of hypertension Mild intermittent asthma, unspecified whether complicated (HCC) documented in this encounter [facility] HealthcareEvaluation note* Diagnosis Encounter for wellness examination in adult- Primary Mild intermittent asthma, unspecified whether complicated (HCC) BMI 40.0-44.9, adult ([facility]) Elevated blood pressure reading Elevated blood pressure reading without diagnosis of hypertension Iron deficiency anemia, unspecified iron deficiency anemia type- Primary Elevated blood pressure reading Elevated blood pressure reading without diagnosis of hypertension Menorrhagia with regular cycle Class 3 severe obesity due to excess calories without serious comorbidity with body mass index (BMI) of 40.0 to 44.9 in adult ([facility]) Iron deficiency anemia, unspecified iron deficiency anemia type- Primary Class 2 obesity due to excess calories without serious comorbidity with body mass index (BMI) of 39.0 to 39.9 in adult Mild intermittent asthma, unspecified whether complicated (HCC) Encounter for wellness examination in adult- Primary Morbid (severe) obesity due to excess calories ([facility]) Body mass index (BMI) 39.0-39.9, adult Mild intermittent asthma without complication (HCC) Insulin resistance Other abnormal glucose PCOS (polycystic ovarian syndrome) Polycystic ovaries Iron deficiency anemia, unspecified iron deficiency anemia type Elevated blood pressure reading Elevated blood pressure reading without diagnosis of hypertension Rash- Primary Rash and other nonspecific skin eruption documented in this encounter [facility] HealthcareEvaluation note* Diagnosis Encounter for wellness examination in adult- Primary Mild intermittent asthma, unspecified whether complicated (HCC) BMI 40.0-44.9, adult ([facility]) Elevated blood pressure reading Elevated blood pressure reading without diagnosis of hypertension Iron deficiency anemia, unspecified iron deficiency anemia type- Primary Elevated blood pressure reading Elevated blood pressure reading without diagnosis of hypertension Menorrhagia with regular cycle Class 3 severe obesity due to excess calories without serious comorbidity with body mass index (BMI) of 40.0 to 44.9 in adult ([facility]) Iron deficiency anemia, unspecified iron deficiency anemia type- Primary Class 2 obesity due to excess calories without serious comorbidity with body mass index (BMI) of 39.0 to 39.9 in adult Mild intermittent asthma, unspecified whether complicated (HCC) Encounter for wellness examination in adult- Primary Morbid (severe) obesity due to excess calories ([facility]) Body mass index (BMI) 39.0-39.9, adult Mild intermittent asthma without complication (HCC) Insulin resistance Other abnormal glucose PCOS (polycystic ovarian syndrome) Polycystic ovaries Iron deficiency anemia, unspecified iron deficiency anemia type Elevated blood pressure reading Elevated blood pressure reading without diagnosis of hypertension Iron deficiency anemia, unspecified iron deficiency anemia type- Primary Morbid (severe) obesity due to excess calories ([facility]) documented in this encounter [facility]History general Narrative - Reported* Type Description Date Medical History asthma Surgical History cyst removal 2004 Hospitalization History See Above Hospitalization History covid 2020 [facility] Other Reason for visit Narrative* Imaging (Routine) - Authorized Specialty Diagnoses / Procedures Referred By Rhoda hewitt Referred To Contact Radiology Diagnoses Uterine leiomyoma, unspecified location Procedures MR pelvis w and wo IV contrast MR pelvis w and wo IV contrast Melani Zaman MD [address], [address] [address] Phone: tel: fax: Referral ID Status Reason Start Date Expiration Date Visits Requested Visits Authorized [id number] Authorized Perform Procedure 4 05/18/2025 1 1 [facility] Work Phone: Requiq for visit Narrative* Auth/Cert Specialty Diagnoses / Procedures Referred By Rhoda hewitt Referred To Contact Diagnoses Intramural, submucous, and subserous leiomyoma of uterus Intramural, submucous, and subserous leiomyoma of uterus [D25.1, D25.0, D25.2] Procedures DC LAPS MYOMECTOMY EXC 5/> MYOMAS >250 GRAMS DC CHROMOTUBATION OVIDUCT W/MATERIALS DC HYSTEROSCOPY DIAGNOSTIC SEPARATE PROCEDURE Laparoscopic Myomectomy Exploration Laparoscopy; Bilateral Chromopertubation Diagnostic Hysteroscopy Melani Zaman MD [address], [address] [address] Phone: tel: fax: [facility] [place] [address] [place] [address] fax: Referral ID Status Reason Start Date Expiration Date Visits Re quested Visits Authorized [id number] 1 1 [facility] Work Phone: Reason for visit Narrative* Imaging (Routine) - Authorized Specialty Diagnoses / Procedures Referred By Rhoda hewitt Referred To Contact Radiology Diagnoses Intramural, submucous, and subserous leiomyoma of uterus Procedures US sonohysterogram Melani Zaman MD [address] [facility] [address] [place], [address] [address] Phone: tel: fax: Referral ID Status Reason Start Date Expiration Date Visits Requested Visits Authorized [id number] Authorized Perform Procedure 06/26/2024 06/26/2025 1 1 [facility] Work Phone: Reason for visit Narrative* Auth/Cert Specialty Diagnoses / Procedures Referred By Rhoda hewitt Referred To Contact Diagnoses Submucous uterine fibroid Submucous uterine fibroid [D25.0] Procedures DC HYSTEROSCOPY REMOVAL LEIOMYOMATA Hysteroscopy; Uterine Myomectomy Melani Zaman MD [address] [facility] [place], [place] [address] Phone: tel: fax: [facility] [place] [address] [place] [address] fax: Referral ID Status Reason Start Date Expiration Date Visits Re quested Visits Authorized [id number] 1 1 [facility] Work Phone: Summary Purpose Family History No [...] Reason Comments Gynecologic Exam Reason Comments Colposcopy Reason Comments Iron Deficiency INFORMATION SOURCE (unrecogn ized section and content) DATE CREATED AUTHOR 08/03/2022 [facility] DATE CREATED AUTHOR AUTHOR'S ORGANIZ ATION 08/20/2024 [facility] DATE CREATED AUTHOR AUTHOR'S ORGANIZ ATION 08/28/2024 [facility] DATE CREATED AUTHOR AUTHOR'S ORGANIZ ATION 09/21/2024 [facility] DATE CREATED AUTHOR AUTHOR'S ORGANIZ ATION 10/15/2024 [facility] DATE CREATED AUTHOR AUTHOR'S ORGANIZ ATION 03/11/2025 [facility] dical Specialists EPIC Care Teams (unrecognized [...] January 24, 2024 End: January 24, 2024 Long Term Relationship Specialty Start Date End Date Cathy Wood LPN Licensed Practical Nurse 05/18/24 Long Term Relationship Specialty Start Date End Date Lucinda Rodriguez, ELECTRICAL ENGINEERING TEACHER-[employer]BER [address] [place] [address] PCP - General 06/03/24 Cathy Wood LPN Licensed Practical Nurse 05/18/24 Long Term Relationship Specialty Start Date End Date Katlyn Damon MD [address] [place] [address] PCP - External PCP Family Medicine 12/29/22 Chet Guajardo MD [address] [place] [address] PCP - General Family Medicine 10/01/23 Lucinda Rodriguez NP [address] [place] [address] PCP - [facility] 10/21/23 Lucinda Rodriguez NP [address] [place] [address] Nurse Practitioner Family Medicine 10/01/23 Long Term Relationship Specialty Start Date End Date Lucinda Rodriguez APRN-[employer]BER [address] [place] [address] PCP - General 06/03/24 Cathy Wood LPN Licensed Practical Nurse 05/18/24 Long Term Relationship Specialty Start Date End Date Lucinda Rodriguez ELECTRICAL ENGINEERING TEACHER-[employer] MEMBER [address] [place] [address] PCP - General 06/03/24 Cathy Wood LPN Licensed Practical Nurse 05/18/24 Long Term Relationship Specialty Start Date End Date Katlyn Damon MD [address] [place] [id number] PCP - External PCP Family Medicine 12/29/22 Chet Guajardo MD [address] [place] [address] PCP - General Family Medicine 10/01/23 Lucinda Rodriguez NP [address] [place] [address] PCP - [facility] [employer] 10/21/23 Lucinda Rodriguez NP [address] [place] [address] Nurse Practitioner Family Medicine 10/01/23 Long Term Relationship Specialty Start Date End Date Katlyn Damon MD [address] [place] [address] PCP - External PCP Family Medicine 12/29/22 Chet Guajardo MD [address] [place] [address] PCP - General Family Medicine 10/01/23 Lucinda Rodriguez NP [address] [place] [address] PCP - [facility] 10/21/23 Lucinda Rodriguez NP [address] [place] [address] Nurse Practitioner Family Medicine 10/01/23 Long Term Relationship Specialty Start Date End Date Katlyn Damon MD [address] [place] [address] PCP - External PCP Family Medicine 12/29/22 Chet Guajardo MD [address] [place] [address] PCP - General Family Medicine 10/01/23 Lucinda Rodriguez, HECTOR [address] [place] [address] PCP - [facility] [employer] 10/21/23 Lucinda Rodriguez NP [address] [place] [address] Nurse Practitioner Family Medicine 10/01/23 Long Term Relationship Specialty Start Date End Date Katlyn Damon MD [address] [place] [address] PCP - External PCP Family Medicine 12/29/22 Chet Guajardo MD [address] [place] [address] PCP - General Family Medicine 10/01/23 Lucinda Rodriguez NP [address] [place] [address] PCP - [facility] [employer] 10/21/23 Lucinda Rodriguez NP [address] [place] [address] Nurse Practitioner Family Medicine 10/01/23 Long Term Relationship Specialty Start Date End Date Katlyn Damon MD [address] [place] [address] PCP - External PCP Family Medicine 12/29/22 Chet Guajardo MD [address] [place] [address] PCP - General Family Medicine 10/01/23 Lucinda Rodriguez NP [address] [place] [address] PCP - [facility] [employer] 10/21/23 Lucinda Rodriguez NP [address] [place] [address] Nurse Practitioner Family Medicine 10/01/23 Long Term Relationship Specialty Start Date End Date Lucinda Rodriguez APRN-[employer]BER [address] [place] [address] PCP - General 06/03/24 Cathy Wood LPN Licensed Practical Nurse 05/18/24 Long Term Relationship Specialty Start Date End Date Katlyn Damon MD [address] [place] [address] PCP - External PCP Family Medicine 12/29/22 Chet Guajardo MD [address] [place] [address] PCP - General Family Medicine 10/01/23 Lucinda Rodriguez NP [address] [place] [address] PCP - [facility] [employer] 10/21/23 Lucinda Rodriguez NP [address] [place] [address] Nurse Practitioner Family Medicine 10/01/23 Long Term Relationship Specialty Start Date End Date Katlyn Damon MD [address] [phone] PCP - External PCP Family Medicine 12/29/22 Chet Guajadro MD [address] [place] [address] PCP - General Family Medicine 10/01/23 Lucinda Rodriguez NP [address] [place] [address] PCP - [facility] [employer] 10/21/23 Lucinda Rodriguez NP [address] [place] [address] Nurse Practitioner Family Medicine 10/01/23 Long Term Relationship Specialty Start Date End Date Katlyn Damon MD [address] [phone] PCP - External PCP Family Medicine 12/29/22 Chet Guajardo MD [address] [place] [address] PCP - General Family Medicine 10/01/23 Lucinda Rodriguez NP [address] [place] [address] PCP - [facility] [employer] 10/21/23 Lucinda Rodriguez NP [address] [place] [address] Nurse Practitioner Family Medicine 10/01/23 Long Term Relationship Specialty Start Date End Date Katlyn Damon MD [address] [place] [address] PCP - External PCP Family Medicine 12/29/22 Chet Guajardo MD [address] [place] [address] PCP - General Family Medicine 10/01/23 Lucinda Rodriguez NP [address] [place] [address] PCP - [facility] 10/21/23 Lucinda Rodriguez NP [address] [place] [address] Nurse Practitioner Family Medicine 10/01/23 Long Term Relationship Specialty Start Date End Date Lucinda Rodriguez APRN-[employer]BER [address] [place] [address] PCP - General 06/03/24 Cathy Wood LPN Licensed Practical Nurse 05/18/24 Long Term Relationship Specialty Start Date End Date Katlyn Damon MD [address] [place] [address] PCP - External PCP Family Medicine 12/29/22 Chet Guajardo MD [address] [place] [address] PCP - General Family Medicine 10/01/23 Lucinda Rodriguez NP [address] [place] [address] PCP - [facility] 10/21/23 Lucinda Rodriguez NP [address] [place] [address] Nurse Practitioner Family Medicine 10/01/23 Long Term Relationship Specialty Start Date End Date Katlyn Damon MD [address] [place] [address] PCP - External PCP Family Medicine 12/29/22 Chet Guajardo MD [address] [place] [address] PCP - General Family Medicine 10/01/23 Lucinda Rodriguez NP [address] [place] [address] PCP - [facility] 10/21/23 Lucinda Rodriguez NP [address] [place] [address] Nurse Practitioner Family Medicine 10/01/23 Long Term Relationship Specialty Start Date End Date Katlyn Damon MD [address] [place] [address] PCP - External PCP Family Medicine 12/29/22 Chet Guajardo MD [address] [place] [address] PCP - General Family Medicine 10/01/23 Lucinda Rodriguez NP [address] [place] [address] PCP - [facility] 10/21/23 Lucinda Rodriguez NP [address] [place] [address] Nurse Practitioner Family Medicine 10/01/23 Team Status: Inactive Member Role Status Dates Abel Alvarez DO Attending Provider Active Start : October 13, 2024 End: October 13, 2024 Long Term Relationship Specialty Start Date End Date Katlyn Damon MD [address] [place] [address] PCP - External PCP Family Medicine 12/29/22 Chet Guajardo MD [address] [place] [address] PCP - General Family Medicine 10/01/23 Lucinda Rodriguez NP [address] [place] [address] PCP - [facility] 10/21/23 Lucinda Rodriguez NP [address] [place] [address] Nurse Practitioner Family Medicine 10/01/23 Long Term Relationship Specialty Start Date End Date Katlyn Damon MD [address] [place] [address] PCP - External PCP Family Medicine 12/29/22 Chet Guajardo MD [address] [place] [address] PCP - General Family Medicine 10/01/23 Lucinda Rodriguez NP [address] [place] [address] PCP - [employer] 10/21/23 Lucinda Rodriguez NP [address] [place] [address] Nurse Practitioner Family Medicine 10/01/23 Long Term Relationship Specialty Start Date End Date Katlyn Damon MD [address] [place] [address] PCP - External PCP Family Medicine 12/29/22 Chet Guajardo MD [address] [place] [address] PCP - General Family Medicine 10/01/23 Lucinda Rodriguez NP [address] [place] [address] PCP - [employer] 10/21/23 Lucinda Rodriguez NP [address] [place] [address] Nurse Practitioner Family Medicine 10/01/23 Long Term Relationship Specialty Start Date End Date Katlyn Damon MD [address] [place] [address] PCP - External PCP Family Medicine 12/29/22 Chet Guajardo MD [address] [place] [address] PCP - General Family Medicine 10/01/23 Lucinda Rodriguez NP [address] [place] [address] PCP - [employer] 10/21/23 Lucinda Rodriguez NP [address] [place] [address] Nurse Practitioner Family Medicine 10/01/23 Long Term Relationship Specialty Start Date End Date Katlyn Damon MD [address] [place] [address] PCP - External PCP Family Medicine 12/29/22 Chet Guajardo MD [address] [place] [address] PCP - General Family Medicine 10/01/23 Lucinda Rodriguez NP [address] [place] [address] PCP - [facility] 10/21/23 Lucinda Rodriguez NP [address] [place] [address] Nurse Practitioner Family Medicine 10/01/23 Long Term Relationship Specialty Start Date End Date Katlyn Damon MD [address] [place] [address] PCP - External PCP Family Medicine 12/29/22 Chet Guajardo MD [address] [place] [address] PCP - General Family Medicine 10/01/23 Lucinda Rodriguez NP [address] [place] [address] PCP - [employer] 10/21/23 Lucinda Rodriguez NP [address] [place] [address] Nurse Practitioner Family Medicine 10/01/23 Long Term Relationship Specialty Start Date End Date Katlyn Damon MD [address] [place] [address] PCP - External PCP Family Medicine 12/29/22 Chet Guajardo MD [address] [place] [address] PCP - General Family Medicine 10/01/23 Lucinda Rodriguez NP [address] [place] [address] PCP - [employer] 10/21/23 Lucinda Rodriguez NP [address] [place] [address] Nurse Practitioner Family Medicine 10/01/23 Goals (unrecognized [...] BE BASED ON THE PRIMARY CLINICAL RECORDS. [employer] provides no warranty or guarantee of the accuracy or completeness of information in this document.
--- OUTSIDE RECORDS SUMMARY | 2025-05-03 21:02 | XMS_ITS | Encounter Summary ---
Author Organization [facility] Address [address] [place] [address] Care Team Providers Care Paramedic Instructor Name Role Phone Katlyn Damon MD Unavailable [phone] Chet Guajardo MD Primary Care Provider [phone] Lucinda Rodriguez NP Unavailable [phone] Lucinda Rodriguez NP Unavailable [phone] Encounter Details Date Type Department Care Team (Late st Contact Info) Description 11/13/2023 Abstract [facility] [address] [place] [address] Pauline Laughlin LPN [address] [place] [address] Social History Tobacco Use Types [...] week 08/12/2023 How often do you attend [facility] or [facility] services? 1 to 4 times per year 08/12/2023 Do you belong to any clubs o r organizations such as temple groups, unions, fraternal or athletic groups, or [...] Recorded Patient Health Questionnaire-2 Score 0 10/01/2023 [facility] - [...] place to sleep or slept in a senior living (including now)? No 08/12/2023 Comments No Sex [...] EDT Office Visit [facility] [address] [place] [address] Abel Alvarez DO [address] [place] [address] documented as of this encounter Visit Diagnoses Not on filedocumented in this encounter Care Teams Paramedic Instructor Relationship Specialty Start Date End Date Katlyn Damon MD [address] [place] [address] PCP - External PCP Family Medicine 12/29/22 Chet Guajardo MD [address] [place] [address] PCP - General Family Medicine 10/01/23 Lucinda Rodriguez NP [address] [place] [phone] PCP - [facility] 10/21/23 Lucinda Rodriguez NP [address] [place] [address] Nurse Practitioner Family Medicine 10/01/23 documented as of this encounter
== END 2025-05-03 20:57 | disposition home or self-care (01) ==
LOC: LAB 20:56
PROVIDERS: PCP Nurse Practitioner; Visit Provider Obstetrics & Gynecology
DX: R87.610 Atypical squamous cells of undetermined significance on cytologic smear of cervix (ASC-US) (principal); R87.810 Cervical high risk human papillomavirus (HPV) DNA test positive; Z12.4 Encounter for screening for malignant neoplasm of cervix
CPT/HCPCS: 87624; 88175

== ENCOUNTER 2025-07-05 14:05 | Outpatient (OUT) | payer BC, SELFPAY ==
[2025-07-05 14:19] LABS: Hematocrit 38.4 % (36.0-48.0); Hemoglobin 12.8 g/dL (12.0-16.0); Immature Granulocytes Abs Auto 0.01 10^3/uL (0.00-0.03); Immature Granulocytes Pct Auto 0.1 % (0.0-0.5); Lymphocytes Absolute Auto 2.3 10^3/uL (1.2-3.8); Mean Corpuscular HGB Conc 33.3 g/dL (29.9-35.2); Mean Corpuscular Hemoglobin 29.8 pg (26.7-34.0); Mean Corpuscular Volume 89.5 fL (81.0-99.0); Platelet Count 315 10^3/uL (150-450); Red Blood Count 4.29 10^6/uL (4.20-5.40); White Blood Count 7.5 10^3/uL (4.0-11.0)
[2025-07-05 15:23] LABS: Iron 77.0 ug/dL (50.0-170.0); Percent Iron Saturation 24.4 %; Total Iron Binding Capacity 315.0 ug/dL (250.0-450.0)
[2025-07-05 15:47] LABS: Ferritin 114.0 ng/mL (8.0-252.0)
== END 2025-07-05 14:06 | disposition home or self-care (01) ==
PROVIDERS: PCP Nurse Practitioner; Visit Provider Nurse Practitioner
DX: D50.9 Iron deficiency anemia, unspecified (principal)
CPT/HCPCS: 36415; 82728; 83540; 83550; 85025